=== PATIENT | male | born 1950 | race Caucasian/White ===

== ENCOUNTER 2021-02-25 18:37 | Observation (INO) | payer MEDICARE, SELFPAY ==
[2021-02-25] VITALS (9 sets, daily range): BP systolic 116–160; BP diastolic 67–86; PULSE 78–107; RESP 16–30; TEMP 37–38.7; O2SAT 88–97; BMI 25.7
--- NOTE | 2021-02-25 19:30 | EKG12_ITS ---
Test Reason : SOB Blood Pressure : / mmHG Vent. Rate : 098 BPM Atrial Rate : 098 BPM P-R Int : 154 ms QRS Dur : 094 ms QT Int : 376 ms P-R-T Axes : 022 029 039 degrees QTc Int : 480 ms Normal sinus rhythm Prolonged QT Abnormal ECG Confirmed by MICHAELA BOO, GERONIMO ([id number]), story editor CARMELO FOREMAN ([id number]) on 03/01/2021 9:12:40 AM Referred By: Confirmed By:GERONIMO JENNINGS MD
--- NOTE | 2021-02-25 19:37 | ED.RN ---
NO OLD EKGS IN MUSE
[2021-02-25 20:01] LABS: Absolute Lymphocyte Count 0.46 X10^3/uL (0.83-4.51); Absolute Neutrophil Count 6.7 X10^3/uL (2.0-7.7); Basophil# 0.02 X10^3/uL; Basophil% 0.3 % (0-1); Eosinophil# 0.01 X10^3/uL; Eosinophils% 0.1 % (0-5); Hematocrit 37.5 % (40-54); Hemoglobin 12.4 g/dL (13.0-16.5); Lymphocyte # 0.46 X10^3/ul (0.83-4.51); Mean Corp Hgb Conc 33.1 g/dL (32-36); Mean Corpuscular Hgb 30.2 pg (27.0-32.0); Mean Corpuscular Volume 91.5 fL (80-94); Mean Platelet Vol. 9.5 fl (6.2-12.0); Monocyte# 0.41 X10^3/uL; Monocyte% 5.4 % (0-10); NRBC Flagged by Analyzer 0 % (0-5); Neutrophil # 6.68 X10^3/uL (2.7-7.7); Neutrophil % 87.7 % (47-70); POSITIVE DIFFERENTIAL YES; Platelet Count 142 K/mm3 (150-450); RBC Distribution Width CV 13.2 % (11.6-14.6); RBC Distribution Width SD 43.9 fl (35.1-43.9); White Blood Count 7.6 K/mm3 (4.4-11.0)
--- NOTE | 2021-02-25 20:10 | RAD_ITS ---
HISTORY: SOB EXAMINATION/TECHNIQUE: XR Chest 1 View: Portable AP upright chest x-ray COMPARISON: None FINDINGS: LINES/DEVICES: None. LUNGS: No consolidation, edema or effusion. No pneumothorax. MEDIASTINUM AND CARDIOVASCULAR STRUCTURES: Cardiac silhouette not enlarged. Central airways and mediastinal contour are unremarkable. BONES AND SOFT TISSUES: No acute bony abnormalities. RAD/Chest 1 View (Portable) IMPRESSION: No radiographic evidence of acute cardiopulmonary disease. at 2102 Reported and signed by: Navdeep Tejeda MD Electronically Signed: Navdeep Tejeda MD at 21:01 EDT Tel , Service support ,
[2021-02-25 20:11] LABS: Differential Indicated SCAN CRITERIA MET
--- NOTE | 2021-02-25 20:19 | ED.VIS.DYS ---
HPI History of Present Illness Chief Complaint: Shortness of Breath Informant: patient Narrative Narrative: 70-year-old male presents the emergency room for the evaluation of dyspnea. He tells me that over the past couple days he has felt short of breath. His family states he seemed more short of breath today. He denies any cough. He notes rhinorrhea but states he always has that. He notes fever of 103 at home. He does note myalgias and sweats. No headache sore throat or diarrhea. No nausea or vomiting. [facility] Medical History Diverticulitis High cholesterol Home Medications baclofen 10 mg PO TID 02/25/21 [History Last Taken Unknown] etodolac 400 mg PO DAILY 02/25/21 [History Last Taken Unknown] mesalamine [Pentasa] 500 mg PO DAILY 02/25/21 [History Last Taken Unknown] rosuvastatin 20 mg PO DAILY 02/25/21 [History Last Taken Unknown] Allergy/AdvReac Type Severity Reaction Status Date / Time ibuprofen AdvReac Upset Verified 02/25/21 18:39 Stomach Social History (Updated 02/25/21 @ 20:[address] Keyon Osborne DO) Smoking Status: Former smoker substance use type: does not use ROS ROS ED Constitutional Constitutional ED: Reports chills, fever(s) and sweats; Denies weight loss Eyes Eyes: Denies change in vision or diplopia ENT ENT ED: Reports rhinorrhea; Denies ear pain or sore throat Cardiovascular Cardiovascular: Denies chest pain, orthopnea, palpitations or racing heartbeat Respiratory/Chest Respiratory/Chest: Reports dyspnea and dyspnea on exertion; Denies cough or orthopnea Gastrointestinal Gastrointestinal: Denies abdominal pain, diarrhea, nausea or vomiting Genitourinary Genitourinary ED: Denies dysuria, hematuria or urinary frequency Musculoskeletal Musculoskeletal: Reports myalgias; Denies arthralgias Integumentary Denies abscess or rash Neurologic Neurologic: Denies headache(s) or weakness Psychiatric Psychiatric: Denies anxiety, depression, suicidal ideation or suicidal thoughts Endocrine Endocrinology: Denies polydipsia, polyphagia or polyuria Allergic/Immunologic Allergic/Immunologic ED: Denies mouth swelling, tongue swelling or urticaria EXAM Physical Exam Const Vital Signs: 02/25/21 18:37 02/25/21 18:39 02/25/21 18:52 Temperature 98.6 F 98.6 F Temperature Source Temporal Temporal Pulse Rate 105 H 107 H 107 H Respiratory Rate 22 H 28 H 28 H Respiratory Effort Short of Breath Labored Accessory Muscle Use Respiratory Pattern Blood Pressure 143/74 H 160/86 H 160/86 H Blood Pressure Mean 97 110 110 Pulse Ox 97 94 94 Oxygen Delivery Method Room Air Room Air Room Air Oxygen Flow Rate (L/min) 02/25/21 19:48 02/25/21 20:34 02/25/21 20:47 Temperature 101.7 F H Temperature Source Oral Pulse Rate 97 80 99 Respiratory Rate 30 H 18 30 H Respiratory Effort Respiratory Pattern Normal Blood Pressure 151/74 H 154/72 H Blood Pressure Mean 99 99 Pulse Ox 94 93 88 Oxygen Delivery Method Room Air Room Air Room Air Oxygen Flow Rate (L/min) 02/25/21 22:00 Temperature Temperature Source Pulse Rate 80 Respiratory Rate 16 Respiratory Effort Respiratory Pattern Blood Pressure 126/72 H Blood Pressure Mean 90 Pulse Ox 95 Oxygen Delivery Method Nasal Cannula Oxygen Flow Rate (L/min) 2 Positive well nourished and well developed General Appearance ED: well developed HEENT Reports normocephalic, head/scalp atraumatic and moist mucous membranes HEENT Narrative: Clear rhinorrhea Eyes PERRL and EOMs intact bilaterally Neck no lymphadenopathy, supple and no JVD Resp Resp Narrative: Patient is tachypneic with expiratory wheezes Auscultation: wheezes Cardio regular rate, regular rhythm and no murmurs GI normal to inspection, nondistended, normoactive bowel sounds and non-tender Palpation: soft Back/Spine no CVA tenderness and normal ROM Extremity normal to inspection General Extremety ED: Negative for edema General Extremity: Negative for edema Neuro oriented x3 and CN's II-XII intact bilaterally Sensorium / Orientation: alert Motor Exam: strength 5/5 throughout Psych mental status grossly normal Mood & Affect: Negative for depressed or tearful Skin no rashes or lesions noted and no wounds MDM MDM MDM Narrative Medical decision making narrative: My interpretation of the chest x-ray is no acute process. White count 7.6 with neutrophil percentage at 87.7. Rapid Covid negative. Covid PCR negative. Troponin 22.6. Just sitting the patient onto the side of the bed to ambulate him he drops to 88% and is breathing close to 40 times a minute. He received 4 puffs of albuterol initially followed by some aerosols once the Covid was negative. He was taken to CTA of the chest which was negative for infiltrate and embolism. Noted hilar adenopathy. Because of the hypoxemia is fever and dyspnea plan will be admission. I did send off a respiratory panel. He has no known diagnosis of COPD. Lab Data Attestation: I reviewed the patient's lab results. Labs: Laboratory Results - last 24 hr 02/25/21 02/25/21 02/25/21 19:50 19:50 21:23 WBC 7.6 RBC 4.10 L Hgb 12.4 L Hct 37.5 L MCV 91.5 MCH 30.2 MCHC 33.1 RDW Std Deviation 43.9 RDW Coeff of Janice 13.2 Plt Count 142 L MPV 9.5 Immature Gran % (Auto) 0.500 Neut % (Auto) 87.7 H Lymph % (Auto) 6.0 L [place] % (Auto) 5.4 Eos % (Auto) 0.1 Baso % (Auto) 0.3 Absolute Neuts (auto) 6.7 Absolute Lymphs (auto) 0.46 L Nucleated RBC % 0 Differential Comment Platelet Estimate ADEQUATE RBC Morphology NORM C+C Sodium 130 L Potassium 3.9 Chloride 100 Carbon Dioxide 24.0 Anion Gap 6 BUN 14 Creatinine 1.00 Estim Creat Clear Calc 74.25 Est GFR (MDRD) Af Amer 95 Est GFR (MDRD) Non-Af 79 BUN/Creatinine Ratio 14.0 Glucose 122 H Calcium 8.8 Total Bilirubin 0.90 AST 28 ALT 28 Alkaline Phosphatase 98 Troponin I High Sens 22.6 Total Protein 7.7 Albumin 3.3 Globulin 4.4 H Albumin/Globulin Ratio 0.8 L COVID-19 (LIONEL) Negative Radiography Diagnostic Testing: Radiology Impression Chest X-Ray 02/25/21 20:10 IMPRESSION: No radiographic evidence of acute cardiopulmonary disease. at 2102 Reported and signed by: Navdeep Tejeda MD Electronically Signed: Navdeep Tejeda MD at 21:01 EDT Tel , Service support , Chest CTA 02/25/21 20:48 IMPRESSION: Negative CTA Chest. No acute pulmonary findings. Mediastinal and bilateral hilar adenopathy. Recommend short-term follow-up for stability or resolution. Individualized dose optimization techniques were used for this CT. at 2159 Reported and signed by: Navdeep Tejeda MD Electronically Signed: Navdeep Tejeda MD at 21:57 EDT Tel , Service support , EKG Initial EKG: Attestation: I personally reviewed and interpreted this EKG as follows: Comments: EKG is sinus rhythm at a rate of 98 bpm. No concerning features of ACS or ectopy noted. Discharge Plan Dx/Rx/DC Orders Clinical Impression: Acute febrile illness, Acute bronchospasm, Hypoxemia Disposition Disposition: Acute Care Hospital [facility]
[2021-02-25 20:24] LABS: ALB/GLOB Ratio 0.8 RATIO (0.9-2.4); AST(SGOT) 28 U/L (15-37); Alanine Aminotransfer ALT/SGPT 28 U/L (16-61); Albumin, Serum 3.3 g/dL (3.2-5.0); Alkaline Phosphatase 98 U/L (45-117); Anion Gap 6 (5-15); BUN 14 mg/dL (7-18); Calcium,Total 8.8 mg/dL (8.5-10.1); Chloride 100 mmol/L (98-107); EST Glomerular Filtration Rate 79 mL/min (>60); Est Glom Filt Rate - Afr Amer 95 mL/min (>60); Estimated Creatinine Clearance 74.25 ml/min; Globulin 4.4 g/dL (2.2-4.2); Glucose 122 mg/dL (74-106); Potassium 3.9 mmol/L (3.5-5.1); Protein, Total 7.7 g/dL (6.4-8.2); Sodium Level 130 mmol/L (136-145); Troponin-I HS 22.6 pg/mL (3.0-78.5)
[2021-02-25] MEDS: Acetaminophen 500 MG Tablet 1000 MG PO (20:31)
[2021-02-25] MEDS: INHALER, ASSIST DEVICES 1 EACH SPACER INHALATION (20:33)
--- NOTE | 2021-02-25 20:48 | CT_ITS ---
HISTORY: Shortness of breath EXAMINATION: CTA Chest WO/W Contrast Injection TECHNIQUE: Helically acquired images were obtained of the chest following IV contrast as per pulmonary angiogram protocol with 3D reconstructions. A radiation dose optimization technique was used for this scan. IV Contrast dosage and agent: 100mL Isovue-300 COMPARISON: None FINDINGS: LUNGS, PLEURA AND LARGE AIRWAYS: No masses, consolidation, or edema. No pleural effusion. No pneumothorax. THYROID: No thyroid lesions. PULMONARY ARTERIES: Normal in caliber. No pulmonary embolism. AORTA AND GREAT VESSELS: No aneurysm or dissection. HEART AND PERICARDIUM: Heart size is normal. No pericardial effusion. No signs of right heart strain. MEDIASTINUM AND HELEN: Mediastinal and bilateral hilar adenopathy. Esophagus is unremarkable. No hiatal hernia. UPPER ABDOMEN: No acute pathology. Nodular thickening of the bilateral adrenals BONES: No acute or aggressive abnormality. CT/CTA Chest W/WO Contrast IMPRESSION: Negative CTA Chest. No acute pulmonary findings. Mediastinal and bilateral hilar adenopathy. Recommend short-term follow-up for stability or resolution. Individualized dose optimization techniques were used for this CT. at 2159 Reported and signed by: Navdeep Tejeda MD Electronically Signed: Navdeep Tejeda MD at 21:57 EDT Tel , Service support ,
[2021-02-25 20:59] LABS: Platelet Estimate ADEQUATE (ADEQ)
[2021-02-25 21:00] LABS: Red Cell Morphology NORM C+C NORMAL (NORM C&C)
[2021-02-25 22:31] LABS: Probe Check PASS; Specimen Processing Control PASS
[2021-02-25 23:19] LABS: Bacteria 0 SEEN /hpf (None Seen); Mucous, Urine 0 SEEN /hpf (<or=2+); Red Blood Cells-Urine 0 SEEN /hpf (0-5); Squamous Epithelial Cells - UA 0 SEEN /hpf (0-5); White Blood Cells 0 SEEN /hpf (0-5)
[2021-02-25 23:22] LABS: Color, Urine Yellow (Yellow); Glucose, Dipstick Normal (Normal); Ketone-Dipstick Negative (Negative); Leukocyte Esterase-Dipstick Negative /ul (Negative); Nitrite-Dipstick Negative (Negative); Occult Blood-Urine Negative /ul (Negative); Protein-Dipstick Negative (Negative); Specific Gravity, Urine 1.005 (1.002-1.030); Urine Bilirubin Dipstick Negative (Negative); Urine Clarity Clear (Clear); Urine Urobilinogen Normal (Normal)
[2021-02-25] MEDS: Ipratropium/Albuterol Sulfate 3 ML AMPUL.NEB INHALATION (23:41)
--- NOTE | 2021-02-25 23:46 | HP.PCM_ITS ---
Documented by User: TIFFANIE Sauceda 02/26/21 00:19 HPI - General General Date of Admission: 02/25/21 Date of Service: 02/25/21 Chief Complaint: Shortness of breath HPI Narrative NISHA MARTINS, is a 70 M who presents with complaints of shortness of breath, fever, myalgias that have been increasingly worse over the past 3 days. Patient states that his fever was as high as 103 at home. Patient denies sore throat, cough, nausea, vomiting, diarrhea, constipation. [facility] Medical History Alcohol abuse Arthritis Diverticulitis Former smoker High cholesterol Home Medications baclofen 10 mg PO TID 02/25/21 [History Last Taken 02/25/21 07:00] etodolac 400 mg PO BID 02/25/21 [History Last Taken 02/25/21 07:00] mesalamine [Pentasa] 500 mg PO BID 02/25/21 [History Last Taken 02/25/21 07:00] rosuvastatin 20 mg PO QHS 02/25/21 [History Last Taken 02/24/21 22:00] Allergy/AdvReac Type Severity Reaction Status Date / Time ibuprofen AdvReac Upset Verified 02/25/21 18:39 Stomach Family History Mother COPD (chronic obstructive pulmonary disease) Father Myocardial infarction no surgical history Social History Smoking Status: Former smoker alcohol intake: current alcohol intake frequency: 3 or more drinks per day Alcohol type: beer details: Patient states that he drinks a 12 pack/day of 12 ounce beers substance use type: does not use ROS Constitutional Constitutional: Reports chills, fever(s) and malaise; Denies anorexia, fatigue or weakness Cardiovascular Cardiovascular: Denies chest pain, edema or palpitations Respiratory/Chest Respiratory/Chest: Reports shortness of breath at rest, shortness of breath with exertion and wheezing; Denies cough Gastrointestinal Gastrointestinal: Denies abdominal pain, constipation, diarrhea, nausea or vomiting Genitourinary Genitourinary: Denies dysuria Musculoskeletal Musculoskeletal: Denies back pain, extremity pain, joint pain or joint stiffness Integumentary Integumentary: Denies dry skin Neurologic Neurologic: Denies abnormal gait, abnormal speech, confusion or dizziness Psychiatric Psychiatric: Denies anxiety or depression Endocrine Endocrinology: Denies change in body appearance Hematologic/Lymphatic Hematologic/Lymphatic: Denies easy bleeding or easy bruising Vital Signs Vital Signs Vital Signs: 02/25/21 18:37 02/25/21 18:39 02/25/21 18:52 Temperature 98.6 F 98.6 F Temperature Source Temporal Temporal Pulse Rate 105 H 107 H 107 H Respiratory Rate 22 H 28 H 28 H Respiratory Effort Short of Breath Labored Accessory Muscle Use Respiratory Pattern Blood Pressure 143/74 H 160/86 H 160/86 H Blood Pressure Mean 97 110 110 Pulse Ox 97 94 94 Oxygen Delivery Method Room Air Room Air Room Air Oxygen Flow Rate (L/min) 02/25/21 19:48 02/25/21 20:34 02/25/21 20:47 Temperature 101.7 F H Temperature Source Oral Pulse Rate 97 80 99 Respiratory Rate 30 H 18 30 H Respiratory Effort Respiratory Pattern Normal Blood Pressure 151/74 H 154/72 H Blood Pressure Mean 99 99 Pulse Ox 94 93 88 Oxygen Delivery Method Room Air Room Air Room Air Oxygen Flow Rate (L/min) 02/25/21 22:00 02/25/21 23:42 Temperature Temperature Source Pulse Rate 80 82 Respiratory Rate 16 18 Respiratory Effort Respiratory Pattern Normal Blood Pressure 126/72 H Blood Pressure Mean 90 Pulse Ox 95 97 Oxygen Delivery Method Nasal Cannula Nasal Cannula Oxygen Flow Rate (L/min) 2 2 Weight Weight: 185 lb Body Mass Index (BMI) 25.7 Physical Exam Const alert, oriented x3 and no apparent distress General Appearance: cooperative HEENT normocephalic and head/scalp atraumatic Eyes conjunctivae normal and no scleral icterus Neck supple and no JVD General: trachea midline Resp normal respiratory effort Auscultation: wheezes expiratory wheezes, anterior, posterior and throughout Cardio regular rate, regular rhythm, S1 normal heart sound, S2 normal heart sound and peripheral pulses 2+ throughout GI normal to inspection, nondistended, normoactive bowel sounds, soft to palpation and non-tender Extremity normal capillary refill and no clubbing, cyanosis or edema General Extremity: no tenderness to palpation of joints or extremities Skin General Skin Exam: no breakdown and turgor normal Lesions: no lesions Rashes: no rashes Neuro no focal motor deficits and no sensory deficits noted Speech: speech normal Motor Exam: Negative for general weakness Psych thought process normal, cooperative and affect normal Appearance: appropriate Results Lab / Micro Data Result Diagrams: 02/25/21 19:50 02/25/21 19:50 Labs: Laboratory Results - last 24 hr 02/25/21 19:50: WBC 7.6, RBC 4.10 L, Hgb 12.4 L, Hct 37.5 L, MCV 91.5, MCH 30.2, MCHC 33.1, RDW Std Deviation 43.9, RDW Coeff of Janice 13.2, Plt Count 142 L, MPV 9.5, Immature Gran % (Auto) 0.500, Neut % (Auto) 87.7 H, Lymph % (Auto) 6.0 L, [place] % (Auto) 5.4, Eos % (Auto) 0.1, Baso % (Auto) 0.3, Absolute Neuts (auto) 6.7, Absolute Lymphs (auto) 0.46 L, Nucleated RBC % 0, Differential Comment , Platelet Estimate ADEQUATE, RBC Morphology NORM C+C 02/25/21 19:50: Sodium 130 L, Potassium 3.9, Chloride 100, Carbon Dioxide 24.0, Anion Gap 6, BUN 14, Creatinine 1.00, Estim Creat Clear Calc 74.25, Est GFR (MDRD) Af Amer 95, Est GFR (MDRD) Non-Af 79, BUN/Creatinine Ratio 14.0, Glucose 122 H, Calcium 8.8, Total Bilirubin 0.90, AST 28, ALT 28, Alkaline Phosphatase 98, Troponin I High Sens 22.6, Total Protein 7.7, Albumin 3.3, Globulin 4.4 H, Albumin/Globulin Ratio 0.8 L 02/25/21 21:23: COVID-19 ([facility]ION[facility]) Negative 02/25/21 22:00: Urine Color Yellow, Urine Clarity Clear, Urine pH 6.0, Ur Specific [place] 1.005, Urine Protein Negative, Urine Glucose (UA) Normal, Urine Ketones Negative, Urine Occult Blood Negative, Urine Nitrite Negative, Urine Bilirubin Negative, Urine Urobilinogen Normal, Ur Leukocyte Esterase Negative, Urine RBC 0 SEEN, Urine WBC 0 SEEN, Ur Squamous Epith Cells 0 SEEN, Urine Bacteria 0 SEEN, Urine Mucus 0 SEEN Micro: Microbiology 02/25/21 19:00 Mucosa - Nose SARS-CoV-2 Antigen (Rapid) - Final Radiology Impression Chest X-Ray 02/25/21 20:10 IMPRESSION: No radiographic evidence of acute cardiopulmonary disease. at 2102 Reported and signed by: Navdeep Tejeda MD Electronically Signed: Navdeep Tejeda MD at 21:01 EDT Tel , Service support , Chest CTA 02/25/21 20:48 IMPRESSION: Negative CTA Chest. No acute pulmonary findings. Mediastinal and bilateral hilar adenopathy. Recommend short-term follow-up for stability or resolution. Individualized dose optimization techniques were used for this CT. at 2159 Reported and signed by: Navdeep Tejeda MD Electronically Signed: Navdeep Tejeda MD at 21:57 EDT Tel , Service support , Assessment & Plan Assessment/Plan (1) Acute bronchitis with bronchospasm: PLAN: 1. Acute bronchitis with bronchospasm -Admit to MedSurg -Scheduled duonebs with as needed albuterol nebulizer treatments ordered -Encourage incentive spirometry -IV Solu-Medrol ordered -Oxygen per protocol -Covid antigen and PCR negative -Respiratory panel pending. -Chest x-ray and chest CT negative for acute pulmonary findings 2. Acute febrile illness -As needed Tylenol ordered -Patient reports temperature as high as 103 at home, 101.7 in ER 3.Diverticulosis -Continue mesalamine 4. Hyperlipidemia -Continue rosuvastatin DVT prophylaxis-subcu Lovenox This patient was seen by Cristy Daly, ABEL-C under the supervision of Dr. Hall. Documented by User: Dr. Lb Hall MD 02/26/21 02:07 HPI - General General Date of Admission: 02/25/21 Date of Service: 02/25/21 Chief Complaint: Fever 103 Fahrenheit and shortness of breath HPI Narrative This 70-year-old question intermittent came to ER for fever and shortness of breath. His temperature was 103 Fahrenheit at home. Patient denies chronic lung disease and is a former smoker. Denies history of chronic heart disease. No chest pain. Patient has chronic alcohol use disorder and drinks 12 bottles of 12 ounce beer every day. Denies any alcohol withdrawal. Abnormal remarkable labs were platelet count 142,000, sodium 130. CTA chest was negative with no acute pulmonary finding. Mediastinal bilateral hilar adenopathy. The patient had bronchodilator, Solu-Medrol and was further admitted. T-max noted in ER 101.7 Fahrenheit. [facility] Medical History Alcohol abuse Arthritis Diverticulitis Former smoker High cholesterol Home Medications baclofen 10 mg PO TID 02/25/21 [History Last Taken 02/25/21 07:00] etodolac 400 mg PO BID 02/25/21 [History Last Taken 02/25/21 07:00] mesalamine [Pentasa] 500 mg PO BID 02/25/21 [History Last Taken 02/25/21 07:00] rosuvastatin 20 mg PO QHS 02/25/21 [History Last Taken 02/24/21 22:00] Allergy/AdvReac Type Severity Reaction Status Date / Time ibuprofen AdvReac Upset Verified 02/25/21 18:39 Stomach Family History Mother COPD (chronic obstructive pulmonary disease) Father Myocardial infarction Social History Smoking Status: Former smoker alcohol intake: current alcohol intake frequency: 3 or more drinks per day Alcohol type: beer details: Patient states that he drinks a 12 pack/day of 12 ounce beers substance use type: does not use Physical Exam Narrative General: Alert, Oriented x3, Cooperative HEENT: Atraumatic, PERRLA, EOMI, Normocephalic Oral: Dry oral mucosa. No Gingival or Mucosal Lesions/ Ulcerations Neck: Supple, No JVD, Negative Carotid Bruits Lungs: Air entry equal in bilateral lung bases. No crepitation/rhonchi Cardiovascular: Regular rate, Regular Rhythm, Normal S1, Normal S2, No murmurs Abdomen: Bowel Sounds Present, Soft, Non Tender, Non-Distended : No renal angle tenderness. No suprapubic tenderness. Extremities: No edema, Capillary Refill Less than 3 Seconds Skin: No rashes, No breakdown Musculoskeletal: No Tenderness to Palpation of Joints or Extremities Neurological: Cranial nerves II-XII grossly intact, DTR 2+/4 and Symmetrical, Neuro grossly intact Psych/Mental Status: Frigid, restless Results Lab / Micro Data Result Diagrams: 02/25/21 19:50 02/25/21 19:50 Assessment & Plan Assessment/Plan (1) Acute bronchitis with bronchospasm: PLAN: This patient was seen in conjunction with ABEL Muniz. I have independently interviewed and examined the patient and reviewed pertinent history, examination findings, laboratory and plan of management. I have reviewed the note and agree with the documented findings with the few additional points. In brief, patient is 70-year-old gentleman is being admitted for acute febrile illness, probably acute bronchitis with bronchospasm and mild hypoxia. Extensive work-up including CTA chest was negative except bilateral hilar adenopathy and mediastinal adenopathy which will need further prospective follow-up as outpatient. Rapid COVID-19 antigen and PCR negative. Respiratory panel ordered. Blood culture x2 ordered. If patient further spikes temperature will need antibiotic but will hold for now. DuoNeb as needed for bronchospasm/shortness of breath or wheezing. 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 Patient also complained of muscle spasm. Serum magnesium and phosphorus level are normal. Monitor labs tomorrow a.m. IV fluid LR for dehydration. Other comorbidities as mentioned above. I have discussed my assessment with ABEL Muniz and orders have been reviewed. Living will/advanced directive/end of life care: Patient does not have living will or advanced directive. After discussion of benefits/risks procedures involved with full code, DNR CC arrest and DNR CC, the patient opted for full code. Patient does want artificial life support including intubation, tube feed, ventilator and/chest compression, central venous catheter, vasopressor and DC sh ock if needed Total time spent in [id number] encounter in discussion of advanced directive 16 minutes. Clinical Impression(s) from Imaging Studies Chest X-Ray 02/25/21 20:10 IMPRESSION: No radiographic evidence of acute cardiopulmonary disease. Chest CTA 02/25/21 20:48 IMPRESSION: Negative CTA Chest. No acute pulmonary findings. Mediastinal and bilateral hilar adenopathy. Recommend short-term follow-up for stability or resolution. Charges/Coding Visit Charges Inpatient E&M: 83507 Init Hosp L3 Procedures Hospitalists Procedures: 45178 Advncd Care Plan 30 Min
[2021-02-26] VITALS (8 sets, daily range): BP systolic 113–131; BP diastolic 62–74; PULSE 72–88; RESP 16–21; TEMP 36.5–37.1; O2SAT 94–99; BMI 26.6
[2021-02-26 00:45] LABS: Magnesium 2.1 mg/dL (1.6-2.6); Phosphorus 2.9 mg/dL (2.5-4.9)
[2021-02-26] MEDS: Lactated Ringers 1,000 ML 150 ML IV (01:48)
[2021-02-26] MEDS: 0.9% Saline Lock 10 ML Syringe IV (01:50)
[2021-02-26 02:31] LABS: Amphetamine Urine VISTA NEGATIVE (<1000 ng/mL); Barbiturate Urine VISTA NEGATIVE (< 200 ng/mL); Benzodiazepine Urine VISTA NEGATIVE (< 200 ng/mL); Cocaine Urine VISTA NEGATIVE (< 300 ng/mL); Ecstacy Urine VISTA NEGATIVE (< 500 ng/mL); Methadone Urine VISTA NEGATIVE (< 300 ng/mL); PCP Urine VISTA NEGATIVE (< 25 ng/mL); THC Urine VISTA NEGATIVE (< 50 ng/mL); Vista UDS pH Range 5
[2021-02-26] MEDS: Baclofen 10 MG Tablet PO (05:38)
[2021-02-26 07:21] LABS: Absolute Lymphocyte Count 0.86 X10^3/uL (0.83-4.51); Absolute Neutrophil Count 5.3 X10^3/uL (2.0-7.7); Basophil# 0.01 X10^3/uL; Basophil% 0.1 % (0-1); Eosinophil# 0.06 X10^3/uL; Eosinophils% 0.9 % (0-5); Hematocrit 38.5 % (40-54); Hemoglobin 12.4 g/dL (13.0-16.5); Lymphocyte # 0.86 X10^3/ul (0.83-4.51); Lymphocyte % 12.6 % (19-41); Mean Corp Hgb Conc 32.2 g/dL (32-36); Mean Corpuscular Hgb 30.4 pg (27.0-32.0); Mean Corpuscular Volume 94.4 fL (80-94); Mean Platelet Vol. 9.6 fl (6.2-12.0); Monocyte# 0.63 X10^3/uL; Monocyte% 9.2 % (0-10); NRBC Flagged by Analyzer 0 % (0-5); Neutrophil # 5.26 X10^3/uL (2.7-7.7); Neutrophil % 76.8 % (47-70); Platelet Count 139 K/mm3 (150-450); RBC Distribution Width CV 13.3 % (11.6-14.6); RBC Distribution Width SD 45.9 fl (35.1-43.9); Red Blood Count 4.08 M/mm3 (4.6-6.2); White Blood Count 6.9 K/mm3 (4.4-11.0)
[2021-02-26 07:36] LABS: Anion Gap 7 (5-15); BUN 12 mg/dL (7-18); BUN/Creat Ratio 13.9 RATIO (10-20); Calcium,Total 8.4 mg/dL (8.5-10.1); Chloride 104 mmol/L (98-107); Creatinine, Serum 0.86 mg/dL (0.70-1.30); EST Glomerular Filtration Rate 93 mL/min (>60); Est Glom Filt Rate - Afr Amer 113 mL/min (>60); Estimated Creatinine Clearance 86.34 ml/min; Glucose 104 mg/dL (74-106); Potassium 3.7 mmol/L (3.5-5.1); Sodium Level 137 mmol/L (136-145)
[2021-02-26] MEDS: Ipratropium/Albuterol Sulfate 3 ML AMPUL.NEB INHALATION ×2 (07:42→10:28)
[2021-02-26] MEDS: Etodolac 200 MG Capsule 400 MG PO (10:45)
[2021-02-26] MEDS: Enoxaparin 40 MG/0.4 ML Syringe SC (10:45)
--- NOTE | 2021-02-26 10:48 | DS.PCM_ITS ---
Providers Date of Admission: 02/26/21 Primary Care Physician: Dorcas Villanueva Reason For Visit: ACUTE BRONCHITIS WITH BRONCHOSPASM Diagnosis Discharge Diagnosis (1) Acute bronchitis with bronchospasm: Status: Acute Code(s): J20.9 - Acute bronchitis, unspecified Medications at Discharge Home Medications Pentasa 500 mg PO BID 02/25/21 baclofen 10 mg PO TID 02/25/21 etodolac 400 mg PO BID 02/25/21 rosuvastatin 20 mg PO QHS 02/25/21 albuterol sulfate 1 inh INHALATION Q6H PRN #8.5 g 02/26/21 levofloxacin 750 mg PO DAILY #7 tab 02/26/21 prednisone 10 mg PO DAILY #30 tab 02/26/21 Hospital Course Operations None Procedures None Summary of Care Provided Minutes Spent on Discharge: 38 Hospital Course: Mr. Hunter is a 70-year-old white male who presented to the emergency department [facility] on 02/25/2021 with a chief complaint of shortness of breath and fever. He states he had a subjective fever of 103 at home and in the emergency department had a T-max of 101.7. He has known COPD but had quit smoking in the last year. He denies any chest pain and had no other significant complaints on admission. He did admit to chronic alcohol use and reported that he drinks 12 bottles of 12 ounce beer a day. He was admitted to the medical floor and treated with nebulizers. His fevers resolved and he was able to be on room air with oxygen saturation during ambulation of 94%. The patient stated he felt 100% better and was anxious to go home. Given the fact that he had no further fevers and was on room air I agreed to discharge him. We sent him home with Levaquin for 7 days, short course of prednisone taper, and albuterol HFA. He is never had pulmonary function studies but given his extensive history of smoking I recommend he have PFTs when he has recovered from his current issues. Blood cultures were obtained on admission and we will follow these I told him we would call if he needed to represent to the hospital for any reason with regards to his blood cultures. He had a negative COVID-19 rapid test and his viral respiratory PCR was negative as well. He is to follow-up with his PCP in 1 week and was given a referral to follow-up with pulmonary as an outpatient. Discharge diagnoses: Acute febrile illness-etiology unknown Acute exacerbation of COPD Mild chronic anemia Chronic thrombocytopenia Hyperlipidemia Diverticulitis History of alcohol abuse OA History of tobacco abuse Physical Exam Narrative Patient states he is 100% better than when he came in yesterday. He feels like he is back to baseline and would really like to go home. Const alert, oriented x3 and no apparent distress Constitutional Narrative: Older white male sitting up in bed appears comfortable currently on room air, appears nontoxic, watching television General Appearance: cooperative, comfortable, well developed and disheveled Orientation / Consciousness: awake HEENT normocephalic, head/scalp atraumatic, hearing grossly normal bilaterally and moist oral mucous membranes HEENT Narrative: Poor dentition Eyes PERRL, EOMs intact bilaterally and conjunctivae normal Neck no lymphadenopathy, supple and no JVD Neck Narrative: Trachea midline Resp normal respiratory effort, no retractions and no use of accessory muscles Resp Narrative: Diffusely diminished-marked but no wheeze Auscultation: Negative for crackles, rales, rhonchi or wheezes Cardio regular rate, regular rhythm, S1 normal heart sound, S2 normal heart sound, no murmurs, no rub, no gallops, no clicks and no JVD GI normal to inspection, nondistended, normoactive bowel sounds, soft to palpation, non-tender and non-distended; Negative for hepatosplenomegaly Extremity normal to inspection, full ROM and no clubbing, cyanosis or edema General Extremity: Negative for edema Skin no rashes or lesions noted, no wounds, skin turgor normal and no jaundice Neuro oriented x3, CN's II-XII intact bilaterally, moves all extremities and no focal motor deficits Sensorium / Orientation: awake, alert, oriented to person, oriented to place and oriented to time Speech: speech normal Motor Exam: strength 5/5 throughout Psych affect normal Psych Narrative: Very pleasant Weight / BMI Weight Weight: 86.5 kg Body Mass Index (BMI) 26.6 ABG / Lab / Microbiology Data Result Diagrams: 02/26/21 06:40 02/26/21 06:40 Laboratory: Laboratory Results - last 24 hr 02/25/21 19:50: WBC 7.6, RBC 4.10 L, Hgb 12.4 L, Hct 37.5 L, MCV 91.5, MCH 30.2, MCHC 33.1, RDW Std Deviation 43.9, RDW Coeff of Janice 13.2, Plt Count 142 L, MPV 9.5, Immature Gran % (Auto) 0.500, Neut % (Auto) 87.7 H, Lymph % (Auto) 6.0 L, [place] % (Auto) 5.4, Eos % (Auto) 0.1, Baso % (Auto) 0.3, Absolute Neuts (auto) 6.7, Absolute Lymphs (auto) 0.46 L, Nucleated RBC % 0, Differential Comment , Platelet Estimate ADEQUATE, RBC Morphology NORM C+C 02/25/21 19:50: Sodium 130 L, Potassium 3.9, Chloride 100, Carbon Dioxide 24.0, Anion Gap 6, BUN 14, Creatinine 1.00, Estim Creat Clear Calc 74.25, Est GFR (MDRD) Af Amer 95, Est GFR (MDRD) Non-Af 79, BUN/Creatinine Ratio 14.0, Glucose 122 H, Calcium 8.8, Total Bilirubin 0.90, AST 28, ALT 28, Alkaline Phosphatase 98, Troponin I High Sens 22.6, Total Protein 7.7, Albumin 3.3, Globulin 4.4 H, Albumin/Globulin Ratio 0.8 L 02/25/21 19:50: Phosphorus 2.9, Magnesium 2.1 02/25/21 21:23: COVID-19 (LIONEL) Negative 02/25/21 22:00: Urine Color Yellow, Urine Clarity Clear, Urine pH 6.0, Ur Specific [place] 1.005, Urine Protein Negative, Urine Glucose (UA) Normal, Urine Ketones Negative, Urine Occult Blood Negative, Urine Nitrite Negative, Urine Bilirubin Negative, Urine Urobilinogen Normal, Ur Leukocyte Esterase Negative, Urine RBC 0 SEEN, Urine WBC 0 SEEN, Ur Squamous Epith Cells 0 SEEN, Urine Bacteria 0 SEEN, Urine Mucus 0 SEEN 02/25/21 23:30: Lactic Acid 1.0 02/26/21 02:00: Urine Opiates Screen NEGATIVE, Urine Methadone Screen NEGATIVE, Ur Barbiturates Screen NEGATIVE, Ur Phencyclidine Scrn NEGATIVE, Ur Amphetamines Screen NEGATIVE, U Methamphetamin-MDMA NEGATIVE, U Benzodiazepines Scrn NEGATIVE, Urine Cocaine Screen NEGATIVE, U Cannabinoids Screen NEGATIVE, Ur Drug Screen Comment 02/26/21 06:40: WBC 6.9, RBC 4.08 L, Hgb 12.4 L, Hct 38.5 L, MCV 94.4 H, MCH 30.4, MCHC 32.2, RDW Std Deviation 45.9 H, RDW Coeff of Janice 13.3, Plt Count 139 L, MPV 9.6, Immature Gran % (Auto) 0.400, Neut % (Auto) 76.8 H, Lymph % (Auto) 12.6 L, [place] % (Auto) 9.2, Eos % (Auto) 0.9, Baso % (Auto) 0.1, Absolute Neuts (auto) 5.3, Absolute Lymphs (auto) 0.86, Nucleated RBC % 0 02/26/21 06:40: Sodium 137, Potassium 3.7, Chloride 104, Carbon Dioxide 26.0, Anion Gap 7, BUN 12, Creatinine 0.86, Estim Creat Clear Calc 86.34, Est GFR (MDRD) Af Amer 113, Est GFR (MDRD) Non-Af 93, BUN/Creatinine Ratio 13.9, Glucose 104, Calcium 8.4 L Microbiology: Microbiology 02/25/21 21:23 Mucosa - Nose Respiratory Panel (PCR) - Final 02/25/21 19:00 Mucosa - Nose SARS-CoV-2 Antigen (Rapid) - Final Radiography Diagnostic Testing: Radiology Impression Chest X-Ray 02/25/21 20:10 IMPRESSION: No radiographic evidence of acute cardiopulmonary disease. at 2102 Reported and signed by: Navdeep Tejeda MD Electronically Signed: Navdeep Tejeda MD at 21:01 EDT Tel , Service support , Chest CTA 02/25/21 20:48 IMPRESSION: Negative CTA Chest. No acute pulmonary findings. Mediastinal and bilateral hilar adenopathy. Recommend short-term follow-up for stability or resolution. Individualized dose optimization techniques were used for this CT. at 2155 Reported and signed by: Navdeep Tejeda MD Electronically Signed: Navdeep Tejeda MD at 21:57 EDT Tel , Service support , D/C Instructions Discharge Diet: Low fat / Low cholesterol Meaningful Use Info Meaningful Use Diagnoses (Choose all that apply): None applicable Discharge Plan Admission Admit Date/Time: 02/26/21 00:16 Primary Reason for Your Visit: SOB Attending Provider: Tiffany Becker Primary Care Provider: Dorcas Villanueva Discharge Orders/Prescriptions Prescriptions: New prednisone 10 mg tablet 10 mg PO DAILY Qty: 30 RF: 0 levofloxacin 750 mg tablet 750 mg PO DAILY Qty: 7 RF: 0 albuterol sulfate 90 mcg/actuation HFA aerosol inhaler 1 inh inhalation Q6H PRN (Reason: shortness of breath or wheezing) Qty: 8.5 RF: 1 Continued baclofen 10 mg tablet 10 mg PO TID RF: 0 etodolac 400 mg tablet 400 mg PO BID RF: 0 rosuvastatin 20 mg tablet 20 mg PO QHS RF: 0 Pentasa 500 mg capsule, extended release 500 mg PO BID RF: 0 Referrals / Follow Up: Delvis Parker MD [STAFF PHYSICIAN] - Within 1 Month (for COPD) Dorcas Villanueva [Primary Care Provider] - In 1 Week Disposition Disposition (needs filled in before D/C Order can be placed): Home, Self Care Charges/Coding Visit Charges Inpatient E&M: 66696 Disch Hosp
--- NOTE | 2021-02-26 11:05 | CASEMGMT ---
Addendum entered by JoséL uis Cho 02/26/21 18:29: Amb pulse ox completed--94% RA. Pt does not qualify for Home O2. Original Note: SYDNI PRESTON NOTE: Pt being discharged. SYDNI PRESTON to room. Pt states he has no concerns w/going home @ d/c. He states, I'm ready. He lives w/his and her son lives w/them. He is independent and uses no DME. 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 He denies home-going needs/questions. Flaquita LYNN RN CM
--- NOTE | 2021-02-26 11:17 | PCM.DC ---
Discharge Instructions Diet Discharge Diet: Low fat / Low cholesterol Follow Up Care Test Results: Test results from this visit will be discussed in further detail at your follow-up appointment, if applicable. Discharge Plan Admission Admit Date/Time: 02/26/21 00:16 Primary Reason for Your Visit: SOB Attending Provider: Tiffany Becker Primary Care Provider: Dorcas Villanueva Discharge Orders/Prescriptions Prescriptions: New prednisone 10 mg tablet 10 mg PO DAILY Qty: 30 RF: 0 levofloxacin 750 mg tablet 750 mg PO DAILY Qty: 7 RF: 0 albuterol sulfate 90 mcg/actuation HFA aerosol inhaler 1 inh inhalation Q6H PRN (Reason: shortness of breath or wheezing) Qty: 8.5 RF: 1 Continued baclofen 10 mg tablet 10 mg PO TID RF: 0 etodolac 400 mg tablet 400 mg PO BID RF: 0 rosuvastatin 20 mg tablet 20 mg PO QHS RF: 0 Pentasa 500 mg capsule, extended release 500 mg PO BID RF: 0 Referrals / Follow Up: Delvis Parker MD [STAFF PHYSICIAN] - Within 1 Month (for COPD) Dorcas Villanueva [Primary Care Provider] - In 1 Week Disposition Disposition (needs filled in before D/C Order can be placed): Home, Self Care
== END 2021-02-26 13:16 | disposition home or self-care (01) ==
LOC: ED 22:59 → MS3 02-26 00:33
PROVIDERS: Nurse Practitioner Family; Admitting Provider Internal Medicine; Emergency Provider Emergency Medicine; PCP Family Medicine; Visit Provider Internal Medicine
DX: J44.0 Chronic obstructive pulmonary disease with (acute) lower respiratory infection (principal); J20.9 Acute bronchitis, unspecified; E78.00 Pure hypercholesterolemia, unspecified; Z87.891 Personal history of nicotine dependence; Z79.899 Other long term (current) drug therapy; F10.10 Alcohol abuse, uncomplicated; M19.90 Unspecified osteoarthritis, unspecified site; E78.5 Hyperlipidemia, unspecified; K57.90 Diverticulosis of intestine, part unspecified, without perforation or abscess without bleeding
CPT/HCPCS: 36415; 71045; 71275; 80048; 80053; 80307; 81001; 83605; 83735; 84100; 84484; 85025; 87040; 87426; 87633; 87635; 93005; 94640; 94760; 96360; 96361; 96372; 99218; 99251; 99284; 99406; J7120; Q9967; U0005; A4216; G0378; G0463; U0003

== ENCOUNTER 2024-06-19 09:01 | Inpatient (IN) | payer MEDICARE, SELFPAY ==
[2024-06-19] VITALS (12 sets, daily range): BP systolic 75–124; BP diastolic 62–80; PULSE 68–99; RESP 15–18; TEMP 36.3–36.6; O2SAT 94–100; BMI 22.4; BMI 22.9
--- NOTE | 2024-06-19 09:34 | EX.ED.DYSGE1 ---
HPI History of Present Illness Chief Complaint: GI Bleed Detail of Chief Complaint: Shitting blood for the past couple of weeks Informant: patient Onset/Context/Timing Onset: Weeks Context: Sudden Onset Timing: Intermittent Quality: Blood mixed with diarrhea Location: GI Current Severity: Moderate Maximum Severity: Moderate Worsened by: Patient with history of UC presently on no treatment Relieved by: Nothing Associated Symptoms Associated Symptoms: None Narrative Narrative: Patient is a 74-year-old male. He has history of diverticulosis and diverticulitis as well as ulcerative colitis. Initially he told me that he has history of diverticulosis. After performing anoscopy asked if he has a history of inflammatory bowel disorder and he looked at me puzzled. As if there is a history of Crohn's. He denied history of Crohn's. When asked if he has a history of ulcerative colitis he acknowledged he does. He is placed on no meds. He has not seen his GI specialist for some time. He is a smoker. He denies weight gain or weight loss. He denies orthostatic symptoms. He does endorse thirst. He is a smoker. Patient denies fever, chills night sweats. Patient denies headache, visual, ocular auditory symptoms. Patient denies cardiac respiratory symptoms. Patient denies abdominal pain. He denies nausea or vomiting. Prior similar symptoms: Yes Recent Illness/Hospitalization: No PFSH [facility] Medical History (Updated 06/19/24 @ 13:[address] Abran Ochoa MD) Ulcerative colitis Alcohol abuse Arthritis Former smoker High cholesterol Diverticulitis Home Medications ?Medication ?Instructions ?Recorded ?Last Taken ?Type baclofen 10 mg tablet 10 mg PO TID pain 02/25/21 02/25/21 07:00 History etodolac 400 mg tablet 400 mg PO BID inflammation 02/25/21 02/25/21 07:00 History mesalamine 500 mg capsule,extended 500 mg PO BID pain/inflammation 02/25/21 02/25/21 07:00 History release (Pentasa) rosuvastatin 20 mg tablet 20 mg PO QHS cholesterol 02/25/21 02/24/21 22:00 History albuterol sulfate 90 mcg/actuation 1 inh inhalation Q6H PRN shortness 02/26/21 Unknown Rx aerosol inhaler of breath or wheezing #8.5 grams levofloxacin 750 mg tablet 750 mg PO DAILY #7 tabs 02/26/21 Unknown Rx prednisone 10 mg tablet 10 mg PO DAILY #30 tabs 02/26/21 Unknown Rx ciprofloxacin HCl 500 mg tablet 500 mg PO BID #14 TABLETS 06/19/24 Unknown Rx diphenoxylate-atropine 2.5 1 tab PO 4X/DAY 06/19/24 Unknown History mg-0.025 mg tablet metronidazole 500 mg tablet 500 mg PO Q8H #21 tabs 06/19/24 Unknown Rx prednisone 10 mg tablet 10 mg PO DAILY #48 TABLETS 06/19/24 Unknown Rx pregabalin 150 mg capsule 150 mg PO BID 06/19/24 Unknown History simvastatin 20 mg tablet 20 mg PO QHS 06/19/24 Unknown History triamcinolone acetonide 0.5 % applic topical BID 06/19/24 Unknown History topical cream Allergy/AdvReac Type Severity Reaction Status Date / Time ibuprofen AdvReac Upset Verified 06/19/24 09:02 Stomach Family History Mother COPD (chronic obstructive pulmonary disease) Father Myocardial infarction Social History Smoking Status: Former smoker alcohol intake: current alcohol intake frequency: 3 or more drinks per day Alcohol type: beer details: Patient states that he drinks a 12 pack/day of 12 ounce beers substance use type: does not use ROS ROS ED Constitutional Constitutional ED: Denies chills, fever(s) or subjective Eyes Eyes: Denies blurry vision or change in vision ENT ENT ED: Denies rhinorrhea or sore throat Cardiovascular Cardiovascular: Denies chest pain or palpitations Respiratory/Chest Respiratory/Chest: Denies cough, dyspnea or dyspnea on exertion Gastrointestinal Gastrointestinal: Reports diarrhea and other Details: Hematochezia ; Denies abdominal pain, constipation, melena, nausea or vomiting Genitourinary Genitourinary ED: Denies dysuria, hematuria or urinary frequency Musculoskeletal Musculoskeletal: Denies arthralgias, back pain or myalgias Neurologic Neurologic: Denies headache(s) or paresthesias Endocrine Endocrinology: Denies cold intolerance or heat intolerance Hematologic/Lymphatic Hematologic/Lymphatic: Reports systems reviewed and no addt'l complaints, except as documented EXAM Physical Exam Const Vital Signs: 06/19/24 09:02 06/19/24 10:20 06/19/24 11:02 Temperature 97.8 F Temperature Source Oral Pulse Rate 99 72 Pulse Rate [Lying] 83 Pulse Rate [Sitting (for 1 minute prior to obtaining)] 87 Pulse Rate [Standing (for 1 minute prior to obtaining)] 92 Respiratory Rate 16 18 Blood Pressure 124/80 H 101/65 Blood Pressure [Lying] 91/68 Blood Pressure [Sitting (for 1 minute prior to obtaining)] 83/69 L Blood Pressure [Standing (for 1 minute prior to obtaining)] 75/62 L Blood Pressure Mean 94 77 Blood Pressure Mean [Lying] 75 Blood Pressure Mean [Sitting (for 1 minute prior to obtaining)] 73 Blood Pressure Mean [Standing (for 1 minute prior to obtaining)] 66 Pulse Ox 100 94 Oxygen Delivery Method Room Air 06/19/24 13:00 06/19/24 13:44 Temperature Temperature Source Pulse Rate 75 Pulse Rate [Lying] 75 Pulse Rate [Sitting (for 1 minute prior to obtaining)] 80 Pulse Rate [Standing (for 1 minute prior to obtaining)] Respiratory Rate 15 Blood Pressure 102/64 Blood Pressure [Lying] 97/72 Blood Pressure [Sitting (for 1 minute prior to obtaining)] 110/66 Blood Pressure [Standing (for 1 minute prior to obtaining)] Blood Pressure Mean 76 Blood Pressure Mean [Lying] 80 Blood Pressure Mean [Sitting (for 1 minute prior to obtaining)] 80 Blood Pressure Mean [Standing (for 1 minute prior to obtaining)] Pulse Ox 98 Oxygen Delivery Method Positive well nourished, well developed and unkempt General Appearance ED: unkempt, well developed and NAD; Negative for cyanotic, diaphoretic or pallor HEENT Reports moist mucous membranes HEENT Narrative: Head is atraumatic normocephalic. Ears normal. Nares patent. Posterior pharynx normal. Tobacco odor to his breath. Eyes PERRL and EOMs intact bilaterally General Eye ED: Negative for pale conjunctiva or scleral icterus Neck no lymphadenopathy, supple and no JVD Chest Wall inspection of chest normal and palpation of chest normal Resp normal respiratory effort and clear to auscultation bilaterally GI normal to inspection, nondistended, normoactive bowel sounds, non-tender, non-distended and no masses; Negative for hepatosplenomegaly GI Narrative: Patient has blood noted on his buttocks. There is no fissures, fistulas or hemorrhoids noted. Anoscopy was performed. Back/Spine no CVA tenderness Extremity normal to inspection General Extremety ED: Negative for edema or tenderness General Extremity: Negative for edema Neuro oriented x3 and CN's II-XII intact bilaterally Psych Appearance: unkempt Skin no rashes or lesions noted and No skin turgor normal General Skin Exam: Negative for jaundice or pallor MDM MDM MDM Narrative Medical decision making narrative: Lower GI bleed with bright red blood differential would include hemorrhoids, diverticulosis, exacerbation of ulcerative colitis especially since patient is noncompliant. Patient did not informed that he had ulcerative colitis. This was made apparent to me after anoscopy and anoscopic results. Anoscopy patient tolerated procedure. There is external hemorrhoids noted. There is no active bleeding. Patient has bloody mucoid diarrhea noted above the scope. There is some inflammation of the rectal/anal mucosa. This would be suggestive that patient has exacerbation of ulcer colitis. Since patient has no abdominal findings imaging was not ordered initially. Will obtain blood work. If patient has significant white count we will reexamine and consider advanced imaging. History & Record Review Additional record(s) reviewed:: Prior ED visit and Prior labs Lab Data Attestation: I reviewed the patient's lab results. Lab results narrative: CBC is remarkable for mild anemia with normal indices. There is no shift on the differential. Electrolyte panel reveals mild hyponatremia and hypokalemia. BUN to creatinine ratio is normal. Liver enzymes are normal. Labs: Laboratory Results - last 24 hr 06/19/24 09:35 WBC 7.3 RBC 4.46 L Hgb 12.4 L Hct 37.9 L MCV 85.0 MCH 27.8 MCHC 32.7 RDW Std Deviation 39.9 RDW Coeff of Janice 12.8 Plt Count 292 MPV 8.4 Immature Gran % (Auto) 1.400 H Neut % (Auto) 68.3 Lymph % (Auto) 18.9 L [place] % (Auto) 7.0 Eos % (Auto) 4.0 Baso % (Auto) 0.4 Absolute Neuts (auto) 5.0 Absolute Lymphs (auto) 1.37 Nucleated RBC % 0 Differential Comment Sodium 133 L Potassium 3.3 L Chloride 95 L Carbon Dioxide 28.0 Anion Gap 10 BUN 12 Creatinine 1.08 Estim Creat Clear Calc 62.92 Est GFR (MDRD) Af Amer 86 Est GFR (MDRD) Non-Af 71 BUN/Creatinine Ratio 11.1 Glucose 122 H Lactic Acid 1.9 Calcium 8.6 Total Bilirubin 0.50 AST 16 ALT 14 L Alkaline Phosphatase 74 Total Protein 6.8 Albumin 1.9 L Globulin 4.9 H Albumin/Globulin Ratio 0.4 L Treatment and Re-Evaluation :: Orthostatic vital signs were markedly abnormal. 1 L of normal saline was ordered. He also was ordered Solu-Medrol, ciprofloxacin and metronidazole IV push and IV piggyback respectively. Comments:: Nurse was unable to complete orders because patient is shooting his pain. Will contact Dr. Penny's office for emergent follow-up. Will place patient on ciprofloxacin, metronidazole and steroids. She Discharge Plan Triage Chief Complaint: GI Bleed ED Provider: Abran Ochoa Dx/Rx/DC Orders Clinical Impression: Exacerbation of ulcerative colitis with rectal bleeding, Orthostatic hypotension, Acute dehydration, Hyperglycemia Instructions: ED Ulcerative Colitis Prescriptions: New prednisone 10 mg tablet 10 mg PO DAILY Qty: 48 0RF Rx Instructions: 6 po qd x 3 days, 4 po qd x 3 days, 2 po qd x 3 days, 1 po qd x 3 days metronidazole 500 mg tablet 500 mg PO Q8H Qty: 21 0RF ciprofloxacin HCl 500 mg tablet 500 mg PO BID Qty: 14 0RF No Action baclofen 10 mg tablet 10 mg PO TID Patient Comments: take 1 tablet by mouth three times a day etodolac 400 mg tablet 400 mg PO BID Patient Comments: take 1 tablet by mouth twice a day rosuvastatin 20 mg tablet 20 mg PO QHS Patient Comments: take 1 tablet by mouth nightly Pentasa 500 mg capsule, extended release 500 mg PO BID Patient Comments: take 1 capsule by mouth twice a day prednisone 10 mg tablet 10 mg PO DAILY Qty: 30 0RF Rx Instructions: Take 4 tablets x 3 days, 3 tablets x 3 days, 2 tablets x 3 days, 1 tablet x 3 days levofloxacin 750 mg tablet 750 mg PO DAILY Qty: 7 0RF albuterol sulfate 90 mcg/actuation HFA aerosol inhaler 1 inh inhalation Q6H PRN (Reason: shortness of breath or wheezing) Qty: 8.5 1RF triamcinolone acetonide 0.5 % cream TOPICAL BID diphenoxylate-atropine 2.5-0.025 mg tablet 1 tab PO 4X/DAY simvastatin 20 mg tablet 20 mg PO QHS pregabalin 150 mg capsule 150 mg PO BID Primary Care Provider: Reji Levin Referrals: Reji Levin MD [Primary Care Provider] - Friend,DO Guicho [Med Staff - Active Staff] - As soon as possible Print Language: Austrian Disposition Disposition: Home, Self Care
[2024-06-19 09:45] LABS: Absolute Lymphocyte Count 1.37 X10^3/uL (0.83-4.51); Basophil# 0.03 X10^3/uL; Basophil% 0.4 % (0-1); Eosinophil# 0.29 X10^3/uL; Hematocrit 37.9 % (40-54); Hemoglobin 12.4 g/dL (13.0-16.5); Lymphocyte # 1.37 X10^3/ul (0.83-4.51); Lymphocyte % 18.9 % (19-41); Mean Corp Hgb Conc 32.7 g/dL (32-36); Mean Corpuscular Hgb 27.8 pg (27.0-32.0); Mean Platelet Vol. 8.4 fl (6.2-12.0); Monocyte# 0.51 X10^3/uL; NRBC Flagged by Analyzer 0 % (0-5); Neutrophil # 4.96 X10^3/uL (2.7-7.7); Neutrophil % 68.3 % (47-70); POSITIVE MORPHOLOGY YES; Platelet Count 292 K/mm3 (150-450); RBC Distribution Width CV 12.8 % (11.6-14.6); RBC Distribution Width SD 39.9 fl (35.1-43.9); Red Blood Count 4.46 M/mm3 (4.6-6.2); White Blood Count 7.3 K/mm3 (4.4-11.0)
[2024-06-19 09:47] LABS: Differential Indicated SCAN CRITERIA MET
[2024-06-19 10:00] LABS: ALB/GLOB Ratio 0.4 RATIO (0.9-2.4); AST(SGOT) 16 U/L (15-37); Alanine Aminotransfer ALT/SGPT 14 U/L (16-61); Albumin, Serum 1.9 g/dL (3.2-5.0); Alkaline Phosphatase 74 U/L (45-117); Anion Gap 10 (5-15); BUN 12 mg/dL (7-18); BUN/Creat Ratio 11.1 RATIO (10-20); Calcium,Total 8.6 mg/dL (8.5-10.1); Chloride 95 mmol/L (98-107); Creatinine, Serum 1.08 mg/dL (0.70-1.30); EST Glomerular Filtration Rate 71 mL/min (>60); Est Glom Filt Rate - Afr Amer 86 mL/min (>60); Estimated Creatinine Clearance 62.92 ml/min; Globulin 4.9 g/dL (2.2-4.2); Glucose 122 mg/dL (74-106); Potassium 3.3 mmol/L (3.5-5.1); Protein, Total 6.8 g/dL (6.4-8.2); Sodium Level 133 mmol/L (136-145)
[2024-06-19 10:20] LABS: Lactic Acid 1.9 mmol/L (0.4-1.9)
[2024-06-19] MEDS: 0.9% Normal Saline (1000mL) 1,000 ML 1000 ML IV (10:30)
[2024-06-19] MEDS: Ciprofloxacin 400 MG/200 ML BAG 200 MG IV ×2 (10:57→21:12)
[2024-06-19] MEDS: MethylPREDNISolone 125 MG/2 ML Vial IV (13:42)
--- NOTE | 2024-06-19 14:16 | ED.RN ---
this rn goes in to attempt to discharge patient. pt tells this rn that he feels too weak and does not believe he can go home. Dr. Ochoa notified
--- NOTE | 2024-06-19 15:19 | PCM.HP.STD ---
HPI - General General Date of Admission: 06/19/24 Date of Service: 06/19/24 Chief Complaint: Blood per rectum HPI Narrative NISHA MARTINS, is a 74 M with possible colitis history who presented to [facility] ED 06/19/2024 due to 2 to 3 weeks of rectal bleeding. He reportedly was having multiple episodes a day of bloody stool and given its lack of improvement he presented to the ED. In the ED he had multiple episodes of bloody stool and the hemoglobin was 12.4, similar to previous, given his continued bloody stools as well and also was orthostatic positive and was dizzy on standing he was advised patient be admitted for further workup and management which she was agreeable. Patient evaluated at bedside and reports for the past several weeks he has had 8-10 episodes a day of moderately bloody bowel movements, he is a poor historian and did endorse a history of ulcerative colitis to the ED physician but told me he was unsure but had been on prednisone and medications for colitis but said he was not actively taking these at this time. He is unsure if he is ever seen a GI doctor before. Patient does report he has been having very poor p.o. intake due to having bowel movements after he eats. Gets a little bit of abdominal cramping before he has a bowel movement but no significant abdominal pain and it goes away after that. Only other complaint is that he has a rash on his shins which has been present for a year. He does not have any measured fevers at home. Denies recent alcohol, tobacco, or drug use. [facility] Medical History (Updated 06/19/24 @ 15:[address] Angelia Pollock MD) Alcohol abuse Arthritis Diverticulitis Former smoker High cholesterol Ulcerative colitis Home Medications ?Medication ?Instructions ?Recorded ?Last Taken ?Type baclofen 10 mg tablet 10 mg PO TID pain 02/25/21 02/25/21 07:00 History etodolac 400 mg tablet 400 mg PO BID inflammation 02/25/21 06/18/24 History mesalamine 500 mg capsule,extended 500 mg PO BID pain/inflammation 02/25/21 06/18/24 History release (Pentasa) albuterol sulfate 90 mcg/actuation 1 inh inhalation Q6H PRN shortness 02/26/21 Unknown Rx aerosol inhaler of breath or wheezing #8.5 grams ciprofloxacin HCl 500 mg tablet 500 mg PO BID #14 TABLETS 06/19/24 Unknown Rx diphenoxylate-atropine 2.5 1 tab PO 4X/DAY 06/19/24 06/19/24 History mg-0.025 mg tablet metronidazole 500 mg tablet 500 mg PO Q8H #21 tabs 06/19/24 Unknown Rx prednisone 10 mg tablet 10 mg PO DAILY #48 TABLETS 06/19/24 Unknown Rx pregabalin 150 mg capsule 150 mg PO BID 06/19/24 06/18/24 History simvastatin 20 mg tablet 20 mg PO QHS 06/19/24 06/18/24 History triamcinolone acetonide 0.5 % 1 applic topical BID 06/19/24 Unknown History topical cream Allergy/AdvReac Type Severity Reaction Status Date / Time ibuprofen AdvReac Upset Verified 06/19/24 09:02 Stomach Family History Mother COPD (chronic obstructive pulmonary disease) Father Myocardial infarction Social History Smoking Status: Former smoker alcohol intake: current alcohol intake frequency: 3 or more drinks per day Alcohol type: beer details: Patient states that he drinks a 12 pack/day of 12 ounce beers substance use type: does not use ROS ROS Narrative General: Denies fever/chills HENT: Denies headache, denies stuffy nose, denies sore throat EYES: Denies changes in vision Resp: Denies cough, denies shortness of breath Cardiac: Denies chest pain GI: Gets a little abdominal cramping before episodes of bowel movements but otherwise no abdominal pain, multiple episodes of bloody bowel movements a day which she feels are a moderate amount of blood : Denies changes in urination Extremity: Denies swelling MSK: Some generalized weakness and lightheaded upon standing Neuro: Denies any numbness/tingling Heme: Denies any other bleeding or bruising Skin: Does have some rashes on shins Psychiatric: No complaints voiced Vital Signs Vital Signs Vital Signs: 06/19/24 09:02 06/19/24 10:20 06/19/24 11:02 Temperature 97.8 F Temperature Source Oral Pulse Rate 99 72 Pulse Rate [Lying] 83 Pulse Rate [Sitting (for 1 minute prior to obtaining)] 87 Pulse Rate [Standing (for 1 minute prior to obtaining)] 92 Respiratory Rate 16 18 Blood Pressure 124/80 H 101/65 Blood Pressure [Lying] 91/68 Blood Pressure [Sitting (for 1 minute prior to obtaining)] 83/69 L Blood Pressure [Standing (for 1 minute prior to obtaining)] 75/62 L Blood Pressure Mean 94 77 Blood Pressure Mean [Lying] 75 Blood Pressure Mean [Sitting (for 1 minute prior to obtaining)] 73 Blood Pressure Mean [Standing (for 1 minute prior to obtaining)] 66 Pulse Ox 100 94 Oxygen Delivery Method Room Air 06/19/24 13:00 06/19/24 13:44 06/19/24 14:28 Temperature 98 F Temperature Source Pulse Rate 75 75 Pulse Rate [Lying] 75 Pulse Rate [Sitting (for 1 minute prior to obtaining)] 80 Pulse Rate [Standing (for 1 minute prior to obtaining)] Respiratory Rate 15 15 Blood Pressure 102/64 102/64 Blood Pressure [Lying] 97/72 Blood Pressure [Sitting (for 1 minute prior to obtaining)] 110/66 Blood Pressure [Standing (for 1 minute prior to obtaining)] Blood Pressure Mean 76 76 Blood Pressure Mean [Lying] 80 Blood Pressure Mean [Sitting (for 1 minute prior to obtaining)] 80 Blood Pressure Mean [Standing (for 1 minute prior to obtaining)] Pulse Ox 98 98 Oxygen Delivery Method Weight Weight: 73.028 kg Body Mass Index (BMI) 22.4 Physical Exam Narrative General: Alert, oriented, no apparent distress HEENT: Atraumatic, normocephalic, poor dentition Eyes: Anicteric, normal conjunctiva, extraocular movements grossly intact Neck: Supple Respiratory: Clear to auscultation bilaterally, normal respiratory effort Cardiovascular: Regular rate and rhythm GI: Soft, nontender, nondistended, no rebound, guarding, rigidity Extremities: No edema Musculoskeletal: Moving all extremities Neuro: No overt focal neurological deficits Skin: Has some various lesions in various stages of healing on bilateral lower extremities right greater than left, nothing that appears overtly infected Psych: Cooperative Results Lab / Micro Data 06/19/24 09:35 12 09:35 Labs: Laboratory Results - last 24 hr 06/19/24 09:35: WBC 7.3, RBC 4.46 L, Hgb 12.4 L, Hct 37.9 L, MCV 85.0, MCH 27.8, MCHC 32.7, RDW Std Deviation 39.9, RDW Coeff of Janice 12.8, Plt Count 292, MPV 8.4, Immature Gran % (Auto) 1.400 H, Neut % (Auto) 68.3, Lymph % (Auto) 18.9 L, [place] % (Auto) 7.0, Eos % (Auto) 4.0, Baso % (Auto) 0.4, Absolute Neuts (auto) 5.0, Absolute Lymphs (auto) 1.37, Nucleated RBC % 0, Differential Comment , Sodium 133 L, Potassium 3.3 L, Chloride 95 L, Carbon Dioxide 28.0, Anion Gap 10, BUN 12, Creatinine 1.08, Estim Creat Clear Calc 62.92, Est GFR (MDRD) Af Amer 86, Est GFR (MDRD) Non-Af 71, BUN/Creatinine Ratio 11.1, Glucose 122 H, Lactic Acid 1.9, Calcium 8.6, Total Bilirubin 0.50, AST 16, ALT 14 L, Alkaline Phosphatase 74, Total Protein 6.8, Albumin 1.9 L, Globulin 4.9 H, Albumin/Globulin Ratio 0.4 L Assessment & Plan Assessment/Plan (1) Blood in stool: PLAN: Plan #Blood in stool, ?UC flare -Patient ultimately endorsed a history of ulcerative colitis to ED physician but seems to have poor health literacy and was then saying he was unsure if that is the type of colitis he had before however on his medication list there is mesalamine and prednisone suspect that there is an underlying IBD component -Abdomen benign, do not think he needs CT imaging but will obtain plain film to assess for any significant colonic dilation -Will obtain ESR and CRP -Also obtain stool studies -Fecal occult not obtained given patient's obvious and jarrell blood -GI consult -Will start light diet and advance as tolerated -IV fluids as patient appears dehydrated and has frequent diarrhea with poor p.o. intake -Given his multiple bloody bowel movements and drops in blood pressure while standing which were symptomatic will trend H&H and type and screen -At time of exam patient normotensive and not having any lightheadedness or other similar symptoms so do not think he needs urgently transfused -Patient given a dose of IV steroids in the ED, will continue Methylpred IV -Will continue patient's mesalamine -Given pts overall unclear diagnosis (UC vs Crohn's vs ??) and abx started in ED will continue at this time, can deescalate if/when appropriate #Rash on shins -Continue topical steroid #Hypokalemia -Replace -Repeat in the AM #DVT ppx: SCDs Angelia Pollock MD Time spent in the patient's overall evaluation, decision-making process, review of diagnostic data, adjustment of management, discussion with other providers, nursing and ancillary staff involved in patient's care documentation, 58 Minutes Charges/Coding Visit Charges Inpatient E&M: 79037 Init Hosp L2
--- NOTE | 2024-06-19 16:35 | RAD_ITS ---
STUDY: X-RAY - ABDOMEN/PELVIS REASON FOR EXAM: Male, 74 years old. assess for colonic dilation TECHNIQUE: Frontal views COMPARISON: None. FINDINGS: Slightly distended small bowel loops may be related to an ileus. There is no demonstrated free abdominal air. The visualized liver, spleen and kidneys are grossly normal in size and morphology. Normal soft tissue structures. Degenerative vertebral changes. RAD/Abdomen Single View (Portable) IMPRESSION: Slightly distended small bowel loops may be related to an ileus. Electronically Signed: Wilson Herrera DO at 17:41 EST ,
[2024-06-19 16:41] LABS: Erythrocyte Sedimentation Rate 57 mm/hr (0-20)
[2024-06-19 16:45] LABS: Magnesium 1.8 mg/dL (1.6-2.6)
--- NOTE | 2024-06-19 18:31 | EX.PCM.CON.G ---
HPI Consult Data Date of Consult: 06/20/24 HPI Narrative Reason for Consultation: Lower GI bleed HPI Narrative: NISHA MARTINS, is a 74 M with possible colitis history who presented to [facility] ED 06/19/2024 due to 2 to 3 weeks of rectal bleeding. He reportedly was having multiple episodes a day of bloody stool and given its lack of improvement he presented to the ED. In the ED he had multiple episodes of bloody stool and the hemoglobin was 12.4, similar to previous, given his continued bloody stools as well and also was orthostatic positive and was dizzy on standing he was advised patient be admitted for further workup and management which she was agreeable. Patient evaluated at bedside and reports for the past several weeks he has had 8-10 episodes a day of moderately bloody bowel movements, he is a poor historian and did endorse a history of ulcerative colitis to the ED physician but told me he was unsure but had been on prednisone and medications for colitis but said he was not actively taking these at this time. He is unsure if he is ever seen a GI doctor before. Patient does report he has been having very poor p.o. intake due to having bowel movements after he eats. Gets a little bit of abdominal cramping before he has a bowel movement but no significant abdominal pain and it goes away after that. Only other complaint is that he has a rash on his shins which has been present for a year. He does not have any measured fevers at home. Denies recent alcohol, tobacco, or drug use. [facility] Medical History Irritable bowel Restless legs Diabetes GERD (gastroesophageal reflux disease) GI bleed Ulcerative colitis Alcohol abuse Arthritis Former smoker High cholesterol Diverticulitis Home Medications ?Medication ?Instructions ?Recorded ?Last Taken ?Type baclofen 10 mg tablet 10 mg PO TID pain 02/25/21 02/25/21 07:00 History etodolac 400 mg tablet 400 mg PO BID inflammation 02/25/21 06/18/24 History mesalamine 500 mg capsule,extended 500 mg PO BID pain/inflammation 02/25/21 06/18/24 History release (Pentasa) albuterol sulfate 90 mcg/actuation 1 inh inhalation Q6H PRN shortness 02/26/21 Unknown Rx aerosol inhaler of breath or wheezing #8.5 grams ciprofloxacin HCl 500 mg tablet 500 mg PO BID #14 TABLETS 06/19/24 Unknown Rx diphenoxylate-atropine 2.5 1 tab PO 4X/DAY 06/19/24 06/19/24 History mg-0.025 mg tablet metronidazole 500 mg tablet 500 mg PO Q8H #21 tabs 06/19/24 Unknown Rx prednisone 10 mg tablet 10 mg PO DAILY #48 TABLETS 06/19/24 Unknown Rx pregabalin 150 mg capsule 150 mg PO BID 06/19/24 06/18/24 History simvastatin 20 mg tablet 20 mg PO QHS 06/19/24 06/18/24 History triamcinolone acetonide 0.5 % 1 applic topical BID 06/19/24 Unknown History topical cream Allergy/AdvReac Type Severity Reaction Status Date / Time ibuprofen AdvReac Upset Verified 06/19/24 09:02 Stomach Family History Mother COPD (chronic obstructive pulmonary disease) Father Myocardial infarction Social History Smoking Status: Former smoker alcohol intake: current alcohol intake frequency: 3 or more drinks per day Alcohol type: beer details: Patient states that he drinks a 12 pack/day of 12 ounce beers substance use type: does not use ROS ROS Narrative General: Denies fever/chills HENT: Denies headache, denies stuffy nose, denies sore throat EYES: Denies changes in vision Resp: Denies cough, denies shortness of breath Cardiac: Denies chest pain GI: Gets a little abdominal cramping before episodes of bowel movements but otherwise no abdominal pain, multiple episodes of bloody bowel movements a day which she feels are a moderate amount of blood : Denies changes in urination Extremity: Denies swelling MSK: Some generalized weakness and lightheaded upon standing Neuro: Denies any numbness/tingling Heme: Denies any other bleeding or bruising Skin: Does have some rashes on shins Psychiatric: No complaints voiced Physical Exam Narrative Seen and examined. Patient states he is having bloody diarrhea for about 1 month. He states large-volume blood mixed loose bowel movement, 8-10 episodes per day. Denies abdominal pain. Denies rectal pain or tenesmus. In patient's room, bedpan had greenish loose stool. Patient has diagnosis of ulcerative colitis and diverticulitis in the past Physical exam General: Alert, Oriented x3, Cooperative. BMI 23.0 kg/m? HEENT: Atraumatic, PERRLA, EOMI, Normocephalic Oral: Oral mucosa dry. No Gingival or Mucosal Lesions/ Ulcerations Neck: Supple, No JVD, Negative Carotid Bruits Chest wall/Lungs: Air entry diminished in bilateral lung bases. No crepitation/rhonchi Cardiovascular: Sinus rhythm, Normal S1, Normal S2, No M/G/R Abdomen: Bowel Sounds Present, Soft, Non Tender, Non-Distended. No palpable mass scaphoid abdomen : No dysuria. No renal angle tenderness. No suprapubic tenderness. Extremities: No edema, Capillary Refill Less than 3 Seconds Skin: No rashes, No breakdown Musculoskeletal: No Tenderness to Palpation of Joints or Extremities. Moderate decreased bulk of muscle loss subcutaneous fat. Neurological: Cranial nerves II-XII grossly intact, DTR 2+/4. No acute focal neurological deficit. Psych/Mental Status: Flat affect. Medical Records Data Medical Nutrition Assessment Dietitian: Malnutrition Criteria Met Start: 06/20/24 12:57 Freq: Status: Active Protocol: Document 06/20/24 12:57 SLA (Rec: 06/20/24 12:57 SLA [id number]) Nutrition Malnutrition Evidence of Malnutrition Exists Yes Malnutrition (severe): Acute Illness/Injury Evidenced By Suboptimal Energy Intake ( Severe),Weight Loss (Severe) Clinical Problem Acute Disease or Injury Related Malnutrition Etiology related to issues w/ bloody diarrhea and suboptimal energy intake Signs/Symptoms as evidenced by pt w/ po intake meeting < 50% of est nutritional needs and 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 Status Active Problem Recommendation Dietitian Recommendations/Changes As medically able, rec SAVAGE to Transitional w/ goal of Cardiac (CHO controlled if gluc remains elevated) Will monitor for changes in pt nutritional status and make additional rec as indicated Lab / Micro Data 06/20/24 09:42 06/20/24 05:46 Labs: Laboratory Results - last 24 hr 06/19/24 19:15: WBC 5.1, RBC 3.90 L, Hgb 11.3 L, Hct 33.4 L, MCV 85.6, MCH 29.0, MCHC 33.8, RDW Std Deviation 39.6, RDW Coeff of Janice 12.8, Plt Count 237, MPV 8.5 06/19/24 22:45: WBC 5.5, RBC 3.60 L, Hgb 10.4 L, Hct 30.8 L, MCV 85.6, MCH 28.9, MCHC 33.8, RDW Std Deviation 39.8, RDW Coeff of Janice 12.8, Plt Count 249, MPV 8.8 06/20/24 02:50: WBC 4.7, RBC 3.47 L, Hgb 10.0 L, Hct 29.3 L, MCV 84.4, MCH 28.8, MCHC 34.1, RDW Std Deviation 38.1, RDW Coeff of Janice 12.6, Plt Count 214, MPV 8.7 06/20/24 05:46: WBC 4.4, RBC 3.32 L, Hgb 9.6 L, Hct 28.2 L, MCV 84.9, MCH 28.9, MCHC 34.0, RDW Std Deviation 38.5, RDW Coeff of Janice 12.6, Plt Count 234, MPV 8.8, Immature Gran % (Auto) 0.900, Neut % (Auto) 76.5 H, Lymph % (Auto) 17.4 L, [place] % (Auto) 5.0, Eos % (Auto) 0.0, Baso % (Auto) 0.2, Absolute Neuts (auto) 3.3, Absolute Lymphs (auto) 0.76 L, Nucleated RBC % 0, Retic Count 1.70 H, Immature Retic Fraction 13.60, Retic Hgb Equivalent 29.4 L, PT 15.6 H, INR 1.2, Sodium 132 L, Potassium 3.8, Chloride 103, Carbon Dioxide 25.0, Anion Gap 5, BUN 12, Creatinine 0.80, Estim Creat Clear Calc 84.42, Est GFR (MDRD) Af Amer 121, Est GFR (MDRD) Non-Af 100, BUN/Creatinine Ratio 14.9, Glucose 207 H, Calcium 7.6 L, Iron 41 L, TIBC 135 L, Iron Saturation 30.4, Ferritin 263, Total Bilirubin 0.30, AST 29, ALT 23, Alkaline Phosphatase 73, Total Protein 5.6 L, Albumin 1.6 L, Globulin 4.0, Albumin/Globulin Ratio 0.4 L, Folate 10.90 06/20/24 09:42: WBC 4.7, RBC 3.29 L, Hgb 9.6 L, Hct 27.8 L, MCV 84.5, MCH 29.2, MCHC 34.5, RDW Std Deviation 38.4, RDW Coeff of Janice 12.5, Plt Count 245, MPV 8.6 06/20/24 15:39: Vitamin B12 1566 H Micro: Microbiology 06/19/24 20:30 Stool Stool Lactoferrin - Final 06/19/24 20:30 Stool Enteric Bacteriology - Final 06/19/24 20:30 Stool C. difficile GDH Antigen & Toxins - Final 06/19/24 20:30 Stool Clostridioides difficile (PCR) - Final Assessment & Plan Assessment/Plan (1) Blood in stool: PLAN: Plan 74-year-old gentleman with history of ulcerative colitis and diverticulitis and diverticulosis came to ED with chief complaint of bloody diarrhea for last couple weeks. Hematochezia possible ulcerative colitis flare/infectious or ischemic colitis possible C. difficile colitis. Agree with stool for C. difficile came positive for A/B antigen but toxin is negative, PCR positive possible colonization but infection cannot be ruled out especially in the background of ulcerative colitis. Agree with on oral vancomycin. Continue Flagyl and IV Solu-Medrol. Plan is for colonoscopy tomorrow. -KUB shows distended small bowel loops suggestive of ileus. -CRP and ESR elevated. continue patient's mesalamine
[2024-06-19] MEDS: 0.9% Normal Saline (1000mL) 1,000 ML 150 ML IV (19:05)
[2024-06-19] MEDS: Potassium Chloride Oral Tablet 20 MEQ 40 MEQ PO (19:06)
[2024-06-19 19:30] LABS: Hematocrit 33.4 % (40-54); Hemoglobin 11.3 g/dL (13.0-16.5); Mean Corp Hgb Conc 33.8 g/dL (32-36); Mean Corpuscular Volume 85.6 fL (80-94); Mean Platelet Vol. 8.5 fl (6.2-12.0); Platelet Count 237 K/mm3 (150-450); RBC Distribution Width CV 12.8 % (11.6-14.6); RBC Distribution Width SD 39.6 fl (35.1-43.9); White Blood Count 5.1 K/mm3 (4.4-11.0)
[2024-06-19] MEDS: Bisacodyl 5 MG Tablet 20 MG PO (19:58)
[2024-06-19] MEDS: Polyethylene Glycol 3350 BOWEL PREP PO (19:59)
[2024-06-19] MEDS: MESALAMINE 400 MG CAPSULE.DR PO (21:11)
[2024-06-19] MEDS: Atorvastatin Calcium 10 MG Tablet PO (21:11)
[2024-06-19] MEDS: Triamcinolone 0.5% Cream 1 APPLIC TOPICAL (21:17)
[2024-06-19] MEDS: metroNIDAZOLE 500 MG/100 ML BAG 100 MG IV (22:14)
[2024-06-20] VITALS (12 sets, daily range): BP systolic 100–108; BP diastolic 48–89; PULSE 63–72; RESP 16–18; TEMP 36.1–37.1; O2SAT 92–97; BMI 22.9
[2024-06-20 00:18] LABS: Hematocrit 30.8 % (40-54); Hemoglobin 10.4 g/dL (13.0-16.5); Mean Corp Hgb Conc 33.8 g/dL (32-36); Mean Corpuscular Hgb 28.9 pg (27.0-32.0); Mean Corpuscular Volume 85.6 fL (80-94); Mean Platelet Vol. 8.8 fl (6.2-12.0); Platelet Count 249 K/mm3 (150-450); RBC Distribution Width CV 12.8 % (11.6-14.6); RBC Distribution Width SD 39.8 fl (35.1-43.9); White Blood Count 5.5 K/mm3 (4.4-11.0)
[2024-06-20 03:02] LABS: Hematocrit 29.3 % (40-54); Mean Corp Hgb Conc 34.1 g/dL (32-36); Mean Corpuscular Hgb 28.8 pg (27.0-32.0); Mean Corpuscular Volume 84.4 fL (80-94); Mean Platelet Vol. 8.7 fl (6.2-12.0); Platelet Count 214 K/mm3 (150-450); RBC Distribution Width CV 12.6 % (11.6-14.6); RBC Distribution Width SD 38.1 fl (35.1-43.9); Red Blood Count 3.47 M/mm3 (4.6-6.2); White Blood Count 4.7 K/mm3 (4.4-11.0)
[2024-06-20] MEDS: 0.9% Normal Saline (1000mL) 1,000 ML 150 ML IV (04:02)
[2024-06-20] MEDS: metroNIDAZOLE 500 MG/100 ML BAG 100 MG IV ×3 (06:11→22:31)
[2024-06-20 06:32] LABS: Absolute Lymphocyte Count 0.76 X10^3/uL (0.83-4.51); Absolute Neutrophil Count 3.3 X10^3/uL (2.0-7.7); Basophil# 0.01 X10^3/uL; Basophil% 0.2 % (0-1); Hematocrit 28.2 % (40-54); Hemoglobin 9.6 g/dL (13.0-16.5); Lymphocyte # 0.76 X10^3/ul (0.83-4.51); Lymphocyte % 17.4 % (19-41); Mean Corpuscular Hgb 28.9 pg (27.0-32.0); Mean Corpuscular Volume 84.9 fL (80-94); Mean Platelet Vol. 8.8 fl (6.2-12.0); Monocyte# 0.22 X10^3/uL; NRBC Flagged by Analyzer 0 % (0-5); Neutrophil # 3.34 X10^3/uL (2.7-7.7); Neutrophil % 76.5 % (47-70); POSITIVE MORPHOLOGY YES; Platelet Count 234 K/mm3 (150-450); RBC Distribution Width CV 12.6 % (11.6-14.6); RBC Distribution Width SD 38.5 fl (35.1-43.9); Red Blood Count 3.32 M/mm3 (4.6-6.2); White Blood Count 4.4 K/mm3 (4.4-11.0)
[2024-06-20 06:39] LABS: International Normalized Ratio 1.2; Prothrombin Time (Protime)PT. 15.6 SECONDS (11.7-14.9)
[2024-06-20 06:53] LABS: ALB/GLOB Ratio 0.4 RATIO (0.9-2.4); AST(SGOT) 29 U/L (15-37); Alanine Aminotransfer ALT/SGPT 23 U/L (16-61); Albumin, Serum 1.6 g/dL (3.2-5.0); Alkaline Phosphatase 73 U/L (45-117); Anion Gap 5 (5-15); BUN 12 mg/dL (7-18); BUN/Creat Ratio 14.9 RATIO (10-20); Calcium,Total 7.6 mg/dL (8.5-10.1); Chloride 103 mmol/L (98-107); EST Glomerular Filtration Rate 100 mL/min (>60); Est Glom Filt Rate - Afr Amer 121 mL/min (>60); Estimated Creatinine Clearance 84.42 ml/min; Glucose 207 mg/dL (74-106); Potassium 3.8 mmol/L (3.5-5.1); Protein, Total 5.6 g/dL (6.4-8.2); Sodium Level 132 mmol/L (136-145)
[2024-06-20 07:21] LABS: Differential Indicated SCAN CRITERIA MET
[2024-06-20] MEDS: Triamcinolone 0.5% Cream 1 APPLIC TOPICAL ×2 (09:21→22:28)
--- NOTE | 2024-06-20 09:28 | PN.HOSP_ITS ---
Reason for Visit Reason for Visit: Diagnoses Melena (06/19/24) Objective Data Objective Data Vital Signs: Vital Signs Temp Pulse Resp BP Pulse Ox O2 Del Method 98.3 F 67 18 100/61 97 Room Air 06/20/24 09:10 06/20/24 09:10 06/20/24 09:10 06/20/24 09:10 06/20/24 09:10 06/20/24 09:10 Oxygen Delivery Method Room Air Weight: 160 lb Body Mass Index (BMI) 22.9 Intake & Output: Intake and Output for Last 24 Hours 06/18/24 06/19/24 06/20/24 23:59 23:59 23:59 Intake Total 1937.5 / 1937.5 812.5 / 812.5 Balance 1937.5 / 1937.5 812.5 / 812.5 Lab / Micro Data 06/20/24 09:42 06/20/24 05:46 Labs: Laboratory Results - last 24 hr 06/19/24 09:35: WBC 7.3, RBC 4.46 L, Hgb 12.4 L, Hct 37.9 L, MCV 85.0, MCH 27.8, MCHC 32.7, RDW Std Deviation 39.9, RDW Coeff of Janice 12.8, Plt Count 292, MPV 8.4, Immature Gran % (Auto) 1.400 H, Neut % (Auto) 68.3, Lymph % (Auto) 18.9 L, [place] % (Auto) 7.0, Eos % (Auto) 4.0, Baso % (Auto) 0.4, Absolute Neuts (auto) 5.0, Absolute Lymphs (auto) 1.37, Nucleated RBC % 0, Differential Comment , ESR 57 H, Sodium 133 L, Potassium 3.3 L, Chloride 95 L, Carbon Dioxide 28.0, Anion Gap 10, BUN 12, Creatinine 1.08, Estim Creat Clear Calc 62.92, Est GFR (MDRD) Af Amer 86, Est GFR (MDRD) Non-Af 71, BUN/Creatinine Ratio 11.1, Glucose 122 H, Lactic Acid 1.9, Calcium 8.6, Magnesium 1.8, Total Bilirubin 0.50, AST 16, ALT 14 L, Alkaline Phosphatase 74, C-React Prot Ext Range 115.00 H, Total Protein 6.8, Albumin 1.9 L, Globulin 4.9 H, Albumin/Globulin Ratio 0.4 L 06/19/24 16:12: Blood Type A POSITIVE, Antibody Screen NEGATIVE, Crossmatch See Detail 06/19/24 19:15: WBC 5.1, RBC 3.90 L, Hgb 11.3 L, Hct 33.4 L, MCV 85.6, MCH 29.0, MCHC 33.8, RDW Std Deviation 39.6, RDW Coeff of Janice 12.8, Plt Count 237, MPV 8.5 06/19/24 22:45: WBC 5.5, RBC 3.60 L, Hgb 10.4 L, Hct 30.8 L, MCV 85.6, MCH 28.9, MCHC 33.8, RDW Std Deviation 39.8, RDW Coeff of Janice 12.8, Plt Count 249, MPV 8.8 06/20/24 02:50: WBC 4.7, RBC 3.47 L, Hgb 10.0 L, Hct 29.3 L, MCV 84.4, MCH 28.8, MCHC 34.1, RDW Std Deviation 38.1, RDW Coeff of Janice 12.6, Plt Count 214, MPV 8.7 06/20/24 05:46: WBC 4.4, RBC 3.32 L, Hgb 9.6 L, Hct 28.2 L, MCV 84.9, MCH 28.9, MCHC 34.0, RDW Std Deviation 38.5, RDW Coeff of Janice 12.6, Plt Count 234, MPV 8.8, Immature Gran % (Auto) 0.900, Neut % (Auto) 76.5 H, Lymph % (Auto) 17.4 L, U[place]hur % (Auto) 5.0, Eos % (Auto) 0.0, Baso % (Auto) 0.2, Absolute Neuts (auto) 3.3, Absolute Lymphs (auto) 0.76 L, Nucleated RBC % 0, PT 15.6 H, INR 1.2, S odium 132 L, Potassium 3.8, Chloride 103, Carbon Dioxide 25.0, Anion Gap 5, BUN 12, Creatinine 0.80, Estim Creat Clear Calc 84.42, Est GFR (MDRD) Af Amer 121, Est GFR (MDRD) Non-Af 100, BUN/Creatinine Ratio 14.9, Glucose 207 H, Calcium 7.6 L, Total Bilirubin 0.30, AST 29, ALT 23, Alkaline Phosphatase 73, Total Protein 5.6 L, Albumin 1.6 L, Globulin 4.0, Albumin/Globulin Ratio 0.4 L Micro: Microbiology 06/19/24 20:30 Stool Stool Lactoferrin - Final 06/19/24 20:30 Stool Enteric Bacteriology - Final 06/19/24 20:30 Stool C. difficile GDH Antigen & Toxins - Final 06/19/24 20:30 Stool Clostridioides difficile (PCR) - Final Radiography Diagnostic Testing: Radiology Impression KUB X-Ray 06/19/24 16:35 IMPRESSION: Slightly distended small bowel loops may be related to an ileus. Electronically Signed: Wilson Herrera DO at 17:41 EST Reading Location ID and State: [address] [place] [address] Tel [phone], Service support , Physical Exam Narrative Seen and examined. Patient states he is having bloody diarrhea for about 1 month. He states large- volume blood mixed loose bowel movement, 8-10 episodes per day. Denies abdominal pain. Denies rectal pain or tenesmus. In patient's room, bedpan had greenish loose stool. Patient has diagnosis of ulcerative colitis and diverticulitis in the past Physical exam General: Alert, Oriented x3, Cooperative. BMI 23.0 kg/m? HEENT: Atraumatic, PERRLA, EOMI, Normocephalic Oral: Oral mucosa dry. No Gingival or Mucosal Lesions/ Ulcerations Neck: Supple, No JVD, Negative Carotid Bruits Chest wall/Lungs: Air entry diminished in bilateral lung bases. No crepitation/rhonchi Cardiovascular: Sinus rhythm, Normal S1, Normal S2, No M/G/R Abdomen: Bowel Sounds Present, Soft, Non Tender, Non-Distended. No palpable mass scaphoid abdomen : No dysuria. No renal angle tenderness. No suprapubic tenderness. Extremities: No edema, Capillary Refill Less than 3 Seconds Skin: No rashes, No breakdown Musculoskeletal: No Tenderness to Palpation of Joints or Extremities. Moderate decreased bulk of muscle loss subcutaneous fat. Neurological: Cranial nerves II-XII grossly intact, DTR 2+/4. No acute focal neurological deficit. Psych/Mental Status: Flat affect. Assessment & Plan Assessment/Plan (1) Blood in stool: PLAN: Plan 74-year-old gentleman with history of ulcerative colitis and diverticulitis and diverticulosis came to ED with chief complaint of bloody diarrhea for last couple weeks. 1. Hematochezia possible ulcerative colitis flare/infectious or ischemic colitis possible C. difficile colitis: Patient is being admitted on MedSurg floor. It is less likely to have diverticulitis without pain. Stool for C. difficile came positive for A/B antigen but toxin is negative, PCR positive possible colonization but infection cannot be ruled out especially in the background of ulcerative colitis. Therefore started on oral vancomycin. Continue Flagyl and IV Solu-Medrol. GI is consulted. No abdominal pain. Patient is going for EGD and colonoscopy. -KUB shows distended small bowel loops suggestive of ileus. -CRP and ESR elevated. continue patient's mesalamine 2. Acute blood loss anemia on chronic anemia: Patient baseline hemoglobin is 12.4. Might be hemoconcentrated but dropped to 9.6 today. Anemia workup ordered. 3. Rash on shins -Continue topical steroid 4. Hypokalemia -Replace to repeat potassium is 3.8. Magnesium 1.8. #DVT ppx: SCDs Microbiology Past 72 Hours 06/19/24 20:30 Stool Stool Lactoferrin - Final 06/19/24 20:30 Stool Enteric Bacteriology - Final 06/19/24 20:30 Stool C. difficile GDH Antigen & Toxins - Final 06/19/24 20:30 Stool Clostridioides difficile (PCR) - Final Laboratory Results 06/19/24 09:35: ESR 57 H, Magnesium 1.8, C-React Prot Ext Range 115.00 H 06/19/24 16:12: Blood Type A POSITIVE, Antibody Screen NEGATIVE, Crossmatch See Detail 06/19/24 19:15: WBC 5.1, RBC 3.90 L, Hgb 11.3 L, Hct 33.4 L, MCV 85.6, MCH 29.0, MCHC 33.8, RDW Std Deviation 39.6, RDW Coeff of Janice 12.8, Plt Count 237, MPV 8.5 06/19/24 22:45: WBC 5.5, RBC 3.60 L, Hgb 10.4 L, Hct 30.8 L, MCV 85.6, MCH 28.9, MCHC 33.8, RDW Std Deviation 39.8, RDW Coeff of Janice 12.8, Plt Count 249, MPV 8.8 06/20/24 02:50: WBC 4.7, RBC 3.47 L, Hgb 10.0 L, Hct 29.3 L, MCV 84.4, MCH 28.8, MCHC 34.1, RDW Std Deviation 38.1, RDW Coeff of Janice 12.6, Plt Count 214, MPV 8.7 06/20/24 05:46: WBC 4.4, RBC 3.32 L, Hgb 9.6 L, Hct 28.2 L, MCV 84.9, MCH 28.9, MCHC 34.0, RDW Std Deviation 38.5, RDW Coeff of Janice 12.6, Plt Count 234, MPV 8.8, Immature Gran % (Auto) 0.900, Neut % (Auto) 76.5 H, Lymph % (Auto) 17.4 L, Upshur % (Auto) 5.0, Eos % (Auto) 0.0, Baso % (Auto) 0.2, Absolute Neuts (auto) 3.3, Absolute Lymphs (auto) 0.76 L, Nucleated RBC % 0, PT 15.6 H, INR 1.2, Sodium 132 L, Potassium 3.8, Chloride 103, Carbon Dioxide 25.0, Anion Gap 5, BUN 12, Creatinine 0.80, Estim Creat Clear Calc 84.42, Est GFR (MDRD) Af Amer 121, Est GFR (MDRD) Non-Af 100, BUN/Creatinine Ratio 14.9, Glucose 207 H, C alcium 7.6 L, Total Bilirubin 0.30, AST 29, ALT 23, Alkaline Phosphatase 73, T otal Protein 5.6 L, Albumin 1.6 L, Globulin 4.0, Albumin/Globulin Ratio 0.4 L 06/20/24 09:42: WBC 4.7, RBC 3.29 L, Hgb 9.6 L, Hct 27.8 L, MCV 84.5, MCH 29.2, MCHC 34.5, RDW Std Deviation 38.4, RDW Coeff of Janice 12.5, Plt Count 245, MPV 8.6 Clinical Impression(s) from Imaging Studies KUB X-Ray 06/19/24 16:35 IMPRESSION: Slightly distended small bowel loops may be related to an ileus. Charges/Coding Visit Charges Inpatient E&M: 05593 Subs Hosp L2
[2024-06-20 09:52] LABS: Hematocrit 27.8 % (40-54); Hemoglobin 9.6 g/dL (13.0-16.5); Mean Corp Hgb Conc 34.5 g/dL (32-36); Mean Corpuscular Hgb 29.2 pg (27.0-32.0); Mean Corpuscular Volume 84.5 fL (80-94); Mean Platelet Vol. 8.6 fl (6.2-12.0); Platelet Count 245 K/mm3 (150-450); RBC Distribution Width CV 12.5 % (11.6-14.6); RBC Distribution Width SD 38.4 fl (35.1-43.9); Red Blood Count 3.29 M/mm3 (4.6-6.2); White Blood Count 4.7 K/mm3 (4.4-11.0)
--- NOTE | 2024-06-20 10:12 | CASEMGMT ---
SYDNI PRESTON Assessment: Face to Face with pt for initial transition planning/care coordination assessment. SYDNI PRESTON introduced self and role at [facility], pt voices understanding and consents to assessment. Pt is A&O x4 and answers all questions appropriately at this time. Pt lying in bed in no distress anxiously awaiting his procedure today. Care providers, pharmacy, and demographics verified/updated. Admitting Dx: bloody diarrhea Strata Score: 1 PCP:Poonam Specialists:Denies Preferred [facility]acy:[facility] Insurance: Brooke GALVIN Prescription Benefit: yes LNOK: Nunu Hunter, Living Arrangements: Pt lives with , 2 adult children and 1 great grandchild in a two story home with 2 steps to enter. Pt reports he is I in ADLs and denies concerns at home. Transportation: Pt drives self and denies concerns with transportation. DME:cane, walker that he occas uses HHC/SNF: Denies hx of Pt states no concerns with going home at time of dc. Pt denies smoking, states he drinks a 6 pack of alcohol on Sundays and denies any street or illegal drugs. Pt states no further concerns/needs. CM to follow. Advised pt to ask CM if any further question/concerns/needs arise, voices understanding. Pt Goal: Home Plan: Home Bonnie TROY CM
[2024-06-20] MEDS: Vancomycin 125 MG/5 ML Susp PO.SYRINGE PO ×2 (11:40→23:55)
[2024-06-20] MEDS: Sodium Ferric Gluconat/Sucrose 250 MG in 0.9% Normal Saline (250mL Bag) 250 ML 135 MG IV (15:11)
[2024-06-20 15:34] LABS: Platelet Count 236 K/mm3 (150-450); RET-HE 29.4 pg (30-35)
[2024-06-20 16:20] LABS: Ferritin 263 ng/mL (26-388); Iron 41 ug/dL (65-175); Iron Binding Capacity,Total 135 ug/dL (250-450); PERCENT IRON SATURATION 30.4 % (15.0-55.0)
[2024-06-20 16:27] LABS: Vitamin B12 1566 pg/mL (211-911)
--- NOTE | 2024-06-20 17:03 | CHAPLAIN ---
Type of Pastoral Visit _x__ Initial Visit ___ Follow-up Visit ___ On-call Visit ___ General Patient Visit ___ Spiritual Assessment ___ Family Conference ___ Bereavement ___ Rapid Response ___ Code Blue ___ Other (describe below) Pastoral Care Referral From _x__ Patient ___ Family ___ Nurse ___ Physician ___ Operations And Maintenance Technician ___ Christmas Tree Farm Worker ___ Other (describe below) Sacrament/Intervention _x__ Active listening ___ Anointing ___ Faith ___ Bereavement ___ Communion ___ Ely exploration ___ ___ Life review _x__ Prayer ___ Reconciliation ___ Sacrament of Sick _x__ Supportive presence ___ Wedding ___ Other (describe below) Pastoral Comments patient is welcoming and admits to being distressed at not being able to eat or drink until his procedure takes place; offer of support and listening ear; pt continues to explain his health situation but states that he has no other concerns or needs; pt states that he would like a prayer; pt is not a member of a ely community but says when I was younger I went to about all the denominations;
[2024-06-20] MEDS: Lactated Ringers 1,000 ML 150 ML IV ×2 (17:19→23:56)
--- NOTE | 2024-06-20 17:35 | COLBX_PTH ---
PATIENT: NISHA MARTINS LOC: MS3 U#:[id number] AGE/SX: 74/M [place] [facility] [place]: Dr. Karan Chen MD : 1950 BED: 1 DIS: 06/23/2024 SPEC #: [id number] RECD: 06/20/24 18:45 STATUS: KEN JENKINS #: [id number] IRA: 06/20/24 17:[address]: Guicho Penny DEPT: SURGICAL PATHOLOGY RECD BY: Kai Shearer ENTERED: 06/23/24 07:47 SP TYPE: COLON BX OTHR DR: MD Dr. Karan Cohen MD Dr. Prakash Chand, MD Dr. Paige Pierce, MD Tissues: A - COLON BIOPSY B - Transverse colon C - COLON BIOPSY Procedures: Surgery Specimen Level IV HEADER OPERATION: Colonoscopy PRE-OP DIAGNOSIS: Blood in stool TISSUE SUBMITTED: A- Right colon biopsy, B- Transverse colon biopsy, C- Left colon biopsy MICROSCOPIC DIAGNOSIS A. Right colon, biopsy: Chronic active colitis pattern of injury with minimal activity. See comment. B. Transverse colon, biopsy: Chronic active colitis pattern of injury with minimal activity. See comment. C. Left colon, biopsy: Chronic active colitis pattern of injury with minimal activity. See comment. 06/24/2024 COMMENT A,B,C. Sections show focal cryptitis and crypt abscesses. No significant glandular distortion is seen and no fissuring ulcers are noted. Transmural lymphoid aggregates are not identified. Clinical correlation is suggested. MICROSCOPIC DESCRIPTION Slides are reviewed. GROSS DESCRIPTION A. Received in fixative is one container labeled with the patient's name and designated Right side colon biopsy The specimen consists of multiple irregular fragments of light prieto soft tissue that in aggregate measure 1.0 x 0.5 x 0.1 cm. The specimen is totally submitted in one cassette. B. Received in fixative is one container labeled with the patient's name and designated Transverse colon biopsy. The specimen consists of multiple irregular fragments of light prieto soft tissue that in aggregate measure 1.0 x 0.6 x 0.1 cm. The specimen is totally submitted in one cassette. C. Received in fixative is one container labeled with the patient's name and designated Left colon biopsy. The specimen consists of multiple irregular fragments of light prieto soft tissue that in aggregate measure 1.5 x 0.3 x 0.1 cm. The specimen is totally submitted in one cassette. 06/23/2024 TC:2 CPT:76672k2
--- NOTE | 2024-06-20 17:56 | PRE.ANES_ITS ---
ASA Classification* ASA Classification ASA Classification: 3 Assessment & Plan Anesthesia* Anesthesia Assessment Anesthesia Assessment: Discussed sedation and/or anesthesia options, risks, benefits, and alternatives with patient/parents/legal guardian/POA. Questions invited. The patient/parents/legal guardian/POA seems to understand and agrees to proceed with anesthesia plan. Reviewed the physical assessment, medical history, allergy history and patient home medications list prior to surgery/procedure/anesthetic and documented any changes. Performed airway and anesthesia risk assessments. Anesthesia Type Anesthesia Type: MAC Anesthesia Focused Assessment* Temperature: 98.3 F Pulse Rate: 66 Blood Pressure: 105/62 Respiratory Rate: 18 Pulse Ox: 95 Airway Assessment Mouth opens: >3 cm Mallampati Score: II Focused Labs Anesthesia Preop lab: CBC WBC 4.7 K/mm3 (4.4-11.0) 06/20/24 09:42 RBC 3.29 M/mm3 (4.6-6.2) L 06/20/24 09:42 Hgb 9.6 g/dL (13.0-16.5) L 06/20/24 09:42 Hct 27.8 % (40-54) L 06/20/24 09:42 Plt Count 245 K/mm3 (150-450) 06/20/24 09:42 CHEMISTRY Potassium 3.8 mmol/L (3.5-5.1) 06/20/24 05:46 Sodium 132 mmol/L (136-145) L 06/20/24 05:46 Magnesium 1.8 mg/dL (1.6-2.6) 06/19/24 09:35 Phosphorus 2.9 mg/dL (2.5-4.9) 02/25/21 19:50 BUN 12 mg/dL (7-18) 06/20/24 05:46 Creatinine 0.80 mg/dL (0.70-1.30) 06/20/24 05:46 Glucose 207 mg/dL (74-106) H 06/20/24 05:46 COAG PT 15.6 SECONDS (11.7-14.9) H 06/20/24 05:46 Pre-Assessment Diagnosis/Proposed Procedure Planned Operative Procedure(s): Colonoscopy Anesthesia History Anesthesia History - emergency management specialist: Anesthesia History - emergency management specialist Hx Hospitalization Any Problems With Anesthesia No 06/20/24 04:37 Cholinesterase deficiency No 06/20/24 04:37 You/Your Family Experience No 06/20/24 04:37 fever (hyperthermia) with Relationship Recent Exposure to Contagious No 06/20/24 04:37 Disease Does patient have nerve No 06/20/24 04:37 stimulator Patient instructed to have No 06/20/24 04:37 device shut off --Does patient have Pacemaker No 06/20/24 04:38 or ICD? When Was Last Pacemaker Check QUESTION #4 FULL TEXT: You/Your Family Experience fever (hyperthermia) with Anesthesia Last Oral Intake Last Oral intake: Last Oral Intake NPO since 00:00 06/20/24 04:38 Meds taken in AM with sips of water? Meds patient instructed to take am of surgery PONV PONV - emergency management specialist: PONV - emergency management specialist Female HX of Motion Sickness HX of N/V After Surgery Non-Smoker Duration of Surgery greater than 60 minutes Number of Risk Factors PONV Score Height & Weight Height & Weight: Anesthesia: Height & Weight Height 5 ft 10 in 06/20/24 12:40 Weight: 72.575 kg 06/20/24 12:40 Body Mass Index (BMI) 22.9 06/20/24 04:38 Respiratory Assessment Respiratory Assessment - emergency management specialist: Respiratory Tract Infection Hx - emergency management specialist Hx Respiratory Tract Infection No 06/20/24 04:37 STOP Sleep Apnea STOP Sleep Apnea - emergency management specialist: STOP Sleep Apnea - emergency management specialist Hx Hypertension No 06/20/24 09:28 Hx Sleep Apnea No 06/19/24 18:47 CPAP BIPAP Do you snore loudly (louder No 06/19/24 18:47 than talking or can be heard Do you often feel tired/ No 06/19/24 18:47 fatigued/ sleepy during daytime? Has anyone observed you stop No 06/19/24 18:47 breathing during sleep? STOP Results Negative 06/19/24 18:47 QUESTION #5 FULL TEXT : Do you snore loudly (louder than talking or can be heard through closed doors)? 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 Specify any problems Hx of Preganancy in last 3 N/A 06/19/24 18:47 Months Nurse Filling Out Transfusion TWOLF 06/19/24 18:47 & Questions: Date: 06/19/24 06/19/24 18:47 Time: 18:48 06/19/24 18:47 Patient unable to answer at this time (ie. confused, unrespo /Reproduction History /Reproductive History - emergency management specialist: /Reproductive Hx- emergency management specialist Hx Now na 06/20/24 04:37 Gestational Age (in weeks): EDC: Hx Hx Para Hx Section SAB Active Medications Active Medications: Current Medications Generic Name Dose Route Start Last Admin Trade Name Freq PRN Reason Stop Dose Admin Acetaminophen 650 mg 06/19/24 18:40 Acetaminophen 325 Mg Tablet PO Q6H PRN PRN Pain 1-10 Or Fever >100.7 Albuterol Sulfate 2.5 mg 06/19/24 18:40 Albuterol 2.5 Mg/3 Ml Vial.Neb. INHALATION Q2H PRN PRN SOB &/OR WHEEZING Atorvastatin Calcium 10 mg 06/19/24 22:00 06/19/24 21:11 Atorvastatin Calcium 10 Mg Tablet PO 10 mg QHS KORINA Administration Metronidazole 500 mg in 100 mls @ 100 mls/hr 06/19/24 22:00 06/20/24 15:07 Flagyl IV Infused Q8 KORINA Infusion Sodium Chloride 500 mls @ 15 mls/hr 06/19/24 18:53 IV .[id number] PRN Saline Flush Sodium Chloride 500 mls @ 15 mls/hr 06/19/24 18:53 IV .[id number] PRN Additional IVPB Infusion Lactated Ringer's 1,000 mls @ 150 mls/hr 06/20/24 14:00 06/20/24 17:19 IV 06/21/24 03:19 150 mls/hr .[id number] [facility] Administration Protocol Melatonin 3 mg 06/19/24 18:40 Melatonin 3 Mg Tablet PO QHS PRN PRN INSOMNIA Mesalamine 400 mg 06/19/24 22:00 06/20/24 07:31 Mesalamine 400 Mg Capsule.Dr PO Not Given BID [facility] Methylprednisolone 20 mg 06/19/24 22:00 06/20/24 14:07 Methylprednisolone 40 Mg/Ml Vial IV 20 mg Q8 [facility] Administration Nutritional Formula (Lactose Free) 120 ml 06/19/24 19:30 06/20/24 15:27 Glucerna Shake 120 Ml Liquid PO Not Given TIDCM [facility] Ondansetron HCl 4 mg 06/19/24 18:40 Ondansetron 4 Mg/2 Ml Vial IV Q8H PRN PRN NAUSEA/VOMITING Oxycodone HCl 5 mg 06/19/24 18:40 Oxycodone 5 Mg Tablet PO Q4H PRN PRN Pain Score 4-10 Sodium Chloride 10 - 40 ml 06/19/24 18:53 0.9% Saline Lock 10 Ml Syringe IV UD PRN SALINE FLUSH Triamcinolone Acetonide 1 applic 06/19/24 22:00 06/20/24 09:21 Triamcinolone 0.5% Cream TOPICAL 1 applic BID [facility] Administration Protocol Vancomycin HCl 125 mg 06/20/24 12:00 06/20/24 17:30 Vancomycin 125 Mg/5 Ml Susp Po.Syringe PO Not Given Q6 KORINA PFSH Medical History Irritable bowel Restless legs Diabetes GERD (gastroesophageal reflux disease) GI bleed Ulcerative colitis Alcohol abuse Arthritis Former smoker High cholesterol Diverticulitis Home Medications ?Medication ?Instructions ?Recorded ?Last Taken ?Type baclofen 10 mg tablet 10 mg PO TID pain 02/25/21 02/25/21 07:00 History etodolac 400 mg tablet 400 mg PO BID inflammation 02/25/21 06/18/24 History mesalamine 500 mg capsule,extended 500 mg PO BID pain/inflammation 02/25/21 06/18/24 History release (Pentasa) albuterol sulfate 90 mcg/actuation 1 inh inhalation Q6H PRN shortness 02/26/21 Unknown Rx aerosol inhaler of breath or wheezing #8.5 grams ciprofloxacin HCl 500 mg tablet 500 mg PO BID #14 TABLETS 06/19/24 Unknown Rx diphenoxylate-atropine 2.5 1 tab PO 4X/DAY 06/19/24 06/19/24 History mg-0.025 mg tablet metronidazole 500 mg tablet 500 mg PO Q8H #21 tabs 06/19/24 Unknown Rx prednisone 10 mg tablet 10 mg PO DAILY #48 TABLETS 06/19/24 Unknown Rx pregabalin 150 mg capsule 150 mg PO BID 06/19/24 06/18/24 History simvastatin 20 mg tablet 20 mg PO QHS 06/19/24 06/18/24 History triamcinolone acetonide 0.5 % 1 applic topical BID 06/19/24 Unknown History topical cream Allergy/AdvReac Type Severity Reaction Status Date / Time ibuprofen AdvReac Upset Verified 06/19/24 09:02 Stomach Family History Mother COPD (chronic obstructive pulmonary disease) Father Myocardial infarction Social History Smoking Status: Former smoker alcohol intake: current alcohol intake frequency: 3 or more drinks per day Alcohol type: beer details: Patient states that he drinks a 12 pack/day of 12 ounce beers substance use type: does not use Review of Systems (Anesthesia) ROS Narrative System reviewed and no additional complaints, except as documented.
--- NOTE | 2024-06-20 18:36 | PCM.POST.ANE ---
Anesthesia: Postop Eval I Current Vital Signs Temperature: 98.7 F Pulse Rate: 70 Blood Pressure: 108/89 Respiratory Rate: 18 Pulse Ox: 96 Assessment Airway patent: Yes Spontaneous unlabored respirations: Yes nausea: No Vomiting: No Anesthesia Complication: No Fluid Hydration Crystalloid volume administer (ml): 200 Total IV fluid infused: 200 Progress Note Anesthesia document: Postop Eval 1 completed: Yes
--- NOTE | 2024-06-20 18:37 | PCM.POSTANE2 ---
Anesthesia Postop Eval I Sum Postop Eval Completion status Anesthesia document: Postop Eval 1 completed: Yes Anesthesia Postop Eval I Summary Anesthesia Postop Eval I Summary: Anesthesia Postop Eval I: Assessment Summary Airway patent Yes 06/20/24 18:36 [email or web address] Spontaneous unlabored Yes 06/20/24 18:36 [email or web address] respirations Mental status nausea No 06/20/24 18:36 [email or web address] Vomiting No 06/20/24 18:36 [email or web address] Anesthesia Postop Eval I: Fluid Summary Crystalloid volume administer 200 06/20/24 18:36 [email or web address] (ml) Colloids volume administered ( ml) Blood Product volume administered (ml) Total IV fluid infused 200 06/20/24 18:36 [email or web address] Anesthesia Postop Eval I: Summary Notes Anesthesia Complication No 06/20/24 18:36 [email or web address] Anesthesia Complication Comment: Post-operative progress note Anesthesia: Postop Eval II Evaluation Mental status: Awake Pain Level: 0 nausea: No Vomiting: No
--- NOTE | 2024-06-20 19:02 | OP.CCLET_ITS ---
06/20/2024 Reji Levin Re : Colonoscopy procedure for Vidal Hunter Dear Poonam This procedure was performed on Thursday, June 20, 2024. My impressions and recommendations are as follows: Impressions : - Severe (Hernandez Score 3) pancolitis ulcerative colitis, worsened since the last examination. Biopsied. Recommendations : - Return patient to hospital [facility] for ongoing care. - Advance diet as tolerated. - Continue present medications. - Await pathology results. - Repeat colonoscopy in 6 months to assess disease activity. My findings are described in the full procedure note, which is enclosed. If I can be of further assistance, please feel free to contact me at . Sincerely, Guicho Penny, 06/20/2024 7:00:43 PM This report has been signed electronically.
--- NOTE | 2024-06-20 19:02 | OP.COLON_ITS ---
Patient Name: Vidal Hunter Procedure Date: 06/20/2024 5:59 PM Date of : 1950 Age: 74 Procedure: Colonoscopy Indications: Hematochezia Providers: Guicho Penny DO Medicines: Monitored Anesthesia Care Patient Profile: This is a 74 year old male. Refer to note in patient chart for documentation of history and physical. Last Colonoscopy: within the past 3 years. Complications: No immediate complications. Procedure: Pre-Anesthesia Assessment: - Prior to the procedure, a History and Physical was performed, and patient medications and allergies were reviewed. The patient is competent. The risks and benefits of the procedure and the sedation options and risks were discussed with the patient. All questions were answered and informed consent was obtained. Patient identification and proposed procedure were verified by the physician in the pre-procedure area. Mental Status Examination: alert and oriented. Airway Examination: normal oropharyngeal airway and neck mobility. Respiratory Examination: clear to auscultation. CV Examination: normal. Prophylactic Antibiotics: The patient does not require prophylactic antibiotics. Prior Anticoagulants: The patient has taken no anticoagulant or antiplatelet agents except for NSAID medication. ASA Grade Assessment: II - A patient with mild systemic disease. After reviewing the risks and benefits, the patient was deemed in satisfactory condition to undergo the procedure. The anesthesia plan was to use monitored anesthesia care (MAC). Immediately prior to administration of medications, the patient was re-assessed for adequacy to receive sedatives. The heart rate, respiratory rate, oxygen saturations, blood pressure, adequacy of pulmonary ventilation, and response to care were monitored throughout the procedure. The physical status of the patient was re-assessed after the procedure. After I obtained informed consent, the scope was passed under direct vision. Throughout the procedure, the patient's blood pressure, pulse, and oxygen saturations were monitored continuously. The colonoscope was introduced through the anus and advanced to the cecum, identified by appendiceal orifice and ileocecal valve. The colonoscopy was performed without difficulty. The patient tolerated the procedure well. The ileocecal valve, appendiceal orifice, and rectum were photographed. Scope In: 6:12:15 PM Scope Withdrawal Time 0 hours 7 minutes 54 seconds Scope Out: 6:23:47 PM Total Procedure Duration Time 0 hours 11 minutes 32 seconds Findings: The perianal and digital rectal examinations were normal. Inflammation was found in a continuous and circumferential pattern from the anus to the cecum. This was graded as Hernandez Score 3 (severe, with spontaneous bleeding, ulcerations), and when compared to the previous examination, the findings are worsened. Biopsies were taken with a cold forceps for histology. Verification of patient identification for the specimen was done. Estimated blood loss was minimal. Impression: - Severe (Hernandez Score 3) pancolitis ulcerative colitis, worsened since the last examination. Biopsied. Recommendation: - Return patient to hospital [facility] for ongoing care. - Advance diet as tolerated. - Continue present medications. - Await pathology results. - Repeat colonoscopy in 6 months to assess disease activity. Procedure Code(s): --- Professional --- 82366, Colonoscopy, flexible; with biopsy, single or multiple CPT copyright 2021 [employer]. All rights reserved. The codes documented in this report are preliminary and upon athletic shoe designer review may be revised to meet current compliance requirements. Guicho Penny DO 06/20/2024 7:00:43 PM This report has been signed electronically. Number of Addenda: 0 Note Initiated On: 06/20/2024 5:59 PM
[2024-06-20] MEDS: Atorvastatin Calcium 10 MG Tablet PO (22:27)
[2024-06-20] MEDS: MESALAMINE 400 MG CAPSULE.DR PO (22:27)
[2024-06-20] MEDS: 0.9% Saline Lock 10 ML Syringe IV (22:38)
[2024-06-21 03:30] VITALS: BP 126/86; PULSE 76; RESP 16; TEMP 36.8; O2SAT 96
[2024-06-21] MEDS: Vancomycin 125 MG/5 ML Susp PO.SYRINGE PO ×3 (05:59→18:58)
[2024-06-21] MEDS: metroNIDAZOLE 500 MG/100 ML BAG 100 MG IV ×3 (06:00→22:21)
[2024-06-21 08:21] VITALS: BP 111/66; PULSE 59; RESP 16; TEMP 36.3; O2SAT 96
[2024-06-21] MEDS: MESALAMINE 400 MG CAPSULE.DR PO ×2 (08:51→22:21)
[2024-06-21] MEDS: Triamcinolone 0.5% Cream 1 APPLIC TOPICAL ×2 (08:51→22:20)
--- NOTE | 2024-06-21 13:03 | PCM.PN.HOSP ---
Reason for Visit Reason for Visit: Diagnoses Melena (06/19/24) Objective Data Objective Data Vital Signs: Vital Signs Temp Pulse Resp BP Pulse Ox O2 Del Method 97.3 F L 59 L 16 111/66 96 Room Air 06/21/24 08:21 06/21/24 08:21 06/21/24 08:21 06/21/24 08:21 06/21/24 08:21 06/21/24 08:23 Oxygen Delivery Method Room Air Weight: 160 lb Body Mass Index (BMI) 22.9 Intake & Output: Intake and Output for Last 24 Hours 06/19/24 06/20/24 06/21/24 23:59 23:59 23:59 Intake Total 1937.5 / 1937.5 3725.0 / 3725.0 1400 / 1400 Balance 1937.5 / 1937.5 3725.0 / 3725.0 1400 / 1400 Medical Nutrition Assessment Dietitian: Malnutrition Criteria Met Start: 06/20/24 12:57 Freq: Status: Active Protocol: Document 06/20/24 12:57 SLA (Rec: 06/20/24 12:57 SLA [email or web address]) Nutrition Malnutrition Evidence of Malnutrition Exists Yes Malnutrition (severe): Acute Illness/Injury Evidenced By Suboptimal Energy Intake ( Severe),Weight Loss (Severe) Clinical Problem Acute Disease or Injury Related Malnutrition Etiology related to issues w/ bloody diarrhea and suboptimal energy intake Signs/Symptoms as evidenced by pt w/ po intake meeting < 50% of est nutritional needs and 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 Problem Recommendation Dietitian Recommendations/Changes As medically able, rec SAVAGE to Transitional w/ goal of Cardiac (CHO controlled if gluc remains elevated) Will monitor for changes in pt nutritional status and make additional rec as indicated Lab / Micro Data 06/20/24 09:42 06/20/24 05:46 Labs: Laboratory Results - last 24 hr 06/20/24 05:46: Retic Count 1.70 H, Immature Retic Fraction 13.60, Retic Hgb Equivalent 29.4 L, Iron 41 L, TIBC 135 L, Iron Saturation 30.4, Ferritin 263, Folate 10.90 06/20/24 15:39: Vitamin B12 1566 H Micro: Microbiology 06/20/24 18:00 Stool Stool Lactoferrin - Final 06/19/24 20:30 Stool Stool Lactoferrin - Final 06/19/24 20:30 Stool Enteric Bacteriology - Final 06/19/24 20:30 Stool C. difficile GDH Antigen & Toxins - Final 06/19/24 20:30 Stool Clostridioides difficile (PCR) - Final Physical Exam Narrative Seen and examined. Patient stated he had 2 bloody bowel movements yesterday and 2 today. Frequency of diarrhea seems better. Patient states he is having bloody diarrhea for about 1 month. He states large-volume blood mixed loose bowel movement, 8-10 episodes per day. Denies abdominal pain. Denies rectal pain or tenesmus. Physical exam General: Alert, Oriented x3, Cooperative. BMI 23.0 kg/m? HEENT: Conjunctiva pale atraumatic, PERRLA, EOMI, Normocephalic Oral: Oral mucosa dry. No Gingival or Mucosal Lesions/ Ulcerations Neck: Supple, No JVD, Negative Carotid Bruits Chest wall/Lungs: Air entry diminished in bilateral lung bases. No crepitation/rhonchi Cardiovascular: Sinus rhythm, Normal S1, Normal S2, No M/G/R Abdomen: Bowel Sounds Present, Soft, Non Tender, Non-Distended. No palpable mass scaphoid abdomen : No dysuria. No renal angle tenderness. No suprapubic tenderness. Extremities: No edema, Capillary Refill Less than 3 Seconds Skin: No rashes, No breakdown Musculoskeletal: No Tenderness to Palpation of Joints or Extremities. Moderate decreased bulk of muscle loss subcutaneous fat. Neurological: Cranial nerves II-XII grossly intact, DTR 2+/4. No acute focal neurological deficit. Psych/Mental Status: Flat affect. Assessment & Plan Assessment/Plan (1) Blood in stool: PLAN: Plan 74-year-old gentleman with history of ulcerative colitis and diverticulitis and diverticulosis came to ED with chief complaint of bloody diarrhea for last couple weeks. 1. Hematochezia possible ulcerative colitis flare/infectious or ischemic colitis possible C. difficile colitis: Patient is being admitted on MedSurg floor. It is less likely to have diverticulitis without pain. Stool for C. difficile came positive for A/B antigen but toxin is negative, PCR positive possible colonization but infection cannot be ruled out especially in the background of ulcerative colitis. Therefore started on oral vancomycin. Continue Flagyl and IV Solu-Medrol. GI is consulted. No abdominal pain. Patient is going for EGD and colonoscopy. -KUB shows distended small bowel loops suggestive of ileus. -CRP and ESR elevated. continue patient's mesalamine 06/21: H&H 9.6/27%. Monitor CBC. Iron profile shows ferritin is normal and suggestive of anemia of chronic disease/inflammatory anemia. Colonoscopy 06/20/2024 Impressions : - Severe (Hernandez Score 3) pancolitis ulcerative colitis, worsened since the last examination. Biopsied. Recommendations : - Repeat colonoscopy in 6 months to assess disease activity. 2. Acute blood loss anemia on chronic anemia: Patient baseline hemoglobin is 12.4. Might be hemoconcentrated but dropped to 9.6 today. Anemia workup ordered. 06/21: As mentioned above. 3. Rash on shins -Continue topical steroid 4. Hypokalemia -Replace to repeat potassium is 3.8. Magnesium 1.8. #DVT ppx: SCDs Microbiology Past 72 Hours 06/19/24 20:30 Stool Stool Lactoferrin - Final 06/19/24 20:30 Stool Enteric Bacteriology - Final 06/19/24 20:30 Stool C. difficile GDH Antigen & Toxins - Final 06/19/24 20:30 Stool Clostridioides difficile (PCR) - Final Laboratory Results 06/19/24 09:35: ESR 57 H, Magnesium 1.8, C-React Prot Ext Range 115.00 H 06/19/24 16:12: Blood Type A POSITIVE, Antibody Screen NEGATIVE, Crossmatch See Detail 06/19/24 19:15: WBC 5.1, RBC 3.90 L, Hgb 11.3 L, Hct 33.4 L, MCV 85.6, MCH 29.0, MCHC 33.8, RDW Std Deviation 39.6, RDW Coeff of Janice 12.8, Plt Count 237, MPV 8.5 06/19/24 22:45: WBC 5.5, RBC 3.60 L, Hgb 10.4 L, Hct 30.8 L, MCV 85.6, MCH 28.9, MCHC 33.8, RDW Std Deviation 39.8, RDW Coeff of Janice 12.8, Plt Count 249, MPV 8.8 06/20/24 02:50: WBC 4.7, RBC 3.47 L, Hgb 10.0 L, Hct 29.3 L, MCV 84.4, MCH 28.8, MCHC 34.1, RDW Std Deviation 38.1, RDW Coeff of Janice 12.6, Plt Count 214, MPV 8.7 06/20/24 05:46: WBC 4.4, RBC 3.32 L, Hgb 9.6 L, Hct 28.2 L, MCV 84.9, MCH 28.9, MCHC 34.0, RDW Std Deviation 38.5, RDW Coeff of Janice 12.6, Plt Count 234, MPV 8.8, Immature Gran % (Auto) 0.900, Neut % (Auto) 76.5 H, Lymph % (Auto) 17.4 L, [place] % (Auto) 5.0, Eos % (Auto) 0.0, Baso % (Auto) 0.2, Absolute Neuts (auto) 3.3, Absolute Lymphs (auto) 0.76 L, Nucleated RBC % 0, PT 15.6 H, INR 1.2, Sodium 132 L, Potassium 3.8, Chloride 103, Carbon Dioxide 25.0, Anion Gap 5, BUN 12, Creatinine 0.80, Estim Creat Clear Calc 84.42, Est GFR (MDRD) Af Amer 121, Est GFR (MDRD) Non-Af 100, BUN/Creatinine Ratio 14.9, Glucose 207 H, Calcium 7.6 L, Total Bilirubin 0.30, AST 29, ALT 23, Alkaline Phosphatase 73, Total Protein 5.6 L, Albumin 1.6 L, Globulin 4.0, Albumin/Globulin Ratio 0.4 L 06/20/24 09:42: WBC 4.7, RBC 3.29 L, Hgb 9.6 L, Hct 27.8 L, MCV 84.5, MCH 29.2, MCHC 34.5, RDW Std Deviation 38.4, RDW Coeff of Janice 12.5, Plt Count 245, MPV 8.6 Clinical Impression(s) from Imaging Studies KUB X-Ray 06/19/24 16:35 IMPRESSION: Slightly distended small bowel loops may be related to an ileus. Charges/Coding Visit Charges Inpatient E&M: 85442 Subs Hosp L2
[2024-06-21] MEDS: Glucerna Shake 120 ML LIQUID PO ×2 (13:08→18:58)
[2024-06-21 13:38] LABS: Erythrocyte Sedimentation Rate 18 mm/hr (0-20)
[2024-06-21 13:57] LABS: Absolute Lymphocyte Count 0.71 X10^3/uL (0.83-4.51); Absolute Neutrophil Count 6.4 X10^3/uL (2.0-7.7); Basophil# 0.03 X10^3/uL; Basophil% 0.4 % (0-1); Hematocrit 30.2 % (40-54); Hemoglobin 9.8 g/dL (13.0-16.5); Lymphocyte # 0.71 X10^3/ul (0.83-4.51); Lymphocyte % 9.4 % (19-41); Mean Corp Hgb Conc 32.5 g/dL (32-36); Mean Corpuscular Hgb 28.4 pg (27.0-32.0); Mean Corpuscular Volume 87.5 fL (80-94); Mean Platelet Vol. 8.7 fl (6.2-12.0); Monocyte# 0.31 X10^3/uL; Monocyte% 4.1 % (0-10); NRBC Flagged by Analyzer 0 % (0-5); Neutrophil # 6.44 X10^3/uL (2.7-7.7); Neutrophil % 85.2 % (47-70); POSITIVE MORPHOLOGY YES; Platelet Count 245 K/mm3 (150-450); RBC Distribution Width CV 12.9 % (11.6-14.6); Red Blood Count 3.45 M/mm3 (4.6-6.2); White Blood Count 7.6 K/mm3 (4.4-11.0)
[2024-06-21 14:00] LABS: Differential Indicated SCAN CRITERIA MET
[2024-06-21 14:23] VITALS: BP 101/62; PULSE 68; RESP 16; TEMP 36.7; O2SAT 94
[2024-06-21 14:24] LABS: Anion Gap 6 (5-15); BUN 12 mg/dL (7-18); BUN/Creat Ratio 12.1 RATIO (10-20); Calcium,Total 7.9 mg/dL (8.5-10.1); Chloride 108 mmol/L (98-107); Creatinine, Serum 0.99 mg/dL (0.70-1.30); EST Glomerular Filtration Rate 79 mL/min (>60); Est Glom Filt Rate - Afr Amer 96 mL/min (>60); Estimated Creatinine Clearance 68.22 ml/min; Glucose 247 mg/dL (74-106); Potassium 3.6 mmol/L (3.5-5.1); Sodium Level 138 mmol/L (136-145)
[2024-06-21 14:28] LABS: Dohle Bodies 1+; Platelet Estimate ADEQUATE (ADEQ); Toxic Granulation 1+; Vacuolated Cells RARE
[2024-06-21 14:29] LABS: Red Cell Morphology NORM C+C NORMAL (NORM C&C)
[2024-06-21] MEDS: 0.9% Saline Lock 10 ML Syringe IV ×2 (15:22→22:21)
[2024-06-21 22:07] VITALS: BP 113/66; PULSE 62; RESP 16; TEMP 36.9; O2SAT 98
[2024-06-21] MEDS: Atorvastatin Calcium 10 MG Tablet PO (22:21)
[2024-06-22] MEDS: Vancomycin 125 MG/5 ML Susp PO.SYRINGE PO ×4 (00:51→19:27)
[2024-06-22] MEDS: Acetaminophen 325 MG Tablet 650 MG PO ×3 (03:36→21:20)
[2024-06-22 03:38] VITALS: BP 120/75; PULSE 63; RESP 16; TEMP 36.7; O2SAT 94
[2024-06-22 05:35] LABS: Absolute Lymphocyte Count 0.76 X10^3/uL (0.83-4.51); Absolute Neutrophil Count 4.5 X10^3/uL (2.0-7.7); Basophil# 0.03 X10^3/uL; Basophil% 0.5 % (0-1); Eosinophil# 0.01 X10^3/uL; Eosinophils% 0.2 % (0-5); Hemoglobin 9.3 g/dL (13.0-16.5); Lymphocyte # 0.76 X10^3/ul (0.83-4.51); Lymphocyte % 12.9 % (19-41); Mean Corp Hgb Conc 33.2 g/dL (32-36); Mean Corpuscular Volume 87.2 fL (80-94); Mean Platelet Vol. 8.5 fl (6.2-12.0); Monocyte# 0.31 X10^3/uL; Monocyte% 5.3 % (0-10); NRBC Flagged by Analyzer 0.3 % (0-5); Neutrophil # 4.52 X10^3/uL (2.7-7.7); Neutrophil % 76.7 % (47-70); POSITIVE MORPHOLOGY YES; Platelet Count 242 K/mm3 (150-450); RBC Distribution Width CV 12.7 % (11.6-14.6); RBC Distribution Width SD 40.6 fl (35.1-43.9); Red Blood Count 3.21 M/mm3 (4.6-6.2); White Blood Count 5.9 K/mm3 (4.4-11.0)
[2024-06-22 05:47] LABS: Differential Indicated SCAN CRITERIA MET
[2024-06-22 05:59] LABS: Anion Gap 3 (5-15); BUN 13 mg/dL (7-18); Calcium,Total 7.8 mg/dL (8.5-10.1); Chloride 110 mmol/L (98-107); Creatinine, Serum 0.76 mg/dL (0.70-1.30); EST Glomerular Filtration Rate 106 mL/min (>60); Est Glom Filt Rate - Afr Amer 129 mL/min (>60); Estimated Creatinine Clearance 84.42 ml/min; Glucose 164 mg/dL (74-106); Potassium 3.9 mmol/L (3.5-5.1); Sodium Level 138 mmol/L (136-145)
[2024-06-22] MEDS: metroNIDAZOLE 500 MG/100 ML BAG 100 MG IV (06:28)
[2024-06-22 06:50] LABS: Differential Comment SCANNED
[2024-06-22 09:01] VITALS: BP 103/64; PULSE 60; RESP 14; TEMP 36.8; O2SAT 97
[2024-06-22] MEDS: MESALAMINE 400 MG CAPSULE.DR PO ×2 (10:33→21:21)
[2024-06-22] MEDS: Glucerna Shake 120 ML LIQUID PO ×3 (10:33→16:45)
[2024-06-22] MEDS: Triamcinolone 0.5% Cream 1 APPLIC TOPICAL ×2 (10:34→21:21)
--- NOTE | 2024-06-22 11:52 | PN.HOSP_ITS ---
Reason for Visit Reason for Visit: Diagnoses Melena (06/19/24) Objective Data Objective Data Vital Signs: Vital Signs Temp Pulse Resp BP Pulse Ox O2 Del Method 98.3 F 60 14 103/64 97 Room Air 06/22/24 09:01 06/22/24 09:01 06/22/24 09:01 06/22/24 09:01 06/22/24 09:01 06/22/24 10:00 Oxygen Delivery Method Room Air Weight: 160 lb Body Mass Index (BMI) 22.9 Intake & Output: Intake and Output for Last 24 Hours 06/20/24 06/21/24 06/22/24 23:59 23:59 23:59 Intake Total 3725.0 / 3725.0 2694 / 2694 200 / 200 Balance 3725.0 / 3725.0 2694 / 2694 200 / 200 Medical Nutrition Assessment Dietitian: Malnutrition Criteria Met Start: 06/20/24 12:57 Freq: Status: Active Protocol: Document 06/20/24 12:57 SLA (Rec: 06/20/24 12:57 SLA [email or web address]) Nutrition Malnutrition Evidence of Malnutrition Exists Yes Malnutrition (severe): Acute Illness/Injury Evidenced By Suboptimal Energy Intake ( Severe),Weight Loss (Severe) Clinical Problem Acute Disease or Injury Related Malnutrition Etiology related to issues w/ bloody diarrhea and suboptimal energy intake Signs/Symptoms as evidenced by pt w/ po intake meeting < 50% of est nutritional needs and 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 Problem Recommendation Dietitian Recommendations/Changes As medically able, rec SAVAGE to Transitional w/ goal of Cardiac (CHO controlled if gluc remains elevated) Will monitor for changes in pt nutritional status and make additional rec as indicated Lab / Micro Data 06/22/24 04:42 06/22/24 04:42 Labs: Laboratory Results - last 24 hr 06/21/24 13:00: WBC 7.6, RBC 3.45 L, Hgb 9.8 L, Hct 30.2 L, MCV 87.5, MCH 28.4, MCHC 32.5 D, RDW Std Deviation 41.0, RDW Coeff of Janice 12.9, Plt Count 245, MPV 8.7, Immature Gran % (Auto) 0.900, Neut % (Auto) 85.2 H, Lymph % (Auto) 9.4 L, [place] % (Auto) 4.1, Eos % (Auto) 0.0, Baso % (Auto) 0.4, Absolute Neuts (auto) 6.4, Absolute Lymphs (auto) 0.71 L, Nucleated RBC % 0, Toxic Granulation 1+, Toxic Vacuolation RARE, Dohle Bodies 1+, Platelet Estimate ADEQUATE, RBC Morphology NORM C+C, ESR 18, Sodium 138, Potassium 3.6, Chloride 108 H, Carbon Dioxide 25.0, Anion Gap 6, BUN 12, Creatinine 0.99, Estim Creat Clear Calc 68.22, Est GFR (MDRD) Af Amer 96, Est GFR (MDRD) Non-Af 79, BUN/Creatinine Ratio 12.1, Glucose 247 H, Calcium 7.9 L, C-React Prot Ext Range 19.70 H 06/22/24 04:42: WBC 5.9, RBC 3.21 L, Hgb 9.3 L, Hct 28.0 L, MCV 87.2, MCH 29.0, MCHC 33.2, RDW Std Deviation 40.6, RDW Coeff of Janice 12.7, Plt Count 242, MPV 8.5, Immature Gran % (Auto) 4.400 H, Neut % (Auto) 76.7 H, Lymph % (Auto) 12.9 L , [place] % (Auto) 5.3, Eos % (Auto) 0.2, Baso % (Auto) 0.5, Absolute Neuts (auto) 4.5, Absolute Lymphs (auto) 0.76 L, Nucleated RBC % 0.3, Differential Comment SCANNED, Sodium 138, Potassium 3.9, Chloride 110 H, Carbon Dioxide 25.0, Anion Gap 3 L, BUN 13, Creatinine 0.76, Estim Creat Clear Calc 84.42, Est GFR (MDRD) Af Amer 129, Est GFR (MDRD) Non-Af 106, BUN/Creatinine Ratio 17.0, Glucose 164 H , Calcium 7.8 L Micro: Microbiology 06/20/24 18:00 Stool Stool Lactoferrin - Final 06/19/24 20:30 Stool Stool Lactoferrin - Final 06/19/24 20:30 Stool Enteric Bacteriology - Final 06/19/24 20:30 Stool C. difficile GDH Antigen & Toxins - Final 06/19/24 20:30 Stool Clostridioides difficile (PCR) - Final Physical Exam Narrative Seen and examined. Patient stated he had 2-3 bloody bowel movements in last 2 days. Still blood in the stool. Frequency of diarrhea seems better. Patient states he is having bloody diarrhea for about 1 month. He had large- volume blood mixed loose bowel movement, 8-10 episodes per day. Denies abdominal pain. Denies rectal pain or tenesmus. Physical exam General: Alert, Oriented x3, Cooperative. BMI 23.0 kg/m? HEENT: Conjunctiva pale atraumatic, PERRLA, EOMI, Normocephalic Oral: Oral mucosa dry. No Gingival or Mucosal Lesions/ Ulcerations Neck: Supple, No JVD, Negative Carotid Bruits Chest wall/Lungs: Air entry diminished in bilateral lung bases. No crepitation/rhonchi Cardiovascular: Sinus rhythm, Normal S1, Normal S2, No M/G/R Abdomen: Bowel Sounds Present, Soft, Non Tender, Non-Distended. No palpable mass scaphoid abdomen : No dysuria. No renal angle tenderness. No suprapubic tenderness. Extremities: No edema, Capillary Refill Less than 3 Seconds Skin: No rashes, No breakdown Musculoskeletal: No Tenderness to Palpation of Joints or Extremities. Moderate decreased bulk of muscle loss subcutaneous fat. Neurological: Cranial nerves II-XII grossly intact, DTR 2+/4. No acute focal neurological deficit. Psych/Mental Status: Flat affect. Assessment & Plan Assessment/Plan (1) Blood in stool: PLAN: Plan 74-year-old gentleman with history of ulcerative colitis and diverticulitis and diverticulosis came to ED with chief complaint of bloody diarrhea for last couple weeks. 1. Hematochezia possible ulcerative colitis flare/infectious or ischemic colitis possible C. difficile colitis: Patient is being admitted on MedSurg floor. It is less likely to have diverticulitis without pain. Stool for C. difficile came positive for A/B antigen but toxin is negative, PCR positive possible colonization but infection cannot be ruled out especially in the background of ulcerative colitis. Therefore started on oral vancomycin. Continue Flagyl and IV Solu-Medrol. GI is consulted. No abdominal pain. Patient is going for EGD and colonoscopy. -KUB shows distended small bowel loops suggestive of ileus. -CRP and ESR elevated. continue patient's mesalamine 06/21: H&H 9.6/27%. Monitor CBC. Iron profile shows ferritin is normal and suggestive of anemia of chronic disease/inflammatory anemia. Colonoscopy 06/20/2024 Impressions : - Severe (Hernandez Score 3) pancolitis ulcerative colitis, worsened since the last examination. Biopsied. Recommendations : - Repeat colonoscopy in 6 months to assess disease activity. 06/22: Patient quit his smoking cigarettes about 1 year ago but he chews tobacco. Advised cessation of nicotine and all form fror healing of pancolitis from IBD. Discussed with Dr. Penny. Patient wants to go home tomorrow a.m. about 10 AM. Might discharge on 10 days course of p.o. Vanco. Flagyl discontinued. Continue Solu-Medrol. Will need to follow in GI clinic with Dr. Penny for prior authorization of TNF inhibitor. CRP and ESR elevated. Regular diet 2. Acute blood loss anemia on chronic anemia: Patient baseline hemoglobin is 12.4. Might be hemoconcentrated but dropped to 9.6 today. Anemia workup ordered. 06/21: As mentioned above. 3. Rash on shins -Continue topical steroid 4. Hypokalemia -Replace to repeat potassium is 3.8. Magnesium 1.8. #DVT ppx: SCDs Microbiology Past 72 Hours 06/20/24 18:00 Stool Stool Lactoferrin - Final 06/19/24 20:30 Stool Stool Lactoferrin - Final 06/19/24 20:30 Stool Enteric Bacteriology - Final 06/19/24 20:30 Stool C. difficile GDH Antigen & Toxins - Final 06/19/24 20:30 Stool Clostridioides difficile (PCR) - Final Laboratory Results 06/21/24 13:00: WBC 7.6, RBC 3.45 L, Hgb 9.8 L, Hct 30.2 L, MCV 87.5, MCH 28.4, MCHC 32.5 D, RDW Std Deviation 41.0, RDW Coeff of Janice 12.9, Plt Count 245, MPV 8.7, Immature Gran % (Auto) 0.900, Neut % (Auto) 85.2 H, Lymph % (Auto) 9.4 L, [place] % (Auto) 4.1, Eos % (Auto) 0.0, Baso % (Auto) 0.4, Absolute Neuts (auto) 6.4, Absolute Lymphs (auto) 0.71 L, Nucleated RBC % 0, Toxic Granulation 1+, Toxic Vacuolation RARE, Dohle Bodies 1+, Platelet Estimate ADEQUATE, RBC Morphology NORM C+C, ESR 18, Sodium 138, Potassium 3.6, Chloride 108 H, Carbon Dioxide 25.0, Anion Gap 6, BUN 12, Creatinine 0.99, Estim Creat Clear Calc 68.22, Est GFR (MDRD) Af Amer 96, Est GFR (MDRD) Non-Af 79, BUN/Creatinine Ratio 12.1, Glucose 247 H, Calcium 7.9 L, C-React Prot Ext Range 19.70 H, 06/22/24 04:42: WBC 5.9, RBC 3.21 L, Hgb 9.3 L, Hct 28.0 L, MCV 87.2, MCH 29.0, MCHC 33.2, RDW Std Deviation 40.6, RDW Coeff of Janice 12.7, Plt Count 242, MPV 8.5, Immature Gran % (Auto) 4.400 H, Neut % (Auto) 76.7 H, Lymph % (Auto) 12.9 L , [place] % (Auto) 5.3, Eos % (Auto) 0.2, Baso % (Auto) 0.5, Absolute Neuts (auto) 4.5, Absolute Lymphs (auto) 0.76 L, Nucleated RBC % 0.3, Differential Comment SCANNED, Sodium 138, Potassium 3.9, Chloride 110 H, Carbon Dioxide 25.0, Anion Gap 3 L, BUN 13, Creatinine 0.76, Estim Creat Clear Calc 84.42, Est GFR (MDRD) Af Amer 129, Est GFR (MDRD) Non-Af 106, BUN/Creatinine Ratio 17.0, Glucose 164 H , Calcium 7.8 L Clinical Impression(s) from Imaging Studies KUB X-Ray 06/19/24 16:35 IMPRESSION: Slightly distended small bowel loops may be related to an ileus. Charges/Coding Visit Charges Inpatient E&M: 24026 Subs Hosp L2
[2024-06-22 14:16] VITALS: BP 106/63; PULSE 69; RESP 14; TEMP 36.7; O2SAT 97
[2024-06-22 21:13] VITALS: BP 128/76; PULSE 63; RESP 16; TEMP 36.8; O2SAT 96
[2024-06-22] MEDS: Atorvastatin Calcium 10 MG Tablet PO (21:21)
[2024-06-22] MEDS: 0.9% Saline Lock 10 ML Syringe IV (21:25)
[2024-06-23] MEDS: Vancomycin 125 MG/5 ML Susp PO.SYRINGE PO ×3 (00:45→15:25)
[2024-06-23 03:30] VITALS: BP 118/76; PULSE 68; RESP 16; TEMP 37.2; O2SAT 96
[2024-06-23 06:08] LABS: Hematocrit 31.9 % (40-54); Hemoglobin 10.1 g/dL (13.0-16.5); Mean Corp Hgb Conc 31.7 g/dL (32-36); Mean Corpuscular Hgb 27.7 pg (27.0-32.0); Mean Corpuscular Volume 87.4 fL (80-94); POSITIVE COUNT YES; POSITIVE MORPHOLOGY YES; Platelet Count 240 K/mm3 (150-450); RBC Distribution Width CV 12.8 % (11.6-14.6); RBC Distribution Width SD 40.7 fl (35.1-43.9); Red Blood Count 3.65 M/mm3 (4.6-6.2); White Blood Count 8.2 K/mm3 (4.4-11.0)
[2024-06-23 06:15] LABS: Differential Indicated MANUAL DIFF
[2024-06-23 06:46] LABS: Anion Gap 4 (5-15); BUN 13 mg/dL (7-18); BUN/Creat Ratio 15.7 RATIO (10-20); Calcium,Total 8.1 mg/dL (8.5-10.1); Chloride 111 mmol/L (98-107); Creatinine, Serum 0.83 mg/dL (0.70-1.30); EST Glomerular Filtration Rate 97 mL/min (>60); Est Glom Filt Rate - Afr Amer 117 mL/min (>60); Estimated Creatinine Clearance 81.37 ml/min; Glucose 164 mg/dL (74-106); Potassium 3.8 mmol/L (3.5-5.1); Sodium Level 140 mmol/L (136-145)
[2024-06-23 06:52] LABS: Lymphocyte 16 % (19-41); Monocyte 5 % (0-10); Neutrophil-Band 21 % (0-5); Neutrophil-Segmented 58 % (47-70); Total Cells Counted 100 (MANUAL DIFF)
[2024-06-23 06:53] LABS: Absolute Neutrophil Count 6.5 X10^3/uL (2.0-7.7)
[2024-06-23 08:40] VITALS: BP 119/72; PULSE 66; RESP 18; TEMP 37.3; O2SAT 95
[2024-06-23] MEDS: MESALAMINE 400 MG CAPSULE.DR PO (08:44)
[2024-06-23] MEDS: Glucerna Shake 120 ML LIQUID PO (08:44)
[2024-06-23] MEDS: Triamcinolone 0.5% Cream 1 APPLIC TOPICAL (08:47)
--- NOTE | 2024-06-23 10:56 | PCM.DC ---
Discharge Instructions Diet Discharge Diet: No restrictions DC O2, CPAP, BIPAP needs Additional Home O2 Discharge instructions: No Dressing / Incision Discharge Activity: Return to Normal Activity Dressing / Incision Call your doctor if you observe: Fever of 101 or Higher, Shortness of breath, Dizziness, Fainting spells, Swelling in the ankles, Chest pain and Increased palpitations (irregular heartbeat) Follow Up Care Test Results: Test results from this visit will be discussed in further detail at your follow-up appointment, if applicable. Discharge Plan Admission Admit Date/Time: 06/19/24 15:18 Attending Provider: Karan Chen Primary Care Provider: Reji Levin Consulting Providers: Lb Hall; Angelia Pollock Instructions Patient Instructions: ED Ulcerative Colitis Discharge Orders/Prescriptions Prescriptions: New prednisone 10 mg tablet 10 mg PO DAILY Qty: 48 0RF Rx Instructions: 6 po qd x 3 days, 4 po qd x 3 days, 2 po qd x 3 days, 1 po qd x 3 days vancomycin 125 mg capsule 125 mg PO Q6H 10 Days Qty: 40 0RF Continued baclofen 10 mg tablet 10 mg PO TID Patient Comments: take 1 tablet by mouth three times a day etodolac 400 mg tablet 400 mg PO BID Patient Comments: take 1 tablet by mouth twice a day mesalamine [Pentasa] 500 mg capsule, extended release 500 mg PO BID Patient Comments: take 1 capsule by mouth twice a day albuterol sulfate 90 mcg/actuation HFA aerosol inhaler 1 inh inhalation Q6H PRN (Reason: shortness of breath or wheezing) Qty: 8.5 1RF triamcinolone acetonide 0.5 % cream 1 applic TOPICAL BID Patient Comments: RASH ON LEG diphenoxylate-atropine 2.5-0.025 mg tablet 1 tab PO 4X/DAY simvastatin 20 mg tablet 20 mg PO QHS pregabalin 150 mg capsule 150 mg PO BID Referrals / Follow Up: Reji Levin MD [Primary Care Provider] - Within 1 Week Guicho Penny DO [Med Staff - Active Staff] - As soon as possible Disposition Disposition (needs filled in before D/C Order can be placed): Home, Self Care
--- NOTE | 2024-06-23 11:43 | PHA.DC_ITS ---
Pharmacy [facility] has performed discharge medication reconciliation and counseling for this patient. 1. PREDNISONE 60MG PO DAILY X 3 DAYS, 40MG X 3 DAYS, 20MG X 3 DAYS, 10MG X 3 DAYS 2. VANCOMYCIN 125MG PO Q6 X 10 DAYS The patient's discharge medication list was reviewed for discrepancies and discrepancies were resolved. The patient was counseled on the following discharge medications and changes in medications for homegoing were reviewed. The Reason for Use, instructions for use, and potential side effects were reviewed for all new medications. The patient's questions regarding all of their medications were answered. The patient was able to verbally demonstrate an understanding of their discharge medications. Medications at Discharge Home Medications baclofen 10 mg tablet 10 mg PO TID pain 02/25/21 etodolac 400 mg tablet 400 mg PO BID inflammation 02/25/21 mesalamine 500 mg capsule,extended release (Pentasa) 500 mg PO BID pain/inflammation 02/25/21 albuterol sulfate 90 mcg/actuation aerosol inhaler 1 inh inhalation Q6H PRN shortness of breath or wheezing #8.5 grams 02/26/21 diphenoxylate-atropine 2.5 mg-0.025 mg tablet 1 tab PO 4X/DAY 06/19/24 prednisone 10 mg tablet 10 mg PO DAILY #48 TABLETS 06/19/24 pregabalin 150 mg capsule 150 mg PO BID 06/19/24 simvastatin 20 mg tablet 20 mg PO QHS 06/19/24 triamcinolone acetonide 0.5 % topical cream 1 applic topical BID 06/19/24 vancomycin 125 mg capsule 125 mg PO Q6H 10 days #40 caps 06/23/24
--- NOTE | 2024-06-23 11:48 | CASEMGMT ---
Addendum entered by José Luis Cho 06/23/24 14:11: Call placed to [facility], made aware PA obtained for the vanco. She re-ran it, it went through insurance, and cost is now $4.50. Pt made aware. He states he can afford this amt and voices appreciation. Addendum entered by José Luis Cho 06/23/24 13:49: PA obtained for vancomycin. Call placed to [facility]. They are closed for lunch and will return @ 2 PM. Addendum entered by Rita Momin 06/23/24 13:14: TC to [facility] pharmacy, pt cost oop for med is $928. TC to [facility], cost is $87.82 with a senior discount. SYDNI PRESTON into pt room, pt states that he does not have any funds. Explored options such as borrowing from a family member, friend, community member and pt states he has no ability to do so. SYDNI PRESTON updated hospitalist, requested rx assist. Will discuss with director for decision for approval for this, left vm. Addendum entered by Rita Momin 06/23/24 12:31: Received tc back from [facility], vancomycin does need a prior authorization. TC to [facility], prior authorization initiated with having 72 hours for a decision. Case # is [id number]. Fax number for clinicals is . Sent clinical information at this time via fax with case number referenced. Updated hospitalist on situation. Original Note: TC to [facility] pharmacy, had to leave a message with request for returned call for cost of medication as well if a prior auth is needed. Will await call back.
[2024-06-23 11:49] LABS: Bedside Glucose 141 mg/dL (74-106)
--- NOTE | 2024-06-23 15:00 | PCM.DC.SUM ---
Providers Date of Admission: 06/19/24 Primary Care Physician: Dr. Reji Levin MD Consultations 06/19/24 18:40 Consult: Gastroenterology Routine Consulting Provider: [facility] Reason for Consult: ??UC flare?? EMERGENT Consult: No MD Notified: Yes Date Notified: 06/19/24 Time Notified: 18:46 Method of Notification: Text Reason For Visit: BLOODY DIARRHEA Diagnosis Discharge Diagnosis (1) Blood in stool: Status: Acute Code(s): K92.1 - Melena Medications at Discharge Home Medications baclofen 10 mg tablet 10 mg PO TID pain 02/25/21 etodolac 400 mg tablet 400 mg PO BID inflammation 02/25/21 mesalamine 500 mg capsule,extended release (Pentasa) 500 mg PO BID pain/inflammation 02/25/21 albuterol sulfate 90 mcg/actuation aerosol inhaler 1 inh inhalation Q6H PRN shortness of breath or wheezing #8.5 grams 02/26/21 diphenoxylate-atropine 2.5 mg-0.025 mg tablet 1 tab PO 4X/DAY 06/19/24 prednisone 10 mg tablet 10 mg PO DAILY #48 TABLETS 06/19/24 pregabalin 150 mg capsule 150 mg PO BID 06/19/24 simvastatin 20 mg tablet 20 mg PO QHS 06/19/24 triamcinolone acetonide 0.5 % topical cream 1 applic topical BID 06/19/24 vancomycin 125 mg capsule 125 mg PO Q6H 10 days #40 caps 06/23/24 Hospital Course Operations None Procedures Colonoscopy Summary of Care Provided Minutes Spent on Discharge: 36 Hospital Course: Per HPI: NISHA MARTINS, is a 74 M with possible colitis history who presented to [facility] ED 06/19/2024 due to 2 to 3 weeks of rectal bleeding. He reportedly was having multiple episodes a day of bloody stool and given its lack of improvement he presented to the ED. In the ED he had multiple episodes of bloody stool and the hemoglobin was 12.4, similar to previous, given his continued bloody stools as well and also was orthostatic positive and was dizzy on standing he was advised patient be admitted for further workup and management which she was agreeable. Patient evaluated at bedside and reports for the past several weeks he has had 8-10 episodes a day of moderately bloody bowel movements, he is a poor historian and did endorse a history of ulcerative colitis to the ED physician but told me he was unsure but had been on prednisone and medications for colitis but said he was not actively taking these at this time. He is unsure if he is ever seen a GI doctor before. Patient does report he has been having very poor p.o. intake due to having bowel movements after he eats. Gets a little bit of abdominal cramping before he has a bowel movement but no significant abdominal pain and it goes away after that. Only other complaint is that he has a rash on his shins which has been present for a year. He does not have any measured fevers at home. Denies recent alcohol, tobacco, or drug use. Hospital course: 1. Hematochezia possible ulcerative colitis flare/infectious or ischemic colitis possible C. difficile colitis: Patient is being admitted on MedSur floor. It is less likely to have diverticulitis without pain. Stool for C. difficile came positive for A/B antigen but toxin is negative, PCR positive possible colonization but infection cannot be ruled out especially in the background of ulcerative colitis. Therefore started on oral vancomycin. Continue Flagyl and IV Solu-Medrol. GI is consulted. No abdominal pain. Patient is going for EGD and colonoscopy. -KUB shows distended small bowel loops suggestive of ileus. -CRP and ESR elevated. continue patient's mesalamine 06/21: H&H 9.6/27%. Monitor CBC. Iron profile shows ferritin is normal and suggestive of anemia of chronic disease/inflammatory anemia. Colonoscopy 06/20/2024 Impressions : - Severe (Hernandez Score 3) pancolitis ulcerative colitis, worsened since the last examination. Biopsied. Recommendations : - Repeat colonoscopy in 6 months to assess disease activity. 06/22: Patient quit his smoking cigarettes about 1 year ago but he chews tobacco. Advised cessation of nicotine and all form fror healing of pancolitis from IBD. Discussed with Dr. Penny. Patient wants to go home tomorrow a.m. about 10 AM. Might discharge on 10 days course of p.o. Vanco. Flagyl discontinued. Continue Solu-Medrol. Will need to follow in GI clinic with Dr. Penny for prior authorization of TNF inhibitor. CRP and ESR elevated. Regular diet 06/23/2024: Doing much better today, he does have pancolitis on his colonoscopy and he is on mesalamine as an outpatient. Will continue with the prednisone taper that he was given in the ER on discharge and have him follow-up with gastroenterology in the office. Will also place him on 10 days of p.o. vancomycin 125 mg 4 times daily as he is positive for C. difficile. This course can be extended in the GI office within the next week or 2 if indicated. I discussed with him the plan for discharge today he expressed understanding of the risk benefits of going home and he would like to go home today. He will need to follow-up with GI this week and his primary care doctor in the next 3 to 5 days. As for his anemia, he states that he has had improvement in his abdominal discomfort and hematochezia to the point where he is only having brown bowel movements now. 2. Acute blood loss anemia on chronic anemia: Patient baseline hemoglobin is 12.4. Might be hemoconcentrated but dropped to 9.6 today. Anemia workup ordered. 06/21: As mentioned above. 06/23/2024: Hemoglobin of 10.1 today Physical Exam Narrative General: Alert, Oriented x3, Cooperative, No apparent distress HEENT: Atraumatic, PERRLA, EOMI, Normocephalic Oral: Moist Mucosa Neck: Supple, No JVD Lungs: Diminished, Normal air movement, No rhonchi, No wheeze, No rales Cardiovascular: Regular rate, Regular Rhythm, Normal S1, Normal S2, No murmurs Abdomen: Soft, Non Tender, Non-Distended, No Hepato-splenomegaly Extremities: No edema, Capillary Refill Less than 3 Seconds Skin: No rashes, No breakdown Musculoskeletal: No Tenderness to Palpation of Joints or Extremities Neurological: No focal neurological deficits, Motor Exam 5/5 strength throughout, Sensory exam intact to light touch and pain Psych/Mental Status: Normal Affect, Appropriate Medical Records Data Medical Nutrition Assessment Dietitian: Malnutrition Criteria Met Start: 06/20/24 12:57 Freq: Status: Active Protocol: Document 06/20/24 12:57 WILD (Rec: 06/20/24 12:57 WILD [id number]) Nutrition Malnutrition Evidence of Malnutrition Exists Yes Malnutrition (severe): Acute Illness/Injury Evidenced By Suboptimal Energy Intake ( Severe),Weight Loss (Severe) Clinical Problem Acute Disease or Injury Related Malnutrition Etiology related to issues w/ bloody diarrhea and suboptimal energy intake Signs/Symptoms as evidenced by pt w/ po intake meeting < 50% of est nutritional needs and 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 Status Active Problem Recommendation Dietitian Recommendations/Changes As medically able, rec SAVAGE to Transitional w/ goal of Cardiac (CHO controlled if gluc remains elevated) Will monitor for changes in pt nutritional status and make additional rec as indicated Weight / BMI Weight Weight: 160 lb Body Mass Index (BMI) 22.9 ABG / Lab / Microbiology Data 06/23/24 06:07 06/23/24 06:07 Laboratory: Laboratory Results - last 24 hr 06/19/24 16:12: Crossmatch See Detail 06/23/24 06:07: WBC 8.2, RBC 3.65 L, Hgb 10.1 L, Hct 31.9 L, MCV 87.4, MCH 27.7, MCHC 31.7 L, RDW Std Deviation 40.7, RDW Coeff of Janice 12.8, Plt Count 240, MPV 8.0, Neut % (Auto) Not Reportable, Absolute Neuts (auto) 6.5, Absolute Lymphs (auto) 1.30, Total Counted 100, Neutrophils % (Manual) 58, Band Neutrophils % 21 H, Lymphocytes % (Manual) 16 L, Monocytes % (Manual) 5, Sodium 140, Potassium 3.8, Chloride 111 H, Carbon Dioxide 25.0, Anion Gap 4 L, BUN 13, Creatinine 0.83, Estim Creat Clear Calc 81.37, Est GFR (MDRD) Af Amer 117, Est GFR (MDRD) Non-Af 97, BUN/Creatinine Ratio 15.7, Glucose 164 H, Calcium 8.1 L 06/23/24 11:32: POC Glucose 141 H Microbiology: Microbiology 06/20/24 18:00 Stool Stool Lactoferrin - Final 06/19/24 20:30 Stool Stool Lactoferrin - Final 06/19/24 20:30 Stool Enteric Bacteriology - Final 06/19/24 20:30 Stool C. difficile GDH Antigen & Toxins - Final 06/19/24 20:30 Stool Clostridioides difficile (PCR) - Final D/C Instructions Discharge Diet: No restrictions Call your doctor if you observe: Fever of 101 or Higher, Shortness of breath, Dizziness, Fainting spells, Swelling in the ankles, Chest pain and Increased palpitations (irregular heartbeat) DC O2, CPAP, BIPAP Needs Additional Home O2 Discharge instructions: No DC home with Oxygen: No Meaningful Use Info Meaningful Use Meaningful Use Diagnoses (Choose all that apply): None applicable Ischemic Stroke Statin Dosing Therapy Reference: STATIN DOSE THERAPY REFERENCE: * Patients > 75 years receive moderate or high dose statin therapy. * Patients 75 years or YOUNGER should receive HIGH intensity statin dose unless contraindicated. You will be required to document reason for non-treatment if statin daily dose does not meet guidelines. HIGH DOSE STATIN THERAPY DAILY Atorvastatin > than or = to 40 mg Rosuvastatin > than or = to 20 mg Amlodipine + Atorvastatin > than or = to 2.5/40 mg Ezetimibe + Simvastatin 10/80 mg Simvastatin 80mg Discharge Plan Admission Admit Date/Time: 06/19/24 15:18 Attending Provider: Karan Chen Primary Care Provider: Reji Levin Consulting Providers: Lb Hall; Angelia Pollock Instructions Patient Instructions: ED Ulcerative Colitis Discharge Orders/Prescriptions Prescriptions: New prednisone 10 mg tablet 10 mg PO DAILY Qty: 48 0RF Rx Instructions: 6 po qd x 3 days, 4 po qd x 3 days, 2 po qd x 3 days, 1 po qd x 3 days vancomycin 125 mg capsule 125 mg PO Q6H 10 Days Qty: 40 0RF Continued baclofen 10 mg tablet 10 mg PO TID Patient Comments: take 1 tablet by mouth three times a day etodolac 400 mg tablet 400 mg PO BID Patient Comments: take 1 tablet by mouth twice a day mesalamine [Pentasa] 500 mg capsule, extended release 500 mg PO BID Patient Comments: take 1 capsule by mouth twice a day albuterol sulfate 90 mcg/actuation HFA aerosol inhaler 1 inh inhalation Q6H PRN (Reason: shortness of breath or wheezing) Qty: 8.5 1RF triamcinolone acetonide 0.5 % cream 1 applic TOPICAL BID Patient Comments: RASH ON LEG diphenoxylate-atropine 2.5-0.025 mg tablet 1 tab PO 4X/DAY simvastatin 20 mg tablet 20 mg PO QHS pregabalin 150 mg capsule 150 mg PO BID Referrals / Follow Up: Reji Levin MD [Primary Care Provider] - Within 1 Week Friend,Guicho, DO [Med Staff - Active Staff] - As soon as possible Disposition Disposition (needs filled in before D/C Order can be placed): Home, Self Care Charges/Coding Visit Charges Inpatient E&M: 89787 Disch Hosp >30min
[2024-06-23 15:21] VITALS: BP 122/73; PULSE 76; RESP 18; TEMP 37.2; O2SAT 97
--- NOTE | 2024-06-23 19:26 | EX.PCM.PN.GI ---
Subjective Subjective Patient's diarrhea is greatly improved. He has no longer had any signs of lower GI bleeding. He is tolerating antibiotics and steroid therapy. Objective Data Objective Data Vital Signs: Vital Signs Temp Pulse Resp BP Pulse Ox O2 Del Method 99.0 F 76 18 122/73 H 97 Room Air 06/23/24 15:21 06/23/24 15:21 06/23/24 15:21 06/23/24 15:21 06/23/24 15:21 06/23/24 15:21 Oxygen Delivery Method Room Air Weight: 160 lb Body Mass Index (BMI) 22.9 Intake & Output: Intake and Output for Last 24 Hours 06/21/24 06/22/24 06/23/24 23:59 23:59 23:59 Intake Total 2694 / 2694 200 / 200 Balance 2694 / 2694 200 / 200 Lab / Micro Data 06/23/24 06:07 06/23/24 06:07 Labs: Laboratory Results - last 24 hr 06/19/24 16:12: Crossmatch See Detail 06/23/24 06:07: WBC 8.2, RBC 3.65 L, Hgb 10.1 L, Hct 31.9 L, MCV 87.4, MCH 27.7, MCHC 31.7 L, RDW Std Deviation 40.7, RDW Coeff of Janice 12.8, Plt Count 240, MPV 8.0, Neut % (Auto) Not Reportable, Absolute Neuts (auto) 6.5, Absolute Lymphs (auto) 1.30, Total Counted 100, Neutrophils % (Manual) 58, Band Neutrophils % 21 H, Lymphocytes % (Manual) 16 L, Monocytes % (Manual) 5, Sodium 140, Potassium 3.8, Chloride 111 H, Carbon Dioxide 25.0, Anion Gap 4 L, BUN 13, Creatinine 0.83, Estim Creat Clear Calc 81.37, Est GFR (MDRD) Af Amer 117, Est GFR (MDRD) Non-Af 97, BUN/Creatinine Ratio 15.7, Glucose 164 H, Calcium 8.1 L 06/23/24 11:32: POC Glucose 141 H Micro: Microbiology 06/20/24 18:00 Stool Stool Lactoferrin - Final 06/19/24 20:30 Stool Stool Lactoferrin - Final 06/19/24 20:30 Stool Enteric Bacteriology - Final 06/19/24 20:30 Stool C. difficile GDH Antigen & Toxins - Final 06/19/24 20:30 Stool Clostridioides difficile (PCR) - Final Physical Exam Narrative General: Alert, Oriented x3, Cooperative, No apparent distress HEENT: Atraumatic, PERRLA, EOMI, Normocephalic Oral: Moist Mucosa Neck: Supple, No JVD Lungs: Diminished, Normal air movement, No rhonchi, No wheeze, No rales Cardiovascular: Regular rate, Regular Rhythm, Normal S1, Normal S2, No murmurs Abdomen: Soft, Non Tender, Non-Distended, No Hepato-splenomegaly Extremities: No edema, Capillary Refill Less than 3 Seconds Skin: No rashes, No breakdown Musculoskeletal: No Tenderness to Palpation of Joints or Extremities Neurological: No focal neurological deficits, Motor Exam 5/5 strength throughout, Sensory exam intact to light touch and pain Psych/Mental Status: Normal Affect, Appropriate Assessment & Plan Assessment/Plan (1) Blood in stool: PLAN: Plan 74-year-old gentleman with history of ulcerative colitis and diverticulitis and diverticulosis came to ED with chief complaint of bloody diarrhea for last couple weeks. Hematochezia possible ulcerative colitis flare/infectious or ischemic colitis possible C. difficile colitis: Patient is being admitted on MedSurg floor. It is less likely to have diverticulitis without pain. Stool for C. difficile came positive for A/B antigen but toxin is negative, PCR positive possible colonization but infection cannot be ruled out especially in the background of ulcerative colitis. Therefore started on oral vancomycin. Continue Flagyl and IV Solu-Medrol. No abdominal pain. Patient is going for EGD and colonoscopy. -KUB shows distended small bowel loops suggestive of ileus. -CRP and ESR elevated. continue patient's mesalamine 06/21: H&H 9.6/27%. Monitor CBC. Iron profile shows ferritin is normal and suggestive of anemia of chronic disease/inflammatory anemia. Colonoscopy 06/20/2024 Impressions : - Severe (Hernandez Score 3) pancolitis ulcerative colitis, worsened since the last examination. Biopsied. Recommendations : - Repeat colonoscopy in 6 months to assess disease activity. 06/23: Patient quit his smoking cigarettes about 1 year ago but he chews tobacco. Advised cessation of nicotine and all form fror healing of pancolitis from IBD. Patient wants to go home tomorrow a.m. about 10 AM. Might discharge on 10 days course of p.o. Vanco. Flagyl discontinued. Continue Solu-Medrol. Will need to follow in GI clinic for prior authorization of TNF inhibitor. CRP and ESR elevated. Regular diet Charges/Coding Visit Charges Inpatient E&M: 96954 Subs Hosp L3
[2024-06-24 11:09] LABS: Anti-Centromere B Ab <0.2 AI (0.0-0.9); Anti-Chromatin 0.2 AI (0.0-0.9); Anti-Jo <0.2 AI (0.0-0.9); Anti-Scleroderma-70 AB <0.2 AI (0.0-0.9); Anti-dsDNA Ab <1 IU/mL (0-9); RNP Ab <0.2 AI (0.0-0.9); SJOGREN'S Anti-SS-A test < 0.2 AI (0.0-0.9); SJOGREN'S Anti-SS-B test < 0.2 AI (0.0-0.9); Smith Ab <0.2 AI (0.0-0.9)
[2024-06-25 16:06] LABS: ACCA 213 units (0-90); ALCA 33 units (0-60); AMCA 33 units (0-100); Cytoplasmic Ab (C-ANCA) <1:20 titer (Neg:<1:20); HEPATITIS B SURFACE AG Negative (Negative); Hep C Antibodies Non Reactive (Non Reactive); Hepatitis A IgM Antibody Negative (Negative); Hepatitis B Core AB IgM Negative (Negative); IgG, Quant 1225 mg/dL (603-1613); Immunoglobulin A 490 mg/dL (61-437); Immunoglobulin E 1951 IU/mL (6-495); Immunoglobulin G, Subclass 1 627 mg/dL (248-810); Immunoglobulin G, Subclass 2 329 mg/dL (130-555); Immunoglobulin G, Subclass 3 73 mg/dL (15-102); Immunoglobulin G, Subclass 4 129 mg/dL (2-96); Immunoglobulin M 45 mg/dL (15-143); Perinuclear Ab (P-ANCA) <1:20 titer (Neg:<1:20); QNTFERON TB Mitogen Value 2.99 IU/mL (.); QNTFERON TB Nil Value 0.02 IU/mL (.); QNTFERON TB1+ Ag Value 0.05 IU/mL (.); QNTFERON TB2+ Ag Value 0.04 IU/mL (.); QNTIFERON TB Positive Criteria Negative (Negative); gASCA 6 units (0-50)
== END 2024-06-23 15:33 | disposition home or self-care (01) | DRG 385 ==
LOC: ED 14:29 → MS3 18:38
PROVIDERS: Internal Medicine; Internal Medicine Gastroenterology; Admitting Provider Internal Medicine; Emergency Provider Emergency Medicine; PCP Family Medicine; Visit Provider Family Medicine
PROC: 0DJD8ZZ Inspection of Lower Intestinal Tract, Via Natural or Artificial Opening Endoscopic (ICD-10-PCS; CPT 45378; principal; 2024-06-20 17:30)
DX: K51.011 Ulcerative (chronic) pancolitis with rectal bleeding (principal); E43 Unspecified severe protein-calorie malnutrition; D62 Acute posthemorrhagic anemia; K56.7 Ileus, unspecified; K92.1 Melena; A04.72 Enterocolitis due to Clostridium difficile, not specified as recurrent; D63.8 Anemia in other chronic diseases classified elsewhere; E86.0 Dehydration; E11.65 Type 2 diabetes mellitus with hyperglycemia; E78.00 Pure hypercholesterolemia, unspecified; I95.1 Orthostatic hypotension; K64.4 Residual hemorrhoidal skin tags; E87.6 Hypokalemia; F17.220 Nicotine dependence, chewing tobacco, uncomplicated; K58.0 Irritable bowel syndrome with diarrhea; Z79.52 Long term (current) use of systemic steroids; Z79.2 Long term (current) use of antibiotics; Z79.899 Other long term (current) drug therapy; Z68.22 Body mass index [BMI] 22.0-22.9, adult; Z79.51 Long term (current) use of inhaled steroids; Z79.02 Long term (current) use of antithrombotics/antiplatelets; R21 Rash and other nonspecific skin eruption
CPT/HCPCS: 36415; 74018; 80048; 80053; 80074; 82607; 82728; 82746; 82784; 82785; 82787; 82962; 83516; 83540; 83550; 83605; 83630; 83735; 85025; 85027; 85045; 85610; 85652; 86036; 86037; 86140; 86225; 86235; 86480; 86671; 86850; 86900; 86901; 86920; 86922; 87177; 87209; 87493; 87506; 88305; 97802; 99285; J7030; J7040; J7050; J7120; A4216; J0744; J2405; J2916

== ENCOUNTER → 2024-06-25 | Outpatient (CLI) | payer MEDICARE, SELFPAY ==
[2024-06-25 09:57] LABS: Absolute Neutrophil Count 7.3 X10^3/uL (2.0-7.7); Basophil# 0.02 X10^3/uL; Basophil% 0.2 % (0-1); Eosinophil# 0.06 X10^3/uL; Eosinophils% 0.7 % (0-5); Hematocrit 32.5 % (40-54); Hemoglobin 10.6 g/dL (13.0-16.5); Lymphocyte % 10.3 % (19-41); Mean Corp Hgb Conc 32.6 g/dL (32-36); Mean Corpuscular Hgb 28.4 pg (27.0-32.0); Mean Corpuscular Volume 87.1 fL (80-94); Mean Platelet Vol. 8.2 fl (6.2-12.0); Monocyte% 3.4 % (0-10); NRBC Flagged by Analyzer 0 % (0-5); Neutrophil # 7.33 X10^3/uL (2.7-7.7); Neutrophil % 83.9 % (47-70); Platelet Count 217 K/mm3 (150-450); RBC Distribution Width CV 13.4 % (11.6-14.6); RBC Distribution Width SD 41.3 fl (35.1-43.9); Red Blood Count 3.73 M/mm3 (4.6-6.2); White Blood Count 8.7 K/mm3 (4.4-11.0)
== END | disposition home or self-care (01) ==
LOC: LAB 09:45
PROVIDERS: PCP Family Medicine; Referring Provider Student in an Organized Health Care Education/Training Program; Visit Provider Student in an Organized Health Care Education/Training Program
DX: D64.9 Anemia, unspecified (principal)
CPT/HCPCS: 36415; 85025

== ENCOUNTER 2024-07-11 10:44 | Inpatient (IN) | payer MEDICARE, SELFPAY ==
[2024-07-11] VITALS (11 sets, daily range): BP systolic 82–136; BP diastolic 56–79; PULSE 81–107; RESP 16–20; TEMP 34.1–36.7; O2SAT 94–100; BMI 21.6; BMI 22.6
--- NOTE | 2024-07-11 11:16 | EKG12_ITS ---
Test Reason : SOB/GI BLEED Blood Pressure : */* mmHG Vent. Rate : 95 BPM Atrial Rate : 95 BPM P-R Int : 150 ms QRS Dur : 82 ms QT Int : 380 ms P-R-T Axes : 35 51 57 degrees QTcB Int : 477 ms Normal sinus rhythm Normal ECG Confirmed by MICHAELA BOO, GERONIMO ([id number]), school photograph editor JENNIFER LOPEZ ([id number]) on 07/14/2024 6:41:39 AM Referred By: Confirmed By: GERONIMO JENNINGS MD
--- NOTE | 2024-07-11 11:19 | EX.ED.DYSGE1 ---
HPI History of Present Illness Chief Complaint: GI Bleed Informant: patient Narrative Narrative: 74-year-old male presenting to the emergency room with weakness diarrhea blood in stool and dyspnea. Patient states for the past couple days he has had a cough and some shortness of breath. He feels globally weak and states that he had a colonoscopy at the beginning of the month and has been having black tarry stools since. Review of the chart shows that he has been diagnosed with severe ulcerative colitis and also recently diagnosed with C. difficile colitis. He took his last dose of oral vancomycin this morning. He states he also finished a recent course of prednisone. He was coming to the hospital today for an infusion and noted that he had to stop several times walking from his vehicle into the hospital. He was noted to be hypotensive for triage. He feels shaky and cold. He denies any abdominal pain. [facility] Medical History Irritable bowel Restless legs Diabetes GERD (gastroesophageal reflux disease) GI bleed Ulcerative colitis Alcohol abuse Arthritis Former smoker High cholesterol Diverticulitis Home Medications ?Medication ?Instructions ?Recorded ?Last Taken ?Type baclofen 10 mg tablet 10 mg PO TID pain 02/25/21 02/25/21 07:00 History etodolac 400 mg tablet 400 mg PO BID inflammation 02/25/21 06/18/24 History mesalamine 500 mg capsule,extended 500 mg PO BID pain/inflammation 02/25/21 06/18/24 History release (Pentasa) albuterol sulfate 90 mcg/actuation 1 inh inhalation Q6H PRN shortness 02/26/21 Unknown Rx aerosol inhaler of breath or wheezing #8.5 grams diphenoxylate-atropine 2.5 1 tab PO 4X/DAY 06/19/24 06/19/24 History mg-0.025 mg tablet pregabalin 150 mg capsule 150 mg PO BID 06/19/24 06/18/24 History simvastatin 20 mg tablet 20 mg PO QHS 06/19/24 06/18/24 History triamcinolone acetonide 0.5 % 1 applic topical BID 06/19/24 Unknown History topical cream Allergy/AdvReac Type Severity Reaction Status Date / Time ibuprofen AdvReac Upset Verified 07/11/24 11:14 Stomach Family History Mother COPD (chronic obstructive pulmonary disease) Father Myocardial infarction Social History Smoking Status: Former smoker alcohol intake: current alcohol intake frequency: 3 or more drinks per day Alcohol type: beer details: Patient states that he drinks a 12 pack/day of 12 ounce beers substance use type: does not use ROS ROS ED ROS Narrative Generalized weakness Constitutional Constitutional ED: Reports chills; Denies fever(s) or weight loss Eyes Eyes: Denies change in vision or diplopia ENT ENT ED: Denies ear pain, rhinorrhea or sore throat Cardiovascular Cardiovascular: Denies chest pain, orthopnea, palpitations or racing heartbeat Respiratory/Chest Respiratory/Chest: Reports cough, dyspnea and dyspnea on exertion; Denies orthopnea Gastrointestinal Gastrointestinal: Reports diarrhea and other Details: Patient notes diarrhea about every hour and describes it as black ; Denies abdominal pain, nausea or vomiting Genitourinary Genitourinary ED: Reports other Details: Decreased urination ; Denies dysuria, hematuria or urinary frequency Musculoskeletal Musculoskeletal: Denies arthralgias or myalgias Integumentary Denies abscess or rash Neurologic Neurologic: Denies headache(s) or weakness Psychiatric Psychiatric: Denies anxiety, depression, suicidal ideation or suicidal thoughts Endocrine Endocrinology: Denies polydipsia, polyphagia or polyuria Allergic/Immunologic Allergic/Immunologic ED: Denies mouth swelling, tongue swelling or urticaria EXAM Physical Exam Const Vital Signs: 07/11/24 10:45 07/11/24 11:04 07/11/24 11:12 Temperature 98.1 F 98.1 F Temperature Source Oral Oral Pulse Rate 107 H 96 Respiratory Rate 20 H 18 Respiratory Effort Normal Non-Labored Respiratory Depth Normal Respiratory Pattern Tachypnea Blood Pressure 82/62 L 96/71 Blood Pressure Mean 68 79 Pulse Ox 94 100 Oxygen Delivery Method Room Air Room Air Room Air 07/11/24 11:45 Temperature Temperature Source Pulse Rate 89 Respiratory Rate 18 Respiratory Effort Respiratory Depth Respiratory Pattern Blood Pressure 109/79 Blood Pressure Mean 89 Pulse Ox 99 Oxygen Delivery Method Room Air Positive well nourished, well developed and unkempt General Appearance ED: unkempt, well developed and NAD HEENT Reports normocephalic, head/scalp atraumatic and moist mucous membranes Eyes PERRL and EOMs intact bilaterally General Eye ED: Yes pale conjunctiva Neck no lymphadenopathy, supple and no JVD Resp normal respiratory effort and clear to auscultation bilaterally Cardio regular rate, regular rhythm and no murmurs Rate: tachycardic GI normal to inspection, nondistended, normoactive bowel sounds and non-tender Palpation: soft Back/Spine no CVA tenderness and normal ROM Extremity normal to inspection General Extremety ED: Negative for edema General Extremity: Negative for edema Neuro oriented x3 and CN's II-XII intact bilaterally Sensorium / Orientation: alert Motor Exam: strength 5/5 throughout Psych mental status grossly normal Appearance: unkempt Mood & Affect: Negative for depressed or tearful Skin no rashes or lesions noted and no wounds MDM MDM MDM Narrative Medical decision making narrative: Differential diagnosis includes anemia anemia requiring transfusion dehydration acute kidney injury lecture light abnormalities colitis dehydration Patient's EKG is sinus at a rate of 95. His hypotension was responsive to IV fluids. Noted hemoglobin 13.2 white count 10.5 platelet count of 398. Lactic acid is significantly elevated at 5.5. This is most likely hypovolemic in nature and not septic based on his history and examination. Creatinine is significantly elevated today 1.53 CO2 20 sodium 129 glucose 215. Lipase of 24. His troponin is 11. My independent interpretation of the chest x-ray is no acute process. Given the ROLO the elevated lactic acid is hypotension I feel the patient would be best served being admitted to the hospital. I will contact the hospitalist. History & Record Review Discussion w/independent historian: Patient Additional record(s) reviewed:: Prior ED visit and Prior labs Lab Data Attestation: I reviewed the patient's lab results. Labs: Laboratory Results - last 24 hr 07/11/24 07/11/24 11:01 11:20 WBC 10.5 RBC 4.82 Hgb 13.2 Hct 42.3 MCV 87.8 MCH 27.4 MCHC 31.2 L RDW Std Deviation 43.9 RDW Coeff of Janice 13.8 Plt Count 398 MPV 8.4 Immature Gran % (Auto) 1.000 H Neut % (Auto) 71.7 H Lymph % (Auto) 22.4 [place]aus % (Auto) 2.9 Eos % (Auto) 1.4 Baso % (Auto) 0.6 Absolute Neuts (auto) 7.5 Absolute Lymphs (auto) 2.36 Nucleated RBC % 0 PT 14.3 INR 1.1 APTT 28.5 Sodium 129 L Potassium 4.5 Chloride 96 L Carbon Dioxide 20.0 L Anion Gap 14 BUN 13 Creatinine 1.53 H Estim Creat Clear Calc 41.72 Est GFR (MDRD) Af Amer 58 L Est GFR (MDRD) Non-Af 48 L BUN/Creatinine Ratio 8.5 L Glucose 215 H Lactic Acid 5.5 H* Calcium 9.2 Total Bilirubin 0.60 Direct Bilirubin 0.19 AST 14 L ALT 24 Alkaline Phosphatase 116 Troponin I High Sens 11 Total Protein 8.6 H Albumin 2.0 L Globulin 6.6 H Lipase 24 Radiography Diagnostic Testing: Clinical Impression(s) from Imaging Studies Chest X-Ray 07/11/24 11:26 IMPRESSION: Degenerative changes, as described above. No demonstrated acute cardiopulmonary process. Electronically Signed: Mehul Villanueva MD at 11:46 EST Reading Location ID and State: [id number] [place] [address] , Service support , EKG Initial EKG: Attestation: I personally reviewed and interpreted this EKG as follows: Comments: Normal sinus rhythm ventricular rate of 95 bpm Management Discussion w/another healthcare provider: Hospitalist (Dr Hall) Discharge Plan Dx/Rx/DC Orders Clinical Impression: Ulcerative colitis, Orthostatic hypotension, Acute dehydration, Acute kidney injury, Elevated lactic acid level Disposition Disposition: [facility]
--- NOTE | 2024-07-11 11:26 | RAD_ITS ---
STUDY: X-RAY CHEST REASON FOR EXAM: Male, 74 years old. Cough TECHNIQUE: Single AP portable view of the chest. COMPARISON: February 25, 2021 FINDINGS: There is no focal infiltrate. There is stable small, 0.5 cm, nodular density in the left lower lung. There is no demonstrated pleural abnormality. Normal size heart. Normal mediastinum and drew. Normal visualized pulmonary arteries. There is atherosclerotic calcification of the aortic arch. There are diffuse degenerative changes of the visualized thoracic spine. There is degenerative osteoarthritis of the bilateral shoulders. There is no demonstrated abnormality of the visualized soft tissue structures of the upper abdomen. RAD/Chest 1 View (Portable) IMPRESSION: Degenerative changes, as described above. No demonstrated acute cardiopulmonary process. Electronically Signed: Mehul Villanueva MD at 11:46 EST ,
[2024-07-11 11:28] LABS: Absolute Lymphocyte Count 2.36 X10^3/uL (0.83-4.51); Absolute Neutrophil Count 7.5 X10^3/uL (2.0-7.7); Basophil# 0.06 X10^3/uL; Basophil% 0.6 % (0-1); Eosinophil# 0.15 X10^3/uL; Eosinophils% 1.4 % (0-5); Hematocrit 42.3 % (40-54); Hemoglobin 13.2 g/dL (13.0-16.5); Lymphocyte # 2.36 X10^3/ul (0.83-4.51); Lymphocyte % 22.4 % (19-41); Mean Corp Hgb Conc 31.2 g/dL (32-36); Mean Corpuscular Hgb 27.4 pg (27.0-32.0); Mean Corpuscular Volume 87.8 fL (80-94); Mean Platelet Vol. 8.4 fl (6.2-12.0); Monocyte# 0.31 X10^3/uL; Monocyte% 2.9 % (0-10); NRBC Flagged by Analyzer 0 % (0-5); Neutrophil # 7.54 X10^3/uL (2.7-7.7); Neutrophil % 71.7 % (47-70); POSITIVE MORPHOLOGY YES; Platelet Count 398 K/mm3 (150-450); RBC Distribution Width CV 13.8 % (11.6-14.6); RBC Distribution Width SD 43.9 fl (35.1-43.9); Red Blood Count 4.82 M/mm3 (4.6-6.2); White Blood Count 10.5 K/mm3 (4.4-11.0)
[2024-07-11 11:37] LABS: International Normalized Ratio 1.1; Prothrombin Time (Protime)PT. 14.3 SECONDS (11.7-14.9)
[2024-07-11 11:38] LABS: Partial Thromboplast Time 28.5 Seconds (24.1-36.2)
[2024-07-11] MEDS: 0.9% Normal Saline (1000mL) 1,000 ML 1000 ML IV (11:40)
[2024-07-11 11:49] LABS: AST(SGOT) 14 U/L (15-37); Alanine Aminotransfer ALT/SGPT 24 U/L (16-61); Alkaline Phosphatase 116 U/L (45-117); Anion Gap 14 (5-15); BUN 13 mg/dL (7-18); BUN/Creat Ratio 8.5 RATIO (10-20); Bilirubin, Direct 0.19 mg/dL (0.00-0.30); Calcium,Total 9.2 mg/dL (8.5-10.1); Chloride 96 mmol/L (98-107); Creatinine, Serum 1.53 mg/dL (0.70-1.30); EST Glomerular Filtration Rate 48 mL/min (>60); Est Glom Filt Rate - Afr Amer 58 mL/min (>60); Estimated Creatinine Clearance 41.72 ml/min; Globulin 6.6 g/dL (2.2-4.2); Glucose 215 mg/dL (74-106); Lipase 24 U/L (13-75); Potassium 4.5 mmol/L (3.5-5.1); Protein, Total 8.6 g/dL (6.4-8.2); Sodium Level 129 mmol/L (136-145); Troponin-I HS 11 pg/mL (3.0-78.0)
[2024-07-11 12:02] LABS: Lactic Acid 5.5 mmol/L (0.4-1.9)
[2024-07-11 12:03] LABS: Differential Indicated SCAN CRITERIA MET
[2024-07-11] MEDS: 0.9% Normal Saline (1000mL) 1,000 ML 999 ML IV (12:24)
--- NOTE | 2024-07-11 13:16 | ED.RN ---
per dr estrada, pt is not considered to be septic shock- hypovolemic. no need for sepsis fluid resuscitation
[2024-07-11 13:24] LABS: Magnesium 2.4 mg/dL (1.6-2.6); Phosphorus 5.7 mg/dL (2.5-4.9)
--- NOTE | 2024-07-11 13:33 | HP.PCM.HOS_ITS ---
HPI - General General Date of Admission: 07/11/24 Date of Service: 07/11/24 Chief Complaint: Diarrhea, generalized weakness, hypovolemia for last couple days. HPI Narrative NISHA MARTINS, is a 74 M was discharged on 06/23/2024 after treatment for similar problem due to ulcerative colitis exacerbation and C. difficile came back with diarrhea 6-7 times, liquid large amount, some stool mixed with blood for last couple days. Patient feels very weak and states he was short of breath and walking today while coming to ED. He felt little warm for last couple days but denies any shivering chills and did not measure temperature. He completed a large dose of oral vancomycin in the morning and recent course of prednisone. Rest is described in assessment and plan. In ED he was found hypotensive, BP 82/62, heart rate 107, tachypneic 20/min but not hypoxic. Lactic acidosis 5.5. Patient was rested with IV fluid bolus. BP is improving. Patient is being admitted for further management [facility] Medical History Irritable bowel Restless legs Diabetes GERD (gastroesophageal reflux disease) GI bleed Ulcerative colitis Alcohol abuse Arthritis Former smoker High cholesterol Diverticulitis Home Medications ?Medication ?Instructions ?Recorded ?Last Taken ?Type baclofen 10 mg tablet 10 mg PO TID pain 02/25/21 02/25/21 07:00 History etodolac 400 mg tablet 400 mg PO BID inflammation 02/25/21 06/18/24 History mesalamine 500 mg capsule,extended 500 mg PO BID pain/inflammation 02/25/21 06/18/24 History release (Pentasa) albuterol sulfate 90 mcg/actuation 1 inh inhalation Q6H PRN shortness 02/26/21 Unknown Rx aerosol inhaler of breath or wheezing #8.5 grams diphenoxylate-atropine 2.5 1 tab PO 4X/DAY 06/19/24 06/19/24 History mg-0.025 mg tablet pregabalin 150 mg capsule 150 mg PO BID 06/19/24 06/18/24 History simvastatin 20 mg tablet 20 mg PO QHS 06/19/24 06/18/24 History triamcinolone acetonide 0.5 % 1 applic topical BID 06/19/24 Unknown History topical cream Allergy/AdvReac Type Severity Reaction Status Date / Time ibuprofen AdvReac Upset Verified 07/11/24 11:14 Stomach Family History Mother COPD (chronic obstructive pulmonary disease) Father Myocardial infarction Social History Smoking Status: Former smoker alcohol intake: current alcohol intake frequency: 3 or more drinks per day Alcohol type: beer details: Patient states that he drinks a 12 pack/day of 12 ounce beers substance use type: does not use ROS ROS Narrative Constitutional: Reports fatigue and weakness. No fever. HEENT: Reports systems reviewed and no addt'l complaints, except as documented Respiratory/Chest: Mild nonspecific chronic cough. Acute shortness of breath due to hypovolemia/hypotension. CVS: No chest pain pressure tightness. Gastrointestinal: Denies abdominal pain. Denies coffee ground emesis, hematemesis or vomiting. Genitourinary: Dark-colored urine. Denies burning urination or new urinary tract symptoms Musculoskeletal: Denies acute joint pain or limited range of motion. No acute injury Neurologic: Denies seizure-like symptoms. skin: No ulcer. No rash Endocrinology: Reports systems reviewed and no addt'l complaints, except as documented Hematologic/Lymphatic: Reports systems reviewed and no addt'l complaints, except as documented Rest 14 ROS are negative except as mentioned in HPI Vital Signs Vital Signs Vital Signs: 07/11/24 10:45 07/11/24 11:04 07/11/24 11:12 Temperature 98.1 F 98.1 F Temperature Source Oral Oral Pulse Rate 107 H 96 Respiratory Rate 20 H 18 Respiratory Effort Normal Non-Labored Respiratory Depth Normal Respiratory Pattern Tachypnea Blood Pressure 82/62 L 96/71 Blood Pressure Mean 68 79 Pulse Ox 94 100 Oxygen Delivery Method Room Air Room Air Room Air 07/11/24 11:45 07/11/24 13:00 07/11/24 13:17 Temperature 97.5 F L Temperature Source Pulse Rate 89 91 91 Respiratory Rate 18 18 18 Respiratory Effort Respiratory Depth Respiratory Pattern Blood Pressure 109/79 96/65 96/65 Blood Pressure Mean 89 75 75 Pulse Ox 99 97 97 Oxygen Delivery Method Room Air Weight Weight: 151 lb 3.794 oz Body Mass Index (BMI) 21.6 Results Lab / Micro Data 07/11/24 11:01 07/11/24 11:01 Labs: Laboratory Results - last 24 hr 07/11/24 11:01: WBC 10.5, RBC 4.82, Hgb 13.2, Hct 42.3, MCV 87.8, MCH 27.4, MCHC 31.2 L, RDW Std Deviation 43.9, RDW Coeff of Janice 13.8, Plt Count 398, MPV 8.4, I mmature Gran % (Auto) 1.000 H, Neut % (Auto) 71.7 H, Lymph % (Auto) 22.4, Wood % (Auto) 2.9, Eos % (Auto) 1.4, Baso % (Auto) 0.6, Absolute Neuts (auto) 7.5, Absolute Lymphs (auto) 2.36, Nucleated RBC % 0, PT 14.3, INR 1.1, APTT 28.5, S odium 129 L, Potassium 4.5, Chloride 96 L, Carbon Dioxide 20.0 L, Anion Gap 14, BUN 13, Creatinine 1.53 H, Estim Creat Clear Calc 41.72, Est GFR (MDRD) Af Amer 58 L, Est GFR (MDRD) Non-Af 48 L, BUN/Creatinine Ratio 8.5 L, Glucose 215 H, Calcium 9.2, Phosphorus 5.7 H, Magnesium 2.4, Total Bilirubin 0.60, Direct Bilirubin 0.19, AST 14 L, ALT 24, Alkaline Phosphatase 116, Troponin I High Sens 11, Total Protein 8.6 H, Albumin 2.0 L, Globulin 6.6 H, Lipase 24 07/11/24 11:20: Lactic Acid 5.5 H* Micro: Microbiology 07/11/24 11:23 Mucosa - Nose SARS-CoV-2, Influenza & RSV (PCR) - Final Imaging Radiology Impression Chest X-Ray 07/11/24 11:26 IMPRESSION: Degenerative changes, as described above. No demonstrated acute cardiopulmonary process. Electronically Signed: Mehul Villanueva MD at 11:46 EST , Assessment & Plan Assessment/Plan (1) Orthostatic hypotension: (2) Acute kidney injury: (3) Ulcerative colitis: PLAN: Plan This is 74-year-old gentleman is being admitted for hypotension due to hypovolemia from diarrhea. 1. Hypotension from hypovolemia with lactic acidosis: Patient is being admitted in PCU. Was given 1 L bolus in ED and 1 L Ringer lactate bolus ordered and then NS +20 mEq of KCl 150 mL/h. BP is improving, last 109/79. Heart rate 89/min. Repeat lactic acid. 2. Ulcerative colitis exacerbation with persistent diarrhea with mild upon decreasing: Stool for C. difficile and enteric pathogen panel ordered. No leukocytosis. IV Solu-Medrol ordered. Patient was seen in GI clinic on 06/25/2024 and was prescribed Remicade infusion. Discussed with the GI office and insurance has not approved or has date of appointment for infusion. Will try to get infusion after discharge. 3. ROLO due to hypovolemia, prerenal etiology and mild hyponatremia: BUNs/creatinine 13/1.53, BUN/creatinine 8.5 but patient has low BUN due to low muscle mass. IV fluid normal saline. Monitor kidney function. Sodium is 129. Chloride 96, bicarb 20, anion gap 14. 4. Anemia of chronic disease from ulcerative colitis: H&H 13.2/42.3%. During previous admission, his hemoglobin was around 9.6/27%. Monitor CBC. 5. DVT prophylaxis: High risk due to ulcerative colitis. Heparin 5000 units subcutaneous Q12 hourly as patient high risk of bleeding from ulcerative colitis. Microbiology Past 72 Hours 07/11/24 11:23 Mucosa - Nose SARS-CoV-2, Influenza & RSV (PCR) - Final Laboratory Results 07/11/24 11:01: WBC 10.5, RBC 4.82, Hgb 13.2, Hct 42.3, MCV 87.8, MCH 27.4, MCHC 31.2 L, RDW Std Deviation 43.9, RDW Coeff of Janice 13.8, Plt Count 398, MPV 8.4, I mmature Gran % (Auto) 1.000 H, Neut % (Auto) 71.7 H, Lymph % (Auto) 22.4, Wood % (Auto) 2.9, Eos % (Auto) 1.4, Baso % (Auto) 0.6, Absolute Neuts (auto) 7.5, Absolute Lymphs (auto) 2.36, Nucleated RBC % 0, PT 14.3, INR 1.1, APTT 28.5, S odium 129 L, Potassium 4.5, Chloride 96 L, Carbon Dioxide 20.0 L, Anion Gap 14, BUN 13, Creatinine 1.53 H, Estim Creat Clear Calc 41.72, Est GFR (MDRD) Af Amer 58 L, Est GFR (MDRD) Non-Af 48 L, BUN/Creatinine Ratio 8.5 L, Glucose 215 H, Calcium 9.2, Phosphorus 5.7 H, Magnesium 2.4, Total Bilirubin 0.60, Direct Bilirubin 0.19, AST 14 L, ALT 24, Alkaline Phosphatase 116, Troponin I High Sens 11, Total Protein 8.6 H, Albumin 2.0 L, Globulin 6.6 H, Lipase 24 07/11/24 11:20: Lactic Acid 5.5 H* Living will/advanced directive/end of life care: Patient does not have living will or advanced directive. He does not have daycare power of erisa attorney for health but his is next of kin. After discussion of benefits/risks procedures involved with full code, DNR CC arrest and DNR CC, the patient opted for DNR CC arrest with no intubation Patient doesn't want artificial life support including intubation, tube feed, ventilator and/chest compression, central venous catheter, vasopressor and DC shock if needed Total time spent in [id number] encounter in discussion of advanced directive 17 minutes. Charges/Coding Visit Charges Inpatient E&M: 16733 Subs Hosp L3 Procedures Hospitalists Procedures: 17276 Advncd Care Plan 30 Min
[2024-07-11 15:04] LABS: Color, Urine Yellow (Yellow); Glucose, Dipstick 50 mg/dl (Normal); Ketone-Dipstick Negative (Negative); Leukocyte Esterase-Dipstick 25 /ul (Negative); Nitrite-Dipstick Negative (Negative); Occult Blood-Urine 10 /ul (Negative); Protein-Dipstick 30 mg/dl (Negative); Urine Bilirubin Dipstick Negative (Negative); Urine Clarity Sl. Cloudy (Clear); Urine Urobilinogen Normal (Normal)
[2024-07-11 15:17] LABS: Hyaline Cast 0-5 SEEN /lpf (0-5); Mucous, Urine 2+ /hpf (<or=2+)
[2024-07-11 15:18] LABS: Red Blood Cells-Urine 0-5 SEEN /hpf (0-5); Squamous Epithelial Cells - UA 0-5 SEEN /hpf (0-5)
[2024-07-11 15:19] LABS: Bacteria 1+ /hpf (None Seen); White Blood Cells 5-10 SEEN /hpf (0-5)
[2024-07-11 15:24] LABS: Reflex Lactate? Y
[2024-07-11] MEDS: Lactated Ringers 1,000 ML 1000 ML IV (16:05)
--- NOTE | 2024-07-11 16:27 | CASEMGMT ---
CM assessment: SW verified that all information given on 06/20/24 assessment is still accurate. Patient did state that he has given up smoking and chewing due to his recent medical concerns. Patients goal is to return home. Disposition plan: CM to follow for any discharge planning needs that may arise. Yesenia Layne, CORPORATE SECURITY MANAGER, WATCHMAKING TEACHER
[2024-07-11] MEDS: MethylPREDNISolone 125 MG/2 ML Vial 60 MG IV ×2 (16:28→22:47)
[2024-07-11] MEDS: Baclofen 10 MG Tablet 5 MG PO ×2 (16:29→22:48)
[2024-07-11] MEDS: 0.9 % NaCl (Sterile) Posiflush 10 mL IV (16:29)
[2024-07-11 16:38] LABS: Lactic Acid 2.2 mmol/L (0.4-1.9)
[2024-07-11] MEDS: KCL 20MEQ in 0.9% NS 20 MEQ/1,000 ML IV.SOLN. 150 MEQ IV (17:24)
--- NOTE | 2024-07-11 17:28 | CASEMGMT ---
Addendum entered by José Luis Cho 07/12/24 10:26: Per Dr Hall, he is not sure what infusion pt was coming in to get @ [facility] yesterday, as he (Dr Hall) was informed insurance has not approved this yet and Dr Hall also states he was not on the schedule @ OP infusion. Dr Hall states he anticipates pt will be medically ready to discharge on Sunday. He also states, if insurance approval would be received for the Remicade, and if OP infusion would be able to schedule him on Sunday for this, then he would discharge pt Sunday with the plan to go straight over the the infusion center after discharge for the infusion. Message left for SYDNI PRESTON to f/u on this on Sunday. Addendum entered by José Luis Cho 07/11/24 17:52: Pt also + C-Diff during prior admission. Original Note: RN KARY readmission note: Index admission: Admit 06/19 w/bloody diarrhea. Hx Ulcerative colitis. Pt had colonoscopy during index admission, showing severe ulcerative pancolitis. Discharged home on 06/23 w/Rx for prednisone and vanco. Current admission: Admit 07/11 w/hypovolemia and ROLO. Since prior admission, pt saw CAT SCAN TECH, Brigitte, for Dr Penny 06/25, prescribed IV Remicade and to continue w/prednisone. Per H/P, pt was on his way in to [facility] to get an infusion as an OP but was so weak he had to stop several times while walking from his vehicle, so went to ER instead. Dr Dr Hall H/P, insurance has not approved or has date of appt for infusion and will try to get infusion after discharge. SYDNI PRESTON to room to discuss readmission and for discharge planning. Pt states he did take prednisone and vanco as prescribed @ discharge last admission and has completed them. He did go to GI appt, as stated above, but states did not schedule an appt w/PCP, Dr Reji Levin, stating, he wasn't aware he was supposed to. SYDNI PRESTON made him aware to f/u with PCP after discharge from the hospital this admission. He voices understanding. Pt states he really prefers to discharge home from the hospital. Aware PT/OT will work w/him while he is in the hospital and make recommendations. PT/OT evals pending. SYDNI PRESTON to follow. Plan: TBD by course of treatment and progress w/therapy. Pt prefers to discharge home when medically ready. Flaquita STEPHENSN RN CM
[2024-07-11] MEDS: Glucerna Shake 120 ML LIQUID PO ×2 (18:39→22:48)
[2024-07-11] MEDS: Heparin Injection (Vial) 5,000 UNIT/ML VIAL 5000 UNIT SC (22:47)
[2024-07-11] MEDS: MESALAMINE 400 MG CAPSULE.DR PO (22:47)
[2024-07-11] MEDS: Atorvastatin Calcium 10 MG Tablet PO (22:48)
[2024-07-12 04:58] VITALS: BP 92/65; PULSE 62; RESP 16; TEMP 36.4; O2SAT 98
[2024-07-12 07:07] LABS: Absolute Lymphocyte Count 0.62 X10^3/uL (0.83-4.51); Absolute Neutrophil Count 2.5 X10^3/uL (2.0-7.7); Hematocrit 25.6 % (40-54); Hemoglobin 8.2 g/dL (13.0-16.5); Lymphocyte # 0.62 X10^3/ul (0.83-4.51); Lymphocyte % 19.5 % (19-41); Mean Corpuscular Hgb 27.5 pg (27.0-32.0); Mean Corpuscular Volume 85.9 fL (80-94); Mean Platelet Vol. 8.5 fl (6.2-12.0); Monocyte# 0.08 X10^3/uL; Monocyte% 2.5 % (0-10); NRBC Flagged by Analyzer 0 % (0-5); Neutrophil # 2.45 X10^3/uL (2.7-7.7); Neutrophil % 77.1 % (47-70); POSITIVE MORPHOLOGY YES; Platelet Count 198 K/mm3 (150-450); RBC Distribution Width CV 13.6 % (11.6-14.6); RBC Distribution Width SD 42.4 fl (35.1-43.9); Red Blood Count 2.98 M/mm3 (4.6-6.2); White Blood Count 3.2 K/mm3 (4.4-11.0)
[2024-07-12 07:18] LABS: Differential Indicated SCAN CRITERIA MET
[2024-07-12 07:58] LABS: Anion Gap 6 (5-15); BUN 7 mg/dL (7-18); BUN/Creat Ratio 11.3 RATIO (10-20); Calcium,Total 7.7 mg/dL (8.5-10.1); Chloride 107 mmol/L (98-107); Creatinine, Serum 0.62 mg/dL (0.70-1.30); EST Glomerular Filtration Rate 136 mL/min (>60); Est Glom Filt Rate - Afr Amer 164 mL/min (>60); Estimated Creatinine Clearance 83.05 ml/min; Glucose 182 mg/dL (74-106); Potassium 4.2 mmol/L (3.5-5.1); Sodium Level 136 mmol/L (136-145)
[2024-07-12 08:17] LABS: Differential Comment SCANNED; Platelet Estimate ADEQUATE (ADEQ); Red Cell Morphology NORM C+C NORMAL (NORM C&C)
[2024-07-12 08:36] VITALS: BP 98/68; PULSE 69; RESP 20; TEMP 36.4; O2SAT 98
[2024-07-12 08:40] VITALS: O2SAT 98
[2024-07-12] MEDS: Heparin Injection (Vial) 5,000 UNIT/ML VIAL 5000 UNIT SC (08:53)
[2024-07-12] MEDS: Glucerna Shake 120 ML LIQUID PO ×4 (08:53→22:43)
[2024-07-12] MEDS: MESALAMINE 400 MG CAPSULE.DR PO ×2 (08:53→22:36)
--- NOTE | 2024-07-12 09:29 | PCM.PN.HOSP ---
Reason for Visit Reason for Visit: Diagnoses Orthostatic hypotension (07/11/24) Ulcerative colitis, unspecified, without complications (07/11/24) Acute kidney failure, unspecified (07/11/24) Objective Data Objective Data Vital Signs: Vital Signs Temp Pulse Resp BP Pulse Ox O2 Del Method 97.6 F L 69 20 H 98/68 98 Room Air 07/12/24 08:36 07/12/24 08:36 07/12/24 08:36 07/12/24 08:36 07/12/24 08:40 07/12/24 08:40 Oxygen Delivery Method Room Air Weight: 157 lb 6.561 oz Body Mass Index (BMI) 22.6 Intake & Output: Intake and Output for Last 24 Hours 07/10/24 07/11/24 07/12/24 23:59 23:59 23:59 Intake Total 3000 / 3000 1000 / 1000 Balance 3000 / 3000 1000 / 1000 Medical Nutrition Assessment Dietitian: Malnutrition Criteria Met Start: 07/11/24 16:03 Freq: Status: Active Protocol: Document 07/11/24 16:03 RMA (Rec: 07/11/24 16:03 RMA [id number]) Nutrition Malnutrition Evidence of Malnutrition Exists Yes Malnutrition (severe): Acute Illness/Injury Evidenced By Suboptimal Energy Intake ( Severe),Weight Loss (Severe) Clinical Problem Acute Disease or Injury Related Malnutrition Etiology Severe protein-calorie malnutrition in the context of acute illness related to altered GI function and inadequate oral intake Signs/Symptoms as evidenced by 5% unintentional weight loss in less than 1 month and PO meeting less than 50% estimated nutrition needs x 2 weeks Status Active Problem Recommendation Dietitian Recommendations/Changes Recommend advance diet as tolerated to Transitional with goal of Carbohydrate- Controlled Diet as able. Will add 240mL ensure clear w/ breakfast and dinner trays. D/C ensure clear as diet advanced to solid food. Lab / Micro Data 07/12/24 06:32 07/12/24 06:32 Labs: Laboratory Results - last 24 hr 07/11/24 11:01: WBC 10.5, RBC 4.82, Hgb 13.2, Hct 42.3, MCV 87.8, MCH 27.4, MCHC 31.2 L, RDW Std Deviation 43.9, RDW Coeff of Janice 13.8, Plt Count 398, MPV 8.4, Immature Gran % (Auto) 1.000 H, Neut % (Auto) 71.7 H, Lymph % (Auto) 22.4, [place] % (Auto) 2.9, Eos % (Auto) 1.4, Baso % (Auto) 0.6, Absolute Neuts (auto) 7.5, Absolute Lymphs (auto) 2.36, Nucleated RBC % 0, PT 14.3, INR 1.1, APTT 28.5, Sodium 129 L, Potassium 4.5, Chloride 96 L, Carbon Dioxide 20.0 L, Anion Gap 14, BUN 13, Creatinine 1.53 H, Estim Creat Clear Calc 41.72, Est GFR (MDRD) Af Amer 58 L, Est GFR (MDRD) Non-Af 48 L, BUN/Creatinine Ratio 8.5 L, Glucose 215 H, Calcium 9.2, Phosphorus 5.7 H, Magnesium 2.4, Total Bilirubin 0.60, Direct Bilirubin 0.19, AST 14 L, ALT 24, Alkaline Phosphatase 116, Troponin I High Sens 11, Total Protein 8.6 H, Albumin 2.0 L, Globulin 6.6 H, Lipase 24 07/11/24 11:20: Lactic Acid 5.5 H* 07/11/24 14:20: Urine Color Yellow, Urine Clarity Sl. Cloudy, Urine pH 6.0, Ur Specific [place] 1.020, Urine Protein 30 H, Urine Glucose (UA) 50 H, Urine Ketones Negative, Urine Occult Blood 10 H, Urine Nitrite Negative, Urine Bilirubin Negative, Urine Urobilinogen Normal, Ur Leukocyte Esterase 25 H, Urine RBC 0-5 SEEN, Urine WBC 5-10 SEEN, Ur Squamous Epith Cells 0-5 SEEN, Urine Bacteria 1+, Hyaline Casts 0-5 SEEN, Urine Mucus 2+ 07/11/24 15:45: Lactic Acid 2.2 H* 07/12/24 06:32: WBC 3.2 L, RBC 2.98 L, Hgb 8.2 L, Hct 25.6 L, MCV 85.9, MCH 27.5, MCHC 32.0, RDW Std Deviation 42.4, RDW Coeff of Janice 13.6, Plt Count 198, MPV 8.5, Immature Gran % (Auto) 0.900, Neut % (Auto) 77.1 H, Lymph % (Auto) 19.5, [place] % (Auto) 2.5, Eos % (Auto) 0.0, Baso % (Auto) 0.0, Absolute Neuts (auto) 2.5, Absolute Lymphs (auto) 0.62 L, Nucleated RBC % 0, Differential Comment SCANNED, Platelet Estimate ADEQUATE, RBC Morphology NORM C+C, Sodium 136, Potassium 4.2, Chloride 107, Carbon Dioxide 22.0, Anion Gap 6, BUN 7, Creatinine 0.62 L, Estim Creat Clear Calc 83.05, Est GFR (MDRD) Af Amer 164, Est GFR (MDRD) Non-Af 136, BUN/Creatinine Ratio 11.3, Glucose 182 H, Calcium 7.7 L Micro: Microbiology 07/11/24 14:20 Stool Stool Lactoferrin - Final 07/11/24 14:20 Stool Enteric Bacteriology - Final 07/11/24 14:20 Stool Clostridioides difficile (PCR) - Final 07/11/24 14:20 Stool Stool Occult Blood (ARNALDO) - Final Occult Blood Positive 07/11/24 11:23 Mucosa - Nose SARS-CoV-2, Influenza & RSV (PCR) - Final Radiography Diagnostic Testing: Radiology Impression Chest X-Ray 07/11/24 11:26 IMPRESSION: Degenerative changes, as described above. No demonstrated acute cardiopulmonary process. Electronically Signed: Mehul Villanueva MD at 11:46 EST , Physical Exam Narrative Seen and examined. Overall patient is feeling better. Diarrhea, getting better, consistency of the BM getting more semisolid and frequency less. No abdominal pain. Physical exam General: Alert, Oriented x3, Cooperative. BMI 22.6 kg/m? HEENT: Atraumatic, PERRLA, EOMI, Normocephalic Oral: Oral mucosa is dry. No Gingival or Mucosal Lesions/ Ulcerations Neck: Supple, No JVD, Negative Carotid Bruits Chest wall/Lungs: Air entry diminished in bilateral lung bases. No crepitation/rhonchi Cardiovascular: Regular rate, Regular Rhythm, Normal S1, Normal S2, No M/G/R Abdomen: Bowel Sounds Present, Soft, Non Tender, Non-Distended : No dysuria. No renal angle tenderness. No suprapubic tenderness. Extremities: No edema, Capillary Refill Less than 3 Seconds Skin: No rashes, No breakdown Musculoskeletal: No Tenderness to Palpation of Joints or Extremities, loss of subcutaneous fat and decreased muscle bulk. Neurological: Cranial nerves II-XII grossly intact, DTR 2+/4. No acute focal neurological deficit. Psych/Mental Status: Flat affect Assessment & Plan Assessment/Plan (1) Orthostatic hypotension: (2) Acute kidney injury: (3) Ulcerative colitis: PLAN: Plan This is 74-year-old gentleman is being admitted for hypotension due to hypovolemia from diarrhea. 1. Hypotension from hypovolemia with lactic acidosis: Patient is being admitted in PCU. Was given 1 L bolus in ED and 1 L Ringer lactate bolus ordered and then NS +20 mEq of KCl 150 mL/h. BP is improving, last 109/79. Heart rate 89/min. Repeat lactic acid. 07/12: Patient did not have focus of infection and has known history of ulcerative colitis causing diarrhea, hypotension and hypoperfusion leading to lactic acidosis. Sepsis was ruled out yesterday therefore was admitted in PCU. Hold for SBP less than 130 mmHg resolved but BP still low 93/63. Continue IV fluid NS +20 mEq KCl at 150 mL/h. Monitor BM 2. Ulcerative colitis exacerbation with persistent diarrhea with mild upon decreasing: Stool for C. difficile and enteric pathogen panel ordered. No leukocytosis. IV Solu-Medrol ordered. Patient was seen in GI clinic on 06/25/2024 and was prescribed Remicade infusion. Discussed with the GI office and insurance has not approved or has date of appointment for infusion. Will try to get infusion after discharge. 07/12: Enteric bacterial ID panel, C. difficile and lactoferrin negative. Stool for occult blood positive. Patient started on Flagyl for ulcerative colitis exacerbation. Solu-Medrol decreased to 20 mg IV every 8 hourly. Pantoprazole ordered as patient having stool for occult blood probably from ulcerative colitis but for GI prophylaxis from Solu-Medrol. 3. ROLO due to hypovolemia, prerenal etiology and mild hyponatremia: BUNs/creatinine 13/1.53, BUN/creatinine 8.5 but patient has low BUN due to low muscle mass. IV fluid normal saline. Monitor kidney function. Sodium is 129. Chloride 96, bicarb 20, anion gap 14. 07/12: BUNs/creatinine 7/0.62. ROLO resolved. 4. Anemia of chronic disease from ulcerative colitis: H&H 13.2/42.3%. During previous admission, his hemoglobin was around 9.6/27%. Monitor CBC. 07/12: H&H dropped to 8.2/25.6%. Yesterday H&H as mentioned above was his previous probably hemoconcentrated. 5. DVT prophylaxis: High risk due to ulcerative colitis. Heparin 5000 units subcutaneous Q12 hourly as patient high risk of bleeding from ulcerative colitis. 07/12: H&H dropped. Stool for occult blood positive. Discontinue heparin subcu. SCDs ordered. Microbiology Past 72 Hours 07/11/24 14:20 Stool Stool Lactoferrin - Final 07/11/24 14:20 Stool Enteric Bacteriology - Final 07/11/24 14:20 Stool Clostridioides difficile (PCR) - Final 07/11/24 14:20 Stool Stool Occult Blood (ARNALDO) - Final Occult Blood Positive 07/11/24 11:23 Mucosa - Nose SARS-CoV-2, Influenza & RSV (PCR) - Final Laboratory Results 07/11/24 14:20: Urine Color Yellow, Urine Clarity Sl. Cloudy, Urine pH 6.0, Ur Specific [place] 1.020, Urine Protein 30 H, Urine Glucose (UA) 50 H, Urine Ketones Negative, Urine Occult Blood 10 H, Urine Nitrite Negative, Urine Bilirubin Negative, Urine Urobilinogen Normal, Ur Leukocyte Esterase 25 H, Urine RBC 0-5 SEEN, Urine WBC 5-10 SEEN, Ur Squamous Epith Cells 0-5 SEEN, Urine Bacteria 1+, Hyaline Casts 0-5 SEEN, Urine Mucus 2+ 07/11/24 15:45: Lactic Acid 2.2 H* 07/12/24 06:32: WBC 3.2 L, RBC 2.98 L, Hgb 8.2 L, Hct 25.6 L, MCV 85.9, MCH 27.5, MCHC 32.0, RDW Std Deviation 42.4, RDW Coeff of Janice 13.6, Plt Count 198, MPV 8.5, Immature Gran % (Auto) 0.900, Neut % (Auto) 77.1 H, Lymph % (Auto) 19.5, [place] % (Auto) 2.5, Eos % (Auto) 0.0, Baso % (Auto) 0.0, Absolute Neuts (auto) 2.5, Absolute Lymphs (auto) 0.62 L, Nucleated RBC % 0, Differential Comment SCANNED, Platelet Estimate ADEQUATE, RBC Morphology NORM C+C, Sodium 136, Potassium 4.2, Chloride 107, Carbon Dioxide 22.0, Anion Gap 6, BUN 7, Creatinine 0.62 L, Estim Creat Clear Calc 83.05, Est GFR (MDRD) Af Amer 164, Est GFR (MDRD) Non-Af 136, BUN/Creatinine Ratio 11.3, Glucose 182 H, Calcium 7.7 L Living will/advanced directive/end of life care: Patient does not have living will or advanced directive. He does not have daycare power of commercial attorney for health but his is next of kin. After discussion of benefits/risks procedures involved with full code, DNR CC arrest and DNR CC, the patient opted for DNR CC arrest with no intubation Patient doesn't want artificial life support including intubation, tube feed, ventilator and/chest compression, central venous catheter, vasopressor and DC shock if needed Charges/Coding Visit Charges Inpatient E&M: 95349 Subs Hosp L2
[2024-07-12] MEDS: 0.9% Saline Lock 10 ML Syringe IV ×2 (10:07→15:12)
[2024-07-12] MEDS: KCL 20MEQ in 0.9% NS 20 MEQ/1,000 ML IV.SOLN. 150 MEQ IV ×2 (10:07→17:25)
[2024-07-12 12:06] VITALS: BP 93/63; PULSE 67; RESP 18; TEMP 36.4; O2SAT 96
[2024-07-12] MEDS: Baclofen 10 MG Tablet 5 MG PO ×2 (13:40→22:37)
[2024-07-12] MEDS: Pantoprazole Sodium 40 MG Tablet PO (15:11)
[2024-07-12] MEDS: metroNIDAZOLE 500 MG Tablet PO ×2 (15:11→17:34)
[2024-07-12 17:37] VITALS: BP 100/61; PULSE 71; RESP 18; TEMP 36.6; O2SAT 97
[2024-07-12] MEDS: proCHLORPERazine 10 MG/2 ML Vial 5 MG IV (22:26)
[2024-07-12] MEDS: 0.9 % NaCl (Sterile) Posiflush 10 mL IV ×2 (22:30→22:41)
[2024-07-12 22:34] VITALS: BP 115/65; PULSE 69; RESP 18; TEMP 36.4; O2SAT 96
[2024-07-12] MEDS: Menthol/Lanolin/Calamine/Znox 113 GM Tube 1 APPLIC TOPICAL (22:35)
[2024-07-12] MEDS: Atorvastatin Calcium 10 MG Tablet PO (22:38)
[2024-07-12] MEDS: Insulin Lispro 100 UNIT/ML INSULN.PEN SC (23:30)
[2024-07-12 23:37] LABS: Bedside Glucose 185 mg/dL (74-106)
[2024-07-13] VITALS (8 sets, daily range): BP systolic 97–104; BP diastolic 59–69; PULSE 65–76; RESP 15–18; TEMP 36.4–37.1; O2SAT 94–98
[2024-07-13] MEDS: Baclofen 10 MG Tablet 5 MG PO ×3 (05:41→21:30)
[2024-07-13] MEDS: 0.9% Saline Lock 10 ML Syringe IV ×3 (05:45→21:48)
[2024-07-13 06:35] LABS: Absolute Lymphocyte Count 0.65 X10^3/uL (0.83-4.51); Absolute Neutrophil Count 2.9 X10^3/uL (2.0-7.7); Hematocrit 24.7 % (40-54); Lymphocyte # 0.65 X10^3/ul (0.83-4.51); Lymphocyte % 17.4 % (19-41); Mean Corp Hgb Conc 32.4 g/dL (32-36); Mean Corpuscular Hgb 27.8 pg (27.0-32.0); Mean Corpuscular Volume 85.8 fL (80-94); Mean Platelet Vol. 8.5 fl (6.2-12.0); Monocyte# 0.09 X10^3/uL; Monocyte% 2.4 % (0-10); NRBC Flagged by Analyzer 0 % (0-5); Neutrophil # 2.94 X10^3/uL (2.7-7.7); Neutrophil % 78.9 % (47-70); POSITIVE MORPHOLOGY YES; Platelet Count 218 K/mm3 (150-450); RBC Distribution Width CV 13.3 % (11.6-14.6); RBC Distribution Width SD 41.3 fl (35.1-43.9); Red Blood Count 2.88 M/mm3 (4.6-6.2); White Blood Count 3.7 K/mm3 (4.4-11.0)
[2024-07-13 06:41] LABS: Differential Indicated SCAN CRITERIA MET
[2024-07-13 07:06] LABS: Anion Gap 4 (5-15); BUN 8 mg/dL (7-18); BUN/Creat Ratio 13.6 RATIO (10-20); Calcium,Total 8.2 mg/dL (8.5-10.1); Chloride 107 mmol/L (98-107); Creatinine, Serum 0.59 mg/dL (0.70-1.30); EST Glomerular Filtration Rate 143 mL/min (>60); Est Glom Filt Rate - Afr Amer 174 mL/min (>60); Estimated Creatinine Clearance 83.05 ml/min; Glucose 163 mg/dL (74-106); Potassium 4.2 mmol/L (3.5-5.1); Sodium Level 134 mmol/L (136-145)
[2024-07-13 07:11] LABS: Bedside Glucose 149 mg/dL (74-106)
[2024-07-13 08:15] LABS: Differential Comment SCANNED; Platelet Estimate ADEQUATE (ADEQ); Red Cell Morphology NORM C+C NORMAL (NORM C&C); Vacuolated Cells 1+
[2024-07-13] MEDS: Pantoprazole Sodium 40 MG Tablet PO (08:37)
[2024-07-13] MEDS: MESALAMINE 400 MG CAPSULE.DR PO ×2 (08:37→21:29)
[2024-07-13] MEDS: Glucerna Shake 120 ML LIQUID PO ×3 (08:37→21:37)
[2024-07-13] MEDS: metroNIDAZOLE 500 MG Tablet PO ×3 (08:37→16:20)
[2024-07-13] MEDS: Menthol/Lanolin/Calamine/Znox 113 GM Tube 1 APPLIC TOPICAL ×2 (08:41→21:31)
[2024-07-13 11:28] LABS: Bedside Glucose 259 mg/dL (74-106)
[2024-07-13] MEDS: Insulin Lispro 100 UNIT/ML INSULN.PEN SC ×3 (11:55→21:31)
--- NOTE | 2024-07-13 15:47 | PCM.PN.HOSP ---
Reason for Visit Reason for Visit: Diagnoses Orthostatic hypotension (07/11/24) Ulcerative colitis, unspecified, without complications (07/11/24) Acute kidney failure, unspecified (07/11/24) Objective Data Objective Data Vital Signs: Vital Signs Temp Pulse Resp BP Pulse Ox O2 Del Method 98.7 F 75 15 97/61 97 Room Air 07/13/24 10:41 07/13/24 10:41 07/13/24 10:41 07/13/24 10:41 07/13/24 10:41 07/13/24 10:41 Oxygen Delivery Method Room Air Weight: 157 lb 6.561 oz Body Mass Index (BMI) 22.6 Intake & Output: Intake and Output for Last 24 Hours 07/11/24 07/12/24 07/13/24 23:59 23:59 23:59 Intake Total 3000 / 3000 2920 / 2920 1000 / 1000 Output Total 552 / 552 700 / 700 Balance 3000 / 3000 2368 / 2368 300 / 300 Medical Nutrition Assessment Dietitian: Malnutrition Criteria Met Start: 07/11/24 16:03 Freq: Status: Active Protocol: Document 07/11/24 16:03 RMA (Rec: 07/11/24 16:03 RMA [id number]) Nutrition Malnutrition Evidence of Malnutrition Exists Yes Malnutrition (severe): Acute Illness/Injury Evidenced By Suboptimal Energy Intake ( Severe),Weight Loss (Severe) Clinical Problem Acute Disease or Injury Related Malnutrition Etiology Severe protein-calorie malnutrition in the context of acute illness related to altered GI function and inadequate oral intake Signs/Symptoms as evidenced by 5% unintentional weight loss in less than 1 month and PO meeting less than 50% estimated nutrition needs x 2 weeks Status Active Problem Recommendation Dietitian Recommendations/Changes Recommend advance diet as tolerated to Transitional with goal of Carbohydrate- Controlled Diet as able. Will add 240mL ensure clear w/ breakfast and dinner trays. D/C ensure clear as diet advanced to solid food. Lab / Micro Data 07/13/24 05:43 07/13/24 05:43 Labs: Laboratory Results - last 24 hr 07/12/24 22:24: POC Glucose 185 H 07/13/24 05:43: WBC 3.7 L, RBC 2.88 L, Hgb 8.0 L, Hct 24.7 L, MCV 85.8, MCH 27.8, MCHC 32.4, RDW Std Deviation 41.3, RDW Coeff of Janice 13.3, Plt Count 218, MPV 8.5, Immature Gran % (Auto) 1.300 H, Neut % (Auto) 78.9 H, Lymph % (Auto) 17.4 L, [place] % (Auto) 2.4, Eos % (Auto) 0.0, Baso % (Auto) 0.0, Absolute Neuts (auto) 2.9, Absolute Lymphs (auto) 0.65 L, Nucleated RBC % 0, Differential Comment SCANNED, Toxic Vacuolation 1+, Platelet Estimate ADEQUATE, RBC Morphology NORM C+C, Sodium 134 L, Potassium 4.2, Chloride 107, Carbon Dioxide 24.0, Anion Gap 4 L, BUN 8, Creatinine 0.59 L, Estim Creat Clear Calc 83.05, Est GFR (MDRD) Af Amer 174, Est GFR (MDRD) Non-Af 143, BUN/Creatinine Ratio 13.6, Glucose 163 H, Calcium 8.2 L 07/13/24 06:40: POC Glucose 149 H 07/13/24 11:07: POC Glucose 259 H Micro: Microbiology 07/11/24 14:20 Stool Stool Lactoferrin - Final 07/11/24 14:20 Stool Enteric Bacteriology - Final 07/11/24 14:20 Stool Clostridioides difficile (PCR) - Final 07/11/24 14:20 Stool Stool Occult Blood (ARNALDO) - Final Occult Blood Positive 07/11/24 11:23 Mucosa - Nose SARS-CoV-2, Influenza & RSV (PCR) - Final Physical Exam Narrative Seen and examined. Overall patient is feeling better. Diarrhea, getting better, consistency of the BM is still liquid but with fecal matter but frequency is less. Had 1 bowel movements this morning. No abdominal pain. Patient stated he had vomiting yesterday and 1 today. Physical exam General: Alert, Oriented x3, Cooperative. BMI 22.6 kg/m? HEENT: Atraumatic, PERRLA, EOMI, Normocephalic Oral: Oral mucosa is dry. No Gingival or Mucosal Lesions/ Ulcerations Neck: Supple, No JVD, Negative Carotid Bruits Chest wall/Lungs: Air entry diminished in bilateral lung bases. No crepitation/rhonchi Cardiovascular: Regular rate, Regular Rhythm, Normal S1, Normal S2, No M/G/R Abdomen: Bowel Sounds Present, Soft, Non Tender, Non-Distended : No dysuria. No renal angle tenderness. No suprapubic tenderness. Extremities: No edema, Capillary Refill Less than 3 Seconds Skin: No rashes, No breakdown Musculoskeletal: No Tenderness to Palpation of Joints or Extremities, loss of subcutaneous fat and decreased muscle bulk. Neurological: Cranial nerves II-XII grossly intact, DTR 2+/4. No acute focal neurological deficit. Psych/Mental Status: Flat affect Assessment & Plan Assessment/Plan (1) Orthostatic hypotension: (2) Acute kidney injury: (3) Ulcerative colitis: PLAN: Plan This is 74-year-old gentleman is being admitted for hypotension due to hypovolemia from diarrhea. 1. Hypotension from hypovolemia with lactic acidosis: Patient is being admitted in PCU. Was given 1 L bolus in ED and 1 L Ringer lactate bolus ordered and then NS +20 mEq of KCl 150 mL/h. BP is improving, last 109/79. Heart rate 89/min. Repeat lactic acid. 07/12: Patient did not have focus of infection and has known history of ulcerative colitis causing diarrhea, hypotension and hypoperfusion leading to lactic acidosis. Sepsis was ruled out yesterday therefore was admitted in PCU. Hold for SBP less than 130 mmHg resolved but BP still low 93/63. Continue IV fluid NS +20 mEq KCl at 150 mL/h. Monitor BM 2. Ulcerative colitis exacerbation with persistent diarrhea with mild upon decreasing: Stool for C. difficile and enteric pathogen panel ordered. No leukocytosis. IV Solu-Medrol ordered. Patient was seen in GI clinic on 06/25/2024 and was prescribed Remicade infusion. Discussed with the GI office and insurance has not approved or has date of appointment for infusion. Will try to get infusion after discharge. 07/12: Enteric bacterial ID panel, C. difficile and lactoferrin negative. Stool for occult blood positive. Patient started on Flagyl for ulcerative colitis exacerbation. Solu-Medrol decreased to 20 mg IV every 8 hourly. Pantoprazole ordered as patient having stool for occult blood probably from ulcerative colitis but for GI prophylaxis from Solu-Medrol. 07/13: Patient is still having liquid bowel movement with some fecal matter. 3. ROLO due to hypovolemia, prerenal etiology and mild hyponatremia: BUNs/creatinine 13/1.53, BUN/creatinine 8.5 but patient has low BUN due to low muscle mass. IV fluid normal saline. Monitor kidney function. Sodium is 129. Chloride 96, bicarb 20, anion gap 14. 07/12: BUNs/creatinine 7/0.62. ROLO resolved. 4. Anemia of chronic disease from ulcerative colitis: H&H 13.2/42.3%. During previous admission, his hemoglobin was around 9.6/27%. Monitor CBC. 07/12: H&H dropped to 8.2/25.6%. Yesterday H&H as mentioned above was his previous probably hemoconcentrated. 07/13: H&H is still normal 8.0/25%. Mild leukopenia. 5. DVT prophylaxis: High risk due to ulcerative colitis. Heparin 5000 units subcutaneous Q12 hourly as patient high risk of bleeding from ulcerative colitis. 07/12: H&H dropped. Stool for occult blood positive. Discontinue heparin subcu. SCDs ordered. Living will/advanced directive/end of life care: Patient does not have living will or advanced directive. He does not have daycare power of deputy attorney general for health but his is next of kin. After discussion of benefits/risks procedures involved with full code, DNR CC arrest and DNR CC, the patient opted for DNR CC arrest with no intubation Patient doesn't want artificial life support including intubation, tube feed, ventilator and/chest compression, central venous catheter, vasopressor and DC shock if needed Microbiology Past 72 Hours 07/11/24 14:20 Stool Stool Lactoferrin - Final 07/11/24 14:20 Stool Enteric Bacteriology - Final 07/11/24 14:20 Stool Clostridioides difficile (PCR) - Final 07/11/24 14:20 Stool Stool Occult Blood (ARNALDO) - Final Occult Blood Positive 07/11/24 11:23 Mucosa - Nose SARS-CoV-2, Influenza & RSV (PCR) - Final Laboratory Results 07/12/24 22:24: POC Glucose 185 H 07/13/24 05:43: WBC 3.7 L, RBC 2.88 L, Hgb 8.0 L, Hct 24.7 L, MCV 85.8, MCH 27.8, MCHC 32.4, RDW Std Deviation 41.3, RDW Coeff of Janice 13.3, Plt Count 218, MPV 8.5, Immature Gran % (Auto) 1.300 H, Neut % (Auto) 78.9 H, Lymph % (Auto) 17.4 L, [place] % (Auto) 2.4, Eos % (Auto) 0.0, Baso % (Auto) 0.0, Absolute Neuts (auto) 2.9, Absolute Lymphs (auto) 0.65 L, Nucleated RBC % 0, Differential Comment SCANNED, Toxic Vacuolation 1+, Platelet Estimate ADEQUATE, RBC Morphology NORM C+C, Sodium 134 L, Potassium 4.2, Chloride 107, Carbon Dioxide 24.0, Anion Gap 4 L, BUN 8, Creatinine 0.59 L, Estim Creat Clear Calc 83.05, Est GFR (MDRD) Af Amer 174, Est GFR (MDRD) Non-Af 143, BUN/Creatinine Ratio 13.6, Glucose 163 H, Calcium 8.2 L 07/13/24 06:40: POC Glucose 149 H 07/13/24 11:07: POC Glucose 259 H Charges/Coding Visit Charges Inpatient E&M: 34581 Subs Hosp L2
[2024-07-13 16:39] LABS: Bedside Glucose 179 mg/dL (74-106)
[2024-07-13] MEDS: Atorvastatin Calcium 10 MG Tablet PO (21:29)
[2024-07-13 22:17] LABS: Bedside Glucose 256 mg/dL (74-106)
[2024-07-14] VITALS (9 sets, daily range): BP systolic 100–121; BP diastolic 64–80; PULSE 58–85; RESP 14–18; TEMP 36.3–36.7; O2SAT 94–99
[2024-07-14] MEDS: Baclofen 10 MG Tablet 5 MG PO ×3 (05:14→21:38)
[2024-07-14] MEDS: 0.9% Saline Lock 10 ML Syringe IV (05:16)
[2024-07-14] MEDS: Insulin Lispro 100 UNIT/ML INSULN.PEN SC ×4 (06:29→21:37)
[2024-07-14 07:09] LABS: Bedside Glucose 169 mg/dL (74-106)
[2024-07-14] MEDS: metroNIDAZOLE 500 MG Tablet PO ×3 (08:07→17:57)
[2024-07-14] MEDS: Pantoprazole Sodium 40 MG Tablet PO (08:07)
[2024-07-14 08:08] LABS: Absolute Lymphocyte Count 0.65 X10^3/uL (0.83-4.51); Absolute Neutrophil Count 4.1 X10^3/uL (2.0-7.7); Basophil# 0.02 X10^3/uL; Basophil% 0.4 % (0-1); Hematocrit 25.6 % (40-54); Hemoglobin 8.4 g/dL (13.0-16.5); Lymphocyte # 0.65 X10^3/ul (0.83-4.51); Lymphocyte % 12.9 % (19-41); Mean Corp Hgb Conc 32.8 g/dL (32-36); Mean Corpuscular Volume 85.3 fL (80-94); Mean Platelet Vol. 8.4 fl (6.2-12.0); Monocyte# 0.16 X10^3/uL; Monocyte% 3.2 % (0-10); NRBC Flagged by Analyzer 0 % (0-5); Neutrophil # 4.13 X10^3/uL (2.7-7.7); Neutrophil % 81.9 % (47-70); POSITIVE MORPHOLOGY YES; Platelet Count 229 K/mm3 (150-450); RBC Distribution Width CV 13.4 % (11.6-14.6); RBC Distribution Width SD 41.6 fl (35.1-43.9)
[2024-07-14] MEDS: Menthol/Lanolin/Calamine/Znox 113 GM Tube 1 APPLIC TOPICAL ×2 (08:08→21:36)
[2024-07-14] MEDS: MESALAMINE 400 MG CAPSULE.DR PO ×3 (08:08→21:36)
[2024-07-14] MEDS: Glucerna Shake 120 ML LIQUID PO ×4 (08:08→21:40)
[2024-07-14 08:16] LABS: Differential Indicated SCAN CRITERIA MET
[2024-07-14 08:51] LABS: Anion Gap 5 (5-15); BUN 10 mg/dL (7-18); Calcium,Total 8.1 mg/dL (8.5-10.1); Chloride 106 mmol/L (98-107); Creatinine, Serum 0.72 mg/dL (0.70-1.30); EST Glomerular Filtration Rate 115 mL/min (>60); Est Glom Filt Rate - Afr Amer 139 mL/min (>60); Estimated Creatinine Clearance 83.05 ml/min; Glucose 162 mg/dL (74-106); Potassium 3.9 mmol/L (3.5-5.1); Sodium Level 136 mmol/L (136-145)
--- NOTE | 2024-07-14 11:10 | CASEMGMT ---
SYDNI PRESTON asked by hospitalist to inquire about outpatient Remicade infusion that was started by [facility]. SYDNI PRESTON called [facility] to inquire about Remicade outpatient infusion setup. Per Clarisa, [facility] was working on setup but she had not had time to call [facility]. SYDNI PRESTON called [facility] and they are still awaiting insurance approval for medication which Tangela Jansen in [facility] assists with getting insurance approval. SYDNI PRESTON called Tangela, no answer, CM will attempt again later. SYDNI PRESTON called [facility] called and updated. SYDNI PRESTON updated hospitalist. CM will continue to follow this patient and plan for a safe discharge.
[2024-07-14 11:32] LABS: Bedside Glucose 367 mg/dL (74-106)
[2024-07-14] MEDS: Insulin Glargine-YFGN 100 UNIT/ML Pen 15 UNIT SC (13:35)
--- NOTE | 2024-07-14 15:12 | PCM.PN.HOSP ---
Reason for Visit Reason for Visit: Diagnoses Orthostatic hypotension (07/11/24) Ulcerative colitis, unspecified, without complications (07/11/24) Acute kidney failure, unspecified (07/11/24) Objective Data Objective Data Vital Signs: Vital Signs Temp Pulse Resp BP Pulse Ox O2 Del Method 98.1 F 85 17 113/80 94 Room Air 07/14/24 08:42 07/14/24 08:42 07/14/24 08:42 07/14/24 08:42 07/14/24 08:42 07/14/24 08:42 Oxygen Delivery Method Room Air Weight: 157 lb 6.561 oz Body Mass Index (BMI) 22.6 Intake & Output: Intake and Output for Last 24 Hours 07/12/24 07/13/24 07/14/24 23:59 23:59 23:59 Intake Total 2920 / 2920 1960 / 1960 Output Total 552 / 552 1350 / 1350 400 / 400 Balance 2368 / 2368 610 / 610 -400 / -400 Medical Nutrition Assessment Dietitian: Malnutrition Criteria Met Start: 07/11/24 16:03 Freq: Status: Active Protocol: Document 07/11/24 16:03 RMA (Rec: 07/11/24 16:03 RMA [id number]) Nutrition Malnutrition Evidence of Malnutrition Exists Yes Malnutrition (severe): Acute Illness/Injury Evidenced By Suboptimal Energy Intake ( Severe),Weight Loss (Severe) Clinical Problem Acute Disease or Injury Related Malnutrition Etiology Severe protein-calorie malnutrition in the context of acute illness related to altered GI function and inadequate oral intake Signs/Symptoms as evidenced by 5% unintentional weight loss in less than 1 month and PO meeting less than 50% estimated nutrition needs x 2 weeks Status Active Problem Recommendation Dietitian Recommendations/Changes Recommend advance diet as tolerated to Transitional with goal of Carbohydrate- Controlled Diet as able. Will add 240mL ensure clear w/ breakfast and dinner trays. D/C ensure clear as diet advanced to solid food. Lab / Micro Data 07/14/24 07:50 07/14/24 07:50 Labs: Laboratory Results - last 24 hr 07/13/24 16:19: POC Glucose 179 H 07/13/24 21:20: POC Glucose 256 H 07/14/24 06:28: POC Glucose 169 H 07/14/24 07:50: WBC 5.0, RBC 3.00 L, Hgb 8.4 L, Hct 25.6 L, MCV 85.3, MCH 28.0, MCHC 32.8, RDW Std Deviation 41.6, RDW Coeff of Janice 13.4, Plt Count 229, MPV 8.4, Immature Gran % (Auto) 1.600 H, Neut % (Auto) 81.9 H, Lymph % (Auto) 12.9 L, [place] % (Auto) 3.2, Eos % (Auto) 0.0, Baso % (Auto) 0.4, Absolute Neuts (auto) 4.1, Absolute Lymphs (auto) 0.65 L, Nucleated RBC % 0, Differential Comment , Sodium 136, Potassium 3.9, Chloride 106, Carbon Dioxide 25.0, Anion Gap 5, BUN 10, Creatinine 0.72, Estim Creat Clear Calc 83.05, Est GFR (MDRD) Af Amer 139, Est GFR (MDRD) Non-Af 115, BUN/Creatinine Ratio 14.0, Glucose 162 H, Calcium 8.1 L 07/14/24 11:01: POC Glucose 367 H Micro: Microbiology 07/11/24 14:20 Stool Stool Lactoferrin - Final 07/11/24 14:20 Stool Enteric Bacteriology - Final 07/11/24 14:20 Stool Clostridioides difficile (PCR) - Final 07/11/24 14:20 Stool Stool Occult Blood (ARNALDO) - Final Occult Blood Positive 07/11/24 11:23 Mucosa - Nose SARS-CoV-2, Influenza & RSV (PCR) - Final Physical Exam Narrative Seen and examined. Patient is still having diarrhea about 4 to 6/day, liquid with some fecal matter and bloodstained. No fever. No abdominal pain. Physical exam General: Alert, Oriented x3, Cooperative. BMI 22.6 kg/m? HEENT: Atraumatic, PERRLA, EOMI, Normocephalic Oral: Oral mucosa is dry. No Gingival or Mucosal Lesions/ Ulcerations Neck: Supple, No JVD, Negative Carotid Bruits Chest wall/Lungs: Air entry diminished in bilateral lung bases. No crepitation/rhonchi Cardiovascular: Regular rate, Regular Rhythm, Normal S1, Normal S2, No M/G/R Abdomen: Bowel Sounds Present, Soft, Non Tender, Non-Distended. Liquid BM on the diaper. : No dysuria. No renal angle tenderness. No suprapubic tenderness. Extremities: No edema, Capillary Refill Less than 3 Seconds Skin: No rashes, No breakdown Musculoskeletal: No Tenderness to Palpation of Joints or Extremities, loss of subcutaneous fat and decreased muscle bulk. Neurological: Cranial nerves II-XII grossly intact, DTR 2+/4. No acute focal neurological deficit. Psych/Mental Status: Flat affect Assessment & Plan Assessment/Plan (1) Orthostatic hypotension: (2) Acute kidney injury: (3) Ulcerative colitis: PLAN: Plan This is 74-year-old gentleman is being admitted for hypotension due to hypovolemia from diarrhea. 1. Hypotension from hypovolemia with lactic acidosis: Patient is being admitted in PCU. Was given 1 L bolus in ED and 1 L Ringer lactate bolus ordered and then NS +20 mEq of KCl 150 mL/h. BP is improving, last 109/79. Heart rate 89/min. Repeat lactic acid. 07/12: Patient did not have focus of infection and has known history of ulcerative colitis causing diarrhea, hypotension and hypoperfusion leading to lactic acidosis. Sepsis was ruled out yesterday therefore was admitted in PCU. Hold for SBP less than 130 mmHg resolved but BP still low 93/63. Continue IV fluid NS +20 mEq KCl at 150 mL/h. Monitor BM 2. Ulcerative colitis exacerbation with persistent diarrhea with mild upon decreasing: Stool for C. difficile and enteric pathogen panel ordered. No leukocytosis. IV Solu-Medrol ordered. Patient was seen in GI clinic on 06/25/2024 and was prescribed Remicade infusion. Discussed with the GI office and insurance has not approved or has date of appointment for infusion. Will try to get infusion after discharge. 07/12: Enteric bacterial ID panel, C. difficile and lactoferrin negative. Stool for occult blood positive. Patient started on Flagyl for ulcerative colitis exacerbation. Solu-Medrol decreased to 20 mg IV every 8 hourly. Pantoprazole ordered as patient having stool for occult blood probably from ulcerative colitis but for GI prophylaxis from Solu-Medrol. 07/13: Patient is still having liquid bowel movement with some fecal matter. 07/14: Discussed with Dr. Penny for other options. Patient has pancolitis UC and will not get better without TNF inhibitor. Remicade prior authorization is still pending from his insurance, discussed with GI office and director of casework services. In meantime, IV Solu-Medrol increased 60 mg every 6 hourly and mesalamine 3 times daily. Continue Flagyl. 3. ROLO due to hypovolemia, prerenal etiology and mild hyponatremia: BUNs/creatinine 13/1.53, BUN/creatinine 8.5 but patient has low BUN due to low muscle mass. IV fluid normal saline. Monitor kidney function. Sodium is 129. Chloride 96, bicarb 20, anion gap 14. 07/12: BUNs/creatinine 7/0.62. ROLO resolved. 4. Anemia of chronic disease from ulcerative colitis: H&H 13.2/42.3%. During previous admission, his hemoglobin was around 9.6/27%. Monitor CBC. 07/12: H&H dropped to 8.2/25.6%. Yesterday H&H as mentioned above was his previous probably hemoconcentrated. 07/13: H&H is still normal 8.0/25%. Mild leukopenia. 07/14: Hemoglobin is 8.4 g. 5. DVT prophylaxis: High risk due to ulcerative colitis. Heparin 5000 units subcutaneous Q12 hourly as patient high risk of bleeding from ulcerative colitis. 07/12: H&H dropped. Stool for occult blood positive. Discontinue heparin subcu. SCDs ordered. Living will/advanced directive/end of life care: Patient does not have living will or advanced directive. He does not have daycare power of sports attorney for health but his is next of kin. After discussion of benefits/risks procedures involved with full code, DNR CC arrest and DNR CC, the patient opted for DNR CC arrest with no intubation Patient doesn't want artificial life support including intubation, tube feed, ventilator and/chest compression, central venous catheter, vasopressor and DC shock if needed Microbiology Past 72 Hours 07/11/24 14:20 Stool Stool Lactoferrin - Final 07/11/24 14:20 Stool Enteric Bacteriology - Final 07/11/24 14:20 Stool Clostridioides difficile (PCR) - Final 07/11/24 14:20 Stool Stool Occult Blood (ARNALDO) - Final Occult Blood Positive 07/11/24 11:23 Mucosa - Nose SARS-CoV-2, Influenza & RSV (PCR) - Final Laboratory Results 07/12/24 22:24: POC Glucose 185 H 07/13/24 05:43: WBC 3.7 L, RBC 2.88 L, Hgb 8.0 L, Hct 24.7 L, MCV 85.8, MCH 27.8, MCHC 32.4, RDW Std Deviation 41.3, RDW Coeff of Janice 13.3, Plt Count 218, MPV 8.5, Immature Gran % (Auto) 1.300 H, Neut % (Auto) 78.9 H, Lymph % (Auto) 17.4 L, [place] % (Auto) 2.4, Eos % (Auto) 0.0, Baso % (Auto) 0.0, Absolute Neuts (auto) 2.9, Absolute Lymphs (auto) 0.65 L, Nucleated RBC % 0, Differential Comment SCANNED, Toxic Vacuolation 1+, Platelet Estimate ADEQUATE, RBC Morphology NORM C+C, Sodium 134 L, Potassium 4.2, Chloride 107, Carbon Dioxide 24.0, Anion Gap 4 L, BUN 8, Creatinine 0.59 L, Estim Creat Clear Calc 83.05, Est GFR (MDRD) Af Amer 174, Est GFR (MDRD) Non-Af 143, BUN/Creatinine Ratio 13.6, Glucose 163 H, Calcium 8.2 L 07/13/24 06:40: POC Glucose 149 H 07/13/24 11:07: POC Glucose 259 H Charges/Coding Visit Charges Inpatient E&M: 44365 Subs Hosp L2
[2024-07-14] MEDS: Insulin Lispro 100 UNIT/ML INSULN.PEN 10 UNIT SC (17:55)
[2024-07-14 18:20] LABS: Bedside Glucose 156 mg/dL (74-106)
--- NOTE | 2024-07-14 20:28 | CON.PCM.GI_ITS ---
HPI Consult Data Date of Consult: 07/14/24 HPI Narrative Reason for Consultation: Ulcerative colitis HPI Narrative: NISHA MARTINS, is [id number] male presenting to the emergency room with weakness diarrhea blood in stool and dyspnea. Patient states for the past couple days he has had a cough and some shortness of breath. He feels globally weak and states that he had a colonoscopy at the beginning of the month and has been having black tarry stools since. He has been diagnosed with severe ulcerative colitis and also recently diagnosed with C. difficile colitis. He took his last dose of oral vancomycin this morning. He states he also finished a recent course of prednisone. He was coming to the hospital today for an infusion and noted that he had to stop several times walking from his vehicle into the hospital. He was noted to be hypotensive for triage. He feels shaky and cold. He denies any abdominal pain. His repeat stool studies did not show any signs of infection. I was asked to see him in consultation due to the fact that he is not getting any better as per the patient on high-dose steroids. He was supposed to be started on a biologic for his severe ulcerative colitis as an outpatient but it is waiting approval. [facility] Medical History Hypertension Irritable bowel Restless legs Diabetes GERD (gastroesophageal reflux disease) GI bleed Ulcerative colitis Alcohol abuse Arthritis Former smoker High cholesterol Diverticulitis Home Medications ?Medication ?Instructions ?Recorded ?Last Taken ?Type baclofen 10 mg tablet 10 mg PO TID pain 02/25/21 02/25/21 07:00 History etodolac 400 mg tablet 400 mg PO BID inflammation 02/25/21 06/18/24 History mesalamine 500 mg capsule,extended 500 mg PO BID pain/inflammation 02/25/21 06/18/24 History release ([place]) albuterol sulfate 90 mcg/actuation 1 inh inhalation Q6H PRN shortness 02/26/21 Unknown Rx aerosol inhaler of breath or wheezing #8.5 grams diphenoxylate-atropine 2.5 1 tab PO 4X/DAY 06/19/24 06/19/24 History mg-0.025 mg tablet pregabalin 150 mg capsule 150 mg PO BID 06/19/24 06/18/24 History simvastatin 20 mg tablet 20 mg PO QHS 06/19/24 06/18/24 History triamcinolone acetonide 0.5 % 1 applic topical BID 06/19/24 Unknown History topical cream metformin 1,000 mg tablet 1,000 mg PO BID diabetes 07/12/24 07/11/24 History Allergy/AdvReac Type Severity Reaction Status Date / Time ibuprofen AdvReac Upset Verified 07/11/24 11:14 Stomach Family History Mother COPD (chronic obstructive pulmonary disease) Father Myocardial infarction Social History Smoking Status: Former smoker alcohol intake: current alcohol intake frequency: 3 or more drinks per day Alcohol type: beer details: Patient states that he drinks a 12 pack/day of 12 ounce beers substance use type: does not use ROS ROS Narrative Constitutional: Reports fatigue and weakness. No fever. HEENT: Reports systems reviewed and no addt'l complaints, except as documented Respiratory/Chest: Mild nonspecific chronic cough. Acute shortness of breath due to hypovolemia/hypotension. CVS: No chest pain pressure tightness. Gastrointestinal: Denies abdominal pain. Denies coffee ground emesis, hematemesis or vomiting. Genitourinary: Dark-colored urine. Denies burning urination or new urinary tract symptoms Musculoskeletal: Denies acute joint pain or limited range of motion. No acute injury Neurologic: Denies seizure-like symptoms. skin: No ulcer. No rash Endocrinology: Reports systems reviewed and no addt'l complaints, except as documented Hematologic/Lymphatic: Reports systems reviewed and no addt'l complaints, except as documented Rest 14 ROS are negative except as mentioned in HPI Physical Exam Const alert, oriented x3, no apparent distress and healthy appearing General Appearance: cooperative GI normal to inspection, nondistended, normoactive bowel sounds, soft to palpation, non-tender and non-distended Percussion: normal to percussion Rectal Exam: deferred Medical Records Data Medical Nutrition Assessment Dietitian: Malnutrition Criteria Met Start: 07/11/24 16:03 Freq: Status: Active Protocol: Document 07/14/24 15:33 SB (Rec: 07/14/24 15:33 SB [id number]) Nutrition Malnutrition Evidence of Malnutrition Exists Yes Malnutrition (severe): Acute Illness/Injury Evidenced By Suboptimal Energy Intake ( Severe),Weight Loss (Severe) Clinical Problem Acute Disease or Injury Related Malnutrition Etiology Severe protein-calorie malnutrition in the context of acute illness related to altered GI function and inadequate oral intake Signs/Symptoms as evidenced by 5% unintentional weight loss in less than 1 month and PO meeting less than 50% estimated nutrition needs x 2 weeks Status Active Problem Recommendation Dietitian Recommendations/Changes Recommend advanced diet as tolerated to Carbohydrate- Controlled Diet. Will d/c 240mL ensure clear w/ breakfast and dinner trays. Continue 120ml glucerna shakes 4x daily with medpass. Will order vanilla fortified pudding with dinner. Will monitor weight trends. Reviewed and approved by Marita Wu RD, LD. Lab / Micro Data 07/14/24 07:50 07/14/24 07:50 Labs: Laboratory Results - last 24 hr 07/13/24 21:20: POC Glucose 256 H 07/14/24 06:28: POC Glucose 169 H 07/14/24 07:50: WBC 5.0, RBC 3.00 L, Hgb 8.4 L, Hct 25.6 L, MCV 85.3, MCH 28.0, MCHC 32.8, RDW Std Deviation 41.6, RDW Coeff of Janice 13.4, Plt Count 229, MPV 8.4, Immature Gran % (Auto) 1.600 H, Neut % (Auto) 81.9 H, Lymph % (Auto) 12.9 L , [place] % (Auto) 3.2, Eos % (Auto) 0.0, Baso % (Auto) 0.4, Absolute Neuts (auto) 4.1, Absolute Lymphs (auto) 0.65 L, Nucleated RBC % 0, Differential Comment , Sodium 136, Potassium 3.9, Chloride 106, Carbon Dioxide 25.0, Anion Gap 5, BUN 10, Creatinine 0.72, Estim Creat Clear Calc 83.05, Est GFR (MDRD) Af Amer 139, Est GFR (MDRD) Non-Af 115, BUN/Creatinine Ratio 14.0, Glucose 162 H, Calcium 8.1 L 07/14/24 11:01: POC Glucose 367 H 07/14/24 17:52: POC Glucose 156 H Assessment & Plan Assessment/Plan (1) Blood in stool: PLAN: Plan 74-year-old gentleman with history of ulcerative colitis and diverticulitis and diverticulosis came to ED last month with chief complaint of bloody diarrhea for last couple weeks. He was admitted and treated for acute exacerbation of ulcerative colitis and concurrent C. difficile colitis. Patient did well on IV steroids and oral vancomycin. Currently is back in the hospital on IV Solu- Medrol but the patient is still not feeling well. Patient says that he quit smoking cigarettes about a year ago but chews tobacco. He has not had any previous imaging or inflammatory markers since being admitted back in a hospital. His last colonoscopy showed severe pancolitis with a Hernandez score 3. Laboratory tests should include a complete blood count, liver function tests, and a complete metabolic profile, including albumin levels and inflammatory markers such as C-reactive protein and erythrocyte sedimentation rate, which should all be performed almost daily. Stool samples were examined to check for infections such as?Clostridium difficile, which was negative. A score for stool frequency and the presence of blood in stool should be kept. A computed tomography scan of the abdomen s should be ordered to look for signs of of peritonitis or toxic megacolon.? If the CRP level and stool frequency do not drop by the third to fifth day, the patient is probably not going to respond to medical therapy. At this point, surgery may have to be considered. When a patient?s CRP level and stool frequency decrease, rescue medications can be administered. The rescue medications most commonly used are infusions of infliximab and cyclosporine. When treating a patient, it is important to determine how well the patient may respond to rescue medications by testing for albumin levels in the case of infliximab and testing for renal function and cholesterol levels in the case of cyclosporine. Patients who have low albumin levels tend to require higher doses of infliximab.? It would have to be discussed with social work if he can get these medicines as an inpatient. There are several absolute indications for surgery. If a patient has toxic megacolon, medical therapy will not work, so the patient should go straight to surgery. With toxic megacolon, the patient has severe inflammation, fever, a well-dilated colon (>8 cm, usually involving the transverse colon), a distended abdomen, and persistent tachycardia. Another indication for surgery is the presence of a perforation. Finally, if a patient is losing so much blood that it cannot be replaced fast enough, then the patient must go to surgery. The decision for surgery should not be delayed under these circumstances. I would recommend staying away from using nonsteroidal anti-inflammatory medications in patients who have IBD, as these drugs tend to make the disease worse. Long-term use of narcotics should also be avoided in patients with IBD. Acetaminophen usually tends to be good at controlling pain; Tramadol and anxiolytics have been found to be very useful in UC patients admitted to the hospital. Charges/Coding Visit Charges Inpatient E&M: 95415 Init Hosp L3
--- NOTE | 2024-07-14 20:41 | CT_ITS ---
EXAM: CT ABDOMEN AND PELVIS WITH INTRAVENOUS CONTRAST CLINICAL INDICATION: severe ulcerative colitis TECHNIQUE: Helically acquired images were obtained of the abdomen and pelvis with intravenous contrast. This CT exam was performed using one or more of the following dose reduction techniques: automated exposure control, adjustment of the mA and/or kV according to patient size, and/or use of iterative reconstruction technique. CONTRAST: IV 100mL [id number] RADIATION DOSE: CTDIvol = 12.13 mGy, DLP = 710.43 mGy-cm COMPARISON: No relevant prior studies available. FINDINGS: LOWER THORAX: Unremarkable. Lung bases are clear. No cardiomegaly. No significant pericardial effusion. ABDOMEN: LIVER: Unremarkable. Homogeneous. No focal mass. GALLBLADDER AND BILE DUCTS: Markedly abnormal gallbladder which is very contracted with a thick wall and pericholecystic edema. No intra- or extrahepatic biliary ductal dilation. PANCREAS: Unremarkable. No focal cystic or solid mass. SPLEEN: Unremarkable. Normal size without focal cystic or solid mass. ADRENALS: Unremarkable. No nodules. KIDNEYS AND URETERS: Unremarkable. Normal renal size and position. No hydronephrosis. No stones. STOMACH AND BOWEL: Evaluation of the GI tract is limited by absence of oral contrast. This is an especially important in addition in patients with known GI conditions such as ulcerative colitis. Patient''s tenderness. Cannot exclude stomach wall thickening. No dilated loops of bowel or evidence for obstruction. Cannot exclude segmental thickening of the lopez of the small bowel. Prominent thickening of the wall of the transverse colon, and rectosigmoid consistent with a history of ulcerative colitis. Appendix within normal limits. PELVIS: APPENDIX: No evidence of acute appendicitis. BLADDER: Diffuse thickening of the bladder wall with trabeculations and posterior small diverticuli. Finding consistent with chronic bladder outlet obstruction. REPRODUCTIVE: Unremarkable as visualized. No mass. ABDOMEN and PELVIS: INTRAPERITONEAL SPACE: Unremarkable. No ascites or other fluid collection. No free air. BONES/JOINTS: Degenerative changes throughout the spine. No suspicious lytic or blastic abnormality. SOFT TISSUES: Unremarkable VASCULATURE: Tortuous aorta with aneurysm and asymmetric intraluminal thrombus. Greatest diameter of approximately 3.9 cm. LYMPH NODES: Unremarkable. No enlarged lymph nodes. CT/Abdomen/Pelvis W IV Cont ONLY IMPRESSION: 1. Evaluation of GI tract is limited without oral contrast, especially in patients with known GI condition such as ulcerative colitis. Even so, it appears clear that the patient has prominent large bowel abnormalities. The right colon, just proximal to the hepatic flexure, begins to show bowel wall thickening. Diffusely abnormal transverse colon, descending colon and rectosigmoid with diffuse bowel wall thickening and pericolonic vascular and lymphatic distention. 2. Findings consistent with chronic bladder outlet obstruction most likely from prostate enlargement. 3. Abnormal gallbladder consistent with chronic cholecystitis. Acute cholecystitis is not excluded. 4. Tortuous fusiform aortic aneurysm with greatest diameter of 3.9 cm. Electronically Signed: Kong Hicks MD at 22:40 EST ,
[2024-07-14] MEDS: Atorvastatin Calcium 10 MG Tablet PO (21:38)
[2024-07-14 21:43] LABS: Erythrocyte Sedimentation Rate 33 mm/hr (0-20)
[2024-07-14 22:03] LABS: Bedside Glucose 169 mg/dL (74-106)
[2024-07-14 22:51] LABS: LDH 111 U/L (87-241)
[2024-07-15] VITALS (10 sets, daily range): BP systolic 101–118; BP diastolic 61–75; PULSE 60–98; RESP 13–16; TEMP 36.2–36.6; O2SAT 96–97
[2024-07-15 02:27] LABS: Reflex Lactate? Y
[2024-07-15 03:48] LABS: Absolute Lymphocyte Count 0.75 X10^3/uL (0.83-4.51); Absolute Neutrophil Count 4.4 X10^3/uL (2.0-7.7); Basophil# 0.01 X10^3/uL; Basophil% 0.2 % (0-1); Hematocrit 27.8 % (40-54); Lymphocyte # 0.75 X10^3/ul (0.83-4.51); Lymphocyte % 13.4 % (19-41); Mean Corp Hgb Conc 32.4 g/dL (32-36); Mean Corpuscular Hgb 27.9 pg (27.0-32.0); Mean Corpuscular Volume 86.1 fL (80-94); Mean Platelet Vol. 8.2 fl (6.2-12.0); Monocyte# 0.15 X10^3/uL; Monocyte% 2.7 % (0-10); NRBC Flagged by Analyzer 0.4 % (0-5); Neutrophil # 4.43 X10^3/uL (2.7-7.7); Neutrophil % 79.1 % (47-70); POSITIVE MORPHOLOGY YES; Platelet Count 253 K/mm3 (150-450); RBC Distribution Width CV 13.5 % (11.6-14.6); RBC Distribution Width SD 41.7 fl (35.1-43.9); Red Blood Count 3.23 M/mm3 (4.6-6.2); White Blood Count 5.6 K/mm3 (4.4-11.0)
[2024-07-15 04:06] LABS: Anion Gap 3 (5-15); BUN 11 mg/dL (7-18); BUN/Creat Ratio 15.3 RATIO (10-20); Calcium,Total 8.1 mg/dL (8.5-10.1); Chloride 104 mmol/L (98-107); Creatinine, Serum 0.72 mg/dL (0.70-1.30); EST Glomerular Filtration Rate 114 mL/min (>60); Est Glom Filt Rate - Afr Amer 138 mL/min (>60); Estimated Creatinine Clearance 83.05 ml/min; Glucose 171 mg/dL (74-106); Potassium 4.1 mmol/L (3.5-5.1); Sodium Level 134 mmol/L (136-145)
[2024-07-15 04:08] LABS: Lactic Acid 1.8 mmol/L (0.4-1.9)
[2024-07-15 04:15] LABS: Differential Indicated SCAN CRITERIA MET
[2024-07-15 05:10] LABS: Differential Comment SCANNED
[2024-07-15] MEDS: Baclofen 10 MG Tablet 5 MG PO ×3 (05:55→21:28)
[2024-07-15] MEDS: MESALAMINE 400 MG CAPSULE.DR PO ×3 (05:56→21:27)
[2024-07-15] MEDS: Pantoprazole Sodium 40 MG Tablet PO (07:45)
[2024-07-15] MEDS: Insulin Glargine-YFGN 100 UNIT/ML Pen 15 UNIT SC (07:45)
[2024-07-15] MEDS: metroNIDAZOLE 500 MG Tablet PO ×3 (07:45→16:30)
[2024-07-15] MEDS: Insulin Lispro 100 UNIT/ML INSULN.PEN SC ×4 (07:46→21:28)
[2024-07-15] MEDS: Insulin Lispro 100 UNIT/ML INSULN.PEN 10 UNIT SC ×3 (07:47→16:32)
[2024-07-15] MEDS: Menthol/Lanolin/Calamine/Znox 113 GM Tube 1 APPLIC TOPICAL ×2 (07:48→21:27)
[2024-07-15 08:15] LABS: Bedside Glucose 164 mg/dL (74-106)
[2024-07-15] MEDS: 0.9 % NaCl (Sterile) Posiflush 10 mL IV ×2 (11:06→16:31)
[2024-07-15 11:34] LABS: Bedside Glucose 394 mg/dL (74-106)
[2024-07-15] MEDS: Glucerna Shake 120 ML LIQUID PO ×3 (13:17→21:27)
[2024-07-15 16:58] LABS: Bedside Glucose 198 mg/dL (74-106)
--- NOTE | 2024-07-15 17:55 | PN.HOSP_ITS ---
Reason for Visit Reason for Visit: Diagnoses Orthostatic hypotension (07/11/24) Ulcerative colitis, unspecified, without complications (07/11/24) Melena (07/11/24) Acute kidney failure, unspecified (07/11/24) Objective Data Objective Data Vital Signs: Vital Signs Temp Pulse Resp BP Pulse Ox O2 Del Method 97.5 F L 66 15 109/64 96 Room Air 07/15/24 16:37 07/15/24 17:00 07/15/24 16:37 07/15/24 16:37 07/15/24 16:37 07/15/24 16:37 Oxygen Delivery Method Room Air Weight: 157 lb 6.561 oz Body Mass Index (BMI) 22.6 Intake & Output: Intake and Output for Last 24 Hours 07/13/24 07/14/24 07/15/24 23:59 23:59 23:59 Intake Total 1960 / 1960 Output Total 1350 / 1350 400 / 700 700 / 700 Balance 610 / 610 -400 / -700 -700 / -700 Medical Nutrition Assessment Dietitian: Malnutrition Criteria Met Start: 07/11/24 16:03 Freq: Status: Active Protocol: Document 07/14/24 15:33 SB (Rec: 07/14/24 15:33 SB [id number]) Nutrition Malnutrition Evidence of Malnutrition Exists Yes Malnutrition (severe): Acute Illness/Injury Evidenced By Suboptimal Energy Intake ( Severe),Weight Loss (Severe) Clinical Problem Acute Disease or Injury Related Malnutrition Etiology Severe protein-calorie malnutrition in the context of acute illness related to altered GI function and inadequate oral intake Signs/Symptoms as evidenced by 5% unintentional weight loss in less than 1 month and PO meeting less than 50% estimated nutrition needs x 2 weeks Status Active Problem Recommendation Dietitian Recommendations/Changes Recommend advanced diet as tolerated to Carbohydrate- Controlled Diet. Will d/c 240mL ensure clear w/ breakfast and dinner trays. Continue 120ml glucerna shakes 4x daily with medpass. Will order vanilla fortified pudding with dinner. Will monitor weight trends. Reviewed and approved by Marita Wu RD, LD. Lab / Micro Data 07/15/24 03:32 07/15/24 03:32 Labs: Laboratory Results - last 24 hr 07/14/24 17:52: POC Glucose 156 H 07/14/24 20:41: ESR 33 H 07/14/24 21:33: POC Glucose 169 H 07/14/24 22:21: Lactic Acid 2.0, Lactate Dehydrogenase 111, C-React Prot Ext Range 13.70 H 07/15/24 03:32: WBC 5.6, RBC 3.23 L, Hgb 9.0 L, Hct 27.8 L, MCV 86.1, MCH 27.9, MCHC 32.4, RDW Std Deviation 41.7, RDW Coeff of Janice 13.5, Plt Count 253, MPV 8.2, Immature Gran % (Auto) 4.600 H, Neut % (Auto) 79.1 H, Lymph % (Auto) 13.4 L , [place] % (Auto) 2.7, Eos % (Auto) 0.0, Baso % (Auto) 0.2, Absolute Neuts (auto) 4.4, Absolute Lymphs (auto) 0.75 L, Nucleated RBC % 0.4, Differential Comment SCANNED, Sodium 134 L, Potassium 4.1, Chloride 104, Carbon Dioxide 28.0, Anion Gap 3 L, BUN 11, Creatinine 0.72, Estim Creat Clear Calc 83.05, Est GFR (MDRD) Af Amer 138, Est GFR (MDRD) Non-Af 114, BUN/Creatinine Ratio 15.3, Glucose 171 H , Lactic Acid 1.8, Calcium 8.1 L 07/15/24 07:45: POC Glucose 164 H 07/15/24 11:09: POC Glucose 394 H 07/15/24 16:29: POC Glucose 198 H Micro: Microbiology 07/11/24 14:20 Stool Stool Lactoferrin - Final 07/11/24 14:20 Stool Enteric Bacteriology - Final 07/11/24 14:20 Stool Clostridioides difficile (PCR) - Final 07/11/24 14:20 Stool Stool Occult Blood (ARNALDO) - Final Occult Blood Positive 07/11/24 11:23 Mucosa - Nose SARS-CoV-2, Influenza & RSV (PCR) - Final Radiography Diagnostic Testing: Radiology Impression Abdomen/Pelvis CT 07/14/24 20:41 IMPRESSION: 1. Evaluation of GI tract is limited without oral contrast, especially in patients with known GI condition such as ulcerative colitis. Even so, it appears clear that the patient has prominent large bowel abnormalities. The right colon, just proximal to the hepatic flexure, begins to show bowel wall thickening. Diffusely abnormal transverse colon, descending colon and rectosigmoid with diffuse bowel wall thickening and pericolonic vascular and lymphatic distention. 2. Findings consistent with chronic bladder outlet obstruction most likely from prostate enlargement. 3. Abnormal gallbladder consistent with chronic cholecystitis. Acute cholecystitis is not excluded. 4. Tortuous fusiform aortic aneurysm with greatest diameter of 3.9 cm. Electronically Signed: Kong Hicks MD at 22:40 EST , Physical Exam Narrative Seen and examined. Patient diarrhea slowed down to 3 to 4/day mixed with fecal matter and blood. Hemoglobin better 9.0/27.8%. No fever. No abdominal pain. Physical exam General: Alert, Oriented x3, Cooperative. BMI 22.6 kg/m? HEENT: Atraumatic, PERRLA, EOMI, Normocephalic Oral: Oral mucosa is dry. No Gingival or Mucosal Lesions/ Ulcerations Neck: Supple, No JVD, Negative Carotid Bruits Chest wall/Lungs: Air entry diminished in bilateral lung bases. No crepitation/rhonchi Cardiovascular: Regular rate, Regular Rhythm, Normal S1, Normal S2, No M/G/R Abdomen: Bowel Sounds Present, Soft, Non Tender, Non-Distended. Liquid BM on the diaper. : No dysuria. No renal angle tenderness. No suprapubic tenderness. Extremities: No edema, Capillary Refill Less than 3 Seconds Skin: No rashes, No breakdown Musculoskeletal: No Tenderness to Palpation of Joints or Extremities, loss of subcutaneous fat and decreased muscle bulk. Neurological: Cranial nerves II-XII grossly intact, DTR 2+/4. No acute focal neurological deficit. Psych/Mental Status: Flat affect Assessment & Plan Assessment/Plan (1) Orthostatic hypotension: (2) Acute kidney injury: (3) Ulcerative colitis: PLAN: Plan This is 74-year-old gentleman is being admitted for hypotension due to hypovolemia from diarrhea. 1. Hypotension from hypovolemia with lactic acidosis: Patient is being admitted in PCU. Was given 1 L bolus in ED and 1 L Ringer lactate bolus ordered and then NS +20 mEq of KCl 150 mL/h. BP is improving, last 109/79. Heart rate 89/min. Repeat lactic acid. 07/12: Patient did not have focus of infection and has known history of ulcerative colitis causing diarrhea, hypotension and hypoperfusion leading to lactic acidosis. Sepsis was ruled out yesterday therefore was admitted in PCU. Hold for SBP less than 130 mmHg resolved but BP still low 93/63. Continue IV fluid NS +20 mEq KCl at 150 mL/h. Monitor BM 07/15: Hypotension has resolved. 2. Ulcerative colitis exacerbation with persistent diarrhea with mild upon decreasing: Stool for C. difficile and enteric pathogen panel ordered. No leukocytosis. IV Solu-Medrol ordered. Patient was seen in GI clinic on 06/25/2024 and was prescribed Remicade infusion. Discussed with the GI office and insurance has not approved or has date of appointment for infusion. Will try to get infusion after discharge. 07/12: Enteric bacterial ID panel, C. difficile and lactoferrin negative. Stool for occult blood positive. Patient started on Flagyl for ulcerative colitis exacerbation. Solu-Medrol decreased to 20 mg IV every 8 hourly. Pantoprazole ordered as patient having stool for occult blood probably from ulcerative colitis but for GI prophylaxis from Solu-Medrol. 07/13: Patient is still having liquid bowel movement with some fecal matter. 07/14: Discussed with Dr. Penny for other options. Patient has pancolitis UC and will not get better without TNF inhibitor. Remicade prior authorization is still pending from his insurance, discussed with GI office and mattress spring encaser. In meantime, IV Solu-Medrol increased 60 mg every 6 hourly and mesalamine 3 times daily. Continue Flagyl. 07/15: Latest mattress spring encaser update on approval of Remicade that she spoke to patient's financial services and early stages of approval. If symptoms are controlled patient can be discharged next 1 to 2 days but preferably earliest to get Remicade at the infusion center. Follow-up in GI clinic. 3. ROLO due to hypovolemia, prerenal etiology and mild hyponatremia: BUNs/creatinine 13/1.53, BUN/creatinine 8.5 but patient has low BUN due to low muscle mass. IV fluid normal saline. Monitor kidney function. Sodium is 129. Chloride 96, bicarb 20, anion gap 14. 07/12: BUNs/creatinine 7/0.62. ROLO resolved. 4. Anemia of chronic disease from ulcerative colitis: H&H 13.2/42.3%. During previous admission, his hemoglobin was around 9.6/27%. Monitor CBC. 07/12: H&H dropped to 8.2/25.6%. Yesterday H&H as mentioned above was his previous probably hemoconcentrated. 07/13: H&H is still normal 8.0/25%. Mild leukopenia. 07/14: Hemoglobin is 8.4 g. 07/15 hemoglobin is 9 g%. 5. DVT prophylaxis: High risk due to ulcerative colitis. Heparin 5000 units subcutaneous Q12 hourly as patient high risk of bleeding from ulcerative colitis. 07/12: H&H dropped. Stool for occult blood positive. Discontinue heparin subcu. SCDs ordered. Living will/advanced directive/end of life care: Patient does not have living will or advanced directive. He does not have daycare power of compliance attorney for health but his is next of kin. After discussion of benefits/risks procedures involved with full code, DNR CC arrest and DNR CC, the patient opted for DNR CC arrest with no intubation Patient doesn't want artificial life support including intubation, tube feed, ventilator and/chest compression, central venous catheter, vasopressor and DC shock if needed Charges/Coding Visit Charges Inpatient E&M: 98239 Subs Hosp L2
[2024-07-15] MEDS: Atorvastatin Calcium 10 MG Tablet PO (21:29)
[2024-07-15 21:47] LABS: Bedside Glucose 249 mg/dL (74-106)
[2024-07-15] MEDS: 0.9% Saline Lock 10 ML Syringe IV (23:40)
[2024-07-16] VITALS (8 sets, daily range): BP systolic 101–115; BP diastolic 64–71; PULSE 60–74; RESP 16–18; TEMP 36.3–36.7; O2SAT 96–97
[2024-07-16 05:14] LABS: Absolute Lymphocyte Count 0.81 X10^3/uL (0.83-4.51); Absolute Neutrophil Count 5.4 X10^3/uL (2.0-7.7); Basophil# 0.02 X10^3/uL; Basophil% 0.3 % (0-1); Hematocrit 28.8 % (40-54); Hemoglobin 9.2 g/dL (13.0-16.5); Lymphocyte # 0.81 X10^3/ul (0.83-4.51); Mean Corp Hgb Conc 31.9 g/dL (32-36); Mean Corpuscular Hgb 27.7 pg (27.0-32.0); Mean Corpuscular Volume 86.7 fL (80-94); Mean Platelet Vol. 8.4 fl (6.2-12.0); NRBC Flagged by Analyzer 0.3 % (0-5); Neutrophil # 5.37 X10^3/uL (2.7-7.7); Neutrophil % 79.7 % (47-70); POSITIVE COUNT YES; POSITIVE MORPHOLOGY YES; Platelet Count 256 K/mm3 (150-450); RBC Distribution Width CV 13.8 % (11.6-14.6); RBC Distribution Width SD 42.6 fl (35.1-43.9); Red Blood Count 3.32 M/mm3 (4.6-6.2); White Blood Count 6.7 K/mm3 (4.4-11.0)
[2024-07-16 05:23] LABS: Differential Indicated SCAN CRITERIA MET
[2024-07-16] MEDS: MESALAMINE 400 MG CAPSULE.DR PO ×3 (05:25→21:24)
[2024-07-16] MEDS: Baclofen 10 MG Tablet 5 MG PO ×3 (05:25→21:24)
[2024-07-16 05:43] LABS: Anion Gap 4 (5-15); BUN 16 mg/dL (7-18); BUN/Creat Ratio 20.9 RATIO (10-20); Calcium,Total 7.9 mg/dL (8.5-10.1); Chloride 105 mmol/L (98-107); Creatinine, Serum 0.76 mg/dL (0.70-1.30); EST Glomerular Filtration Rate 106 mL/min (>60); Est Glom Filt Rate - Afr Amer 128 mL/min (>60); Estimated Creatinine Clearance 83.05 ml/min; Glucose 190 mg/dL (74-106); Potassium 3.9 mmol/L (3.5-5.1); Sodium Level 136 mmol/L (136-145)
[2024-07-16 06:22] LABS: Differential Comment SCANNED
[2024-07-16] MEDS: Insulin Lispro 100 UNIT/ML INSULN.PEN 10 UNIT SC ×3 (06:35→15:48)
[2024-07-16] MEDS: Insulin Lispro 100 UNIT/ML INSULN.PEN SC ×4 (06:35→21:24)
[2024-07-16 06:56] LABS: Bedside Glucose 160 mg/dL (74-106)
[2024-07-16] MEDS: metroNIDAZOLE 500 MG Tablet PO ×3 (07:55→16:25)
[2024-07-16] MEDS: Menthol/Lanolin/Calamine/Znox 113 GM Tube 1 APPLIC TOPICAL ×2 (09:19→21:23)
[2024-07-16] MEDS: Pantoprazole Sodium 40 MG Tablet PO (09:20)
[2024-07-16] MEDS: Insulin Glargine-YFGN 100 UNIT/ML Pen 15 UNIT SC (09:23)
[2024-07-16] MEDS: Glucerna Shake 120 ML LIQUID PO ×4 (09:23→21:24)
[2024-07-16 10:57] LABS: Bedside Glucose 319 mg/dL (74-106)
[2024-07-16] MEDS: 0.9% Saline Lock 10 ML Syringe IV ×2 (11:37→17:27)
--- NOTE | 2024-07-16 15:25 | PN.HOSP_ITS ---
Reason for Visit Reason for Visit: Diagnoses Orthostatic hypotension (07/11/24) Ulcerative colitis, unspecified, without complications (07/11/24) Melena (07/11/24) Acute kidney failure, unspecified (07/11/24) Subjective Subjective Patient is a 74-year-old gentleman with pancolitis ulcerative colitis presented to the emergency department with hematochezia. Patient was also found to be hypotensive on admission admitted to monitored bed for subsequent management Objective Data Objective Data Vital Signs: Vital Signs Temp Pulse Resp BP Pulse Ox O2 Del Method 97.6 F L 70 18 101/64 97 Room Air 07/16/24 14:08 07/16/24 14:09 07/16/24 14:08 07/16/24 14:07/16/24 14:08 07/16/24 14:08 Oxygen Delivery Method Room Air Weight: 71.4 kg Body Mass Index (BMI) 22.6 Intake & Output: Intake and Output for Last 24 Hours 07/14/24 07/15/24 07/16/24 23:59 23:59 23:59 Output Total 400 / 700 700 / 700 Balance -400 / -700 -700 / -700 Medical Nutrition Assessment Dietitian: Malnutrition Criteria Met Start: 07/11/24 16:03 Freq: Status: Active Protocol: Document 07/14/24 15:33 SB (Rec: 07/14/24 15:33 SB [id number]) Nutrition Malnutrition Evidence of Malnutrition Exists Yes Malnutrition (severe): Acute Illness/Injury Evidenced By Suboptimal Energy Intake ( Severe),Weight Loss (Severe) Clinical Problem Acute Disease or Injury Related Malnutrition Etiology Severe protein-calorie malnutrition in the context of acute illness related to altered GI function and inadequate oral intake Signs/Symptoms as evidenced by 5% unintentional weight loss in less than 1 month and PO meeting less than 50% estimated nutrition needs x 2 weeks Status Active Problem Recommendation Dietitian Recommendations/Changes Recommend advanced diet as tolerated to Carbohydrate- Controlled Diet. Will d/c 240mL ensure clear w/ breakfast and dinner trays. Continue 120ml glucerna shakes 4x daily with medpass. Will order vanilla fortified pudding with dinner. Will monitor weight trends. Reviewed and approved by Marita Wu RD, LD. Lab / Micro Data 07/16/24 04:53 07/16/24 04:53 Labs: Laboratory Results - last 24 hr 12/31/24 16:29: POC Glucose 198 H 07/15/24 21:26: POC Glucose 249 H 07/16/24 04:53: WBC 6.7, RBC 3.32 L, Hgb 9.2 L, Hct 28.8 L, MCV 86.7, MCH 27.7, MCHC 31.9 L, RDW Std Deviation 42.6, RDW Coeff of Janice 13.8, Plt Count 256, MPV 8.4, Immature Gran % (Auto) 5.000 H, Neut % (Auto) 79.7 H, Lymph % (Auto) 12.0 L , [place] % (Auto) 3.0, Eos % (Auto) 0.0, Baso % (Auto) 0.3, Absolute Neuts (auto) 5.4, Absolute Lymphs (auto) 0.81 L, Nucleated RBC % 0.3, Differential Comment SCANNED, Sodium 136, Potassium 3.9, Chloride 105, Carbon Dioxide 27.0, Anion Gap 4 L, BUN 16, Creatinine 0.76, Estim Creat Clear Calc 83.05, Est GFR (MDRD) Af Amer 128, Est GFR (MDRD) Non-Af 106, BUN/Creatinine Ratio 20.9 H, Glucose 190 H, Calcium 7.9 L 07/16/24 06:34: POC Glucose 160 H 07/16/24 10:35: POC Glucose 319 H Micro: Microbiology 07/11/24 14:20 Stool Stool Lactoferrin - Final 07/11/24 14:20 Stool Enteric Bacteriology - Final 07/11/24 14:20 Stool Clostridioides difficile (PCR) - Final 07/11/24 14:20 Stool Stool Occult Blood (ARNALDO) - Final Occult Blood Positive 07/11/24 11:23 Mucosa - Nose SARS-CoV-2, Influenza & RSV (PCR) - Final Physical Exam Narrative GENERAL: cooperative HEENT: Atraumatic; normocephalic EYES; Anicteric, Normal Conjunctiva NECK; supple, normal thyroid, RESPIRATORY: Diminished to auscultation CARDIOVASCULAR: Regular S1 S2, GI: soft, normoactive bowel sounds, : No Renal angle tenderness; EXTREMITIES: No edema, no clubbing, MUSCULOSKELETAL: no muscle wasting NEURO: Awake; no lateralizing signs. SKIN: No Rash PSYCH; Flat affect Assessment & Plan Assessment/Plan (1) Orthostatic hypotension: (2) Acute kidney injury: (3) Ulcerative colitis: PLAN: Plan Patient is a 74-year-old gentleman with pancolitis ulcerative colitis presented to the emergency department with bloody diarrhea. Patient was also found to be hypotensive on admission admitted to monitored bed for subsequent management 1. Acute hypotension hypotension ? Secondary to diarrhea from patient underlying colitis. Patient was also found to have lactic acidosis on admission admitted to a monitored bed resuscitated with IV fluid. 2. Acute exacerbation of ulcerative colitis ? Patient presented with hematochezia, diarrhea and hypotension. Patient was resuscitated with IV fluids as discussed above consultation was placed to GI patient seen by Dr. José who recommended initiation of Solu-Medrol as well as mesalamine in addition to Flagyl. Patient underwent subsequent evaluation with an enteric panel which was negative for infectious etiology. Plan is for patient to be discharged home once an approval for outpatient Remicade therapy is obtained. Case management subsequently consulted 3. Anemia ? Secondary to acute blood loss anemia from patient ulcerative colitis superimposed on chronic disorder monitoring H&H and transfuse if patient becomes symptomatic or hemoglobin falls below 7 4. Hyponatremia ? Secondary to hypovolemic hyponatremia resolved with IV fluid resuscitation subsequent monitoring with daily BMPs ordered 5. Acute kidney injury ? Secondary to volume loss from patient diarrhea creatinine on admission was 1.53 had improved to 0.76 as of 07/16/2024 6. Dyslipidemia ?Patient is on statin therapy, continued at home dose #7. Diabetes mellitus type 2 ? Patient is on metformin held given patient lactic acidosis placed on Accu- Cheks before meals and at bedtime with sliding scale coverage 8. DVT prophylaxis ? Subcu heparin Time spent in the patient's overall evaluation,decision-making process, review of diagnostic data, adjustment of management, discussion with other providers, nursing nursing and ancillary staff involved in patient's care documentation, 50 Minutes Charges/Coding Visit Charges Inpatient E&M: 22475 [facility] Hosp L3
[2024-07-16 16:10] LABS: Bedside Glucose 264 mg/dL (74-106)
[2024-07-16] MEDS: Atorvastatin Calcium 10 MG Tablet PO (21:25)
[2024-07-16 21:50] LABS: Bedside Glucose 195 mg/dL (74-106)
[2024-07-17] MEDS: 0.9% Saline Lock 10 ML Syringe IV (00:26)
[2024-07-17 03:00] VITALS: BP 106/65; PULSE 62; RESP 18; TEMP 36.6; O2SAT 97
[2024-07-17] MEDS: MESALAMINE 400 MG CAPSULE.DR PO ×3 (05:48→21:45)
[2024-07-17] MEDS: Baclofen 10 MG Tablet 5 MG PO ×3 (05:48→21:45)
[2024-07-17 06:01] LABS: Mean Corpuscular Hgb 27.2 pg (27.0-32.0); Mean Corpuscular Volume 87.6 fL (80-94); Mean Platelet Vol. 8.3 fl (6.2-12.0); POSITIVE COUNT YES; POSITIVE MORPHOLOGY YES; Platelet Count 265 K/mm3 (150-450); RBC Distribution Width CV 14.4 % (11.6-14.6); RBC Distribution Width SD 43.5 fl (35.1-43.9); Red Blood Count 3.31 M/mm3 (4.6-6.2); White Blood Count 6.4 K/mm3 (4.4-11.0)
[2024-07-17 06:03] LABS: Differential Indicated MANUAL DIFF
[2024-07-17 06:18] LABS: Anion Gap 4 (5-15); BUN 14 mg/dL (7-18); BUN/Creat Ratio 19.6 RATIO (10-20); Calcium,Total 8.1 mg/dL (8.5-10.1); Chloride 105 mmol/L (98-107); Creatinine, Serum 0.72 mg/dL (0.70-1.30); EST Glomerular Filtration Rate 114 mL/min (>60); Est Glom Filt Rate - Afr Amer 139 mL/min (>60); Estimated Creatinine Clearance 83.05 ml/min; Glucose 151 mg/dL (74-106); Magnesium 2.4 mg/dL (1.6-2.6); Phosphorus 2.5 mg/dL (2.5-4.9); Potassium 4.6 mmol/L (3.5-5.1); Sodium Level 137 mmol/L (136-145)
[2024-07-17 06:28] LABS: Absolute Neutrophil Count 5.2 X10^3/uL (2.0-7.7); Lymphocyte 12 % (19-41); Metamyelocyte 1 % (0-1); Monocyte 4 % (0-10); Neutrophil-Band 2 % (0-5); Neutrophil-Segmented 81 % (47-70); Total Cells Counted 100 (MANUAL DIFF)
[2024-07-17 06:29] LABS: Absolute Lymphocyte Count 0.77 X10^3/uL (0.83-4.51); Lymphocyte # 0.77 X10^3/ul (0.83-4.51); Platelet Estimate ADEQUATE (ADEQ); Polychromasia 1+; Red Cell Morphology NORM C+C NORMAL (NORM C&C)
[2024-07-17 08:00] LABS: Bedside Glucose 134 mg/dL (74-106)
--- NOTE | 2024-07-17 08:14 | PCM.PN.HOSP ---
Reason for Visit Reason for Visit: Diagnoses Orthostatic hypotension (07/11/24) Ulcerative colitis, unspecified, without complications (07/11/24) Melena (07/11/24) Acute kidney failure, unspecified (07/11/24) Subjective Subjective Patient seen continues to have loose bowel movement. Plan was to observe patient for 1-2 more days prior to making a decision regarding Objective Data Objective Data Vital Signs: Vital Signs Temp Pulse Resp BP Pulse Ox O2 Del Method 97.8 F 62 18 106/65 97 Room Air 07/17/24 03:00 07/17/24 03:00 07/17/24 03:00 07/17/24 03:00 07/17/24 03:00 07/17/24 03:00 Oxygen Delivery Method Room Air Weight: 71.4 kg Body Mass Index (BMI) 22.6 Intake & Output: Intake and Output for Last 24 Hours 07/15/24 07/16/24 07/17/24 23:59 23:59 23:59 Output Total 700 / 700 Balance -700 / -700 Medical Nutrition Assessment Dietitian: Malnutrition Criteria Met Start: 07/11/24 16:03 Freq: Status: Active Protocol: Document 07/14/24 15:33 SB (Rec: 07/14/24 15:33 SB [id number]) Nutrition Malnutrition Evidence of Malnutrition Exists Yes Malnutrition (severe): Acute Illness/Injury Evidenced By Suboptimal Energy Intake ( Severe),Weight Loss (Severe) Clinical Problem Acute Disease or Injury Related Malnutrition Etiology Severe protein-calorie malnutrition in the context of acute illness related to altered GI function and inadequate oral intake Signs/Symptoms as evidenced by 5% unintentional weight loss in less than 1 month and PO meeting less than 50% estimated nutrition needs x 2 weeks Status Active Problem Recommendation Dietitian Recommendations/Changes Recommend advanced diet as tolerated to Carbohydrate- Controlled Diet. Will d/c 240mL ensure clear w/ breakfast and dinner trays. Continue 120ml glucerna shakes 4x daily with medpass. Will order vanilla fortified pudding with dinner. Will monitor weight trends. Reviewed and approved by Marita Wu RD, LD. Lab / Micro Data 07/17/24 05:28 07/17/24 05:28 Labs: Laboratory Results - last 24 hr 07/16/24 10:35: POC Glucose 319 H 07/16/24 15:45: POC Glucose 264 H 07/16/24 21:22: POC Glucose 195 H 07/17/24 05:28: WBC 6.4, RBC 3.31 L, Hgb 9.0 L, Hct 29.0 L, MCV 87.6, MCH 27.2, MCHC 31.0 L, RDW Std Deviation 43.5, RDW Coeff of Janice 14.4, Plt Count 265, MPV 8.3, Neut % (Auto) Not Reportable, Absolute Neuts (auto) 5.2, Absolute Lymphs (auto) 0.77 L, Total Counted 100, Neutrophils % (Manual) 81 H, Band Neutrophils % 2, Lymphocytes % (Manual) 12 L, Monocytes % (Manual) 4, Metamyelocytes % 1, Diff Path Review November, Platelet Estimate ADEQUATE, RBC Morphology NORM C+C, Polychromasia 1+, Sodium 137, Potassium 4.6, Chloride 105, Carbon Dioxide 28.0, Anion Gap 4 L, BUN 14, Creatinine 0.72, Estim Creat Clear Calc 83.05, Est GFR (MDRD) Af Amer 139, Est GFR (MDRD) Non-Af 114, BUN/Creatinine Ratio 19.6, Glucose 151 H, Calcium 8.1 L, Phosphorus 2.5, Magnesium 2.4 07/17/24 07:42: POC Glucose 134 H Micro: Microbiology 07/11/24 14:20 Stool Stool Lactoferrin - Final 07/11/24 14:20 Stool Enteric Bacteriology - Final 07/11/24 14:20 Stool Clostridioides difficile (PCR) - Final 07/11/24 14:20 Stool Stool Occult Blood (ARNALDO) - Final Occult Blood Positive 07/11/24 11:23 Mucosa - Nose SARS-CoV-2, Influenza & RSV (PCR) - Final Physical Exam Narrative GENERAL: cooperative HEENT: Atraumatic; normocephalic EYES; Anicteric, Normal Conjunctiva NECK; supple, normal thyroid, RESPIRATORY: Diminished to auscultation CARDIOVASCULAR: Regular S1 S2, GI: soft, normoactive bowel sounds, : No Renal angle tenderness; EXTREMITIES: No edema, no clubbing, MUSCULOSKELETAL: no muscle wasting NEURO: Awake; no lateralizing signs. SKIN: No Rash PSYCH; Flat affect Assessment & Plan Assessment/Plan (1) Orthostatic hypotension: (2) Acute kidney injury: (3) Ulcerative colitis: PLAN: Plan Patient is a 74-year-old gentleman with pancolitis ulcerative colitis presented to the emergency department with bloody diarrhea. Patient was also found to be hypotensive on admission admitted to monitored bed for subsequent management 1. Acute hypotension hypotension ? Secondary to diarrhea from patient underlying colitis. Patient was also found to have lactic acidosis on admission admitted to a monitored bed resuscitated with IV fluid. ? 07/17/2024 hypotension since resolved 2. Acute exacerbation of ulcerative colitis ? Patient presented with hematochezia, diarrhea and hypotension. Patient was resuscitated with IV fluids as discussed above consultation was placed to GI patient seen by Dr. José who recommended initiation of Solu-Medrol as well as mesalamine in addition to Flagyl. Patient underwent subsequent evaluation with an enteric panel which was negative for infectious etiology. Plan is for patient to be discharged home once an approval for outpatient Remicade therapy is obtained. Case management subsequently consulted ? 07/17/2024; patient still remains symptomatic 3. Anemia ? Secondary to acute blood loss anemia from patient ulcerative colitis superimposed on chronic disorder monitoring H&H and transfuse if patient becomes symptomatic or hemoglobin falls below 7 4. Hyponatremia ? Secondary to hypovolemic hyponatremia resolved with IV fluid resuscitation subsequent monitoring with daily BMPs ordered 5. Acute kidney injury ? Secondary to volume loss from patient diarrhea creatinine on admission was 1.53 had improved to 0.76 as of 07/16/2024 6. Dyslipidemia ?Patient is on statin therapy, continued at home dose 7. Diabetes mellitus type 2 ? Patient is on metformin held given patient lactic acidosis placed on Accu-Cheks before meals and at bedtime with sliding scale coverage 8. DVT prophylaxis ? Subcu heparin 9. Severe malnutrition -Related to: acute illness related to altered GI function and inadequate oral intake As evidenced by: 5% unintentional weight loss in less than 1 month and PO meeting less than 50% estimated nutrition Time spent in the patient's overall evaluation,decision-making process, review of diagnostic data, adjustment of management, discussion with other providers, nursing nursing and ancillary staff involved in patient's care documentation, 38 Minutes Charges/Coding Visit Charges Inpatient E&M: 39820 Subs Hosp L2
[2024-07-17 09:00] VITALS: BP 157/85; PULSE 72; RESP 18; TEMP 36.7; O2SAT 98
[2024-07-17] MEDS: Pantoprazole Sodium 40 MG Tablet PO (09:12)
[2024-07-17] MEDS: Insulin Glargine-YFGN 100 UNIT/ML Pen 15 UNIT SC (09:12)
[2024-07-17] MEDS: Insulin Lispro 100 UNIT/ML INSULN.PEN 10 UNIT SC ×3 (09:12→17:35)
[2024-07-17] MEDS: Glucerna Shake 120 ML LIQUID PO ×4 (09:12→21:45)
[2024-07-17] MEDS: metroNIDAZOLE 500 MG Tablet PO ×3 (09:12→17:34)
[2024-07-17] MEDS: Menthol/Lanolin/Calamine/Znox 113 GM Tube 1 APPLIC TOPICAL ×2 (09:13→21:44)
[2024-07-17] MEDS: 0.9 % NaCl (Sterile) Posiflush 10 mL IV ×2 (11:44→17:34)
[2024-07-17] MEDS: Insulin Lispro 100 UNIT/ML INSULN.PEN SC ×3 (11:44→21:48)
[2024-07-17 12:16] LABS: Bedside Glucose 343 mg/dL (74-106)
[2024-07-17 13:14] LABS: Pathologist Review Reviewed
--- NOTE | 2024-07-17 13:30 | CASEMGMT ---
SYDNI PRESTON received notification from Clarisa at [facility] that precert was denied for outpatient [facility] infusion. [facility] to attempt peer to peer. Hospitalist updated.
[2024-07-17 15:00] VITALS: BP 105/66; PULSE 89; RESP 16; TEMP 36.8; O2SAT 98
[2024-07-17 16:59] LABS: Bedside Glucose 285 mg/dL (74-106)
[2024-07-17] MEDS: Atorvastatin Calcium 10 MG Tablet PO (21:45)
[2024-07-17 21:52] VITALS: BP 107/70; PULSE 74; RESP 16; TEMP 36.5; O2SAT 98
[2024-07-17 22:36] LABS: Bedside Glucose 298 mg/dL (74-106)
[2024-07-18] MEDS: 0.9% Saline Lock 10 ML Syringe IV (00:57)
[2024-07-18 03:41] VITALS: BP 103/67; PULSE 74; RESP 16; TEMP 36.5; O2SAT 97
[2024-07-18] MEDS: Baclofen 10 MG Tablet 5 MG PO ×3 (06:24→22:01)
[2024-07-18] MEDS: MESALAMINE 400 MG CAPSULE.DR PO ×3 (06:24→22:00)
[2024-07-18] MEDS: Insulin Lispro 100 UNIT/ML INSULN.PEN 10 UNIT SC ×3 (08:11→16:36)
[2024-07-18] MEDS: metroNIDAZOLE 500 MG Tablet PO ×3 (08:11→16:36)
[2024-07-18] MEDS: Pantoprazole Sodium 40 MG Tablet PO (08:11)
[2024-07-18] MEDS: Glucerna Shake 120 ML LIQUID PO ×3 (08:11→17:41)
[2024-07-18] MEDS: Insulin Lispro 100 UNIT/ML INSULN.PEN SC ×4 (08:13→22:00)
[2024-07-18] MEDS: Insulin Glargine-YFGN 100 UNIT/ML Pen 15 UNIT SC (08:14)
[2024-07-18] MEDS: Menthol/Lanolin/Calamine/Znox 113 GM Tube 1 APPLIC TOPICAL ×2 (08:16→22:00)
[2024-07-18 08:29] VITALS: BP 98/68; PULSE 59; RESP 15; TEMP 35.9; O2SAT 97
[2024-07-18 08:33] LABS: Absolute Lymphocyte Count 0.62 X10^3/uL (0.83-4.51); Absolute Neutrophil Count 4.6 X10^3/uL (2.0-7.7); Basophil# 0.01 X10^3/uL; Basophil% 0.2 % (0-1); Hematocrit 28.3 % (40-54); Lymphocyte # 0.62 X10^3/ul (0.83-4.51); Lymphocyte % 11.2 % (19-41); Mean Corp Hgb Conc 31.8 g/dL (32-36); Mean Corpuscular Hgb 27.7 pg (27.0-32.0); Mean Corpuscular Volume 87.1 fL (80-94); Mean Platelet Vol. 8.2 fl (6.2-12.0); Monocyte# 0.12 X10^3/uL; Monocyte% 2.2 % (0-10); NRBC Flagged by Analyzer 0 % (0-5); Neutrophil # 4.55 X10^3/uL (2.7-7.7); Neutrophil % 81.9 % (47-70); POSITIVE MORPHOLOGY YES; Platelet Count 228 K/mm3 (150-450); RBC Distribution Width CV 14.8 % (11.6-14.6); RBC Distribution Width SD 44.3 fl (35.1-43.9); Red Blood Count 3.25 M/mm3 (4.6-6.2); White Blood Count 5.6 K/mm3 (4.4-11.0)
--- NOTE | 2024-07-18 08:33 | PN.HOSP_ITS ---
Reason for Visit Reason for Visit: Diagnoses Orthostatic hypotension (07/11/24) Ulcerative colitis, unspecified, without complications (07/11/24) Melena (07/11/24) Acute kidney failure, unspecified (07/11/24) Subjective Subjective Patient seen still there is no been any significant improvement in his symptoms. He continues to experience loose bowel movement. Subsequently reconsulted GI Objective Data Objective Data Vital Signs: Vital Signs Temp Pulse Resp BP Pulse Ox O2 Del Method 96.7 F L 59 L 15 98/68 97 Room Air 07/18/24 08:29 07/18/24 08:29 07/18/24 08:29 07/18/24 08:29 07/18/24 08:29 07/18/24 08:29 Oxygen Delivery Method Room Air Weight: 71.4 kg Body Mass Index (BMI) 22.6 Intake & Output: Intake and Output for Last 24 Hours 07/16/24 07/17/24 07/18/24 23:59 23:59 23:59 Intake Total 840 / 840 Output Total 500 / 900 600 / 600 Balance 340 / -60 -600 / -600 Medical Nutrition Assessment Dietitian: Malnutrition Criteria Met Start: 07/11/24 16:03 Freq: Status: Active Protocol: Document 07/14/24 15:33 SB (Rec: 07/14/24 15:33 SB [id number]) Nutrition Malnutrition Evidence of Malnutrition Exists Yes Malnutrition (severe): Acute Illness/Injury Evidenced By Suboptimal Energy Intake ( Severe),Weight Loss (Severe) Clinical Problem Acute Disease or Injury Related Malnutrition Etiology Severe protein-calorie malnutrition in the context of acute illness related to altered GI function and inadequate oral intake Signs/Symptoms as evidenced by 5% unintentional weight loss in less than 1 month and PO meeting less than 50% estimated nutrition needs x 2 weeks Status Active Problem Recommendation Dietitian Recommendations/Changes Recommend advanced diet as tolerated to Carbohydrate- Controlled Diet. Will d/c 240mL ensure clear w/ breakfast and dinner trays. Continue 120ml glucerna shakes 4x daily with medpass. Will order vanilla fortified pudding with dinner. Will monitor weight trends. Reviewed and approved by Marita Wu RD, LD. Lab / Micro Data 07/18/24 08:10 07/18/24 08:10 Labs: Laboratory Results - last 24 hr 07/17/24 05:28: Diff Path Review Reviewed 07/17/24 11:43: POC Glucose 343 H 07/17/24 16:42: POC Glucose 285 H 07/17/24 21:48: POC Glucose 298 H Micro: Microbiology 07/11/24 14:20 Stool Stool Lactoferrin - Final 07/11/24 14:20 Stool Enteric Bacteriology - Final 07/11/24 14:20 Stool Clostridioides difficile (PCR) - Final 07/11/24 14:20 Stool Stool Occult Blood (ARNALDO) - Final Occult Blood Positive 07/11/24 11:23 Mucosa - Nose SARS-CoV-2, Influenza & RSV (PCR) - Final Physical Exam Narrative GENERAL: cooperative HEENT: Atraumatic; normocephalic EYES; Anicteric, Normal Conjunctiva NECK; supple, normal thyroid, RESPIRATORY: Diminished to auscultation CARDIOVASCULAR: Regular S1 S2, GI: soft, normoactive bowel sounds, : No Renal angle tenderness; EXTREMITIES: No edema, no clubbing, MUSCULOSKELETAL: no muscle wasting NEURO: Awake; no lateralizing signs. SKIN: No Rash PSYCH; Flat affect Assessment & Plan Assessment/Plan (1) Orthostatic hypotension: (2) Acute kidney injury: (3) Ulcerative colitis: PLAN: Plan Patient is a 74-year-old gentleman with pancolitis ulcerative colitis presented to the emergency department with bloody diarrhea. Patient was also found to be hypotensive on admission admitted to monitored bed for subsequent management 1. Acute hypotension hypotension ? Secondary to diarrhea from patient underlying colitis. Patient was also found to have lactic acidosis on admission admitted to a monitored bed resuscitated with IV fluid. ? 07/17/2024 hypotension since resolved 2. Acute exacerbation of ulcerative colitis ? Patient presented with hematochezia, diarrhea and hypotension. Patient was resuscitated with IV fluids as discussed above consultation was placed to GI patient seen by Dr. José who recommended initiation of Solu-Medrol as well as mesalamine in addition to Flagyl. Patient underwent subsequent evaluation with an enteric panel which was negative for infectious etiology. Plan is for patient to be discharged home once an approval for outpatient Remicade therapy is obtained. Case management subsequently consulted ? 07/17/2024; patient still remains symptomatic ? 07/18/2024; with patient symptoms recurrent, requested reconsultation with GI Dr. Friend notified 3. Anemia ? Secondary to acute blood loss anemia from patient ulcerative colitis superimposed on chronic disorder monitoring H&H and transfuse if patient becomes symptomatic or hemoglobin falls below 7 4. Hyponatremia ? Secondary to hypovolemic hyponatremia resolved with IV fluid resuscitation subsequent monitoring with daily BMPs ordered 5. Acute kidney injury ? Secondary to volume loss from patient diarrhea creatinine on admission was 1.53 had improved to 0.76 as of 07/16/2024 6. Dyslipidemia ?Patient is on statin therapy, continued at home dose 7. Diabetes mellitus type 2 ? Patient is on metformin held given patient lactic acidosis placed on Accu- Cheks before meals and at bedtime with sliding scale coverage 8. DVT prophylaxis ? Subcu heparin 9. Severe malnutrition -Related to: acute illness related to altered GI function and inadequate oral intake As evidenced by: 5% unintentional weight loss in less than 1 month and PO meeting less than 50% estimated nutrition Time spent in the patient's overall evaluation,decision-making process, review of diagnostic data, adjustment of management, discussion with other providers, nursing nursing and ancillary staff involved in patient's care documentation, 38 Minutes Charges/Coding Visit Charges Inpatient E&M: 22328 Subs Hosp L2
[2024-07-18 08:37] LABS: Differential Indicated SCAN CRITERIA MET
[2024-07-18 08:39] LABS: Bedside Glucose 181 mg/dL (74-106)
[2024-07-18 09:08] LABS: Anion Gap 5 (5-15); BUN 13 mg/dL (7-18); BUN/Creat Ratio 18.4 RATIO (10-20); Calcium,Total 7.8 mg/dL (8.5-10.1); Chloride 106 mmol/L (98-107); Creatinine, Serum 0.71 mg/dL (0.70-1.30); EST Glomerular Filtration Rate 116 mL/min (>60); Est Glom Filt Rate - Afr Amer 141 mL/min (>60); Estimated Creatinine Clearance 83.05 ml/min; Glucose 179 mg/dL (74-106); Potassium 4.1 mmol/L (3.5-5.1); Sodium Level 137 mmol/L (136-145)
[2024-07-18 09:13] LABS: Platelet Estimate ADEQUATE (ADEQ)
[2024-07-18 10:48] LABS: CRP 5.68 mg/L (0.0-3.0)
[2024-07-18 11:21] LABS: Erythrocyte Sedimentation Rate 28 mm/hr (0-20)
[2024-07-18] MEDS: 0.9 % NaCl (Sterile) Posiflush 10 mL IV ×2 (11:41→17:43)
[2024-07-18 14:03] VITALS: BP 117/67; PULSE 92; RESP 17; TEMP 36.2; O2SAT 100
--- NOTE | 2024-07-18 15:40 | CASEMGMT ---
SYDNI PRESTON NOTE: 6 CL: 24 today. SYDNI PRESTON to room. Pt resting in bed. He states he has been getting OOB ad daly in room and to the bathroom. Denies having any discharge/home-going needs. Denies need for HHC or OP therapy. Flaquita LYNN RN, CM
[2024-07-18 16:55] LABS: Bedside Glucose 352 mg/dL (74-106)
--- NOTE | 2024-07-18 19:21 | PN.GI_ITS ---
Subjective Subjective Patient is still having several bowel movements per day. He is very frustrated that he cannot get Remicade or Inflectra. Objective Data Objective Data Vital Signs: Vital Signs Temp Pulse Resp BP Pulse Ox O2 Del Method 97.1 F L 92 17 117/67 100 Room Air 07/18/24 14:03 07/18/24 14:03 07/18/24 14:03 07/18/24 14:03 07/18/24 14:03 07/18/24 14:03 Oxygen Delivery Method Room Air Weight: 157 lb 6.561 oz Body Mass Index (BMI) 22.6 Intake & Output: Intake and Output for Last 24 Hours 07/16/24 07/17/24 07/18/24 23:59 23:59 23:59 Intake Total 840 / 840 850 / 850 Output Total 500 / 900 1075 / 1075 Balance 340 / -60 -225 / -225 Medical Nutrition Assessment Dietitian: Malnutrition Criteria Met Start: 07/11/24 16:03 Freq: Status: Active Protocol: Document 07/14/24 15:33 SB (Rec: 07/14/24 15:33 SB [id number]) Nutrition Malnutrition Evidence of Malnutrition Exists Yes Malnutrition (severe): Acute Illness/Injury Evidenced By Suboptimal Energy Intake ( Severe),Weight Loss (Severe) Clinical Problem Acute Disease or Injury Related Malnutrition Etiology Severe protein-calorie malnutrition in the context of acute illness related to altered GI function and inadequate oral intake Signs/Symptoms as evidenced by 5% unintentional weight loss in less than 1 month and PO meeting less than 50% estimated nutrition needs x 2 weeks Status Active Problem Recommendation Dietitian Recommendations/Changes Recommend advanced diet as tolerated to Carbohydrate- Controlled Diet. Will d/c 240mL ensure clear w/ breakfast and dinner trays. Continue 120ml glucerna shakes 4x daily with medpass. Will order vanilla fortified pudding with dinner. Will monitor weight trends. Reviewed and approved by Marita Wu RD, LD. Lab / Micro Data 07/18/24 08:10 07/18/24 08:10 Labs: Laboratory Results - last 24 hr 07/17/24 21:48: POC Glucose 298 H 07/18/24 08:10: WBC 5.6, RBC 3.25 L, Hgb 9.0 L, Hct 28.3 L, MCV 87.1, MCH 27.7, MCHC 31.8 L, RDW Std Deviation 44.3 H, RDW Coeff of Janice 14.8 H, Plt Count 228, MPV 8.2, Immature Gran % (Auto) 4.500 H, Neut % (Auto) 81.9 H, Lymph % (Auto) 11.2 L, [place] % (Auto) 2.2, Eos % (Auto) 0.0, Baso % (Auto) 0.2, Absolute Neuts (auto) 4.6, Absolute Lymphs (auto) 0.62 L, Nucleated RBC % 0, Platelet Estimate ADEQUATE, ESR 28 H, Sodium 137, Potassium 4.1, Chloride 106, Carbon Dioxide 26.0, Anion Gap 5, BUN 13, Creatinine 0.71, Estim Creat Clear Calc 83.05, Est GFR (MDRD) Af Amer 141, Est GFR (MDRD) Non-Af 116, BUN/Creatinine Ratio 18.4, G lucose 179 H, Calcium 7.8 L, C-React Prot Ext Range 5.68 H, POC Glucose 181 H 07/18/24 16:34: POC Glucose 352 H Micro: Microbiology 07/11/24 14:20 Stool Stool Lactoferrin - Final 07/11/24 14:20 Stool Enteric Bacteriology - Final 07/11/24 14:20 Stool Clostridioides difficile (PCR) - Final 07/11/24 14:20 Stool Stool Occult Blood (ARNALDO) - Final Occult Blood Positive 07/11/24 11:23 Mucosa - Nose SARS-CoV-2, Influenza & RSV (PCR) - Final Physical Exam Narrative GENERAL: cooperative HEENT: Atraumatic; normocephalic EYES; Anicteric, Normal Conjunctiva NECK; supple, normal thyroid, RESPIRATORY: Diminished to auscultation CARDIOVASCULAR: Regular S1 S2, GI: soft, normoactive bowel sounds, : No Renal angle tenderness; EXTREMITIES: No edema, no clubbing, MUSCULOSKELETAL: no muscle wasting NEURO: Awake; no lateralizing signs. SKIN: No Rash PSYCH; Flat affect Assessment & Plan Assessment/Plan (1) Orthostatic hypotension: (2) Acute kidney injury: (3) Ulcerative colitis: PLAN: Plan This is 74-year-old gentleman is being admitted for hypotension due to hypovolemia from diarrhea. 1. Hypotension from hypovolemia with lactic acidosis: Patient is being admitted in PCU. Was given 1 L bolus in ED and 1 L Ringer lactate bolus ordered and then NS +20 mEq of KCl 150 mL/h. BP is improving, last 109/79. Heart rate 89/min. Repeat lactic acid. 07/12: Patient did not have focus of infection and has known history of ulcerative colitis causing diarrhea, hypotension and hypoperfusion leading to lactic acidosis. Sepsis was ruled out yesterday therefore was admitted in PCU. Hold for SBP less than 130 mmHg resolved but BP still low 93/63. Continue IV fluid NS +20 mEq KCl at 150 mL/h. Monitor BM 07/15: Hypotension has resolved. 2. Ulcerative colitis exacerbation with persistent diarrhea with mild upon decreasing: Stool for C. difficile and enteric pathogen panel ordered. No leukocytosis. IV Solu-Medrol ordered. Patient was seen in GI clinic on 06/25/2024 and was prescribed Remicade infusion. 07/12: Enteric bacterial ID panel, C. difficile and lactoferrin negative. Stool for occult blood positive. Patient started on Flagyl for ulcerative colitis exacerbation. Solu-Medrol decreased to 20 mg IV every 8 hourly. Pantoprazole ordered as patient having stool for occult blood probably from ulcerative colitis but for GI prophylaxis from Solu-Medrol. 07/13: Patient is still having liquid bowel movement with some fecal matter. 07/14: Patient has pancolitis UC and will not get better without TNF inhibitor. Remicade prior authorization is still pending from his insurance, In meantime, IV Solu-Medrol increased 60 mg every 6 hourly and mesalamine 3 times daily. Continue Flagyl. 07/15: Latest case preparer and liner update on approval of Remicade that she spoke to patient's financial services and early stages of approval. If symptoms are controlled patient can be discharged next 1 to 2 days but preferably earliest to get Remicade at the infusion center. 07/18/2024: I just had a long talk with ablation explaining that I have done for peer reviews to get his medication approved. His insurance will only pay for Remicade and we only have Inflectra here on formulary. Also Inflectra is not approved by his current insurance. I sent the referral over to [facility]. They said the earliest that he can get in infusion is next on 07/24/2024. I redrew his ESR and CRP and they are improving but his ESR is still elevated. I think he is having slow improvement and not showing any signs of megacolon at this time. I will give him oral pain medicine and see if it improves his symptoms along with antispasmodic in order to hopefully cut down on his urgency. He still has severe protein calorie malnutrition secondary to protein loss in his stool. Charges/Coding Visit Charges Inpatient E&M: 67466 Subs Hosp L3
[2024-07-18 20:18] VITALS: BP 108/66; PULSE 68; RESP 18; TEMP 36.7; O2SAT 99
[2024-07-18] MEDS: oxyCODONE 5 MG Tablet PO (22:00)
[2024-07-18] MEDS: Atorvastatin Calcium 10 MG Tablet PO (22:01)
[2024-07-18 22:23] LABS: Bedside Glucose 216 mg/dL (74-106)
[2024-07-19] MEDS: 0.9% Saline Lock 10 ML Syringe IV (01:03)
[2024-07-19 03:00] VITALS: BP 101/69; PULSE 66; RESP 14; TEMP 36.6; O2SAT 99
[2024-07-19] MEDS: MESALAMINE 400 MG CAPSULE.DR PO ×3 (05:57→22:59)
[2024-07-19] MEDS: Baclofen 10 MG Tablet 5 MG PO ×3 (05:57→22:59)
[2024-07-19] MEDS: Dicyclomine 10 MG Capsule PO ×3 (05:58→16:30)
[2024-07-19 07:03] LABS: Absolute Lymphocyte Count 0.69 X10^3/uL (0.83-4.51); Absolute Neutrophil Count 5.8 X10^3/uL (2.0-7.7); Basophil# 0.01 X10^3/uL; Basophil% 0.1 % (0-1); Hematocrit 27.9 % (40-54); Lymphocyte # 0.69 X10^3/ul (0.83-4.51); Lymphocyte % 10.1 % (19-41); Mean Corp Hgb Conc 32.3 g/dL (32-36); Mean Corpuscular Hgb 28.4 pg (27.0-32.0); Mean Platelet Vol. 8.6 fl (6.2-12.0); Monocyte# 0.15 X10^3/uL; Monocyte% 2.2 % (0-10); NRBC Flagged by Analyzer 0 % (0-5); Neutrophil # 5.84 X10^3/uL (2.7-7.7); Neutrophil % 85.3 % (47-70); Platelet Count 233 K/mm3 (150-450); RBC Distribution Width CV 14.8 % (11.6-14.6); RBC Distribution Width SD 46.5 fl (35.1-43.9); Red Blood Count 3.17 M/mm3 (4.6-6.2); White Blood Count 6.9 K/mm3 (4.4-11.0)
[2024-07-19 07:29] LABS: Anion Gap 6 (5-15); BUN 13 mg/dL (7-18); BUN/Creat Ratio 17.2 RATIO (10-20); Calcium,Total 7.7 mg/dL (8.5-10.1); Chloride 104 mmol/L (98-107); Creatinine, Serum 0.76 mg/dL (0.70-1.30); EST Glomerular Filtration Rate 108 mL/min (>60); Est Glom Filt Rate - Afr Amer 130 mL/min (>60); Estimated Creatinine Clearance 83.05 ml/min; Glucose 193 mg/dL (74-106); Potassium 4.3 mmol/L (3.5-5.1); Sodium Level 135 mmol/L (136-145)
[2024-07-19] MEDS: Insulin Lispro 100 UNIT/ML INSULN.PEN SC ×4 (08:29→23:00)
[2024-07-19] MEDS: Insulin Glargine-YFGN 100 UNIT/ML Pen 15 UNIT SC (08:30)
[2024-07-19] MEDS: metroNIDAZOLE 500 MG Tablet PO ×3 (08:31→16:30)
[2024-07-19] MEDS: Pantoprazole Sodium 40 MG Tablet PO (08:32)
[2024-07-19] MEDS: Insulin Lispro 100 UNIT/ML INSULN.PEN 10 UNIT SC ×3 (08:34→16:29)
[2024-07-19] MEDS: Glucerna Shake 120 ML LIQUID PO ×4 (08:35→23:03)
[2024-07-19] MEDS: oxyCODONE 5 MG Tablet PO ×2 (08:35→23:03)
--- NOTE | 2024-07-19 08:38 | PCM.PN.HOSP ---
Reason for Visit Reason for Visit: Diagnoses Orthostatic hypotension (07/11/24) Ulcerative colitis, unspecified, without complications (07/11/24) Melena (07/11/24) Acute kidney failure, unspecified (07/11/24) Subjective Subjective Patient seen finally admitted some improvement in his condition. Patient was seen and evaluated by Dr. Penny with GI plan is for patient to start Remicade as outpatient on , 07/24/2024. Objective Data Objective Data Vital Signs: Vital Signs Temp Pulse Resp BP Pulse Ox O2 Del Method 97.8 F 66 14 101/69 99 Room Air 07/19/24 03:00 07/19/24 03:00 07/19/24 03:00 07/19/24 03:00 07/19/24 03:00 07/19/24 03:00 Oxygen Delivery Method Room Air Weight: 71.4 kg Body Mass Index (BMI) 22.6 Intake & Output: Intake and Output for Last 24 Hours 07/17/24 07/18/24 07/19/24 23:59 23:59 23:59 Intake Total 840 / 840 850 / 850 Output Total 500 / 900 1075 / 1075 Balance 340 / -60 -225 / -225 Medical Nutrition Assessment Dietitian: Malnutrition Criteria Met Start: 07/11/24 16:03 Freq: Status: Active Protocol: Document 07/14/24 15:33 SB (Rec: 07/14/24 15:33 SB [id number]) Nutrition Malnutrition Evidence of Malnutrition Exists Yes Malnutrition (severe): Acute Illness/Injury Evidenced By Suboptimal Energy Intake ( Severe),Weight Loss (Severe) Clinical Problem Acute Disease or Injury Related Malnutrition Etiology Severe protein-calorie malnutrition in the context of acute illness related to altered GI function and inadequate oral intake Signs/Symptoms as evidenced by 5% unintentional weight loss in less than 1 month and PO meeting less than 50% estimated nutrition needs x 2 weeks Status Active Problem Recommendation Dietitian Recommendations/Changes Recommend advanced diet as tolerated to Carbohydrate- Controlled Diet. Will d/c 240mL ensure clear w/ breakfast and dinner trays. Continue 120ml glucerna shakes 4x daily with medpass. Will order vanilla fortified pudding with dinner. Will monitor weight trends. Reviewed and approved by Marita Wu RD, LD. Lab / Micro Data 07/19/24 06:29 07/19/24 06:29 Labs: Laboratory Results - last 24 hr 07/18/24 08:10: Platelet Estimate ADEQUATE, ESR 28 H, Sodium 137, Potassium 4.1, Chloride 106, Carbon Dioxide 26.0, Anion Gap 5, BUN 13, Creatinine 0.71, Estim Creat Clear Calc 83.05, Est GFR (MDRD) Af Amer 141, Est GFR (MDRD) Non-Af 116, BUN/Creatinine Ratio 18.4, Glucose 179 H, Calcium 7.8 L, C-React Prot Ext Range 5.68 H, POC Glucose 181 H 07/18/24 16:34: POC Glucose 352 H 07/18/24 21:55: POC Glucose 216 H 07/19/24 06:29: WBC 6.9, RBC 3.17 L, Hgb 9.0 L, Hct 27.9 L, MCV 88.0, MCH 28.4, MCHC 32.3, RDW Std Deviation 46.5 H, RDW Coeff of Janice 14.8 H, Plt Count 233, MPV 8.6, Immature Gran % (Auto) 2.300 H, Neut % (Auto) 85.3 H, Lymph % (Auto) 10.1 L, [place] % (Auto) 2.2, Eos % (Auto) 0.0, Baso % (Auto) 0.1, Absolute Neuts (auto) 5.8, Absolute Lymphs (auto) 0.69 L, Nucleated RBC % 0, Sodium 135 L, Potassium 4.3, Chloride 104, Carbon Dioxide 25.0, Anion Gap 6, BUN 13, Creatinine 0.76, Estim Creat Clear Calc 83.05, Est GFR (MDRD) Af Amer 130, Est GFR (MDRD) Non-Af 108, BUN/Creatinine Ratio 17.2, Glucose 193 H, Calcium 7.7 L Micro: Microbiology 07/11/24 14:20 Stool Stool Lactoferrin - Final 07/11/24 14:20 Stool Enteric Bacteriology - Final 07/11/24 14:20 Stool Clostridioides difficile (PCR) - Final 07/11/24 14:20 Stool Stool Occult Blood (ARNALDO) - Final Occult Blood Positive 07/11/24 11:23 Mucosa - Nose SARS-CoV-2, Influenza & RSV (PCR) - Final Physical Exam Narrative GENERAL: cooperative HEENT: Atraumatic; normocephalic EYES; Anicteric, Normal Conjunctiva NECK; supple, normal thyroid, RESPIRATORY: Diminished to auscultation CARDIOVASCULAR: Regular S1 S2, GI: soft, normoactive bowel sounds, : No Renal angle tenderness; EXTREMITIES: No edema, no clubbing, MUSCULOSKELETAL: no muscle wasting NEURO: Awake; no lateralizing signs. SKIN: No Rash PSYCH; Flat affect Assessment & Plan Assessment/Plan (1) Orthostatic hypotension: (2) Acute kidney injury: (3) Ulcerative colitis: PLAN: Plan Patient is a 74-year-old gentleman with pancolitis ulcerative colitis presented to the emergency department with bloody diarrhea. Patient was also found to be hypotensive on admission admitted to monitored bed for subsequent management 1. Acute hypotension hypotension ? Secondary to diarrhea from patient underlying colitis. Patient was also found to have lactic acidosis on admission admitted to a monitored bed resuscitated with IV fluid. ? 07/17/2024 hypotension since resolved 2. Acute exacerbation of ulcerative colitis ? Patient presented with hematochezia, diarrhea and hypotension. Patient was resuscitated with IV fluids as discussed above consultation was placed to GI patient seen by Dr. José who recommended initiation of Solu-Medrol as well as mesalamine in addition to Flagyl. Patient underwent subsequent evaluation with an enteric panel which was negative for infectious etiology. Plan is for patient to be discharged home once an approval for outpatient Remicade therapy is obtained. Case management subsequently consulted ? 07/17/2024; patient still remains symptomatic ? 07/18/2024; with patient symptoms recurrent, requested reconsultation with GI Dr. Penny notified ? 07/19/2024;Patient seen finally admitted some improvement in his condition. Patient was seen and evaluated by Dr. Penny with GI plan is for patient to start Remicade as outpatient on , 07/24/2024 3. Anemia ? Secondary to acute blood loss anemia from patient ulcerative colitis superimposed on chronic disorder monitoring H&H and transfuse if patient becomes symptomatic or hemoglobin falls below 7 4. Hyponatremia ? Secondary to hypovolemic hyponatremia resolved with IV fluid resuscitation subsequent monitoring with daily BMPs ordered 5. Acute kidney injury ? Secondary to volume loss from patient diarrhea creatinine on admission was 1.53 had improved to 0.76 as of 07/16/2024 6. Dyslipidemia ?Patient is on statin therapy, continued at home dose 7. Diabetes mellitus type 2 ? Patient is on metformin held given patient lactic acidosis placed on Accu-Cheks before meals and at bedtime with sliding scale coverage 8. DVT prophylaxis ? Subcu heparin 9. Severe malnutrition -Related to: acute illness related to altered GI function and inadequate oral intake As evidenced by: 5% unintentional weight loss in less than 1 month and PO meeting less than 50% estimated nutrition Time spent in the patient's overall evaluation,decision-making process, review of diagnostic data, adjustment of management, discussion with other providers, nursing nursing and ancillary staff involved in patient's care documentation, 38 Minutes Charges/Coding Visit Charges Inpatient E&M: 00280 Subs Hosp L2
[2024-07-19 09:00] VITALS: BP 135/57; PULSE 56; RESP 16; TEMP 36.4; O2SAT 100
[2024-07-19] MEDS: 0.9 % NaCl (Sterile) Posiflush 10 mL IV ×2 (11:42→23:04)
[2024-07-19] MEDS: Acetaminophen 325 MG Tablet 650 MG PO (11:44)
[2024-07-19 12:20] LABS: Bedside Glucose 464 mg/dL (74-106)
[2024-07-19 14:47] VITALS: BP 122/64; PULSE 61; RESP 16; TEMP 36.2; O2SAT 98
[2024-07-19 16:50] LABS: Bedside Glucose 308 mg/dL (74-106)
[2024-07-19 22:54] VITALS: BP 119/68; PULSE 70; RESP 18; TEMP 36.6; O2SAT 96
[2024-07-19] MEDS: Atorvastatin Calcium 10 MG Tablet PO (23:00)
[2024-07-19 23:40] LABS: Bedside Glucose 152 mg/dL (74-106)
[2024-07-20 06:32] VITALS: BP 113/78; PULSE 88; RESP 16; TEMP 36.4; O2SAT 100
[2024-07-20] MEDS: MESALAMINE 400 MG CAPSULE.DR PO ×3 (06:36→22:57)
[2024-07-20] MEDS: Baclofen 10 MG Tablet 5 MG PO ×3 (06:36→22:56)
[2024-07-20] MEDS: Dicyclomine 10 MG Capsule PO ×3 (06:37→16:17)
[2024-07-20] MEDS: 0.9 % NaCl (Sterile) Posiflush 10 mL IV ×3 (06:37→23:01)
[2024-07-20 06:44] LABS: Absolute Lymphocyte Count 0.85 X10^3/uL (0.83-4.51); Absolute Neutrophil Count 11.9 X10^3/uL (2.0-7.7); Basophil# 0.03 X10^3/uL; Basophil% 0.2 % (0-1); Hematocrit 35.4 % (40-54); Hemoglobin 11.1 g/dL (13.0-16.5); Lymphocyte # 0.85 X10^3/ul (0.83-4.51); Lymphocyte % 6.3 % (19-41); Mean Corp Hgb Conc 31.4 g/dL (32-36); Mean Corpuscular Hgb 27.7 pg (27.0-32.0); Mean Corpuscular Volume 88.3 fL (80-94); Mean Platelet Vol. 8.5 fl (6.2-12.0); Monocyte# 0.37 X10^3/uL; Monocyte% 2.7 % (0-10); NRBC Flagged by Analyzer 0.1 % (0-5); Neutrophil # 11.86 X10^3/uL (2.7-7.7); Neutrophil % 88.1 % (47-70); POSITIVE MORPHOLOGY YES; Platelet Count 321 K/mm3 (150-450); RBC Distribution Width CV 15.2 % (11.6-14.6); RBC Distribution Width SD 46.7 fl (35.1-43.9); Red Blood Count 4.01 M/mm3 (4.6-6.2); White Blood Count 13.5 K/mm3 (4.4-11.0)
[2024-07-20 07:07] LABS: Differential Indicated SCAN CRITERIA MET
[2024-07-20 07:29] LABS: Anion Gap 7 (5-15); BUN 18 mg/dL (7-18); BUN/Creat Ratio 21.2 RATIO (10-20); Chloride 105 mmol/L (98-107); Creatinine, Serum 0.85 mg/dL (0.70-1.30); EST Glomerular Filtration Rate 94 mL/min (>60); Est Glom Filt Rate - Afr Amer 114 mL/min (>60); Estimated Creatinine Clearance 78.17 ml/min; Glucose 203 mg/dL (74-106); Potassium 4.2 mmol/L (3.5-5.1); Sodium Level 135 mmol/L (136-145)
[2024-07-20 08:13] LABS: Bedside Glucose 174 mg/dL (74-106)
[2024-07-20 08:29] VITALS: BP 102/66; PULSE 60; RESP 16; TEMP 36.6; O2SAT 96
[2024-07-20] MEDS: metroNIDAZOLE 500 MG Tablet PO ×3 (09:25→16:17)
[2024-07-20] MEDS: Insulin Lispro 100 UNIT/ML INSULN.PEN SC ×4 (09:25→22:59)
[2024-07-20] MEDS: Insulin Lispro 100 UNIT/ML INSULN.PEN 10 UNIT SC ×3 (09:25→17:39)
[2024-07-20] MEDS: oxyCODONE 5 MG Tablet PO ×2 (10:16→23:01)
[2024-07-20] MEDS: Insulin Glargine-YFGN 100 UNIT/ML Pen 15 UNIT SC (10:17)
[2024-07-20] MEDS: Glucerna Shake 120 ML LIQUID PO ×4 (10:18→22:57)
[2024-07-20] MEDS: Pantoprazole Sodium 40 MG Tablet PO (10:18)
--- NOTE | 2024-07-20 11:10 | PCM.PN.HOSP ---
Reason for Visit Reason for Visit: Diagnoses Orthostatic hypotension (07/11/24) Ulcerative colitis, unspecified, without complications (07/11/24) Melena (07/11/24) Acute kidney failure, unspecified (07/11/24) Subjective Subjective Patient seen no change in clinical condition continues to experience loose bowel movement Objective Data Objective Data Vital Signs: Vital Signs Temp Pulse Resp BP Pulse Ox O2 Del Method 97.8 F 60 16 102/66 96 Room Air 07/20/24 08:29 07/20/24 08:29 07/20/24 08:29 07/20/24 08:29 07/20/24 08:29 07/20/24 08:29 Oxygen Delivery Method Room Air Weight: 71.4 kg Body Mass Index (BMI) 22.6 Intake & Output: Intake and Output for Last 24 Hours 07/18/24 07/19/24 07/20/24 23:59 23:59 23:59 Intake Total 850 / 850 360 / 360 Output Total 1075 / 1075 300 / 300 Balance -225 / -225 60 / 60 Medical Nutrition Assessment Dietitian: Malnutrition Criteria Met Start: 07/11/24 16:03 Freq: Status: Active Protocol: Document 07/14/24 15:33 SB (Rec: 07/14/24 15:33 SB [id number]) Nutrition Malnutrition Evidence of Malnutrition Exists Yes Malnutrition (severe): Acute Illness/Injury Evidenced By Suboptimal Energy Intake ( Severe),Weight Loss (Severe) Clinical Problem Acute Disease or Injury Related Malnutrition Etiology Severe protein-calorie malnutrition in the context of acute illness related to altered GI function and inadequate oral intake Signs/Symptoms as evidenced by 5% unintentional weight loss in less than 1 month and PO meeting less than 50% estimated nutrition needs x 2 weeks Status Active Problem Recommendation Dietitian Recommendations/Changes Recommend advanced diet as tolerated to Carbohydrate- Controlled Diet. Will d/c 240mL ensure clear w/ breakfast and dinner trays. Continue 120ml glucerna shakes 4x daily with medpass. Will order vanilla fortified pudding with dinner. Will monitor weight trends. Reviewed and approved by Marita Wu RD, LD. Lab / Micro Data 07/20/24 06:43 07/20/24 06:43 Labs: Laboratory Results - last 24 hr 07/19/24 11:36: POC Glucose 464 H* 07/19/24 16:28: POC Glucose 308 H 07/19/24 22:58: POC Glucose 152 H 07/20/24 06:43: WBC 13.5 H, RBC 4.01 L, Hgb 11.1 L, Hct 35.4 L, MCV 88.3, MCH 27.7, MCHC 31.4 L, RDW Std Deviation 46.7 H, RDW Coeff of Janice 15.2 H, Plt Count 321, MPV 8.5, Immature Gran % (Auto) 2.700 H, Neut % (Auto) 88.1 H, Lymph % (Auto) 6.3 L, [place] % (Auto) 2.7, Eos % (Auto) 0.0, Baso % (Auto) 0.2, Absolute Neuts (auto) 11.9 H, Absolute Lymphs (auto) 0.85, Nucleated RBC % 0.1, Sodium 135 L, Potassium 4.2, Chloride 105, Carbon Dioxide 23.0, Anion Gap 7, BUN 18, Creatinine 0.85, Estim Creat Clear Calc 78.17, Est GFR (MDRD) Af Amer 114, Est GFR (MDRD) Non-Af 94, BUN/Creatinine Ratio 21.2 H, Glucose 203 H, Calcium 8.0 L 07/20/24 07:55: POC Glucose 174 H Micro: Microbiology 07/11/24 14:20 Stool Stool Lactoferrin - Final 07/11/24 14:20 Stool Enteric Bacteriology - Final 07/11/24 14:20 Stool Clostridioides difficile (PCR) - Final 07/11/24 14:20 Stool Stool Occult Blood (ARNALDO) - Final Occult Blood Positive 07/11/24 11:23 Mucosa - Nose SARS-CoV-2, Influenza & RSV (PCR) - Final Physical Exam Narrative GENERAL: cooperative HEENT: Atraumatic; normocephalic EYES; Anicteric, Normal Conjunctiva NECK; supple, normal thyroid, RESPIRATORY: Diminished to auscultation CARDIOVASCULAR: Regular S1 S2, GI: soft, normoactive bowel sounds, : No Renal angle tenderness; EXTREMITIES: No edema, no clubbing, MUSCULOSKELETAL: no muscle wasting NEURO: Awake; no lateralizing signs. SKIN: No Rash PSYCH; Flat affect Assessment & Plan Assessment/Plan (1) Orthostatic hypotension: (2) Acute kidney injury: (3) Ulcerative colitis: PLAN: Plan Patient is a 74-year-old gentleman with pancolitis ulcerative colitis presented to the emergency department with bloody diarrhea. Patient was also found to be hypotensive on admission admitted to monitored bed for subsequent management 1. Acute hypotension hypotension ? Secondary to diarrhea from patient underlying colitis. Patient was also found to have lactic acidosis on admission admitted to a monitored bed resuscitated with IV fluid. ? 07/17/2024 hypotension since resolved 2. Acute exacerbation of ulcerative colitis ? Patient presented with hematochezia, diarrhea and hypotension. Patient was resuscitated with IV fluids as discussed above consultation was placed to GI patient seen by Dr. José who recommended initiation of Solu-Medrol as well as mesalamine in addition to Flagyl. Patient underwent subsequent evaluation with an enteric panel which was negative for infectious etiology. Plan is for patient to be discharged home once an approval for outpatient Remicade therapy is obtained. Case management subsequently consulted ? 07/17/2024; patient still remains symptomatic ? 07/18/2024; with patient symptoms recurrent, requested reconsultation with GI Dr. Penny notified ? 07/19/2024;Patient seen finally admitted some improvement in his condition. Patient was seen and evaluated by Dr. Penny with GI plan is for patient to start Remicade as outpatient on , 07/24/2024 ? 07/20/2024;Patient seen no change in clinical condition continues to experience loose bowel movement 3. Anemia ? Secondary to acute blood loss anemia from patient ulcerative colitis superimposed on chronic disorder monitoring H&H and transfuse if patient becomes symptomatic or hemoglobin falls below 7 4. Hyponatremia ? Secondary to hypovolemic hyponatremia resolved with IV fluid resuscitation subsequent monitoring with daily BMPs ordered 5. Acute kidney injury ? Secondary to volume loss from patient diarrhea creatinine on admission was 1.53 had improved to 0.76 as of 07/16/2024 6. Dyslipidemia ?Patient is on statin therapy, continued at home dose 7. Diabetes mellitus type 2 ? Patient is on metformin held given patient lactic acidosis placed on Accu-Cheks before meals and at bedtime with sliding scale coverage 8. DVT prophylaxis ? Subcu heparin 9. Severe malnutrition -Related to: acute illness related to altered GI function and inadequate oral intake As evidenced by: 5% unintentional weight loss in less than 1 month and PO meeting less than 50% estimated nutrition Time spent in the patient's overall evaluation,decision-making process, review of diagnostic data, adjustment of management, discussion with other providers, nursing nursing and ancillary staff involved in patient's care documentation, 38 Minutes Charges/Coding Visit Charges Inpatient E&M: 48413 Subs Hosp L2
[2024-07-20 12:05] LABS: Bedside Glucose 355 mg/dL (74-106)
[2024-07-20] MEDS: 0.9% Saline Lock 10 ML Syringe IV (13:16)
[2024-07-20 14:23] VITALS: BP 101/65; PULSE 86; RESP 16; TEMP 36.3; O2SAT 96
[2024-07-20 16:50] LABS: Bedside Glucose 337 mg/dL (74-106)
[2024-07-20 18:30] VITALS: BP 103/59; PULSE 73; RESP 18; TEMP 36.4; O2SAT 96
[2024-07-20] MEDS: Atorvastatin Calcium 10 MG Tablet PO (22:57)
[2024-07-20 23:08] VITALS: BP 104/73; PULSE 64; RESP 16; TEMP 36.4; O2SAT 99
[2024-07-20 23:33] LABS: Bedside Glucose 216 mg/dL (74-106)
[2024-07-21 05:59] LABS: Absolute Lymphocyte Count 0.48 X10^3/uL (0.83-4.51); Absolute Neutrophil Count 5.5 X10^3/uL (2.0-7.7); Hematocrit 28.9 % (40-54); Hemoglobin 8.9 g/dL (13.0-16.5); Lymphocyte # 0.48 X10^3/ul (0.83-4.51); Lymphocyte % 7.7 % (19-41); Mean Corp Hgb Conc 30.8 g/dL (32-36); Mean Corpuscular Hgb 27.4 pg (27.0-32.0); Mean Corpuscular Volume 88.9 fL (80-94); Mean Platelet Vol. 8.7 fl (6.2-12.0); Monocyte# 0.17 X10^3/uL; Monocyte% 2.7 % (0-10); NRBC Flagged by Analyzer 0 % (0-5); Neutrophil # 5.46 X10^3/uL (2.7-7.7); Neutrophil % 87.8 % (47-70); POSITIVE DIFFERENTIAL YES; POSITIVE MORPHOLOGY YES; Platelet Count 190 K/mm3 (150-450); RBC Distribution Width CV 15.5 % (11.6-14.6); Red Blood Count 3.25 M/mm3 (4.6-6.2); White Blood Count 6.2 K/mm3 (4.4-11.0)
[2024-07-21 06:07] LABS: Differential Indicated SCAN CRITERIA MET
[2024-07-21] MEDS: 0.9 % NaCl (Sterile) Posiflush 10 mL IV (06:18)
[2024-07-21] MEDS: Dicyclomine 10 MG Capsule PO ×3 (06:19→17:16)
[2024-07-21] MEDS: MESALAMINE 400 MG CAPSULE.DR PO ×3 (06:19→20:53)
[2024-07-21] MEDS: Baclofen 10 MG Tablet 5 MG PO ×3 (06:19→20:53)
[2024-07-21 06:21] VITALS: BP 102/63; PULSE 61; RESP 14; TEMP 36.3; O2SAT 97
[2024-07-21 06:28] LABS: Anion Gap 3 (5-15); BUN 16 mg/dL (7-18); BUN/Creat Ratio 23.2 RATIO (10-20); Chloride 103 mmol/L (98-107); Creatinine, Serum 0.69 mg/dL (0.70-1.30); EST Glomerular Filtration Rate 120 mL/min (>60); Est Glom Filt Rate - Afr Amer 145 mL/min (>60); Estimated Creatinine Clearance 83.05 ml/min; Glucose 216 mg/dL (74-106); Potassium 4.7 mmol/L (3.5-5.1); Sodium Level 134 mmol/L (136-145)
[2024-07-21 07:31] LABS: Ovalocyte 1+; Platelet Morphology 1
[2024-07-21 08:14] LABS: Bedside Glucose 447 mg/dL (74-106)
[2024-07-21 08:14] LABS: Bedside Glucose 426 mg/dL (74-106)
[2024-07-21] MEDS: Insulin Lispro 100 UNIT/ML INSULN.PEN 10 UNIT SC ×3 (08:22→17:16)
[2024-07-21] MEDS: metroNIDAZOLE 500 MG Tablet PO ×3 (08:23→17:16)
[2024-07-21] MEDS: Insulin Lispro 100 UNIT/ML INSULN.PEN SC ×4 (08:23→20:59)
[2024-07-21] MEDS: Insulin Glargine-YFGN 100 UNIT/ML Pen 15 UNIT SC (08:23)
--- NOTE | 2024-07-21 08:24 | PCM.PN.HOSP ---
Reason for Visit Reason for Visit: Diagnoses Orthostatic hypotension (07/11/24) Ulcerative colitis, unspecified, without complications (07/11/24) Melena (07/11/24) Acute kidney failure, unspecified (07/11/24) Subjective Subjective Patient seen finally admitted some improvement in his diarrhea with less frequent stools. Objective Data Objective Data Vital Signs: Vital Signs Temp Pulse Resp BP Pulse Ox O2 Del Method 97.4 F L 61 14 102/63 97 Room Air 07/21/24 06:21 07/21/24 06:21 07/21/24 06:21 07/21/24 06:21 07/21/24 06:21 07/21/24 06:21 Oxygen Delivery Method Room Air Weight: 71.4 kg Body Mass Index (BMI) 22.6 Intake & Output: Intake and Output for Last 24 Hours 07/19/24 07/20/24 07/21/24 23:59 23:59 23:59 Intake Total 360 / 360 1040 / 1040 220 / 220 Output Total 300 / 300 Balance 60 / 60 1040 / 1040 220 / 220 Medical Nutrition Assessment Dietitian: Malnutrition Criteria Met Start: 07/11/24 16:03 Freq: Status: Active Protocol: Document 07/14/24 15:33 SB (Rec: 07/14/24 15:33 SB [id number]) Nutrition Malnutrition Evidence of Malnutrition Exists Yes Malnutrition (severe): Acute Illness/Injury Evidenced By Suboptimal Energy Intake ( Severe),Weight Loss (Severe) Clinical Problem Acute Disease or Injury Related Malnutrition Etiology Severe protein-calorie malnutrition in the context of acute illness related to altered GI function and inadequate oral intake Signs/Symptoms as evidenced by 5% unintentional weight loss in less than 1 month and PO meeting less than 50% estimated nutrition needs x 2 weeks Status Active Problem Recommendation Dietitian Recommendations/Changes Recommend advanced diet as tolerated to Carbohydrate- Controlled Diet. Will d/c 240mL ensure clear w/ breakfast and dinner trays. Continue 120ml glucerna shakes 4x daily with medpass. Will order vanilla fortified pudding with dinner. Will monitor weight trends. Reviewed and approved by Marita Wu RD, LD. Lab / Micro Data 07/21/24 05:33 07/21/24 05:33 Labs: Laboratory Results - last 24 hr 07/18/24 11:30: POC Glucose 426 H 07/18/24 11:34: POC Glucose 447 H 07/20/24 11:45: POC Glucose 355 H 07/20/24 16:15: POC Glucose 337 H 07/20/24 22:58: POC Glucose 216 H 07/21/24 05:33: WBC 6.2, RBC 3.25 L, Hgb 8.9 L, Hct 28.9 L, MCV 88.9, MCH 27.4, MCHC 30.8 L, RDW Std Deviation 48.0 H, RDW Coeff of Janice 15.5 H, Plt Count 190, MPV 8.7, Immature Gran % (Auto) 1.800 H, Neut % (Auto) 87.8 H, Lymph % (Auto) 7.7 L, [place] % (Auto) 2.7, Eos % (Auto) 0.0, Baso % (Auto) 0.0, Absolute Neuts (auto) 5.5, Absolute Lymphs (auto) 0.48 L, Nucleated RBC % 0, Plt Morphology Comment 1, Ovalocytes 1+, Sodium 134 L, Potassium 4.7, Chloride 103, Carbon Dioxide 28.0, Anion Gap 3 L, BUN 16, Creatinine 0.69 L, Estim Creat Clear Calc 83.05, Est GFR (MDRD) Af Amer 145, Est GFR (MDRD) Non-Af 120, BUN/Creatinine Ratio 23.2 H, Glucose 216 H, Calcium 8.0 L Micro: Microbiology 07/11/24 14:20 Stool Stool Lactoferrin - Final 07/11/24 14:20 Stool Enteric Bacteriology - Final 07/11/24 14:20 Stool Clostridioides difficile (PCR) - Final 07/11/24 14:20 Stool Stool Occult Blood (ARNALDO) - Final Occult Blood Positive 07/11/24 11:23 Mucosa - Nose SARS-CoV-2, Influenza & RSV (PCR) - Final Physical Exam Narrative GENERAL: cooperative HEENT: Atraumatic; normocephalic EYES; Anicteric, Normal Conjunctiva NECK; supple, normal thyroid, RESPIRATORY: Diminished to auscultation CARDIOVASCULAR: Regular S1 S2, GI: soft, normoactive bowel sounds, : No Renal angle tenderness; EXTREMITIES: No edema, no clubbing, MUSCULOSKELETAL: no muscle wasting NEURO: Awake; no lateralizing signs. SKIN: No Rash PSYCH; Flat affect Assessment & Plan Assessment/Plan (1) Orthostatic hypotension: (2) Acute kidney injury: (3) Ulcerative colitis: PLAN: Plan Patient is a 74-year-old gentleman with pancolitis ulcerative colitis presented to the emergency department with bloody diarrhea. Patient was also found to be hypotensive on admission admitted to monitored bed for subsequent management 1. Acute hypotension hypotension ? Secondary to diarrhea from patient underlying colitis. Patient was also found to have lactic acidosis on admission admitted to a monitored bed resuscitated with IV fluid. ? 07/17/2024 hypotension since resolved 2. Acute exacerbation of ulcerative colitis ? Patient presented with hematochezia, diarrhea and hypotension. Patient was resuscitated with IV fluids as discussed above consultation was placed to GI patient seen by Dr. José who recommended initiation of Solu-Medrol as well as mesalamine in addition to Flagyl. Patient underwent subsequent evaluation with an enteric panel which was negative for infectious etiology. Plan is for patient to be discharged home once an approval for outpatient Remicade therapy is obtained. Case management subsequently consulted ? 07/17/2024; patient still remains symptomatic ? 07/18/2024; with patient symptoms recurrent, requested reconsultation with GI Dr. Penny notified ? 07/19/2024;Patient seen finally admitted some improvement in his condition. Patient was seen and evaluated by Dr. Penny with GI plan is for patient to start Remicade as outpatient on , 07/24/2024 ? 07/20/2024;Patient seen no change in clinical condition continues to experience loose bowel movement 07/21/2024;Patient seen finally admitted to some improvement in his diarrhea with less frequent stools. 3. Anemia ? Secondary to acute blood loss anemia from patient ulcerative colitis superimposed on chronic disorder monitoring H&H and transfuse if patient becomes symptomatic or hemoglobin falls below 7 4. Hyponatremia ? Secondary to hypovolemic hyponatremia resolved with IV fluid resuscitation subsequent monitoring with daily BMPs ordered 5. Acute kidney injury ? Secondary to volume loss from patient diarrhea creatinine on admission was 1.53 had improved to 0.76 as of 07/16/2024 6. Dyslipidemia ?Patient is on statin therapy, continued at home dose 7. Diabetes mellitus type 2 ? Patient is on metformin held given patient lactic acidosis placed on Accu-Cheks before meals and at bedtime with sliding scale coverage 8. DVT prophylaxis ? Subcu heparin 9. Severe malnutrition -Related to: acute illness related to altered GI function and inadequate oral intake As evidenced by: 5% unintentional weight loss in less than 1 month and PO meeting less than 50% estimated nutrition Time spent in the patient's overall evaluation,decision-making process, review of diagnostic data, adjustment of management, discussion with other providers, nursing nursing and ancillary staff involved in patient's care documentation, 35 Minutes Charges/Coding Visit Charges Inpatient E&M: 02781 Subs Hosp L2
[2024-07-21 08:46] LABS: Bedside Glucose 199 mg/dL (74-106)
[2024-07-21 09:58] VITALS: BP 104/59; PULSE 70; RESP 16; TEMP 36.8; O2SAT 97
[2024-07-21] MEDS: Pantoprazole Sodium 40 MG Tablet PO (10:02)
[2024-07-21] MEDS: oxyCODONE 5 MG Tablet PO ×2 (10:02→20:59)
[2024-07-21] MEDS: Glucerna Shake 120 ML LIQUID PO ×3 (10:04→20:58)
[2024-07-21 11:59] LABS: Bedside Glucose 388 mg/dL (74-106)
[2024-07-21 13:36] VITALS: BP 109/84; PULSE 89; RESP 16; TEMP 36.9; O2SAT 99
[2024-07-21 17:38] LABS: Bedside Glucose 243 mg/dL (74-106)
[2024-07-21 19:00] VITALS: PULSE 68
[2024-07-21 20:51] VITALS: BP 115/67; PULSE 64; RESP 20; TEMP 36.7; O2SAT 98
[2024-07-21] MEDS: Menthol/Lanolin/Calamine/Znox 113 GM Tube 1 APPLIC TOPICAL (20:52)
[2024-07-21] MEDS: Atorvastatin Calcium 10 MG Tablet PO (20:53)
[2024-07-21 21:35] LABS: Bedside Glucose 271 mg/dL (74-106)
[2024-07-21] MEDS: 0.9% Saline Lock 10 ML Syringe IV (23:09)
[2024-07-22 03:00] VITALS: PULSE 64
[2024-07-22 03:20] VITALS: BP 102/67; PULSE 60; RESP 20; TEMP 36.4; O2SAT 96
[2024-07-22] MEDS: 0.9% Saline Lock 10 ML Syringe IV (05:49)
[2024-07-22] MEDS: MESALAMINE 400 MG CAPSULE.DR PO ×3 (05:49→20:05)
[2024-07-22] MEDS: Dicyclomine 10 MG Capsule PO ×3 (05:49→16:36)
[2024-07-22] MEDS: Baclofen 10 MG Tablet 5 MG PO ×3 (05:49→20:05)
[2024-07-22] MEDS: 0.9 % NaCl (Sterile) Posiflush 10 mL IV (08:39)
[2024-07-22 09:05] VITALS: BP 95/60; PULSE 66; RESP 18; TEMP 36.4; O2SAT 98
[2024-07-22] MEDS: Insulin Glargine-YFGN 100 UNIT/ML Pen 15 UNIT SC (09:19)
[2024-07-22] MEDS: Insulin Lispro 100 UNIT/ML INSULN.PEN SC ×4 (09:19→20:05)
[2024-07-22] MEDS: Insulin Lispro 100 UNIT/ML INSULN.PEN 10 UNIT SC ×3 (09:22→16:56)
[2024-07-22] MEDS: metroNIDAZOLE 500 MG Tablet PO ×3 (09:23→16:37)
[2024-07-22] MEDS: Menthol/Lanolin/Calamine/Znox 113 GM Tube 1 APPLIC TOPICAL ×2 (09:23→20:04)
[2024-07-22] MEDS: Glucerna Shake 120 ML LIQUID PO ×4 (09:23→20:05)
[2024-07-22] MEDS: Pantoprazole Sodium 40 MG Tablet PO (09:24)
[2024-07-22] MEDS: oxyCODONE 5 MG Tablet PO ×2 (09:30→21:32)
[2024-07-22 09:42] LABS: Bedside Glucose 180 mg/dL (74-106)
--- NOTE | 2024-07-22 11:16 | CASEMGMT ---
SYDNI PRESTON called Clarisa at [facility]. Per Clarisa, she spoke with [facility] yesterday regarding Remicade infusion and they are awaiting insurance approval and anticipated hearing updated late yesterday afternoon or today regarding approval. Per Clarisa, [facility] does not have a confirmed appointment until they receive insurance approval. Clarisa states she will update this RN CM regarding confirmed setup for outpatient IV Remicade at [facility] when she gets updated from [facility]. SYDNI PRESTON updated hospitalist and patient.
--- NOTE | 2024-07-22 12:44 | PN.HOSP_ITS ---
Reason for Visit Reason for Visit: Diagnoses Orthostatic hypotension (07/11/24) Ulcerative colitis, unspecified, without complications (07/11/24) Melena (07/11/24) Acute kidney failure, unspecified (07/11/24) Subjective Subjective Patient seen reports no change in his clinical condition. Do anticipate discharge in a.m. with plans for patient to follow-up at his infusion center for initiation of his Remicade Objective Data Objective Data Vital Signs: Vital Signs Temp Pulse Resp BP Pulse Ox O2 Del Method 97.6 F L 66 18 95/60 98 Room Air 07/22/24 09:05 07/22/24 09:05 07/22/24 09:05 07/22/24 09:05 07/22/24 09:05 07/22/24 09:05 Oxygen Delivery Method Room Air Weight: 71.4 kg Body Mass Index (BMI) 22.6 Intake & Output: Intake and Output for Last 24 Hours 07/20/24 07/21/24 07/22/24 23:59 23:59 23:59 Intake Total 1040 / 1040 340 / 340 100 / 100 Output Total 150 / 150 Balance 1040 / 1040 190 / 190 100 / 100 Medical Nutrition Assessment Dietitian: Malnutrition Criteria Met Start: 07/11/24 16:03 Freq: Status: Active Protocol: Document 07/14/24 15:33 SB (Rec: 07/14/24 15:33 SB [id number]) Nutrition Malnutrition Evidence of Malnutrition Exists Yes Malnutrition (severe): Acute Illness/Injury Evidenced By Suboptimal Energy Intake ( Severe),Weight Loss (Severe) Clinical Problem Acute Disease or Injury Related Malnutrition Etiology Severe protein-calorie malnutrition in the context of acute illness related to altered GI function and inadequate oral intake Signs/Symptoms as evidenced by 5% unintentional weight loss in less than 1 month and PO meeting less than 50% estimated nutrition needs x 2 weeks Status Active Problem Recommendation Dietitian Recommendations/Changes Recommend advanced diet as tolerated to Carbohydrate- Controlled Diet. Will d/c 240mL ensure clear w/ breakfast and dinner trays. Continue 120ml glucerna shakes 4x daily with medpass. Will order vanilla fortified pudding with dinner. Will monitor weight trends. Reviewed and approved by Marita Wu RD, LD. Lab / Micro Data 07/21/24 05:33 07/21/24 05:33 Labs: Laboratory Results - last 24 hr 07/21/24 17:15: POC Glucose 243 H 07/21/24 20:58: POC Glucose 271 H 07/22/24 09:13: POC Glucose 180 H Micro: Microbiology 07/11/24 14:20 Stool Stool Lactoferrin - Final 07/11/24 14:20 Stool Enteric Bacteriology - Final 07/11/24 14:20 Stool Clostridioides difficile (PCR) - Final 07/11/24 14:20 Stool Stool Occult Blood (ARNALDO) - Final Occult Blood Positive 07/11/24 11:23 Mucosa - Nose SARS-CoV-2, Influenza & RSV (PCR) - Final Physical Exam Narrative GENERAL: cooperative HEENT: Atraumatic; normocephalic EYES; Anicteric, Normal Conjunctiva NECK; supple, normal thyroid, RESPIRATORY: Diminished to auscultation CARDIOVASCULAR: Regular S1 S2, GI: soft, normoactive bowel sounds, : No Renal angle tenderness; EXTREMITIES: No edema, no clubbing, MUSCULOSKELETAL: no muscle wasting NEURO: Awake; no lateralizing signs. SKIN: No Rash PSYCH; Flat affect Assessment & Plan Assessment/Plan (1) Orthostatic hypotension: (2) Acute kidney injury: (3) Ulcerative colitis: PLAN: Plan Patient is a 74-year-old gentleman with pancolitis ulcerative colitis presented to the emergency department with bloody diarrhea. Patient was also found to be hypotensive on admission admitted to monitored bed for subsequent management 1. Acute hypotension hypotension ? Secondary to diarrhea from patient underlying colitis. Patient was also found to have lactic acidosis on admission admitted to a monitored bed resuscitated with IV fluid. ? 07/17/2024 hypotension since resolved 2. Acute exacerbation of ulcerative colitis ? Patient presented with hematochezia, diarrhea and hypotension. Patient was resuscitated with IV fluids as discussed above consultation was placed to GI patient seen by Dr. José who recommended initiation of Solu-Medrol as well as mesalamine in addition to Flagyl. Patient underwent subsequent evaluation with an enteric panel which was negative for infectious etiology. Plan is for patient to be discharged home once an approval for outpatient Remicade therapy is obtained. Case management subsequently consulted ? 07/17/2024; patient still remains symptomatic ? 07/18/2024; with patient symptoms recurrent, requested reconsultation with GI Dr. Friend notified ? 07/19/2024;Patient seen finally admitted some improvement in his condition. Patient was seen and evaluated by Dr. Penny with GI plan is for patient to start Remicade as outpatient on , 07/24/2024 ? 07/20/2024;Patient seen no change in clinical condition continues to experience loose bowel movement 07/21/2024;Patient seen finally admitted to some improvement in his diarrhea with less frequent stools. ? 07/22/2024; reports no change in his clinical condition do anticipate discharge in a.m. for initiation of his Remicade at his infusion center 3. Anemia ? Secondary to acute blood loss anemia from patient ulcerative colitis superimposed on chronic disorder monitoring H&H and transfuse if patient becomes symptomatic or hemoglobin falls below 7 4. Hyponatremia ? Secondary to hypovolemic hyponatremia resolved with IV fluid resuscitation subsequent monitoring with daily BMPs ordered 5. Acute kidney injury ? Secondary to volume loss from patient diarrhea creatinine on admission was 1.53 had improved to 0.76 as of 07/16/2024 6. Dyslipidemia ?Patient is on statin therapy, continued at home dose 7. Diabetes mellitus type 2 ? Patient is on metformin held given patient lactic acidosis placed on Accu- Cheks before meals and at bedtime with sliding scale coverage 8. DVT prophylaxis ? Subcu heparin 9. Severe malnutrition -Related to: acute illness related to altered GI function and inadequate oral intake As evidenced by: 5% unintentional weight loss in less than 1 month and PO meeting less than 50% estimated nutrition Time spent in the patient's overall evaluation,decision-making process, review of diagnostic data, adjustment of management, discussion with other providers, nursing nursing and ancillary staff involved in patient's care documentation, 35 Minutes Charges/Coding Visit Charges Inpatient E&M: 74485 Subs Hosp L2
[2024-07-22 13:14] LABS: Bedside Glucose 348 mg/dL (74-106)
[2024-07-22 14:20] VITALS: BP 111/67; PULSE 73; RESP 16; TEMP 36.5; O2SAT 96
[2024-07-22 17:16] LABS: Bedside Glucose 328 mg/dL (74-106)
[2024-07-22 20:03] VITALS: BP 106/58; PULSE 76; RESP 16; TEMP 36.6; O2SAT 98
[2024-07-22] MEDS: Atorvastatin Calcium 10 MG Tablet PO (20:06)
[2024-07-22 22:12] LABS: Bedside Glucose 287 mg/dL (74-106)
[2024-07-23 01:06] VITALS: BP 114/66; PULSE 76; RESP 16; TEMP 36.6; O2SAT 96
[2024-07-23 06:30] VITALS: BP 99/60; PULSE 72; RESP 16; TEMP 36.3; O2SAT 99
[2024-07-23] MEDS: Dicyclomine 10 MG Capsule PO ×2 (06:51→12:03)
[2024-07-23] MEDS: Baclofen 10 MG Tablet 5 MG PO ×2 (06:51→12:59)
[2024-07-23] MEDS: MESALAMINE 400 MG CAPSULE.DR PO ×2 (06:51→12:59)
[2024-07-23 07:58] LABS: Absolute Lymphocyte Count 0.41 X10^3/uL (0.83-4.51); Absolute Neutrophil Count 4.9 X10^3/uL (2.0-7.7); Basophil# 0.01 X10^3/uL; Basophil% 0.2 % (0-1); Hematocrit 27.9 % (40-54); Hemoglobin 8.7 g/dL (13.0-16.5); Lymphocyte # 0.41 X10^3/ul (0.83-4.51); Lymphocyte % 7.5 % (19-41); Mean Corp Hgb Conc 31.2 g/dL (32-36); Mean Corpuscular Hgb 27.4 pg (27.0-32.0); Mean Corpuscular Volume 87.7 fL (80-94); Mean Platelet Vol. 8.9 fl (6.2-12.0); Monocyte# 0.12 X10^3/uL; Monocyte% 2.2 % (0-10); NRBC Flagged by Analyzer 0 % (0-5); Neutrophil % 89.4 % (47-70); POSITIVE DIFFERENTIAL YES; POSITIVE MORPHOLOGY YES; Platelet Count 198 K/mm3 (150-450); RBC Distribution Width CV 15.9 % (11.6-14.6); RBC Distribution Width SD 49.1 fl (35.1-43.9); Red Blood Count 3.18 M/mm3 (4.6-6.2); White Blood Count 5.5 K/mm3 (4.4-11.0)
--- NOTE | 2024-07-23 08:02 | PCM.PN.HOSP ---
Reason for Visit Reason for Visit: Diagnoses Orthostatic hypotension (07/11/24) Ulcerative colitis, unspecified, without complications (07/11/24) Melena (07/11/24) Acute kidney failure, unspecified (07/11/24) Subjective Subjective Patient seen still has loose bowel movement however appears to have stabilized to discussed with patient about discharge with plans for patient to follow-up with Dr. Penny as outpatient for initiation of his Remicade. Objective Data Objective Data Vital Signs: Vital Signs Temp Pulse Resp BP Pulse Ox O2 Del Method 97.4 F L 72 16 99/60 99 Room Air 07/23/24 06:30 07/23/24 06:30 07/23/24 06:30 07/23/24 06:30 07/23/24 06:30 07/23/24 06:30 Oxygen Delivery Method Room Air Weight: 71.4 kg Body Mass Index (BMI) 22.6 Intake & Output: Intake and Output for Last 24 Hours 07/21/24 07/22/24 07/23/24 23:59 23:59 23:59 Intake Total 340 / 340 1120 / 1120 Output Total 150 / 150 125 / 325 200 / 200 Balance 190 / 190 995 / 795 -200 / -200 Medical Nutrition Assessment Dietitian: Malnutrition Criteria Met Start: 07/11/24 16:03 Freq: Status: Active Protocol: Document 07/14/24 15:33 SB (Rec: 07/14/24 15:33 SB [id number]) Nutrition Malnutrition Evidence of Malnutrition Exists Yes Malnutrition (severe): Acute Illness/Injury Evidenced By Suboptimal Energy Intake ( Severe),Weight Loss (Severe) Clinical Problem Acute Disease or Injury Related Malnutrition Etiology Severe protein-calorie malnutrition in the context of acute illness related to altered GI function and inadequate oral intake Signs/Symptoms as evidenced by 5% unintentional weight loss in less than 1 month and PO meeting less than 50% estimated nutrition needs x 2 weeks Status Active Problem Recommendation Dietitian Recommendations/Changes Recommend advanced diet as tolerated to Carbohydrate- Controlled Diet. Will d/c 240mL ensure clear w/ breakfast and dinner trays. Continue 120ml glucerna shakes 4x daily with medpass. Will order vanilla fortified pudding with dinner. Will monitor weight trends. Reviewed and approved by Marita Wu RD, LD. Lab / Micro Data 07/23/24 07:15 07/23/24 07:15 Labs: Laboratory Results - last 24 hr 07/22/24 09:13: POC Glucose 180 H 07/22/24 12:49: POC Glucose 348 H 07/22/24 16:54: POC Glucose 328 H 07/22/24 20:02: POC Glucose 287 H Micro: Microbiology 07/11/24 14:20 Stool Stool Lactoferrin - Final 07/11/24 14:20 Stool Enteric Bacteriology - Final 07/11/24 14:20 Stool Clostridioides difficile (PCR) - Final 07/11/24 14:20 Stool Stool Occult Blood (ARNALDO) - Final Occult Blood Positive 07/11/24 11:23 Mucosa - Nose SARS-CoV-2, Influenza & RSV (PCR) - Final Physical Exam Narrative GENERAL: cooperative HEENT: Atraumatic; normocephalic EYES; Anicteric, Normal Conjunctiva NECK; supple, normal thyroid, RESPIRATORY: Diminished to auscultation CARDIOVASCULAR: Regular S1 S2, GI: soft, normoactive bowel sounds, : No Renal angle tenderness; EXTREMITIES: No edema, no clubbing, MUSCULOSKELETAL: no muscle wasting NEURO: Awake; no lateralizing signs. SKIN: No Rash PSYCH; Flat affect Assessment & Plan Assessment/Plan (1) Orthostatic hypotension: (2) Acute kidney injury: (3) Ulcerative colitis: PLAN: Plan Patient is a 74-year-old gentleman with pancolitis ulcerative colitis presented to the emergency department with bloody diarrhea. Patient was also found to be hypotensive on admission admitted to monitored bed for subsequent management 1. Acute hypotension hypotension ? Secondary to diarrhea from patient underlying colitis. Patient was also found to have lactic acidosis on admission admitted to a monitored bed resuscitated with IV fluid. ? 07/17/2024 hypotension since resolved 2. Acute exacerbation of ulcerative colitis ? Patient presented with hematochezia, diarrhea and hypotension. Patient was resuscitated with IV fluids as discussed above consultation was placed to GI patient seen by Dr. José who recommended initiation of Solu-Medrol as well as mesalamine in addition to Flagyl. Patient underwent subsequent evaluation with an enteric panel which was negative for infectious etiology. Plan is for patient to be discharged home once an approval for outpatient Remicade therapy is obtained. Case management subsequently consulted ? 07/17/2024; patient still remains symptomatic ? 07/18/2024; with patient symptoms recurrent, requested reconsultation with GI Dr. Penny notified ? 07/19/2024;Patient seen finally admitted some improvement in his condition. Patient was seen and evaluated by Dr. Penny with GI plan is for patient to start Remicade as outpatient on , 07/24/2024 ? 07/20/2024;Patient seen no change in clinical condition continues to experience loose bowel movement 07/21/2024;Patient seen finally admitted to some improvement in his diarrhea with less frequent stools. ? 07/22/2024; reports no change in his clinical condition do anticipate discharge in a.m. for initiation of his Remicade at his infusion center ? 07/23/2024;Patient seen still has loose bowel movement however appears to have stabilized to discussed with patient about discharge with plans for patient to follow-up with Dr. Penny as outpatient for initiation of his Remicade 3. Anemia ? Secondary to acute blood loss anemia from patient ulcerative colitis superimposed on chronic disorder monitoring H&H and transfuse if patient becomes symptomatic or hemoglobin falls below 7 4. Hyponatremia ? Secondary to hypovolemic hyponatremia resolved with IV fluid resuscitation subsequent monitoring with daily BMPs ordered 5. Acute kidney injury ? Secondary to volume loss from patient diarrhea creatinine on admission was 1.53 had improved to 0.76 as of 07/16/2024 6. Dyslipidemia ?Patient is on statin therapy, continued at home dose 7. Diabetes mellitus type 2 ? Patient is on metformin held given patient lactic acidosis placed on Accu-Cheks before meals and at bedtime with sliding scale coverage 8. DVT prophylaxis ? Subcu heparin 9. Severe malnutrition -Related to: acute illness related to altered GI function and inadequate oral intake As evidenced by: 5% unintentional weight loss in less than 1 month and PO meeting less than 50% estimated nutrition Time spent in the patient's overall evaluation,decision-making process, review of diagnostic data, adjustment of management, discussion with other providers, nursing nursing and ancillary staff involved in patient's care documentation, 35 Minutes
[2024-07-23 08:08] LABS: Differential Indicated SCAN CRITERIA MET
[2024-07-23 08:23] LABS: Bedside Glucose 214 mg/dL (74-106)
[2024-07-23 08:27] LABS: Anion Gap 7 (5-15); BUN 17 mg/dL (7-18); BUN/Creat Ratio 25.3 RATIO (10-20); Calcium,Total 7.6 mg/dL (8.5-10.1); Chloride 100 mmol/L (98-107); Creatinine, Serum 0.67 mg/dL (0.70-1.30); EST Glomerular Filtration Rate 123 mL/min (>60); Est Glom Filt Rate - Afr Amer 149 mL/min (>60); Estimated Creatinine Clearance 83.05 ml/min; Glucose 243 mg/dL (74-106); Magnesium 2.3 mg/dL (1.6-2.6); Phosphorus 2.7 mg/dL (2.5-4.9); Potassium 4.5 mmol/L (3.5-5.1); Sodium Level 132 mmol/L (136-145)
[2024-07-23 09:30] VITALS: BP 92/55; PULSE 65; RESP 18; TEMP 36.6; O2SAT 94
[2024-07-23] MEDS: Insulin Lispro 100 UNIT/ML INSULN.PEN SC ×2 (09:31→12:02)
[2024-07-23] MEDS: Glucerna Shake 120 ML LIQUID PO ×2 (09:31→12:59)
[2024-07-23] MEDS: oxyCODONE 5 MG Tablet PO (09:31)
[2024-07-23] MEDS: Insulin Glargine-YFGN 100 UNIT/ML Pen 15 UNIT SC (09:32)
[2024-07-23] MEDS: metroNIDAZOLE 500 MG Tablet PO ×2 (09:32→12:59)
[2024-07-23] MEDS: Pantoprazole Sodium 40 MG Tablet PO (09:32)
[2024-07-23] MEDS: Insulin Lispro 100 UNIT/ML INSULN.PEN 10 UNIT SC ×2 (09:32→12:02)
[2024-07-23] MEDS: Menthol/Lanolin/Calamine/Znox 113 GM Tube 1 APPLIC TOPICAL (09:33)
[2024-07-23 10:21] LABS: Platelet Estimate ADEQUATE (ADEQ)
[2024-07-23] MEDS: 0.9 % NaCl (Sterile) Posiflush 10 mL IV (12:03)
--- NOTE | 2024-07-23 12:12 | PCM.DC.SUM ---
Providers Date of Admission: 07/11/24 Date of Discharge: 07/23/24 Primary Care Physician: Dr. Reji Levin MD Consultations 07/14/24 12:44 Consult: Gastroenterology Routine Consulting Provider: [facility] Reason for Consult: UC colitis, not improving EMERGENT Consult: No Notified: Yes Date Notified: 07/14/24 Time Notified: 12:44 Method of Notification: Verbal Reason For Visit: HYPOVOLEMIC, ROLO Diagnosis Discharge Diagnosis (1) Orthostatic hypotension: Status: Acute Code(s): I95.1 - Orthostatic hypotension (2) Acute kidney injury: Status: Acute Code(s): N17.9 - Acute kidney failure, unspecified (3) Ulcerative colitis: Status: Acute Code(s): K51.90 - Ulcerative colitis, unspecified, without complications Plan Patient is a 74-year-old gentleman with pancolitis ulcerative colitis presented to the emergency department with bloody diarrhea. Patient was also found to be hypotensive on admission admitted to monitored bed for subsequent management 1. Acute hypotension hypotension ? Secondary to diarrhea from patient underlying colitis. Patient was also found to have lactic acidosis on admission admitted to a monitored bed resuscitated with IV fluid. ? 07/17/2024 hypotension since resolved 2. Acute exacerbation of ulcerative colitis ? Patient presented with hematochezia, diarrhea and hypotension. Patient was resuscitated with IV fluids as discussed above consultation was placed to GI patient seen by Dr. José who recommended initiation of Solu-Medrol as well as mesalamine in addition to Flagyl. Patient underwent subsequent evaluation with an enteric panel which was negative for infectious etiology. Plan is for patient to be discharged home once an approval for outpatient Remicade therapy is obtained. Case management subsequently consulted ? 07/17/2024; patient still remains symptomatic ? 07/18/2024; with patient symptoms recurrent, requested reconsultation with GI Dr. Penny notified ? 07/19/2024;Patient seen finally admitted some improvement in his condition. Patient was seen and evaluated by Dr. Penny with GI plan is for patient to start Remicade as outpatient on , 07/24/2024 ? 07/20/2024;Patient seen no change in clinical condition continues to experience loose bowel movement 07/21/2024;Patient seen finally admitted to some improvement in his diarrhea with less frequent stools. ? 07/22/2024; reports no change in his clinical condition do anticipate discharge in a.m. for initiation of his Remicade at his infusion center ? 07/23/2024;Patient seen still has loose bowel movement however appears to have stabilized to discussed with patient about discharge with plans for patient to follow-up with Dr. Penny as outpatient for initiation of his Remicade 3. Anemia ? Secondary to acute blood loss anemia from patient ulcerative colitis superimposed on chronic disorder monitoring H&H and transfuse if patient becomes symptomatic or hemoglobin falls below 7 4. Hyponatremia ? Secondary to hypovolemic hyponatremia resolved with IV fluid resuscitation subsequent monitoring with daily BMPs ordered 5. Acute kidney injury ? Secondary to volume loss from patient diarrhea creatinine on admission was 1.53 had improved to 0.76 as of 07/16/2024 6. Dyslipidemia ?Patient is on statin therapy, continued at home dose 7. Diabetes mellitus type 2 ? Patient is on metformin held given patient lactic acidosis placed on Accu-Cheks before meals and at bedtime with sliding scale coverage 8. DVT prophylaxis ? Subcu heparin 9. Severe malnutrition -Related to: acute illness related to altered GI function and inadequate oral intake As evidenced by: 5% unintentional weight loss in less than 1 month and PO meeting less than 50% estimated nutrition Time spent in the patient's overall evaluation,decision-making process, review of diagnostic data, adjustment of management, discussion with other providers, nursing nursing and ancillary staff involved in patient's care documentation, 35 Minutes Medications at Discharge Home Medications baclofen 10 mg tablet 10 mg PO TID pain 02/25/21 albuterol sulfate 90 mcg/actuation aerosol inhaler 1 inh inhalation Q6H PRN shortness of breath or wheezing #8.5 grams 02/26/21 pregabalin 150 mg capsule 150 mg PO BID 06/19/24 simvastatin 20 mg tablet 20 mg PO QHS 06/19/24 triamcinolone acetonide 0.5 % topical cream 1 applic topical BID 06/19/24 metformin 1,000 mg tablet 1,000 mg PO BID diabetes 07/12/24 dicyclomine 10 mg capsule 10 mg PO TIDAC #60 caps 07/23/24 mesalamine 500 mg capsule,extended release (Pentasa) 500 mg PO BID pain/inflammation 30 days #60 caps 07/23/24 pantoprazole 40 mg tablet,delayed release 40 mg PO DAILY #30 tabs 01/08/25 prednisone 20 mg tablet 40 mg (2 x 20 mg) PO DAILY 2 weeks #28 tabs 07/23/24 Physical Exam Narrative GENERAL: cooperative HEENT: Atraumatic; normocephalic EYES; Anicteric, Normal Conjunctiva NECK; supple, normal thyroid, RESPIRATORY: Diminished to auscultation CARDIOVASCULAR: Regular S1 S2, GI: soft, normoactive bowel sounds, : No Renal angle tenderness; EXTREMITIES: No edema, no clubbing, MUSCULOSKELETAL: no muscle wasting NEURO: Awake; no lateralizing signs. SKIN: No Rash PSYCH; Flat affect Medical Records Data Medical Nutrition Assessment Dietitian: Malnutrition Criteria Met Start: 07/11/24 16:03 Freq: Status: Active Protocol: Document 07/14/24 15:33 SB (Rec: 07/14/24 15:33 SB [id number]) Nutrition Malnutrition Evidence of Malnutrition Exists Yes Malnutrition (severe): Acute Illness/Injury Evidenced By Suboptimal Energy Intake ( Severe),Weight Loss (Severe) Clinical Problem Acute Disease or Injury Related Malnutrition Etiology Severe protein-calorie malnutrition in the context of acute illness related to altered GI function and inadequate oral intake Signs/Symptoms as evidenced by 5% unintentional weight loss in less than 1 month and PO meeting less than 50% estimated nutrition needs x 2 weeks Status Active Problem Recommendation Dietitian Recommendations/Changes Recommend advanced diet as tolerated to Carbohydrate- Controlled Diet. Will d/c 240mL ensure clear w/ breakfast and dinner trays. Continue 120ml glucerna shakes 4x daily with medpass. Will order vanilla fortified pudding with dinner. Will monitor weight trends. Reviewed and approved by Marita Wu RD, LD. Weight / BMI Weight Weight: 71.4 kg Body Mass Index (BMI) 22.6 ABG / Lab / Microbiology Data 07/23/24 07:15 07/23/24 07:15 Laboratory: Laboratory Results - last 24 hr 07/22/24 12:49: POC Glucose 348 H 07/22/24 16:54: POC Glucose 328 H 07/22/24 20:02: POC Glucose 287 H 07/23/24 07:15: WBC 5.5, RBC 3.18 L, Hgb 8.7 L, Hct 27.9 L, MCV 87.7, MCH 27.4, MCHC 31.2 L, RDW Std Deviation 49.1 H, RDW Coeff of Janice 15.9 H, Plt Count 198, MPV 8.9, Immature Gran % (Auto) 0.700, Neut % (Auto) 89.4 H, Lymph % (Auto) 7.5 L, [place] % (Auto) 2.2, Eos % (Auto) 0.0, Baso % (Auto) 0.2, Absolute Neuts (auto) 4.9, Absolute Lymphs (auto) 0.41 L, Nucleated RBC % 0, Platelet Estimate ADEQUATE, Sodium 132 L, Potassium 4.5, Chloride 100, Carbon Dioxide 25.0, Anion Gap 7, BUN 17, Creatinine 0.67 L, Estim Creat Clear Calc 83.05, Est GFR (MDRD) Af Amer 149, Est GFR (MDRD) Non-Af 123, BUN/Creatinine Ratio 25.3 H, Glucose 243 H, Calcium 7.6 L, Phosphorus 2.7, Magnesium 2.3 07/23/24 08:05: POC Glucose 214 H Microbiology: Microbiology 07/11/24 14:20 Stool Stool Lactoferrin - Final 07/11/24 14:20 Stool Enteric Bacteriology - Final 07/11/24 14:20 Stool Clostridioides difficile (PCR) - Final 07/11/24 14:20 Stool Stool Occult Blood (ARNALDO) - Final Occult Blood Positive 07/11/24 11:23 Mucosa - Nose SARS-CoV-2, Influenza & RSV (PCR) - Final D/C Instructions Discharge Diet: No restrictions Discharge Activity: Return to Normal Activity Call your doctor if you observe: Fever of 101 or Higher, Shortness of breath, Fainting spells and Chest pain DC O2, CPAP, BIPAP Needs Home O2 Discharge instructions: No Meaningful Use Info Meaningful Use Meaningful Use Diagnoses (Choose all that apply): None applicable Ischemic Stroke Statin Dosing Therapy Reference: STATIN DOSE THERAPY REFERENCE: * Patients > 75 years receive moderate or high dose statin therapy. * Patients 75 years or YOUNGER should receive HIGH intensity statin dose unless contraindicated. You will be required to document reason for non-treatment if statin daily dose does not meet guidelines. HIGH DOSE STATIN THERAPY DAILY Atorvastatin > than or = to 40 mg Rosuvastatin > than or = to 20 mg Amlodipine + Atorvastatin > than or = to 2.5/40 mg Ezetimibe + Simvastatin 10/80 mg Simvastatin 80mg Discharge Plan Admission Admit Date/Time: 07/11/24 12:42 Attending Provider: Khris Rodriguez Primary Care Provider: Reji Levin Consulting Providers: Lb Hall Discharge Orders/Prescriptions Prescriptions: New prednisone 20 mg tablet 40 mg PO DAILY 14 Days Qty: 28 0RF pantoprazole 40 mg Tablet,Delayed Release (Dr/Ec) 40 mg PO DAILY Qty: 30 0RF dicyclomine 10 mg Capsule 10 mg PO TIDAC Qty: 60 0RF Continued baclofen 10 mg tablet 10 mg PO TID Patient Comments: take 1 tablet by mouth three times a day albuterol sulfate 90 mcg/actuation HFA aerosol inhaler 1 inh inhalation Q6H PRN (Reason: shortness of breath or wheezing) Qty: 8.5 1RF triamcinolone acetonide 0.5 % cream 1 applic TOPICAL BID Patient Comments: RASH ON LEG simvastatin 20 mg tablet 20 mg PO QHS pregabalin 150 mg capsule 150 mg PO BID metformin 1,000 mg tablet 1,000 mg PO BID mesalamine [Pentasa] 500 mg capsule, extended release 500 mg PO BID 30 Days Qty: 60 0RF Discontinued etodolac 400 mg tablet 400 mg PO BID Patient Comments: take 1 tablet by mouth twice a day diphenoxylate-atropine 2.5-0.025 mg tablet 1 tab PO 4X/DAY Referrals / Follow Up: Reji Levin MD [Primary Care Provider] - Within 1 Week Guicho Penny DO [Med Staff - Active Staff] - Within 1 Week Disposition Disposition (needs filled in before D/C Order can be placed): Home, Self Care Charges/Coding Visit Charges Inpatient E&M: 27020 Disch Hosp >30min
--- NOTE | 2024-07-23 12:31 | CASEMGMT ---
SYDNI PRESTON called [facility] to inquire about Remicade approval with insurance. Per Robbie, authorization just came through at [id number]. SYDNI PRESTON asked to schedule soonest appt for patient. Appt scheduled for patient at [facility] for Remicade infusion tomorrow 07/24/24 1200. SYDNI PRESTON updated hospitalist, patient to discharge home today. SYDNI PRESTON in to update patient. Patient voiced appreciation. Patient denied further needs or concerns at discharge. Patient had no further questions. SYDNI PRESTON updated discharge paperwork to include appt.
[2024-07-23 12:36] LABS: Bedside Glucose 330 mg/dL (74-106)
--- NOTE | 2024-07-23 13:58 | PHA.DC_ITS ---
Pharmacy [facility] has performed discharge medication reconciliation and counseling for this patient. 1. DICYCLOMINE 10MG PO TIDAC 2. PANTOPRAZOLE 40MG PO DAILY 3. PREDNISONE 40MG PO DAILY The patient's discharge medication list was reviewed for discrepancies and discrepancies were resolved. The patient was counseled on the following discharge medications and changes in medications for homegoing were reviewed. The Reason for Use, instructions for use, and potential side effects were reviewed for all new medications. The patient's questions regarding all of their medications were answered. The patient was able to verbally demonstrate an understanding of their discharge medications. Medications at Discharge Home Medications baclofen 10 mg tablet 10 mg PO TID pain 02/25/21 albuterol sulfate 90 mcg/actuation aerosol inhaler 1 inh inhalation Q6H PRN shor tness of breath or wheezing #8.5 grams 02/26/21 pregabalin 150 mg capsule 150 mg PO BID 06/19/24 simvastatin 20 mg tablet 20 mg PO QHS 06/19/24 triamcinolone acetonide 0.5 % topical cream 1 applic topical BID 06/19/24 metformin 1,000 mg tablet 1,000 mg PO BID diabetes 07/12/24 dicyclomine 10 mg capsule 10 mg PO TIDAC #60 caps 07/23/24 mesalamine 500 mg capsule,extended release (Pentasa) 500 mg PO BID pain/inflammation 30 days #60 caps 07/23/24 pantoprazole 40 mg tablet,delayed release 40 mg PO DAILY #30 tabs 07/23/24 prednisone 20 mg tablet 40 mg (2 x 20 mg) PO DAILY 2 weeks #28 tabs 07/23/24
[2024-07-23 14:08] VITALS: BP 103/58; PULSE 71; RESP 18; TEMP 36.4; O2SAT 97
== END 2024-07-23 15:15 | disposition home or self-care (01) | DRG 385 ==
LOC: ED 12:35 → PCU 13:00
PROVIDERS: Internal Medicine Gastroenterology; Admitting Provider Internal Medicine; Emergency Provider Emergency Medicine; PCP Family Medicine; Visit Provider Internal Medicine
DX: K51.018 Ulcerative (chronic) pancolitis with other complication (principal); E43 Unspecified severe protein-calorie malnutrition; E87.20 Acidosis, unspecified; E87.1 Hypo-osmolality and hyponatremia; D62 Acute posthemorrhagic anemia; N17.9 Acute kidney failure, unspecified; D63.8 Anemia in other chronic diseases classified elsewhere; Z66 Do not resuscitate; E86.0 Dehydration; E11.9 Type 2 diabetes mellitus without complications; I95.1 Orthostatic hypotension; E78.00 Pure hypercholesterolemia, unspecified; E86.1 Hypovolemia; F17.220 Nicotine dependence, chewing tobacco, uncomplicated; R19.5 Other fecal abnormalities; Z68.22 Body mass index [BMI] 22.0-22.9, adult; Z79.1 Long term (current) use of non-steroidal anti-inflammatories (NSAID); Z79.84 Long term (current) use of oral hypoglycemic drugs; Z79.899 Other long term (current) drug therapy; Z86.16 Personal history of COVID-19
CPT/HCPCS: 36415; 71045; 74177; 80048; 80076; 81001; 82274; 82962; 83605; 83615; 83630; 83690; 83735; 84100; 84484; 85025; 85610; 85652; 85730; 86140; 87493; 87506; 87631; 93005; 94668; 97802; 97803; 99285; Q9967; A4216

== ENCOUNTER 2024-07-27 13:47 | Inpatient (IN) | payer OTHER, SELFPAY ==
[2024-07-27] VITALS (7 sets, daily range): BP systolic 92–108; BP diastolic 50–63; PULSE 79–94; RESP 16–18; TEMP 36.2–37; O2SAT 97–100; BMI 24.3; BMI 21.5
--- NOTE | 2024-07-27 14:14 | ED.VIS.GI ---
HPI HPI - GI History of Present Illness Chief Complaint: GI Bleed Detail of Chief Complaint: Rectal bleeding Informant: patient Narrative Narrative: Patient presents to the emergency department with complaint of rectal bleeding that started 2 months ago. Patient was just discharged from our hospital due to orthostatic hypotension yesterday. Patient states that he had rectal bleeding every morning while admitted. Patient states that he had a colonoscopy in June with Dr. Penny but is not sure what it showed. He denies any abdominal pain. He complains of feeling lightheaded and dizzy at times. He has had 3-4 bloody stools today. Patient denies anticoagulation. [facility] Medical History Hypertension Irritable bowel Restless legs Diabetes GERD (gastroesophageal reflux disease) GI bleed Ulcerative colitis Alcohol abuse Arthritis Former smoker High cholesterol Diverticulitis Home Medications ?Medication ?Instructions ?Recorded ?Last Taken ?Type baclofen 10 mg tablet 10 mg PO TID pain 02/25/21 02/25/21 07:00 History albuterol sulfate 90 mcg/actuation 1 inh inhalation Q6H PRN shortness 02/26/21 Unknown Rx aerosol inhaler of breath or wheezing #8.5 grams pregabalin 150 mg capsule 150 mg PO BID 06/19/24 06/18/24 History simvastatin 20 mg tablet 20 mg PO QHS 06/19/24 06/18/24 History triamcinolone acetonide 0.5 % 1 applic topical BID 06/19/24 Unknown History topical cream metformin 1,000 mg tablet 1,000 mg PO BID diabetes 07/12/24 07/11/24 History dicyclomine 10 mg capsule 10 mg PO TIDAC #60 caps 07/23/24 Unknown Rx mesalamine 500 mg capsule,extended 500 mg PO BID pain/inflammation 30 07/23/24 Unknown Rx release (Pentasa) days #60 caps pantoprazole 40 mg tablet,delayed 40 mg PO DAILY #30 tabs 07/23/24 Unknown Rx release prednisone 20 mg tablet 40 mg (2 x 20 mg) PO DAILY 2 weeks 07/23/24 Unknown Rx #28 tabs Allergy/AdvReac Type Severity Reaction Status Date / Time ibuprofen AdvReac Upset Verified 07/27/24 13:48 Stomach Family History Mother COPD (chronic obstructive pulmonary disease) Father Myocardial infarction Social History Smoking Status: Former smoker alcohol intake: current alcohol intake frequency: 3 or more drinks per day Alcohol type: beer details: Patient states that he drinks a 12 pack/day of 12 ounce beers substance use type: does not use ROS ROS ED Review of Systems ROS Unobtainable: other Constitutional Constitutional ED: Reports lethargy; Denies chills, fever(s), sweats or weight loss Eyes Eyes: Denies blurry vision, change in vision or diplopia ENT ENT ED: Denies rhinorrhea or sore throat Cardiovascular Cardiovascular: Denies chest pain, orthopnea or racing heartbeat Respiratory/Chest Respiratory/Chest: Denies cough, dyspnea, dyspnea on exertion, orthopnea or sputum Gastrointestinal Gastrointestinal: Reports other Details: Rectal bleeding ; Denies abdominal pain, diarrhea, nausea or vomiting Genitourinary Genitourinary ED: Denies dysuria, hematuria or urinary frequency Musculoskeletal Musculoskeletal: Denies arthralgias, back pain, myalgias or neck pain Integumentary Denies abscess, Abrasions or rash Neurologic Neurologic: Denies headache(s) or weakness Psychiatric Psychiatric: Denies anxiety, depression or suicidal thoughts Endocrine Endocrinology: Denies polydipsia, polyphagia or polyuria Hematologic/Lymphatic Hematologic/Lymphatic: Denies easy bleeding, easy bruising or lymphadenopathy Allergic/Immunologic Allergic/Immunologic ED: Denies mouth swelling, tongue swelling or urticaria EXAM Physical Exam Const Vital Signs: 07/27/24 13:48 07/27/24 15:47 07/27/24 16:24 Temperature 97.2 F L Temperature Source Temporal Pulse Rate 92 82 Pulse Rate [Lying] 83 Pulse Rate [Sitting (for 1 minute prior to obtaining)] 94 Respiratory Rate 18 16 Blood Pressure 97/63 99/59 L Blood Pressure [Lying] 106/53 L Blood Pressure [Sitting (for 1 minute prior to obtaining)] 93/63 Blood Pressure Mean 74 72 Blood Pressure Mean [Lying] 70 Blood Pressure Mean [Sitting (for 1 minute prior to obtaining)] 73 Pulse Ox 97 100 Oxygen Delivery Method Room Air Room Air Positive well nourished and well developed General Appearance ED: well developed and NAD HEENT Reports TM's clear and moist mucous membranes normocephalic and atraumatic; Negative for trauma or tenderness Tympanic Membrane ED: Yes TM's clear Eyes PERRL and EOMs intact bilaterally General Eye ED: Negative for pale conjunctiva or scleral icterus Neck no lymphadenopathy, supple and no JVD General: Negative for tenderness Chest Wall inspection of chest normal and palpation of chest normal Chest: Negative for tenderness Resp normal respiratory effort and clear to auscultation bilaterally Effort and Inspection: Negative for respiratory distress or pain with movement Auscultation: Negative for rhonchi, wheezes or diminished lung sounds Cardio regular rate, regular rhythm, S1 normal heart sound, S2 normal heart sound and no murmurs Peripheral Pulses: pulses 2+ throughout GI normal to inspection, nondistended, normoactive bowel sounds, soft to palpation, non-tender, non-distended and no masses Back/Spine no CVA tenderness and no thoracic nor lumbar tenderness Extremity normal to inspection General Extremety ED: Negative for edema General Extremity: Negative for edema Neuro oriented x3, CN's II-XII intact bilaterally, no sensory deficits noted and gait normal Sensorium / Orientation: awake, alert, oriented to person, oriented to place and oriented to time Motor Exam: strength 5/5 throughout and strength abnormal Psych mental status grossly normal Skin no rashes or lesions noted and no wounds MDM MDM MDM Narrative Medical decision making narrative: Patient presents to the emergency department with rectal bleeding and generalized weakness with recent admission to the hospital for orthostatic hypotension due to colitis and chronic diarrhea. IV line established. I did do a rectal exam that showed brown stool that did come back Hemoccult positive. He was ordered a liter saline fluid bolus. Patient had orthostatic vital signs and unable to stand due to generalized weakness and dizziness. I discussed case with Dr. Penny who is the steak sauce maker of record that that his colonoscopy. Apparently patient recently started receiving Remicade. Dr. Penny asked that we increase patient's prednisone to 60 mg daily from 40 mg daily. At this point given patient's ongoing weakness and difficulty standing and walking will admit for hydration and further management. Lab Data Attestation: I reviewed the patient's lab results. Labs: Laboratory Results - last 24 hr 07/27/24 15:13 WBC 3.8 L RBC 3.76 L Hgb 10.6 L Hct 34.4 L MCV 91.5 MCH 28.2 MCHC 30.8 L RDW Std Deviation 57.1 H RDW Coeff of Janice 17.2 H Plt Count 192 MPV 9.2 Immature Gran % (Auto) 4.800 H Neut % (Auto) 74.4 H Lymph % (Auto) 16.[address] [place] % (Auto) 2.4 Eos % (Auto) 0.8 Baso % (Auto) 0.8 Absolute Neuts (auto) 2.8 Absolute Lymphs (auto) 0.63 L Nucleated RBC % 1.6 PT 13.3 INR 1.0 Sodium 135 L Potassium 4.2 Chloride 105 Carbon Dioxide 27.0 Anion Gap 3 L BUN 8 Creatinine 0.64 L Estim Creat Clear Calc 87.59 Est GFR (MDRD) Af Amer 158 Est GFR (MDRD) Non-Af 131 BUN/Creatinine Ratio 12.5 Glucose 160 H Calcium 8.0 L Blood Type A POSITIVE Antibody Screen NEGATIVE Discharge Plan Triage Chief Complaint: GI Bleed ED Provider: Dale Gooden Dx/Rx/DC Orders Clinical Impression: Rectal bleed, Colitis, Hypotension, Weakness Prescriptions: No Action baclofen 10 mg tablet 10 mg PO TID Patient Comments: take 1 tablet by mouth three times a day albuterol sulfate 90 mcg/actuation HFA aerosol inhaler 1 inh inhalation Q6H PRN (Reason: shortness of breath or wheezing) Qty: 8.5 1RF triamcinolone acetonide 0.5 % cream 1 applic TOPICAL BID Patient Comments: RASH ON LEG simvastatin 20 mg tablet 20 mg PO QHS pregabalin 150 mg capsule 150 mg PO BID metformin 1,000 mg tablet 1,000 mg PO BID prednisone 20 mg tablet 40 mg PO DAILY 14 Days Qty: 28 0RF pantoprazole 40 mg Tablet,Delayed Release (Dr/Ec) 40 mg PO DAILY Qty: 30 0RF dicyclomine 10 mg Capsule 10 mg PO TIDAC Qty: 60 0RF mesalamine [Pentasa] 500 mg capsule, extended release 500 mg PO BID 30 Days Qty: 60 0RF Primary Care Provider: Reji Levin Referrals: Reji Levin MD [Primary Care Provider] - Print Language: Yoruba Disposition Disposition: Acute Care [facility]
[2024-07-27] MEDS: 0.9% Normal Saline (1000mL) 1,000 ML 999 ML IV (14:32)
[2024-07-27 15:42] LABS: Anion Gap 3 (5-15); BUN 8 mg/dL (7-18); BUN/Creat Ratio 12.5 RATIO (10-20); Chloride 105 mmol/L (98-107); Creatinine, Serum 0.64 mg/dL (0.70-1.30); EST Glomerular Filtration Rate 131 mL/min (>60); Est Glom Filt Rate - Afr Amer 158 mL/min (>60); Estimated Creatinine Clearance 87.59 ml/min; Glucose 160 mg/dL (74-106); Potassium 4.2 mmol/L (3.5-5.1); Sodium Level 135 mmol/L (136-145)
[2024-07-27 15:55] LABS: Absolute Lymphocyte Count 0.63 X10^3/uL (0.83-4.51); Absolute Neutrophil Count 2.8 X10^3/uL (2.0-7.7); Basophil# 0.03 X10^3/uL; Basophil% 0.8 % (0-1); Eosinophil# 0.03 X10^3/uL; Eosinophils% 0.8 % (0-5); Hematocrit 34.4 % (40-54); Hemoglobin 10.6 g/dL (13.0-16.5); Lymphocyte # 0.63 X10^3/ul (0.83-4.51); Lymphocyte % 16.8 % (19-41); Mean Corp Hgb Conc 30.8 g/dL (32-36); Mean Corpuscular Hgb 28.2 pg (27.0-32.0); Mean Corpuscular Volume 91.5 fL (80-94); Mean Platelet Vol. 9.2 fl (6.2-12.0); Monocyte# 0.09 X10^3/uL; Monocyte% 2.4 % (0-10); NRBC Flagged by Analyzer 1.6 % (0-5); Neutrophil # 2.79 X10^3/uL (2.7-7.7); Neutrophil % 74.4 % (47-70); POSITIVE MORPHOLOGY YES; Platelet Count 192 K/mm3 (150-450); RBC Distribution Width CV 17.2 % (11.6-14.6); RBC Distribution Width SD 57.1 fl (35.1-43.9); Red Blood Count 3.76 M/mm3 (4.6-6.2); White Blood Count 3.8 K/mm3 (4.4-11.0)
[2024-07-27 15:59] LABS: Prothrombin Time (Protime)PT. 13.3 SECONDS (11.7-14.9)
[2024-07-27 16:07] LABS: Differential Indicated SCAN CRITERIA MET
--- NOTE | 2024-07-27 16:50 | HP.PCM.HOS_ITS ---
HPI - General General Date of Admission: 07/27/24 Date of Service: 07/27/24 Chief Complaint: LH/Dizziness, ongoing bloody stools. HPI Narrative The patient is a 74 y/o M w/ PMHx: HTN, HLD, Former tobacco use, GERD w/ Hx GI bleed, EtOH abuse history, RLS, Ulcerative colitis, Diabetes mellitus type II w/ recent discharge 07/23/2024 following evaluation and treatment of acute on chronic anemia secondary to acute blood loss, hyponatremia related to hypovolemia, acute kidney injury also related to GI losses with hypotension associated with severe diarrhea secondary to underlying colitis with ulcerative colitis exacerbation with hematochezia and diarrhea with as noted low blood pressures evaluated by gastroenterology with initiation of IV Solu-Medrol as well as mesalamine in addition to Flagyl with enteric pathogen negative discharged home following approval for outpatient Remicade therapy now representing to the [facility] ED on 07/27/24 secondary to persistent lightheadedness and dizziness intermittently with ongoing 3-4 bloody stools per day prompting ED return. Workup in the ED included T97.2, heart 92, BP 97/63, respiratory rate 18, 97% room air with similar BPs on 07/23/2024 of note and orthostatics not severe appearing in the ED, CBC with WBC 3.8, human 10.6, platelet 192 with increased immature granulocytes and lymphopenia, unremarkable coags, BMP with sodium 135, BUN/creatinine 8/0.64, GFR 131, glucose 160, lactic acid pending, stool guaiac specimen positive however it was noted to be brown in the ED upon ED physician evaluation. Patient noted he has already started remicade outpatient. ED discussed case with Dr. Penny who noted expected continued rectal bleeding that would take time to alleviate once remicade effective and recommended discharge to home with increase of prednisone to 60 mg daily. Staff did attempt to get patient up to ambulate to get patient back to home however he was extremely debilitated and could not even ambulate felt significantly unsafe for home. Patient is amenable to skilled placement if necessary. [facility] Medical History Hypertension Irritable bowel Restless legs Diabetes GERD (gastroesophageal reflux disease) GI bleed Ulcerative colitis Alcohol abuse Arthritis Former smoker High cholesterol Diverticulitis Home Medications ?Medication ?Instructions ?Recorded ?Last Taken ?Type baclofen 10 mg tablet 10 mg PO TID pain 02/25/21 07/27/24 History albuterol sulfate 90 mcg/actuation 1 inh inhalation Q6H PRN shortness 02/26/21 Unknown Rx aerosol inhaler of breath or wheezing #8.5 grams pregabalin 150 mg capsule 150 mg PO BID . 06/19/24 07/27/24 History simvastatin 20 mg tablet 20 mg PO QHS . 06/19/24 07/26/24 History triamcinolone acetonide 0.5 % 1 applic topical BID RASH 06/19/24 Unknown History topical cream metformin 1,000 mg tablet 1,000 mg PO BID diabetes 07/12/24 07/27/24 History dicyclomine 10 mg capsule 10 mg PO TIDAC . #60 caps 07/23/24 07/27/24 Rx mesalamine 500 mg capsule,extended 500 mg PO BID pain/inflammation 30 07/23/24 07/27/24 Rx release (Pentasa) days #60 caps pantoprazole 40 mg tablet,delayed 40 mg PO DAILY GERD #30 tabs 07/23/24 07/27/24 Rx release prednisone 20 mg tablet 40 mg (2 x 20 mg) PO DAILY . 2 07/23/24 07/27/24 Rx weeks #28 tabs Allergy/AdvReac Type Severity Reaction Status Date / Time ibuprofen AdvReac Upset Verified 07/27/24 17:03 Stomach Family History Mother COPD (chronic obstructive pulmonary disease) Father Myocardial infarction Surgical History S/P colonoscopy S/P endoscopy Social History (Updated 07/27/24 @ 19:[address] Ronel Lang MD) household members: spouse Smoking Status: Former smoker alcohol intake: current alcohol intake frequency: 3 or more drinks per day Alcohol type: beer details: Patient states that he drinks a 12 pack/day of 12 ounce beers substance use type: does not use ROS ROS Narrative Admission Review of Systems: CONSTITUTIONAL: No weight loss, fever, chills, + weakness or fatigue. HEENT: + Lightheadedness, dizziness especially with exertion at times. Eyes: No visual loss, blurred vision, double vision or yellow sclerae. Ears, Nose, Throat: No hearing loss, sneezing, congestion, runny nose or sore throat. SKIN: No rash or itching, lesions, wounds. CARDIOVASCULAR: + Lightheadedness, dizziness with exertion at times. No chest pain, chest pressure or chest discomfort, palpitations, edema, orthopnea, syncopal events. RESPIRATORY: No shortness of breath, cough or sputum, wheezing, hemoptysis. GASTROINTESTINAL: + Still mildly decreased appetite, ongoing bloody bowel movements/hematochezia, occasional loose stools. No nausea, vomiting, abdominal pain, melena. GENITOURINARY: No dysuria, frequency, urgency or retention. NEUROLOGICAL: + Persistent lightheadedness/dizziness worse with exertion. No headache, syncope, paralysis, ataxia, numbness or tingling in the extremities, focal weakness, change in bowel or bladder control, seizure. MUSCULOSKELETAL: + muscle, back pain, joint pain or stiffness. HEMATOLOGIC: + Chronic anemia, easy bleeding/bruising LYMPHATICS: No enlarged nodes. No history of splenectomy. PSYCHIATRIC: No history of depression or anxiety. ENDOCRINOLOGIC: No reports of sweating, cold or heat intolerance. No polyuria or polydipsia. ALLERGIES: No history of asthma, hives, eczema or rhinitis. Vital Signs Vital Signs Vital Signs: 07/27/24 13:48 07/27/24 15:47 07/27/24 16:24 Temperature 97.2 F L Temperature Source Temporal Pulse Rate 92 82 Pulse Rate [Lying] 83 Pulse Rate [Sitting (for 1 minute prior to obtaining)] 94 Respiratory Rate 18 16 Blood Pressure 97/63 99/59 L Blood Pressure [Lying] 106/53 L Blood Pressure [Sitting (for 1 minute prior to obtaining)] 93/63 Blood Pressure Mean 74 72 Blood Pressure Mean [Lying] 70 Blood Pressure Mean [Sitting (for 1 minute prior to obtaining)] 73 Pulse Ox 97 100 Oxygen Delivery Method Room Air Room Air Weight Weight: 173 lb 15.115 oz Body Mass Index (BMI) 24.3 Physical Exam Narrative Physical Examination: General: Awake, alert, oriented x 3 and cooperative, seated upright in ED bed, fatigued, notes just feeling weak, discussed plan of care and patient is amenable to coming in for potential skilled facility placement and understands that unfortunately he will still have some bleeding until Remicade becomes effective, also discussed plan to increase prednisone to 60 mg per GI recommendation. Skin: Normal color, normal turgor, no icterus, no cyanosis except very staged ecchymoses, abrasions HEENT: AT/NC, EOMI, PERRLA, mildly dry MM, no carotid bruits or JVD noted. Lungs: Diminished, greater bases, poor effort, no rales, ronchi or wheezing. Heart: Regular rate and rhythm; no gallop, rub audible. Abdomen: Soft, NTTP, ND, mildly hyperactive BS, no markedly appreciated HSM. Extremities: No cyanosis, clubbing, or edema, evidence of muscle/fat loss. Neurological: Patient awake, alert, oriented as noted, cognitive function intact; pupils equally reactive to light and accommodation, cranial nerves grossly normal, moving all 4 extremities, no focal deficits, strength severely globally decreased. Psychiatric: Affect appears flat, fatigued, no acute evidence of depressive or anxiety feelings. Results Lab / Micro Data 07/27/24 15:13 07/27/24 15:13 Labs: Laboratory Results - last 24 hr 07/27/24 15:13: WBC 3.8 L, RBC 3.76 L, Hgb 10.6 L, Hct 34.4 L, MCV 91.5, MCH 28.2, MCHC 30.8 L, RDW Std Deviation 57.1 H, RDW Coeff of Janice 17.2 H, Plt Count 192, MPV 9.2, Immature Gran % (Auto) 4.800 H, Neut % (Auto) 74.4 H, Lymph % (Auto) 16.8 L, Richardson % (Auto) 2.4, Eos % (Auto) 0.8, Baso % (Auto) 0.8, Absolute Neuts (auto) 2.8, Absolute Lymphs (auto) 0.63 L, Nucleated RBC % 1.6, PT 13.3, INR 1.0, Sodium 135 L, Potassium 4.2, Chloride 105, Carbon Dioxide 27.0, Anion Gap 3 L, BUN 8, Creatinine 0.64 L, Estim Creat Clear Calc 87.59, Est GFR (MDRD) Af Amer 158, Est GFR (MDRD) Non-Af 131, BUN/Creatinine Ratio 12.5, Glucose 160 H , Calcium 8.0 L, Blood Type A POSITIVE, Antibody Screen NEGATIVE Micro: Microbiology 07/27/24 15:15 Stool Stool Occult Blood (ARNALDO) - Final Occult Blood Positive Assessment & Plan Assessment/Plan (1) Weakness: PLAN: Plan The patient is a 74 y/o M w/ PMHx: HTN, HLD, Former tobacco use, GERD w/ Hx GI bleed, EtOH abuse history, RLS, Ulcerative colitis, Diabetes mellitus type II w/ recent discharge 07/23/2024 following evaluation and treatment of acute on chronic anemia secondary to acute blood loss, hyponatremia related to hypovolemia, acute kidney injury also related to GI losses with hypotension associated with severe diarrhea secondary to underlying colitis with ulcerative colitis exacerbation with hematochezia and diarrhea with as noted low blood pressures evaluated by gastroenterology with initiation of IV Solu-Medrol as well as mesalamine in addition to Flagyl with enteric pathogen negative discharged home following approval for outpatient Remicade therapy now representing to the [facility] ED on 07/27/24 secondary to persistent lightheadedness and dizziness intermittently with ongoing 3-4 bloody stools per day prompting ED return. #1. Significant debility, weakness, adult failure to thrive complicated by recent acute ulcerative colitis flare with associated GI bleeding, acute blood loss anemia during previous presentation as a result: Current presentation with hemoglobin 10.6, MCV 91.5, stable from recent discharge, given patient inability to safely return to home, inability to being ambulate safely in ED with high fall risk will admit to medical surgical floor, maintain on fall precautions, will increase steroid regimen to 60 mg prednisone daily per GI recommendation, continue mesalamine, will continue GI consultation, continue to monitor I's and O's with understanding that likely patient will continue to have some rectal/GI bleeding/hematochezia, we will continue to just hydration, PT/OT/case management consulted with likely need for transitional care versus skilled placement. Patient will need to continue Remicade as this will be the most helpful in alleviating his current symptoms. #2. Hyponatremia, appears chronic but suspect associated hypovolemic component in addition: Admission CMP with sodium 135, chloride 105, will judiciously hydrate and repeat CMP in AM. #3. Normocytic anemia, recent acute blood loss anemia on chronic normocytic anemia secondary to ulcerative colitis flare: Current presentation with hemoglobin 10.6, previous 07/23/2024 hemoglobin 8.7, has vacillated, MCV 91.5, will continue to trend CBC. #4. Severe protein calorie malnutrition: Evidenced by reduced BMI, obvious muscle and fat loss, GI losses, nutrition consulted for recommendations, mag and Phos levels requested. #5. Alcohol abuse history: Patient previously with a 12 pack of beer daily, no intake since recent admission and discharge, mag and Phos levels requested, encourage continued sobriety, case management consulted and following. Maintain on folic acid and vitamin B12 supplementation. #6. Diabetes mellitus type II: Hold oral home regimen, continue ADA diet, accu checks w/ ISS. #7. Hypertension: Noted history, BP low, per current list does not appear to be on any regimen, will continue to monitor. #8. Hyperlipidemia: We will continue patient on statin therapy. #9. Former tobacco usage: Encourage continued tobacco cessation. #10. Restless leg syndrome: Does not appear to be on any regimen, verifying baclofen usage is status remote, may add Requip or similar regimen if necessary. #11. DVT prophylaxis: SCDs. #12. CODE status: Patient notes his [place] would be his medical decision- maker if necessary. Discussed CODE status at length including difference between FULL code, DNR-CCA and DNR-CC status. Following discussions about the differences in these status, requested DNR-CCA, no intubation. Advanced Care Planning Face to Face Time: 16 minutes. Charges/Coding Visit Charges Inpatient E&M: 58095 Init Hosp L2 Procedures Hospitalists Procedures: 13590 Advncd Care Plan 30 Min
[2024-07-27 16:55] LABS: Differential Comment SCANNED
[2024-07-27 17:02] LABS: Lactic Acid 2.5 mmol/L (0.4-1.9)
[2024-07-27 17:28] LABS: Phosphorus 2.8 mg/dL (2.5-4.9)
[2024-07-27] MEDS: Glucerna Shake 120 ML LIQUID PO (18:18)
[2024-07-27] MEDS: 0.9% Normal Saline (1000mL) 1,000 ML 100 ML IV (18:18)
[2024-07-27] MEDS: predniSONE 20 MG Tablet PO (19:00)
[2024-07-27 20:19] LABS: Reflex Lactate? Y
[2024-07-27] MEDS: Pregabalin 75 MG Capsule 150 MG PO (21:23)
[2024-07-27] MEDS: Baclofen 10 MG Tablet PO (21:23)
[2024-07-27] MEDS: Atorvastatin Calcium 10 MG Tablet PO (21:23)
[2024-07-27 21:35] LABS: Bedside Glucose 159 mg/dL (74-106)
[2024-07-27 22:12] LABS: Lactic Acid 2.4 mmol/L (0.4-1.9)
[2024-07-27] MEDS: 0.9% Normal Saline (1000mL) 1,000 ML 500 ML IV (23:12)
[2024-07-28] VITALS (7 sets, daily range): BP systolic 94–124; BP diastolic 52–84; PULSE 72–82; RESP 16–18; TEMP 36.3–36.9; O2SAT 95–98; BMI 21.5
[2024-07-28 03:04] LABS: Lactic Acid 1.4 mmol/L (0.4-1.9)
[2024-07-28] MEDS: Acetaminophen 325 MG Tablet 650 MG PO (03:39)
[2024-07-28] MEDS: Baclofen 10 MG Tablet PO ×2 (05:34→14:54)
[2024-07-28] MEDS: Dicyclomine 10 MG Capsule PO ×3 (05:34→16:53)
[2024-07-28] MEDS: Insulin Lispro 100 UNIT/ML INSULN.PEN SC ×2 (06:07→16:53)
[2024-07-28 06:21] LABS: Absolute Lymphocyte Count 0.67 X10^3/uL (0.83-4.51); Absolute Neutrophil Count 2.2 X10^3/uL (2.0-7.7); Eosinophil# 0.02 X10^3/uL; Eosinophils% 0.7 % (0-5); Hematocrit 25.9 % (40-54); Lymphocyte # 0.67 X10^3/ul (0.83-4.51); Lymphocyte % 22.5 % (19-41); Mean Corp Hgb Conc 30.9 g/dL (32-36); Mean Corpuscular Hgb 27.7 pg (27.0-32.0); Mean Corpuscular Volume 89.6 fL (80-94); Mean Platelet Vol. 8.6 fl (6.2-12.0); Monocyte# 0.13 X10^3/uL; Monocyte% 4.4 % (0-10); NRBC Flagged by Analyzer 0 % (0-5); Neutrophil # 2.15 X10^3/uL (2.7-7.7); Neutrophil % 72.1 % (47-70); Platelet Count 157 K/mm3 (150-450); RBC Distribution Width SD 55.1 fl (35.1-43.9); Red Blood Count 2.89 M/mm3 (4.6-6.2)
[2024-07-28 06:23] LABS: Bedside Glucose 153 mg/dL (74-106)
[2024-07-28 06:57] LABS: ALB/GLOB Ratio 0.4 RATIO (0.9-2.4); AST(SGOT) 12 U/L (15-37); Alanine Aminotransfer ALT/SGPT 21 U/L (16-61); Albumin, Serum 1.3 g/dL (3.2-5.0); Alkaline Phosphatase 59 U/L (45-117); Anion Gap 3 (5-15); BUN 6 mg/dL (7-18); Calcium,Total 7.5 mg/dL (8.5-10.1); Chloride 106 mmol/L (98-107); Creatinine, Serum 0.43 mg/dL (0.70-1.30); EST Glomerular Filtration Rate 206 mL/min (>60); Est Glom Filt Rate - Afr Amer 249 mL/min (>60); Estimated Creatinine Clearance 81.42 ml/min; Globulin 3.2 g/dL (2.2-4.2); Glucose 168 mg/dL (74-106); Potassium 3.9 mmol/L (3.5-5.1); Protein, Total 4.5 g/dL (6.4-8.2); Sodium Level 135 mmol/L (136-145)
[2024-07-28] MEDS: Pantoprazole Sodium 40 MG Tablet PO (09:38)
[2024-07-28] MEDS: predniSONE 20 MG Tablet 60 MG PO (09:38)
[2024-07-28] MEDS: Menthol/Lanolin/Calamine/Znox 113 GM Tube 1 APPLIC TOPICAL ×4 (09:39→21:36)
[2024-07-28] MEDS: Folic Acid 1 MG Tablet PO (09:39)
[2024-07-28] MEDS: Thiamine Hydrochloride 100 MG Tablet PO (09:39)
[2024-07-28] MEDS: Pregabalin 75 MG Capsule 150 MG PO ×2 (09:42→21:42)
[2024-07-28 12:16] LABS: Bedside Glucose 130 mg/dL (74-106)
--- NOTE | 2024-07-28 12:19 | CASEMGMT ---
Discharge Planning A list of?SNF providers including quality and resource use data and consistent with the patient's preferred geographic region, medical needs, and insurance network was created in [facility] Guide.? This list was provided to the RN KARY. Kaity Ramirez, Discharge Planning Asst.
--- NOTE | 2024-07-28 12:30 | CASEMGMT ---
SYDNI PRESTON chart review: Patient was admitted 07/11/24-07/23/24 for hypovolemia, ROLO, ulcerative colitis. See SYDNI PRESTON assessment from 06/20/24 and readmission note from 07/11/24. Patient was discharged to home with appointment for Outpatient IV Remicade on 07/24/23 and family support. Patient returned to [facility] ED on 07/27/24 for lightheadedness/dizziness and continued bloody stools. ED contacted Dr. Penny who suggested to increase prednisone to 60mg daily and send patient home. Patient felt weak and had difficulty ambulating and was admitted for GI bleed and adult FTT. SYDNI PRESTON in to discuss readmission and discharge planning. Patient states he attended his Outpatient infusion on 07/24/24. Patient states he was taking medications as prescribed. Patient returned prior to follow-up appts. SYDNI PRESTON reviewed progress with therapy, min assist x1 for 20feet with recommendation for SNF at discharge. SYDNI PRESTON discussed HHC vs SNF with patient, patient unsure of what he want to do at discharge. Patient called on speaker phone. RN CM updated regarding progress with therapy and recommendation. RN CM reviewed therapy with HHC vs SNF. After discussions, patient and agreeable to SNF at discharge. SYDNI PRESTON provided SNF list to patient. Patient prefers [facility]. SYDNI PRESTON asked patient to review list for addition recommendation but would start with [facility]. Patient and had no further questions or concerns. SYDNI PRESTON updated SW and discharge logistics and planning manager. CM will continue to follow this patient and plan for a safe discharge.
--- NOTE | 2024-07-28 12:46 | CASEMGMT ---
Addendum entered by Kaity Ramirez 07/28/24 16:21: [facility] only has 1 male bed and they are entertaining another referral. They are unable to give answer on this referral until they have rec'd additional information on the other. SW update. Kaity Ramirez DC Planning Asst. Original Note: Discharge Planning Referral sent to [facility]. Kaity Ramirez DC Planning Asst.
--- NOTE | 2024-07-28 15:06 | CHAPLAIN ---
Type of Pastoral Visit _x__ Initial Visit ___ Follow-up Visit ___ On-call Visit ___ General Patient Visit ___ Spiritual Assessment ___ Family Conference ___ Bereavement ___ Rapid Response ___ Code Blue ___ Other (describe below) Pastoral Care Referral From _x__ Patient ___ Family ___ Nurse ___ Physician ___ Assessment Coordinator ___ Woodworking Machine Feeder ___ Other (describe below) Sacrament/Intervention _x__ Active listening ___ Anointing ___ Gnosticism ___ Bereavement ___ Communion ___ [place] exploration ___ _x__ Life review _x__ Prayer ___ Reconciliation ___ Sacrament of Sick _x__ Supportive presence ___ Wedding ___ Other (describe below) Pastoral Comments patient has been seen recently in a prior admission; pt speaks about his return and hopes to stay home; 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
--- NOTE | 2024-07-28 16:20 | PN.HOSP_ITS ---
Reason for Visit Reason for Visit: Diagnoses Weakness (07/27/24) Objective Data Objective Data Vital Signs: Vital Signs Temp Pulse Resp BP Pulse Ox O2 Del Method 97.4 F L 80 18 94/52 L 97 Room Air 07/28/24 15:00 07/28/24 15:00 07/28/24 15:00 07/28/24 15:00 07/28/24 15:00 07/28/24 15:00 Oxygen Delivery Method Room Air Weight: 154 lb 5.177 oz Body Mass Index (BMI) 21.5 Intake & Output: Intake and Output for Last 24 Hours 07/26/24 07/27/24 07/28/24 23:59 23:59 23:59 Intake Total 1690 / 1840 1390 / 1390 Output Total 300 / 300 Balance 1690 / 1540 1090 / 1090 Medical Nutrition Assessment Dietitian: Malnutrition Criteria Met Start: 07/28/24 11:05 Freq: Status: Active Protocol: Document 07/28/24 15:20 SB (Rec: 07/28/24 15:20 SB [id number]) Nutrition Malnutrition Evidence of Malnutrition Exists Yes Evidenced By Suboptimal Energy Intake ( Severe),Weight Loss (Severe) Clinical Problem Acute Disease or Injury Related Malnutrition Etiology severe protein-calorie malnutrition in the context of acute illness related to altered GI function and inadequate oral intake Signs/Symptoms as evidenced by 2% unintentional weight loss x 1 week and PO meeting <75% of estimated nutrition needs x 2- 3 weeks. Status Active Problem Recommendation Dietitian Recommendations/Changes Continue 1800 calorie controlled/consistent carbohydrate diet. Continue 120ml glucerna shake 4x daily with medpass. Will order vanilla fortified pudding with dinner tray. Will monitor weight trends. Reviewed and approved by Marita Wu, LILO,LD. Lab / Micro Data 07/28/24 06:00 07/28/24 06:00 Labs: Laboratory Results - last 24 hr 07/27/24 15:13: Differential Comment SCANNED, Phosphorus 2.8, Magnesium 2.0, Blood Type A POSITIVE, Antibody Screen NEGATIVE 07/27/24 16:12: Lactic Acid 2.5 H* 07/27/24 21:06: Lactic Acid 2.4 H* 07/27/24 21:14: POC Glucose 159 H 07/28/24 02:18: Lactic Acid 1.4 07/28/24 06:00: WBC 3.0 L, RBC 2.89 L, Hgb 8.0 L, Hct 25.9 L, MCV 89.6, MCH 27.7, MCHC 30.9 L, RDW Std Deviation 55.1 H, RDW Coeff of Janice 17.0 H, Plt Count 157, MPV 8.6, Immature Gran % (Auto) 0.300, Neut % (Auto) 72.1 H, Lymph % (Auto) 22.5, [place] % (Auto) 4.4, Eos % (Auto) 0.7, Baso % (Auto) 0.0, Absolute Neuts (auto) 2.2, Absolute Lymphs (auto) 0.67 L, Nucleated RBC % 0, Sodium 135 L, Potassium 3.9, Chloride 106, Carbon Dioxide 26.0, Anion Gap 3 L, BUN 6 L, C reatinine 0.43 L, Estim Creat Clear Calc 81.42, Est GFR (MDRD) Af Amer 249, Est GFR (MDRD) Non-Af 206, BUN/Creatinine Ratio 14.0, Glucose 168 H, Calcium 7.5 L, Total Bilirubin 0.40, AST 12 L, ALT 21, Alkaline Phosphatase 59, Total Protein 4.5 L, Albumin 1.3 L, Globulin 3.2, Albumin/Globulin Ratio 0.4 L 07/28/24 06:01: POC Glucose 153 H 07/28/24 11:46: POC Glucose 130 H Micro: Microbiology 07/28/24 05:32 Stool Enteric Bacteriology - Final 07/28/24 05:32 Stool C. difficile GDH Antigen & Toxins - Final 07/28/24 05:32 Stool Clostridioides difficile (PCR) - Final 07/27/24 15:15 Stool Stool Occult Blood (ARNALDO) - Final Occult Blood Positive Physical Exam Narrative Seen and examined. Patient admitted with diarrhea and rectal bleeding that has been ongoing for 2 months. He was discharged on 07/23 and then admitted on 07/27. Physical exam General: Alert, Oriented x3, Cooperative. BMI 21.5 kg/m? HEENT: Atraumatic, PERRLA, EOMI, Normocephalic Oral: Oral mucosa is dry. No Gingival or Mucosal Lesions/ Ulcerations Neck: Supple, No JVD, Negative Carotid Bruits Chest wall/Lungs: Air entry diminished in bilateral lung bases. No crepitation/rhonchi Cardiovascular: Regular rate, Regular Rhythm, Normal S1, Normal S2, No M/G/R Abdomen: Bowel Sounds Present, Soft, Non Tender, Non-Distended. Liquid BM. : No dysuria. No renal angle tenderness. No suprapubic tenderness. Extremities: No edema, Capillary Refill Less than 3 Seconds Skin: No rashes, No breakdown Musculoskeletal: No Tenderness to Palpation of Joints or Extremities, loss of subcutaneous fat and decreased muscle bulk. Neurological: Cranial nerves II-XII grossly intact, DTR 2+/4. No acute focal neurological deficit. Psych/Mental Status: Flat affect Assessment & Plan Assessment/Plan (1) Weakness: PLAN: Plan Patient is a 74-year-old gentleman with pancolitis ulcerative colitis is a readmission after discharge for the same diagnosis of diarrhea with hematochezia. Patient was feeling dizzy and lightheaded. 1. Near syncope symptoms due to low blood pressure: Patient is being admitted in PCU. He has chronically low BP from diarrhea. Supine BP 97/63, 99/59, 106/53 and on sitting it was 93/63 and heart rate went up from 83 to 94/min. He does not meet criteria for hypotension with patient on IV fluid. 2. Chronic severe ulcerative colitis: Patient was discharged after almost 2 weeks of hospital stay. During that time patient was treated with IV Solu- Medrol and also Remicade was given after insurance approval. On high-dose prednisone. On mesalamine. Discussed with TNF inhibitor takes time about 6 weeks for action. 3. Chronic normocytic normochromic anemia from hematochezia: Hemoglobin is around 8 to 9 g back to baseline. 4. Hyponatremia from hypovolemia: Serum sodium 135. 5. Dyslipidemia ?Patient is on statin therapy, continued at home dose 6. Diabetes mellitus type 2: Metformin was held due to lactic acidosis. Accu- Chek before meals and at bedtime with Humalog sliding scale coverage and hypoglycemia protocol. 7. DVT prophylaxis Anticoagulation contraindicated at this time. 8. Severe malnutrition: Patient progressively decreasing body weight. Due to pancolitis, inadequate oral intake and malabsorption from ulcerative colitis. Severe malnutrition as evidenced by: 5% unintentional weight loss in less than 1 month and PO meeting less than 50% estimated nutrition Charges/Coding Visit Charges Inpatient E&M: 90378 Subs Hosp L2
[2024-07-28] MEDS: Lactated Ringers 1,000 ML 100 ML IV (16:53)
[2024-07-28 17:15] LABS: Bedside Glucose 357 mg/dL (74-106)
[2024-07-28] MEDS: Atorvastatin Calcium 10 MG Tablet PO (21:37)
[2024-07-28] MEDS: MESALAMINE 400 MG CAPSULE.DR PO (21:37)
[2024-07-28] MEDS: Baclofen 10 MG Tablet 5 MG PO (21:38)
[2024-07-28 21:57] LABS: Bedside Glucose 182 mg/dL (74-106)
[2024-07-29] MEDS: Lactated Ringers 1,000 ML 100 ML IV (01:54)
[2024-07-29 04:01] VITALS: BP 133/77; PULSE 99; RESP 18; TEMP 36.6; O2SAT 96
[2024-07-29 04:38] VITALS: BMI 21.8
[2024-07-29] MEDS: Dicyclomine 10 MG Capsule PO ×3 (05:44→16:10)
[2024-07-29] MEDS: Baclofen 10 MG Tablet 5 MG PO ×3 (05:45→22:26)
[2024-07-29 06:05] LABS: Bedside Glucose 123 mg/dL (74-106)
[2024-07-29 08:20] VITALS: O2SAT 97
--- NOTE | 2024-07-29 09:54 | CASEMGMT ---
[facility] ([facility]) does not have a bed for patient. SW met with patient. Introduced self and role at [facility]. SW let patient know that [facility] does not have availability so SW needs a second and third choice. Patient said he will review the list. SW let patient know SW will stop back by in a little bit. Rachel AMARAL
[2024-07-29 10:17] VITALS: BP 92/58; PULSE 94; RESP 16; TEMP 37.4; O2SAT 96
[2024-07-29] MEDS: MESALAMINE 400 MG CAPSULE.DR PO ×2 (10:24→22:27)
[2024-07-29] MEDS: Thiamine Hydrochloride 100 MG Tablet PO (10:25)
[2024-07-29] MEDS: Folic Acid 1 MG Tablet PO (10:25)
[2024-07-29] MEDS: predniSONE 20 MG Tablet 60 MG PO (10:25)
[2024-07-29] MEDS: Pantoprazole Sodium 40 MG Tablet PO (10:25)
[2024-07-29] MEDS: Menthol/Lanolin/Calamine/Znox 113 GM Tube 1 APPLIC TOPICAL ×4 (10:25→22:25)
[2024-07-29] MEDS: Insulin Lispro 100 UNIT/ML INSULN.PEN SC ×3 (12:05→22:30)
[2024-07-29 12:43] LABS: Bedside Glucose 158 mg/dL (74-106)
--- NOTE | 2024-07-29 12:46 | CASEMGMT ---
SW checked with patient and he has not looked at the SNF list. MAUREEN told patient SW will check back a little later today. Rachel Shultz MSW MUNIR
--- NOTE | 2024-07-29 15:13 | EX.PCM.CON.G ---
HPI Consult Data Date of Consult: 07/29/24 HPI Narrative Reason for Consultation: Ulcerative colitis HPI Narrative: NISHA MARTINS, is a 74 y/o M w/ Ulcerative colitis (on 5-ASA's until recently) , Diabetes mellitus type II w/ recent discharge 07/23/2024 following evaluation and treatment of acute on chronic anemia secondary to acute blood loss and severe ulcerative colitis flare. He was treated with a high-dose steroid therapy via IV and he was recently given it a loading dose of infliximab. He presented back to the [facility] ED on 07/27/24 secondary to persistent lightheadedness and dizziness intermittently with ongoing 3-4 bloody stools per day prompting ED return. Workup in the ED included T97.2, heart 92, BP 97/63, respiratory rate 18, 97% room air with similar BPs on 07/23/2024 of note and orthostatics not severe appearing in the ED, CBC with Laboratory analysis : WBC 3.8, human 10.6, platelet 192 with increased immature granulocytes and lymphopenia, unremarkable coags, BMP with sodium 135, BUN/creatinine 8/0.64, GFR 131, glucose 160, lactic acid pending, stool guaiac specimen positive however it was noted to be brown in the ED upon ED physician evaluation. He was deemed to be very weak and not safe to be discharged to home. Since being seen in the hospital he has been started on prednisone 60 mg p.o. I been asked to see him due to continuous lower GI bleeding. His hemoglobin is back down to 8 which previously was 9. His baseline runs between 10 and 11 over the last month. Before that it was ranging 13-14. [facility] Medical History Hypertension Irritable bowel Restless legs Diabetes GERD (gastroesophageal reflux disease) GI bleed Ulcerative colitis Alcohol abuse Arthritis Former smoker High cholesterol Diverticulitis Home Medications ?Medication ?Instructions ?Recorded ?Last Taken ?Type baclofen 10 mg tablet 10 mg PO TID pain 02/25/21 07/27/24 History albuterol sulfate 90 mcg/actuation 1 inh inhalation Q6H PRN shortness 02/26/21 Unknown Rx aerosol inhaler of breath or wheezing #8.5 grams pregabalin 150 mg capsule 150 mg PO BID . 06/19/24 07/27/24 History simvastatin 20 mg tablet 20 mg PO QHS . 06/19/24 07/26/24 History triamcinolone acetonide 0.5 % 1 applic topical BID RASH 06/19/24 Unknown History topical cream metformin 1,000 mg tablet 1,000 mg PO BID diabetes 07/12/24 07/27/24 History dicyclomine 10 mg capsule 10 mg PO TIDAC . #60 caps 07/23/24 07/27/24 Rx mesalamine 500 mg capsule,extended 500 mg PO BID pain/inflammation 30 07/23/24 07/27/24 Rx release (Pentasa) days #60 caps pantoprazole 40 mg tablet,delayed 40 mg PO DAILY GERD #30 tabs 07/23/24 07/27/24 Rx release prednisone 20 mg tablet 40 mg (2 x 20 mg) PO DAILY . 2 07/23/24 07/27/24 Rx weeks #28 tabs Allergy/AdvReac Type Severity Reaction Status Date / Time ibuprofen AdvReac Upset Verified 07/27/24 17:03 Stomach Family History Mother COPD (chronic obstructive pulmonary disease) Father Myocardial infarction Surgical History S/P colonoscopy S/P endoscopy Social History household members: spouse Smoking Status: Former smoker alcohol intake: current alcohol intake frequency: 3 or more drinks per day Alcohol type: beer details: Patient states that he drinks a 12 pack/day of 12 ounce beers substance use type: does not use ROS ROS Narrative Admission Review of Systems: CONSTITUTIONAL: No weight loss, fever, chills, + weakness or fatigue. HEENT: + Lightheadedness, dizziness especially with exertion at times. Eyes: No visual loss, blurred vision, double vision or yellow sclerae. Ears, Nose, Throat: No hearing loss, sneezing, congestion, runny nose or sore throat. SKIN: No rash or itching, lesions, wounds. CARDIOVASCULAR: + Lightheadedness, dizziness with exertion at times. No chest pain, chest pressure or chest discomfort, palpitations, edema, orthopnea, syncopal events. RESPIRATORY: No shortness of breath, cough or sputum, wheezing, hemoptysis. GASTROINTESTINAL: + Still mildly decreased appetite, ongoing bloody bowel movements/hematochezia, occasional loose stools. No nausea, vomiting, abdominal pain, melena. GENITOURINARY: No dysuria, frequency, urgency or retention. NEUROLOGICAL: + Persistent lightheadedness/dizziness worse with exertion. No headache, syncope, paralysis, ataxia, numbness or tingling in the extremities, focal weakness, change in bowel or bladder control, seizure. MUSCULOSKELETAL: + muscle, back pain, joint pain or stiffness. HEMATOLOGIC: + Chronic anemia, easy bleeding/bruising LYMPHATICS: No enlarged nodes. No history of splenectomy. PSYCHIATRIC: No history of depression or anxiety. ENDOCRINOLOGIC: No reports of sweating, cold or heat intolerance. No polyuria or polydipsia. ALLERGIES: No history of asthma, hives, eczema or rhinitis. Physical Exam Narrative Physical exam General: Alert, Oriented x3, Cooperative. BMI 21.5 kg/m? HEENT: Atraumatic, PERRLA, EOMI, Normocephalic Oral: Oral mucosa is dry. No Gingival or Mucosal Lesions/ Ulcerations Neck: Supple, No JVD, Negative Carotid Bruits Chest wall/Lungs: Air entry diminished in bilateral lung bases. No crepitation/rhonchi Cardiovascular: Regular rate, Regular Rhythm, Normal S1, Normal S2, No M/G/R Abdomen: Bowel Sounds Present, Soft, Non Tender, Non-Distended. Liquid BM. : No dysuria. No renal angle tenderness. No suprapubic tenderness. Extremities: No edema, Capillary Refill Less than 3 Seconds Skin: No rashes, No breakdown Musculoskeletal: No Tenderness to Palpation of Joints or Extremities, loss of subcutaneous fat and decreased muscle bulk. Neurological: Cranial nerves II-XII grossly intact, DTR 2+/4. No acute focal neurological deficit. Psych/Mental Status: Flat affect Medical Records Data Medical Nutrition Assessment Dietitian: Malnutrition Criteria Met Start: 07/28/24 11:05 Freq: Status: Active Protocol: Document 07/28/24 15:20 SB (Rec: 07/28/24 15:20 SB [id number]) Nutrition Malnutrition Evidence of Malnutrition Exists Yes Evidenced By Suboptimal Energy Intake ( Severe),Weight Loss (Severe) Clinical Problem Acute Disease or Injury Related Malnutrition Etiology severe protein-calorie malnutrition in the context of acute illness related to altered GI function and inadequate oral intake Signs/Symptoms as evidenced by 2% unintentional weight loss x 1 week and PO meeting <75% of estimated nutrition needs x 2- 3 weeks. Status Active Problem Recommendation Dietitian Recommendations/Changes Continue 1800 calorie controlled/consistent carbohydrate diet. Continue 120ml glucerna shake 4x daily with medpass. Will order vanilla fortified pudding with dinner tray. Will monitor weight trends. Reviewed and approved by Marita Wu RD,LD. Lab / Micro Data 07/28/24 06:00 07/28/24 06:00 Labs: Laboratory Results - last 24 hr 07/28/24 16:52: POC Glucose 357 H 07/28/24 21:33: POC Glucose 182 H 07/29/24 05:44: POC Glucose 123 H 07/29/24 12:04: POC Glucose 158 H Micro: Microbiology 07/28/24 05:32 Stool Enteric Bacteriology - Final 07/28/24 05:32 Stool C. difficile GDH Antigen & Toxins - Final 07/28/24 05:32 Stool Clostridioides difficile (PCR) - Final Assessment & Plan Assessment/Plan (1) Weakness: (2) Hypotension: (3) Colitis: (4) Rectal bleed: PLAN: Plan 74-year-old with severe reid ulcerative colitis complicated by C. 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 He is on steroid therapy. I will start vancomycin, IV Flagyl and colestipol. I will also check ESR, CRP, lactate. Steroids can be continued. If he tolerates these new oral medicines then I may start him on azathioprine. I will add Ensure protein +4 times a day. He will need TPN as he has severe hypoalbuminemia and start him IV albumin. In the context of severe ulcerative colitis, low albumin levels are considered a significant marker of disease severity and can indicate a poor prognosis, often requiring further medical intervention;?in such cases,?albumin may be administered intravenously to help raise serum albumin levels and potentially improve patient outcomes, although the primary focus should be on managing the underlying inflammation causing the low albumin levels.? Charges/Coding Visit Charges Inpatient E&M: 47696 Init Hosp L3
--- NOTE | 2024-07-29 15:59 | PN.HOSP_ITS ---
Reason for Visit Reason for Visit: Diagnoses Weakness (07/27/24) Objective Data Objective Data Vital Signs: Vital Signs Temp Pulse Resp BP Pulse Ox O2 Del Method 99.3 F H 94 16 92/58 L 96 Room Air 07/29/24 10:17 07/29/24 10:17 07/29/24 10:17 07/29/24 10:17 07/29/24 10:17 07/29/24 10:17 Oxygen Delivery Method Room Air Weight: 156 lb 8.451 oz Body Mass Index (BMI) 21.8 Intake & Output: Intake and Output for Last 24 Hours 07/27/24 07/28/24 07/29/24 23:59 23:59 23:59 Intake Total 1690 / 1840 1750 / 2110 2661.67 / 2661.67 Output Total 300 / 300 700 / 700 Balance 1690 / 1540 1450 / 1810 1961.67 / 1960.67 Medical Nutrition Assessment Dietitian: Malnutrition Criteria Met Start: 07/28/24 11:05 Freq: Status: Active Protocol: Document 07/28/24 15:20 SB (Rec: 07/28/24 15:20 SB [id number]) Nutrition Malnutrition Evidence of Malnutrition Exists Yes Evidenced By Suboptimal Energy Intake ( Severe),Weight Loss (Severe) Clinical Problem Acute Disease or Injury Related Malnutrition Etiology severe protein-calorie malnutrition in the context of acute illness related to altered GI function and inadequate oral intake Signs/Symptoms as evidenced by 2% unintentional weight loss x 1 week and PO meeting <75% of estimated nutrition needs x 2- 3 weeks. Status Active Problem Recommendation Dietitian Recommendations/Changes Continue 1800 calorie controlled/consistent carbohydrate diet. Continue 120ml glucerna shake 4x daily with medpass. Will order vanilla fortified pudding with dinner tray. Will monitor weight trends. Reviewed and approved by Marita Wu RD,LD. Lab / Micro Data 07/28/24 06:00 07/28/24 06:00 Labs: Laboratory Results - last 24 hr 07/28/24 16:52: POC Glucose 357 H 07/28/24 21:33: POC Glucose 182 H 07/29/24 05:44: POC Glucose 123 H 07/29/24 12:04: POC Glucose 158 H Micro: Microbiology 07/28/24 05:32 Stool Enteric Bacteriology - Final 07/28/24 05:32 Stool C. difficile GDH Antigen & Toxins - Final 07/28/24 05:32 Stool Clostridioides difficile (PCR) - Final 07/27/24 15:15 Stool Stool Occult Blood (ARNALDO) - Final Occult Blood Positive Physical Exam Narrative Seen and examined. Patient states no acute injury change with respect to diarrhea or rectal bleeding. Patient admitted with diarrhea and rectal bleeding that has been ongoing for 2 months. He was discharged on 07/23 and then admitted on 07/27. Physical exam General: Alert, Oriented x3, Cooperative. BMI 21.5 kg/m? HEENT: Atraumatic, PERRLA, EOMI, Normocephalic Oral: Oral mucosa is dry. No Gingival or Mucosal Lesions/ Ulcerations Neck: Supple, No JVD, Negative Carotid Bruits Chest wall/Lungs: Air entry diminished in bilateral lung bases. No crepitation/rhonchi Cardiovascular: Regular rate, Regular Rhythm, Normal S1, Normal S2, No M/G/R Abdomen: Bowel Sounds Present, Soft, Non Tender, Non-Distended. Liquid BM. : No dysuria. No renal angle tenderness. No suprapubic tenderness. Extremities: No edema, Capillary Refill Less than 3 Seconds Skin: No rashes, No breakdown Musculoskeletal: No Tenderness to Palpation of Joints or Extremities, loss of subcutaneous fat and decreased muscle bulk. Neurological: Cranial nerves II-XII grossly intact, DTR 2+/4. No acute focal neurological deficit. Psych/Mental Status: Flat affect Assessment & Plan Assessment/Plan (1) Weakness: PLAN: Plan Patient is a 74-year-old gentleman with pancolitis ulcerative colitis is a readmission after discharge for the same diagnosis of diarrhea with hematochezia. Patient was feeling dizzy and lightheaded. 1. Near syncope symptoms due to low blood pressure: Patient is being admitted in PCU. He has chronically low BP from diarrhea. Supine BP 97/63, 99/59, 106/53 and on sitting it was 93/63 and heart rate went up from 83 to 94/min. He does not meet criteria for hypotension with patient on IV fluid. 07/29: Blood pressure is still on lower side but denies any dizziness. 2. Chronic severe ulcerative colitis: Patient was discharged after almost 2 weeks of hospital stay. During that time patient was treated with IV Solu- Medrol and also Remicade was given after insurance approval. On high-dose prednisone. On mesalamine. Discussed with TNF inhibitor takes time about 6 weeks for action. 07/29: Seen by GI. 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 Continue oral vancomycin, IV Flagyl and colestipol. Based on the tolerance of new medication, recommended may consider azathioprine. 3. Chronic normocytic normochromic anemia from hematochezia: Hemoglobin is around 8 to 9 g back to baseline. 4. Hyponatremia from hypovolemia: Serum sodium 135. 5. Dyslipidemia ?Patient is on statin therapy, continued at home dose 6. Diabetes mellitus type 2: Metformin was held due to lactic acidosis. Accu- Chek before meals and at bedtime with Humalog sliding scale coverage and hypoglycemia protocol. 7. DVT prophylaxis Anticoagulation contraindicated at this time. 8. Severe malnutrition: Patient progressively decreasing body weight. Due to pancolitis, inadequate oral intake and malabsorption from ulcerative colitis. Ensure 4 times daily Severe malnutrition as evidenced by: 5% unintentional weight loss in less than 1 month and PO meeting less than 50% estimated nutrition Charges/Coding Visit Charges Inpatient E&M: 82978 Subs Hosp L2
--- NOTE | 2024-07-29 16:07 | CASEMGMT ---
MAUREEN spoke with patient and he asked SW to try [facility]. MAUREEN asked Kaity to please send a referral to [facility]. Rachel Shultz MSW MUNIR
[2024-07-29] MEDS: metroNIDAZOLE 500 MG/100 ML BAG 100 MG IV ×2 (16:09→22:12)
[2024-07-29 16:23] VITALS: BP 97/60; PULSE 77; RESP 18; TEMP 36.4; O2SAT 98
--- NOTE | 2024-07-29 16:28 | CASEMGMT ---
Discharge Planning Referral sent via [facility] to [facility]. Kaity Ramirez DC Planning Asst.
[2024-07-29 16:35] LABS: Erythrocyte Sedimentation Rate 25 mm/hr (0-20)
[2024-07-29 16:44] LABS: Lactic Acid 2.1 mmol/L (0.4-1.9)
[2024-07-29 17:18] LABS: CPK Total, Creatine Kinase 20 U/L (39-308); LDH 139 U/L (87-241)
[2024-07-29] MEDS: Lactated Ringers 1,000 ML 75 ML IV (17:34)
[2024-07-29] MEDS: Colestipol 1 GM TABLET PO (17:35)
[2024-07-29 18:00] LABS: Bedside Glucose 304 mg/dL (74-106)
[2024-07-29 20:06] LABS: Reflex Lactate? Y
[2024-07-29 21:18] LABS: Lactic Acid 4.2 mmol/L (0.4-1.9)
[2024-07-29 21:45] VITALS: BP 94/49; PULSE 77; RESP 18; TEMP 36.6; O2SAT 93
[2024-07-29] MEDS: 0.9% Saline Lock 10 ML Syringe IV (22:25)
[2024-07-29] MEDS: Glucerna Shake 120 ML LIQUID PO (22:26)
[2024-07-29] MEDS: Atorvastatin Calcium 10 MG Tablet PO (22:27)
[2024-07-29] MEDS: Ensure Plus High Protein 120 ML LIQUID PO (22:27)
[2024-07-29] MEDS: Pregabalin 75 MG Capsule 150 MG PO (22:35)
[2024-07-29] MEDS: Albumin Human 25% (50 mL) 12.5 GM/50 ML IV.SOLN IV (22:39)
[2024-07-29] MEDS: Vancomycin 125 MG/5 ML Susp PO.SYRINGE PO (23:53)
[2024-07-29 23:55] VITALS: BP 109/51; PULSE 85; RESP 16; TEMP 36.8; O2SAT 96
[2024-07-30 00:35] LABS: Bedside Glucose 202 mg/dL (74-106)
[2024-07-30 01:40] LABS: Lactic Acid 2.4 mmol/L (0.4-1.9)
[2024-07-30 03:26] VITALS: BMI 22.1
[2024-07-30 05:03] LABS: Reflex Lactate? Y
[2024-07-30 06:15] VITALS: BP 106/49; PULSE 76; RESP 18; TEMP 36.6; O2SAT 93
[2024-07-30] MEDS: 0.9% Saline Lock 10 ML Syringe IV ×4 (06:19→17:22)
[2024-07-30] MEDS: metroNIDAZOLE 500 MG/100 ML BAG 100 MG IV ×3 (06:19→21:35)
[2024-07-30] MEDS: Lactated Ringers 1,000 ML 75 ML IV ×2 (06:21→19:49)
[2024-07-30] MEDS: Baclofen 10 MG Tablet 5 MG PO ×3 (06:25→21:35)
[2024-07-30] MEDS: Dicyclomine 10 MG Capsule PO ×3 (06:25→16:42)
[2024-07-30] MEDS: Vancomycin 125 MG/5 ML Susp PO.SYRINGE PO ×3 (06:32→17:39)
[2024-07-30 07:10] LABS: Bedside Glucose 100 mg/dL (74-106)
[2024-07-30 07:41] VITALS: O2SAT 96
[2024-07-30 08:39] VITALS: BP 101/47; PULSE 77
[2024-07-30] MEDS: Albumin Human 25% (50 mL) 12.5 GM/50 ML IV.SOLN IV ×2 (08:59→22:55)
--- NOTE | 2024-07-30 09:00 | CASEMGMT ---
[facility] has accepted. [facility] has not been started. Kaity Ramirez DC Planning Asst.
[2024-07-30] MEDS: Glucerna Shake 120 ML LIQUID PO ×4 (09:07→21:39)
[2024-07-30] MEDS: Folic Acid 1 MG Tablet PO (09:09)
[2024-07-30] MEDS: predniSONE 20 MG Tablet 60 MG PO (09:10)
[2024-07-30] MEDS: azaTHIOprine 50 MG Tablet PO ×2 (09:10→18:25)
[2024-07-30] MEDS: Thiamine Hydrochloride 100 MG Tablet PO (09:11)
[2024-07-30] MEDS: Menthol/Lanolin/Calamine/Znox 113 GM Tube 1 APPLIC TOPICAL (09:12)
[2024-07-30] MEDS: Nystatin Powder 15gm Bottle 1 APPLIC TOPICAL ×2 (09:12→21:40)
[2024-07-30] MEDS: Pantoprazole Sodium 40 MG Tablet PO (09:14)
[2024-07-30] MEDS: Pregabalin 75 MG Capsule 150 MG PO ×2 (09:20→21:35)
[2024-07-30] MEDS: MESALAMINE 400 MG CAPSULE.DR PO ×2 (09:28→21:36)
[2024-07-30] MEDS: Colestipol 1 GM TABLET PO ×2 (09:28→21:35)
[2024-07-30] MEDS: Insulin Lispro 100 UNIT/ML INSULN.PEN SC ×3 (11:46→21:36)
--- NOTE | 2024-07-30 11:52 | CASEMGMT ---
Addendum entered by Kaity Ramirez 07/30/24 12:57: [facility] will not be able to accommodate TPN. Kaity Ramirez DC Planning Asst. Original Note: Note sent to [facility] to see if they can accommodate TPN. Awaiting response. Kaity Ramirez DC Planning Asst.
[2024-07-30 12:07] LABS: Bedside Glucose 191 mg/dL (74-106)
[2024-07-30 12:15] VITALS: BP 101/47; PULSE 89; RESP 18; TEMP 36.7; O2SAT 93
--- NOTE | 2024-07-30 15:43 | PN.HOSP_ITS ---
Reason for Visit Reason for Visit: Diagnoses Weakness (07/27/24) Objective Data Objective Data Vital Signs: Vital Signs Temp Pulse Resp BP Pulse Ox O2 Del Method 98.0 F 89 18 101/47 L 93 Room Air 07/30/24 12:15 07/30/24 12:15 07/30/24 12:15 07/30/24 12:15 07/30/24 12:15 07/30/24 12:15 Oxygen Delivery Method Room Air Weight: 159 lb 2.78 oz Body Mass Index (BMI) 22.1 Intake & Output: Intake and Output for Last 24 Hours 07/28/24 07/29/24 07/30/24 23:59 23:59 23:59 Intake Total 1750 / 2110 3591.67 / 3591.67 1687.5 / 1687.5 Output Total 300 / 300 1200 / 1200 500 / 500 Balance 1450 / 1810 2391.67 / 2391.67 1187.5 / 1187.5 Medical Nutrition Assessment Dietitian: Malnutrition Criteria Met Start: 07/28/24 11:05 Freq: Status: Active Protocol: Document 07/28/24 15:20 SB (Rec: 07/28/24 15:20 SB [id number]) Nutrition Malnutrition Evidence of Malnutrition Exists Yes Evidenced By Suboptimal Energy Intake ( Severe),Weight Loss (Severe) Clinical Problem Acute Disease or Injury Related Malnutrition Etiology severe protein-calorie malnutrition in the context of acute illness related to altered GI function and inadequate oral intake Signs/Symptoms as evidenced by 2% unintentional weight loss x 1 week and PO meeting <75% of estimated nutrition needs x 2- 3 weeks. Status Active Problem Recommendation Dietitian Recommendations/Changes Continue 1800 calorie controlled/consistent carbohydrate diet. Continue 120ml glucerna shake 4x daily with medpass. Will order vanilla fortified pudding with dinner tray. Will monitor weight trends. Reviewed and approved by Marita Wu RD,JULIET. Lab / Micro Data 07/28/24 06:00 07/28/24 06:00 Labs: Laboratory Results - last 24 hr 07/29/24 15:50: ESR 25 H, Lactic Acid 2.1 H*, Lactate Dehydrogenase 139, Total Creatine Kinase 20 L, C-React Prot Ext Range 78.60 H 07/29/24 17:37: POC Glucose 304 H 07/29/24 20:20: Lactic Acid 4.2 H* 07/29/24 22:29: POC Glucose 202 H 07/30/24 00:50: Lactic Acid 2.4 H* 07/30/24 05:35: Lactic Acid 2.0 07/30/24 06:24: POC Glucose 100 07/30/24 11:45: POC Glucose 191 H Micro: Microbiology 07/28/24 05:32 Stool Enteric Bacteriology - Final 07/28/24 05:32 Stool C. difficile GDH Antigen & Toxins - Final 07/28/24 05:32 Stool Clostridioides difficile (PCR) - Final 07/27/24 15:15 Stool Stool Occult Blood (ARNALDO) - Final Occult Blood Positive Physical Exam Narrative Seen and examined. Patient reported that he has improvement in diarrhea, bowel movement decreased to 2 today. Patient had PICC line in right arm for TPN. Patient admitted with diarrhea and rectal bleeding that has been ongoing for 2 months. He was discharged on 07/23 and then admitted on 07/27. Physical exam General: Alert, Oriented x3, Cooperative. BMI 21.5 kg/m?, severe malnutrition HEENT: Atraumatic, PERRLA, EOMI, Normocephalic Oral: Oral mucosa is dry. No Gingival or Mucosal Lesions/ Ulcerations Neck: Supple, No JVD, Negative Carotid Bruits Chest wall/Lungs: Air entry diminished in bilateral lung bases. No crepitation/rhonchi Cardiovascular: Regular rate, Regular Rhythm, Normal S1, Normal S2, No M/G/R Abdomen: Bowel Sounds Present, Soft, Non Tender, Non-Distended. Liquid BM. : No dysuria. No renal angle tenderness. No suprapubic tenderness. Extremities: No edema, Capillary Refill Less than 3 Seconds Skin: No rashes, No breakdown Musculoskeletal: No Tenderness to Palpation of Joints or Extremities, loss of subcutaneous fat and decreased muscle bulk. Neurological: Cranial nerves II-XII grossly intact, DTR 2+/4. No acute focal neurological deficit. Psych/Mental Status: Flat affect Assessment & Plan Assessment/Plan (1) Weakness: PLAN: Plan Patient is a 74-year-old gentleman with pancolitis ulcerative colitis is a readmission after discharge for the same diagnosis of diarrhea with hematochezia. Patient was feeling dizzy and lightheaded. 1. Near syncope symptoms due to low blood pressure: Patient is being admitted in PCU. He has chronically low BP from diarrhea. Supine BP 97/63, 99/59, 106/53 and on sitting it was 93/63 and heart rate went up from 83 to 94/min. He does not meet criteria for hypotension with patient on IV fluid. 07/29: Blood pressure is still on lower side but denies any dizziness. 07/30: Blood pressure on baseline. 2. Chronic severe ulcerative colitis: Patient was discharged after almost 2 weeks of hospital stay. During that time patient was treated with IV Solu- Medrol and also Remicade was given after insurance approval. On high-dose prednisone. On mesalamine. Discussed with TNF inhibitor takes time about 6 weeks for action. 07/29: Seen by GI. 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 Continue oral vancomycin, IV Flagyl and colestipol. Based on the tolerance of new medication, recommended may consider azathioprine. 07/30: Patient had right arm PICC line. School Business [employer] consult to calculate TPN calories and is started. Mild improvement in diarrhea. 3. Chronic normocytic normochromic anemia from hematochezia: Hemoglobin is around 8 to 9 g back to baseline. 4. Hyponatremia from hypovolemia: Serum sodium 135. 5. Dyslipidemia ?Patient is on statin therapy, continued at home dose 6. Diabetes mellitus type 2: Metformin was held due to lactic acidosis. Accu- Chek before meals and at bedtime with Humalog sliding scale coverage and hypoglycemia protocol. 7. DVT prophylaxis Anticoagulation contraindicated at this time. 8. Severe malnutrition: Patient progressively decreasing body weight. Due to pancolitis, inadequate oral intake and malabsorption from ulcerative colitis. Ensure 4 times daily Severe malnutrition as evidenced by: 5% unintentional weight loss in less than 1 month and PO meeting less than 50% estimated nutrition Charges/Coding Visit Charges Inpatient E&M: 57534 Subs Hosp L2
[2024-07-30 16:52] LABS: Bedside Glucose 275 mg/dL (74-106)
--- NOTE | 2024-07-30 17:00 | EX.PCM.PN.GI ---
Subjective Subjective Patient is feeling a little bit better today. It concerns me that his lactic acid continues to go up. He had 3 bowel movements today. There was a little bit of blood in nonformed stool. He has been afebrile. Objective Data Objective Data Vital Signs: Vital Signs Temp Pulse Resp BP Pulse Ox O2 Del Method 98.0 F 89 18 101/47 L 93 Room Air 07/30/24 12:15 07/30/24 12:15 07/30/24 12:15 07/30/24 12:15 07/30/24 12:15 07/30/24 12:15 Oxygen Delivery Method Room Air Weight: 159 lb 2.78 oz Body Mass Index (BMI) 22.1 Intake & Output: Intake and Output for Last 24 Hours 07/28/24 07/29/24 07/30/24 23:59 23:59 23:59 Intake Total 1750 / 2110 3591.67 / 3591.67 1787.5 / 1787.5 Output Total 300 / 300 1200 / 1200 500 / 500 Balance 1450 / 1810 2391.67 / 2391.67 1287.5 / 1287.5 Medical Nutrition Assessment Dietitian: Malnutrition Criteria Met Start: 07/28/24 11:05 Freq: Status: Active Protocol: Document 07/28/24 15:20 SB (Rec: 07/28/24 15:20 SB [id number]) Nutrition Malnutrition Evidence of Malnutrition Exists Yes Evidenced By Suboptimal Energy Intake ( Severe),Weight Loss (Severe) Clinical Problem Acute Disease or Injury Related Malnutrition Etiology severe protein-calorie malnutrition in the context of acute illness related to altered GI function and inadequate oral intake Signs/Symptoms as evidenced by 2% unintentional weight loss x 1 week and PO meeting <75% of estimated nutrition needs x 2- 3 weeks. Status Active Problem Recommendation Dietitian Recommendations/Changes Continue 1800 calorie controlled/consistent carbohydrate diet. Continue 120ml glucerna shake 4x daily with medpass. Will order vanilla fortified pudding with dinner tray. Will monitor weight trends. Reviewed and approved by Marita Wu RD,JULIET. Lab / Micro Data 07/28/24 06:00 07/28/24 06:00 Labs: Laboratory Results - last 24 hr 07/29/24 15:50: Lactate Dehydrogenase 139, Total Creatine Kinase 20 L 07/29/24 17:37: POC Glucose 304 H 07/29/24 20:20: Lactic Acid 4.2 H* 07/29/24 22:29: POC Glucose 202 H 07/30/24 00:50: Lactic Acid 2.4 H* 07/30/24 05:35: Lactic Acid 2.0 07/30/24 06:24: POC Glucose 100 07/30/24 11:45: POC Glucose 191 H 07/30/24 16:30: POC Glucose 275 H Micro: Microbiology 07/28/24 05:32 Stool Enteric Bacteriology - Final 07/28/24 05:32 Stool C. difficile GDH Antigen & Toxins - Final 07/28/24 05:32 Stool Clostridioides difficile (PCR) - Final 07/27/24 15:15 Stool Stool Occult Blood (ARNALDO) - Final Occult Blood Positive Physical Exam Narrative Physical exam General: Alert, Oriented x3, Cooperative. BMI 21.5 kg/m? HEENT: Atraumatic, PERRLA, EOMI, Normocephalic Oral: Oral mucosa is dry. No Gingival or Mucosal Lesions/ Ulcerations Neck: Supple, No JVD, Negative Carotid Bruits Chest wall/Lungs: Air entry diminished in bilateral lung bases. No crepitation/rhonchi Cardiovascular: Regular rate, Regular Rhythm, Normal S1, Normal S2, No M/G/R Abdomen: Bowel Sounds Present, Soft, Non Tender, Non-Distended. Liquid BM. : No dysuria. No renal angle tenderness. No suprapubic tenderness. Extremities: No edema, Capillary Refill Less than 3 Seconds Skin: No rashes, No breakdown Musculoskeletal: No Tenderness to Palpation of Joints or Extremities, loss of subcutaneous fat and decreased muscle bulk. Neurological: Cranial nerves II-XII grossly intact, DTR 2+/4. No acute focal neurological deficit. Psych/Mental Status: Flat affect Assessment & Plan Assessment/Plan (1) Weakness: (2) Hypotension: (3) Colitis: (4) Rectal bleed: PLAN: Plan 74-year-old with severe reid ulcerative colitis complicated by C. 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 He is on steroid therapy. I will start vancomycin, IV Flagyl and colestipol. I will also check ESR, CRP, lactate. Steroids can be continued. If he tolerates these new oral medicines then I may start him on azathioprine. I will add Ensure protein +4 times a day. He will need TPN as he has severe hypoalbuminemia and start him IV albumin. In the context of severe ulcerative colitis, low albumin levels are considered a significant marker of disease severity and can indicate a poor prognosis, often requiring further medical intervention;?in such cases,?albumin may be administered intravenously to help raise serum albumin levels and potentially improve patient outcomes, although the primary focus should be on managing the underlying inflammation causing the low albumin levels.? 07/30/2024-severe reid ulcerative colitis complicated by C. difficile colitis along with weight loss, protein calorie malnutrition, protein-losing enteropathy, hyperglobulinemia, bicytopenia. He also has a intermittent lactic acidosis likely secondary from increased inflammation in his colon. He has not suffered any side effects from the azathioprine and steroids at this time. I will titrate up his azathioprine. His goal would be between 1 mg a kilogram of body weight and 2.5 mg/kg body weight for his severe ulcerative colitis. Recommend stool for CMV. He will be getting TPN. I talk with his and gave her an update on how he is doing. Patient is still high risk for needing colectomy. Charges/Coding Visit Charges Inpatient E&M: 11037 Subs Hosp L3
[2024-07-30] MEDS: [UNRECOGNIZED DRUG - NUTRITION] 42 ML IV (17:21)
[2024-07-30] MEDS: Fat Emulsions 20% 250 ML IV (17:31)
[2024-07-30 18:15] VITALS: BP 105/45; PULSE 88; RESP 18; TEMP 36.8; O2SAT 98
[2024-07-30 19:50] VITALS: BP 103/40; PULSE 94; RESP 16; TEMP 37.2; O2SAT 95
[2024-07-30] MEDS: Atorvastatin Calcium 10 MG Tablet PO (21:36)
[2024-07-30 22:48] LABS: Bedside Glucose 311 mg/dL (74-106)
[2024-07-31] VITALS (9 sets, daily range): BP systolic 91–123; BP diastolic 40–61; PULSE 60–82; RESP 14–22; TEMP 35.9–37; O2SAT 93–99; BMI 22.6
[2024-07-31] MEDS: Vancomycin 125 MG/5 ML Susp PO.SYRINGE PO ×4 (00:06→18:27)
[2024-07-31] MEDS: Dicyclomine 10 MG Capsule PO ×3 (06:00→16:51)
[2024-07-31] MEDS: metroNIDAZOLE 500 MG/100 ML BAG 100 MG IV ×3 (06:01→22:04)
[2024-07-31] MEDS: Baclofen 10 MG Tablet 5 MG PO ×3 (06:01→22:25)
[2024-07-31] MEDS: Insulin Lispro 100 UNIT/ML INSULN.PEN SC ×4 (06:06→22:20)
[2024-07-31 06:13] LABS: Absolute Lymphocyte Count 0.39 X10^3/uL (0.83-4.51); Absolute Neutrophil Count 1.2 X10^3/uL (2.0-7.7); Basophil# 0.01 X10^3/uL; Basophil% 0.6 % (0-1); Hemoglobin 6.8 g/dL (13.0-16.5); Lymphocyte # 0.39 X10^3/ul (0.83-4.51); Lymphocyte % 23.4 % (19-41); Mean Corp Hgb Conc 30.9 g/dL (32-36); Mean Corpuscular Hgb 27.5 pg (27.0-32.0); Mean Corpuscular Volume 89.1 fL (80-94); Mean Platelet Vol. 8.6 fl (6.2-12.0); Monocyte# 0.07 X10^3/uL; Monocyte% 4.2 % (0-10); NRBC Flagged by Analyzer 0 % (0-5); Neutrophil # 1.19 X10^3/uL (2.7-7.7); Neutrophil % 71.2 % (47-70); POSITIVE DIFFERENTIAL YES; POSITIVE MORPHOLOGY YES; Platelet Count 116 K/mm3 (150-450); RBC Distribution Width CV 16.6 % (11.6-14.6); RBC Distribution Width SD 53.7 fl (35.1-43.9); Red Blood Count 2.47 M/mm3 (4.6-6.2); White Blood Count 1.7 K/mm3 (4.4-11.0)
[2024-07-31 06:24] LABS: Differential Indicated SCAN CRITERIA MET
[2024-07-31 06:34] LABS: Bedside Glucose 248 mg/dL (74-106)
[2024-07-31 06:48] LABS: Anion Gap 4 (5-15); BUN 8 mg/dL (7-18); BUN/Creat Ratio 14.4 RATIO (10-20); Calcium,Total 7.8 mg/dL (8.5-10.1); Chloride 107 mmol/L (98-107); Creatinine, Serum 0.56 mg/dL (0.70-1.30); EST Glomerular Filtration Rate 153 mL/min (>60); Est Glom Filt Rate - Afr Amer 185 mL/min (>60); Estimated Creatinine Clearance 85.38 ml/min; Glucose 266 mg/dL (74-106); Potassium 3.8 mmol/L (3.5-5.1); Sodium Level 138 mmol/L (136-145)
[2024-07-31 07:56] LABS: Platelet Estimate SLT DEC (ADEQ)
[2024-07-31] MEDS: Albumin Human 25% (50 mL) 12.5 GM/50 ML IV.SOLN IV ×2 (09:38→22:04)
[2024-07-31] MEDS: Thiamine Hydrochloride 100 MG Tablet PO (09:39)
[2024-07-31] MEDS: azaTHIOprine 50 MG Tablet 100 MG PO (09:39)
[2024-07-31] MEDS: predniSONE 20 MG Tablet 60 MG PO (09:39)
[2024-07-31] MEDS: Colestipol 1 GM TABLET PO ×2 (09:40→22:25)
[2024-07-31] MEDS: Pregabalin 75 MG Capsule 150 MG PO ×2 (09:40→22:05)
[2024-07-31] MEDS: Nystatin Powder 15gm Bottle 1 APPLIC TOPICAL ×2 (09:40→22:05)
[2024-07-31] MEDS: Pantoprazole Sodium 40 MG Tablet PO (09:40)
[2024-07-31] MEDS: MESALAMINE 400 MG CAPSULE.DR PO ×2 (09:40→22:25)
[2024-07-31] MEDS: Folic Acid 1 MG Tablet PO (09:40)
[2024-07-31 11:55] LABS: Bedside Glucose 202 mg/dL (74-106)
--- NOTE | 2024-07-31 12:20 | CASEMGMT ---
Addendum entered by Kaity Ramirez 07/31/24 15:56: All snfs declined d/t need for continuous TPN. Kaity Ramirez DC Planning Asst. Original Note: Pts updated on declining referral. She was agreeable to referrals being sent out to all snfs in network near [place]. Referrals sent to [facility], [facility], [facility], [facility], [facility], [facility], [facility], [facility], and [facility]. Kaity Ramirez DC Planning Asst.
[2024-07-31 12:57] LABS: ALB/GLOB Ratio 0.6 RATIO (0.9-2.4); AST(SGOT) 5 U/L (15-37); Alanine Aminotransfer ALT/SGPT 12 U/L (16-61); Albumin, Serum 1.9 g/dL (3.2-5.0); Alkaline Phosphatase 53 U/L (45-117); Anion Gap 7 (5-15); BUN 7 mg/dL (7-18); BUN/Creat Ratio 11.7 RATIO (10-20); Chloride 104 mmol/L (98-107); EST Glomerular Filtration Rate 141 mL/min (>60); Est Glom Filt Rate - Afr Amer 171 mL/min (>60); Estimated Creatinine Clearance 85.38 ml/min; Globulin 3.2 g/dL (2.2-4.2); Glucose 227 mg/dL (74-106); Magnesium 2.2 mg/dL (1.6-2.6); Phosphorus 2.2 mg/dL (2.5-4.9); Potassium 3.2 mmol/L (3.5-5.1); Protein, Total 5.1 g/dL (6.4-8.2); Sodium Level 137 mmol/L (136-145)
[2024-07-31 13:03] LABS: Lactic Acid 3.6 mmol/L (0.4-1.9)
[2024-07-31] MEDS: Glucerna Shake 120 ML LIQUID PO (13:39)
[2024-07-31 13:49] LABS: Pathologist Review Reviewed
--- NOTE | 2024-07-31 14:30 | CT_ITS ---
STUDY: CT ABDOMEN AND PELVIS WITH CONTRAST REASON FOR EXAM: Male, 74 years old. severe ulcerative colitis RADIATION DOSAGE (If Supplied By Facility): CTDIvol = ( 12.79 ) mGy, DLP = ( 874.54 ) mGycm TECHNIQUE: Transaxial images were obtained from the dome of the diaphragm to the symphysis pubis without oral contrast. IV 100mL Isovue-300 was administered. Sagittal and coronal images were reconstructed. Individualized dose optimization techniques were used for this CT. COMPARISON: None. FINDINGS: Minimal bilateral pleural effusions with bibasilar atelectasis more prominent on the right side. Pacemaker wires are seen. Coronary artery calcification. There is decreased attenuation of the liver consistent with steatosis. Tiny cyst in the right lobe of the liver. The gallbladder is contracted. There is evidence of gallbladder wall thickening. There are multiple benign calcified granulomata of the spleen. Normal pancreas. There is a small, circumscribed, smooth, low attenuation right adrenal mass, consistent with an adrenal adenoma. This measures 1.3 cm. Normal left adrenal gland. Normal right kidney. Normal left kidney. Small ureteroceles are seen in the distal portion of the ureters. Normal visualized stomach. Normal small intestine. Neural thickening and inflammatory changes seen in the rectosigmoid colon in keeping with colitis. The appendix is visualized and appears normal. There is scattered atherosclerotic calcification of the abdominal aorta and its major visceral branches. There is evidence of infrarenal abdominal aortic aneurysm with a transverse dimension of 4.7 cm. Mural thrombus is seen. Normal inferior vena cava. Normal retroperitoneum. Distended urinary bladder. Central prostatic calcification. Normal abdominal wall. There are diffuse degenerative changes of the visualized lumbar spine. CT/Abdomen/Pelvis W IV Cont ONLY IMPRESSION: Colitis involving the rectosigmoid colon. Infrarenal abdominal aortic aneurysm. Fatty infiltration of the liver. Subcentimeters cyst in the left lobe of the liver. Small right adrenal adenoma. Electronically Signed: Will Sanchez MD at 15:42 EST ,
--- NOTE | 2024-07-31 14:33 | CON.PCM.SX_ITS ---
Assessment & Plan Assessment/Plan (1) Rectal bleed: (2) Colitis: PLAN: The patient is a 74-year-old male with a history of ulcerative colitis and has recurrent C. difficile colitis who continues to pass liquid and bloody stools. Hemodynamically he has been stable however his lactate seems to be persistently elevated. Surgical consult was obtained to evaluate for possible surgical intervention. At this point, he seems clinically stable and does not require urgent or emergent surgical intervention, however I did discuss the possibility that if he worsens clinically or fails to improve, then surgical intervention may be warranted. Patient has certainly not an ideal surgical candidate for many reasons. If total abdominal colectomy is warranted, I did discuss the possibility that he may benefit from transfer to a tertiary center/colorectal surgery. We did discuss that surgery would most certainly require placement of an ostomy. At the present moment, I would recommend continued current medical management which seems quite comprehensive. Given the fact that it has been about [address] last [address] scan, I do feel that repeating a CT scan of the abdomen pelvis might be helpful. We will continue to follow along and advise accordingly. HPI Consult Data Date of Consult: 07/31/24 HPI Narrative HPI Narrative: NISHA MARTINS, is a 74 M who has multiple medical problems including hypertension, Hyperlipidemia tobacco use, GERD, GI bleed, history of alcohol abuse, ulcerative colitis, diabetes. Patient was just recently discharged about a week ago following a hospitalization for anemia. Anemia was apparently related to GI blood loss secondary to severe diarrhea due to C. difficile as well as underlying ulcerative colitis. Patient was discharged to home on July 23 and presented back to the emergency room with lightheadedness and dizziness. He was also having multiple bloody stools. When he was seen in the emergency room he underwent a workup. He was subsidy admitted and treated medically. He was found to have recurrent C. difficile. He was on Remicade for his C. difficile as well as some steroids. He continues to pass about a half dozen bloody bowel movements consisting of mostly water daily. His lactate seems to be increasing and so a surgical consult was obtained. Last CT scan showed findings of colitis however last CT scan was on July 14. Patient seems to be hemodynamically stable. He denies any worsening of his symptoms. [facility] Medical History Hypertension Irritable bowel Restless legs Diabetes GERD (gastroesophageal reflux disease) GI bleed Ulcerative colitis Alcohol abuse Arthritis Former smoker High cholesterol Diverticulitis Home Medications ?Medication ?Instructions ?Recorded ?Last Taken ?Type baclofen 10 mg tablet 10 mg PO TID pain 02/25/21 07/27/24 History albuterol sulfate 90 mcg/actuation 1 inh inhalation Q6H PRN shortness 02/26/21 Unknown Rx aerosol inhaler of breath or wheezing #8.5 grams pregabalin 150 mg capsule 150 mg PO BID . 06/19/24 07/27/24 History simvastatin 20 mg tablet 20 mg PO QHS . 06/19/24 07/26/24 History triamcinolone acetonide 0.5 % 1 applic topical BID RASH 06/19/24 Unknown History topical cream metformin 1,000 mg tablet 1,000 mg PO BID diabetes 07/12/24 07/27/24 History dicyclomine 10 mg capsule 10 mg PO TIDAC . #60 caps 07/23/24 07/27/24 Rx mesalamine 500 mg capsule,extended 500 mg PO BID pain/inflammation 30 07/23/24 07/27/24 Rx release (Pentasa) days #60 caps pantoprazole 40 mg tablet,delayed 40 mg PO DAILY GERD #30 tabs 07/23/24 07/27/24 Rx release prednisone 20 mg tablet 40 mg (2 x 20 mg) PO DAILY . 2 07/23/24 07/27/24 Rx weeks #28 tabs Allergy/AdvReac Type Severity Reaction Status Date / Time ibuprofen AdvReac Upset Verified 07/27/24 17:03 Stomach Family History Mother COPD (chronic obstructive pulmonary disease) Father Myocardial infarction Surgical History S/P colonoscopy S/P endoscopy Social History household members: spouse Smoking Status: Former smoker alcohol intake: current alcohol intake frequency: 3 or more drinks per day Alcohol type: beer details: Patient states that he drinks a 12 pack/day of 12 ounce beers substance use type: does not use Physical Exam Narrative Patient is awake and alert. He is in no acute distress. Head is normocephalic and atraumatic. Abdomen is soft and slightly distended. Minimal diffuse tenderness to palpation. No rebound or guarding or other peritoneal signs Medical Records Data Medical Nutrition Assessment Dietitian: Malnutrition Criteria Met Start: 07/28/24 11:05 Freq: Status: Active Protocol: Document 07/28/24 15:20 SB (Rec: 07/28/24 15:20 SB [id number]) Nutrition Malnutrition Evidence of Malnutrition Exists Yes Evidenced By Suboptimal Energy Intake ( Severe),Weight Loss (Severe) Clinical Problem Acute Disease or Injury Related Malnutrition Etiology severe protein-calorie malnutrition in the context of acute illness related to altered GI function and inadequate oral intake Signs/Symptoms as evidenced by 2% unintentional weight loss x 1 week and PO meeting <75% of estimated nutrition needs x 2- 3 weeks. Status Active Problem Recommendation Dietitian Recommendations/Changes Continue 1800 calorie controlled/consistent carbohydrate diet. Continue 120ml glucerna shake 4x daily with medpass. Will order vanilla fortified pudding with dinner tray. Will monitor weight trends. Reviewed and approved by Marita Wu, LILO,LD. Lab / Micro Data 07/31/24 06:00 07/31/24 12:10 Labs: Laboratory Results - last 24 hr 07/30/24 16:30: POC Glucose 275 H 07/30/24 21:34: POC Glucose 311 H 07/31/24 06:00: WBC 1.7 L, RBC 2.47 L, Hgb 6.8 L, Hct 22.0 L, MCV 89.1, MCH 27.5, MCHC 30.9 L, RDW Std Deviation 53.7 H, RDW Coeff of Janice 16.6 H, Plt Count 116 L, MPV 8.6, Immature Gran % (Auto) 0.600, Neut % (Auto) 71.2 H, Lymph % (Auto) 23.4, [place] % (Auto) 4.2, Eos % (Auto) 0.0, Baso % (Auto) 0.6, Absolute Neuts (auto) 1.2 L, Absolute Lymphs (auto) 0.39 L, Nucleated RBC % 0, Diff Path Review Reviewed, Platelet Estimate SLT DEC, Sodium 138, Potassium 3.8, Chloride 107, Carbon Dioxide 27.0, Anion Gap 4 L, BUN 8, Creatinine 0.56 L, Estim Creat Clear Calc 85.38, Est GFR (MDRD) Af Amer 185, Est GFR (MDRD) Non-Af 153, BUN/Creatinine Ratio 14.4, Glucose 266 H, Calcium 7.8 L 07/31/24 06:05: POC Glucose 248 H 07/31/24 10:43: Blood Type A POSITIVE, Antibody Screen NEGATIVE, Crossmatch See Detail 07/31/24 11:32: POC Glucose 202 H 07/31/24 12:10: Sodium 137, Potassium 3.2 L, Chloride 104, Carbon Dioxide 26.0, Anion Gap 7, BUN 7, Creatinine 0.60 L, Estim Creat Clear Calc 85.38, Est GFR (MDRD) Af Amer 171, Est GFR (MDRD) Non-Af 141, BUN/Creatinine Ratio 11.7, G lucose 227 H, Lactic Acid 3.6 H*, Calcium 8.0 L, Phosphorus 2.2 L, Magnesium 2.2, Total Bilirubin 0.40, AST 5 L, ALT 12 L, Alkaline Phosphatase 53, C-React Prot Ext Range 76.50 H, Total Protein 5.1 L, Albumin 1.9 L, Globulin 3.2, A lbumin/Globulin Ratio 0.6 L Charges/Coding Visit Charges Inpatient E&M: 98848 Init Hosp L3
[2024-07-31 15:07] LABS: Erythrocyte Sedimentation Rate 20 mm/hr (0-20)
[2024-07-31 15:09] LABS: Absolute Lymphocyte Count 0.53 X10^3/uL (0.83-4.51); Basophil# 0.01 X10^3/uL; Basophil% 0.6 % (0-1); Eosinophil# 0.02 X10^3/uL; Eosinophils% 1.2 % (0-5); Hematocrit 23.3 % (40-54); Hemoglobin 7.2 g/dL (13.0-16.5); Lymphocyte # 0.53 X10^3/ul (0.83-4.51); Lymphocyte % 32.5 % (19-41); Mean Corp Hgb Conc 30.9 g/dL (32-36); Mean Corpuscular Hgb 28.2 pg (27.0-32.0); Mean Corpuscular Volume 91.4 fL (80-94); Mean Platelet Vol. 9.2 fl (6.2-12.0); Monocyte# 0.11 X10^3/uL; Monocyte% 6.7 % (0-10); NRBC Flagged by Analyzer 0 % (0-5); Neutrophil # 0.96 X10^3/uL (2.7-7.7); POSITIVE DIFFERENTIAL YES; POSITIVE MORPHOLOGY YES; Platelet Count 109 K/mm3 (150-450); RBC Distribution Width CV 16.7 % (11.6-14.6); Red Blood Count 2.55 M/mm3 (4.6-6.2); White Blood Count 1.6 K/mm3 (4.4-11.0)
--- NOTE | 2024-07-31 15:10 | EX.PCM.PN.GI ---
Subjective Subjective Patient states that he still going to the bathroom multiple times a day. There is no blood in the stool that he can see. His current get the blood transfusion his hemoglobin dropped down to 6.8. She denies any tenesmus. His appetite is still poor. He has been maintained on TPN. Objective Data Objective Data Vital Signs: Vital Signs Temp Pulse Resp BP Pulse Ox O2 Del Method 97.9 F 60 18 97/49 L 99 Room Air 07/31/24 13:20 07/31/24 13:20 07/31/24 12:00 07/31/24 13:20 07/31/24 13:20 07/31/24 13:20 Oxygen Delivery Method Room Air Weight: 161 lb 13.109 oz Body Mass Index (BMI) 22.6 Intake & Output: Intake and Output for Last 24 Hours 07/29/24 07/30/24 07/31/24 23:59 23:59 23:59 Intake Total 3591.67 / 3591.67 3435.0 / 3435.0 1712.5 / 1712.5 Output Total 1200 / 1200 900 / 1800 1800 / 1800 Balance 2391.67 / 2391.67 2535.0 / 1635.0 -87.5 / -87.5 Medical Nutrition Assessment Dietitian: Malnutrition Criteria Met Start: 07/28/24 11:05 Freq: Status: Active Protocol: Document 07/28/24 15:20 SB (Rec: 07/28/24 15:20 SB [id number]) Nutrition Malnutrition Evidence of Malnutrition Exists Yes Evidenced By Suboptimal Energy Intake ( Severe),Weight Loss (Severe) Clinical Problem Acute Disease or Injury Related Malnutrition Etiology severe protein-calorie malnutrition in the context of acute illness related to altered GI function and inadequate oral intake Signs/Symptoms as evidenced by 2% unintentional weight loss x 1 week and PO meeting <75% of estimated nutrition needs x 2- 3 weeks. Status Active Problem Recommendation Dietitian Recommendations/Changes Continue 1800 calorie controlled/consistent carbohydrate diet. Continue 120ml glucerna shake 4x daily with medpass. Will order vanilla fortified pudding with dinner tray. Will monitor weight trends. Reviewed and approved by Marita Wu RD,LD. Lab / Micro Data 07/31/24 06:00 07/31/24 12:10 Labs: Laboratory Results - last 24 hr 07/30/24 16:30: POC Glucose 275 H 07/30/24 21:34: POC Glucose 311 H 07/31/24 06:00: WBC 1.7 L, RBC 2.47 L, Hgb 6.8 L, Hct 22.0 L, MCV 89.1, MCH 27.5, MCHC 30.9 L, RDW Std Deviation 53.7 H, RDW Coeff of Janice 16.6 H, Plt Count 116 L, MPV 8.6, Immature Gran % (Auto) 0.600, Neut % (Auto) 71.2 H, Lymph % (Auto) 23.4, [place] % (Auto) 4.2, Eos % (Auto) 0.0, Baso % (Auto) 0.6, Absolute Neuts (auto) 1.2 L, Absolute Lymphs (auto) 0.39 L, Nucleated RBC % 0, Diff Path Review Reviewed, Platelet Estimate SLT DEC, Sodium 138, Potassium 3.8, Chloride 107, Carbon Dioxide 27.0, Anion Gap 4 L, BUN 8, Creatinine 0.56 L, Estim Creat Clear Calc 85.38, Est GFR (MDRD) Af Amer 185, Est GFR (MDRD) Non-Af 153, BUN/Creatinine Ratio 14.4, Glucose 266 H, Calcium 7.8 L 07/31/24 06:05: POC Glucose 248 H 07/31/24 10:43: Blood Type A POSITIVE, Antibody Screen NEGATIVE, Crossmatch See Detail 07/31/24 11:32: POC Glucose 202 H 07/31/24 12:10: ESR 20, Sodium 137, Potassium 3.2 L, Chloride 104, Carbon Dioxide 26.0, Anion Gap 7, BUN 7, Creatinine 0.60 L, Estim Creat Clear Calc 85.38, Est GFR (MDRD) Af Amer 171, Est GFR (MDRD) Non-Af 141, BUN/Creatinine Ratio 11.7, Glucose 227 H, Lactic Acid 3.6 H*, Calcium 8.0 L, Phosphorus 2.2 L, Magnesium 2.2, Total Bilirubin 0.40, AST 5 L, ALT 12 L, Alkaline Phosphatase 53, C-React Prot Ext Range 76.50 H, Total Protein 5.1 L, Albumin 1.9 L, Globulin 3.2, Albumin/Globulin Ratio 0.6 L Micro: Microbiology 07/28/24 05:32 Stool Enteric Bacteriology - Final 07/28/24 05:32 Stool C. difficile GDH Antigen & Toxins - Final 07/28/24 05:32 Stool Clostridioides difficile (PCR) - Final 07/27/24 15:15 Stool Stool Occult Blood (ARNALDO) - Final Occult Blood Positive Physical Exam Narrative Patient is awake and alert. He is in no acute distress. Head is normocephalic and atraumatic. Abdomen is soft and slightly distended. Minimal diffuse tenderness to palpation. No rebound or guarding or other peritoneal signs Assessment & Plan Assessment/Plan (1) Weakness: (2) Hypotension: (3) Colitis: (4) Rectal bleed: PLAN: Plan 74-year-old with severe reid ulcerative colitis complicated by C. 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 He is on steroid therapy. I will start vancomycin, IV Flagyl and colestipol. I will also check ESR, CRP, lactate. Steroids can be continued. If he tolerates these new oral medicines then I may start him on azathioprine. I will add Ensure protein +4 times a day. He will need TPN as he has severe hypoalbuminemia and start him IV albumin. In the context of severe ulcerative colitis, low albumin levels are considered a significant marker of disease severity and can indicate a poor prognosis, often requiring further medical intervention;?in such cases,?albumin may be administered intravenously to help raise serum albumin levels and potentially improve patient outcomes, although the primary focus should be on managing the underlying inflammation causing the low albumin levels.? 07/30/2024-severe reid ulcerative colitis complicated by C. difficile colitis along with weight loss, protein calorie malnutrition, protein-losing enteropathy, hyperglobulinemia, bicytopenia. He also has a intermittent lactic acidosis likely secondary from increased inflammation in his colon. He has not suffered any side effects from the azathioprine and steroids at this time. I will titrate up his azathioprine. His goal would be between 1 mg a kilogram of body weight and 2.5 mg/kg body weight for his severe ulcerative colitis. Recommend stool for CMV. He will be getting TPN. I talk with his and gave her an update on how he is doing. Patient is still high risk for needing colectomy. 07/31/2024-his abdominal pain is definitely better. He still being maintained on TPN. We checked magnesium, phosphorus, CBC, CMP. Blood work is pending except for the CBC. He is showing signs of pancytopenia that is likely a side effect of his azathioprine. He was increased from 50 mg to 100 mg a day. We will DC the Imuran. This also can be a side effect of prednisone. I think we need to keep mild immunosuppression with prednisone. If it is counts continue to go down then he may need repeat blood transfusions and possibly Neupogen. We consulted general surgery. At this time he appears to be stable so he does not need surgical intervention. I appreciate the consultation. It was recommended to repeat his CT scan abdomen pelvis and we will order that now. It does concern me that his CRP is back up to 75 when it was down to 5. Guarded prognosis at this time.
[2024-07-31 15:30] LABS: Differential Indicated SCAN CRITERIA MET
[2024-07-31 15:33] LABS: Differential Comment SCANNED
[2024-07-31 15:48] LABS: Fibrinogen 432 mg/dl (203-444)
[2024-07-31 16:04] LABS: International Normalized Ratio 1.2; Prothrombin Time (Protime)PT. 15.7 SECONDS (11.7-14.9)
--- NOTE | 2024-07-31 16:09 | PCM.PN.HOSP ---
Reason for Visit Reason for Visit: Diagnoses Hypotension, unspecified (07/27/24) Noninfective gastroenteritis and colitis, unspecified (07/27/24) Hemorrhage of anus and rectum (07/27/24) Weakness (07/27/24) Objective Data Objective Data Vital Signs: Vital Signs Temp Pulse Resp BP Pulse Ox O2 Del Method 97.0 F L 82 18 103/40 L 93 Room Air 07/31/24 15:43 07/31/24 15:43 07/31/24 12:00 07/31/24 15:43 07/31/24 15:43 07/31/24 15:43 Oxygen Delivery Method Room Air Weight: 161 lb 13.109 oz Body Mass Index (BMI) 22.6 Intake & Output: Intake and Output for Last 24 Hours 07/29/24 07/30/24 07/31/24 23:59 23:59 23:59 Intake Total 3591.67 / 3591.67 3435.0 / 3435.0 2312.5 / 2312.5 Output Total 1200 / 1200 900 / 1800 1800 / 1800 Balance 2391.67 / 2391.67 2535.0 / 1635.0 512.5 / 512.5 Medical Nutrition Assessment Dietitian: Malnutrition Criteria Met Start: 07/28/24 11:05 Freq: Status: Active Protocol: Document 07/28/24 15:20 SB (Rec: 07/28/24 15:20 SB [id number]) Nutrition Malnutrition Evidence of Malnutrition Exists Yes Evidenced By Suboptimal Energy Intake ( Severe),Weight Loss (Severe) Clinical Problem Acute Disease or Injury Related Malnutrition Etiology severe protein-calorie malnutrition in the context of acute illness related to altered GI function and inadequate oral intake Signs/Symptoms as evidenced by 2% unintentional weight loss x 1 week and PO meeting <75% of estimated nutrition needs x 2- 3 weeks. Status Active Problem Recommendation Dietitian Recommendations/Changes Continue 1800 calorie controlled/consistent carbohydrate diet. Continue 120ml glucerna shake 4x daily with medpass. Will order vanilla fortified pudding with dinner tray. Will monitor weight trends. Reviewed and approved by Marita Wu RD,LD. Lab / Micro Data 07/31/24 10:43 07/31/24 12:10 Labs: Laboratory Results - last 24 hr 07/30/24 16:30: POC Glucose 275 H 07/30/24 21:34: POC Glucose 311 H 07/31/24 06:00: WBC 1.7 L, RBC 2.47 L, Hgb 6.8 L, Hct 22.0 L, MCV 89.1, MCH 27.5, MCHC 30.9 L, RDW Std Deviation 53.7 H, RDW Coeff of Janice 16.6 H, Plt Count 116 L, MPV 8.6, Immature Gran % (Auto) 0.600, Neut % (Auto) 71.2 H, Lymph % (Auto) 23.4, [place] % (Auto) 4.2, Eos % (Auto) 0.0, Baso % (Auto) 0.6, Absolute Neuts (auto) 1.2 L, Absolute Lymphs (auto) 0.39 L, Nucleated RBC % 0, Diff Path Review Reviewed, Platelet Estimate SLT DEC, Sodium 138, Potassium 3.8, Chloride 107, Carbon Dioxide 27.0, Anion Gap 4 L, BUN 8, Creatinine 0.56 L, Estim Creat Clear Calc 85.38, Est GFR (MDRD) Af Amer 185, Est GFR (MDRD) Non-Af 153, BUN/Creatinine Ratio 14.4, Glucose 266 H, Calcium 7.8 L 07/31/24 06:05: POC Glucose 248 H 07/31/24 10:43: WBC 1.6 L, RBC 2.55 L, Hgb 7.2 L, Hct 23.3 L, MCV 91.4, MCH 28.2, MCHC 30.9 L, RDW Std Deviation 56.0 H, RDW Coeff of Janice 16.7 H, Plt Count 109 L, MPV 9.2, Immature Gran % (Auto) 0.000, Neut % (Auto) 59.0, Lymph % (Auto) 32.5, [place] % (Auto) 6.7, Eos % (Auto) 1.2, Baso % (Auto) 0.6, Absolute Neuts (auto) 1.0 L, Absolute Lymphs (auto) 0.53 L, Nucleated RBC % 0, Differential Comment SCANNED, Diff Path Review November, ESR 20, Blood Type A POSITIVE, Antibody Screen NEGATIVE, Crossmatch See Detail 07/31/24 11:32: POC Glucose 202 H 07/31/24 12:10: Sodium 137, Potassium 3.2 L, Chloride 104, Carbon Dioxide 26.0, Anion Gap 7, BUN 7, Creatinine 0.60 L, Estim Creat Clear Calc 85.38, Est GFR (MDRD) Af Amer 171, Est GFR (MDRD) Non-Af 141, BUN/Creatinine Ratio 11.7, Glucose 227 H, Lactic Acid 3.6 H*, Calcium 8.0 L, Phosphorus 2.2 L, Magnesium 2.2, Total Bilirubin 0.40, AST 5 L, ALT 12 L, Alkaline Phosphatase 53, C-React Prot Ext Range 76.50 H, Total Protein 5.1 L, Albumin 1.9 L, Globulin 3.2, Albumin/Globulin Ratio 0.6 L 07/31/24 14:56: PT 15.7 H, INR 1.2, APTT 30.0, Fibrinogen 432 Micro: Microbiology 07/28/24 05:32 Stool Enteric Bacteriology - Final 07/28/24 05:32 Stool C. difficile GDH Antigen & Toxins - Final 07/28/24 05:32 Stool Clostridioides difficile (PCR) - Final 07/27/24 15:15 Stool Stool Occult Blood (ARNALDO) - Final Occult Blood Positive Radiography Diagnostic Testing: Radiology Impression Abdomen/Pelvis CT 07/31/24 14:30 IMPRESSION: Colitis involving the rectosigmoid colon. Infrarenal abdominal aortic aneurysm. Fatty infiltration of the liver. Subcentimeters cyst in the left lobe of the liver. Small right adrenal adenoma. Electronically Signed: Will Sanchez MD at 15:42 EST , Physical Exam Narrative Seen and examined. Diarrhea worsened today as the diaper was full of liquid fecal matter. Transiently showed improvement yesterday. TPN running. Patient admitted with diarrhea and rectal bleeding that has been ongoing for 2 months. He was discharged on 07/23 and then admitted on 07/27. Drop in hemoglobin. PRBC ordered Physical exam General: Alert, Oriented x3, Cooperative. BMI 21.5 kg/m?, severe malnutrition HEENT: Atraumatic, PERRLA, EOMI, Normocephalic Oral: Oral mucosa is dry. No Gingival or Mucosal Lesions/ Ulcerations Neck: Supple, No JVD, Negative Carotid Bruits Chest wall/Lungs: Air entry diminished in bilateral lung bases. No crepitation/rhonchi Cardiovascular: Regular rate, Regular Rhythm, Normal S1, Normal S2, No M/G/R Abdomen: Bowel Sounds Present, Soft, Non Tender, mild distention liquid BM. : No dysuria. No renal angle tenderness. No suprapubic tenderness. Extremities: No edema, Capillary Refill Less than 3 Seconds Skin: No rashes, No breakdown Musculoskeletal: No Tenderness to Palpation of Joints or Extremities, loss of subcutaneous fat and decreased muscle bulk. Neurological: Cranial nerves II-XII grossly intact, DTR 2+/4. No acute focal neurological deficit. Psych/Mental Status: Flat affect Assessment & Plan Assessment/Plan (1) Weakness: PLAN: Plan Patient is a 74-year-old gentleman with pancolitis ulcerative colitis is a readmission after discharge for the same diagnosis of diarrhea with hematochezia. Patient was feeling dizzy and lightheaded. 1. Near syncope symptoms due to low blood pressure: Patient is being admitted in PCU. He has chronically low BP from diarrhea. Supine BP 97/63, 99/59, 106/53 and on sitting it was 93/63 and heart rate went up from 83 to 94/min. He does not meet criteria for hypotension with patient on IV fluid. 07/29: Blood pressure is still on lower side but denies any dizziness. 07/30: Blood pressure on baseline. 07/31: BP on baseline. No fever. 2. Chronic severe ulcerative colitis: Patient was discharged after almost 2 weeks of hospital stay. During that time patient was treated with IV Solu-Medrol and also Remicade was given after insurance approval. On high-dose prednisone. On mesalamine. Discussed with TNF inhibitor takes time about 6 weeks for action. 07/29: Seen by GI. 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 Continue oral vancomycin, IV Flagyl and colestipol. Based on the tolerance of new medication, recommended may consider azathioprine. 07/30: Patient had right arm PICC line. [employer] consult to calculate TPN calories and is started. Mild improvement in diarrhea. 07/31: Patient has pancytopenia, WBC 1.6, H&H dropped 6.8/22% platelet count 100 9K. Patient was started on azathioprine yesterday and is discontinued. CT abdomen pelvis with contrast done. It shows thickening and inflammatory changes in the rectosigmoid colon consistent with colitis. Patient on IV Flagyl. P.o. vancomycin for C. difficile. General surgery was consulted. Inflammatory markers, CRP and ESR and lactate are elevated. Patient does not need urgent or emergent surgical intervention. Patient is not an ideal surgical candidate for multiple regions including malnutrition. If total colectomy is warranted patient will need transfer to tertiary care/colorectal surgery. 3. Chronic normocytic normochromic anemia from hematochezia: Hemoglobin is around 8 to 9 g back to baseline. 4. Hyponatremia from hypovolemia: Serum sodium 135. 5. Dyslipidemia ?Patient is on statin therapy, continued at home dose 6. Diabetes mellitus type 2: Metformin was held due to lactic acidosis. Accu-Chek before meals and at bedtime with Humalog sliding scale coverage and hypoglycemia protocol. 7. DVT prophylaxis Anticoagulation contraindicated at this time. 8. Severe malnutrition: Patient progressively decreasing body weight. Due to pancolitis, inadequate oral intake and malabsorption from ulcerative colitis. Ensure 4 times daily Severe malnutrition as evidenced by: 5% unintentional weight loss in less than 1 month and PO meeting less than 50% estimated nutrition Charges/Coding Addendum Addendum: Total time of the visit including total time spent in counseling or coordination of care, (more than 50% of the total time, spent in obtaining medical information from nurses and other ancillary care providers ,explaining to the patient about labs, imaging, diagnosis and management of active complex medical conditions), discussion with GI and surgery, review of labs and imaging is 40 minutes. Visit Charges Inpatient E&M: 30081 Subs Hosp L3
--- NOTE | 2024-07-31 16:25 | CASEMGMT ---
Referral sent via [facility] to [facility]. Kaity Ramirez DC Planning Asst.
[2024-07-31 16:27] LABS: Reflex Lactate? Y
[2024-07-31] MEDS: Potassium Chloride 40 MEQ in 0.9% Normal Saline (1000mL) 1,000 ML 150 MEQ IV (16:50)
[2024-07-31] MEDS: TPN - Clinimix E 4.25%-5% 2,000 ML with Multivitamins 10 ML, Trace Elements 1 ML, Folic... 42 ML IV (16:50)
[2024-07-31 17:07] LABS: Aldolase 1.6 U/L (3.3-10.3)
[2024-07-31 17:23] LABS: Lactic Acid 2.9 mmol/L (0.4-1.9)
[2024-07-31 17:27] LABS: Bedside Glucose 328 mg/dL (74-106)
[2024-07-31] MEDS: Atorvastatin Calcium 10 MG Tablet PO (22:25)
[2024-08-01] MEDS: Potassium Chloride 40 MEQ in 0.9% Normal Saline (1000mL) 1,000 ML 150 MEQ IV (01:49)
[2024-08-01] MEDS: Vancomycin 125 MG/5 ML Susp PO.SYRINGE PO ×5 (01:51→22:44)
[2024-08-01 03:12] VITALS: BP 110/50; PULSE 81; RESP 17; TEMP 36.8; O2SAT 92
[2024-08-01 04:07] LABS: Prealbumin 11 mg/dL (9-32)
[2024-08-01 05:29] LABS: Bedside Glucose 275 mg/dL (74-106)
[2024-08-01 06:00] VITALS: BMI 22.6
[2024-08-01] MEDS: metroNIDAZOLE 500 MG/100 ML BAG 100 MG IV ×3 (06:35→22:33)
[2024-08-01] MEDS: Dicyclomine 10 MG Capsule PO ×3 (06:35→16:45)
[2024-08-01] MEDS: Baclofen 10 MG Tablet 5 MG PO ×3 (06:35→22:42)
[2024-08-01] MEDS: Insulin Lispro 100 UNIT/ML INSULN.PEN SC ×4 (06:38→22:36)
[2024-08-01 07:01] LABS: Bedside Glucose 167 mg/dL (74-106)
--- NOTE | 2024-08-01 08:16 | CASEMGMT ---
Addendum entered by José Luis Cho 08/01/24 15:59: Call placed to [facility]. No answer. left for him informing him pt will not be transferring to [facility] now. Addendum entered by José Luis Cho 08/01/24 15:51: Dr Hall made aware of info received from business law instructor. He states he will reach out to Dr Penny to confirm. Per Dr Hall, via Backline, Dr Penny confirmed that TPN will be stopped today. Dr Hall also states PICC line will be removed before discharge and pt can dc to SNF. Rachel REDDY, aware. Addendum entered by [facility] Cho 08/01/24 14:48: Per garett Montiel, Dr Penny is planning to discontinue TPN after current bag that is hanging is empty. Rachel REDDY, made aware. Addendum entered by [facility] Cho 08/01/24 12:39: Dr Hall made aware pending acceptance @ [facility] and that pt will not be able to discharge over the weekend. Addendum entered by José Luis Cho 08/01/24 12:38: SYDNI PRESTON placed call to [facility] ([phone], ext: [phone]). Burton made aware Homero REDDY, states pt is not service connected and would not have transfer benefits from [facility] to [facility]. Per Burton, although pt is not service connected, they can provide transport to [facility] (if pt accepted), stating, Pt should be coded according to this hospital stay and states this would only be specific to this visit. Clinicals to be faxed to [facility] @ [phone]. He states, if pt is accepted, the earliest pt could transfer would be Sunday, but states it would most likely be Sunday. SYDNI PRESTON to room to update pt and . Pt called his from his cell phone and put her on speaker phone. SYDNI PRESTON updated that no local SNF's are able to accept him (pt was updated last PM). Pt and also made aware [facility] unable to accept him. Discussed [facility] @ [facility] and [facility] aware [facility]. Questions answered. They are both agreeable to him going there. They were made aware the [facility] also states [facility]. Kaity, discharge senior it assistant, to fax clinicals to [facility] today. [facility] made aware pt and are agreeable to him going there and that clinicals will be faxed today. He states will call this RN KARY back today if they get acceptance. Otherwise, he will update ARTHUR Turpin RN, CM, on Sunday. He was provided with phone #'s. Addendum entered by José Luis Cho 08/01/24 08:48: [facility] called this SYDNI PRESTON back and states they can take pt on TPN @ the [facility] @ [facility]. Message also received from Brennon @ [facility] via [facility] that pt does meet criteria for LTAC with the TPN and severe malnutition. He requested 3 Rev codes, Managed MCR plan info, and updated notes w/how long pt will IV treatment. Original Note: SYDNI PRESTON NOTE: Call received from [facility] for updated on pt. He was aware plan was for dc to a SNF. SYDNI PRESTON informed him no SNF's have been able to accept him and now LTAC referral has been made. Burton states he will look into seeing if the [place] SNF could accept pt w/continuous TPN. He will call this RN KARY back once he has this information. Flaquita LYNN RN, CM
[2024-08-01 08:39] LABS: Absolute Lymphocyte Count 0.65 X10^3/uL (0.83-4.51); Absolute Neutrophil Count 1.3 X10^3/uL (2.0-7.7); Basophil# 0.01 X10^3/uL; Basophil% 0.5 % (0-1); Eosinophil# 0.06 X10^3/uL; Eosinophils% 2.8 % (0-5); Lymphocyte # 0.65 X10^3/ul (0.83-4.51); Lymphocyte % 30.7 % (19-41); Mean Corpuscular Hgb 29.1 pg (27.0-32.0); Mean Corpuscular Volume 90.9 fL (80-94); Mean Platelet Vol. 9.3 fl (6.2-12.0); Monocyte% 4.7 % (0-10); NRBC Flagged by Analyzer 0 % (0-5); Neutrophil # 1.27 X10^3/uL (2.7-7.7); Neutrophil % 59.9 % (47-70); POSITIVE MORPHOLOGY YES; Platelet Count 104 K/mm3 (150-450); RBC Distribution Width CV 16.2 % (11.6-14.6); RBC Distribution Width SD 53.8 fl (35.1-43.9); Red Blood Count 2.75 M/mm3 (4.6-6.2); White Blood Count 2.1 K/mm3 (4.4-11.0)
[2024-08-01 08:54] LABS: Anion Gap 4 (5-15); BUN 8 mg/dL (7-18); BUN/Creat Ratio 15.4 RATIO (10-20); Calcium,Total 7.7 mg/dL (8.5-10.1); Chloride 108 mmol/L (98-107); Creatinine, Serum 0.52 mg/dL (0.70-1.30); EST Glomerular Filtration Rate 166 mL/min (>60); Est Glom Filt Rate - Afr Amer 201 mL/min (>60); Estimated Creatinine Clearance 85.49 ml/min; Glucose 162 mg/dL (74-106); Potassium 4.2 mmol/L (3.5-5.1); Sodium Level 137 mmol/L (136-145)
[2024-08-01 09:10] LABS: Differential Indicated SCAN CRITERIA MET
[2024-08-01 09:25] VITALS: BP 106/63; PULSE 89; RESP 14; TEMP 37.6; O2SAT 96
[2024-08-01] MEDS: predniSONE 20 MG Tablet 60 MG PO (09:27)
[2024-08-01] MEDS: Pantoprazole Sodium 40 MG Tablet PO (09:27)
[2024-08-01] MEDS: Colestipol 1 GM TABLET PO ×2 (09:27→22:42)
[2024-08-01] MEDS: Thiamine Hydrochloride 100 MG Tablet PO (09:27)
[2024-08-01] MEDS: Folic Acid 1 MG Tablet PO (09:27)
[2024-08-01] MEDS: MESALAMINE 400 MG CAPSULE.DR PO ×2 (09:28→22:42)
[2024-08-01] MEDS: Pregabalin 75 MG Capsule 150 MG PO ×2 (09:28→22:37)
[2024-08-01] MEDS: Albumin Human 25% (50 mL) 12.5 GM/50 ML IV.SOLN IV ×2 (09:28→22:24)
--- NOTE | 2024-08-01 10:31 | CASEMGMT ---
Addendum entered by Rachel Shultz 08/01/24 12:12: MAUREEN received a return call from Homero at the [place]. Patient is not service connected. Homero said in order to get [place] [facility] [place] would have to go through the transfer center. MAUREEN notified RN KARY. Rachel AMARAL Original Note: MAUREEN called [facility] MAUREEN Valentin and left her a voice mail requesting a return call from her regarding patient's service connection. Rachel AMARAL
[2024-08-01] MEDS: 0.9% Saline Lock 10 ML Syringe IV (11:31)
--- NOTE | 2024-08-01 13:31 | CASEMGMT ---
Clinicals faxed to [facility]; [facility]. Fax confirmation rec'd. Kaity Ramirez DC Planning Asst.
[2024-08-01] MEDS: Glucerna Shake 120 ML LIQUID PO ×3 (13:48→22:33)
[2024-08-01 14:14] LABS: Pathologist Review Reviewed
--- NOTE | 2024-08-01 14:20 | PN.HOSP_ITS ---
Reason for Visit Reason for Visit: Diagnoses Hypotension, unspecified (07/27/24) Noninfective gastroenteritis and colitis, unspecified (07/27/24) Hemorrhage of anus and rectum (07/27/24) Weakness (07/27/24) Objective Data Objective Data Vital Signs: Vital Signs Temp Pulse Resp BP Pulse Ox O2 Del Method 99.7 F H 89 14 106/63 96 Room Air 08/01/24 09:25 08/01/24 09:25 08/01/24 09:25 08/01/24 09:25 08/01/24 09:25 08/01/24 09:57 Oxygen Delivery Method Room Air Weight: 162 lb 0.636 oz Body Mass Index (BMI) 22.6 Intake & Output: Intake and Output for Last 24 Hours 07/30/24 07/31/24 08/01/24 23:59 23:59 23:59 Intake Total 3435.0 / 3435.0 4618.8 / 4618.8 1470 / 1470 Output Total 900 / 1800 3025 / 3025 550 / 550 Balance 2535.0 / 1635.0 1593.8 / 1593.8 920 / 920 Medical Nutrition Assessment Dietitian: Malnutrition Criteria Met Start: 07/28/24 11:05 Freq: Status: Active Protocol: Document 07/28/24 15:20 SB (Rec: 07/28/24 15:20 SB [id number]) Nutrition Malnutrition Evidence of Malnutrition Exists Yes Evidenced By Suboptimal Energy Intake ( Severe),Weight Loss (Severe) Clinical Problem Acute Disease or Injury Related Malnutrition Etiology severe protein-calorie malnutrition in the context of acute illness related to altered GI function and inadequate oral intake Signs/Symptoms as evidenced by 2% unintentional weight loss x 1 week and PO meeting <75% of estimated nutrition needs x 2- 3 weeks. Status Active Problem Recommendation Dietitian Recommendations/Changes Continue 1800 calorie controlled/consistent carbohydrate diet. Continue 120ml glucerna shake 4x daily with medpass. Will order vanilla fortified pudding with dinner tray. Will monitor weight trends. Reviewed and approved by Marita Wu RD,LD. Lab / Micro Data 08/01/24 07:49 08/01/24 07:49 Labs: Laboratory Results - last 24 hr 07/30/24 00:50: Aldolase 1.6 L 07/31/24 10:43: WBC 1.6 L, RBC 2.55 L, Hgb 7.2 L, Hct 23.3 L, MCV 91.4, MCH 28.2, MCHC 30.9 L, RDW Std Deviation 56.0 H, RDW Coeff of Janice 16.7 H, Plt Count 109 L, MPV 9.2, Immature Gran % (Auto) 0.000, Neut % (Auto) 59.0, Lymph % (Auto) 32.5, [place] % (Auto) 6.7, Eos % (Auto) 1.2, Baso % (Auto) 0.6, Absolute Neuts (auto) 1.0 L, Absolute Lymphs (auto) 0.53 L, Nucleated RBC % 0, Differential Comment SCANNED, Diff Path Review Reviewed, ESR 20, Crossmatch See Detail 07/31/24 12:10: Prealbumin 11 07/31/24 14:56: PT 15.7 H, INR 1.2, APTT 30.0, Fibrinogen 432 07/31/24 16:47: Lactic Acid 2.9 H* 07/31/24 16:52: POC Glucose 328 H 07/31/24 22:20: POC Glucose 275 H 08/01/24 06:38: POC Glucose 167 H 08/01/24 07:49: WBC 2.1 L, RBC 2.75 L, Hgb 8.0 L, Hct 25.0 L, MCV 90.9, MCH 29.1, MCHC 32.0, RDW Std Deviation 53.8 H, RDW Coeff of Janice 16.2 H, Plt Count 104 L, MPV 9.3, Immature Gran % (Auto) 1.400 H, Neut % (Auto) 59.9, Lymph % (Auto) 30.7, [place] % (Auto) 4.7, Eos % (Auto) 2.8, Baso % (Auto) 0.5, Absolute Neuts (auto) 1.3 L, Absolute Lymphs (auto) 0.65 L, Nucleated RBC % 0, Sodium 137, Potassium 4.2, Chloride 108 H, Carbon Dioxide 24.0, Anion Gap 4 L, BUN 8, C reatinine 0.52 L, Estim Creat Clear Calc 85.49, Est GFR (MDRD) Af Amer 201, Est GFR (MDRD) Non-Af 166, BUN/Creatinine Ratio 15.4, Glucose 162 H, Calcium 7.7 L, Magnesium 2.0 Micro: Microbiology 07/28/24 05:32 Stool Enteric Bacteriology - Final 07/28/24 05:32 Stool C. difficile GDH Antigen & Toxins - Final 07/28/24 05:32 Stool Clostridioides difficile (PCR) - Final 07/27/24 15:15 Stool Stool Occult Blood (ARNALDO) - Final Occult Blood Positive Radiography Diagnostic Testing: Radiology Impression Abdomen/Pelvis CT 07/31/24 14:30 IMPRESSION: Colitis involving the rectosigmoid colon. Infrarenal abdominal aortic aneurysm. Fatty infiltration of the liver. Subcentimeters cyst in the left lobe of the liver. Small right adrenal adenoma. Electronically Signed: Will Sanchez MD at 15:42 EST , Physical Exam Narrative Seen and examined. Patient had 2 times loose bowel movement yesterday and today. Hemoglobin increased to 8.0. No significant abdominal pain Patient admitted with diarrhea and rectal bleeding that has been ongoing for 2 months. He was discharged on 07/23 and then admitted on 07/27. Drop in hemoglobin. PRBC ordered Physical exam General: Alert, Oriented x3, Cooperative. BMI 21.5 kg/m?, severe malnutrition HEENT: Atraumatic, PERRLA, EOMI, Normocephalic Oral: Oral mucosa is dry. No Gingival or Mucosal Lesions/ Ulcerations Neck: Supple, No JVD, Negative Carotid Bruits Chest wall/Lungs: Air entry diminished in bilateral lung bases. No crepitation/rhonchi Cardiovascular: Regular rate, Regular Rhythm, Normal S1, Normal S2, No M/G/R Abdomen: Bowel Sounds Present, Soft, Non Tender, mild distention liquid BM. : No dysuria. No renal angle tenderness. No suprapubic tenderness. Extremities: No edema, Capillary Refill Less than 3 Seconds Skin: No rashes, No breakdown Musculoskeletal: No Tenderness to Palpation of Joints or Extremities, loss of subcutaneous fat and decreased muscle bulk. Neurological: Cranial nerves II-XII grossly intact, DTR 2+/4. No acute focal neurological deficit. Psych/Mental Status: Flat affect Assessment & Plan Assessment/Plan (1) Weakness: PLAN: Plan Patient is a 74-year-old gentleman with pancolitis ulcerative colitis is a readmission after discharge for the same diagnosis of diarrhea with hematochezia. Patient was feeling dizzy and lightheaded. 1. Near syncope symptoms due to low blood pressure: Patient is being admitted in PCU. He has chronically low BP from diarrhea. Supine BP 97/63, 99/59, 106/53 and on sitting it was 93/63 and heart rate went up from 83 to 94/min. He does not meet criteria for hypotension with patient on IV fluid. 07/29: Blood pressure is still on lower side but denies any dizziness. 07/30: Blood pressure on baseline. 07/31: BP on baseline. No fever. 08/01: Heart rate and blood pressure normal limit. No fever. 2. Chronic severe ulcerative colitis: Patient was discharged after almost 2 weeks of hospital stay. During that time patient was treated with IV Solu- Medrol and also Remicade was given after insurance approval. On high-dose prednisone. On mesalamine. Discussed with TNF inhibitor takes time about 6 weeks for action. 07/29: Seen by GI. 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 Continue oral vancomycin, IV Flagyl and colestipol. Based on the tolerance of new medication, recommended may consider azathioprine. 07/30: Patient had right arm PICC line. Foreclosure Home Inspector consult to calculate TPN calories and is started. Mild improvement in diarrhea. 07/31: Patient has pancytopenia, WBC 1.6, H&H dropped 6.8/22% platelet count 100 9K. Patient was started on azathioprine yesterday and is discontinued. CT abdomen pelvis with contrast done. It shows thickening and inflammatory changes in the rectosigmoid colon consistent with colitis. Patient on IV Flagyl. P.o. vancomycin for C. difficile. General surgery was consulted. Inflammatory markers, CRP and ESR and lactate are elevated. Patient does not need urgent or emergent surgical intervention. Patient is not an ideal surgical candidate for multiple regions including malnutrition. If total colectomy is warranted patient will need transfer to tertiary care/colorectal surgery. 08/01: Frequency of loose bowel movement is better today. 3. Chronic normocytic normochromic anemia from hematochezia: Hemoglobin is around 8 to 9 g back to baseline. 08/01: Hemoglobin is decreased to 6.8 yesterday and 1 unit of PRBC was ordered. Hemoglobin increased to 8 g%. # Pancytopenia WBC 2.1K, ANC 1.3K and platelet count 104 K 4. Hyponatremia from hypovolemia: Serum sodium 135. 08/01: Sodium is 137, potassium 4.2. 5. Dyslipidemia ?Patient is on statin therapy, continued at home dose 6. Diabetes mellitus type 2: Metformin was held due to lactic acidosis. Accu- Chek before meals and at bedtime with Humalog sliding scale coverage and hypoglycemia protocol. 7. DVT prophylaxis Anticoagulation contraindicated at this time. 8. Severe malnutrition: Patient progressively decreasing body weight. Due to pancolitis, inadequate oral intake and malabsorption from ulcerative colitis. Ensure 4 times daily Severe malnutrition as evidenced by: 5% unintentional weight loss in less than 1 month and PO meeting less than 50% estimated nutrition 08/01: During this hospital stay, patient had right arm PICC line and TPN was started. Charges/Coding Visit Charges Inpatient E&M: 73779 Subs Hosp L2
--- NOTE | 2024-08-01 14:33 | PN.SURG_ITS ---
Subjective Subjective CT yesterday showed thickening of the rectosigmoid region consistent with colitis. No evidence of perforation or abscess or megacolon. Today he states that his symptoms are about the same as previous days. He does not really endorse any improvement but does not feel that he is worsening. He actually denies any significant abdominal pain. He has had a couple bowel movements that were fairly liquid in consistency. Objective Data Objective Data Vital Signs: Vital Signs Temp Pulse Resp BP Pulse Ox O2 Del Method 99.7 F H 89 14 106/63 96 Room Air 08/01/24 09:25 08/01/24 09:25 08/01/24 09:25 08/01/24 09:25 08/01/24 09:25 08/01/24 09:57 Oxygen Delivery Method Room Air Weight: 162 lb 0.636 oz Body Mass Index (BMI) 22.6 Intake & Output: Intake and Output for Last 24 Hours 07/30/24 07/31/24 08/01/24 23:59 23:59 23:59 Intake Total 3435.0 / 3435.0 4618.8 / 4618.8 1470 / 1470 Output Total 900 / 1800 3025 / 3025 550 / 550 Balance 2535.0 / 1635.0 1593.8 / 1593.8 920 / 920 Medical Nutrition Assessment Dietitian: Malnutrition Criteria Met Start: 07/28/24 11:05 Freq: Status: Active Protocol: Document 07/28/24 15:20 SB (Rec: 07/28/24 15:20 SB [id number]) Nutrition Malnutrition Evidence of Malnutrition Exists Yes Evidenced By Suboptimal Energy Intake ( Severe),Weight Loss (Severe) Clinical Problem Acute Disease or Injury Related Malnutrition Etiology severe protein-calorie malnutrition in the context of acute illness related to altered GI function and inadequate oral intake Signs/Symptoms as evidenced by 2% unintentional weight loss x 1 week and PO meeting <75% of estimated nutrition needs x 2- 3 weeks. Status Active Problem Recommendation Dietitian Recommendations/Changes Continue 1800 calorie controlled/consistent carbohydrate diet. Continue 120ml glucerna shake 4x daily with medpass. Will order vanilla fortified pudding with dinner tray. Will monitor weight trends. Reviewed and approved by Marita Wu RD,LD. Lab / Micro Data 08/01/24 07:49 08/01/24 07:49 Labs: Laboratory Results - last 24 hr 07/30/24 00:50: Aldolase 1.6 L 07/31/24 10:43: WBC 1.6 L, RBC 2.55 L, Hgb 7.2 L, Hct 23.3 L, MCV 91.4, MCH 28.2, MCHC 30.9 L, RDW Std Deviation 56.0 H, RDW Coeff of Janice 16.7 H, Plt Count 109 L, MPV 9.2, Immature Gran % (Auto) 0.000, Neut % (Auto) 59.0, Lymph % (Auto) 32.5, [place] % (Auto) 6.7, Eos % (Auto) 1.2, Baso % (Auto) 0.6, Absolute Neuts (auto) 1.0 L, Absolute Lymphs (auto) 0.53 L, Nucleated RBC % 0, Differential Comment SCANNED, Diff Path Review Reviewed, ESR 20, Crossmatch See Detail 07/31/24 12:10: Prealbumin 11 07/31/24 14:56: PT 15.7 H, INR 1.2, APTT 30.0, Fibrinogen 432 07/31/24 16:47: Lactic Acid 2.9 H* 07/31/24 16:52: POC Glucose 328 H 07/31/24 22:20: POC Glucose 275 H 08/01/24 06:38: POC Glucose 167 H 08/01/24 07:49: WBC 2.1 L, RBC 2.75 L, Hgb 8.0 L, Hct 25.0 L, MCV 90.9, MCH 29.1, MCHC 32.0, RDW Std Deviation 53.8 H, RDW Coeff of Janice 16.2 H, Plt Count 104 L, MPV 9.3, Immature Gran % (Auto) 1.400 H, Neut % (Auto) 59.9, Lymph % (Auto) 30.7, [place] % (Auto) 4.7, Eos % (Auto) 2.8, Baso % (Auto) 0.5, Absolute Neuts (auto) 1.3 L, Absolute Lymphs (auto) 0.65 L, Nucleated RBC % 0, Sodium 137, Potassium 4.2, Chloride 108 H, Carbon Dioxide 24.0, Anion Gap 4 L, BUN 8, C reatinine 0.52 L, Estim Creat Clear Calc 85.49, Est GFR (MDRD) Af Amer 201, Est GFR (MDRD) Non-Af 166, BUN/Creatinine Ratio 15.4, Glucose 162 H, Calcium 7.7 L, Magnesium 2.0 Micro: Microbiology 07/28/24 05:32 Stool Enteric Bacteriology - Final 07/28/24 05:32 Stool C. difficile GDH Antigen & Toxins - Final 07/28/24 05:32 Stool Clostridioides difficile (PCR) - Final 07/27/24 15:15 Stool Stool Occult Blood (ARNALDO) - Final Occult Blood Positive Radiography Diagnostic Testing: Radiology Impression Abdomen/Pelvis CT 07/31/24 14:30 IMPRESSION: Colitis involving the rectosigmoid colon. Infrarenal abdominal aortic aneurysm. Fatty infiltration of the liver. Subcentimeters cyst in the left lobe of the liver. Small right adrenal adenoma. Electronically Signed: Will Sanchez MD at 15:42 EST , Physical Exam Narrative He is awake and alert. He is in no acute distress. Head is normocephalic and atraumatic. Pupils are equal round and reactive to light. Abdomen is soft and slightly distended. No significant tenderness to palpation. Certainly no rebound or guarding. Assessment & Plan Assessment/Plan (1) Exacerbation of ulcerative colitis with rectal bleeding: PLAN: Plan Patient is a 74-year-old male with history of ulcerative colitis. He was recently admitted and discharged from the hospital waiting to be readmitted less than a week later for recurrent C. difficile infection on top of his already active ulcerative colitis. He is currently being treated with steroid and Remicade. From medical standpoint he has been treated aggressively and appropriately but seems to be stable but not really making any significant improvement at this point. He has had some elevated lactate levels in the past few days. From a surgical standpoint, he is not really an ideal surgical candidate given his level of malnutrition and being on steroids/Remicade. At this point I would recommend continued medical management. He does not require any emergent surgery at this time as he remains clinically stable with only minimal symptoms. Will continue to follow and advise accordingly. Dr. Louie to cover weekend until 08/05/2024. I will return on the . Should his clinical condition worsen, he would most likely be requiring a total abdominal colectomy with ileostomy. We have talked about this ideally taking place at a tertiary center with colorectal surgery.
--- NOTE | 2024-08-01 15:46 | CASEMGMT ---
Referral sent to [facility]. Kaity Ramirez DC Planning Asst.
--- NOTE | 2024-08-01 15:54 | CASEMGMT ---
Patient will not be discharged on TPN now. Patient will be able to go to [facility] as long as they still have bed availability. SW notified patient and his Nunu. Plan: [facility] pending bed availability and insurance approval. Rachel AMARAL
[2024-08-01 16:48] VITALS: BP 110/60; PULSE 74; RESP 16; TEMP 36.1; O2SAT 95
[2024-08-01 17:09] LABS: Bedside Glucose 347 mg/dL (74-106)
--- NOTE | 2024-08-01 19:00 | PN.GI_ITS ---
Subjective Subjective Patient is doing a lot better today. His stools have slowed down. His azathioprine was stopped. He is eating all of his food. Objective Data Objective Data Vital Signs: Vital Signs Temp Pulse Resp BP Pulse Ox O2 Del Method 97.0 F L 74 16 110/60 95 Room Air 08/01/24 16:48 08/01/24 16:48 08/01/24 16:48 08/01/24 16:48 08/01/24 16:48 08/01/24 16:48 Oxygen Delivery Method Room Air Weight: 162 lb 0.636 oz Body Mass Index (BMI) 22.6 Intake & Output: Intake and Output for Last 24 Hours 07/30/24 07/31/24 08/01/24 23:59 23:59 23:59 Intake Total 3435.0 / 3435.0 4618.8 / 4618.8 1720 / 1720 Output Total 900 / 1800 3025 / 3025 1000 / 1000 Balance 2535.0 / 1635.0 1593.8 / 1593.8 720 / 720 Medical Nutrition Assessment Dietitian: Malnutrition Criteria Met Start: 07/28/24 11:05 Freq: Status: Active Protocol: Document 07/28/24 15:20 SB (Rec: 07/28/24 15:20 SB [id number]) Nutrition Malnutrition Evidence of Malnutrition Exists Yes Evidenced By Suboptimal Energy Intake ( Severe),Weight Loss (Severe) Clinical Problem Acute Disease or Injury Related Malnutrition Etiology severe protein-calorie malnutrition in the context of acute illness related to altered GI function and inadequate oral intake Signs/Symptoms as evidenced by 2% unintentional weight loss x 1 week and PO meeting <75% of estimated nutrition needs x 2- 3 weeks. Status Active Problem Recommendation Dietitian Recommendations/Changes Continue 1800 calorie controlled/consistent carbohydrate diet. Continue 120ml glucerna shake 4x daily with medpass. Will order vanilla fortified pudding with dinner tray. Will monitor weight trends. Reviewed and approved by Marita Wu RD,LD. Lab / Micro Data 08/01/24 07:49 08/01/24 07:49 Labs: Laboratory Results - last 24 hr 07/31/24 10:43: Diff Path Review Reviewed 07/31/24 12:10: Prealbumin 11 07/31/24 22:20: POC Glucose 275 H 08/01/24 06:38: POC Glucose 167 H 08/01/24 07:49: WBC 2.1 L, RBC 2.75 L, Hgb 8.0 L, Hct 25.0 L, MCV 90.9, MCH 29.1, MCHC 32.0, RDW Std Deviation 53.8 H, RDW Coeff of Janice 16.2 H, Plt Count 104 L, MPV 9.3, Immature Gran % (Auto) 1.400 H, Neut % (Auto) 59.9, Lymph % (Auto) 30.7, [place] % (Auto) 4.7, Eos % (Auto) 2.8, Baso % (Auto) 0.5, Absolute Neuts (auto) 1.3 L, Absolute Lymphs (auto) 0.65 L, Nucleated RBC % 0, Sodium 137, Potassium 4.2, Chloride 108 H, Carbon Dioxide 24.0, Anion Gap 4 L, BUN 8, C reatinine 0.52 L, Estim Creat Clear Calc 85.49, Est GFR (MDRD) Af Amer 201, Est GFR (MDRD) Non-Af 166, BUN/Creatinine Ratio 15.4, Glucose 162 H, Calcium 7.7 L, Magnesium 2.0 08/01/24 16:43: POC Glucose 347 H Micro: Microbiology 07/28/24 05:32 Stool Enteric Bacteriology - Final 07/28/24 05:32 Stool C. difficile GDH Antigen & Toxins - Final 07/28/24 05:32 Stool Clostridioides difficile (PCR) - Final 07/27/24 15:15 Stool Stool Occult Blood (ARNALDO) - Final Occult Blood Positive Physical Exam Narrative Seen and examined. d Physical exam General: Alert, Oriented x3, Cooperative. BMI 21.5 kg/m?, severe malnutrition HEENT: Atraumatic, PERRLA, EOMI, Normocephalic Oral: Oral mucosa is dry. No Gingival or Mucosal Lesions/ Ulcerations Neck: Supple, No JVD, Negative Carotid Bruits Chest wall/Lungs: Air entry diminished in bilateral lung bases. No crepitation/rhonchi Cardiovascular: Regular rate, Regular Rhythm, Normal S1, Normal S2, No M/G/R Abdomen: Bowel Sounds Present, Soft, Non Tender, mild distention liquid BM. : No dysuria. No renal angle tenderness. No suprapubic tenderness. Extremities: No edema, Capillary Refill Less than 3 Seconds Skin: No rashes, No breakdown Musculoskeletal: No Tenderness to Palpation of Joints or Extremities, loss of subcutaneous fat and decreased muscle bulk. Neurological: Cranial nerves II-XII grossly intact, DTR 2+/4. No acute focal neurological deficit. Psych/Mental Status: Flat affect Assessment & Plan Assessment/Plan (1) Weakness: (2) Hypotension: (3) Colitis: (4) Rectal bleed: PLAN: Plan 74-year-old with severe reid ulcerative colitis complicated by C. 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 He is on steroid therapy. I will start vancomycin, IV Flagyl and colestipol. I will also check ESR, CRP, lactate. Steroids can be continued. If he tolerates these new oral medicines then I may start him on azathioprine. I will add Ensure protein +4 times a day. He will need TPN as he has severe hypoalbuminemia and start him IV albumin. In the context of severe ulcerative colitis, low albumin levels are considered a significant marker of disease severity and can indicate a poor prognosis, often requiring further medical intervention;?in such cases,?albumin may be administered intravenously to help raise serum albumin levels and potentially improve patient outcomes, although the primary focus should be on managing the underlying inflammation causing the low albumin levels.? 07/30/2024-severe reid ulcerative colitis complicated by C. difficile colitis along with weight loss, protein calorie malnutrition, protein-losing enteropathy, hyperglobulinemia, bicytopenia. He also has a intermittent lactic acidosis likely secondary from increased inflammation in his colon. He has not suffered any side effects from the azathioprine and steroids at this time. I will titrate up his azathioprine. His goal would be between 1 mg a kilogram of body weight and 2.5 mg/kg body weight for his severe ulcerative colitis. Recommend stool for CMV. He will be getting TPN. I talk with his and gave her an update on how he is doing. Patient is still high risk for needing colectomy. 07/31/2024-his abdominal pain is definitely better. He still being maintained on TPN. We checked magnesium, phosphorus, CBC, CMP. Blood work is pending except for the CBC. He is showing signs of pancytopenia that is likely a side effect of his azathioprine. He was increased from 50 mg to 100 mg a day. We will DC the Imuran. This also can be a side effect of prednisone. I think we need to keep mild immunosuppression with prednisone. If it is counts continue to go down then he may need repeat blood transfusions and possibly Neupogen. We consulted general surgery. At this time he appears to be stable so he does not need surgical intervention. I appreciate the consultation. It was recommended to repeat his CT scan abdomen pelvis and we will order that now. It does concern me that his CRP is back up to 75 when it was down to 5. Guarded prognosis at this time. 08/01/2024-patient is eating all his food so we can DC TPN. His hemoglobin is back up to 8 after blood transfusion. I think it was mostly secondary to immunosuppression from azathioprine and prednisone combination. He will only be on prednisone at this time. Hopefully I will have his blood counts will improve with him still on prednisone. Otherwise this will have to be stopped. Guarded condition. Charges/Coding Visit Charges Inpatient E&M: 66563 Subs Hosp L3
[2024-08-01 20:14] VITALS: BP 154/83; PULSE 99; RESP 17; TEMP 36.5; O2SAT 94
[2024-08-01 20:16] VITALS: O2SAT 94
[2024-08-01 20:18] VITALS: BP 154/83; PULSE 99; RESP 17; TEMP 36.5; O2SAT 94
[2024-08-01] MEDS: Nystatin Powder 15gm Bottle 1 APPLIC TOPICAL (22:38)
[2024-08-01] MEDS: Atorvastatin Calcium 10 MG Tablet PO (22:42)
[2024-08-01 23:06] LABS: Bedside Glucose 328 mg/dL (74-106)
[2024-08-02] VITALS (7 sets, daily range): BP systolic 93–118; BP diastolic 55–60; PULSE 62–79; RESP 16–18; TEMP 36.6–37.9; O2SAT 92–96; BMI 21.9; BMI 22.0
[2024-08-02] MEDS: metroNIDAZOLE 500 MG/100 ML BAG 100 MG IV ×3 (05:36→21:27)
[2024-08-02] MEDS: Vancomycin 125 MG/5 ML Susp PO.SYRINGE PO ×4 (05:37→22:39)
[2024-08-02] MEDS: Dicyclomine 10 MG Capsule PO ×3 (05:37→17:48)
[2024-08-02] MEDS: Baclofen 10 MG Tablet 5 MG PO ×3 (05:37→21:33)
[2024-08-02] MEDS: Insulin Lispro 100 UNIT/ML INSULN.PEN SC ×4 (05:42→21:51)
[2024-08-02 06:33] LABS: Bedside Glucose 167 mg/dL (74-106)
[2024-08-02 06:33] LABS: Absolute Neutrophil Count 1.3 X10^3/uL (2.0-7.7); Basophil# 0.01 X10^3/uL; Basophil% 0.4 % (0-1); Eosinophil# 0.05 X10^3/uL; Eosinophils% 2.1 % (0-5); Hematocrit 26.4 % (40-54); Hemoglobin 8.5 g/dL (13.0-16.5); Lymphocyte % 34.2 % (19-41); Mean Corp Hgb Conc 32.2 g/dL (32-36); Mean Corpuscular Hgb 28.9 pg (27.0-32.0); Mean Corpuscular Volume 89.8 fL (80-94); Mean Platelet Vol. 9.2 fl (6.2-12.0); Monocyte# 0.11 X10^3/uL; Monocyte% 4.7 % (0-10); NRBC Flagged by Analyzer 0 % (0-5); Neutrophil # 1.34 X10^3/uL (2.7-7.7); Neutrophil % 57.3 % (47-70); POSITIVE MORPHOLOGY YES; Platelet Count 107 K/mm3 (150-450); RBC Distribution Width CV 16.6 % (11.6-14.6); RBC Distribution Width SD 54.6 fl (35.1-43.9); Red Blood Count 2.94 M/mm3 (4.6-6.2); White Blood Count 2.3 K/mm3 (4.4-11.0)
[2024-08-02 07:01] LABS: Differential Indicated SCAN CRITERIA MET
[2024-08-02 07:15] LABS: Anisocytosis 1+
[2024-08-02 07:30] LABS: Anion Gap 4 (5-15); BUN 10 mg/dL (7-18); BUN/Creat Ratio 19.2 RATIO (10-20); Calcium,Total 7.9 mg/dL (8.5-10.1); Chloride 106 mmol/L (98-107); Creatinine, Serum 0.52 mg/dL (0.70-1.30); EST Glomerular Filtration Rate 166 mL/min (>60); Est Glom Filt Rate - Afr Amer 200 mL/min (>60); Estimated Creatinine Clearance 83.05 ml/min; Glucose 155 mg/dL (74-106); Magnesium 2.1 mg/dL (1.6-2.6); Potassium 3.8 mmol/L (3.5-5.1); Sodium Level 135 mmol/L (136-145)
[2024-08-02] MEDS: Thiamine Hydrochloride 100 MG Tablet PO (09:05)
[2024-08-02] MEDS: MESALAMINE 400 MG CAPSULE.DR PO ×2 (09:05→21:33)
[2024-08-02] MEDS: Folic Acid 1 MG Tablet PO (09:05)
[2024-08-02] MEDS: Pantoprazole Sodium 40 MG Tablet PO (09:05)
[2024-08-02] MEDS: predniSONE 20 MG Tablet 60 MG PO (09:05)
[2024-08-02] MEDS: Colestipol 1 GM TABLET PO ×2 (09:05→21:33)
[2024-08-02] MEDS: Nystatin Powder 15gm Bottle 1 APPLIC TOPICAL ×2 (09:06→21:37)
[2024-08-02] MEDS: Pregabalin 75 MG Capsule 150 MG PO ×2 (09:14→21:33)
[2024-08-02] MEDS: Albumin Human 25% (50 mL) 12.5 GM/50 ML IV.SOLN IV ×2 (09:15→21:36)
[2024-08-02] MEDS: Glucerna Shake 120 ML LIQUID PO ×4 (09:23→21:34)
--- NOTE | 2024-08-02 10:02 | PN.SURG_ITS ---
Subjective Subjective Patient seen and examined during AM rounds. Is resting in bed and appears to have just finished breakfast. He states that he is still having frequent bloody bowel movements including 1 just an hour ago. He denies any abdominal pain. He indicates that he has been approached about discharge to rehab early next week. Objective Data Objective Data Vital Signs: Vital Signs Temp Pulse Resp BP Pulse Ox O2 Del Method 100.3 F H 79 18 117/60 92 Room Air 08/02/24 08:30 08/02/24 08:30 08/02/24 08:30 08/02/24 08:30 08/02/24 08:30 08/02/24 08:58 Oxygen Delivery Method Room Air Weight: 157 lb 6.561 oz Body Mass Index (BMI) 22.0 Intake & Output: Intake and Output for Last 24 Hours 07/31/24 08/01/24 08/02/24 23:59 23:59 23:59 Intake Total 4618.8 / 4618.8 1870 / 2170 400 / 400 Output Total 3025 / 3025 1475 / 1775 300 / 300 Balance 1593.8 / 1593.8 395 / 395 100 / 100 Medical Nutrition Assessment Dietitian: Malnutrition Criteria Met Start: 07/28/24 11:05 Freq: Status: Active Protocol: Document 07/28/24 15:20 SB (Rec: 07/28/24 15:20 SB [id number]) Nutrition Malnutrition Evidence of Malnutrition Exists Yes Evidenced By Suboptimal Energy Intake ( Severe),Weight Loss (Severe) Clinical Problem Acute Disease or Injury Related Malnutrition Etiology severe protein-calorie malnutrition in the context of acute illness related to altered GI function and inadequate oral intake Signs/Symptoms as evidenced by 2% unintentional weight loss x 1 week and PO meeting <75% of estimated nutrition needs x 2- 3 weeks. Status Active Problem Recommendation Dietitian Recommendations/Changes Continue 1800 calorie controlled/consistent carbohydrate diet. Continue 120ml glucerna shake 4x daily with medpass. Will order vanilla fortified pudding with dinner tray. Will monitor weight trends. Reviewed and approved by Marita Wu RD,LD. Lab / Micro Data 08/02/24 06:18 08/02/24 06:18 Labs: Laboratory Results - last 24 hr 07/31/24 10:43: Diff Path Review Reviewed 08/01/24 16:43: POC Glucose 347 H 08/01/24 22:36: POC Glucose 328 H 08/02/24 05:41: POC Glucose 167 H 08/02/24 06:18: WBC 2.3 L, RBC 2.94 L, Hgb 8.5 L, Hct 26.4 L, MCV 89.8, MCH 28.9, MCHC 32.2, RDW Std Deviation 54.6 H, RDW Coeff of Janice 16.6 H, Plt Count 107 L, MPV 9.2, Immature Gran % (Auto) 1.300 H, Neut % (Auto) 57.3, Lymph % (Auto) 34.2, [place] % (Auto) 4.7, Eos % (Auto) 2.1, Baso % (Auto) 0.4, Absolute Neuts (auto) 1.3 L, Absolute Lymphs (auto) 0.80 L, Nucleated RBC % 0, Anisocytosis 1+, Sodium 135 L, Potassium 3.8, Chloride 106, Carbon Dioxide 25.0, Anion Gap 4 L, BUN 10, Creatinine 0.52 L, Estim Creat Clear Calc 83.05, Est GFR (MDRD) Af Amer 200, Est GFR (MDRD) Non-Af 166, BUN/Creatinine Ratio 19.2, G lucose 155 H, Calcium 7.9 L, Magnesium 2.1 Micro: Microbiology 07/28/24 05:32 Stool Enteric Bacteriology - Final 07/28/24 05:32 Stool C. difficile GDH Antigen & Toxins - Final 07/28/24 05:32 Stool Clostridioides difficile (PCR) - Final 07/27/24 15:15 Stool Stool Occult Blood (ARNALDO) - Final Occult Blood Positive Physical Exam Const oriented x3 and no apparent distress Resp normal respiratory effort GI GI Narrative: Nondistended, soft, nontender to palpation x 4 quadrants Assessment & Plan Assessment/Plan (1) Exacerbation of ulcerative colitis with rectal bleeding: PLAN: Plan Patient is a 74-year-old male with history of ulcerative colitis currently in flare and was recently treated for C. difficile colitis. Patient describes ongoing bloody bowel movements, however, his hemoglobin appears further improved over yesterday. He has a benign abdomen on exam. In review of the record it looks as though TPN was supposed to stop yesterday but there appears to be an active order in TPN bag still hanging. If patient is felt to be consuming enough calories/protein calories by mouth would recommend discontinuation of TPN. Additionally, recommend considering restart of p.o. vancomycin versus transition to second line agent as a means of maximizing medical therapy and minimizing patient's need for surgery. Agree with Dr. Murillo's assessment that patient would require total abdominal colectomy with ileostomy if his condition deteriorated either on account of UC or C. difficile. Find no indication at present for emergent surgical intervention and even see some clinical improvements? Will continue to follow. Case discussed with primary hospitalist as well as gastroenterology, Dr. Lindo Friend. Edin Louie MD General Surgery Endocrine Surgery Pager: [facility] [address] [place] [address], [facility], [address] [place] [id number] Office: [phone] Charges/Coding Visit Charges Inpatient E&M: 04029 [facility] Hosp L2
--- NOTE | 2024-08-02 10:59 | EX.PCM.PN.GI ---
Subjective Subjective Patient denies any abdominal pain but is still having multiple episodes of lower GI bleeding. He was transfused 1 unit packed red blood cell yesterday. He states that he feels about the same. We stopped his TPN. Objective Data Objective Data Vital Signs: Vital Signs Temp Pulse Resp BP Pulse Ox O2 Del Method 100.3 F H 79 18 117/60 92 Room Air 08/02/24 08:30 08/02/24 08:30 08/02/24 08:30 08/02/24 08:30 08/02/24 08:30 08/02/24 08:58 Oxygen Delivery Method Room Air Weight: 157 lb 6.561 oz Body Mass Index (BMI) 22.0 Intake & Output: Intake and Output for Last 24 Hours 07/31/24 08/01/24 08/02/24 23:59 23:59 23:59 Intake Total 4618.8 / 4618.8 1870 / 2170 400 / 400 Output Total 3025 / 3025 1475 / 1775 300 / 300 Balance 1593.8 / 1593.8 395 / 395 100 / 100 Medical Nutrition Assessment Dietitian: Malnutrition Criteria Met Start: 07/28/24 11:05 Freq: Status: Active Protocol: Document 07/28/24 15:20 SB (Rec: 07/28/24 15:20 SB [id number]) Nutrition Malnutrition Evidence of Malnutrition Exists Yes Evidenced By Suboptimal Energy Intake ( Severe),Weight Loss (Severe) Clinical Problem Acute Disease or Injury Related Malnutrition Etiology severe protein-calorie malnutrition in the context of acute illness related to altered GI function and inadequate oral intake Signs/Symptoms as evidenced by 2% unintentional weight loss x 1 week and PO meeting <75% of estimated nutrition needs x 2- 3 weeks. Status Active Problem Recommendation Dietitian Recommendations/Changes Continue 1800 calorie controlled/consistent carbohydrate diet. Continue 120ml glucerna shake 4x daily with medpass. Will order vanilla fortified pudding with dinner tray. Will monitor weight trends. Reviewed and approved by Marita Wu RD,LD. Lab / Micro Data 08/02/24 06:18 08/02/24 06:18 Labs: Laboratory Results - last 24 hr 07/31/24 10:43: Diff Path Review Reviewed 08/01/24 16:43: POC Glucose 347 H 08/01/24 22:36: POC Glucose 328 H 08/02/24 05:41: POC Glucose 167 H 08/02/24 06:18: WBC 2.3 L, RBC 2.94 L, Hgb 8.5 L, Hct 26.4 L, MCV 89.8, MCH 28.9, MCHC 32.2, RDW Std Deviation 54.6 H, RDW Coeff of Janice 16.6 H, Plt Count 107 L, MPV 9.2, Immature Gran % (Auto) 1.300 H, Neut % (Auto) 57.3, Lymph % (Auto) 34.2, [place] % (Auto) 4.7, Eos % (Auto) 2.1, Baso % (Auto) 0.4, Absolute Neuts (auto) 1.3 L, Absolute Lymphs (auto) 0.80 L, Nucleated RBC % 0, Anisocytosis 1+, Sodium 135 L, Potassium 3.8, Chloride 106, Carbon Dioxide 25.0, Anion Gap 4 L, BUN 10, Creatinine 0.52 L, Estim Creat Clear Calc 83.05, Est GFR (MDRD) Af Amer 200, Est GFR (MDRD) Non-Af 166, BUN/Creatinine Ratio 19.2, Glucose 155 H, Calcium 7.9 L, Magnesium 2.1 Micro: Microbiology 07/28/24 05:32 Stool Enteric Bacteriology - Final 07/28/24 05:32 Stool C. difficile GDH Antigen & Toxins - Final 07/28/24 05:32 Stool Clostridioides difficile (PCR) - Final 07/27/24 15:15 Stool Stool Occult Blood (ARNALDO) - Final Occult Blood Positive Physical Exam Narrative Seen and examined. d Physical exam General: Alert, Oriented x3, Cooperative. BMI 21.5 kg/m?, severe malnutrition HEENT: Atraumatic, PERRLA, EOMI, Normocephalic Oral: Oral mucosa is dry. No Gingival or Mucosal Lesions/ Ulcerations Neck: Supple, No JVD, Negative Carotid Bruits Chest wall/Lungs: Air entry diminished in bilateral lung bases. No crepitation/rhonchi Cardiovascular: Regular rate, Regular Rhythm, Normal S1, Normal S2, No M/G/R Abdomen: Bowel Sounds Present, Soft, Non Tender, mild distention liquid BM. : No dysuria. No renal angle tenderness. No suprapubic tenderness. Extremities: No edema, Capillary Refill Less than 3 Seconds Skin: No rashes, No breakdown Musculoskeletal: No Tenderness to Palpation of Joints or Extremities, loss of subcutaneous fat and decreased muscle bulk. Neurological: Cranial nerves II-XII grossly intact, DTR 2+/4. No acute focal neurological deficit. Psych/Mental Status: Flat affect Assessment & Plan Assessment/Plan (1) Weakness: (2) Hypotension: (3) Colitis: (4) Rectal bleed: PLAN: Plan 74-year-old with severe reid ulcerative colitis complicated by C. 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 He is on steroid therapy. I will start vancomycin, IV Flagyl and colestipol. I will also check ESR, CRP, lactate. Steroids can be continued. If he tolerates these new oral medicines then I may start him on azathioprine. I will add Ensure protein +4 times a day. He will need TPN as he has severe hypoalbuminemia and start him IV albumin. In the context of severe ulcerative colitis, low albumin levels are considered a significant marker of disease severity and can indicate a poor prognosis, often requiring further medical intervention;?in such cases,?albumin may be administered intravenously to help raise serum albumin levels and potentially improve patient outcomes, although the primary focus should be on managing the underlying inflammation causing the low albumin levels.? 07/30/2024-severe reid ulcerative colitis complicated by C. difficile colitis along with weight loss, protein calorie malnutrition, protein-losing enteropathy, hyperglobulinemia, bicytopenia. He also has a intermittent lactic acidosis likely secondary from increased inflammation in his colon. He has not suffered any side effects from the azathioprine and steroids at this time. I will titrate up his azathioprine. His goal would be between 1 mg a kilogram of body weight and 2.5 mg/kg body weight for his severe ulcerative colitis. Recommend stool for CMV. He will be getting TPN. I talk with his and gave her an update on how he is doing. Patient is still high risk for needing colectomy. 07/31/2024-his abdominal pain is definitely better. He still being maintained on TPN. We checked magnesium, phosphorus, CBC, CMP. Blood work is pending except for the CBC. He is showing signs of pancytopenia that is likely a side effect of his azathioprine. He was increased from 50 mg to 100 mg a day. We will DC the Imuran. This also can be a side effect of prednisone. I think we need to keep mild immunosuppression with prednisone. If it is counts continue to go down then he may need repeat blood transfusions and possibly Neupogen. We consulted general surgery. At this time he appears to be stable so he does not need surgical intervention. I appreciate the consultation. It was recommended to repeat his CT scan abdomen pelvis and we will order that now. It does concern me that his CRP is back up to 75 when it was down to 5. Guarded prognosis at this time. 08/01/2024-patient is eating all his food so we can DC TPN. His hemoglobin is back up to 8 after blood transfusion. I think it was mostly secondary to immunosuppression from azathioprine and prednisone combination. He will only be on prednisone at this time. Hopefully I will have his blood counts will improve with him still on prednisone. Otherwise this will have to be stopped. Guarded condition. 08/02/2024-TPN was stopped. He ate his entire breakfast this morning. He is still persistently pancytopenic. But his white count is improving. His platelet count seems to be stable but low. He has not shown signs of DIC. Vancomycin was stopped by primary team. I think he should stay on oral Vanco due to the fact that he was on steroids and he received Remicade and azathioprine. Hopefully his hemoglobin will stabilize he will not need any more blood transfusions. Patient still is against her evaluation for colectomy. I will continue to follow. Charges/Coding Visit Charges Inpatient E&M: 11865 [facility] Hosp L3
[2024-08-02 13:15] LABS: Bedside Glucose 340 mg/dL (74-106)
[2024-08-02] MEDS: Acetaminophen 325 MG Tablet 650 MG PO (14:15)
[2024-08-02] MEDS: Lactobacillis Acidophilus 1 CAP PO ×2 (14:19→21:33)
--- NOTE | 2024-08-02 15:54 | PN.HOSP_ITS ---
Reason for Visit Reason for Visit: Diagnoses Hypotension, unspecified (07/27/24) Ulcerative colitis, unspecified with rectal bleeding (07/27/24) Noninfective gastroenteritis and colitis, unspecified (07/27/24) Hemorrhage of anus and rectum (07/27/24) Weakness (07/27/24) Objective Data Objective Data Vital Signs: Vital Signs Temp Pulse Resp BP Pulse Ox O2 Del Method 97.8 F 70 16 118/59 L 95 Room Air 08/02/24 14:38 08/02/24 14:38 08/02/24 14:38 08/02/24 14:38 08/02/24 14:38 08/02/24 14:38 Oxygen Delivery Method Room Air Weight: 157 lb 6.561 oz Body Mass Index (BMI) 22.0 Intake & Output: Intake and Output for Last 24 Hours 07/31/24 08/01/24 08/02/24 23:59 23:59 23:59 Intake Total 4618.8 / 4618.8 1870 / 2170 810 / 810 Output Total 3025 / 3025 1475 / 1775 300 / 300 Balance 1593.8 / 1593.8 395 / 395 510 / 510 Medical Nutrition Assessment Dietitian: Malnutrition Criteria Met Start: 07/28/24 11:05 Freq: Status: Active Protocol: Document 07/28/24 15:20 SB (Rec: 07/28/24 15:20 SB [id number]) Nutrition Malnutrition Evidence of Malnutrition Exists Yes Evidenced By Suboptimal Energy Intake ( Severe),Weight Loss (Severe) Clinical Problem Acute Disease or Injury Related Malnutrition Etiology severe protein-calorie malnutrition in the context of acute illness related to altered GI function and inadequate oral intake Signs/Symptoms as evidenced by 2% unintentional weight loss x 1 week and PO meeting <75% of estimated nutrition needs x 2- 3 weeks. Status Active Problem Recommendation Dietitian Recommendations/Changes Continue 1800 calorie controlled/consistent carbohydrate diet. Continue 120ml glucerna shake 4x daily with medpass. Will order vanilla fortified pudding with dinner tray. Will monitor weight trends. Reviewed and approved by Marita Wu RD,LD. Lab / Micro Data 08/02/24 06:18 08/02/24 06:18 Labs: Laboratory Results - last 24 hr 08/01/24 16:43: POC Glucose 347 H 08/01/24 22:36: POC Glucose 328 H 08/02/24 05:41: POC Glucose 167 H 08/02/24 06:18: WBC 2.3 L, RBC 2.94 L, Hgb 8.5 L, Hct 26.4 L, MCV 89.8, MCH 28.9, MCHC 32.2, RDW Std Deviation 54.6 H, RDW Coeff of Janice 16.6 H, Plt Count 107 L, MPV 9.2, Immature Gran % (Auto) 1.300 H, Neut % (Auto) 57.3, Lymph % (Auto) 34.2, [place] % (Auto) 4.7, Eos % (Auto) 2.1, Baso % (Auto) 0.4, Absolute Neuts (auto) 1.3 L, Absolute Lymphs (auto) 0.80 L, Nucleated RBC % 0, Anisocytosis 1+, Sodium 135 L, Potassium 3.8, Chloride 106, Carbon Dioxide 25.0, Anion Gap 4 L, BUN 10, Creatinine 0.52 L, Estim Creat Clear Calc 83.05, Est GFR (MDRD) Af Amer 200, Est GFR (MDRD) Non-Af 166, BUN/Creatinine Ratio 19.2, G lucose 155 H, Calcium 7.9 L, Magnesium 2.1 08/02/24 11:38: POC Glucose 340 H Micro: Microbiology 07/28/24 05:32 Stool Enteric Bacteriology - Final 07/28/24 05:32 Stool C. difficile GDH Antigen & Toxins - Final 07/28/24 05:32 Stool Clostridioides difficile (PCR) - Final 07/27/24 15:15 Stool Stool Occult Blood (ARNALDO) - Final Occult Blood Positive Physical Exam Narrative Seen and examined. Patient stated he had 2 bowel movement yesterday along with some blood. Denies abdominal pain or abdominal distention. Patient able to eat his whole breakfast. Patient admitted with diarrhea and rectal bleeding that has been ongoing for 2 months. He was discharged on 07/23 and then admitted on 07/27. Drop in hemoglobin. PRBC ordered Physical exam General: Alert, Oriented x3, Cooperative. BMI 21.5 kg/m?, severe malnutrition HEENT: Atraumatic, PERRLA, EOMI, Normocephalic Oral: Oral mucosa is dry. No Gingival or Mucosal Lesions/ Ulcerations Neck: Supple, No JVD, Negative Carotid Bruits Chest wall/Lungs: Air entry diminished in bilateral lung bases. No crepitation/rhonchi Cardiovascular: Regular rate, Regular Rhythm, Normal S1, Normal S2, No M/G/R Abdomen: Bowel Sounds Present, Soft, Non Tender, mild distention. : No dysuria. No renal angle tenderness. No suprapubic tenderness. Extremities: No edema, Capillary Refill Less than 3 Seconds Skin: No rashes, No breakdown Musculoskeletal: No Tenderness to Palpation of Joints or Extremities, loss of subcutaneous fat and decreased muscle bulk. Neurological: Cranial nerves II-XII grossly intact, DTR 2+/4. No acute focal neurological deficit. Psych/Mental Status: Flat affect Assessment & Plan Assessment/Plan (1) Weakness: PLAN: Plan Patient is a 74-year-old gentleman with pancolitis ulcerative colitis is a readmission after discharge for the same diagnosis of diarrhea with hematochezia. Patient was feeling dizzy and lightheaded. 1. Near syncope symptoms due to low blood pressure: Patient is being admitted in PCU. He has chronically low BP from diarrhea. Supine BP 97/63, 99/59, 106/53 and on sitting it was 93/63 and heart rate went up from 83 to 94/min. He does not meet criteria for hypotension with patient on IV fluid. 07/29: Blood pressure is still on lower side but denies any dizziness. 07/30: Blood pressure on baseline. 07/31: BP on baseline. No fever. 08/01: Heart rate and blood pressure normal limit. No fever. 2. Chronic severe ulcerative colitis: Patient was discharged after almost 2 weeks of hospital stay. During that time patient was treated with IV Solu- Medrol and also Remicade was given after insurance approval. On high-dose prednisone. On mesalamine. Discussed with TNF inhibitor takes time about 6 weeks for action. 07/29: Seen by GI. 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 Continue oral vancomycin, IV Flagyl and colestipol. Based on the tolerance of new medication, recommended may consider azathioprine. 07/30: Patient had right arm PICC line. Water Plant Maintenance Mechanic consult to calculate TPN calories and is started. Mild improvement in diarrhea. 07/31: Patient has pancytopenia, WBC 1.6, H&H dropped 6.8/22% platelet count 100 9K. Patient was started on azathioprine yesterday and is discontinued. CT abdomen pelvis with contrast done. It shows thickening and inflammatory changes in the rectosigmoid colon consistent with colitis. Patient on IV Flagyl. P.o. vancomycin for C. difficile. General surgery was consulted. Inflammatory markers, CRP and ESR and lactate are elevated. Patient does not need urgent or emergent surgical intervention. Patient is not an ideal surgical candidate for multiple regions including malnutrition. If total colectomy is warranted patient will need transfer to tertiary care/colorectal surgery. 08/01: Frequency of loose bowel movement is better today. 08/02: Stool for C. difficile was positive for PCR and A and B antigen but toxin negative. Discussed with the GI. Since patient was on azathioprine and Remicade and therefore immunocompromised status with pancolitis with unhealthy colonic mucosa, high risk for invasive C. difficile therefore decided to continue oral vancomycin for 1 more week. Patient had 10 days of oral vancomycin in June and 4 days since admission this time. Discussed with the artist and repertoire manager and surgeon. 3. Chronic normocytic normochromic anemia from hematochezia: Hemoglobin is around 8 to 9 g back to baseline. 08/01: Hemoglobin is decreased to 6.8 yesterday and 1 unit of PRBC was ordered. Hemoglobin increased to 8 g%. Pancytopenia WBC 2.1K, ANC 1.3K and platelet count 104 K 08/02: Hemoglobin improved to 8.5%. 4. Hyponatremia from hypovolemia: Serum sodium 135. 08/01: Sodium is 137, potassium 4.2. 5. Dyslipidemia ?Patient is on statin therapy, continued at home dose 6. Diabetes mellitus type 2: Metformin was held due to lactic acidosis. Accu- Chek before meals and at bedtime with Humalog sliding scale coverage and hypoglycemia protocol. 7. DVT prophylaxis Anticoagulation contraindicated at this time. 8. Severe malnutrition: Patient progressively decreasing body weight. Due to pancolitis, inadequate oral intake and malabsorption from ulcerative colitis. Ensure 4 times daily Severe malnutrition as evidenced by: 5% unintentional weight loss in less than 1 month and PO meeting less than 50% estimated nutrition 08/01: During this hospital stay, patient had right arm PICC line and TPN was started. 08/02: Patient will complete the bag of TPN today. Charges/Coding Visit Charges Inpatient E&M: 57455 [facility] Hosp L2
[2024-08-02 17:16] LABS: Bedside Glucose 262 mg/dL (74-106)
[2024-08-02] MEDS: Insulin Lispro 100 UNIT/ML INSULN.PEN 15 UNIT SC (17:49)
[2024-08-02 17:56] LABS: Bedside Glucose 451 mg/dL (74-106)
[2024-08-02] MEDS: Atorvastatin Calcium 10 MG Tablet PO (21:33)
[2024-08-02] MEDS: Insulin Glargine-YFGN 100 UNIT/ML Pen 15 UNIT SC (21:51)
[2024-08-02 22:24] LABS: Bedside Glucose 355 mg/dL (74-106)
[2024-08-02] MEDS: 0.9% Saline Lock 10 ML Syringe IV (22:39)
[2024-08-03 03:05] VITALS: BP 108/56; PULSE 70; RESP 16; TEMP 36.6; O2SAT 93
[2024-08-03] MEDS: Baclofen 10 MG Tablet 5 MG PO ×3 (05:20→20:59)
[2024-08-03] MEDS: metroNIDAZOLE 500 MG/100 ML BAG 100 MG IV ×3 (05:20→21:04)
[2024-08-03] MEDS: Vancomycin 125 MG/5 ML Susp PO.SYRINGE PO ×4 (05:20→23:11)
[2024-08-03] MEDS: Lactobacillis Acidophilus 1 CAP PO ×3 (05:20→20:58)
[2024-08-03] MEDS: Dicyclomine 10 MG Capsule PO ×3 (05:27→17:20)
[2024-08-03 05:39] LABS: Absolute Lymphocyte Count 0.88 X10^3/uL (0.83-4.51); Absolute Neutrophil Count 1.7 X10^3/uL (2.0-7.7); Basophil# 0.04 X10^3/uL; Basophil% 1.4 % (0-1); Eosinophil# 0.04 X10^3/uL; Eosinophils% 1.4 % (0-5); Hematocrit 30.6 % (40-54); Hemoglobin 9.6 g/dL (13.0-16.5); Lymphocyte # 0.88 X10^3/ul (0.83-4.51); Lymphocyte % 30.9 % (19-41); Mean Corp Hgb Conc 31.4 g/dL (32-36); Mean Corpuscular Hgb 29.3 pg (27.0-32.0); Mean Corpuscular Volume 93.3 fL (80-94); Monocyte# 0.13 X10^3/uL; Monocyte% 4.6 % (0-10); NRBC Flagged by Analyzer 0.7 % (0-5); Neutrophil # 1.72 X10^3/uL (2.7-7.7); Neutrophil % 60.3 % (47-70); POSITIVE MORPHOLOGY YES; Platelet Count 114 K/mm3 (150-450); RBC Distribution Width CV 16.8 % (11.6-14.6); RBC Distribution Width SD 56.6 fl (35.1-43.9); Red Blood Count 3.28 M/mm3 (4.6-6.2); White Blood Count 2.9 K/mm3 (4.4-11.0)
[2024-08-03 05:40] LABS: Differential Indicated SCAN CRITERIA MET
[2024-08-03 05:53] LABS: Magnesium 2.1 mg/dL (1.6-2.6)
[2024-08-03 06:18] LABS: Differential Comment SCANNED
[2024-08-03 07:21] VITALS: BP 108/56; PULSE 70; RESP 16; TEMP 36.6; O2SAT 93
[2024-08-03 07:41] LABS: Bedside Glucose 87 mg/dL (74-106)
[2024-08-03 09:00] VITALS: BP 105/59; PULSE 83; RESP 18; TEMP 37.3; O2SAT 93
[2024-08-03] MEDS: Glucerna Shake 120 ML LIQUID PO ×4 (09:02→20:58)
[2024-08-03] MEDS: Pregabalin 75 MG Capsule 150 MG PO ×2 (09:03→21:00)
[2024-08-03] MEDS: MESALAMINE 400 MG CAPSULE.DR PO ×2 (09:03→20:59)
[2024-08-03] MEDS: predniSONE 20 MG Tablet 40 MG PO (09:03)
[2024-08-03] MEDS: Thiamine Hydrochloride 100 MG Tablet PO (09:03)
[2024-08-03] MEDS: Folic Acid 1 MG Tablet PO (09:03)
[2024-08-03] MEDS: Colestipol 1 GM TABLET PO ×2 (09:03→20:59)
[2024-08-03] MEDS: Pantoprazole Sodium 40 MG Tablet PO (09:03)
[2024-08-03] MEDS: Nystatin Powder 15gm Bottle 1 APPLIC TOPICAL ×2 (09:04→21:02)
[2024-08-03] MEDS: Albumin Human 25% (50 mL) 12.5 GM/50 ML IV.SOLN IV (09:19)
--- NOTE | 2024-08-03 09:58 | PCM.PN.SRG ---
Subjective Subjective Patient seen and examined during AM rounds. He notes that he is about the same today. He confirms that he is still tolerating a diet without issue. He reports that he had about 4 bloody bowel movements over the last 24 hours. He denies any abdominal pain. Objective Data Objective Data Vital Signs: Vital Signs Temp Pulse Resp BP Pulse Ox O2 Del Method 99.2 F H 83 18 105/59 L 93 Room Air 08/03/24 09:00 08/03/24 09:00 08/03/24 09:00 08/03/24 09:00 08/03/24 09:00 08/03/24 09:00 Oxygen Delivery Method Room Air Weight: 157 lb 6.561 oz Body Mass Index (BMI) 22.0 Intake & Output: Intake and Output for Last 24 Hours 08/01/24 08/02/24 08/03/24 23:59 23:59 23:59 Intake Total 1870 / 2170 3671.2 / 3671.2 340 / 340 Output Total 1475 / 1775 800 / 800 250 / 250 Balance 395 / 395 2871.2 / 2871.2 90 / 90 Medical Nutrition Assessment Dietitian: Malnutrition Criteria Met Start: 07/28/24 11:05 Freq: Status: Active Protocol: Document 07/28/24 15:20 SB (Rec: 07/28/24 15:20 SB [id number]) Nutrition Malnutrition Evidence of Malnutrition Exists Yes Evidenced By Suboptimal Energy Intake ( Severe),Weight Loss (Severe) Clinical Problem Acute Disease or Injury Related Malnutrition Etiology severe protein-calorie malnutrition in the context of acute illness related to altered GI function and inadequate oral intake Signs/Symptoms as evidenced by 2% unintentional weight loss x 1 week and PO meeting <75% of estimated nutrition needs x 2- 3 weeks. Status Active Problem Recommendation Dietitian Recommendations/Changes Continue 1800 calorie controlled/consistent carbohydrate diet. Continue 120ml glucerna shake 4x daily with medpass. Will order vanilla fortified pudding with dinner tray. Will monitor weight trends. Reviewed and approved by Marita Wu RD,LD. Lab / Micro Data 08/03/24 05:34 08/02/24 06:18 Labs: Laboratory Results - last 24 hr 08/01/24 11:28: POC Glucose 262 H 08/02/24 11:38: POC Glucose 340 H 08/02/24 17:02: POC Glucose 451 H* 08/02/24 21:50: POC Glucose 355 H 08/03/24 05:34: WBC 2.9 L, RBC 3.28 L, Hgb 9.6 L, Hct 30.6 L, MCV 93.3, MCH 29.3, MCHC 31.4 L, RDW Std Deviation 56.6 H, RDW Coeff of Janice 16.8 H, Plt Count 114 L, MPV 9.0, Immature Gran % (Auto) 1.400 H, Neut % (Auto) 60.3, Lymph % (Auto) 30.9, [place] % (Auto) 4.6, Eos % (Auto) 1.4, Baso % (Auto) 1.4 H, Absolute Neuts (auto) 1.7 L, Absolute Lymphs (auto) 0.88, Nucleated RBC % 0.7, Differential Comment SCANNED, Magnesium 2.1 08/03/24 07:14: POC Glucose 87 Micro: Microbiology 07/28/24 05:32 Stool Enteric Bacteriology - Final 07/28/24 05:32 Stool C. difficile GDH Antigen & Toxins - Final 07/28/24 05:32 Stool Clostridioides difficile (PCR) - Final 07/27/24 15:15 Stool Stool Occult Blood (ARNALDO) - Final Occult Blood Positive Physical Exam Const oriented x3 and no apparent distress Resp normal respiratory effort GI GI Narrative: Nondistended, soft, nontender to palpation x 4 quadrants Assessment & Plan Assessment/Plan (1) Exacerbation of ulcerative colitis with rectal bleeding: PLAN: Plan Patient is a 74-year-old male with history of ulcerative colitis currently in flare and was recently treated for C. difficile colitis. Once again, patient describes ongoing bloody bowel movements, however, his hemoglobin appears further improved. His abdominal exam remains benign. Gastroenterology reinstated patient's p.o. vancomycin given history of recent C. difficile and having to use both Biologics and steroids for his ulcerative colitis flare. I discussed with patient what was involved with a total abdominal colectomy as he declared this has not been described previously. I shared that this would seem to be a very big recovery to undertake for an emergent operation but it could be considered on more of an elective basis if he was able to recoup after his present inpatient stay. I suggested there may be a role for obtaining an outpatient colorectal surgery consultation so he could better understand this option. When we discussed that this could potentially eliminate his experience of further admissions for colitis Mr. Drake expresses some interest. For now with patient's further clinical improvements find no cause for emergent surgical intervention and agree with efforts to try to get him to a rehab situation. Edin Louie MD General Surgery Endocrine Surgery Pager: [facility] [address] [place] [address], [address] [place] [id number] Office: [phone] Charges/Coding Visit Charges Inpatient E&M: 25763 Subs Hosp L2
[2024-08-03 12:08] LABS: Bedside Glucose 254 mg/dL (74-106)
--- NOTE | 2024-08-03 12:29 | PN.HOSP_ITS ---
Reason for Visit Reason for Visit: Diagnoses Hypotension, unspecified (07/27/24) Ulcerative colitis, unspecified with rectal bleeding (07/27/24) Noninfective gastroenteritis and colitis, unspecified (07/27/24) Hemorrhage of anus and rectum (07/27/24) Weakness (07/27/24) Objective Data Objective Data Vital Signs: Vital Signs Temp Pulse Resp BP Pulse Ox O2 Del Method 99.2 F H 83 18 105/59 L 93 Room Air 08/03/24 09:00 08/03/24 09:00 08/03/24 09:00 08/03/24 09:00 08/03/24 09:00 08/03/24 09:00 Oxygen Delivery Method Room Air Weight: 157 lb 6.561 oz Body Mass Index (BMI) 22.0 Intake & Output: Intake and Output for Last 24 Hours 08/01/24 08/02/24 08/03/24 23:59 23:59 23:59 Intake Total 1870 / 2170 3671.2 / 3671.2 630 / 630 Output Total 1475 / 1775 800 / 800 250 / 250 Balance 395 / 395 2871.2 / 2871.2 380 / 380 Medical Nutrition Assessment Dietitian: Malnutrition Criteria Met Start: 07/28/24 11:05 Freq: Status: Active Protocol: Document 07/28/24 15:20 SB (Rec: 07/28/24 15:20 SB [id number]) Nutrition Malnutrition Evidence of Malnutrition Exists Yes Evidenced By Suboptimal Energy Intake ( Severe),Weight Loss (Severe) Clinical Problem Acute Disease or Injury Related Malnutrition Etiology severe protein-calorie malnutrition in the context of acute illness related to altered GI function and inadequate oral intake Signs/Symptoms as evidenced by 2% unintentional weight loss x 1 week and PO meeting <75% of estimated nutrition needs x 2- 3 weeks. Status Active Problem Recommendation Dietitian Recommendations/Changes Continue 1800 calorie controlled/consistent carbohydrate diet. Continue 120ml glucerna shake 4x daily with medpass. Will order vanilla fortified pudding with dinner tray. Will monitor weight trends. Reviewed and approved by Marita Wu RD,LD. Lab / Micro Data 08/03/24 05:34 08/02/24 06:18 Labs: Laboratory Results - last 24 hr 08/01/24 11:28: POC Glucose 262 H 08/02/24 11:38: POC Glucose 340 H 08/02/24 17:02: POC Glucose 451 H* 08/02/24 21:50: POC Glucose 355 H 08/03/24 05:34: WBC 2.9 L, RBC 3.28 L, Hgb 9.6 L, Hct 30.6 L, MCV 93.3, MCH 29.3, MCHC 31.4 L, RDW Std Deviation 56.6 H, RDW Coeff of Janice 16.8 H, Plt Count 114 L, MPV 9.0, Immature Gran % (Auto) 1.400 H, Neut % (Auto) 60.3, Lymph % (Auto) 30.9, [place] % (Auto) 4.6, Eos % (Auto) 1.4, Baso % (Auto) 1.4 H, Absolute Neuts (auto) 1.7 L, Absolute Lymphs (auto) 0.88, Nucleated RBC % 0.7, Differential Comment SCANNED, Magnesium 2.1 08/03/24 07:14: POC Glucose 87 08/03/24 11:47: POC Glucose 254 H Micro: Microbiology 07/28/24 05:32 Stool Enteric Bacteriology - Final 07/28/24 05:32 Stool C. difficile GDH Antigen & Toxins - Final 07/28/24 05:32 Stool Clostridioides difficile (PCR) - Final 07/27/24 15:15 Stool Stool Occult Blood (ARNALDO) - Final Occult Blood Positive Physical Exam Narrative Seen and examined. He states he had 4 bloody bowel movement last 24 hours. It was bright red. No acute change. Hemoglobin 9.2. Denies abdominal pain or abdominal distention. Patient ate all his meals Patient admitted with diarrhea and rectal bleeding that has been ongoing for 2 months. He was discharged on 07/23 and then admitted on 07/27. Physical exam General: Alert, Oriented x3, Cooperative. BMI 21.5 kg/m?, severe malnutrition HEENT: Atraumatic, PERRLA, EOMI, Normocephalic Oral: Oral mucosa is dry. No Gingival or Mucosal Lesions/ Ulcerations Neck: Supple, No JVD, Negative Carotid Bruits Chest wall/Lungs: Air entry diminished in bilateral lung bases. No crepitation/rhonchi Cardiovascular: Regular rate, Regular Rhythm, Normal S1, Normal S2, No M/G/R Abdomen: Bowel Sounds Present, Soft, Non Tender, mild distention. : No dysuria. No renal angle tenderness. No suprapubic tenderness. Extremities: No edema, Capillary Refill Less than 3 Seconds Skin: No rashes, No breakdown Musculoskeletal: No Tenderness to Palpation of Joints or Extremities, loss of subcutaneous fat and decreased muscle bulk. Neurological: Cranial nerves II-XII grossly intact, DTR 2+/4. No acute focal neurological deficit. Psych/Mental Status: Flat affect Assessment & Plan Assessment/Plan (1) Weakness: PLAN: Plan Patient is a 74-year-old gentleman with pancolitis ulcerative colitis is a readmission after discharge for the same diagnosis of diarrhea with hematochezia. Patient was feeling dizzy and lightheaded. 1. Near syncope symptoms due to low blood pressure: Patient is being admitted in PCU. He has chronically low BP from diarrhea. Supine BP 97/63, 99/59, 106/53 and on sitting it was 93/63 and heart rate went up from 83 to 94/min. He does not meet criteria for hypotension with patient on IV fluid. 07/29: Blood pressure is still on lower side but denies any dizziness. 07/30: Blood pressure on baseline. 07/31: BP on baseline. No fever. 08/01: Heart rate and blood pressure normal limit. No fever. 2. Chronic severe ulcerative colitis: Patient was discharged after almost 2 weeks of hospital stay. During that time patient was treated with IV Solu- Medrol and also Remicade was given after insurance approval. On high-dose prednisone. On mesalamine. Discussed with TNF inhibitor takes time about 6 weeks for action. 07/29: Seen by GI. 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 Continue oral vancomycin, IV Flagyl and colestipol. Based on the tolerance of new medication, recommended may consider azathioprine. 07/30: Patient had right arm PICC line. Lab Pack Chemist consult to calculate TPN calories and is started. Mild improvement in diarrhea. 07/31: Patient has pancytopenia, WBC 1.6, H&H dropped 6.8/22% platelet count 100 9K. Patient was started on azathioprine yesterday and is discontinued. CT abdomen pelvis with contrast done. It shows thickening and inflammatory changes in the rectosigmoid colon consistent with colitis. Patient on IV Flagyl. P.o. vancomycin for C. difficile. General surgery was consulted. Inflammatory markers, CRP and ESR and lactate are elevated. Patient does not need urgent or emergent surgical intervention. Patient is not an ideal surgical candidate for multiple regions including malnutrition. If total colectomy is warranted patient will need transfer to tertiary care/colorectal surgery. 08/01: Frequency of loose bowel movement is better today. 08/02: Stool for C. difficile was positive for PCR and A and B antigen but toxin negative. Discussed with the GI. Since patient was on azathioprine and Remicade and therefore immunocompromised status with pancolitis with unhealthy colonic mucosa, high risk for invasive C. difficile therefore decided to continue oral vancomycin for 1 more week. Patient had 10 days of oral vancomycin in June and 4 days since admission this time. Discussed with the senior landscape architect and surgeon. 08/03: Patient is still having bloody bowel movement 4 times a day. Hemoglobin 9.2 after PRBC transfusion. Continue oral vancomycin. 3. Chronic normocytic normochromic anemia from hematochezia: Hemoglobin is around 8 to 9 g back to baseline. 08/01: Hemoglobin is decreased to 6.8 yesterday and 1 unit of PRBC was ordered. Hemoglobin increased to 8 g%. Pancytopenia WBC 2.1K, ANC 1.3K and platelet count 104 K 08/02: Hemoglobin improved to 8.5%. 4. Hyponatremia from hypovolemia: Serum sodium 135. 08/01: Sodium is 137, potassium 4.2. 5. Dyslipidemia ?Patient is on statin therapy, continued at home dose 6. Diabetes mellitus type 2: Metformin was held due to lactic acidosis. Accu- Chek before meals and at bedtime with Humalog sliding scale coverage and hypoglycemia protocol. 7. DVT prophylaxis Anticoagulation contraindicated at this time. 8. Severe malnutrition: Patient progressively decreasing body weight. Due to pancolitis, inadequate oral intake and malabsorption from ulcerative colitis. Ensure 4 times daily Severe malnutrition as evidenced by: 5% unintentional weight loss in less than 1 month and PO meeting less than 50% estimated nutrition 08/01: During this hospital stay, patient had right arm PICC line and TPN was started. 08/02: Patient will complete the bag of TPN today. 08/03: TPN was completed yesterday. Charges/Coding Visit Charges Inpatient E&M: 45519 Subs Hosp L2
[2024-08-03] MEDS: Insulin Lispro 100 UNIT/ML INSULN.PEN SC ×3 (13:28→21:01)
[2024-08-03] MEDS: Insulin Lispro 100 UNIT/ML INSULN.PEN 8 UNIT SC ×2 (13:28→17:21)
[2024-08-03 14:51] VITALS: BP 108/56; PULSE 70; RESP 16; TEMP 36.6; O2SAT 93
[2024-08-03 15:00] VITALS: BP 94/50; PULSE 80; RESP 18; TEMP 36.5; O2SAT 92
[2024-08-03] MEDS: Insulin Glargine-YFGN 100 UNIT/ML Pen 12 UNIT SC (17:23)
[2024-08-03 17:53] LABS: Bedside Glucose 265 mg/dL (74-106)
[2024-08-03 20:55] VITALS: BP 106/54; PULSE 83; RESP 18; TEMP 35.8; O2SAT 93
[2024-08-03] MEDS: Atorvastatin Calcium 10 MG Tablet PO (20:59)
[2024-08-04 01:21] LABS: Bedside Glucose 268 mg/dL (74-106)
[2024-08-04 02:55] VITALS: BP 104/57; PULSE 76; RESP 18; TEMP 36.3; O2SAT 93
[2024-08-04] MEDS: metroNIDAZOLE 500 MG/100 ML BAG 100 MG IV ×3 (06:09→21:34)
[2024-08-04] MEDS: Baclofen 10 MG Tablet 5 MG PO ×3 (06:13→21:52)
[2024-08-04] MEDS: Vancomycin 125 MG/5 ML Susp PO.SYRINGE PO ×4 (06:14→23:46)
[2024-08-04] MEDS: Lactobacillis Acidophilus 1 CAP PO ×3 (06:14→21:35)
[2024-08-04] MEDS: Dicyclomine 10 MG Capsule PO ×3 (06:14→16:04)
[2024-08-04 07:36] LABS: Absolute Lymphocyte Count 0.93 X10^3/uL (0.83-4.51); Absolute Neutrophil Count 1.8 X10^3/uL (2.0-7.7); Basophil# 0.02 X10^3/uL; Basophil% 0.7 % (0-1); Eosinophil# 0.07 X10^3/uL; Eosinophils% 2.3 % (0-5); Hematocrit 28.2 % (40-54); Hemoglobin 9.1 g/dL (13.0-16.5); Lymphocyte # 0.93 X10^3/ul (0.83-4.51); Lymphocyte % 31.1 % (19-41); Mean Corp Hgb Conc 32.3 g/dL (32-36); Mean Corpuscular Hgb 29.4 pg (27.0-32.0); Mean Platelet Vol. 9.6 fl (6.2-12.0); Monocyte# 0.12 X10^3/uL; NRBC Flagged by Analyzer 0.7 % (0-5); Neutrophil # 1.78 X10^3/uL (2.7-7.7); Neutrophil % 59.6 % (47-70); POSITIVE MORPHOLOGY YES; Platelet Count 119 K/mm3 (150-450); RBC Distribution Width CV 17.2 % (11.6-14.6); RBC Distribution Width SD 56.9 fl (35.1-43.9)
[2024-08-04 07:43] LABS: Differential Indicated SCAN CRITERIA MET
[2024-08-04 07:52] LABS: Anion Gap 5 (5-15); BUN 10 mg/dL (7-18); BUN/Creat Ratio 17.7 RATIO (10-20); Calcium,Total 8.2 mg/dL (8.5-10.1); Chloride 105 mmol/L (98-107); Creatinine, Serum 0.57 mg/dL (0.70-1.30); EST Glomerular Filtration Rate 150 mL/min (>60); Est Glom Filt Rate - Afr Amer 182 mL/min (>60); Estimated Creatinine Clearance 83.05 ml/min; Glucose 100 mg/dL (74-106); Sodium Level 136 mmol/L (136-145)
[2024-08-04 08:11] VITALS: BMI 21.3
[2024-08-04 08:12] VITALS: BP 123/76; PULSE 77; RESP 18; TEMP 36.3; O2SAT 92
[2024-08-04 08:15] LABS: Atypical Lymphocyte 1+ %; Differential Comment SCANNED; Polychromasia 1+
[2024-08-04] MEDS: Colestipol 1 GM TABLET PO ×2 (08:16→21:52)
[2024-08-04] MEDS: Glucerna Shake 120 ML LIQUID PO ×3 (08:16→16:58)
[2024-08-04] MEDS: MESALAMINE 400 MG CAPSULE.DR PO ×2 (08:16→21:52)
[2024-08-04] MEDS: Nystatin Powder 15gm Bottle 1 APPLIC TOPICAL ×2 (08:17→21:36)
--- NOTE | 2024-08-04 08:19 | PCM.PN.SRG ---
Subjective Subjective Patient seen and examined during AM rounds. Is found sitting upright in bed. He states that he is largely the same and claims around 5 bowel movements since yesterday that were bloody in character. He also confirms that he continues to tolerate a diet. He denies any abdominal pain. Objective Data Objective Data Vital Signs: Vital Signs Temp Pulse Resp BP Pulse Ox O2 Del Method 97.4 F L 77 18 123/76 H 92 Room Air 08/04/24 08:12 08/04/24 08:12 08/04/24 08:12 08/04/24 08:12 08/04/24 08:12 08/04/24 08:13 Oxygen Delivery Method Room Air Weight: 152 lb 9.6 oz Body Mass Index (BMI) 21.3 Intake & Output: Intake and Output for Last 24 Hours 08/02/24 08/03/24 08/04/24 23:59 23:59 23:59 Intake Total 3671.2 / 3671.2 1190 / 1190 100 / 100 Output Total 800 / 800 250 / 250 350 / 350 Balance 2871.2 / 2871.2 940 / 940 -250 / -250 Medical Nutrition Assessment Dietitian: Malnutrition Criteria Met Start: 07/28/24 11:05 Freq: Status: Active Protocol: Document 07/28/24 15:20 SB (Rec: 07/28/24 15:20 SB [id number]) Nutrition Malnutrition Evidence of Malnutrition Exists Yes Evidenced By Suboptimal Energy Intake ( Severe),Weight Loss (Severe) Clinical Problem Acute Disease or Injury Related Malnutrition Etiology severe protein-calorie malnutrition in the context of acute illness related to altered GI function and inadequate oral intake Signs/Symptoms as evidenced by 2% unintentional weight loss x 1 week and PO meeting <75% of estimated nutrition needs x 2- 3 weeks. Status Active Problem Recommendation Dietitian Recommendations/Changes Continue 1800 calorie controlled/consistent carbohydrate diet. Continue 120ml glucerna shake 4x daily with medpass. Will order vanilla fortified pudding with dinner tray. Will monitor weight trends. Reviewed and approved by Marita Wu RD,JULIET. Lab / Micro Data 08/04/24 07:13 08/04/24 07:13 Labs: Laboratory Results - last 24 hr 08/03/24 11:47: POC Glucose 254 H 08/03/24 17:18: POC Glucose 265 H 08/03/24 20:56: POC Glucose 268 H 08/04/24 07:13: WBC 3.0 L, RBC 3.10 L, Hgb 9.1 L, Hct 28.2 L, MCV 91.0, MCH 29.4, MCHC 32.3, RDW Std Deviation 56.9 H, RDW Coeff of Janice 17.2 H, Plt Count 119 L, MPV 9.6, Immature Gran % (Auto) 2.300 H, Neut % (Auto) 59.6, Lymph % (Auto) 31.1, [place] % (Auto) 4.0, Eos % (Auto) 2.3, Baso % (Auto) 0.7, Absolute Neuts (auto) 1.8 L, Absolute Lymphs (auto) 0.93, Nucleated RBC % 0.7, Differential Comment SCANNED, Atypical Lymphocytes 1+, Polychromasia 1+, Sodium 136, Potassium 4.0, Chloride 105, Carbon Dioxide 27.0, Anion Gap 5, BUN 10, Creatinine 0.57 L, Estim Creat Clear Calc 83.05, Est GFR (MDRD) Af Amer 182, Est GFR (MDRD) Non-Af 150, BUN/Creatinine Ratio 17.7, Glucose 100, Calcium 8.2 L Micro: Microbiology 07/28/24 05:32 Stool Enteric Bacteriology - Final 07/28/24 05:32 Stool C. difficile GDH Antigen & Toxins - Final 07/28/24 05:32 Stool Clostridioides difficile (PCR) - Final 07/27/24 15:15 Stool Stool Occult Blood (ARNALDO) - Final Occult Blood Positive Physical Exam Const oriented x3 and no apparent distress Resp normal respiratory effort GI GI Narrative: Soft and nondistended. Nontender to palpation x 4 quadrants Assessment & Plan Assessment/Plan (1) Exacerbation of ulcerative colitis with rectal bleeding: PLAN: Plan Patient is a 74-year-old male with history of ulcerative colitis currently in flare and was recently treated for C. difficile colitis. Continued hematochezia slight downtrend of hemoglobin. His abdominal exam remains benign. White blood cell count is slightly elevated with some changes in the differential as well. If patient's labs and clinical status remained stable through tomorrow I believe he could be considered as appropriate for transition to rehab/nursing facility as previously planned. Patient does state that he would be willing to meet with colorectal surgery on an outpatient basis of it could be arranged. I do see this as reasonable even if he is able to resolve his current issue conservatively as his ulcerative colitis remains a concern and gastroenterology believes him to be advanced in this disease process. Anticipate return of Dr. Murillo tomorrow. Edin Louie MD General Surgery Endocrine Surgery Pager: [facility] [address] [place] [address], [address] [place] [id number] Office: [phone] Charges/Coding Visit Charges Inpatient E&M: 29712 Subs Hosp L2
[2024-08-04] MEDS: Thiamine Hydrochloride 100 MG Tablet PO (08:20)
[2024-08-04] MEDS: Pregabalin 75 MG Capsule 150 MG PO ×2 (08:20→21:34)
[2024-08-04] MEDS: predniSONE 20 MG Tablet 40 MG PO (08:21)
[2024-08-04] MEDS: Pantoprazole Sodium 40 MG Tablet PO (08:21)
[2024-08-04] MEDS: Folic Acid 1 MG Tablet PO (08:21)
[2024-08-04 08:35] LABS: Bedside Glucose 92 mg/dL (74-106)
--- NOTE | 2024-08-04 10:25 | CASEMGMT ---
[facility] can accept pt without TPN. Updates sent and they will submit for precert today. Kaity Ramirez DC Planning Asst.
--- NOTE | 2024-08-04 11:02 | PN.HOSP_ITS ---
Reason for Visit Reason for Visit: Diagnoses Hypotension, unspecified (07/27/24) Ulcerative colitis, unspecified with rectal bleeding (07/27/24) Noninfective gastroenteritis and colitis, unspecified (07/27/24) Hemorrhage of anus and rectum (07/27/24) Weakness (07/27/24) Objective Data Objective Data Vital Signs: Vital Signs Temp Pulse Resp BP Pulse Ox O2 Del Method 97.4 F L 77 18 123/76 H 92 Room Air 08/04/24 08:12 08/04/24 08:12 08/04/24 08:12 08/04/24 08:12 08/04/24 08:12 08/04/24 08:13 Oxygen Delivery Method Room Air Weight: 152 lb 9.6 oz Body Mass Index (BMI) 21.3 Intake & Output: Intake and Output for Last 24 Hours 08/02/24 08/03/24 08/04/24 23:59 23:59 23:59 Intake Total 3671.2 / 3671.2 1190 / 1190 100 / 100 Output Total 800 / 800 250 / 250 350 / 350 Balance 2871.2 / 2871.2 940 / 940 -250 / -250 Medical Nutrition Assessment Dietitian: Malnutrition Criteria Met Start: 07/28/24 11:05 Freq: Status: Active Protocol: Document 07/28/24 15:20 SB (Rec: 07/28/24 15:20 SB [id number]) Nutrition Malnutrition Evidence of Malnutrition Exists Yes Evidenced By Suboptimal Energy Intake ( Severe),Weight Loss (Severe) Clinical Problem Acute Disease or Injury Related Malnutrition Etiology severe protein-calorie malnutrition in the context of acute illness related to altered GI function and inadequate oral intake Signs/Symptoms as evidenced by 2% unintentional weight loss x 1 week and PO meeting <75% of estimated nutrition needs x 2- 3 weeks. Status Active Problem Recommendation Dietitian Recommendations/Changes Continue 1800 calorie controlled/consistent carbohydrate diet. Continue 120ml glucerna shake 4x daily with medpass. Will order vanilla fortified pudding with dinner tray. Will monitor weight trends. Reviewed and approved by Marita Wu RD,LD. Lab / Micro Data 08/04/24 07:13 08/04/24 07:13 Labs: Laboratory Results - last 24 hr 08/03/24 11:47: POC Glucose 254 H 08/03/24 17:18: POC Glucose 265 H 08/03/24 20:56: POC Glucose 268 H 08/04/24 07:13: WBC 3.0 L, RBC 3.10 L, Hgb 9.1 L, Hct 28.2 L, MCV 91.0, MCH 29.4, MCHC 32.3, RDW Std Deviation 56.9 H, RDW Coeff of Janice 17.2 H, Plt Count 119 L, MPV 9.6, Immature Gran % (Auto) 2.300 H, Neut % (Auto) 59.6, Lymph % (Auto) 31.1, [place] % (Auto) 4.0, Eos % (Auto) 2.3, Baso % (Auto) 0.7, Absolute Neuts (auto) 1.8 L, Absolute Lymphs (auto) 0.93, Nucleated RBC % 0.7, Differential Comment SCANNED, Atypical Lymphocytes 1+, Polychromasia 1+, Sodium 136, Potassium 4.0, Chloride 105, Carbon Dioxide 27.0, Anion Gap 5, BUN 10, C reatinine 0.57 L, Estim Creat Clear Calc 83.05, Est GFR (MDRD) Af Amer 182, Est GFR (MDRD) Non-Af 150, BUN/Creatinine Ratio 17.7, Glucose 100, Calcium 8.2 L 08/04/24 08:01: POC Glucose 92 Micro: Microbiology 07/28/24 05:32 Stool Enteric Bacteriology - Final 07/28/24 05:32 Stool C. difficile GDH Antigen & Toxins - Final 07/28/24 05:32 Stool Clostridioides difficile (PCR) - Final 07/27/24 15:15 Stool Stool Occult Blood (ARNALDO) - Final Occult Blood Positive Physical Exam Narrative Seen and examined. No acute change. He he said he had 4-6 bowel movement in last 24 hours. Still bloody. Hemoglobin maintained 9.1 slight drop from 9.6. Denies abdominal pain or abdominal distention. Patient ate all his meals Patient admitted with diarrhea and rectal bleeding that has been ongoing for 2 months. He was discharged on 07/23 and then admitted on 07/27. Physical exam General: Alert, Oriented x3, Cooperative. BMI 21.5 kg/m?, severe malnutrition HEENT: Atraumatic, PERRLA, EOMI, Normocephalic Oral: Oral mucosa is dry. No Gingival or Mucosal Lesions/ Ulcerations Neck: Supple, No JVD, Negative Carotid Bruits Chest wall/Lungs: Air entry diminished in bilateral lung bases. No crepitation/rhonchi Cardiovascular: Regular rate, Regular Rhythm, Normal S1, Normal S2, No M/G/R Abdomen: Bowel Sounds Present, Soft, Non Tender, mild distention. : No dysuria. No renal angle tenderness. No suprapubic tenderness. Extremities: No edema, Capillary Refill Less than 3 Seconds Skin: No rashes, No breakdown Musculoskeletal: No Tenderness to Palpation of Joints or Extremities, loss of subcutaneous fat and decreased muscle bulk. Neurological: Cranial nerves II-XII grossly intact, DTR 2+/4. No acute focal neurological deficit. Psych/Mental Status: Flat affect Assessment & Plan Assessment/Plan (1) Weakness: PLAN: Plan Patient is a 74-year-old gentleman with pancolitis ulcerative colitis is a readmission after discharge for the same diagnosis of diarrhea with hematochezia. Patient was feeling dizzy and lightheaded. 1. Near syncope symptoms due to low blood pressure: Patient is being admitted in PCU. He has chronically low BP from diarrhea. Supine BP 97/63, 99/59, 106/53 and on sitting it was 93/63 and heart rate went up from 83 to 94/min. He does not meet criteria for hypotension with patient on IV fluid. 07/29: Blood pressure is still on lower side but denies any dizziness. 07/30: Blood pressure on baseline. 07/31: BP on baseline. No fever. 08/01: Heart rate and blood pressure normal limit. No fever. 2. Chronic severe ulcerative colitis: Patient was discharged after almost 2 weeks of hospital stay. During that time patient was treated with IV Solu- Medrol and also Remicade was given after insurance approval. On high-dose prednisone. On mesalamine. Discussed with TNF inhibitor takes time about 6 weeks for action. 07/29: Seen by GI. 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 Continue oral vancomycin, IV Flagyl and colestipol. Based on the tolerance of new medication, recommended may consider azathioprine. 07/30: Patient had right arm PICC line. Log Snaker consult to calculate TPN calories and is started. Mild improvement in diarrhea. 07/31: Patient has pancytopenia, WBC 1.6, H&H dropped 6.8/22% platelet count 100 9K. Patient was started on azathioprine yesterday and is discontinued. CT abdomen pelvis with contrast done. It shows thickening and inflammatory changes in the rectosigmoid colon consistent with colitis. Patient on IV Flagyl. P.o. vancomycin for C. difficile. General surgery was consulted. Inflammatory markers, CRP and ESR and lactate are elevated. Patient does not need urgent or emergent surgical intervention. Patient is not an ideal surgical candidate for multiple regions including malnutrition. If total colectomy is warranted patient will need transfer to tertiary care/colorectal surgery. 08/01: Frequency of loose bowel movement is better today. 08/02: Stool for C. difficile was positive for PCR and A and B antigen but toxin negative. Discussed with the GI. Since patient was on azathioprine and Remicade and therefore immunocompromised status with pancolitis with unhealthy colonic mucosa, high risk for invasive C. difficile therefore decided to continue oral vancomycin for 1 more week. Patient had 10 days of oral vancomycin in June and 4 days since admission this time. Discussed with the government property inspector and surgeon. 08/03: Patient is still having bloody bowel movement 4 times a day. Hemoglobin 9.2 after PRBC transfusion. Continue oral vancomycin. 08/04: Still having bloody bowel movements. Hemoglobin 9.1 no significant acute drop to require PRBC transfusion 3. Chronic normocytic normochromic anemia from hematochezia: Hemoglobin is around 8 to 9 g back to baseline. 08/01: Hemoglobin is decreased to 6.8 yesterday and 1 unit of PRBC was ordered. Hemoglobin increased to 8 g%. Pancytopenia WBC 2.1K, ANC 1.3K and platelet count 104 K 08/02: Hemoglobin improved to 8.5%. 4. Hyponatremia from hypovolemia: Serum sodium 135. 08/01: Sodium is 137, potassium 4.2. 5. Dyslipidemia ?Patient is on statin therapy, continued at home dose 6. Diabetes mellitus type 2: Metformin was held due to lactic acidosis. Accu- Chek before meals and at bedtime with Humalog sliding scale coverage and hypoglycemia protocol. 7. DVT prophylaxis Anticoagulation contraindicated at this time. 8. Severe malnutrition: Patient progressively decreasing body weight. Due to pancolitis, inadequate oral intake and malabsorption from ulcerative colitis. Ensure 4 times daily Severe malnutrition as evidenced by: 5% unintentional weight loss in less than 1 month and PO meeting less than 50% estimated nutrition 08/01: During this hospital stay, patient had right arm PICC line and TPN was started. 08/02: Patient will complete the bag of TPN today. 08/03: TPN was completed yesterday. Charges/Coding Visit Charges Inpatient E&M: 75012 Subs Hosp L2
[2024-08-04] MEDS: Insulin Lispro 100 UNIT/ML INSULN.PEN 8 UNIT SC ×2 (11:33→16:05)
[2024-08-04] MEDS: Insulin Lispro 100 UNIT/ML INSULN.PEN SC ×3 (11:34→21:40)
[2024-08-04 11:57] LABS: Bedside Glucose 251 mg/dL (74-106)
[2024-08-04 16:00] VITALS: BP 101/66; PULSE 77; RESP 18; TEMP 36.3; O2SAT 95
[2024-08-04] MEDS: Insulin Glargine-YFGN 100 UNIT/ML Pen 12 UNIT SC (16:05)
--- NOTE | 2024-08-04 16:06 | CASEMGMT ---
Amarilis has obtained auth to admit. SW updated. Kaity Ramirez DC Planning Asst.
[2024-08-04 16:25] LABS: Bedside Glucose 290 mg/dL (74-106)
--- NOTE | 2024-08-04 16:31 | PN.GI_ITS ---
Subjective Subjective Patient states that he feels about the same. He still having multiple episodes of rectal bleeding. He is afebrile. He does get cramping when he needs to have a bowel movement. He denies any chest pain or shortness of breath. Objective Data Objective Data Vital Signs: Vital Signs Temp Pulse Resp BP Pulse Ox O2 Del Method 97.4 F L 77 18 123/76 H 92 Room Air 08/04/24 08:12 08/04/24 08:12 08/04/24 08:12 08/04/24 08:12 08/04/24 08:12 08/04/24 13:43 Oxygen Delivery Method Room Air Weight: 152 lb 9.6 oz Body Mass Index (BMI) 21.3 Intake & Output: Intake and Output for Last 24 Hours 08/02/24 08/03/24 08/04/24 23:59 23:59 23:59 Intake Total 3671.2 / 3671.2 1190 / 1190 600 / 600 Output Total 800 / 800 250 / 250 750 / 750 Balance 2871.2 / 2871.2 940 / 940 -150 / -150 Medical Nutrition Assessment Dietitian: Malnutrition Criteria Met Start: 07/28/24 11:05 Freq: Status: Active Protocol: Document 07/28/24 15:20 SB (Rec: 07/28/24 15:20 SB [id number]) Nutrition Malnutrition Evidence of Malnutrition Exists Yes Evidenced By Suboptimal Energy Intake ( Severe),Weight Loss (Severe) Clinical Problem Acute Disease or Injury Related Malnutrition Etiology severe protein-calorie malnutrition in the context of acute illness related to altered GI function and inadequate oral intake Signs/Symptoms as evidenced by 2% unintentional weight loss x 1 week and PO meeting <75% of estimated nutrition needs x 2- 3 weeks. Status Active Problem Recommendation Dietitian Recommendations/Changes Continue 1800 calorie controlled/consistent carbohydrate diet. Continue 120ml glucerna shake 4x daily with medpass. Will order vanilla fortified pudding with dinner tray. Will monitor weight trends. Reviewed and approved by Marita Wu RD,LD. Lab / Micro Data 08/04/24 07:13 08/04/24 07:13 Labs: Laboratory Results - last 24 hr 08/03/24 17:18: POC Glucose 265 H 08/03/24 20:56: POC Glucose 268 H 08/04/24 07:13: WBC 3.0 L, RBC 3.10 L, Hgb 9.1 L, Hct 28.2 L, MCV 91.0, MCH 29.4, MCHC 32.3, RDW Std Deviation 56.9 H, RDW Coeff of Janice 17.2 H, Plt Count 119 L, MPV 9.6, Immature Gran % (Auto) 2.300 H, Neut % (Auto) 59.6, Lymph % (Auto) 31.1, [place] % (Auto) 4.0, Eos % (Auto) 2.3, Baso % (Auto) 0.7, Absolute Neuts (auto) 1.8 L, Absolute Lymphs (auto) 0.93, Nucleated RBC % 0.7, Differential Comment SCANNED, Atypical Lymphocytes 1+, Polychromasia 1+, Sodium 136, Potassium 4.0, Chloride 105, Carbon Dioxide 27.0, Anion Gap 5, BUN 10, C reatinine 0.57 L, Estim Creat Clear Calc 83.05, Est GFR (MDRD) Af Amer 182, Est GFR (MDRD) Non-Af 150, BUN/Creatinine Ratio 17.7, Glucose 100, Calcium 8.2 L 08/04/24 08:01: POC Glucose 92 08/04/24 11:33: POC Glucose 251 H 08/04/24 15:49: POC Glucose 290 H Micro: Microbiology 07/28/24 05:32 Stool Enteric Bacteriology - Final 07/28/24 05:32 Stool C. difficile GDH Antigen & Toxins - Final 07/28/24 05:32 Stool Clostridioides difficile (PCR) - Final 07/27/24 15:15 Stool Stool Occult Blood (ARNALDO) - Final Occult Blood Positive Physical Exam Narrative Seen and examined. Physical exam General: Alert, Oriented x3, Cooperative. BMI 21.5 kg/m?, severe malnutrition HEENT: Atraumatic, PERRLA, EOMI, Normocephalic Oral: Oral mucosa is dry. No Gingival or Mucosal Lesions/ Ulcerations Neck: Supple, No JVD, Negative Carotid Bruits Chest wall/Lungs: Air entry diminished in bilateral lung bases. No crepitation/rhonchi Cardiovascular: Regular rate, Regular Rhythm, Normal S1, Normal S2, No M/G/R Abdomen: Bowel Sounds Present, Soft, Non Tender, mild distention liquid BM. : No dysuria. No renal angle tenderness. No suprapubic tenderness. Extremities: No edema, Capillary Refill Less than 3 Seconds Skin: No rashes, No breakdown Musculoskeletal: No Tenderness to Palpation of Joints or Extremities, loss of subcutaneous fat and decreased muscle bulk. Neurological: Cranial nerves II-XII grossly intact, DTR 2+/4. No acute focal neurological deficit. Psych/Mental Status: Flat affect Assessment & Plan Assessment/Plan (1) Weakness: (2) Hypotension: (3) Colitis: (4) Rectal bleed: PLAN: Plan 74-year-old with severe reid ulcerative colitis complicated by C. 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 He is on steroid therapy. I will start vancomycin, IV Flagyl and colestipol. I will also check ESR, CRP, lactate. Steroids can be continued. If he tolerates these new oral medicines then I may start him on azathioprine. I will add Ensure protein +4 times a day. He will need TPN as he has severe hypoalbuminemia and start him IV albumin. In the context of severe ulcerative colitis, low albumin levels are considered a significant marker of disease severity and can indicate a poor prognosis, often requiring further medical intervention;?in such cases,?albumin may be administered intravenously to help raise serum albumin levels and potentially improve patient outcomes, although the primary focus should be on managing the underlying inflammation causing the low albumin levels.? 07/30/2024-severe reid ulcerative colitis complicated by C. difficile colitis along with weight loss, protein calorie malnutrition, protein-losing enteropathy, hyperglobulinemia, bicytopenia. He also has a intermittent lactic acidosis likely secondary from increased inflammation in his colon. He has not suffered any side effects from the azathioprine and steroids at this time. I will titrate up his azathioprine. His goal would be between 1 mg a kilogram of body weight and 2.5 mg/kg body weight for his severe ulcerative colitis. Recommend stool for CMV. He will be getting TPN. I talk with his and gave her an update on how he is doing. Patient is still high risk for needing colectomy. 07/31/2024-his abdominal pain is definitely better. He still being maintained on TPN. We checked magnesium, phosphorus, CBC, CMP. Blood work is pending except for the CBC. He is showing signs of pancytopenia that is likely a side effect of his azathioprine. He was increased from 50 mg to 100 mg a day. We will DC the Imuran. This also can be a side effect of prednisone. I think we need to keep mild immunosuppression with prednisone. If it is counts continue to go down then he may need repeat blood transfusions and possibly Neupogen. We consulted general surgery. At this time he appears to be stable so he does not need surgical intervention. I appreciate the consultation. It was recommended to repeat his CT scan abdomen pelvis and we will order that now. It does concern me that his CRP is back up to 75 when it was down to 5. Guarded prognosis at this time. 08/01/2024-patient is eating all his food so we can DC TPN. His hemoglobin is back up to 8 after blood transfusion. I think it was mostly secondary to immunosuppression from azathioprine and prednisone combination. He will only be on prednisone at this time. Hopefully I will have his blood counts will improve with him still on prednisone. Otherwise this will have to be stopped. Guarded condition. 08/02/2024-TPN was stopped. He ate his entire breakfast this morning. He is still persistently pancytopenic. But his white count is improving. His platelet count seems to be stable but low. He has not shown signs of DIC. Vancomycin was stopped by primary team. I think he should stay on oral Vanco due to the fact that he was on steroids and he received Remicade and azathioprine. Hopefully his hemoglobin will stabilize he will not need any more blood transfusions. Patient still is against her evaluation for colectomy. I will continue to follow. 08/04/2024-I stopped his IV albumin yesterday as he was receiving 25 mg a day of IV albumin to help with his severe protein calorie malnutrition and his protein- losing enteropathy secondary to severe ulcerative colitis. He is also off of TPN. He is down about 3 pounds today. He is off of the azathioprine as it was increased from 50 mg to 100 mg and I think he was having bone marrow suppression secondary to Imuran. His prednisone was decreased from 60 mg to 40 mg daily. Appreciate surgical consultation. Patient is less resistant to total colectomy at this time. His mj and Witts Severity Index for Ulcerative Colitis Which stratifies severity of ulcerative colitis gives him a score of moderate to severe colitis. This is in the setting of history of C. difficile colitis. The only thing we have not checked for is CMV colitis in his stool which we will order. Charges/Coding Visit Charges Inpatient E&M: 38248 Subs Hosp L3
[2024-08-04] MEDS: 0.9% Saline Lock 10 ML Syringe IV (21:34)
[2024-08-04] MEDS: Atorvastatin Calcium 10 MG Tablet PO (21:52)
[2024-08-04 22:00] VITALS: BP 122/38; PULSE 74; RESP 16; TEMP 36.3; O2SAT 95
[2024-08-05 00:10] LABS: Bedside Glucose 236 mg/dL (74-106)
[2024-08-05 03:17] VITALS: BMI 21.7
[2024-08-05 04:00] VITALS: BP 120/63; PULSE 87; RESP 16; TEMP 36.3; O2SAT 95
[2024-08-05] MEDS: Baclofen 10 MG Tablet 5 MG PO ×2 (06:31→14:37)
[2024-08-05] MEDS: Lactobacillis Acidophilus 1 CAP PO ×2 (06:31→14:37)
[2024-08-05] MEDS: Vancomycin 125 MG/5 ML Susp PO.SYRINGE PO ×3 (06:31→17:49)
[2024-08-05] MEDS: Dicyclomine 10 MG Capsule PO ×3 (06:31→16:21)
[2024-08-05] MEDS: metroNIDAZOLE 500 MG/100 ML BAG 100 MG IV ×2 (06:32→14:37)
[2024-08-05 06:39] LABS: Absolute Lymphocyte Count 1.16 X10^3/uL (0.83-4.51); Absolute Neutrophil Count 2.3 X10^3/uL (2.0-7.7); Basophil# 0.01 X10^3/uL; Basophil% 0.3 % (0-1); Eosinophil# 0.09 X10^3/uL; Eosinophils% 2.4 % (0-5); Hematocrit 29.8 % (40-54); Hemoglobin 9.4 g/dL (13.0-16.5); Lymphocyte # 1.16 X10^3/ul (0.83-4.51); Lymphocyte % 30.5 % (19-41); Mean Corp Hgb Conc 31.5 g/dL (32-36); Mean Corpuscular Hgb 28.6 pg (27.0-32.0); Mean Corpuscular Volume 90.6 fL (80-94); Mean Platelet Vol. 9.5 fl (6.2-12.0); Monocyte# 0.13 X10^3/uL; Monocyte% 3.4 % (0-10); NRBC Flagged by Analyzer 0 % (0-5); Neutrophil % 60.5 % (47-70); POSITIVE MORPHOLOGY YES; Platelet Count 138 K/mm3 (150-450); RBC Distribution Width CV 17.2 % (11.6-14.6); RBC Distribution Width SD 57.1 fl (35.1-43.9); Red Blood Count 3.29 M/mm3 (4.6-6.2); White Blood Count 3.8 K/mm3 (4.4-11.0)
[2024-08-05 06:50] LABS: Anion Gap 5 (5-15); BUN 10 mg/dL (7-18); BUN/Creat Ratio 17.5 RATIO (10-20); Calcium,Total 8.1 mg/dL (8.5-10.1); Chloride 103 mmol/L (98-107); Creatinine, Serum 0.57 mg/dL (0.70-1.30); EST Glomerular Filtration Rate 149 mL/min (>60); Est Glom Filt Rate - Afr Amer 180 mL/min (>60); Estimated Creatinine Clearance 82.24 ml/min; Glucose 88 mg/dL (74-106); Potassium 3.8 mmol/L (3.5-5.1); Sodium Level 133 mmol/L (136-145)
[2024-08-05 06:52] LABS: Albumin, Serum 2.1 g/dL (3.2-5.0)
[2024-08-05 06:53] LABS: Differential Indicated SCAN CRITERIA MET
--- NOTE | 2024-08-05 07:26 | PCM.PN.SRG ---
Subjective Subjective Patient evaluated resting comfortably in bed. He denies any abdominal pain/pressure/discomfort. He continues to have loose stools daily. He notes they are decreasing in quantity. He continues to note blood mixed with his stool. He notes the rectal bleeding has been ongoing for 2 months. Objective Data Objective Data Vital Signs: Vital Signs Temp Pulse Resp BP Pulse Ox O2 Del Method 97.4 F L 87 16 120/63 95 Room Air 08/05/24 04:00 08/05/24 04:00 08/05/24 04:00 08/05/24 04:00 08/05/24 04:00 08/05/24 04:00 Oxygen Delivery Method Room Air Weight: 155 lb 13.869 oz Body Mass Index (BMI) 21.7 Intake & Output: Intake and Output for Last 24 Hours 08/03/24 08/04/24 08/05/24 23:59 23:59 23:59 Intake Total 1190 / 1190 1100 / 1100 240 / 240 Output Total 250 / 250 750 / 1075 325 / 325 Balance 940 / 940 350 / 25 -85 / -85 Medical Nutrition Assessment Dietitian: Malnutrition Criteria Met Start: 07/28/24 11:05 Freq: Status: Active Protocol: Document 07/28/24 15:20 SB (Rec: 07/28/24 15:20 SB [id number]) Nutrition Malnutrition Evidence of Malnutrition Exists Yes Evidenced By Suboptimal Energy Intake ( Severe),Weight Loss (Severe) Clinical Problem Acute Disease or Injury Related Malnutrition Etiology severe protein-calorie malnutrition in the context of acute illness related to altered GI function and inadequate oral intake Signs/Symptoms as evidenced by 2% unintentional weight loss x 1 week and PO meeting <75% of estimated nutrition needs x 2- 3 weeks. Status Active Problem Recommendation Dietitian Recommendations/Changes Continue 1800 calorie controlled/consistent carbohydrate diet. Continue 120ml glucerna shake 4x daily with medpass. Will order vanilla fortified pudding with dinner tray. Will monitor weight trends. Reviewed and approved by Marita Wu RD,LD. Lab / Micro Data 08/05/24 05:20 08/05/24 05:20 Labs: Laboratory Results - last 24 hr 08/04/24 07:13: WBC 3.0 L, RBC 3.10 L, Hgb 9.1 L, Hct 28.2 L, MCV 91.0, MCH 29.4, MCHC 32.3, RDW Std Deviation 56.9 H, RDW Coeff of Janice 17.2 H, Plt Count 119 L, MPV 9.6, Immature Gran % (Auto) 2.300 H, Neut % (Auto) 59.6, Lymph % (Auto) 31.1, [place] % (Auto) 4.0, Eos % (Auto) 2.3, Baso % (Auto) 0.7, Absolute Neuts (auto) 1.8 L, Absolute Lymphs (auto) 0.93, Nucleated RBC % 0.7, Differential Comment SCANNED, Atypical Lymphocytes 1+, Polychromasia 1+, Sodium 136, Potassium 4.0, Chloride 105, Carbon Dioxide 27.0, Anion Gap 5, BUN 10, Creatinine 0.57 L, Estim Creat Clear Calc 83.05, Est GFR (MDRD) Af Amer 182, Est GFR (MDRD) Non-Af 150, BUN/Creatinine Ratio 17.7, Glucose 100, Calcium 8.2 L 08/04/24 08:01: POC Glucose 92 08/04/24 11:33: POC Glucose 251 H 08/04/24 15:49: POC Glucose 290 H 08/04/24 21:39: POC Glucose 236 H 08/05/24 05:20: WBC 3.8 L, RBC 3.29 L, Hgb 9.4 L, Hct 29.8 L, MCV 90.6, MCH 28.6, MCHC 31.5 L, RDW Std Deviation 57.1 H, RDW Coeff of Janice 17.2 H, Plt Count 138 L, MPV 9.5, Immature Gran % (Auto) 2.900 H, Neut % (Auto) 60.5, Lymph % (Auto) 30.5, [place] % (Auto) 3.4, Eos % (Auto) 2.4, Baso % (Auto) 0.3, Absolute Neuts (auto) 2.3, Absolute Lymphs (auto) 1.16, Nucleated RBC % 0, Sodium 133 L, Potassium 3.8, Chloride 103, Carbon Dioxide 25.0, Anion Gap 5, BUN 10, Creatinine 0.57 L, Estim Creat Clear Calc 82.24, Est GFR (MDRD) Af Amer 180, Est GFR (MDRD) Non-Af 149, BUN/Creatinine Ratio 17.5, Glucose 88, Calcium 8.1 L, Albumin 2.1 L Micro: Microbiology 08/04/24 22:15 Stool Stool Lactoferrin - Final 08/04/24 22:15 Stool Enteric Bacteriology - Final 08/04/24 22:15 Stool Clostridioides difficile (PCR) - Final 07/28/24 05:32 Stool Enteric Bacteriology - Final 07/28/24 05:32 Stool C. difficile GDH Antigen & Toxins - Final 07/28/24 05:32 Stool Clostridioides difficile (PCR) - Final 07/27/24 15:15 Stool Stool Occult Blood (ARNALDO) - Final Occult Blood Positive Physical Exam GI normal to inspection, nondistended, normoactive bowel sounds, soft to palpation and non-tender Auscultation: normoactive bowel sounds Palpation: Negative for tender Assessment & Plan Assessment/Plan (1) Colitis: PLAN: I am following this patient in conjunction with Dr. Murillo. He will independently evaluate this patient. Labs reviewed. Hgb remains stable. Tolerating regular diet without N/V No surgical intervention is being recommended Patient seems to be improving Patient may follow-up with Dr. Murillo as an outpatient to be referred to colorectal surgery for consideration of a total colectomy We will continue to follow with the patient during his hospitalization Charges/Coding Visit Charges Inpatient E&M: 88330 [facility] Hosp L1
[2024-08-05 08:07] LABS: Bedside Glucose 87 mg/dL (74-106)
[2024-08-05 08:43] LABS: Atypical Lymphocyte 1+ %
--- NOTE | 2024-08-05 08:44 | PN.GI_ITS ---
Subjective Subjective Patient stated that he feels the same. I told him that he would likely need a total colectomy with ileostomy and that I did not think he would be a candidate for J-pouch due to his age, severity of disease, poor nutrition and long history of smoking. Objective Data Objective Data Vital Signs: Vital Signs Temp Pulse Resp BP Pulse Ox O2 Del Method 99.3 F H 90 18 97/54 L 98 Room Air 08/05/24 15:30 08/05/24 15:30 08/05/24 15:30 08/05/24 15:30 08/05/24 15:30 08/05/24 15:30 Oxygen Delivery Method Room Air Weight: 155 lb 13.869 oz Body Mass Index (BMI) 21.7 Intake & Output: Intake and Output for Last 24 Hours 08/03/24 08/04/24 08/05/24 23:59 23:59 23:59 Intake Total 1190 / 1190 1100 / 1100 1280 / 1280 Output Total 250 / 250 750 / 1075 425 / 425 Balance 940 / 940 350 / 25 855 / 855 Medical Nutrition Assessment Dietitian: Malnutrition Criteria Met Start: 07/28/24 11:05 Freq: Status: Active Protocol: Document 07/28/24 15:20 SB (Rec: 07/28/24 15:20 SB [id number]) Nutrition Malnutrition Evidence of Malnutrition Exists Yes Evidenced By Suboptimal Energy Intake ( Severe),Weight Loss (Severe) Clinical Problem Acute Disease or Injury Related Malnutrition Etiology severe protein-calorie malnutrition in the context of acute illness related to altered GI function and inadequate oral intake Signs/Symptoms as evidenced by 2% unintentional weight loss x 1 week and PO meeting <75% of estimated nutrition needs x 2- 3 weeks. Status Active Problem Recommendation Dietitian Recommendations/Changes Continue 1800 calorie controlled/consistent carbohydrate diet. Continue 120ml glucerna shake 4x daily with medpass. Will order vanilla fortified pudding with dinner tray. Will monitor weight trends. Reviewed and approved by Marita Wu RD,LD. Lab / Micro Data 08/05/24 05:20 08/05/24 05:20 Labs: Laboratory Results - last 24 hr 08/04/24 21:39: POC Glucose 236 H 08/05/24 05:20: WBC 3.8 L, RBC 3.29 L, Hgb 9.4 L, Hct 29.8 L, MCV 90.6, MCH 28.6, MCHC 31.5 L, RDW Std Deviation 57.1 H, RDW Coeff of Janice 17.2 H, Plt Count 138 L, MPV 9.5, Immature Gran % (Auto) 2.900 H, Neut % (Auto) 60.5, Lymph % (Auto) 30.5, Lipscomb % (Auto) 3.4, Eos % (Auto) 2.4, Baso % (Auto) 0.3, Absolute Neuts (auto) 2.3, Absolute Lymphs (auto) 1.16, Nucleated RBC % 0, Atypical Lymphocytes 1+, Sodium 133 L, Potassium 3.8, Chloride 103, Carbon Dioxide 25.0, Anion Gap 5, BUN 10, Creatinine 0.57 L, Estim Creat Clear Calc 82.24, Est GFR (MDRD) Af Amer 180, Est GFR (MDRD) Non-Af 149, BUN/Creatinine Ratio 17.5, Glucose 88, Calcium 8.1 L, Albumin 2.1 L, Stl Giardia Antigen Cancelled 08/05/24 07:50: POC Glucose 87 08/05/24 11:37: POC Glucose 146 H 08/05/24 16:21: POC Glucose 338 H Micro: Microbiology 08/04/24 22:15 Stool Stool Lactoferrin - Final 08/04/24 22:15 Stool Enteric Bacteriology - Final 08/04/24 22:15 Stool Clostridioides difficile (PCR) - Final 07/28/24 05:32 Stool Enteric Bacteriology - Final 07/28/24 05:32 Stool C. difficile GDH Antigen & Toxins - Final 07/28/24 05:32 Stool Clostridioides difficile (PCR) - Final 07/27/24 15:15 Stool Stool Occult Blood (ARNALDO) - Final Occult Blood Positive Physical Exam Narrative Physical exam General: Alert, Oriented x3, Cooperative. BMI 21.5 kg/m?, severe malnutrition HEENT: Atraumatic, PERRLA, EOMI, Normocephalic Oral: Oral mucosa is dry. No Gingival or Mucosal Lesions/ Ulcerations Neck: Supple, No JVD, Negative Carotid Bruits Chest wall/Lungs: Air entry diminished in bilateral lung bases. No crepitation/rhonchi Cardiovascular: Regular rate, Regular Rhythm, Normal S1, Normal S2, No M/G/R Abdomen: Bowel Sounds Present, Soft, Non Tender, mild distention. : No dysuria. No renal angle tenderness. No suprapubic tenderness. Extremities: No edema, Capillary Refill Less than 3 Seconds Skin: No rashes, No breakdown Musculoskeletal: No Tenderness to Palpation of Joints or Extremities, loss of subcutaneous fat and decreased muscle bulk. Neurological: Cranial nerves II-XII grossly intact, DTR 2+/4. No acute focal neurological deficit. Psych/Mental Status: Flat affect Assessment & Plan Assessment/Plan (1) Weakness: (2) Hypotension: (3) Colitis: (4) Rectal bleed: PLAN: Plan 74-year-old with severe reid ulcerative colitis complicated by C. 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 He is on steroid therapy. I will start vancomycin, IV Flagyl and colestipol. I will also check ESR, CRP, lactate. Steroids can be continued. If he tolerates these new oral medicines then I may start him on azathioprine. I will add Ensure protein +4 times a day. He will need TPN as he has severe hypoalbuminemia and start him IV albumin. In the context of severe ulcerative colitis, low albumin levels are considered a significant marker of disease severity and can indicate a poor prognosis, often requiring further medical intervention;?in such cases,?albumin may be administered intravenously to help raise serum albumin levels and potentially improve patient outcomes, although the primary focus should be on managing the underlying inflammation causing the low albumin levels.? 07/30/2024-severe reid ulcerative colitis complicated by C. difficile colitis along with weight loss, protein calorie malnutrition, protein-losing enteropathy, hyperglobulinemia, bicytopenia. He also has a intermittent lactic acidosis likely secondary from increased inflammation in his colon. He has not suffered any side effects from the azathioprine and steroids at this time. I will titrate up his azathioprine. His goal would be between 1 mg a kilogram of body weight and 2.5 mg/kg body weight for his severe ulcerative colitis. Recommend stool for CMV. He will be getting TPN. I talk with his and gave her an update on how he is doing. Patient is still high risk for needing colectomy. 07/31/2024-his abdominal pain is definitely better. He still being maintained on TPN. We checked magnesium, phosphorus, CBC, CMP. Blood work is pending except for the CBC. He is showing signs of pancytopenia that is likely a side effect of his azathioprine. He was increased from 50 mg to 100 mg a day. We will DC the Imuran. This also can be a side effect of prednisone. I think we need to keep mild immunosuppression with prednisone. If it is counts continue to go down then he may need repeat blood transfusions and possibly Neupogen. We consulted general surgery. At this time he appears to be stable so he does not need surgical intervention. I appreciate the consultation. It was recommended to repeat his CT scan abdomen pelvis and we will order that now. It does concern me that his CRP is back up to 75 when it was down to 5. Guarded prognosis at this time. 08/01/2024-patient is eating all his food so we can DC TPN. His hemoglobin is back up to 8 after blood transfusion. I think it was mostly secondary to immunosuppression from azathioprine and prednisone combination. He will only be on prednisone at this time. Hopefully I will have his blood counts will improve with him still on prednisone. Otherwise this will have to be stopped. Guarded condition. 08/02/2024-TPN was stopped. He ate his entire breakfast this morning. He is still persistently pancytopenic. But his white count is improving. His platelet count seems to be stable but low. He has not shown signs of DIC. Vancomycin was stopped by primary team. I think he should stay on oral Vanco due to the fact that he was on steroids and he received Remicade and azathioprine. Hopefully his hemoglobin will stabilize he will not need any more blood transfusions. Patient still is against her evaluation for colectomy. I will continue to follow. 08/04/2024-I stopped his IV albumin yesterday as he was receiving 25 mg a day of IV albumin to help with his severe protein calorie malnutrition and his protein- losing enteropathy secondary to severe ulcerative colitis. He is also off of TPN. He is down about 3 pounds today. He is off of the azathioprine as it was increased from 50 mg to 100 mg and I think he was having bone marrow suppression secondary to Imuran. His prednisone was decreased from 60 mg to 40 mg daily. Appreciate surgical consultation. Patient is less resistant to total colectomy at this time. His mj and Witts Severity Index for Ulcerative Colitis Which stratifies severity of ulcerative colitis gives him a score of moderate to severe colitis. This is in the setting of history of C. difficile colitis. The only thing we have not checked for is CMV colitis in his stool which we will order. 08/05/2024-patient is okay to DC to skilled nursing with tapering dose of vancomycin and continued prednisone therapy. Follow-up in the clinic for further management of his ulcerative colitis. Charges/Coding Visit Charges Inpatient E&M: 09335 Subs Hosp L3
[2024-08-05 09:31] VITALS: BP 97/55; PULSE 67; RESP 18; TEMP 37.3; O2SAT 93
[2024-08-05] MEDS: Glucerna Shake 120 ML LIQUID PO ×3 (09:31→17:49)
[2024-08-05] MEDS: Colestipol 1 GM TABLET PO (09:32)
[2024-08-05] MEDS: Thiamine Hydrochloride 100 MG Tablet PO (09:32)
[2024-08-05] MEDS: Pantoprazole Sodium 40 MG Tablet PO (09:32)
[2024-08-05] MEDS: Folic Acid 1 MG Tablet PO (09:32)
[2024-08-05] MEDS: MESALAMINE 400 MG CAPSULE.DR PO (09:32)
[2024-08-05] MEDS: predniSONE 20 MG Tablet 40 MG PO (09:32)
[2024-08-05] MEDS: Pregabalin 75 MG Capsule 150 MG PO (09:32)
[2024-08-05] MEDS: Nystatin Powder 15gm Bottle 1 APPLIC TOPICAL (09:33)
--- NOTE | 2024-08-05 10:42 | CASEMGMT ---
Insurance review for hospitals In-network with [facility] insurance if transfer is recommended is as follows: [facility], [facility], [facility], [place], [facility], [place], [facility], [facility], [place], and . Kaity Ramirez, Discharge Planning Asst.
--- NOTE | 2024-08-05 11:25 | PCM.TXEXTCAR ---
Diet Diet Order/Speech Therapy: 07/27/24 17:47 Diet: Consistent Carb - Calorie Controlled Food consistency:: Regular Liquid Consistency:: Regular/Thin Type of Dietary Supplement:: Beneprotein Diet Comments: van fortified pudding w/ D, 1 scoop Benepro & 1 extra oz pro/meat tid How many daily calories?: 1800 calorie DC O2, CPAP, BIPAP needs Home O2 Discharge instructions: No Wound(s) Buttock: Wound Type: Incontinence Associated Dermatitis with small open areas Therapies Extremity Affected:: Bilateral Lower Physical Therapy: Eval and Treat Occupational Therapy: Eval and Treat Speech Therapy: Eval and Treat Problem/Diagnosis (1) Colitis: Status: Acute Code(s): K52.9 - Noninfective gastroenteritis and colitis, unspecified Plan Patient is a 74-year-old gentleman with pancolitis ulcerative colitis is a readmission after discharge for the same diagnosis of diarrhea with hematochezia. Patient was feeling dizzy and lightheaded. 1. Near syncope symptoms due to low blood pressure: Patient is being admitted in PCU. He has chronically low BP from diarrhea. Supine BP 97/63, 99/59, 106/53 and on sitting it was 93/63 and heart rate went up from 83 to 94/min. He does not meet criteria for hypotension with patient on IV fluid. 07/29: Blood pressure is still on lower side but denies any dizziness. 07/30: Blood pressure on baseline. 07/31: BP on baseline. No fever. 08/01: Heart rate and blood pressure normal limit. No fever. 2. Chronic severe ulcerative colitis: Patient was discharged after almost 2 weeks of hospital stay. During that time patient was treated with IV Solu-Medrol and also Remicade was given after insurance approval. On high-dose prednisone. On mesalamine. Discussed with TNF inhibitor takes time about 6 weeks for action. 07/29: Seen by GI. 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 Continue oral vancomycin, IV Flagyl and colestipol. Based on the tolerance of new medication, recommended may consider azathioprine. 07/30: Patient had right arm PICC line. Order Takers Supervisor consult to calculate TPN calories and is started. Mild improvement in diarrhea. 07/31: Patient has pancytopenia, WBC 1.6, H&H dropped 6.8/22% platelet count 100 9K. Patient was started on azathioprine yesterday and is discontinued. CT abdomen pelvis with contrast done. It shows thickening and inflammatory changes in the rectosigmoid colon consistent with colitis. Patient on IV Flagyl. P.o. vancomycin for C. difficile. General surgery was consulted. Inflammatory markers, CRP and ESR and lactate are elevated. Patient does not need urgent or emergent surgical intervention. Patient is not an ideal surgical candidate for multiple regions including malnutrition. If total colectomy is warranted patient will need transfer to tertiary care/colorectal surgery. 08/01: Frequency of loose bowel movement is better today. 08/02: Stool for C. difficile was positive for PCR and A and B antigen but toxin negative. Discussed with the GI. Since patient was on azathioprine and Remicade and therefore immunocompromised status with pancolitis with unhealthy colonic mucosa, high risk for invasive C. difficile therefore decided to continue oral vancomycin for 1 more week. Patient had 10 days of oral vancomycin in June and 4 days since admission this time. Discussed with the forms designer and surgeon. 08/03: Patient is still having bloody bowel movement 4 times a day. Hemoglobin 9.2 after PRBC transfusion. Continue oral vancomycin. 08/04: Still having bloody bowel movements. Hemoglobin 9.1 no significant acute drop to require PRBC transfusion 3. Chronic normocytic normochromic anemia from hematochezia: Hemoglobin is around 8 to 9 g back to baseline. 08/01: Hemoglobin is decreased to 6.8 yesterday and 1 unit of PRBC was ordered. Hemoglobin increased to 8 g%. Pancytopenia WBC 2.1K, ANC 1.3K and platelet count 104 K 08/02: Hemoglobin improved to 8.5%. 4. Hyponatremia from hypovolemia: Serum sodium 135. 08/01: Sodium is 137, potassium 4.2. 5. Dyslipidemia ?Patient is on statin therapy, continued at home dose 6. Diabetes mellitus type 2: Metformin was held due to lactic acidosis. Accu-Chek before meals and at bedtime with Humalog sliding scale coverage and hypoglycemia protocol. 7. DVT prophylaxis Anticoagulation contraindicated at this time. 8. Severe malnutrition: Patient progressively decreasing body weight. Due to pancolitis, inadequate oral intake and malabsorption from ulcerative colitis. Ensure 4 times daily Severe malnutrition as evidenced by: 5% unintentional weight loss in less than 1 month and PO meeting less than 50% estimated nutrition 08/01: During this hospital stay, patient had right arm PICC line and TPN was started. 08/02: Patient will complete the bag of TPN today. 08/03: TPN was completed yesterday. Allergies/Procedures Done in Hospital Allergies ibuprofen Adverse Reaction (Verified 07/27/24 17:03) Upset Stomach Type of Care/Length of Stay Estimated LOS: Convalescent Care Less Than 30 days Type of Care Needed: Skilled Rehab Potential: Fair Prognosis: Fair Additional Orders/Day of Discharge Day of Discharge: 08/05/24 Dietary and Speech Recommendations Dietitian Recommendations/Changes: Continue 1800 calorie controlled/consistent carbohydrate diet, 120ml glucerna shake 4x daily with medpass, vanilla fortified pudding with dinner tray. Continue 1 scoop of beneprotein TID and extra 1oz of protein/meat TID with meals. Will order albumin lab values for tomorrow. Will monitor weight trends, labs, and make adjust as needed. Reviewed and approved by Marita Wu RD, LD. Discharge Plan Admission Admit Date/Time: 07/27/24 17:03 Primary Reason for Your Visit: Ibarra ulcerative colitis. C. difficile colonization Attending Provider: Lb Hall Primary Care Provider: Reji Levin Consulting Providers: Ronel Lang; Jorge Murillo Discharge Orders/Prescriptions Prescriptions: New folic acid 1 mg Tablet 1 mg PO BREAKFAST Qty: 0 0RF colestipol 1 gram Tablet 1 g PO BID Qty: 0 0RF insulin lispro [Humalog KwikPen Insulin] 100 unit/mL Insulin Pen See Protocol subcut ACHS Qty: 0 0RF Protocol: 1. Sliding Scale Insulin Low Dosing Condition: 150-224 mg/dl = 1 unit Condition: 225-299 mg/dl = 2 units Condition: 300-374 mg/dl = 3 units Condition: 375-449 mg/dl = 4 units Condition: Greater than 449 call physician Protocol Text: Suggested for: - Patients on Total Daily Insulin Dose of 15-27 units - Thin, elderly, renal patients LOW DOSING ALGORITHM vancomycin [Firvanq] 25 mg/mL Recon Soln 125 mg PO Q6 7 Days Qty: 140 0RF prednisone 20 mg Tablet 40 mg PO DAILYCM 30 Days Qty: 0 0RF insulin lispro [Humalog KwikPen Insulin] 100 unit/mL Insulin Pen 10 unit subcut TIDAC Qty: 0 0RF Rx Instructions: Hold if glucose less than 130 mg/dl insulin glargine [Lantus U-100 Insulin] 100 unit/mL solution 8 unit subcut DAILY 30 Days Qty: 10 2RF Rx Instructions: Hold if glucose less than 130 mg/dl Continued albuterol sulfate 90 mcg/actuation HFA aerosol inhaler 1 inh inhalation Q6H PRN (Reason: shortness of breath or wheezing) Qty: 8.5 1RF triamcinolone acetonide 0.5 % cream 1 applic TOPICAL BID Patient Comments: RASH ON LEG simvastatin 20 mg tablet 20 mg PO QHS pregabalin 150 mg capsule 150 mg PO BID pantoprazole 40 mg Tablet,Delayed Release (Dr/Ec) 40 mg PO DAILY Qty: 30 0RF dicyclomine 10 mg Capsule 10 mg PO TIDAC Qty: 60 0RF mesalamine [Pentasa] 500 mg capsule, extended release 500 mg PO BID 30 Days Qty: 60 0RF Changed baclofen 10 mg tablet 5 mg PO TID 30 Days Qty: 0 0RF Patient Comments: take 1 tablet by mouth three times a day Rx Instructions: Hold for lethargy/sedation. Hold for SBP less than 100 mmHg Discontinued metformin 1,000 mg tablet 1,000 mg PO BID prednisone 20 mg tablet 40 mg PO DAILY 14 Days Qty: 28 0RF Referrals / Follow Up: Reji Levin MD [Primary Care Provider] - Guicho Penny DO [Med Staff - Active Staff] - Within 1 Month Jorge Murillo MD [Med Staff - Active Staff] - Within 1 Month (For pancolitis. Referral to tertiary care center for evaluation of total colectomy) Disposition Disposition (needs filled in before D/C Order can be placed): [facility] Facility
[2024-08-05] MEDS: Insulin Lispro 100 UNIT/ML INSULN.PEN 8 UNIT SC ×2 (11:38→16:23)
[2024-08-05 12:07] LABS: Bedside Glucose 146 mg/dL (74-106)
--- NOTE | 2024-08-05 14:55 | PCM.DC.SUM ---
Providers Date of Admission: 07/27/24 Date of Discharge: 08/05/24 Primary Care Physician: Dr. Reji Levin MD Consultations 07/27/24 17:46 Consult: Gastroenterology Routine Consulting Provider: [facility] Reason for Consult: recent UC flare, ongoing diarrhea/bleeding EMERGENT Consult: No Notified: Yes Date Notified: 07/27/24 Time Notified: 17:05 Method of Notification: ED Physician Initiated 07/30/24 01:42 Consult: Onc/Wound/molded parts inspector Routine Comment: Comments:: open area/ continued diarrhea with cdiff 07/31/24 13:37 Consult: General Surgery Routine Consulting Provider: Jorge Murillo Reason for Consult: Severe Ulcerative Colitis EMERGENT Consult: Yes MD Notified: Yes Date Notified: 07/31/24 Time Notified: 13:37 Method of Notification: Verbal Reason For Visit: ADULT FTT, RECENT ADMIT UC FLARE WITH GI BLEED Diagnosis Discharge Diagnosis (1) Colitis: Status: Acute Code(s): K52.9 - Noninfective gastroenteritis and colitis, unspecified Plan Patient is a 74-year-old gentleman with pancolitis ulcerative colitis is a readmission after discharge for the same diagnosis of diarrhea with hematochezia. Patient was feeling dizzy and lightheaded. 1. Near syncope symptoms due to low blood pressure: Patient is being admitted in PCU. He has chronically low BP from diarrhea. Supine BP 97/63, 99/59, 106/53 and on sitting it was 93/63 and heart rate went up from 83 to 94/min. He does not meet criteria for hypotension with patient on IV fluid. 07/29: Blood pressure is still on lower side but denies any dizziness. 07/30: Blood pressure on baseline. 07/31: BP on baseline. No fever. 08/01: Heart rate and blood pressure normal limit. No fever. 08/05: Heart rate and blood pressure on baseline. 2. Chronic severe ulcerative colitis: Patient was discharged after almost 2 weeks of hospital stay. During that time patient was treated with IV Solu-Medrol and also Remicade was given after insurance approval. On high-dose prednisone. On mesalamine. Discussed with TNF inhibitor takes time about 6 weeks for action. 07/29: Seen by GI. 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 Continue oral vancomycin, IV Flagyl and colestipol. Based on the tolerance of new medication, recommended may consider azathioprine. 07/30: Patient had right arm PICC line. Beam Dyer Recessed Vat consult to calculate TPN calories and is started. Mild improvement in diarrhea. 07/31: Patient has pancytopenia, WBC 1.6, H&H dropped 6.8/22% platelet count 100 9K. Patient was started on azathioprine yesterday and is discontinued. CT abdomen pelvis with contrast done. It shows thickening and inflammatory changes in the rectosigmoid colon consistent with colitis. Patient on IV Flagyl. P.o. vancomycin for C. difficile. General surgery was consulted. Inflammatory markers, CRP and ESR and lactate are elevated. Patient does not need urgent or emergent surgical intervention. Patient is not an ideal surgical candidate for multiple regions including malnutrition. If total colectomy is warranted patient will need transfer to tertiary care/colorectal surgery. 08/01: Frequency of loose bowel movement is better today. 08/02: Stool for C. difficile was positive for PCR and A and B antigen but toxin negative. Discussed with the GI. Since patient was on azathioprine and Remicade and therefore immunocompromised status with pancolitis with unhealthy colonic mucosa, high risk for invasive C. difficile therefore decided to continue oral vancomycin for 1 more week. Patient had 10 days of oral vancomycin in June and 4 days since admission this time. Discussed with the mobile application developer and surgeon. 08/03: Patient is still having bloody bowel movement 4 times a day. Hemoglobin 9.2 after PRBC transfusion. Continue oral vancomycin. 08/04: Still having bloody bowel movements. Hemoglobin 9.1 no significant acute drop to require PRBC transfusion 08/05: Patient is still having bloody bowel movements 2 to 4/min it is better than what he came with but it is not going to be totally resolved. Discussed in detail with mobile application developer that keeping here inpatient would not change his further hospital course or outcome. Patient is having full adequate diet. Surgeon does not recommend surgical treatment at this point of time or suboptimal surgical candidate from nutrition point of view. Therefore patient discharged to SNF for rehab with follow-up with GI and surgery clinic. Patient will need referral to colorectal surgeon in tertiary care. Patient is discharged on prednisone 40 mg daily, mesalamine, vancomycin and colestipol. Patient was also started on Remicade IV infusion as per GI recommendation 3. Chronic normocytic normochromic anemia from hematochezia: Hemoglobin is around 8 to 9 g back to baseline. 08/01: Hemoglobin is decreased to 6.8 yesterday and 1 unit of PRBC was ordered. Hemoglobin increased to 8 g%. Pancytopenia WBC 2.1K, ANC 1.3K and platelet count 104 K 08/02: Hemoglobin improved to 8.5%. 08/05: Hemoglobin is 9.4. 4. Hyponatremia from hypovolemia: Serum sodium 135. 08/01: Sodium is 137, potassium 4.2. 5. Dyslipidemia ?Patient is on statin therapy, continued at home dose 6. Diabetes mellitus type 2: Metformin was held due to lactic acidosis. Accu-Chek before meals and at bedtime with Humalog sliding scale coverage and hypoglycemia protocol. 7. DVT prophylaxis Anticoagulation contraindicated at this time. 8. Severe malnutrition: Patient progressively decreasing body weight. Due to pancolitis, inadequate oral intake and malabsorption from ulcerative colitis. Ensure 4 times daily Severe malnutrition as evidenced by: 5% unintentional weight loss in less than 1 month and PO meeting less than 50% estimated nutrition 08/01: During this hospital stay, patient had right arm PICC line and TPN was started. 08/02: Patient will complete the bag of TPN today. 08/03: TPN was completed yesterday. Discharge medication reconciliation done. Discharge follow-up instructions completed. Discharge process discussed with the patient and all questions were answered to patient's satisfaction. Follow with PCP in 1 to 2 weeks Total time spent, exact 35 minutes on discharge meds reconciliation, examination, coordination of care with nurses and ancillary staff, review of imaging and blood test and discussion with the patient on follow-up instructions. Medications at Discharge Home Medications albuterol sulfate 90 mcg/actuation aerosol inhaler 1 inh inhalation Q6H PRN shortness of breath or wheezing #8.5 grams 02/26/21 pregabalin 150 mg capsule 150 mg PO BID . 06/19/24 simvastatin 20 mg tablet 20 mg PO QHS . 06/19/24 triamcinolone acetonide 0.5 % topical cream 1 applic topical BID RASH 06/19/24 dicyclomine 10 mg capsule 10 mg PO TIDAC . #60 caps 07/23/24 mesalamine 500 mg capsule,extended release (Pentasa) 500 mg PO BID pain/inflammation 30 days #60 caps 07/23/24 pantoprazole 40 mg tablet,delayed release 40 mg PO DAILY GERD #30 tabs 07/23/24 baclofen 10 mg tablet 5 mg (1/2 x 10 mg) PO TID pain 30 days #0 tabs 08/05/24 colestipol 1 gram tablet 1 g PO BID #0 tabs 08/05/24 folic acid 1 mg tablet 1 mg PO BREAKFAST #0 tabs 08/05/24 insulin glargine 100 unit/mL subcutaneous solution (Lantus U-100 Insulin) 8 unit (0.08 mL) subcut DAILY 1 month #10 mL 08/05/24 insulin lispro 100 unit/mL subcutaneous pen (Humalog KwikPen (U-100) Insulin) 10 unit (0.1 mL) subcut TIDAC #0 mL 08/05/24 insulin lispro 100 unit/mL subcutaneous pen (Humalog KwikPen (U-100) Insulin) See Protocol subcut ACHS #0 mL 08/05/24 prednisone 20 mg tablet 40 mg (2 x 20 mg) PO DAILYCM 30 days #0 tabs 08/05/24 vancomycin 25 mg/mL oral solution (Firvanq) 125 mg (5 mL) PO Q6 7 days #140 mL 08/05/24 Physical Exam Narrative Seen and examined. Patient having usable 2-4 with blood in the stool. Hemoglobin maintained about 9.5 g%. Denies abdominal pain or abdominal distention. Patient ate all his meals Patient admitted with diarrhea and rectal bleeding that has been ongoing for 2 months. He was discharged on 07/23 and then admitted on 07/27. Physical exam General: Alert, Oriented x3, Cooperative. BMI 21.5 kg/m?, severe malnutrition HEENT: Atraumatic, PERRLA, EOMI, Normocephalic Oral: Oral mucosa is dry. No Gingival or Mucosal Lesions/ Ulcerations Neck: Supple, No JVD, Negative Carotid Bruits Chest wall/Lungs: Air entry diminished in bilateral lung bases. No crepitation/rhonchi Cardiovascular: Regular rate, Regular Rhythm, Normal S1, Normal S2, No M/G/R Abdomen: Bowel Sounds Present, Soft, Non Tender, mild distention. : No dysuria. No renal angle tenderness. No suprapubic tenderness. Extremities: No edema, Capillary Refill Less than 3 Seconds Skin: No rashes, No breakdown Musculoskeletal: No Tenderness to Palpation of Joints or Extremities, loss of subcutaneous fat and decreased muscle bulk. Neurological: Cranial nerves II-XII grossly intact, DTR 2+/4. No acute focal neurological deficit. Psych/Mental Status: Flat affect Medical Records Data Medical Nutrition Assessment Dietitian: Malnutrition Criteria Met Start: 07/28/24 11:05 Freq: Status: Active Protocol: Document 07/28/24 15:20 SB (Rec: 07/28/24 15:20 SB [id number]) Nutrition Malnutrition Evidence of Malnutrition Exists Yes Evidenced By Suboptimal Energy Intake ( Severe),Weight Loss (Severe) Clinical Problem Acute Disease or Injury Related Malnutrition Etiology severe protein-calorie malnutrition in the context of acute illness related to altered GI function and inadequate oral intake Signs/Symptoms as evidenced by 2% unintentional weight loss x 1 week and PO meeting <75% of estimated nutrition needs x 2- 3 weeks. Status Active Problem Recommendation Dietitian Recommendations/Changes Continue 1800 calorie controlled/consistent carbohydrate diet. Continue 120ml glucerna shake 4x daily with medpass. Will order vanilla fortified pudding with dinner tray. Will monitor weight trends. Reviewed and approved by Marita Wu, RD,LD. Weight / BMI Weight Weight: 155 lb 13.869 oz Body Mass Index (BMI) 21.7 ABG / Lab / Microbiology Data 08/05/24 05:20 08/05/24 05:20 Laboratory: Laboratory Results - last 24 hr 08/04/24 15:49: POC Glucose 290 H 08/04/24 21:39: POC Glucose 236 H 08/05/24 05:20: WBC 3.8 L, RBC 3.29 L, Hgb 9.4 L, Hct 29.8 L, MCV 90.6, MCH 28.6, MCHC 31.5 L, RDW Std Deviation 57.1 H, RDW Coeff of Janice 17.2 H, Plt Count 138 L, MPV 9.5, Immature Gran % (Auto) 2.900 H, Neut % (Auto) 60.5, Lymph % (Auto) 30.5, Catron % (Auto) 3.4, Eos % (Auto) 2.4, Baso % (Auto) 0.3, Absolute Neuts (auto) 2.3, Absolute Lymphs (auto) 1.16, Nucleated RBC % 0, Atypical Lymphocytes 1+, Sodium 133 L, Potassium 3.8, Chloride 103, Carbon Dioxide 25.0, Anion Gap 5, BUN 10, Creatinine 0.57 L, Estim Creat Clear Calc 82.24, Est GFR (MDRD) Af Amer 180, Est GFR (MDRD) Non-Af 149, BUN/Creatinine Ratio 17.5, Glucose 88, Calcium 8.1 L, Albumin 2.1 L, Stl Giardia Antigen Cancelled 08/05/24 07:50: POC Glucose 87 08/05/24 11:37: POC Glucose 146 H Microbiology: Microbiology 08/04/24 22:15 Stool Stool Lactoferrin - Final 08/04/24 22:15 Stool Enteric Bacteriology - Final 08/04/24 22:15 Stool Clostridioides difficile (PCR) - Final 07/28/24 05:32 Stool Enteric Bacteriology - Final 07/28/24 05:32 Stool C. difficile GDH Antigen & Toxins - Final 07/28/24 05:32 Stool Clostridioides difficile (PCR) - Final 07/27/24 15:15 Stool Stool Occult Blood (ARNALDO) - Final Occult Blood Positive D/C Instructions DC O2, CPAP, BIPAP Needs Home O2 Discharge instructions: No Meaningful Use Info Meaningful Use Meaningful Use Diagnoses (Choose all that apply): None applicable Ischemic Stroke Statin Dosing Therapy Reference: STATIN DOSE THERAPY REFERENCE: * Patients > 75 years receive moderate or high dose statin therapy. * Patients 75 years or YOUNGER should receive HIGH intensity statin dose unless contraindicated. You will be required to document reason for non-treatment if statin daily dose does not meet guidelines. HIGH DOSE STATIN THERAPY DAILY Atorvastatin > than or = to 40 mg Rosuvastatin > than or = to 20 mg Amlodipine + Atorvastatin > than or = to 2.5/40 mg Ezetimibe + Simvastatin 10/80 mg Simvastatin 80mg Discharge Plan Admission Admit Date/Time: 07/27/24 17:03 Primary Reason for Your Visit: Ibar[place] ulcerative colitis. C. difficile colonization Attending Provider: Lb Hall Primary Care Provider: Reji Levin Consulting Providers: Ronel Lang; Jorge Murillo Discharge Orders/Prescriptions Prescriptions: New folic acid 1 mg Tablet 1 mg PO BREAKFAST Qty: 0 0RF colestipol 1 gram Tablet 1 g PO BID Qty: 0 0RF insulin lispro [Humalog KwikPen Insulin] 100 unit/mL Insulin Pen See Protocol subcut ACHS Qty: 0 0RF Protocol: 1. Sliding Scale Insulin Low Dosing Condition: 150-224 mg/dl = 1 unit Condition: 225-299 mg/dl = 2 units Condition: 300-374 mg/dl = 3 units Condition: 375-449 mg/dl = 4 units Condition: Greater than 449 call physician Protocol Text: Suggested for: - Patients on Total Daily Insulin Dose of 15-27 units - Thin, elderly, renal patients LOW DOSING ALGORITHM vancomycin [Firvanq] 25 mg/mL Recon Soln 125 mg PO Q6 7 Days Qty: 140 0RF prednisone 20 mg Tablet 40 mg PO DAILYCM 30 Days Qty: 0 0RF insulin lispro [Humalog KwikPen Insulin] 100 unit/mL Insulin Pen 10 unit subcut TIDAC Qty: 0 0RF Rx Instructions: Hold if glucose less than 130 mg/dl insulin glargine [Lantus U-100 Insulin] 100 unit/mL solution 8 unit subcut DAILY 30 Days Qty: 10 2RF Rx Instructions: Hold if glucose less than 130 mg/dl Continued albuterol sulfate 90 mcg/actuation HFA aerosol inhaler 1 inh inhalation Q6H PRN (Reason: shortness of breath or wheezing) Qty: 8.5 1RF triamcinolone acetonide 0.5 % cream 1 applic TOPICAL BID Patient Comments: RASH ON LEG simvastatin 20 mg tablet 20 mg PO QHS pregabalin 150 mg capsule 150 mg PO BID pantoprazole 40 mg Tablet,Delayed Release (Dr/Ec) 40 mg PO DAILY Qty: 30 0RF dicyclomine 10 mg Capsule 10 mg PO TIDAC Qty: 60 0RF mesalamine [Pentasa] 500 mg capsule, extended release 500 mg PO BID 30 Days Qty: 60 0RF Changed baclofen 10 mg tablet 5 mg PO TID 30 Days Qty: 0 0RF Patient Comments: take 1 tablet by mouth three times a day Rx Instructions: Hold for lethargy/sedation. Hold for SBP less than 100 mmHg Discontinued metformin 1,000 mg tablet 1,000 mg PO BID prednisone 20 mg tablet 40 mg PO DAILY 14 Days Qty: 28 0RF Referrals / Follow Up: Reji Levin MD [Primary Care Provider] - Guicho Penny DO [Med Staff - Active Staff] - Within 1 Month Jorge Murillo MD [Med Staff - Active Staff] - Within 1 Month (For pancolitis. Referral to tertiary care center for evaluation of total colectomy) Disposition Disposition (needs filled in before D/C Order can be placed): Detention Facility Charges/Coding Visit Charges Inpatient E&M: 61360 Disch Hosp >30min
--- NOTE | 2024-08-05 15:08 | PHA.DC.MR.R ---
Pharmacy [place] Med Reconciliation Pharmacy Service has performed discharge medication reconciliation for this patient. The patient's discharge medication list was reviewed for discrepancies and discrepancies were resolved. Medications at Discharge Home Medications albuterol sulfate 90 mcg/actuation aerosol inhaler 1 inh inhalation Q6H PRN shortness of breath or wheezing #8.5 grams 02/26/21 pregabalin 150 mg capsule 150 mg PO BID . 06/19/24 simvastatin 20 mg tablet 20 mg PO QHS . 06/19/24 triamcinolone acetonide 0.5 % topical cream 1 applic topical BID RASH 06/19/24 dicyclomine 10 mg capsule 10 mg PO TIDAC . #60 caps 07/23/24 mesalamine 500 mg capsule,extended release (Pentasa) 500 mg PO BID pain/inflammation 30 days #60 caps 07/23/24 pantoprazole 40 mg tablet,delayed release 40 mg PO DAILY GERD #30 tabs 07/23/24 baclofen 10 mg tablet 5 mg (1/2 x 10 mg) PO TID pain 30 days #0 tabs 08/05/24 colestipol 1 gram tablet 1 g PO BID #0 tabs 08/05/24 folic acid 1 mg tablet 1 mg PO BREAKFAST #0 tabs 08/05/24 insulin glargine 100 unit/mL subcutaneous solution (Lantus U-100 Insulin) 8 unit (0.08 mL) subcut DAILY 1 month #10 mL 08/05/24 insulin lispro 100 unit/mL subcutaneous pen (Humalog KwikPen (U-100) Insulin) 10 unit (0.1 mL) subcut TIDAC #0 mL 08/05/24 insulin lispro 100 unit/mL subcutaneous pen (Humalog KwikPen (U-100) Insulin) See Protocol subcut ACHS #0 mL 08/05/24 prednisone 20 mg tablet 40 mg (2 x 20 mg) PO DAILYCM 30 days #0 tabs 08/05/24 vancomycin 25 mg/mL oral solution (Firvanq) 125 mg (5 mL) PO Q6 7 days #140 mL 08/05/24
--- NOTE | 2024-08-05 15:26 | CASEMGMT ---
Discharge orders, signed med list, and transport time sent to [facility]. Physicians will transport patient by wheelchair at 6p. Nursing, SW, pt, and his updated. Kaity Ramirez DC Planning Asst.
[2024-08-05 15:30] VITALS: BP 97/54; PULSE 90; RESP 18; TEMP 37.4; O2SAT 98
--- NOTE | 2024-08-05 16:03 | CASEMGMT ---
Patient is ready for discharge. SW completed a 7000 in [facility] system. Physicians will transport patient via wheelchair van. Rachel AMARAL
[2024-08-05] MEDS: Insulin Lispro 100 UNIT/ML INSULN.PEN SC (16:22)
[2024-08-05] MEDS: Insulin Glargine-YFGN 100 UNIT/ML Pen 12 UNIT SC (16:22)
[2024-08-05 16:55] LABS: Bedside Glucose 338 mg/dL (74-106)
--- NOTE | 2024-08-05 17:41 | NURSING ---
Gave report to Sara GREENWOOD at [facility]
[2024-08-07 08:09] LABS: Calprotectin, Stool 3160 ug/g (0-120)
[2024-08-08 10:08] LABS: CMV Acute Antibody IgM < 30.0 AU/mL (0.0-29.9); CMV Antibody IgG > 10.00 U/mL (0.00-0.59); CMV by PCR Positive (Negative)
== END 2024-08-05 20:00 | disposition skilled nursing facility (03) | DRG 385 ==
LOC: ED 17:04 → PCU 17:16
PROVIDERS: Hospitalist; Internal Medicine; Internal Medicine Gastroenterology; Physician Assistant; Admitting Provider Family Medicine; Emergency Provider Emergency Medicine; PCP Family Medicine; Visit Provider Internal Medicine
DX: K51.011 Ulcerative (chronic) pancolitis with rectal bleeding (principal); E43 Unspecified severe protein-calorie malnutrition; D61.818 Other pancytopenia; E87.20 Acidosis, unspecified; E87.1 Hypo-osmolality and hyponatremia; D84.9 Immunodeficiency, unspecified; A04.72 Enterocolitis due to Clostridium difficile, not specified as recurrent; E88.09 Other disorders of plasma-protein metabolism, not elsewhere classified; Z66 Do not resuscitate; E11.9 Type 2 diabetes mellitus without complications; G25.81 Restless legs syndrome; I10 Essential (primary) hypertension; D50.0 Iron deficiency anemia secondary to blood loss (chronic); E86.1 Hypovolemia; I95.1 Orthostatic hypotension; K21.9 Gastro-esophageal reflux disease without esophagitis; E78.5 Hyperlipidemia, unspecified; M19.90 Unspecified osteoarthritis, unspecified site; F10.90 Alcohol use, unspecified, uncomplicated; R62.7 Adult failure to thrive; Z79.52 Long term (current) use of systemic steroids; Z82.5 Family history of asthma and other chronic lower respiratory diseases; Z79.84 Long term (current) use of oral hypoglycemic drugs; Z87.891 Personal history of nicotine dependence; K51.918 Ulcerative colitis, unspecified with other complication; Z68.21 Body mass index [BMI] 21.0-21.9, adult
CPT/HCPCS: 36415; 74177; 80048; 80053; 82040; 82085; 82274; 82550; 82962; 83605; 83615; 83630; 83735; 83993; 84100; 84134; 85025; 85384; 85610; 85652; 85730; 86140; 86644; 86645; 86850; 86900; 86901; 87177; 87209; 87252; 87254; 87493; 87496; 87506; 94668; 97110; 97116; 97162; 97166; 97530; 97535; 97802; 97803; 99285; 99406; P9016; P9047; Q9967; A4216

== ENCOUNTER 2024-08-21 08:34 | Inpatient (IN) | payer OTHER, SELFPAY ==
[2024-08-21] VITALS (25 sets, daily range): BP systolic 84–105; BP diastolic 53–65; PULSE 74–100; RESP 20–36; TEMP 36.4–37; O2SAT 88–99; BMI 21.2; BMI 20.5
--- NOTE | 2024-08-21 08:52 | EKG12_ITS ---
Test Reason : Blood Pressure : */* mmHG Vent. Rate : 95 BPM Atrial Rate : 95 BPM P-R Int : 140 ms QRS Dur : 80 ms QT Int : 362 ms P-R-T Axes : 31 51 43 degrees QTcB Int : 454 ms Normal sinus rhythm Normal ECG Confirmed by MICHAELA BOO, GERONIMO ([id number]), material expeditor CARMELO FOREMAN ([id number]) on 08/23/2024 7:27:24 AM Referred By: AMANDA Confirmed By: GERONIMO JENNINGS MD
[2024-08-21] MEDS: 0.9% Normal Saline (1000mL) 1,000 ML 999 ML IV ×2 (09:05→13:57)
--- NOTE | 2024-08-21 09:07 | EDS_ITS ---
HPI History of Present Illness Chief Complaint: Hypotension Informant: patient and EMS Narrative Narrative: Patient is a 74-year-old male with history of ulcerative colitis, alcohol abuse, C. difficile and GI bleeding as well as arthritis (on chronic high-dose dominic roids) presenting from with nursing facility for hypotension. Patient reportedly had episode of hypotension last night and received a liter of fluid throughout the night. His blood pressure continues to be low. In addition he had a temperature of 100.7 reported. Patient tells me he does not know why he is here. He is coughing and states he is been coughing for weeks. He did not know he had a fever. He has no acute complaints at this time. Patient does have what appears to be a PICC line in his left arm and when asked what he received that he does not know that either. He does report that he continues to have frequent diarrhea. Chart review shows that patient was discharged on 08/05/2024 after a 9-day hospitalization for pancolitis ulcerative colitis with diarrhea with hemato chezia, symptomatic with dizziness lightheadedness. Was given IV Solu-Medrol and Remicade for severe ulcerative colitis and seen by GI as well as started on TPN. Baseline hemoglobin around 8-9. Did receive a blood transfusion on 08/01. [facility] Medical History Weakness Colitis Hypertension Irritable bowel Restless legs Diabetes GERD (gastroesophageal reflux disease) GI bleed Ulcerative colitis Alcohol abuse Arthritis Former smoker High cholesterol Diverticulitis Home Medications ?Medication ?Instructions ?Recorded ?Last Taken ?Type albuterol sulfate 90 mcg/actuation 1 inh inhalation Q6 H PRN shortness 02/26/21 Unknown Rx aerosol inhaler of breath or wheezing #8.5 g isis pregabalin 150 mg capsule 150 mg PO BID . 06/19/2407/09 History simvastatin 20 mg tablet 20 mg PO QHS . 06/19/2407/16 History triamcinolone acetonide 0.5 % 1 applic topical BID CLARITA H 06/19/24 Unknown History topical cream dicyclomine 10 mg capsule 10 mg PO TIDAC . #60 caps 07/27/24 Rx mesalamine 500 mg capsule,extended 500 mg PO BID pain/ inflammation 30 07/23/24 07/27/24 Rx release (Pentasa) days #60 caps pantoprazole 40 mg tablet,delayed 40 mg PO DAILY GERD #30 tabs 07/23/24 07/27/24 Rx release baclofen 10 mg tablet 5 mg (1/2 x 10 mg) PO TID pa in 30 08/05/24 07/27/24 Rx days #0 tabs colestipol 1 gram tablet 1 g PO BID #0 tabs 08/05/24 Unknown Rx folic acid 1 mg tablet 1 mg PO BREAKFAST #0 tabs Unknown Rx insulin glargine 100 unit/mL 8 unit (0.08 mL) subcut D AILY 1 08/05/24 Unknown Rx subcutaneous solution (Lantus month #10 mL U-100 Insulin) insulin lispro 100 unit/mL 10 unit (0.1 mL) subcut TID AC #0 mL 08/05/24 Unknown Rx subcutaneous pen (Humalog KwikPen (U-100) Insulin) insulin lispro 100 unit/mL See Protocol subcut ACHS #0 mL 08/05/24 Unknown Rx subcutaneous pen (Humalog KwikPen (U-100) Insulin) prednisone 20 mg tablet 40 mg (2 x 20 mg) PO DAILYCM 30 08/05/24 Unknown Rx days #0 tabs vancomycin 25 mg/mL oral solution 125 mg (5 mL) PO Q6 7 days #140 mL 08/05/24 Unknown Rx (Firvanq) Allergy/AdvReac Type Severity Reaction Status Date / Time ibuprofen AdvReac Upset Verified 08/21/24 08:35 Stomach Family History Mother COPD (chronic obstructive pulmonary disease) Father Myocardial infarction Surgical History S/P colonoscopy S/P endoscopy Social History household members: spouse Smoking Status: Former smoker alcohol intake: current alcohol intake frequency: 3 or more drinks per day Alcohol type: beer details: Patient states that he drinks a 12 pack/day of 12 ounce beers substance use type: does not use ROS ROS ED Constitutional Constitutional ED: Reports fever(s) Cardiovascular Cardiovascular: Denies chest pain Respiratory/Chest Respiratory/Chest: Reports cough; Denies dyspnea Gastrointestinal Gastrointestinal: Reports diarrhea; Denies abdominal pain or vomiting Genitourinary Genitourinary ED: Denies dysuria Musculoskeletal Musculoskeletal: Denies arthralgias Neurologic Neurologic: Reports weakness Hematologic/Lymphatic Hematologic/Lymphatic: Denies easy bleeding or easy bruising EXAM Physical Exam Const Vital Signs: 08/21/24 08:34 08/21/24 08:34 08/21/24 08:40 Temperature 97.9 F 97.9 F 97.9 F Temperature Source Oral Oral Oral Pulse Rate 100 97 98 Respiratory Rate 32 H 36 H 24 H Respiratory Effort Blood Pressure 87/59 L 84/58 L 91/62 Blood Pressure Mean 68 66 71 Pulse Ox 93 91 90 Oxygen Delivery Method Room Air Room Air Room Air Oxygen Flow Rate (L/min) 08/21/24 08:42 08/21/24 08:51 08/21/24 09:03 Temperature Temperature Source Pulse Rate Respiratory Rate Respiratory Effort Normal Non-Labored Blood Pressure Blood Pressure Mean Pulse Ox 93 92 Oxygen Delivery Method Nasal Cannula Nasal Cannula Oxygen Flow Rate (L/min) 2 08/21/24 09:56 08/21/24 09:56 08/21/24 10:00 Temperature 98 F 98 F Temperature Source Temporal Temporal Pulse Rate 85 85 Respiratory Rate 23 H 25 H Respiratory Effort Blood Pressure 94/65 102/56 L Blood Pressure Mean 74 71 Pulse Ox 88 92 98 Oxygen Delivery Method Nasal Cannula Nasal Cannula Nasal Cannula Oxygen Flow Rate (L/min) 2 4 4 08/21/24 11:00 08/21/24 12:00 08/21/24 12:08 Temperature 98 F Temperature Source Temporal Pulse Rate 88 86 86 Respiratory Rate 25 H 26 H 25 H Respiratory Effort Blood Pressure 89/57 L 96/57 L 96/57 L Blood Pressure Mean 67 70 70 Pulse Ox 99 97 94 Oxygen Delivery Method Nasal Cannula Nasal Cannula Room Air Oxygen Flow Rate (L/min) 4 4 08/21/24 13:00 08/21/24 14:00 08/21/24 15:13 Temperature Temperature Source Pulse Rate 91 95 95 Respiratory Rate 27 H 27 H 25 H Respiratory Effort Blood Pressure 87/54 L 95/58 L 101/57 L Blood Pressure Mean 65 70 71 Pulse Ox 90 95 97 Oxygen Delivery Method Nasal Cannula Nasal Cannula Oxygen Flow Rate (L/min) 4 08/21/24 15:16 Temperature 98.5 F Temperature Source Pulse Rate 95 Respiratory Rate 25 H Respiratory Effort Blood Pressure 101/57 L Blood Pressure Mean 71 Pulse Ox 97 Oxygen Delivery Method Oxygen Flow Rate (L/min) Positive cachectic General Appearance ED: cachectic and NAD Nutritional Appearance: cachectic HEENT Reports dry mucous membranes Mouth ED: Yes dry mucous membranes Mouth: dry mucous membranes Eyes PERRL Neck supple and no JVD Chest Wall inspection of chest normal and palpation of chest normal Resp Resp Narrative: Frequent cough on exam. Coarse breath sounds. No wheezing appreciated. Cardio regular rate and regular rhythm GI normal to inspection, nondistended, normoactive bowel sounds Palpation: soft; Negative for tender or guarding Extremity normal to inspection Neuro Sensorium / Orientation: alert Motor Exam: general weakness Psych mental status grossly normal Skin no rashes or lesions noted and no wounds MDM MDM MDM Narrative Medical decision making narrative: Patient is evaluated for low blood pressure at nurse facility. Patient himself has no complaints does not know why he is in the emergency room. He appears nontoxic but chronically ill-appearing. Blood pressures are soft but his maps remained above 65 in the emergency room. He is afebrile. Sepsis workup is initiated. He is not complain of any pain. Does have a cough. Differential includes sepsis, hypovolemia from persistent diarrhea, recurrent colitis, C. difficile, ROLO, pneumonia, COPD exacerbation Patient is initially given a liter of fluid in the emergency room with some improvement of his blood pressure. Workup shows mostly stable labs. CBC does show anemia but again this is stable. CMP does show new transaminitis which is mild with an AST of 83 and ALT of 130 however his bilirubin is normal. Lactate is elevated 3.0 but this does appear to have some chronic elevation. Question if there is an acute ischemic process going on with his liver versus medication toxicity. Case discussed with hospitalist and will obtain CT of the abdomen pelvis and add on chest to see if there is further cause of his symptoms/infection today as workup at this point is not consistent with an acute infectious etiology. Chest x-ray had not show any acute process on my review as well as with radiology. CT imaging shows chronic infrarenal abdominal aortic aneurysm, pancolitis and patchy infiltrates of the lungs. Patient started on Zosyn in the emergency room. Will be admitted to hospital service and case discussed with Dr. Pollock. Dr. Pollock spoke with GI who is concerned that patient has failed medical treatment this time and needs a referral for colorectal surgery as he might require total colectomy or possible cyclosporine therapy. Case discussed with [facility] Transfer line (there are no beds available at [facility] at this time) and he is up and on the wait list but excepted by Dr. Dyana Moreno, to the ICU. In the meantime patient will go to our ICU until transfer can be arranged. Lab Data Attestation: I reviewed the patient's lab results. Labs: Laboratory Results - last 24 hr 08/21/24 08/21/24 09:28 13:05 WBC 4.6 RBC 3.38 L Hgb 9.4 L Hct 30.1 L MCV 89.1 MCH 27.8 MCHC 31.2 L RDW Std Deviation 53.2 H RDW Coeff of Janice 16.1 H Plt Count 165 MPV 9.3 Immature Gran % (Auto) 0.900 Neut % (Auto) 81.3 H Lymph % (Auto) 15.9 L [place] % (Auto) 1.7 Eos % (Auto) 0.0 Baso % (Auto) 0.2 Absolute Neuts (auto) 3.7 Absolute Lymphs (auto) 0.73 L Nucleated RBC % 0 Differential Comment SCANNED PT 15.1 H INR 1.2 APTT 30.4 Sodium 137 Potassium 3.8 Chloride 108 H Carbon Dioxide 23.0 Anion Gap 6 BUN 11 Creatinine 0.47 L Estim Creat Clear Calc 80.14 Est GFR (MDRD) Af Amer 227 Est GFR (MDRD) Non-Af 188 BUN/Creatinine Ratio 23.6 H Glucose 70 L Lactic Acid 3.0 H* Calcium 7.6 L Total Bilirubin 0.50 AST 83 H ALT 130 H Alkaline Phosphatase 78 Total Protein 5.3 L Albumin 1.2 L Globulin 4.1 Albumin/Globulin Ratio 0.3 L Procalcitonin 0.55 H Urine Color Yellow Urine Clarity Clear Urine pH 6.0 Ur Specific [place] 1.020 Urine Protein 30 H Urine Glucose (UA) Normal Urine Ketones Negative Urine Occult Blood 25 H Urine Nitrite Negative Urine Bilirubin Negative Urine Urobilinogen Normal Ur Leukocyte Esterase 25 H Urine RBC 0 SEEN Urine WBC 0-5 SEEN Ur Squamous Epith Cells 0-5 SEEN Urine Bacteria 0 SEEN Urine Mucus 0 SEEN Radiography Diagnostic Testing: Clinical Impression(s) from Imaging Studies Chest X-Ray 08/21/24 09:35 IMPRESSION: No acute cardiopulmonary process. Reading Location: [facility] Chest/Abdomen/Pelvis CT 08/21/24 14:35 IMPRESSION: Ibarra colitis. Fusiform infrarenal abdominal aortic aneurysm. Mild pulmonary scarring with patchy infiltrates as described. One or more dose reduction techniques were used (e.g., Automated exposure control, adjustment of the mA and/or kV according to patient size, use of iterative reconstruction technique). Reading Location: [facility] Rhythm Strip Rhythm Strip: Sinus Rhythm Rate: 95 Ectopy: None EKG Initial EKG: Attestation: I personally reviewed and interpreted this EKG as follows: Interpretation: Sinus Rhythm Comments: Normal sinus rhythm rate of 95 beats per Normal axis Normal intervals Normal ST segments Management Discussion w/another healthcare provider: Hospitalist Discharge Plan Triage Chief Complaint: Hypotension ED Provider: Francie Luo Dx/Rx/DC Orders Clinical Impression: Ulcerative colitis, Hypotension, Elevated lactic acid level Primary Care Provider: Reji Levin Disposition Disposition: Acute Care [facility]
--- NOTE | 2024-08-21 09:35 | RAD_ITS ---
EXAM: XR Chest, 1 View CLINICAL INDICATION: TECHNIQUE: Frontal view of the chest. COMPARISON: No relevant prior studies available. FINDINGS: LUNGS AND PLEURAL SPACES: Unremarkable. No consolidation. No pneumothorax. HEART: Unremarkable. No cardiomegaly. MEDIASTINUM: Unremarkable. Normal mediastinal contour. BONES/JOINTS: Unremarkable. No acute fracture. RAD/Chest 1 View (Portable) IMPRESSION: No acute cardiopulmonary process. Reading [facility]
[2024-08-21 10:41] LABS: Absolute Lymphocyte Count 0.73 X10^3/uL (0.83-4.51); Absolute Neutrophil Count 3.7 X10^3/uL (2.0-7.7); Basophil# 0.01 X10^3/uL; Basophil% 0.2 % (0-1); Differential Indicated SCAN CRITERIA MET; Hematocrit 30.1 % (40-54); Hemoglobin 9.4 g/dL (13.0-16.5); Lymphocyte # 0.73 X10^3/ul (0.83-4.51); Lymphocyte % 15.9 % (19-41); Mean Corp Hgb Conc 31.2 g/dL (32-36); Mean Corpuscular Hgb 27.8 pg (27.0-32.0); Mean Corpuscular Volume 89.1 fL (80-94); Mean Platelet Vol. 9.3 fl (6.2-12.0); Monocyte# 0.08 X10^3/uL; Monocyte% 1.7 % (0-10); NRBC Flagged by Analyzer 0 % (0-5); Neutrophil # 3.72 X10^3/uL (2.7-7.7); Neutrophil % 81.3 % (47-70); POSITIVE MORPHOLOGY YES; Platelet Count 165 K/mm3 (150-450); RBC Distribution Width CV 16.1 % (11.6-14.6); RBC Distribution Width SD 53.2 fl (35.1-43.9); Red Blood Count 3.38 M/mm3 (4.6-6.2); White Blood Count 4.6 K/mm3 (4.4-11.0)
[2024-08-21 10:56] LABS: International Normalized Ratio 1.2; Prothrombin Time (Protime)PT. 15.1 SECONDS (11.7-14.9)
[2024-08-21 10:57] LABS: Partial Thromboplast Time 30.4 Seconds (24.1-36.2)
[2024-08-21 11:01] LABS: Differential Comment SCANNED
[2024-08-21 11:08] LABS: ALB/GLOB Ratio 0.3 RATIO (0.9-2.4); AST(SGOT) 83 U/L (15-37); Alanine Aminotransfer ALT/SGPT 130 U/L (16-61); Albumin, Serum 1.2 g/dL (3.2-5.0); Alkaline Phosphatase 78 U/L (45-117); Anion Gap 6 (5-15); BUN 11 mg/dL (7-18); BUN/Creat Ratio 23.6 RATIO (10-20); Calcium,Total 7.6 mg/dL (8.5-10.1); Chloride 108 mmol/L (98-107); Creatinine, Serum 0.47 mg/dL (0.70-1.30); EST Glomerular Filtration Rate 188 mL/min (>60); Est Glom Filt Rate - Afr Amer 227 mL/min (>60); Estimated Creatinine Clearance 80.14 ml/min; Globulin 4.1 g/dL (2.2-4.2); Glucose 70 mg/dL (74-106); Potassium 3.8 mmol/L (3.5-5.1); Protein, Total 5.3 g/dL (6.4-8.2); Sodium Level 137 mmol/L (136-145)
[2024-08-21 13:17] LABS: Bacteria 0 SEEN /hpf (None Seen); Mucous, Urine 0 SEEN /hpf (<or=2+); Red Blood Cells-Urine 0 SEEN /hpf (0-5)
[2024-08-21 13:22] LABS: Color, Urine Yellow (Yellow); Glucose, Dipstick Normal (Normal); Ketone-Dipstick Negative (Negative); Leukocyte Esterase-Dipstick 25 /ul (Negative); Nitrite-Dipstick Negative (Negative); Occult Blood-Urine 25 /ul (Negative); Protein-Dipstick 30 mg/dl (Negative); Urine Bilirubin Dipstick Negative (Negative); Urine Clarity Clear (Clear); Urine Urobilinogen Normal (Normal)
[2024-08-21 13:41] LABS: Squamous Epithelial Cells - UA 0-5 SEEN /hpf (0-5); White Blood Cells 0-5 SEEN /hpf (0-5)
[2024-08-21 14:33] LABS: Reflex Lactate? Y
--- NOTE | 2024-08-21 14:35 | CT_ITS ---
PROCEDURE: CT CHEST, ABD, PEL W/CONTRAST REASON FOR EXAM: Hypotension. Productive cough. Alcohol abuse. TECHNIQUE: Chest, abdomen and pelvis CT with intravenous contrast. CONTRAST: 100 cc of Isovue-300. COMPARISON: Comparison is made with prior study dated February 25, 2021. FINDINGS: CT CHEST: Hardware: None. Lymph nodes: No mediastinal hilar or axillary lymphadenopathy. Heart and Vasculature: Coronary artery calcification. Atherosclerotic calcifications of the thoracic aorta. Pulmonary arteries are unremarkable. Lungs and Airways: Emphysema this change with scarring. Focal area of ground- glass appearance most likely representing early infiltrate in the posterior segment of the left upper lobe as well as in the medial aspect of the right middle lobe and right lower lobe. Pleura: No pleural effusion. No pneumothorax. Bones: Degenerative changes of the thoracic spine. CT ABDOMEN/PELVIS: Liver: Unremarkable. Gallbladder: Unremarkable. Spleen: Unremarkable. Pancreas: Unremarkable. Adrenals: Left adrenal nodule consistent with an adenoma this measures 1 cm. Kidneys: Unremarkable. Bladder: Distended urinary bladder. Bowel: Findings suggestive of colitis involving the ascending colon and transverse colon. There is also evidence of inflammatory changes in the descending colon. Down to the rectum. This is suggestive of reid colitis. Appendix: The appendix is not identified. There is no inflammatory process identified in the right lower quadrant to suggest appendicitis. Lymph nodes: No suspicious lymph node enlargement. Vasculature: Fusiform infrarenal abdominal aortic aneurysm with a transverse dimension of 4.4 cm. Mural thrombus is seen. Peritoneum / Retroperitoneum: No ascites. No free air. Bones: Degenerative changes of the spine. CT/CT Chest, Abd, Pel w/Contrast IMPRESSION: Reid colitis. Fusiform infrarenal abdominal aortic aneurysm. Mild pulmonary scarring with patchy infiltrates as described. One or more dose reduction techniques were used (e.g., Automated exposure contr ol, adjustment of the mA and/or kV according to patient size, use of iterative reconstruction technique). Reading Location: [facility]
[2024-08-21 15:09] LABS: Procalcitonin 0.55 ng/mL (0.00-0.09)
[2024-08-21] MEDS: Piperacil/Tazobactam 3.375 GM in 0.9% Normal Saline (50mL MB+) 50 ML IV (15:50)
--- NOTE | 2024-08-21 15:56 | PCM.HP.STD ---
HPI - General General Date of Admission: 08/21/24 Date of Service: 08/21/24 Chief Complaint: Bloody diarrhea, hypotension HPI Narrative NISHA MARTINS, is a 74-year-old male history of ulcerative colitis, GERD, diabetes, C. difficile who presented [facility] ED 08/21/2024 from nursing facility for hypotension. Had an episode of hypotension last night and received a liter of IV fluid however blood pressure continues to be low. Additionally temperature of 100.7 reported from last night. Patient has been coughing and has been feeling weak for weeks. Patient had been discharged from our institution 08/09/2024 after a 9-day hospitalization for pancolitis/ulcerative colitis with diarrhea and hematochezia/symptomatic hypotension and was given IV Solu-Medrol and Remicade for severe ulcerative colitis, was also seen by GI and started on TPN. Required blood transfusion 08/01. In the ED patient with initial blood pressure of 87/59 with respiratory rate of 32 and pulse ox 93% on room air, O2 sat decreased to 88% requiring patient to be on 2 L of O2. BMP and CBC similar to previous. Patient bolused with IV fluids and CT chest, abdomen, pelvis obtained which showed pancolitis and mild pulmonary scarring with patchy infiltrates. Systolic pressures improved and in the 90s after fluid resuscitation. Hospitalist contacted for admission. Patient evaluated at bedside, reports he has been coughing for a couple of weeks but denies any shortness of breath, no abdominal pain but reports he still has 5 or 6 episodes of diarrhea daily with blood in his stool this has been overall unchanged but persistent. Other than feeling somewhat weak all over he denies any other focal complaints. Discussed patient with Dr. Penny given his continued pancolitis with multiple episodes of bloody diarrhea daily and hypotension/volume depletion that is at least in part due to that, patient has been admitted here multiple times for the same reason without any significant improvement and continues to clinically worsen overall, it was recommended the patient be transferred to facility where he could be evaluated for colectomy or at least diverting ileostomy or for alternative treatments that we would not be able to provide at our hospital at this time. Discussed with ED physician who initiated transfer. Due to no bed available in the near future patient will be admitted pending bed availability at outlying facility. [facility] Medical History Weakness Colitis Hypertension Irritable bowel Restless legs Diabetes GERD (gastroesophageal reflux disease) GI bleed Ulcerative colitis Alcohol abuse Arthritis Former smoker High cholesterol Diverticulitis Home Medications ?Medication ?Instructions ?Recorded ?Last Taken ?Type albuterol sulfate 90 mcg/actuation 1 inh inhalation Q6H PRN shortness 02/26/21 Unknown Rx aerosol inhaler of breath or wheezing #8.5 grams pregabalin 150 mg capsule 150 mg PO BID . 06/19/24 07/27/24 History simvastatin 20 mg tablet 20 mg PO QHS . 06/19/24 07/26/24 History triamcinolone acetonide 0.5 % 1 applic topical BID RASH 06/19/24 Unknown History topical cream dicyclomine 10 mg capsule 10 mg PO TIDAC . #60 caps 07/23/24 07/27/24 Rx mesalamine 500 mg capsule,extended 500 mg PO BID pain/inflammation 30 07/23/24 07/27/24 Rx release (Pentasa) days #60 caps pantoprazole 40 mg tablet,delayed 40 mg PO DAILY GERD #30 tabs 07/23/24 07/27/24 Rx release baclofen 10 mg tablet 5 mg (1/2 x 10 mg) PO TID pain 30 08/05/24 07/27/24 Rx days #0 tabs colestipol 1 gram tablet 1 g PO BID #0 tabs 08/05/24 Unknown Rx folic acid 1 mg tablet 1 mg PO BREAKFAST #0 tabs 08/05/24 Unknown Rx insulin glargine 100 unit/mL 8 unit (0.08 mL) subcut DAILY 1 08/05/24 Unknown Rx subcutaneous solution (Lantus month #10 mL U-100 Insulin) insulin lispro 100 unit/mL 10 unit (0.1 mL) subcut TIDAC #0 mL 08/05/24 Unknown Rx subcutaneous pen (Humalog KwikPen (U-100) Insulin) insulin lispro 100 unit/mL See Protocol subcut ACHS #0 mL 08/05/24 Unknown Rx subcutaneous pen (Humalog KwikPen (U-100) Insulin) prednisone 20 mg tablet 40 mg (2 x 20 mg) PO DAILYCM 30 08/05/24 Unknown Rx days #0 tabs vancomycin 25 mg/mL oral solution 125 mg (5 mL) PO Q6 7 days #140 mL 08/05/24 Unknown Rx (Firvanq) Allergy/AdvReac Type Severity Reaction Status Date / Time ibuprofen AdvReac Upset Verified 08/21/24 08:35 Stomach Family History Mother COPD (chronic obstructive pulmonary disease) Father Myocardial infarction Surgical History S/P colonoscopy S/P endoscopy Social History household members: spouse Smoking Status: Former smoker alcohol intake: current alcohol intake frequency: 3 or more drinks per day Alcohol type: beer details: Patient states that he drinks a 12 pack/day of 12 ounce beers substance use type: does not use ROS ROS Narrative General: Reportedly overnight had a fever HENT: Denies headache, denies stuffy nose, denies sore throat EYES: Denies changes in vision Resp: Slight cough over the past week or 2, denies shortness of breath Cardiac: Denies chest pain GI: Denies abdominal pain, persistent diarrhea 5-6 episodes a day with blood in stool : Denies changes in urination Extremity: Denies swelling MSK: Some generalized weakness Neuro: Denies any numbness/tingling Heme: Denies any bleeding or bruising Skin: Denies rashes Psychiatric: No complaints voiced Vital Signs Vital Signs Vital Signs: 08/21/24 08:34 08/21/24 08:34 08/21/24 08:40 Temperature 97.9 F 97.9 F 97.9 F Temperature Source Oral Oral Oral Pulse Rate 100 97 98 Respiratory Rate 32 H 36 H 24 H Respiratory Effort Blood Pressure 87/59 L 84/58 L 91/62 Blood Pressure Mean 68 66 71 Pulse Ox 93 91 90 Oxygen Delivery Method Room Air Room Air Room Air Oxygen Flow Rate (L/min) 08/21/24 08:42 08/21/24 08:51 08/21/24 09:03 Temperature Temperature Source Pulse Rate Respiratory Rate Respiratory Effort Normal Non-Labored Blood Pressure Blood Pressure Mean Pulse Ox 93 92 Oxygen Delivery Method Nasal Cannula Nasal Cannula Oxygen Flow Rate (L/min) 2 08/21/24 09:56 08/21/24 09:56 08/21/24 10:00 Temperature 98 F 98 F Temperature Source Temporal Temporal Pulse Rate 85 85 Respiratory Rate 23 H 25 H Respiratory Effort Blood Pressure 94/65 102/56 L Blood Pressure Mean 74 71 Pulse Ox 88 92 98 Oxygen Delivery Method Nasal Cannula Nasal Cannula Nasal Cannula Oxygen Flow Rate (L/min) 2 4 4 08/21/24 11:00 08/21/24 12:00 08/21/24 12:08 Temperature 98 F Temperature Source Temporal Pulse Rate 88 86 86 Respiratory Rate 25 H 26 H 25 H Respiratory Effort Blood Pressure 89/57 L 96/57 L 96/57 L Blood Pressure Mean 67 70 70 Pulse Ox 99 97 94 Oxygen Delivery Method Nasal Cannula Nasal Cannula Room Air Oxygen Flow Rate (L/min) 4 4 08/21/24 13:00 08/21/24 14:00 08/21/24 15:13 Temperature Temperature Source Pulse Rate 91 95 95 Respiratory Rate 27 H 27 H 25 H Respiratory Effort Blood Pressure 87/54 L 95/58 L 101/57 L Blood Pressure Mean 65 70 71 Pulse Ox 90 95 97 Oxygen Delivery Method Nasal Cannula Nasal Cannula Oxygen Flow Rate (L/min) 4 08/21/24 15:16 Temperature 98.5 F Temperature Source Pulse Rate 95 Respiratory Rate 25 H Respiratory Effort Blood Pressure 101/57 L Blood Pressure Mean 71 Pulse Ox 97 Oxygen Delivery Method Oxygen Flow Rate (L/min) Weight Weight: 68.9 kg Body Mass Index (BMI) 21.2 Physical Exam Narrative General: Alert, oriented, no apparent distress HEENT: Atraumatic, normocephalic Eyes: Anicteric, normal conjunctiva, extraocular movements grossly intact Neck: Supple Respiratory: No overt wheezes or rhonchi, is mildly tachypneic Cardiovascular: Regular rate and rhythm GI: Soft, nontender, nondistended Extremities: No edema Musculoskeletal: Moving all extremities Neuro: No overt focal neurological deficits Skin: No rashes appreciated Psych: Cooperative Results Lab / Micro Data 08/21/24 09:28 08/21/24 09:28 Labs: Laboratory Results - last 24 hr 08/21/24 09:28: WBC 4.6, RBC 3.38 L, Hgb 9.4 L, Hct 30.1 L, MCV 89.1, MCH 27.8, MCHC 31.2 L, RDW Std Deviation 53.2 H, RDW Coeff of Janice 16.1 H, Plt Count 165, MPV 9.3, Immature Gran % (Auto) 0.900, Neut % (Auto) 81.3 H, Lymph % (Auto) 15.9 L, [place] % (Auto) 1.7, Eos % (Auto) 0.0, Baso % (Auto) 0.2, Absolute Neuts (auto) 3.7, Absolute Lymphs (auto) 0.73 L, Nucleated RBC % 0, Differential Comment SCANNED, PT 15.1 H, INR 1.2, APTT 30.4, Sodium 137, Potassium 3.8, Chloride 108 H, Carbon Dioxide 23.0, Anion Gap 6, BUN 11, Creatinine 0.47 L, Estim Creat Clear Calc 80.14, Est GFR (MDRD) Af Amer 227, Est GFR (MDRD) Non-Af 188, BUN/Creatinine Ratio 23.6 H, Glucose 70 L, Lactic Acid 3.0 H*, Calcium 7.6 L, Total Bilirubin 0.50, AST 83 H, ALT 130 H, Alkaline Phosphatase 78, Total Protein 5.3 L, Albumin 1.2 L, Globulin 4.1, Albumin/Globulin Ratio 0.3 L, Procalcitonin 0.55 H 08/21/24 13:05: Urine Color Yellow, Urine Clarity Clear, Urine pH 6.0, Ur Specific [place] 1.020, Urine Protein 30 H, Urine Glucose (UA) Normal, Urine Ketones Negative, Urine Occult Blood 25 H, Urine Nitrite Negative, Urine Bilirubin Negative, Urine Urobilinogen Normal, Ur Leukocyte Esterase 25 H, Urine RBC 0 SEEN, Urine WBC 0-5 SEEN, Ur Squamous Epith Cells 0-5 SEEN, Urine Bacteria 0 SEEN, Urine Mucus 0 SEEN Micro: Microbiology 08/21/24 09:10 Mucosa - Nose SARS-CoV-2, Influenza & RSV (PCR) - Final Imaging Radiology Impression Chest X-Ray 08/21/24 09:35 IMPRESSION: No acute cardiopulmonary process. Reading Location: [facility] Chest/Abdomen/Pelvis CT 08/21/24 14:35 IMPRESSION: Ibarra colitis. Fusiform infrarenal abdominal aortic aneurysm. Mild pulmonary scarring with patchy infiltrates as described. One or more dose reduction techniques were used (e.g., Automated exposure control, adjustment of the mA and/or kV according to patient size, use of iterative reconstruction technique). Reading Location: [id number] Assessment & Plan Assessment/Plan (1) Hypotension: PLAN: Plan # Suspect sepsis -Patient tachypneic with respiratory rate in the 30s and hypotensive with blood pressure of 87/59 on presentation with O2 sat dropped to 88% necessitating O2 and had temperature overnight of 100.7, Pro-Sina some mildly elevated -Additionally patient found to have lactic acid of 3 -Patient bolused 30 cc/kg -Patient to be admitted to the ICU, bottom stainer consult -Chest x-ray no acute pulmonary process -UA not overtly infectious -CT chest/abdomen/pelvis with patchy infiltrates and pancolitis -Suspect GI or pulmonary source -Blood and urine culture sent -COVID/flu/RSV negative but will check respiratory viral panel, check sputum culture if able -Check urinary antigens -Will check stool studies -Discussed with GI regarding empiric antibiotics due to concern for infection but history of C. difficile and it was recommended to start empiric oral vancomycin when initiating IV antibiotics -Will cover patient broadly with Zosyn in addition to the oral vancomycin -Given patient's steroid use suspect that he is relatively adrenal insufficient, will start stress dose steroids # Continued bloody diarrhea in context of severe ulcerative colitis -Pancolitis redemonstrated on CT scan -Patient has received Remicade and high-dose steroids with continued colitis and symptoms -Discussed with GI and patient has been refractory to our management and is outside the scope of management at our hospital and is recommended to be transferred for further management whether that be medical, or surgical evaluation for colectomy or diverting ileostomy -Transfer initiated, patient accepted at [facility] But is awaiting bed and is expected to take greater than 6 hours so patient will be admitted while awaiting bed availability -IV fluids -Check stool studies -GI consult while awaiting transfer # Recent C. difficile infection -Patient had been discharged on vancomycin with completion date 08/12 -Repeating stool studies -Given patient is being started on antibiotics and with his history he was recommended to start oral vancomycin #Type 2 diabetes mellitus -Glucose checks and sliding scale insulin -Hold long-acting insulin given patient's glucose of 70 #GERD -Continue PPI #DVT ppx: JAZIELs Angelia Pollock MD Time spent in the patient's overall evaluation, decision-making process, review of diagnostic data, adjustment of management, discussion with other providers, nursing and ancillary staff involved in patient's care documentation, 80 Minutes Charges/Coding Visit Charges Inpatient E&M: 05392 Init Hosp L3
--- NOTE | 2024-08-21 16:01 | ED.RN ---
ACCEPTED AT [facility] TO THE ICU@1556 BUT IT HAS A WAIT LIST. WILL BE ADMITTED TO OUR ICU UNTIL BED IS AVAILABLE.
[2024-08-21] MEDS: Vancomycin 125 MG/5 ML Susp PO.SYRINGE PO ×2 (16:34→18:14)
[2024-08-21] MEDS: 0.9% Normal Saline (1000mL) 1,000 ML 75 ML IV (17:29)
[2024-08-21] MEDS: Hydrocortisone Sod Succinate 100 MG/2 ML Vial 50 MG IV (18:14)
[2024-08-21 18:50] LABS: Bedside Glucose 56 mg/dL (74-106)
[2024-08-21 18:50] LABS: Bedside Glucose 47 mg/dL (74-106)
[2024-08-21 19:28] LABS: Bedside Glucose 70 mg/dL (74-106)
[2024-08-21 20:09] LABS: Lactic Acid 5.9 mmol/L (0.4-1.9)
[2024-08-21] MEDS: Pregabalin 75 MG Capsule 150 MG PO (20:38)
[2024-08-21] MEDS: Atorvastatin Calcium 10 MG Tablet PO (20:38)
[2024-08-21] MEDS: Colestipol 1 GM TABLET PO (20:39)
[2024-08-21] MEDS: MESALAMINE 400 MG CAPSULE.DR PO (20:39)
[2024-08-21] MEDS: Vancomycin HCl 1,750 MG in 0.9% Normal Saline (500mL Bag) 500 ML 250 MG IV (20:50)
[2024-08-21 21:16] LABS: Bedside Glucose 173 mg/dL (74-106)
--- NOTE | 2024-08-21 21:45 | PCM.RX.CS ---
Consult Antibiotic Management Pharmacy has been consulted to manage selected antibiotic: Vancomycin Type of Intervention Type of Consult: New start Labs Labs: Sodium 137 mmol/L (136-145) 08/21/24 09:28 Potassium 3.8 mmol/L (3.5-5.1) 08/21/24 09:28 Chloride 108 mmol/L (98-107) H 08/21/24 09:28 Carbon Dioxide 23.0 mmol/L (21.0-32.0) 08/21/24 09:28 Anion Gap 6 (5-15) 08/21/24 09:28 BUN 11 mg/dL (7-18) 08/21/24 09:28 Creatinine 0.47 mg/dL (0.70-1.30) L 08/21/24 09:28 Est GFR (MDRD) Af Amer 227 mL/min (>60) 08/21/24 09:28 Est GFR (MDRD) Non-Af 188 mL/min (>60) 08/21/24 09:28 BUN/Creatinine Ratio 23.6 RATIO (10-20) H 08/21/24 09:28 Glucose 70 mg/dL (74-106) L 08/21/24 09:28 Microbiology Microbiology: Microbiology 08/21/24 17:25 Mucosa - Nose Respiratory Panel (PCR) - Final 08/21/24 09:10 Mucosa - Nose SARS-CoV-2, Influenza & RSV (PCR) - Final Dosing Weight Weight used for dosin.9 kg Estimated Creatinine Clearance Estimated Creatinine Clearance: 80.14 Goal Trough Goal Trough: 15-20 mcg/mL Pharmacy Plan for Drug Dosing Pharmacy Plan for Drug Dosing: Pharmacy Service will continue to monitor and adjust dosing as required. LOADING DOSE 17MG GIVEN @ 2049. START 1250MG Q12H AND DRAW TROUGH PRIOR TO 4TH DOSE Follow-Up Labs Follow-Up Labs: Trough: Vancomycin Date/Time Labs Ordered Labs to be done on [date and time ordered]: 08/23 @ 0830
[2024-08-22] VITALS (15 sets, daily range): BP systolic 78–108; BP diastolic 47–63; PULSE 63–78; RESP 15–27; TEMP 36.1–36.8; O2SAT 87–100; BMI 20.5
[2024-08-22] MEDS: Hydrocortisone Sod Succinate 100 MG/2 ML Vial 50 MG IV ×4 (00:06→17:00)
[2024-08-22] MEDS: Vancomycin 125 MG/5 ML Susp PO.SYRINGE PO ×4 (00:06→17:02)
[2024-08-22] MEDS: Piperacil/Tazobactam 3.375 GM in 0.9% Normal Saline (50mL MB+) 50 ML IV ×3 (00:07→15:20)
[2024-08-22 03:51] LABS: Absolute Lymphocyte Count 0.52 X10^3/uL (0.83-4.51); Absolute Neutrophil Count 2.6 X10^3/uL (2.0-7.7); Basophil# 0.01 X10^3/uL; Basophil% 0.3 % (0-1); Hematocrit 24.8 % (40-54); Hemoglobin 7.8 g/dL (13.0-16.5); Lymphocyte # 0.52 X10^3/ul (0.83-4.51); Lymphocyte % 15.9 % (19-41); Mean Corp Hgb Conc 31.5 g/dL (32-36); Mean Corpuscular Hgb 27.6 pg (27.0-32.0); Mean Corpuscular Volume 87.6 fL (80-94); Mean Platelet Vol. 9.1 fl (6.2-12.0); NRBC Flagged by Analyzer 0 % (0-5); Neutrophil # 2.61 X10^3/uL (2.7-7.7); Neutrophil % 79.6 % (47-70); POSITIVE DIFFERENTIAL YES; POSITIVE MORPHOLOGY YES; Platelet Count 134 K/mm3 (150-450); RBC Distribution Width CV 16.1 % (11.6-14.6); RBC Distribution Width SD 51.7 fl (35.1-43.9); Red Blood Count 2.83 M/mm3 (4.6-6.2); White Blood Count 3.3 K/mm3 (4.4-11.0)
[2024-08-22 03:59] LABS: Differential Indicated SCAN CRITERIA MET
[2024-08-22 04:11] LABS: ALB/GLOB Ratio 0.3 RATIO (0.9-2.4); AST(SGOT) 54 U/L (15-37); Alanine Aminotransfer ALT/SGPT 99 U/L (16-61); Albumin, Serum 1.1 g/dL (3.2-5.0); Alkaline Phosphatase 83 U/L (45-117); Anion Gap 4 (5-15); BUN 7 mg/dL (7-18); BUN/Creat Ratio 16.1 RATIO (10-20); Chloride 105 mmol/L (98-107); Creatinine, Serum 0.44 mg/dL (0.70-1.30); EST Glomerular Filtration Rate 203 mL/min (>60); Est Glom Filt Rate - Afr Amer 246 mL/min (>60); Estimated Creatinine Clearance 77.82 ml/min; Globulin 3.6 g/dL (2.2-4.2); Glucose 117 mg/dL (74-106); Lactic Acid 1.8 mmol/L (0.4-1.9); Potassium 3.7 mmol/L (3.5-5.1); Protein, Total 4.7 g/dL (6.4-8.2); Sodium Level 134 mmol/L (136-145)
--- NOTE | 2024-08-22 07:02 | CON.PCM.CC_ITS ---
Assessment & Plan Assessment/Plan (1) Ulcerative colitis: PLAN: Plan RECOMMENDATIONS: 1. Continue empiric antimicrobials. 2. Stress dose steroids as ordered. 3. Continue PPI therapy. 4. Continue scheduled midodrine. 5. Send type and screen. 6. Continue to monitor H&H and transfuse if hemoglobin drops below 7 g/dL. 7. Awaiting transfer to [facility], pending bed availability. IMPRESSIONS: 1. Sepsis The patient presented to the hospital with sepsis due to suspected pneumonia + C. difficile colitis with acute sepsis related organ dysfunction as evidenced by hypotension and lactic acidemia. The patient did receive IV fluid resuscitation, and at the present time, is hemodynamically stable on scheduled midodrine. Given his utilization of outpatient corticosteroids, the patient was started on stress dose steroids when admitted to the hospital. Plan to continue antimicrobials as ordered. 2. Ulcerative colitis flare with anemia CT imaging of the abdomen demonstrated evidence of pancolitis. The patient has received Remicade and high-dose steroids in the past with continued colitis and symptoms. Therefore, gastroenterology is currently recommending transfer to tertiary care facility for surgical evaluation for colectomy or diverting ileostomy. Although the patient has been accepted at [facility], we are still awaiting bed availability. Plan to send type and screen today. Continue to monitor H&H and transfuse if hemoglobin drops below 7 g/dL. 3. History of GERD/neuropathy/hyperlipidemia/diabetes mellitus Complicates care, management, recovery and prognosis. Continue sliding scale insulin coverage for now. This note was generated with [employer] dictation software. It may contain incorrect words, spelling, and punctuation that were not noted in checking the note before signing. HPI Consult Data Date of Consult: 08/22/24 HPI Narrative Reason for Consultation: Sepsis HPI Narrative: The patient is a 74-year-old male, with a history as outlined below, who presented to the emergency department on August 21 with hypotension and bloody diarrhea. The patient has a known history of ulcerative colitis, GERD and diabetes mellitus. The patient was recently admitted to the hospital July 27 through in the setting of ulcerative colitis with diarrhea and hematochezia. The patient was medically managed by gastroenterology and placed on TPN for nutritional support. On presentation to the emergency department, the patient was documented to be afebrile and had a presenting blood pressure of 91/62 mmHg. Laboratory evaluation was notable for a normal white blood cell count with a hemoglobin of 9.4 g/dL. Platelet count was normal at 165,000. Chemistry profile was unremarkable. Lactate was elevated at 3.0. Urine analysis was unremarkable. The patient did ultimately test positive for C. difficile colitis. Respiratory viral panel was negative. Blood and urine cultures were collected. CT chest/abdomen/pelvis demonstrated evidence of pancolitis with patchy infiltrates in the left upper and right lower lobe. The patient did receive supplemental IV fluid hydration and was initiated on antimicrobials. He was subsequently admitted to the medical intensive care unit for further management. Given the patient's chronic use of prednisone, the patient was started on stress dose steroids as well. The case was apparently discussed with gastroenterology, who ultimately recommended that the patient be transferred to a tertiary care facility given the refractory nature of the patient's ulcerative colitis. However, we are still awaiting bed availability. As of this morning, the patient's hemoglobin is dropped to 7.8 g/dL. Platelet count has dropped to 134,000. Lactic acidosis has resolved this morning. The patient has remained hemodynamically stable, without the need for vasopressor support. He does report ongoing bloody diarrhea. FORMERLY [facility], [facility] Medical History Weakness Colitis Hypertension Irritable bowel Restless legs Diabetes GERD (gastroesophageal reflux disease) GI bleed Ulcerative colitis Alcohol abuse Arthritis Former smoker High cholesterol Diverticulitis Home Medications ?Medication ?Instructions ?Recorded ?Last Taken ?Type albuterol sulfate 90 mcg/actuation 1 inh inhalation Q6 H PRN shortness 02/26/21 Unknown Rx aerosol inhaler of breath or wheezing #8.5 g isis pregabalin 150 mg capsule 150 mg PO BID . 06/19/2407/09 History simvastatin 20 mg tablet 20 mg PO QHS . 06/19/2407/16 History triamcinolone acetonide 0.5 % 1 applic topical BID CLARITA H 06/19/24 Unknown History topical cream dicyclomine 10 mg capsule 10 mg PO TIDAC . #60 caps 07/27/24 Rx mesalamine 500 mg capsule,extended 500 mg PO BID pain/ inflammation 30 07/23/24 07/27/24 Rx release (Pentasa) days #60 caps pantoprazole 40 mg tablet,delayed 40 mg PO DAILY GERD #30 tabs 07/23/24 07/27/24 Rx release baclofen 10 mg tablet 5 mg (1/2 x 10 mg) PO TID pa in 08/05/24 07/27/24 Rx days #0 tabs colestipol 1 gram tablet 1 g PO BID #0 tabs 08/05/24 Unknown Rx folic acid 1 mg tablet 1 mg PO BREAKFAST #0 tabs Unknown Rx insulin glargine 100 unit/mL 8 unit (0.08 mL) subcut D AILY 1 08/05/24 Unknown Rx subcutaneous solution (Lantus month #10 mL U-100 Insulin) insulin lispro 100 unit/mL 10 unit (0.1 mL) subcut TID AC #0 mL 08/05/24 Unknown Rx subcutaneous pen (Humalog KwikPen (U-100) Insulin) insulin lispro 100 unit/mL See Protocol subcut ACHS #0 mL 08/05/24 Unknown Rx subcutaneous pen (Humalog KwikPen (U-100) Insulin) prednisone 20 mg tablet 40 mg (2 x 20 mg) PO DAILYCM 30 08/05/24 Unknown Rx days #0 tabs vancomycin 25 mg/mL oral solution 125 mg (5 mL) PO Q6 7 days #140 mL 08/05/24 Unknown Rx (Firvanq) Allergy/AdvReac Type Severity Reaction Status Date / Time ibuprofen AdvReac Upset Verified 08/21/24 08:35 Stomach Family History Mother COPD (chronic obstructive pulmonary disease) Father Myocardial infarction Surgical History S/P colonoscopy S/P endoscopy Social History household members: spouse Smoking Status: Former smoker alcohol intake: current alcohol intake frequency: 3 or more drinks per day Alcohol type: beer details: Patient states that he drinks a 12 pack/day of 12 ounce beers substance use type: does not use ROS ROS Narrative 10 systems were reviewed with pertinent positives as noted in the HPI above. Physical Exam Const alert and no apparent distress Constitutional Narrative: Thin rather frail in appearance. General Appearance: cooperative HEENT normocephalic and head/scalp atraumatic Eyes PERRL, EOMs intact bilaterally and conjunctivae normal Neck supple General: trachea midline Chest inspection of chest normal Resp normal respiratory effort Auscultation: Negative for rales, rhonchi or wheezes Cardio regular rate and regular rhythm GI soft to palpation and non-tender Extremity no clubbing, cyanosis or edema Skin no rashes or lesions noted Neuro CN's II-XII intact bilaterally, moves all extremities and no focal motor deficits Psych cooperative and affect normal Lab / Micro Data 08/22/24 03:30 08/22/24 03:30 Labs: Laboratory Results - last 24 hr 08/21/24 09:28: WBC 4.6, RBC 3.38 L, Hgb 9.4 L, Hct 30.1 L, MCV 89.1, MCH 27.8, MCHC 31.2 L, RDW Std Deviation 53.2 H, RDW Coeff of Janice 16.1 H, Plt Count 165, MPV 9.3, Immature Gran % (Auto) 0.900, Neut % (Auto) 81.3 H, Lymph % (Auto) 15.9 L, [place] % (Auto) 1.7, Eos % (Auto) 0.0, Baso % (Auto) 0.2, Absolute Neuts (auto) 3.7, Absolute Lymphs (auto) 0.73 L, Nucleated RBC % 0, Differential Comment SCANNED, PT 15.1 H, INR 1.2, APTT 30.4, Sodium 137, Potassium 3.8, Chloride 108 H, Carbon Dioxide 23.0, Anion Gap 6, BUN 11, Creatinine 0.47 L, Estim Creat Clear Calc 80.14, Est GFR (MDRD) Af Amer 227, Est GFR (MDRD) Non-Af 188, B UN/Creatinine Ratio 23.6 H, Glucose 70 L, Lactic Acid 3.0 H*, Calcium 7.6 L, Total Bilirubin 0.50, AST 83 H, ALT 130 H, Alkaline Phosphatase 78, Total Protein 5.3 L, Albumin 1.2 L, Globulin 4.1, Albumin/Globulin Ratio 0.3 L, P rocalcitonin 0.55 H 08/21/24 13:05: Urine Color Yellow, Urine Clarity Clear, Urine pH 6.0, Ur Specific [place] 1.020, Urine Protein 30 H, Urine Glucose (UA) Normal, Urine Ketones Negative, Urine Occult Blood 25 H, Urine Nitrite Negative, Urine Bilirubin Negative, Urine Urobilinogen Normal, Ur Leukocyte Esterase 25 H, Urine RBC 0 SEEN, Urine WBC 0-5 SEEN, Ur Squamous Epith Cells 0-5 SEEN, Urine Bacteria 0 SEEN, Urine Mucus 0 SEEN 08/21/24 17:20: POC Glucose 47 L 08/21/24 18:13: POC Glucose 56 L 08/21/24 19:01: Lactic Acid 5.9 H* 08/21/24 19:06: POC Glucose 70 L 08/21/24 20:36: POC Glucose 173 H 08/22/24 03:30: WBC 3.3 L, RBC 2.83 L, Hgb 7.8 L, Hct 24.8 L, MCV 87.6, MCH 27.6, MCHC 31.5 L, RDW Std Deviation 51.7 H, RDW Coeff of Janice 16.1 H, Plt Count 134 L, MPV 9.1, Immature Gran % (Auto) 1.200 H, Neut % (Auto) 79.6 H, Lymph % (Auto) 15.9 L, [place] % (Auto) 3.0, Eos % (Auto) 0.0, Baso % (Auto) 0.3, Absolute Neuts (auto) 2.6, Absolute Lymphs (auto) 0.52 L, Nucleated RBC % 0, Sodium 134 L , Potassium 3.7, Chloride 105, Carbon Dioxide 25.0, Anion Gap 4 L, BUN 7, C reatinine 0.44 L, Estim Creat Clear Calc 77.82, Est GFR (MDRD) Af Amer 246, Est GFR (MDRD) Non-Af 203, BUN/Creatinine Ratio 16.1, Glucose 117 H, Lactic Acid 1.8, Calcium 7.0 L, Total Bilirubin 0.30, AST 54 H, ALT 99 H, Alkaline Phosphatase 83, Total Protein 4.7 L, Albumin 1.1 L, Globulin 3.6, A lbumin/Globulin Ratio 0.3 L Micro: Microbiology 08/22/24 04:10 Stool Clostridioides difficile (PCR) - Final 08/21/24 17:25 Mucosa - Nose Respiratory Panel (PCR) - Final 08/21/24 09:10 Mucosa - Nose SARS-CoV-2, Influenza & RSV (PCR) - Final Rhythm Strip Rhythm Strip: Sinus Rhythm Rate: 95 Ectopy: None Imaging Radiology Impression Chest X-Ray 08/21/24 09:35 IMPRESSION: No acute cardiopulmonary process. Reading [facility] Chest/Abdomen/Pelvis CT 08/21/24 14:35 IMPRESSION: Ibarra colitis. Fusiform infrarenal abdominal aortic aneurysm. Mild pulmonary scarring with patchy infiltrates as described. One or more dose reduction techniques were used (e.g., Automated exposure control, adjustment of the mA and/or kV according to patient size, use of iterative reconstruction technique). Reading Location: [facility] Charges/Coding Visit Charges Inpatient E&M: 22671 Init Hosp L3
--- NOTE | 2024-08-22 07:11 | PN.HOSP_ITS ---
Reason for Visit Reason for Visit: Diagnoses Hypotension, unspecified (08/21/24) Subjective Subjective Patient is a 74-year-old gentleman resident at an extended care facility who was brought to the emergency department with hypotension productive cough as well as diarrhea. Patient tested positive for C. difficile. An assessment of sepsis was made admitted to the intensive care unit for further management Objective Data Objective Data Vital Signs: Vital Signs Temp Pulse Resp BP Pulse Ox O2 Del Method O2 Flow Rate 97.6 F L 70 26 H 91/60 100 Nasal Cannula 4 08/22/24 04:00 08/22/24 06:00 08/22/24 06:00 08/22/24 06:00 08/22/24 06:00 08/22/24 06:00 08/22/24 06:00 Oxygen Flow Rate (L/min) 4 Oxygen Delivery Method Nasal Cannula Weight: 66.9 kg Body Mass Index (BMI) 20.5 Intake & Output: Intake and Output for Last 24 Hours 08/20/24 08/21/24 08/22/24 23:59 23:59 23:59 Intake Total 2049 985 / 985 Balance 2049 985 / 985 Lab / Micro Data 08/22/24 03:30 08/22/24 03:30 Labs: Laboratory Results - last 24 hr 08/21/24 09:28: WBC 4.6, RBC 3.38 L, Hgb 9.4 L, Hct 30.1 L, MCV 89.1, MCH 27.8, MCHC 31.2 L, RDW Std Deviation 53.2 H, RDW Coeff of Janice 16.1 H, Plt Count 165, MPV 9.3, Immature Gran % (Auto) 0.900, Neut % (Auto) 81.3 H, Lymph % (Auto) 15.9 L, [place] % (Auto) 1.7, Eos % (Auto) 0.0, Baso % (Auto) 0.2, Absolute Neuts (auto) 3.7, Absolute Lymphs (auto) 0.73 L, Nucleated RBC % 0, Differential Comment SCANNED, PT 15.1 H, INR 1.2, APTT 30.4, Sodium 137, Potassium 3.8, Chloride 108 H, Carbon Dioxide 23.0, Anion Gap 6, BUN 11, Creatinine 0.47 L, Estim Creat Clear Calc 80.14, Est GFR (MDRD) Af Amer 227, Est GFR (MDRD) Non-Af 188, B UN/Creatinine Ratio 23.6 H, Glucose 70 L, Lactic Acid 3.0 H*, Calcium 7.6 L, Total Bilirubin 0.50, AST 83 H, ALT 130 H, Alkaline Phosphatase 78, Total Protein 5.3 L, Albumin 1.2 L, Globulin 4.1, Albumin/Globulin Ratio 0.3 L, P rocalcitonin 0.55 H 08/21/24 13:05: Urine Color Yellow, Urine Clarity Clear, Urine pH 6.0, Ur Specific [place] 1.020, Urine Protein 30 H, Urine Glucose (UA) Normal, Urine Ketones Negative, Urine Occult Blood 25 H, Urine Nitrite Negative, Urine Bilirubin Negative, Urine Urobilinogen Normal, Ur Leukocyte Esterase 25 H, Urine RBC 0 SEEN, Urine WBC 0-5 SEEN, Ur Squamous Epith Cells 0-5 SEEN, Urine Bacteria 0 SEEN, Urine Mucus 0 SEEN 08/21/24 17:20: POC Glucose 47 L 08/21/24 18:13: POC Glucose 56 L 08/21/24 19:01: Lactic Acid 5.9 H* 08/21/24 19:06: POC Glucose 70 L 08/21/24 20:36: POC Glucose 173 H 08/22/24 03:30: WBC 3.3 L, RBC 2.83 L, Hgb 7.8 L, Hct 24.8 L, MCV 87.6, MCH 27.6, MCHC 31.5 L, RDW Std Deviation 51.7 H, RDW Coeff of Janice 16.1 H, Plt Count 134 L, MPV 9.1, Immature Gran % (Auto) 1.200 H, Neut % (Auto) 79.6 H, Lymph % (Auto) 15.9 L, [place] % (Auto) 3.0, Eos % (Auto) 0.0, Baso % (Auto) 0.3, Absolute Neuts (auto) 2.6, Absolute Lymphs (auto) 0.52 L, Nucleated RBC % 0, Sodium 134 L , Potassium 3.7, Chloride 105, Carbon Dioxide 25.0, Anion Gap 4 L, BUN 7, C reatinine 0.44 L, Estim Creat Clear Calc 77.82, Est GFR (MDRD) Af Amer 246, Est GFR (MDRD) Non-Af 203, BUN/Creatinine Ratio 16.1, Glucose 117 H, Lactic Acid 1.8, Calcium 7.0 L, Total Bilirubin 0.30, AST 54 H, ALT 99 H, Alkaline Phosphatase 83, Total Protein 4.7 L, Albumin 1.1 L, Globulin 3.6, A lbumin/Globulin Ratio 0.3 L Micro: Microbiology 08/22/24 04:10 Stool C. difficile GDH Antigen & Toxins - Final Toxigenic C. difficile 08/22/24 04:10 Stool Clostridioides difficile (PCR) - Final 08/21/24 17:25 Mucosa - Nose Respiratory Panel (PCR) - Final 08/21/24 09:10 Mucosa - Nose SARS-CoV-2, Influenza & RSV (PCR) - Final Radiography Diagnostic Testing: Radiology Impression Chest X-Ray 08/21/24 09:35 IMPRESSION: No acute cardiopulmonary process. Reading Location: [facility] Chest/Abdomen/Pelvis CT 08/21/24 14:35 IMPRESSION: Ibarra colitis. Fusiform infrarenal abdominal aortic aneurysm. Mild pulmonary scarring with patchy infiltrates as described. One or more dose reduction techniques were used (e.g., Automated exposure control, adjustment of the mA and/or kV according to patient size, use of iterative reconstruction technique). Reading Location: [facility] Rhythm Strip Rhythm Strip: Sinus Rhythm Rate: 95 Ectopy: None Physical Exam Narrative GENERAL: Frail looking HEENT: Atraumatic; normocephalic EYES; Anicteric, Normal Conjunctiva NECK; supple, normal thyroid, RESPIRATORY: Diminished to auscultation CARDIOVASCULAR: Regular S1 S2, GI: soft, normoactive bowel sounds, : No Renal angle tenderness; EXTREMITIES: No edema, no clubbing, MUSCULOSKELETAL: no muscle wasting NEURO: Awake; no lateralizing signs. SKIN: No Rash PSYCH; Flat affect Assessment & Plan Assessment/Plan (1) Hypotension: PLAN: Plan Patient is a 74-year-old gentleman resident at an extended care facility who was brought to the emergency department with hypotension productive cough as well as diarrhea. Patient tested positive for C. difficile. An assessment of sepsis was made admitted to the intensive care unit for further management 1. Sepsis secondary to healthcare acquired pneumonia as well as C. difficile colitis Patient admitted to the intensive care unit resuscitated with IV fluids per protocol as well as antibiotics and cultures obtained. Response to therapy monitored with serial lactic acid levels CT chest/abdomen/pelvis with patchy infiltrates and pancolitis 2. Recurrent C. difficile colitis ? Patient is on p.o. vancomycin 3. Acute exacerbation of ulcerative colitis . Patient has received Remicade and continues to experience symptoms. Case was discussed with GI and patient has been refractory to our management and is outside the scope of management at our hospital and is recommended to be transferred for further management whether that be medical, or surgical evaluation for colectomy or diverting ileostomy 4. Anemia ? Secondary to acute blood loss anemia from patient ulcerative colitis superimposed on chronic disorder monitoring H&H and transfuse if patient becomes symptomatic or hemoglobin falls below 7 5. Hyponatremia ? Secondary to hypovolemic hyponatremia resolved with IV fluid resuscitation subsequent monitoring with daily BMPs ordered 6. Dyslipidemia ?Patient is on statin therapy, continued at home dose 7. Diabetes mellitus type II - on long acting insulin, Accu-Cheks a.c. and at bedtime and covered with sliding scale insulin 8. GERD ? On PPI 9. Hypotension ? Patient has some chronicity to his hypotension do suspect adrenal insufficiency from prolonged illness ordered random cortisol level patient started on midodrine 10. Severe malnutrition -Related to: acute illness related to altered GI function and inadequate oral intake As evidenced by: 5% unintentional weight loss in less than 1 month and PO meeting less than 50% estimated nutrition 11. Hypocalcemia ? Secondary to hypoalbuminemia monitoring 12. DVT prophylaxis ? Subcu heparin Time spent in the patient's overall evaluation,decision-making process, review of diagnostic data, adjustment of management, discussion with other providers, nursing nursing and ancillary staff involved in patient's care documentation, 52 Minutes Charges/Coding Visit Charges Inpatient E&M: 15739 [facility] [[email or web address]] Hosp L3
[2024-08-22] MEDS: Pregabalin 75 MG Capsule 150 MG PO ×2 (09:03→21:58)
[2024-08-22] MEDS: Colestipol 1 GM TABLET PO ×2 (09:03→21:46)
[2024-08-22] MEDS: Pantoprazole Sodium 40 MG Tablet PO (09:03)
[2024-08-22] MEDS: MESALAMINE 400 MG CAPSULE.DR PO ×2 (09:04→21:46)
[2024-08-22 09:31] LABS: Differential Comment SCANNED; Platelet Estimate SLT DEC (ADEQ); Red Cell Morphology NORM C+C NORMAL (NORM C&C)
[2024-08-22] MEDS: Midodrine HCl 5 MG Tablet 10 MG PO ×3 (09:43→15:35)
[2024-08-22] MEDS: Dicyclomine 10 MG Capsule PO ×2 (09:43→15:21)
[2024-08-22 09:44] LABS: Bedside Glucose 102 mg/dL (74-106)
[2024-08-22] MEDS: Vancomycin HCl 1,250 MG in 0.9% Normal Saline (250mL Bag) 250 ML 167 MG IV ×2 (09:44→21:19)
--- NOTE | 2024-08-22 10:12 | CASEMGMT ---
Insurance review for hospitals In-network with [facility] insurance if transfer is recommended is as follows: [facility], [facility], [facility], [place], [facility], [place], [facility], [facility], [place], and . Kaity Ramirez, Discharge Planning Asst.
[2024-08-22] MEDS: 0.9% Saline Lock 10 ML Syringe IV ×2 (11:37→17:01)
--- NOTE | 2024-08-22 11:48 | NURSING ---
report called to ms3 Andie Cruz
[2024-08-22 12:24] LABS: Bedside Glucose 116 mg/dL (74-106)
--- NOTE | 2024-08-22 12:51 | CHAPLAIN ---
Type of Pastoral Visit _x__ Initial Visit ___ Follow-up Visit ___ On-call Visit ___ General Patient Visit ___ Spiritual Assessment ___ Family Conference ___ Bereavement ___ Rapid Response ___ Code Blue ___ Other (describe below) Pastoral Care Referral From _x__ Patient ___ Family ___ Nurse ___ Physician ___ Parliamentary Librarian ___ Data Collector ___ Other (describe below) Sacrament/Intervention _x__ Active listening ___ Anointing ___ Sikh ___ Bereavement ___ Communion ___ [place] exploration ___ ___ Life review _x__ Prayer ___ Reconciliation ___ Sacrament of Sick _x__ Supportive presence ___ Wedding ___ Other (describe below) Pastoral Comments patient is a repeat admission; pt is to be transferred out to another facility; pt admits that he is weary of being sick and in the hospital but states I'm taking it as it comes; pt welcomes presence and prayer for support
[2024-08-22] MEDS: Menthol/Lanolin/Calamine/Znox 113 GM Tube 1 APPLIC TOPICAL ×2 (15:21→21:22)
[2024-08-22] MEDS: Baclofen 10 MG Tablet 5 MG PO ×2 (15:21→21:22)
[2024-08-22 16:00] LABS: Bedside Glucose 139 mg/dL (74-106)
[2024-08-22] MEDS: Glucerna Shake 120 ML LIQUID PO (17:01)
[2024-08-22] MEDS: MELATONIN 3 MG TABLET PO (21:46)
[2024-08-22] MEDS: Atorvastatin Calcium 10 MG Tablet PO (21:46)
[2024-08-22] MEDS: guaiFENesin 10 ML UDC (200MG/10ML) PO (22:24)
[2024-08-22] MEDS: Insulin Lispro 100 UNIT/ML INSULN.PEN SC (22:24)
[2024-08-22 22:35] LABS: Bedside Glucose 214 mg/dL (74-106)
[2024-08-23] VITALS (13 sets, daily range): BP systolic 82–92; BP diastolic 45–58; PULSE 53–75; RESP 16–20; TEMP 36.6–37; O2SAT 92–96; BMI 20.6
[2024-08-23] MEDS: Hydrocortisone Sod Succinate 100 MG/2 ML Vial 50 MG IV ×4 (00:19→17:13)
[2024-08-23] MEDS: Piperacil/Tazobactam 3.375 GM in 0.9% Normal Saline (50mL MB+) 50 ML IV ×4 (00:22→22:43)
[2024-08-23] MEDS: 0.9% Saline Lock 10 ML Syringe IV ×3 (00:23→12:38)
[2024-08-23] MEDS: Vancomycin 125 MG/5 ML Susp PO.SYRINGE PO ×4 (00:24→17:12)
[2024-08-23] MEDS: Dicyclomine 10 MG Capsule PO ×3 (06:27→17:12)
[2024-08-23] MEDS: Menthol/Lanolin/Calamine/Znox 113 GM Tube 1 APPLIC TOPICAL ×3 (06:28→21:41)
[2024-08-23] MEDS: Glucerna Shake 120 ML LIQUID PO ×2 (06:34→12:38)
[2024-08-23] MEDS: Midodrine HCl 5 MG Tablet 10 MG PO ×3 (06:34→17:12)
[2024-08-23] MEDS: Folic Acid 1 MG Tablet PO (06:34)
[2024-08-23 07:00] LABS: Bedside Glucose 120 mg/dL (74-106)
--- NOTE | 2024-08-23 07:40 | PCM.PN.HOSP ---
Reason for Visit Reason for Visit: Diagnoses Hypotension, unspecified (08/21/24) Ulcerative colitis, unspecified, without complications (08/21/24) Subjective Subjective Patient was transferred from intensive care unit to the 2 [place] unit the day prior. Patient blood pressure still remains relatively low started on midodrine. Did order random cortisol level which came back not consistent with adrenal insufficiency. Patient still reports loose bowel movement Objective Data Objective Data Vital Signs: Vital Signs Temp Pulse Resp BP Pulse Ox O2 Del Method O2 Flow Rate 98 F 75 20 H 88/49 L 94 Nasal Cannula 4 08/23/24 07:39 08/23/24 07:39 08/23/24 07:39 08/23/24 07:39 08/23/24 07:39 08/23/24 07:39 08/23/24 07:39 Oxygen Flow Rate (L/min) 4 Oxygen Delivery Method Nasal Cannula Weight: 66.9 kg Body Mass Index (BMI) 20.6 Intake & Output: Intake and Output for Last 24 Hours 08/21/24 08/22/24 08/23/24 23:59 23:59 23:59 Intake Total 2049 2635 / 2635 50 / 50 Balance 2049 2635 / 2635 50 / 50 Lab / Micro Data 08/23/24 08:32 08/22/24 03:30 Labs: Laboratory Results - last 24 hr 08/22/24 03:30: Differential Comment SCANNED, Platelet Estimate SLT DEC, RBC Morphology NORM C+C 08/22/24 08:59: POC Glucose 102 08/22/24 10:25: Cortisol 73.90 H, Blood Type A POSITIVE, Antibody Screen NEGATIVE 08/22/24 11:33: POC Glucose 116 H 08/22/24 15:38: POC Glucose 139 H 08/22/24 22:03: POC Glucose 214 H 08/23/24 06:33: POC Glucose 120 H Micro: Microbiology 08/21/24 13:00 Urine, Random Legionella Antigen - Final 08/21/24 13:00 Urine, Random Streptococcus pneumoniae Antigen (M - Final 08/21/24 13:05 Urine, Random Urine Culture - Final Mixed Gram Pos & Gram Neg Org 08/22/24 04:10 Stool Enteric Bacteriology - Final 08/22/24 04:10 Stool C. difficile GDH Antigen & Toxins - Final Toxigenic C. difficile 08/22/24 04:10 Stool Clostridioides difficile (PCR) - Final 08/21/24 17:25 Mucosa - Nose Respiratory Panel (PCR) - Final 08/21/24 09:10 Mucosa - Nose SARS-CoV-2, Influenza & RSV (PCR) - Final Rhythm Strip Rhythm Strip: Sinus Rhythm Rate: 95 Ectopy: None Physical Exam Narrative GENERAL: Frail looking HEENT: Atraumatic; normocephalic EYES; Anicteric, Normal Conjunctiva NECK; supple, normal thyroid, RESPIRATORY: Diminished to auscultation CARDIOVASCULAR: Regular S1 S2, GI: soft, normoactive bowel sounds, : No Renal angle tenderness; EXTREMITIES: No edema, no clubbing, MUSCULOSKELETAL: no muscle wasting NEURO: Awake; no lateralizing signs. SKIN: No Rash PSYCH; Flat affect Assessment & Plan Assessment/Plan (1) Hypotension: PLAN: Plan Patient is a 74-year-old gentleman resident at an [facility] care facility who was brought to the emergency department with hypotension productive cough as well as diarrhea. Patient tested positive for C. difficile. An assessment of sepsis was made admitted to the intensive care unit for further management 1. Sepsis secondary to healthcare acquired pneumonia as well as C. difficile colitis Patient admitted to the intensive care unit resuscitated with IV fluids per protocol as well as antibiotics and cultures obtained. Response to therapy monitored with serial lactic acid levels CT chest/abdomen/pelvis with patchy infiltrates and pancolitis ?08/23/2024; patient was transferred to the MedSurg unit following stabilization of blood pressure and goal remains relatively on the low side 2. Recurrent C. difficile colitis ? Patient is on p.o. vancomycin 3. Acute exacerbation of ulcerative colitis . Patient has received Remicade and continues to experience symptoms. Case was discussed with GI and patient has been refractory to our management and is outside the scope of management at our hospital and is recommended to be transferred for further management whether that be medical, or surgical evaluation for colectomy or diverting ileostomy ? 08/23/2024; patient still awaiting transfer to [facility] Pending bed availability 4. Anemia ? Secondary to acute blood loss anemia from patient ulcerative colitis superimposed on chronic disorder monitoring H&H and transfuse if patient becomes symptomatic or hemoglobin falls below 7 ? 08/23/2024; hemoglobin down to 7.7 repeat H&H ordered for a.m. 5. Hyponatremia ? Secondary to hypovolemic hyponatremia resolved with IV fluid resuscitation subsequent monitoring with daily BMPs ordered 6. Dyslipidemia ?Patient is on statin therapy, continued at home dose 7. Diabetes mellitus type II - on long acting insulin, Accu-Cheks a.c. and at bedtime and covered with sliding scale insulin 8. GERD ? On PPI 9. Hypotension ? Patient has some chronicity to his hypotension do suspect adrenal insufficiency from prolonged illness ordered random cortisol level patient started on midodrine ? 08/23/2024; patient blood pressure still remains on the low side. Random cortisol came back markedly elevated appropriate response to his chronic medical conditions ruling out adrenal insufficiency 10. Severe malnutrition -Related to: acute illness related to altered GI function and inadequate oral intake As evidenced by: 5% unintentional weight loss in less than 1 month and PO meeting less than 50% estimated nutrition 11. Hypocalcemia ? Secondary to hypoalbuminemia monitoring 12. DVT prophylaxis ? Subcu heparin Time spent in the patient's overall evaluation,decision-making process, review of diagnostic data, adjustment of management, discussion with other providers, nursing nursing and ancillary staff involved in patient's care documentation, 50 Minutes Charges/Coding Visit Charges Inpatient E&M: 42349 Subs Hosp L3
[2024-08-23 09:19] LABS: Absolute Lymphocyte Count 0.67 X10^3/uL (0.83-4.51); Hematocrit 24.3 % (40-54); Hemoglobin 7.7 g/dL (13.0-16.5); Lymphocyte # 0.67 X10^3/ul (0.83-4.51); Lymphocyte % 11.4 % (19-41); Mean Corp Hgb Conc 31.7 g/dL (32-36); Mean Corpuscular Hgb 27.1 pg (27.0-32.0); Mean Corpuscular Volume 85.6 fL (80-94); Mean Platelet Vol. 9.6 fl (6.2-12.0); Monocyte# 0.12 X10^3/uL; NRBC Flagged by Analyzer 0 % (0-5); Neutrophil # 5.04 X10^3/uL (2.7-7.7); Neutrophil % 85.6 % (47-70); POSITIVE MORPHOLOGY YES; Platelet Count 162 K/mm3 (150-450); RBC Distribution Width CV 15.7 % (11.6-14.6); RBC Distribution Width SD 49.5 fl (35.1-43.9); Red Blood Count 2.84 M/mm3 (4.6-6.2); White Blood Count 5.9 K/mm3 (4.4-11.0)
[2024-08-23 09:20] LABS: Differential Indicated SCAN CRITERIA MET
[2024-08-23] MEDS: MESALAMINE 400 MG CAPSULE.DR PO ×2 (09:38→22:44)
[2024-08-23] MEDS: Colestipol 1 GM TABLET PO ×2 (09:38→22:44)
[2024-08-23] MEDS: Pantoprazole Sodium 40 MG Tablet PO (09:38)
[2024-08-23] MEDS: Pregabalin 75 MG Capsule 150 MG PO (09:38)
[2024-08-23 09:40] LABS: Vancomycin, Trough Level 22.8 ug/mL (5.0-15.0)
[2024-08-23 09:41] LABS: Anion Gap 5 (5-15); BUN 11 mg/dL (7-18); BUN/Creat Ratio 18.5 RATIO (10-20); Calcium,Total 7.6 mg/dL (8.5-10.1); Chloride 109 mmol/L (98-107); Creatinine, Serum 0.59 mg/dL (0.70-1.30); EST Glomerular Filtration Rate 142 mL/min (>60); Est Glom Filt Rate - Afr Amer 172 mL/min (>60); Estimated Creatinine Clearance 77.82 ml/min; Glucose 137 mg/dL (74-106); Magnesium 2.2 mg/dL (1.6-2.6); Phosphorus 3.3 mg/dL (2.5-4.9); Potassium 3.3 mmol/L (3.5-5.1); Sodium Level 136 mmol/L (136-145)
--- NOTE | 2024-08-23 10:04 | PCM.RX.CS ---
Consult Antibiotic Management Pharmacy has been consulted to manage selected antibiotic: Vancomycin Type of Intervention Type of Consult: Follow-up Labs Labs: Sodium 136 mmol/L (136-145) 08/23/24 08:32 Potassium 3.3 mmol/L (3.5-5.1) L 08/23/24 08:32 Chloride 109 mmol/L (98-107) H 08/23/24 08:32 Carbon Dioxide 23.0 mmol/L (21.0-32.0) 08/23/24 08:32 Anion Gap 5 (5-15) 08/23/24 08:32 BUN 11 mg/dL (7-18) 08/23/24 08:32 Creatinine 0.59 mg/dL (0.70-1.30) L 08/23/24 08:32 Est GFR (MDRD) Af Amer 172 mL/min (>60) 08/23/24 08:32 Est GFR (MDRD) Non-Af 142 mL/min (>60) 08/23/24 08:32 BUN/Creatinine Ratio 18.5 RATIO (10-20) 08/23/24 08:32 Glucose 137 mg/dL (74-106) H 08/23/24 08:32 Vancomycin Trough 22.8 ug/mL (5.0-15.0) H 08/23/24 08:32 Microbiology Microbiology: Microbiology 08/21/24 13:00 Urine, Random Legionella Antigen - Final 08/21/24 13:00 Urine, Random Streptococcus pneumoniae Antigen (M - Final 08/21/24 13:05 Urine, Random Urine Culture - Final Mixed Gram Pos & Gram Neg Org 08/22/24 04:10 Stool Enteric Bacteriology - Final 08/22/24 04:10 Stool C. difficile GDH Antigen & Toxins - Final Toxigenic C. difficile 08/22/24 04:10 Stool Clostridioides difficile (PCR) - Final 08/21/24 17:25 Mucosa - Nose Respiratory Panel (PCR) - Final 08/21/24 09:10 Mucosa - Nose SARS-CoV-2, Influenza & RSV (PCR) - Final Goal Trough Goal Trough: 15-20 mcg/mL Pharmacy Plan for Drug Dosing Pharmacy Plan for Drug Dosing: VANCOMYCIN LEVEL RECEIVED Current Vancomycin Dose: 1250mg q12h (09, 21) Number of Doses Received: x1 1750mg dose, x2 1250mg doses Vancomycin Level: 22.8 (drawn 08/23 at 0832) Hours Since Last Dose: 11 hours since last dose on 08/22 at 2119 Renal Function: SrCr 0.59 (0.8 adjusted for age) Renal Function Trend: SrCr stable Lab/Micro: Vancomycin Plan/Comments: resulted trough of 22.8 is above the ordered goal trough range of 15-20. recommend holding vancomycin for 24 hours to allow medication to clear. restart at a dose of 1000mg q12h and check a trough prior to the 4th dose Pending Level: 08/26/24 at 2030 Pharmacy Service will continue to monitor and adjust dosing as required. Follow-Up Labs Follow-Up Labs: Trough: Vancomycin (08/26/24 at 2030)
--- NOTE | 2024-08-23 10:07 | PCM.RX.CS ---
Consult Labs Labs: Sodium 136 mmol/L (136-145) 08/23/24 08:32 Potassium 3.3 mmol/L (3.5-5.1) L 08/23/24 08:32 Chloride 109 mmol/L (98-107) H 08/23/24 08:32 Carbon Dioxide 23.0 mmol/L (21.0-32.0) 08/23/24 08:32 Anion Gap 5 (5-15) 08/23/24 08:32 BUN 11 mg/dL (7-18) 08/23/24 08:32 Creatinine 0.59 mg/dL (0.70-1.30) L 08/23/24 08:32 Est GFR (MDRD) Af Amer 172 mL/min (>60) 08/23/24 08:32 Est GFR (MDRD) Non-Af 142 mL/min (>60) 08/23/24 08:32 BUN/Creatinine Ratio 18.5 RATIO (10-20) 08/23/24 08:32 Glucose 137 mg/dL (74-106) H 08/23/24 08:32 Vancomycin Trough 22.8 ug/mL (5.0-15.0) H 08/23/24 08:32 Microbiology Microbiology: Microbiology 08/21/24 13:00 Urine, Random Legionella Antigen - Final 08/21/24 13:00 Urine, Random Streptococcus pneumoniae Antigen (M - Final 08/21/24 13:05 Urine, Random Urine Culture - Final Mixed Gram Pos & Gram Neg Org 08/22/24 04:10 Stool Enteric Bacteriology - Final 08/22/24 04:10 Stool C. difficile GDH Antigen & Toxins - Final Toxigenic C. difficile 08/22/24 04:10 Stool Clostridioides difficile (PCR) - Final 08/21/24 17:25 Mucosa - Nose Respiratory Panel (PCR) - Final 08/21/24 09:10 Mucosa - Nose SARS-CoV-2, Influenza & RSV (PCR) - Final Pharmacy Plan for Drug Dosing Pharmacy Plan for Drug Dosing: Note: trough will be on 08/25/24 at 2030, not 08/26/24 at 2030 Pharmacy Service will continue to monitor and adjust dosing as required.
[2024-08-23 11:14] LABS: Differential Comment SCANNED; Platelet Estimate ADEQUATE (ADEQ); Red Cell Morphology NORM C+C NORMAL (NORM C&C)
[2024-08-23 11:42] LABS: Bedside Glucose 235 mg/dL (74-106)
[2024-08-23] MEDS: Insulin Lispro 100 UNIT/ML INSULN.PEN SC ×2 (12:39→17:12)
--- NOTE | 2024-08-23 13:23 | PCM.PN.TICU ---
Objective Data Objective Data Vital Signs: Vital Signs Last response Temperature 36.6 C 08/23/24 12:37 Temperature Source Oral 08/23/24 12:37 Pulse Rate 70 08/23/24 12:37 Respiratory Rate 18 08/23/24 12:37 Respiratory Effort Non-Labored 08/23/24 06:50 Respiratory Depth Normal 08/22/24 12:30 Respiratory Pattern Tachypnea 08/23/24 06:50 Blood Pressure 92/58 L 08/23/24 12:37 Blood Pressure Mean 69 08/23/24 12:37 Blood Pressure Source Monitor 08/23/24 12:37 Blood Pressure Position Semi-Fowlers 08/23/24 12:37 Blood Pressure Location Right Arm 08/23/24 12:37 Pulse Ox 94 08/23/24 12:37 Oxygen Delivery Method Nasal Cannula 08/23/24 12:37 Oxygen Flow Rate (L/min) 3 08/23/24 12:37 I&O: I&O Last 24 Hours 08/22/24 08/23/24 08/23/24 23:59 11:59 23:59 Intake Total 325 / 2635 400 / 400 Balance 325 / 2635 400 / 400 I&O: Total Stay 08/21/24 08:34 thru 08/23/24 11:37 Intake Total 5085 Balance 5085 Current Meds Ordered / Administered: Current meds ordered / Administered Generic Name Dose Route Start Last Admin Trade Name Freq PRN Reason Stop Dose Admin Acetaminophen 650 mg 08/21/24 16:45 Acetaminophen 325 Mg Tablet PO Q6H PRN PRN Pain 1-10 Or Fever >100.7 Albuterol Sulfate 2.5 mg 08/21/24 16:45 Albuterol 2.5 Mg/3 Ml Vial.Neb. INHALATION Q2H PRN PRN SOB &/OR WHEEZING Albuterol Sulfate 2.5 mg 08/22/24 09:00 Albuterol 2.5 Mg/3 Ml Vial.Neb. INHALATION Q6H PRN shortness of breath or wheezing Atorvastatin Calcium 10 mg 08/21/24 22:00 08/22/24 21:46 Atorvastatin Calcium 10 Mg Tablet PO 10 mg QHS KORINA Administration Baclofen 5 mg 08/22/24 14:00 08/23/24 06:27 Baclofen 10 Mg Tablet PO Not Given TID KORINA Calamine/Phenol 1 applic 08/22/24 14:00 08/23/24 06:28 Menthol/Lanolin/Calamine/Znox 113 Gm Tube TOPICAL 1 applic TID KORINA Administration Protocol Colestipol HCl 1 gm 08/21/24 22:00 08/23/24 09:38 Colestipol 1 Gm Tablet PO 1 gm BID KORINA Administration Dicyclomine HCl 10 mg 08/22/24 11:00 08/23/24 12:38 Dicyclomine 10 Mg Capsule PO 10 mg TIDAC KORINA Administration Folic Acid 1 mg 08/23/24 08:00 08/23/24 06:34 Folic Acid 1 Mg Tablet PO 1 mg BREAKFAST KORINA Administration Glucagon 1 mg 08/21/24 16:45 Glucagon 1 Mg/Ml Syringe IM X1 PRN HYPOGLYCEMIA Protocol Guaifenesin 10 ml 08/22/24 18:06 08/22/24 22:24 Guaifenesin 10 Ml Udc (200mg/10ml) PO 10 ml Q4H PRN PRN Administration COUGH Hydrocortisone Sodium Succinate 50 mg 08/21/24 16:45 08/23/24 12:39 Hydrocortisone Sod Succinate 100 Mg/2 Ml Vial IV 50 mg Q6 KORINA Administration Dextrose 250 mls @ 0 mls/hr 08/21/24 16:45 Dextrose 10%-Water IV .Q0M PRN HYPOGLYCEMIA Protocol As Directed Piperacillin Sod/Tazobactam 50 mls @ 12.5 mls/hr 08/21/24 22:00 08/23/24 10:26 Sod 3.375 gm/ Sodium Chloride IV Infused Q8 KORINA Infusion Sodium Chloride 100 mls @ 15 mls/hr 08/21/24 16:57 IV .Q6H40M PRN Saline Flush Sodium Chloride 100 mls @ 15 mls/hr 08/21/24 16:57 IV .Q6H40M PRN Additional IVPB Infusion Vancomycin IV-PHARMACY TO DOSE 500 mls @ 250 mls/hr 08/21/24 20:21 1 each/ Sodium Chloride IV X1 PRN Rx to Dose Protocol Vancomycin HCl 1,000 mg in 200 mls @ 200 mls/hr 08/24/24 09:00 Vancomycin IV Q12H KORINA Insulin Human Lispro 0 unit 08/21/24 16:45 08/23/24 12:39 Insulin Lispro 100 Unit/Ml Insuln.Pen SC 3 units ACHS KORINA Administration Protocol Melatonin 3 mg 08/21/24 16:45 08/22/24 21:46 Melatonin 3 Mg Tablet PO 3 mg QHS PRN PRN Administration INSOMNIA Mesalamine 400 mg 08/21/24 22:00 08/23/24 09:38 Mesalamine 400 Mg Capsule.Dr PO 400 mg BID KORINA Administration Midodrine 10 mg 08/22/24 12:00 08/23/24 12:38 Midodrine Hcl 5 Mg Tablet PO 10 mg TIDCM KORINA Administration Nutritional Formula (Lactose Free) 120 ml 08/22/24 17:00 08/23/24 12:38 Glucerna Shake 120 Ml Liquid PO 120 ml TIDCM KORINA Administration Ondansetron HCl 4 mg 08/21/24 16:45 Ondansetron 4 Mg/2 Ml Vial IV Q8H PRN PRN NAUSEA/VOMITING Pantoprazole Sodium 40 mg 08/22/24 10:00 08/23/24 09:38 Pantoprazole Sodium 40 Mg Tablet PO 40 mg DAILY KORINA Administration Pregabalin 150 mg 08/21/24 22:00 08/23/24 09:38 Pregabalin 75 Mg Capsule PO 150 mg BID KORINA Administration Sodium Chloride 10 - 40 ml 08/21/24 16:57 08/23/24 12:38 0.9% Saline Lock 10 Ml Syringe IV 10 ml UD PRN Administration Open End PICC Flush Sodium Chloride 10 - 40 ml 08/21/24 16:57 0.9 % Nacl (Sterile) Posiflush 10 Ml IV UD PRN Port access or dressing change Vancomycin HCl 125 mg 08/21/24 18:00 08/23/24 12:39 Vancomycin 125 Mg/5 Ml Susp Po.Syringe PO 125 mg Q6 KORINA Administration Vancomycin Protocol 1 lab 08/25/24 19:30 Vancomycin Trough/Random Due MC 08/25/24 21:30 DAILY [facility] Lab / Micro Data Attestation: I reviewed the patient's lab results. 08/23/24 08:32 08/23/24 08:32 Labs: Laboratory Results - last 24 hr 08/22/24 15:38: POC Glucose 139 H 08/22/24 22:03: POC Glucose 214 H 08/23/24 06:33: POC Glucose 120 H 08/23/24 08:32: WBC 5.9, RBC 2.84 L, Hgb 7.7 L, Hct 24.3 L, MCV 85.6, MCH 27.1, MCHC 31.7 L, RDW Std Deviation 49.5 H, RDW Coeff of Janice 15.7 H, Plt Count 162, MPV 9.6, Immature Gran % (Auto) 1.000 H, Neut % (Auto) 85.6 H, Lymph % (Auto) 11.4 L, [place] % (Auto) 2.0, Eos % (Auto) 0.0, Baso % (Auto) 0.0, Absolute Neuts (auto) 5.0, Absolute Lymphs (auto) 0.67 L, Nucleated RBC % 0, Differential Comment SCANNED, Platelet Estimate ADEQUATE, RBC Morphology NORM C+C, Sodium 136, Potassium 3.3 L, Chloride 109 H, Carbon Dioxide 23.0, Anion Gap 5, BUN 11, Creatinine 0.59 L, Estim Creat Clear Calc 77.82, Est GFR (MDRD) Af Amer 172, Est GFR (MDRD) Non-Af 142, BUN/Creatinine Ratio 18.5, Glucose 137 H, Calcium 7.6 L, Phosphorus 3.3, Magnesium 2.2, Vancomycin Trough 22.8 H 08/23/24 11:25: POC Glucose 235 H Micro: Microbiology 08/21/24 12:40 Blood Culture (Wb) - Anticubital Left Blood Culture - Preliminary No growth in 48 hours. 08/21/24 09:28 Blood Culture (Wb) - Anticubital Right Blood Culture - Preliminary No growth in 48 hours. 08/21/24 13:00 Urine, Random Legionella Antigen - Final 08/21/24 13:00 Urine, Random Streptococcus pneumoniae Antigen (M - Final 08/21/24 13:05 Urine, Random Urine Culture - Final Mixed Gram Pos & Gram Neg Org Rhythm Strip Rhythm Strip: Sinus Rhythm Rate: 95 Ectopy: None Assessment and Plan . Assessment and plan: IMPRESSIONS: 1. Sepsis The patient presented to the hospital with sepsis due to suspected pneumonia as well as + C. difficile colitis with acute sepsis related organ dysfunction as evidenced by hypotension and lactic acidemia. 2. Ulcerative colitis flare with anemia CT imaging of the abdomen demonstrated evidence of pancolitis. The patient has received Remicade and high-dose steroids in the past with continued colitis and symptoms. Therefore, gastroenterology is currently recommending transfer to tertiary care facility for surgical evaluation for colectomy or diverting ileostomy. Although the patient has been accepted at [facility], we are still awaiting bed availability. Plan to send type and screen today. Continue to monitor H&H and transfuse if hemoglobin drops below 7 g/dL. 3. History of GERD/neuropathy/hyperlipidemia/diabetes mellitus Complicates care, management, recovery and prognosis. Continue sliding scale insulin coverage for now. RECOMMENDATIONS: 1. Continue empiric antimicrobials. 2. Stress dose steroids as ordered. 3. Continue PPI therapy. 4. Continue scheduled midodrine. 5. Send type and screen. 6. Continue to monitor H&H and transfuse if hemoglobin drops below 7 g/dL. 7. Awaiting transfer to [facility], pending bed availability. Critical Care Time: 50 minutes The entirety of this encounter was done via Telemedicine Physical Exam Const no apparent distress General Appearance: disheveled, lethargic, ill appearing and appears older than stated age HEENT normocephalic and head/scalp atraumatic Eyes PERRL and EOMs intact bilaterally Neck full ROM Resp Auscultation: crackles Subjective Subjective Significant psychomotor retardation is noted but he responds appropriately when given enough time.
[2024-08-23 17:51] LABS: Bedside Glucose 177 mg/dL (74-106)
[2024-08-23] MEDS: 0.9% Normal Saline (250mL Bag) 250 ML 999 ML IV (20:32)
[2024-08-23 21:59] LABS: Bedside Glucose 108 mg/dL (74-106)
--- NOTE | 2024-08-23 22:10 | PCM.HOSP.N ---
Hospitalist Note BP ongoing near MAP 65, has been low consistently SBP in the 80s, administered 250 cc bolus as transiently did drop to 84/46, continue to closely monitor. No LH/Dizziness. Repeat BP following stable similar to prior. Still awaiting transfer tertiary facility bed.
[2024-08-23] MEDS: Atorvastatin Calcium 10 MG Tablet PO (22:44)
[2024-08-24] VITALS (11 sets, daily range): BP systolic 85–95; BP diastolic 49–58; PULSE 54–93; RESP 16–20; TEMP 36.5–37; O2SAT 85–96; BMI 20.6
[2024-08-24] MEDS: Hydrocortisone Sod Succinate 100 MG/2 ML Vial 50 MG IV ×3 (00:45→12:48)
[2024-08-24] MEDS: 0.9 % NaCl (Sterile) Posiflush 10 mL IV (00:46)
[2024-08-24] MEDS: Vancomycin 125 MG/5 ML Susp PO.SYRINGE PO ×3 (00:47→12:54)
[2024-08-24] MEDS: Piperacil/Tazobactam 3.375 GM in 0.9% Normal Saline (50mL MB+) 50 ML IV ×2 (06:14→13:04)
[2024-08-24] MEDS: Midodrine HCl 5 MG Tablet 10 MG PO ×2 (06:15→12:32)
[2024-08-24] MEDS: Dicyclomine 10 MG Capsule PO ×2 (06:16→12:47)
[2024-08-24] MEDS: 0.9% Saline Lock 10 ML Syringe IV (06:16)
[2024-08-24] MEDS: Menthol/Lanolin/Calamine/Znox 113 GM Tube 1 APPLIC TOPICAL ×2 (06:19→12:54)
[2024-08-24 07:10] LABS: Bedside Glucose 95 mg/dL (74-106)
--- NOTE | 2024-08-24 07:35 | PN.HOSP_ITS ---
Reason for Visit Reason for Visit: Diagnoses Hypotension, unspecified (08/21/24) Ulcerative colitis, unspecified, without complications (08/21/24) Subjective Subjective Patient seen continues to experience loose bowel movement. Patient frequency is decreasing. Diagnostic data reviewed single for potassium of 3.0, hemoglobin of 7.4. Did update [facility] Regarding patient condition Objective Data Objective Data Vital Signs: Vital Signs Temp Pulse Resp BP Pulse Ox O2 Del Method O2 Flow Rate 98 F 60 20 H 85/51 L 93 Nasal Cannula 4 08/24/24 06:50 08/24/24 06:50 08/24/24 06:50 08/24/24 06:50 08/24/24 06:50 08/24/24 06:50 08/24/24 06:50 Oxygen Flow Rate (L/min) 4 Oxygen Delivery Method Nasal Cannula Weight: 66.8 kg Body Mass Index (BMI) 20.6 Intake & Output: Intake and Output for Last 24 Hours 08/22/24 08/23/24 08/24/24 23:59 23:59 23:59 Intake Total 2635 / 2635 1300 / 1300 250 / 250 Balance 2635 / 2635 1300 / 1300 250 / 250 Lab / Micro Data 08/24/24 06:38 08/24/24 06:38 Labs: Laboratory Results - last 24 hr 08/23/24 08:32: WBC 5.9, RBC 2.84 L, Hgb 7.7 L, Hct 24.3 L, MCV 85.6, MCH 27.1, MCHC 31.7 L, RDW Std Deviation 49.5 H, RDW Coeff of Janice 15.7 H, Plt Count 162, MPV 9.6, Immature Gran % (Auto) 1.000 H, Neut % (Auto) 85.6 H, Lymph % (Auto) 11.4 L, [place] % (Auto) 2.0, Eos % (Auto) 0.0, Baso % (Auto) 0.0, Absolute Neuts (auto) 5.0, Absolute Lymphs (auto) 0.67 L, Nucleated RBC % 0, Differential Comment SCANNED, Platelet Estimate ADEQUATE, RBC Morphology NORM C+C, Sodium 136, Potassium 3.3 L, Chloride 109 H, Carbon Dioxide 23.0, Anion Gap 5, BUN 11, Creatinine 0.59 L, Estim Creat Clear Calc 77.82, Est GFR (MDRD) Af Amer 172, Est GFR (MDRD) Non-Af 142, BUN/Creatinine Ratio 18.5, Glucose 137 H, Calcium 7.6 L, Phosphorus 3.3, Magnesium 2.2, Vancomycin Trough 22.8 H 08/23/24 11:25: POC Glucose 235 H 08/23/24 17:11: POC Glucose 177 H 08/23/24 21:39: POC Glucose 108 H 08/24/24 06:49: POC Glucose 95 Micro: Microbiology 08/21/24 12:40 Blood Culture (Wb) - Anticubital Left Blood Culture - Preliminary No growth in 48 hours. 08/21/24 09:28 Blood Culture (Wb) - Anticubital Right Blood Culture - Preliminary No growth in 48 hours. 08/21/24 13:00 Urine, Random Legionella Antigen - Final 08/21/24 13:00 Urine, Random Streptococcus pneumoniae Antigen (M - Final 08/21/24 13:05 Urine, Random Urine Culture - Final Mixed Gram Pos & Gram Neg Org 08/22/24 04:10 Stool Enteric Bacteriology - Final 08/22/24 04:10 Stool C. difficile GDH Antigen & Toxins - Final Toxigenic C. difficile 08/22/24 04:10 Stool Clostridioides difficile (PCR) - Final 08/21/24 17:25 Mucosa - Nose Respiratory Panel (PCR) - Final 08/21/24 09:10 Mucosa - Nose SARS-CoV-2, Influenza & RSV (PCR) - Final Rhythm Strip Rhythm Strip: Sinus Rhythm Rate: 95 Ectopy: None Physical Exam Narrative GENERAL: Frail looking HEENT: Atraumatic; normocephalic EYES; Anicteric, Normal Conjunctiva NECK; supple, normal thyroid, RESPIRATORY: Diminished to auscultation CARDIOVASCULAR: Regular S1 S2, GI: soft, normoactive bowel sounds, : No Renal angle tenderness; EXTREMITIES: No edema, no clubbing, MUSCULOSKELETAL: no muscle wasting NEURO: Awake; no lateralizing signs. SKIN: No Rash PSYCH; Flat affect Assessment & Plan Assessment/Plan (1) Hypotension: PLAN: Plan Patient is a 74-year-old gentleman resident at an extended care facility who was brought to the emergency department with hypotension productive cough as well as diarrhea. Patient tested positive for C. difficile. An assessment of sepsis was made admitted to the intensive care unit for further management 1. Sepsis secondary to healthcare acquired pneumonia as well as C. difficile colitis Patient admitted to the intensive care unit resuscitated with IV fluids per protocol as well as antibiotics and cultures obtained. Response to therapy monitored with serial lactic acid levels CT chest/abdomen/pelvis with patchy infiltrates and pancolitis ?08/23/2024; patient was transferred to the MedSur unit following stabilization of blood pressure and goal remains relatively on the low side ? 08/24/2024; patient blood pressure still remains low 2. Recurrent C. difficile colitis ? Patient is on p.o. vancomycin 3. Acute exacerbation of ulcerative colitis . Patient has received Remicade and continues to experience symptoms. Case was discussed with GI and patient has been refractory to our management and is outside the scope of management at our hospital and is recommended to be transferred for further management whether that be medical, or surgical evaluation for colectomy or diverting ileostomy ? 08/23/2024; patient still awaiting transfer to [facility] Pending bed availability 4. Anemia ? Secondary to acute blood loss anemia from patient ulcerative colitis superimposed on chronic disorder monitoring H&H and transfuse if patient becomes symptomatic or hemoglobin falls below 7 ? 08/23/2024; hemoglobin down to 7.7 repeat H&H ordered for a.m. ? 08/24/2024; hemoglobin down to 7.4 5. Hyponatremia ? Secondary to hypovolemic hyponatremia resolved with IV fluid resuscitation subsequent monitoring with daily BMPs ordered 6. Dyslipidemia ?Patient is on statin therapy, continued at home dose 7. Diabetes mellitus type II - on long acting insulin, Accu-Cheks a.c. and at bedtime and covered with sliding scale insulin 8. GERD ? On PPI 9. Hypotension ? Patient has some chronicity to his hypotension do suspect adrenal insufficiency from prolonged illness ordered random cortisol level patient started on midodrine ? 08/23/2024; patient blood pressure still remains on the low side. Random cortisol came back markedly elevated appropriate response to his chronic medical conditions ruling out adrenal insufficiency 10. Severe malnutrition -Related to: acute illness related to altered GI function and inadequate oral intake As evidenced by: 5% unintentional weight loss in less than 1 month and PO meeting less than 50% estimated nutrition 11. Hypocalcemia ? Secondary to hypoalbuminemia monitoring 12. Hypokalemia -Corrected per protocol, repeat labs ordered for a.m. 13. DVT prophylaxis ? Subcu heparin Disposition; plan is for patient to be transferred to [facility] Pending bed availability Charges/Coding Visit Charges Inpatient E&M: 92999 Subs Hosp L3
[2024-08-24 07:42] LABS: Absolute Lymphocyte Count 0.71 X10^3/uL (0.83-4.51); Absolute Neutrophil Count 3.7 X10^3/uL (2.0-7.7); Hematocrit 23.7 % (40-54); Hemoglobin 7.4 g/dL (13.0-16.5); Lymphocyte # 0.71 X10^3/ul (0.83-4.51); Lymphocyte % 15.6 % (19-41); Mean Corp Hgb Conc 31.2 g/dL (32-36); Mean Corpuscular Hgb 27.2 pg (27.0-32.0); Mean Corpuscular Volume 87.1 fL (80-94); Monocyte# 0.11 X10^3/uL; Monocyte% 2.4 % (0-10); NRBC Flagged by Analyzer 0 % (0-5); Neutrophil # 3.71 X10^3/uL (2.7-7.7); Neutrophil % 81.3 % (47-70); POSITIVE MORPHOLOGY YES; Platelet Count 132 K/mm3 (150-450); RBC Distribution Width SD 50.7 fl (35.1-43.9); Red Blood Count 2.72 M/mm3 (4.6-6.2); White Blood Count 4.6 K/mm3 (4.4-11.0)
[2024-08-24 07:53] LABS: Differential Indicated SCAN CRITERIA MET
[2024-08-24] MEDS: Pantoprazole Sodium 40 MG Tablet PO (08:18)
[2024-08-24] MEDS: Colestipol 1 GM TABLET PO (08:18)
[2024-08-24] MEDS: MESALAMINE 400 MG CAPSULE.DR PO (08:19)
[2024-08-24] MEDS: Folic Acid 1 MG Tablet PO (08:23)
[2024-08-24 08:43] LABS: Anion Gap 6 (5-15); BUN 12 mg/dL (7-18); BUN/Creat Ratio 18.8 RATIO (10-20); Calcium,Total 7.5 mg/dL (8.5-10.1); Chloride 111 mmol/L (98-107); Creatinine, Serum 0.64 mg/dL (0.70-1.30); EST Glomerular Filtration Rate 131 mL/min (>60); Est Glom Filt Rate - Afr Amer 158 mL/min (>60); Glucose 98 mg/dL (74-106); Sodium Level 139 mmol/L (136-145)
--- NOTE | 2024-08-24 08:56 | NURSING ---
Ricki Chaves called, update given. Still no bed available for transfer. Requesting to speak to Dr. Jennifer BOO aware and updated transfer center on patient's status.
[2024-08-24 10:05] LABS: Differential Comment SCANNED
[2024-08-24 10:06] LABS: Platelet Estimate SLT DEC (ADEQ); Red Cell Morphology NORM C+C NORMAL (NORM C&C)
[2024-08-24] MEDS: Vancomycin IV 1,000 MG/200 ML BAG 200 MG IV (10:19)
[2024-08-24] MEDS: Insulin Lispro 100 UNIT/ML INSULN.PEN SC (12:47)
[2024-08-24 12:48] LABS: Bedside Glucose 195 mg/dL (74-106)
[2024-08-24] MEDS: Glucerna Shake 120 ML LIQUID PO (12:54)
--- NOTE | 2024-08-24 13:25 | PN.CC_ITS ---
Objective Data Objective Data Vital Signs: Vital Signs Last response 3 Temperature 36.7 C 08/24/24 10:13 Temperature Source Oral 08/24/24 10:13 Pulse Rate 71 08/24/24 10:13 Respiratory Rate 18 08/24/24 10:13 Respiratory Effort Normal, Non-Labored 08/24/24 07:56 Respiratory Depth Normal 08/24/24 07:56 Respiratory Pattern Normal 08/24/24 07:56 Blood Pressure 89/52 L 08/24/24 10:13 Blood Pressure Mean 64 08/24/24 10:13 Blood Pressure Source Monitor 08/24/24 10:13 Blood Pressure Position Semi-Fowlers 08/24/24 10:13 Blood Pressure Location Right Arm 08/24/24 10:13 Pulse Ox 96 08/24/24 10:13 Oxygen Delivery Method Nasal Cannula 08/24/24 10:13 Oxygen Flow Rate (L/min) 4 08/24/24 10:13 I&O: I&O Last 24 Hours 3 08/23/24 08/24/24 08/24/24 23:59 11:59 23:59 Intake Total 900 / 1300 500 / 1100 600 / 1100 Balance 900 / 1300 500 / 1100 600 / 1100 I&O: Total Stay 3 08/21/24 08:34 thru 08/24/24 12:00 Intake Total 7085 Balance 7085 Current Meds Ordered / Administered: Current meds ordered / Administered 3 Generic Name Dose Route Start Last Admin Trade Name Freq PRN Reason Stop Dose Admin Acetaminophen 650 mg 08/21/24 16:45 Acetaminophen 325 Mg Tablet PO Q6H PRN PRN Pain 1-10 Or Fever >100.7 Albuterol Sulfate 2.5 mg 08/21/24 16:45 Albuterol 2.5 Mg/3 Ml Vial.Neb. INHALATION Q2H PRN PRN SOB &/OR WHEEZING Albuterol Sulfate 2.5 mg 08/22/24 09:00 Albuterol 2.5 Mg/3 Ml Vial.Neb. INHALATION Q6H PRN shortness of breath or wheezing Atorvastatin Calcium 10 mg 08/21/24 22:00 08/23/24 22:44 Atorvastatin Calcium 10 Mg Tablet PO 10 mg QHS KORINA Administration Baclofen 5 mg 08/22/24 14:00 08/24/24 12:55 Baclofen 10 Mg Tablet PO Not Given TID KORINA Calamine/Phenol 1 applic 02/07/25 14:00 08/24/24 12:54 Menthol/Lanolin/Calamine/Znox 113 Gm Tube TOPICAL 1 applic TID KORINA Administration Protocol Colestipol HCl 1 gm 08/21/24 22:00 08/24/24 08:18 Colestipol 1 Gm Tablet PO 1 gm BID KORINA Administration Dicyclomine HCl 10 mg 08/22/24 11:00 08/24/24 12:47 Dicyclomine 10 Mg Capsule PO 10 mg TIDAC KORINA Administration Folic Acid 1 mg 08/23/24 08:00 08/24/24 08:23 Folic Acid 1 Mg Tablet PO 1 mg BREAKFAST KORINA Administration Glucagon 1 mg 08/21/24 16:45 Glucagon 1 Mg/Ml Syringe IM X1 PRN HYPOGLYCEMIA Protocol Guaifenesin 10 ml 08/22/24 18:06 08/22/24 22:24 Guaifenesin 10 Ml Udc (200mg/10ml) PO 10 ml Q4H PRN PRN Administration COUGH Hydrocortisone Sodium Succinate 50 mg 08/21/24 16:45 08/24/24 12:48 Hydrocortisone Sod Succinate 100 Mg/2 Ml Vial IV 50 mg Q6 KORINA Administration Dextrose 250 mls @ 0 mls/hr 08/21/24 16:45 Dextrose 10%-Water IV .Q0M PRN HYPOGLYCEMIA Protocol As Directed Piperacillin Sod/Tazobactam 50 mls @ 12.5 mls/hr 08/21/24 22:00 08/24/24 13:04 Sod 3.375 gm/ Sodium Chloride IV 12.5 mls/hr Q8 KORINA Administration Sodium Chloride 100 mls @ 15 mls/hr 08/21/24 16:57 IV .Q6H40M PRN Saline Flush Sodium Chloride 100 mls @ 15 mls/hr 08/21/24 16:57 IV .Q6H40M PRN Additional IVPB Infusion Vancomycin IV-PHARMACY TO DOSE 500 mls @ 250 mls/hr 08/21/24 20:21 1 each/ Sodium Chloride IV X1 PRN Rx to Dose Protocol Vancomycin HCl 1,000 mg in 200 mls @ 200 mls/hr 08/24/24 09:00 08/24/24 11:20 Vancomycin IV Infused Q12H KORINA Infusion Insulin Human Lispro 0 unit 08/21/24 16:45 08/24/24 12:47 Insulin Lispro 100 Unit/Ml Insuln.Pen SC 2 units ACHS KORINA Administration Protocol Melatonin 3 mg 08/21/24 16:45 08/22/24 21:46 Melatonin 3 Mg Tablet PO 3 mg QHS PRN PRN Administration INSOMNIA Mesalamine 400 mg 08/21/24 22:00 08/24/24 08:19 Mesalamine 400 Mg Capsule.Dr PO 400 mg BID KORINA Administration Midodrine 10 mg 08/22/24 12:00 08/24/24 12:32 Midodrine Hcl 5 Mg Tablet PO 10 mg TIDCM KORINA Administration Nutritional Formula (Lactose Free) 120 ml 08/22/24 17:00 08/24/24 12:54 Glucerna Shake 120 Ml Liquid PO 120 ml TIDCM KORINA Administration Ondansetron HCl 4 mg 08/21/24 16:45 Ondansetron 4 Mg/2 Ml Vial IV Q8H PRN PRN NAUSEA/VOMITING Pantoprazole Sodium 40 mg 08/22/24 10:00 08/24/24 08:18 Pantoprazole Sodium 40 Mg Tablet PO 40 mg DAILY KORINA Administration Pregabalin 150 mg 08/21/24 22:00 08/24/24 08:20 Pregabalin 75 Mg Capsule PO Not Given BID KORINA Sodium Chloride 10 - 40 ml 08/21/24 16:57 08/24/24 06:16 0.9% Saline Lock 10 Ml Syringe IV 10 ml UD PRN Administration Open End PICC Flush Sodium Chloride 10 - 40 ml 08/21/24 16:57 08/24/24 00:46 0.9 % Nacl (Sterile) Posiflush 10 Ml IV 10 ml UD PRN Administration Port access or dressing change Vancomycin HCl 125 mg 08/21/24 18:00 08/24/24 12:54 Vancomycin 125 Mg/5 Ml Susp Po.Syringe PO 125 mg Q6 KORINA Administration Vancomycin Protocol 1 lab 08/25/24 19:30 Vancomycin Trough/Random Due MC 08/25/24 21:30 DAILY KORINA Lab / Micro Data Attestation: I reviewed the patient's lab results. 08/24/24 06:38 08/24/24 06:38 Labs: Laboratory Results - last 24 hr 08/23/24 17:11: POC Glucose 177 H 08/23/24 21:39: POC Glucose 108 H 08/24/24 06:38: WBC 4.6, RBC 2.72 L, Hgb 7.4 L, Hct 23.7 L, MCV 87.1, MCH 27.2, MCHC 31.2 L, RDW Std Deviation 50.7 H, RDW Coeff of Janice 16.0 H, Plt Count 132 L, MPV 10.0, Immature Gran % (Auto) 0.700, Neut % (Auto) 81.3 H, Lymph % (Auto) 15.6 L, Elliott % (Auto) 2.4, Eos % (Auto) 0.0, Baso % (Auto) 0.0, Absolute Neuts (auto) 3.7, Absolute Lymphs (auto) 0.71 L, Nucleated RBC % 0, Differential Comment SCANNED, Platelet Estimate SLT DEC, RBC Morphology NORM C+C, Sodium 139, Potassium 3.0 L, Chloride 111 H, Carbon Dioxide 22.0, Anion Gap 6, BUN 12, C reatinine 0.64 L, Estim Creat Clear Calc 77.70, Est GFR (MDRD) Af Amer 158, Est GFR (MDRD) Non-Af 131, BUN/Creatinine Ratio 18.8, Glucose 98, Calcium 7.5 L 08/24/24 06:49: POC Glucose 95 08/24/24 12:18: POC Glucose 195 H Micro: Microbiology 08/21/24 12:40 Blood Culture (Wb) - Anticubital Left Blood Culture - Preliminary No growth in 48 hours. 08/21/24 09:28 Blood Culture (Wb) - Anticubital Right Blood Culture - Preliminary No growth in 48 hours. Rhythm Strip Rhythm Strip: Sinus Rhythm Rate: 95 Ectopy: None Assessment and Plan . Assessment and plan: 1. Sepsis The patient presented to the hospital with sepsis due to suspected pneumonia as well as + C. difficile colitis with acute sepsis related organ dysfunction as evidenced by hypotension and lactic acidemia. This problem is resolving. 2. Ulcerative colitis flare with anemia CT imaging of the abdomen demonstrated evidence of pancolitis. The patient has received Remicade and high-dose steroids in the past with continued colitis and symptoms. Therefore, gastroenterology is currently recommending transfer to tertiary care facility for surgical evaluation for colectomy or diverting ileostomy. Although the patient has been accepted at [facility], we are still awaiting bed availability. Plan to send type and screen today. Continue to monitor H&H and transfuse if hemoglobin drops below 7 g/dL. 3. History of GERD/neuropathy/hyperlipidemia/diabetes mellitus Complicates care, management, recovery and prognosis. Continue sliding scale insulin coverage for now. RECOMMENDATIONS: 1. Continue empiric antimicrobials. 2. Stress dose steroids as ordered. 3. Continue PPI therapy. 4. Continue scheduled midodrine. 5. Send type and screen. 6. Continue to monitor H&H and transfuse if hemoglobin drops below 7 g/dL. 7. Awaiting transfer to [facility], pending bed availability. Critical Care Time: 50 minutes The entirety of this encounter was done via Telemedicine Physical Exam Const alert and no apparent distress General Appearance: comfortable Chest inspection of chest normal Resp normal respiratory effort Subjective Subjective Incontinent earlier. States he slept OK, still with cough. Unable to get OOB, states his legs are too weak.
--- NOTE | 2024-08-24 16:09 | PCM.DC.SUM ---
Providers Date of Admission: 08/21/24 Date of Discharge: 08/24/24 Primary Care Physician: Dr. Reji Levin MD Consultations 08/21/24 16:45 Consult: Gastroenterology Routine Consulting Provider: Ra Hemalathahsaan Reason for Consult: ulcerative colitis- awaiting transfer bed at [facility] EMERGENT Consult: No Notified: Yes Date Notified: 08/21/24 Time Notified: 16:05 Method of Notification: Text Consult: Production Cell Leader / Pulmonary Medicine Routine Consulting Provider: Pulmonary Medicine holden [place] Reason for Consult: icu, suspect sepsis, hypotensive initially EMERGENT Consult: No Notified: Yes Date Notified: 08/21/24 Time Notified: 16:04 Method of Notification: Text Reason For Visit: HYPOTENSION Diagnosis Discharge Diagnosis (1) Hypotension: Status: Acute Code(s): I95.9 - Hypotension, unspecified Plan Patient is a 74-year-old gentleman resident at an [facility] care facility who was brought to the emergency department with hypotension productive cough as well as diarrhea. Patient tested positive for C. difficile. An assessment of sepsis was made admitted to the intensive care unit for further management 1. Sepsis secondary to healthcare acquired pneumonia as well as C. difficile colitis Patient admitted to the intensive care unit resuscitated with IV fluids per protocol as well as antibiotics and cultures obtained. Response to therapy monitored with serial lactic acid levels CT chest/abdomen/pelvis with patchy infiltrates and pancolitis ?08/23/2024; patient was transferred to the MedSurg unit following stabilization of blood pressure and goal remains relatively on the low side ? 08/24/2024; patient blood pressure still remains low 2. Recurrent C. difficile colitis ? Patient is on p.o. vancomycin 3. Acute exacerbation of ulcerative colitis . Patient has received Remicade and continues to experience symptoms. Case was discussed with GI and patient has been refractory to our management and is outside the scope of management at our hospital and is recommended to be transferred for further management whether that be medical, or surgical evaluation for colectomy or diverting ileostomy ? 08/23/2024; patient still awaiting transfer to [facility] Pending bed availability 4. Anemia ? Secondary to acute blood loss anemia from patient ulcerative colitis superimposed on chronic disorder monitoring H&H and transfuse if patient becomes symptomatic or hemoglobin falls below 7 ? 08/23/2024; hemoglobin down to 7.7 repeat H&H ordered for a.m. ? 08/24/2024; hemoglobin down to 7.4 5. Hyponatremia ? Secondary to hypovolemic hyponatremia resolved with IV fluid resuscitation subsequent monitoring with daily BMPs ordered 6. Dyslipidemia ?Patient is on statin therapy, continued at home dose 7. Diabetes mellitus type II - on long acting insulin, Accu-Cheks a.c. and at bedtime and covered with sliding scale insulin 8. GERD ? On PPI 9. Hypotension ? Patient has some chronicity to his hypotension do suspect adrenal insufficiency from prolonged illness ordered random cortisol level patient started on midodrine ? 08/23/2024; patient blood pressure still remains on the low side. Random cortisol came back markedly elevated appropriate response to his chronic medical conditions ruling out adrenal insufficiency 10. Severe malnutrition -Related to: acute illness related to altered GI function and inadequate oral intake As evidenced by: 5% unintentional weight loss in less than 1 month and PO meeting less than 50% estimated nutrition 11. Hypocalcemia ? Secondary to hypoalbuminemia monitoring 12. Hypokalemia -Corrected per protocol, repeat labs ordered for a.m. 13. DVT prophylaxis ? Subcu heparin Disposition; plan is for patient to be transferred to [facility] Pending bed availability Medications at Discharge Home Medications albuterol sulfate 90 mcg/actuation aerosol inhaler 1 inh inhalation Q6H PRN shortness of breath or wheezing #8.5 grams 02/26/21 pregabalin 150 mg capsule 150 mg PO BID . 06/19/24 simvastatin 20 mg tablet 20 mg PO QHS . 06/19/24 triamcinolone acetonide 0.5 % topical cream 1 applic topical BID RASH 06/19/24 dicyclomine 10 mg capsule 10 mg PO TIDAC . #60 caps 07/23/24 mesalamine 500 mg capsule,extended release (Pentasa) 500 mg PO BID pain/inflammation 30 days #60 caps 07/23/24 pantoprazole 40 mg tablet,delayed release 40 mg PO DAILY GERD #30 tabs 07/23/24 baclofen 10 mg tablet 5 mg (1/2 x 10 mg) PO TID pain 30 days #0 tabs 08/05/24 colestipol 1 gram tablet 1 g PO BID #0 tabs 08/05/24 folic acid 1 mg tablet 1 mg PO BREAKFAST #0 tabs 08/05/24 insulin glargine 100 unit/mL subcutaneous solution (Lantus U-100 Insulin) 8 unit (0.08 mL) subcut DAILY 1 month #10 mL 08/05/24 insulin lispro 100 unit/mL subcutaneous pen (Humalog KwikPen (U-100) Insulin) 10 unit (0.1 mL) subcut TIDAC #0 mL 08/05/24 insulin lispro 100 unit/mL subcutaneous pen (Humalog KwikPen (U-100) Insulin) See Protocol subcut ACHS #0 mL 08/05/24 prednisone 20 mg tablet 40 mg (2 x 20 mg) PO DAILYCM 30 days #0 tabs 08/05/24 vancomycin 25 mg/mL oral solution (Firvanq) 125 mg (5 mL) PO Q6 7 days #140 mL 08/05/24 Physical Exam Narrative GENERAL: Frail looking HEENT: Atraumatic; normocephalic EYES; Anicteric, Normal Conjunctiva NECK; supple, normal thyroid, RESPIRATORY: Diminished to auscultation CARDIOVASCULAR: Regular S1 S2, GI: soft, normoactive bowel sounds, : No Renal angle tenderness; EXTREMITIES: No edema, no clubbing, MUSCULOSKELETAL: no muscle wasting NEURO: Awake; no lateralizing signs. SKIN: No Rash PSYCH; Flat affect Weight / BMI Weight Weight: 66.8 kg Body Mass Index (BMI) 20.6 ABG / Lab / Microbiology Data 08/24/24 06:38 08/24/24 06:38 Laboratory: Laboratory Results - last 24 hr 08/23/24 17:11: POC Glucose 177 H 08/23/24 21:39: POC Glucose 108 H 08/24/24 06:38: WBC 4.6, RBC 2.72 L, Hgb 7.4 L, Hct 23.7 L, MCV 87.1, MCH 27.2, MCHC 31.2 L, RDW Std Deviation 50.7 H, RDW Coeff of Janice 16.0 H, Plt Count 132 L, MPV 10.0, Immature Gran % (Auto) 0.700, Neut % (Auto) 81.3 H, Lymph % (Auto) 15.6 L, [place] % (Auto) 2.4, Eos % (Auto) 0.0, Baso % (Auto) 0.0, Absolute Neuts (auto) 3.7, Absolute Lymphs (auto) 0.71 L, Nucleated RBC % 0, Differential Comment SCANNED, Platelet Estimate SLT DEC, RBC Morphology NORM C+C, Sodium 139, Potassium 3.0 L, Chloride 111 H, Carbon Dioxide 22.0, Anion Gap 6, BUN 12, Creatinine 0.64 L, Estim Creat Clear Calc 77.70, Est GFR (MDRD) Af Amer 158, Est GFR (MDRD) Non-Af 131, BUN/Creatinine Ratio 18.8, Glucose 98, Calcium 7.5 L 08/24/24 06:49: POC Glucose 95 08/24/24 12:18: POC Glucose 195 H Microbiology: Microbiology 08/21/24 12:40 Blood Culture (Wb) - Anticubital Left Blood Culture - Preliminary No growth in 48 hours. 08/21/24 09:28 Blood Culture (Wb) - Anticubital Right Blood Culture - Preliminary No growth in 48 hours. 08/21/24 13:00 Urine, Random Legionella Antigen - Final 08/21/24 13:00 Urine, Random Streptococcus pneumoniae Antigen (M - Final 08/21/24 13:05 Urine, Random Urine Culture - Final Mixed Gram Pos & Gram Neg Org 08/22/24 04:10 Stool Enteric Bacteriology - Final 08/22/24 04:10 Stool C. difficile GDH Antigen & Toxins - Final Toxigenic C. difficile 08/22/24 04:10 Stool Clostridioides difficile (PCR) - Final 08/21/24 17:25 Mucosa - Nose Respiratory Panel (PCR) - Final 08/21/24 09:10 Mucosa - Nose SARS-CoV-2, Influenza & RSV (PCR) - Final D/C Instructions Discharge Diet: No restrictions Discharge Activity: Return to Normal Activity Call your doctor if you observe: Fever of 101 or Higher, Shortness of breath, Fainting spells and Chest pain DC O2, CPAP, BIPAP Needs Home O2 Discharge instructions: No Meaningful Use Info Meaningful Use Meaningful Use Diagnoses (Choose all that apply): None applicable Ischemic Stroke Statin Dosing Therapy Reference: STATIN DOSE THERAPY REFERENCE: * Patients > 75 years receive moderate or high dose statin therapy. * Patients 75 years or YOUNGER should receive HIGH intensity statin dose unless contraindicated. You will be required to document reason for non-treatment if statin daily dose does not meet guidelines. HIGH DOSE STATIN THERAPY DAILY Atorvastatin > than or = to 40 mg Rosuvastatin > than or = to 20 mg Amlodipine + Atorvastatin > than or = to 2.5/40 mg Ezetimibe + Simvastatin 10/80 mg Simvastatin 80mg Discharge Plan Admission Admit Date/Time: 08/21/24 15:55 Attending Provider: Khris Rodriguez Primary Care Provider: Reji Levin Consulting Providers: Angelia Pollock; Dangelo Montgomery; Luc Yo; Delvis Parker; Ji Troncoso; Khris Dougherty; Javier Nava; Willie Ruiz; Mini Bridges; Ramy Sosa; Jose A Shaffer; Lloyd Burnett; Crystal Atwood; Henry Nair; Snow Keith; Adis Irwin; Juan Ramon Wylie; Bhaskar Louie; Jax Solo; Jimbo Campos; Michael Barraza; John Pena; Derek Coates; Shay Hernández; Celso Traylor; Dorcas Vizcarra NP; Ann-Marie Jewell; Guicho Penny Discharge Orders/Prescriptions Prescriptions: Continued albuterol sulfate 90 mcg/actuation HFA aerosol inhaler 1 inh inhalation Q6H PRN (Reason: shortness of breath or wheezing) Qty: 8.5 1RF folic acid 1 mg Tablet 1 mg PO BREAKFAST Qty: 0 0RF colestipol 1 gram Tablet 1 g PO BID Qty: 0 0RF insulin lispro [Humalog KwikPen Insulin] 100 unit/mL Insulin Pen See Protocol subcut ACHS Qty: 0 0RF Protocol: 1. Sliding Scale Insulin Low Dosing Condition: 150-224 mg/dl = 1 unit Condition: 225-299 mg/dl = 2 units Condition: 300-374 mg/dl = 3 units Condition: 375-449 mg/dl = 4 units Condition: Greater than 449 call physician Protocol Text: Suggested for: - Patients on Total Daily Insulin Dose of 15-27 units - Thin, elderly, renal patients LOW DOSING ALGORITHM vancomycin [Firvanq] 25 mg/mL Recon Soln 125 mg PO Q6 7 Days Qty: 140 0RF prednisone 20 mg Tablet 40 mg PO DAILYCM 30 Days Qty: 0 0RF insulin lispro [Humalog KwikPen Insulin] 100 unit/mL Insulin Pen 10 unit subcut TIDAC Qty: 0 0RF Rx Instructions: Hold if glucose less than 130 mg/dl insulin glargine [Lantus U-100 Insulin] 100 unit/mL solution 8 unit subcut DAILY 30 Days Qty: 10 2RF Rx Instructions: Hold if glucose less than 130 mg/dl baclofen 10 mg tablet 5 mg PO TID 30 Days Qty: 0 0RF Patient Comments: take 1 tablet by mouth three times a day Rx Instructions: Hold for lethargy/sedation. Hold for SBP less than 100 mmHg triamcinolone acetonide 0.5 % cream 1 applic TOPICAL BID Patient Comments: RASH ON LEG simvastatin 20 mg tablet 20 mg PO QHS pregabalin 150 mg capsule 150 mg PO BID pantoprazole 40 mg Tablet,Delayed Release (Dr/Ec) 40 mg PO DAILY Qty: 30 0RF dicyclomine 10 mg Capsule 10 mg PO TIDAC Qty: 60 0RF mesalamine [Pentasa] 500 mg capsule, extended release 500 mg PO BID 30 Days Qty: 60 0RF Referrals / Follow Up: Reji Levin MD [Primary Care Provider] - Within 2 Weeks Disposition Disposition (needs filled in before D/C Order can be placed): Acute Care Hospital Charges/Coding Visit Charges Inpatient E&M: 04321 Disch Hosp >30min
== END 2024-08-24 16:26 | disposition short-term general hospital (02) | DRG 871 ==
LOC: ED 15:01 → ICU 16:11 → MS3 08-22 12:07
PROVIDERS: Admitting Provider Internal Medicine; Emergency Provider Emergency Medicine; PCP Family Medicine; Visit Provider Internal Medicine
DX: A41.9 Sepsis, unspecified organism (principal); E43 Unspecified severe protein-calorie malnutrition; J18.9 Pneumonia, unspecified organism; E87.20 Acidosis, unspecified; A04.71 Enterocolitis due to Clostridium difficile, recurrent; D62 Acute posthemorrhagic anemia; K51.011 Ulcerative (chronic) pancolitis with rectal bleeding; E87.1 Hypo-osmolality and hyponatremia; E83.51 Hypocalcemia; E11.40 Type 2 diabetes mellitus with diabetic neuropathy, unspecified; I10 Essential (primary) hypertension; I71.43 Infrarenal abdominal aortic aneurysm, without rupture; G25.81 Restless legs syndrome; E88.09 Other disorders of plasma-protein metabolism, not elsewhere classified; E11.65 Type 2 diabetes mellitus with hyperglycemia; I95.9 Hypotension, unspecified; K21.9 Gastro-esophageal reflux disease without esophagitis; Z79.4 Long term (current) use of insulin; F10.90 Alcohol use, unspecified, uncomplicated; E78.5 Hyperlipidemia, unspecified; Z11.52 Encounter for screening for COVID-19; Z87.891 Personal history of nicotine dependence; Z79.51 Long term (current) use of inhaled steroids; Z79.899 Other long term (current) drug therapy; Z79.52 Long term (current) use of systemic steroids; Z79.02 Long term (current) use of antithrombotics/antiplatelets; Z75.1 Person awaiting admission to adequate facility elsewhere; Y95 Nosocomial condition; Z68.20 Body mass index [BMI] 20.0-20.9, adult
CPT/HCPCS: 36415; 71045; 71260; 74177; 80048; 80053; 80202; 81001; 82533; 82962; 83605; 83735; 84100; 84145; 85025; 85610; 85730; 86850; 86900; 86901; 87040; 87086; 87088; 87449; 87493; 87506; 87631; 87633; 93005; 97162; 97166; 97530; 97535; 97802; 99285; Q9967; A4216

== ENCOUNTER 2024-10-08 16:14 | Inpatient (IN) | payer OTHER, SELFPAY ==
[2024-10-08] VITALS (29 sets, daily range): BP systolic 93–118; BP diastolic 48–97; PULSE 93–103; RESP 14–35; TEMP 36.3–37; O2SAT 94–100; BMI 19.6
--- NOTE | 2024-10-08 16:48 | EX.ED.DYSGE1 ---
HPI History of Present Illness Chief Complaint: Alt LOC PFSH PFSH Medical History Weakness Colitis Hypertension Irritable bowel Restless legs Diabetes GERD (gastroesophageal reflux disease) GI bleed Ulcerative colitis Alcohol abuse Arthritis Former smoker High cholesterol Diverticulitis Home Medications ?Medication ?Instructions ?Recorded ?Last Taken ?Type albuterol sulfate 90 mcg/actuation 1 inh inhalation Q6H PRN shortness 02/26/21 Unknown Rx aerosol inhaler of breath or wheezing #8.5 grams pregabalin 150 mg capsule 150 mg PO BID PAIN 06/19/24 07/27/24 History simvastatin 20 mg tablet 20 mg PO QHS HYPERLIPIDEMIA 06/19/24 07/26/24 History dicyclomine 10 mg capsule 10 mg PO TIDAC COLITIS #60 caps 07/23/24 07/27/24 Rx mesalamine 500 mg capsule,extended 500 mg PO BID pain/inflammation 30 07/23/24 07/27/24 Rx release (Pentasa) days #60 caps pantoprazole 40 mg tablet,delayed 40 mg PO DAILY GERD #30 tabs 07/23/24 07/27/24 Rx release acetaminophen 325 mg tablet 650 mg PO Q6H PRN fever or pain 10/08/24 Unknown History (Aminofen) collagenase clostridium histo. 250 1 applic topical DAILY WOUND CARE 10/08/24 Unknown History unit/gram topical ointment (Santyl) dextromethorphan-guaifenesin 10 10 ml PO Q8H PRN cough 10/08/24 Unknown History mg-100 mg/5 mL oral syrup (Antitussive DM) hydrocortisone acetate 25 mg 25 mg WI Q12H MUCOUS MEMBRANE 10/08/24 Unknown History rectal suppository ipratropium 0.5 mg-albuterol 3 mg 3 ml inhalation Q8H PRN SOB 10/08/24 Unknown History (2.5 mg base)/3 mL nebulization soln multivitamin (Daily Multi-Vitamin 1 tab PO DAILY SUPPLEMENT 10/08/24 Unknown History tablet) Allergy/AdvReac Type Severity Reaction Status Date / Time ibuprofen AdvReac Upset Verified 10/08/24 16:25 Stomach Family History Mother COPD (chronic obstructive pulmonary disease) Father Myocardial infarction Surgical History History of bowel resection S/P colonoscopy S/P endoscopy Social History household members: spouse Smoking Status: Former smoker alcohol intake: current alcohol intake frequency: 3 or more drinks per day Alcohol type: beer details: Patient states that he drinks a 12 pack/day of 12 ounce beers substance use type: does not use EXAM Physical Exam Const Vital Signs: 10/08/24 16:17 10/08/24 16:24 10/08/24 16:29 Temperature 98.3 F 98.5 F Temperature Source Oral Oral Pulse Rate 103 H 103 H 102 H Respiratory Rate 25 H 25 H 34 H Blood Pressure 99/69 99/69 Blood Pressure Mean 79 79 Pulse Ox 98 97 97 Oxygen Delivery Method Nasal Cannula Nasal Cannula Oxygen Flow Rate (L/min) 2 2 Fraction of Inspired Oxygen (FIO2) 10/08/24 16:30 10/08/24 16:45 10/08/24 16:46 Temperature Temperature Source Pulse Rate 102 H 101 H 101 H Respiratory Rate 35 H 33 H 32 H Blood Pressure 101/72 102/70 Blood Pressure Mean 80 81 Pulse Ox 97 97 98 Oxygen Delivery Method Oxygen Flow Rate (L/min) Fraction of Inspired Oxygen (FIO2) 10/08/24 17:00 10/08/24 17:15 10/08/24 17:24 Temperature 98.6 F Temperature Source Oral Pulse Rate 102 H 103 H 99 Respiratory Rate 15 26 H 22 H Blood Pressure 99/70 109/71 112/97 H Blood Pressure Mean 80 83 102 Pulse Ox 97 97 98 Oxygen Delivery Method Nasal Cannula Oxygen Flow Rate (L/min) 2 Fraction of Inspired Oxygen (FIO2) 10/08/24 17:30 10/08/24 17:54 10/08/24 18:00 Temperature 97.5 F L Temperature Source Oral Pulse Rate 99 93 94 Respiratory Rate 26 H 24 H 22 H Blood Pressure 112/97 H 99/64 Blood Pressure Mean 104 75 Pulse Ox 98 96 99 Oxygen Delivery Method Nasal Cannula Oxygen Flow Rate (L/min) 2 Fraction of Inspired Oxygen (FIO2) 10/08/24 18:00 10/08/24 18:04 10/08/24 18:15 Temperature Temperature Source Pulse Rate 93 94 94 Respiratory Rate 25 H 18 32 H Blood Pressure 99/64 110/66 Blood Pressure Mean 75 80 Pulse Ox 98 99 98 Oxygen Delivery Method Oxygen Flow Rate (L/min) Fraction of Inspired Oxygen (FIO2) 10/08/24 18:30 10/08/24 18:31 10/08/24 18:45 Temperature Temperature Source Pulse Rate 95 95 95 Respiratory Rate 23 H 30 H 24 H Blood Pressure 96/62 107/81 H Blood Pressure Mean 74 91 Pulse Ox 99 99 98 Oxygen Delivery Method Oxygen Flow Rate (L/min) Fraction of Inspired Oxygen (FIO2) 10/08/24 19:00 10/08/24 19:00 10/08/24 19:15 Temperature 97.4 F L Temperature Source Temporal Pulse Rate 99 96 98 Respiratory Rate 25 H 24 H 21 H Blood Pressure 93/67 116/65 97/72 Blood Pressure Mean 75 82 81 Pulse Ox 100 98 Oxygen Delivery Method Nasal Cannula Oxygen Flow Rate (L/min) 2 Fraction of Inspired Oxygen (FIO2) 10/08/24 19:30 10/08/24 19:45 10/08/24 19:52 Temperature 97.4 F L Temperature Source Pulse Rate 99 99 99 Respiratory Rate 27 H 26 H 19 H Blood Pressure 104/74 93/67 93/67 Blood Pressure Mean 84 76 75 Pulse Ox 98 94 98 Oxygen Delivery Method Oxygen Flow Rate (L/min) Fraction of Inspired Oxygen (FIO2) 10/08/24 20:00 10/08/24 20:00 Temperature 97.8 F Temperature Source Oral Pulse Rate 98 Respiratory Rate 22 H Blood Pressure 101/67 105/74 Blood Pressure Mean 78 84 Pulse Ox 98 Oxygen Delivery Method Nasal Cannula Oxygen Flow Rate (L/min) Fraction of Inspired Oxygen (FIO2) 2 [facility] MDM Narrative Medical decision making narrative: HISTORY OF PRESENT ILLNESS: 74-year-old male presents with concern for change in mental status. Patient from skilled nursing. Per notes, the patient is usually alert and orient x 4. He is currently alert and orient x 3. Per patient has no complaints. Denies headaches, chest pain, abdominal pain, trouble urinating. REVIEW OF SYSTEMS: Pertinent positives: Change in mental status Pertinent negatives: Headache, chest pain, abdominal pain PHYSICAL EXAM: Nursing triage notes reviewed, Vital signs reviewed Constitutional: please see mdm HENT: MMM Eyes: Pupils equal round and reactive to light, Extraocular muscles intact Neck: No stridor, no JVD, full neck ROM Lungs: Clear to auscultation, No wheezing or rales. No increased work of breathing, no conversational dyspnea, no accessory muscle use, no nasal flaring. No respiratory distress noted Heart: Regular rate and rhythm, No murmurs, No rubs and No gallops, 2+ distal pulses (radial, femoral, posterior tibial) in all extremities Abdomen: Soft, there is no tenderness, rigidity, rebound or guarding, no obvious peritoneal signs, no palpable pulsatile abdominal masses, no auscultated abdominal bruit : No CVAT Extremities: No edema Neuro: No new focal neurological deficits, no lateralizing deficits, no obvious cranial nerve abnormalities, intact sensation and movement in all 4 extremities. Alert, oriented to person and place not exactly to time. NIH of 0. Skin: No rash or lesions noted MEDICAL DECISION MAKING: Chief Complaint: Altered mental status External records reviewed: Reviewed prior inpatient records Factors affecting care: GERD, diverticulitis, ulcerative colitis, alcohol abuse, hypertension, IBS Social determinants of health: lives at an extended care facility or skilled nursing History obtained from others: EMS Consults: none MDM Narrative: Patient was initially hemodynamically stable saturating 98% on 2 L nasal cannula (baseline). Patient blood pressure 9/60 was an improvement from recent studies from August and consistent with his baseline for the last 3 months. Initial exam without focal neurologic deficits. Patient was alert, oriented to person, place but thought it was August instead of September. He is essentially asymptomatic. I considered the following differential diagnosis: ICH, CVA, intra-abdominal pathology, electrolyte disturbance, anemia, arrhythmia, UTI I pursued an in-depth reasonable workup to try to elucidate the etiology of the patient's stated complaint. Include imaging of his abdomen given recent surgery to rule out any signs of intra-abdominal pathology that could be precipitating change in mental status ALL IMAGES (IF OBTAINED) HAVE BEEN PERSONALLY REVIEWED AND INTERPRETED BY MYSELF. EKG with sinus tachycardia rate of 101, normal axis, normal intervals, QTc 442, no STEMI Chest x-ray was read reviewed personally so showed evidence of a left upper lobe pneumonia CBC with no leukocytosis, no remarkable anemia, no thrombocytopenia BMP without evidence of significant electrolyte abnormalities, no anion gap, no acute kidney injury. Urinalysis shows no evidence of urinary inflammation suggestive of UTI CT scan head shows evidence of acute, subacute and chronic infarcts Awaiting CT scan abdomen pelvis Discussed with hospitalist Dr. Landrum who agreed admit the patient to PCU obvious long CT scan did not show anything acutely surgical. CT scan returned with no acute surgical pathology in the abdomen. Patient is appropriate for admission here at [facility]. The patient and/or family, caregivers express understanding. The patient and/or family, caregivers agrees with the plan. Shared decision making: I will have a discussion with the patient and or visitors regarding risk/benefits of further testing or admission. They will be made aware of of the risk/benefits inherent in this decision they will be given the opportunity to voice understanding. Total critical care time today provided was at least 0 minutes. This excludes separately billable procedures. Critical care time (if documented) is secondary to the patient having high probability of clinically significant/life threatening deterioration in the patient's condition which required my urgent intervention. Impression: 1. Altered mental status 2. Acute/subacute CVA 3. Left upper lobe pneumonia Dispo: Discharge home This note was generated with [employer] dictation software. It may contain incorrect words, spelling, and punctuation that were not noted in review of the chart prior to signing. Lab Data Labs: Laboratory Results - last 24 hr 10/08/24 10/08/24 17:15 17:27 WBC 8.7 RBC 3.88 L Hgb 11.4 L Hct 35.1 L MCV 90.5 MCH 29.4 MCHC 32.5 RDW Std Deviation 47.8 H RDW Coeff of Janice 14.5 Plt Count 188 MPV 9.5 Immature Gran % (Auto) 4.800 H Neut % (Auto) 70.0 Lymph % (Auto) 18.0 L [place] % (Auto) 5.7 Eos % (Auto) 1.0 Baso % (Auto) 0.5 Absolute Neuts (auto) 6.1 Absolute Lymphs (auto) 1.57 Nucleated RBC % 0 Sodium 134 Potassium 4.3 Chloride 99 Carbon Dioxide 25.8 Anion Gap 9 BUN 16 Creatinine 0.45 L Estim Creat Clear Calc 74.34 Est GFR (MDRD) Non-Af 111 BUN/Creatinine Ratio 34.9 H Glucose 155 H Hemoglobin A1c 6.1 Calcium 9.0 TSH 1.900 Urine Color Yellow Urine Clarity Clear Urine pH 5.0 Ur Specific [place] 1.020 Urine Protein 30 H Urine Glucose (UA) 1000 H Urine Ketones Negative Urine Occult Blood 10 H Urine Nitrite Negative Urine Bilirubin Negative Urine Urobilinogen Normal Ur Leukocyte Esterase Negative Urine RBC 0-5 SEEN Urine WBC 0-5 SEEN Ur Squamous Epith Cells 0-5 SEEN Calcium Oxalate Crystal 1+ Urine Bacteria 0 SEEN Urine Mucus 0 SEEN Ethyl Alcohol < 10.1 Radiography Diagnostic Testing: Clinical Impression(s) from Imaging Studies Abdomen/Pelvis CT 10/08/24 16:57 IMPRESSION: 1. Development of a right middle lobe cavitary lesion, which is indeterminate and may represent tuberculosis or other non tuberculosis mycobacterial infection, atypical infection due to aspiration pneumonia. Neoplasm such as pulmonary metastases or squamous cell carcinoma of the lung is felt less likely. 2. Increased ground-glass opacification and scattered pulmonary nodules, likely infectious/inflammatory in etiology such as pneumonitis/pneumonia. 3. Interval large bowel resection and anastomosis with fluid distention and mural thickening of the sigmoid colon and rectum distal to the anastomotic site. Findings are indeterminate and may represent postoperative change or recurrent colitis. Dr. Chavez discussed findings with Dr. Crandall at 9:30 pm on 10/08/24. 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 This would be in the anterior cerebral artery distribution and involve some polar and anteromedial frontal branches. This may alternately be due to old trauma with shearing injury. Concurrent acute and/or subacute ischemic change not excluded if felt clinically appropriate, an MRI of the brain with diffusion imaging could be performed for further evaluation. Reading Location: [facility] Chest X-Ray 10/08/24 17:50 IMPRESSION: 1. Findings compatible with lobar pneumonia. The known right middle lobe cavitary lesion is not well-visualized. 2. Cardiomegaly and pulmonary venous congestion. Reading Location: [facility] Discharge Plan Disposition Disposition: Acute Care Hospital [facility] Discharge Date/Time: 10/08/24 22:01
--- NOTE | 2024-10-08 16:57 | EKG12_ITS ---
Test Reason : Blood Pressure : */* mmHG Vent. Rate : 101 BPM Atrial Rate : 101 BPM P-R Int : 136 ms QRS Dur : 84 ms QT Int : 340 ms P-R-T Axes : 26 66 82 degrees QTcB Int : 440 ms Sinus tachycardia Otherwise normal ECG Confirmed by MICHAELA BOO, GERONIMO ([id number]), medical editor CARMELO FOREMAN ([id number]) on 10/09/2024 8:05:52 AM Referred By: Confirmed By: GERONIMO JENNINGS MD
--- NOTE | 2024-10-08 16:57 | CT_ITS ---
EXAM: CT head without contrast. CLINICAL HISTORY: History of hypertension, irritable bowel syndrome, colitis. No neurologic complaints specified. COMPARISON: None available. TECHNIQUE: Plain CT evaluation of the head is performed. FINDINGS: There is no evidence of cerebral hemorrhage or cerebral edema. No abnormal focal mass effect is seen in the brain. Mild global atrophy is noted. An area of hypodensity without mass effect that is geographic in nature is seen in the right inferior frontal lobe, involving the prefrontal area in the region of the orbital gyrus with sparing the more posteriorly located straight gyrus. This extends up to and may involve the genu of the corpus callosum. There is no evidence of subdural hematoma. Posterior fossa structures are unremarkable for age as visualized. Calvarium is unremarkable. Several small retention cysts are noted in the area of the roof of the left maxillary sinus but the sinuses are not fully covered on this exam. 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 This would be in the anterior cerebra l artery distribution and involve some polar and anteromedial frontal branches. This may alternately be due to old trauma with shearing injury. Concurrent acute and/or subacute ischemic change not excluded if felt clinically appropriate, an MRI of the brai n with diffusion imaging could be performed for further evaluation. [facility]
--- NOTE | 2024-10-08 16:57 | CT_ITS ---
PROCEDURE: ABDOMEN/PELVIS W IV CONT ONLY 10/08/2024 REASON FOR EXAM: 74-year-old male, recent bowel resection, altered mental status. Concern for intra-abdominal infection given recent surgery. TECHNIQUE: Abdomen and pelvis CT without and with intravenous contrast. Coronal and Sagittal reconstruction series were provided. PATIENT PREPARATION: Per protocol ORAL CONTRAST TYPE: None. CONTRAST: Isovue-300 VOLUME: 100mL One or more dose reduction techniques were used (e.g., Automated exposure control, adjustment of the mA and/or kV according to patient size, use of iterative reconstruction technique. RADIATION DOSE SUMMARY: CTDlvol: 27 mGy DLP: 627 mGycm COMPARISON: CT chest, abdomen and pelvis 08/21/2024. FINDINGS: Lung bases: Interval development of a cavitary lesion with mild, irregular wall thickening within the right middle lobe, previously visualized as a small area of ground-glass opacification. Increased ground-glass opacification and scattered pulmonary nodules throughout the bibasilar lungs. Stable moderate emphysema. No pleural effusion. Liver: The liver is normal in size with scattered hypodensities, likely cysts. The major portal veins are patent. No biliary ductal dilation. Gallbladder: No radiopaque stones within the gallbladder. Spleen: Unremarkable. Pancreas: Unremarkable. Adrenals: Stable bilateral adrenal nodules. Kidneys: Mild asymmetric right renal atrophy. Tiny nonobstructing right renal calculus. No hydronephrosis. Bladder: Punctate foci of gas within the nondependent urinary bladder, likely secondary to recent instrumentation. Diffuse circumferential bladder wall thickening. Reproductive Organs: Mildly enlarged prostate. Bowel: Interval large bowel resection and anastomosis within the right lower quadrant. There is fluid distention and mural thickening and enhancement of the bowel distal to the anastomotic site. Right upper abdominal colostomy in place. The bowel loops are normal in caliber. No ascites or free air. No inflammatory mass in the expected region of the appendix. Lymph nodes: No suspicious lymphadenopathy. Vasculature: IVC filter in place. Stable infrarenal abdominal aortic aneurysm measuring up to 4.4 cm in transverse diameter. 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 Bones/soft tissues: Mild body wall edema. AVN of the bilateral femoral heads. Thoracolumbar spondylosis. CT/Abdomen/Pelvis W IV Cont ONLY IMPRESSION: 1. Development of a right middle lobe cavitary lesion, which is indeterminate a nd may represent tuberculosis or other non tuberculosis mycobacterial infection, atypical infection due to aspiration pneu monia. Neoplasm such as pulmonary metastases or squamous cell carcinoma of the lung is felt less likely. 2. Increased ground-glass opacification and scattered pulmonary nodules, likely infectious/inflammatory in etiology such as pneumonitis/pneumonia. 3. Interval large bowel resection and anastomosis with fluid distention and mur al thickening of the sigmoid colon and rectum distal to the anastomotic site. Findings are indeterminate and may represent p ostoperative change or recurrent colitis. Dr. Chavez discussed findings with Dr. Crandall at 9:30 pm on 10/08/24. Reading Location: [id number]
[2024-10-08] MEDS: 0.9% Normal Saline (500mL Bag) 500 ML 1000 ML IV (17:14)
[2024-10-08 17:35] LABS: Bacteria 0 SEEN /hpf (None Seen); Mucous, Urine 0 SEEN /hpf (<or=2+)
[2024-10-08 17:36] LABS: Absolute Lymphocyte Count 1.57 X10^3/uL (0.83-4.51); Absolute Neutrophil Count 6.1 X10^3/uL (2.0-7.7); Basophil# 0.04 X10^3/uL; Basophil% 0.5 % (0-1); Eosinophil# 0.09 X10^3/uL; Hematocrit 35.1 % (40-54); Hemoglobin 11.4 g/dL (13.0-16.5); Lymphocyte # 1.57 X10^3/ul (0.83-4.51); Mean Corp Hgb Conc 32.5 g/dL (32-36); Mean Corpuscular Hgb 29.4 pg (27.0-32.0); Mean Corpuscular Volume 90.5 fL (80-94); Mean Platelet Vol. 9.5 fl (6.2-12.0); Monocyte% 5.7 % (0-10); NRBC Flagged by Analyzer 0 % (0-5); Neutrophil # 6.09 X10^3/uL (2.7-7.7); Platelet Count 188 K/mm3 (150-450); RBC Distribution Width CV 14.5 % (11.6-14.6); RBC Distribution Width SD 47.8 fl (35.1-43.9); Red Blood Count 3.88 M/mm3 (4.6-6.2); White Blood Count 8.7 K/mm3 (4.4-11.0)
[2024-10-08 17:43] LABS: Color, Urine Yellow (Yellow); Glucose, Dipstick 1000 mg/dl (Normal); Ketone-Dipstick Negative (Negative); Leukocyte Esterase-Dipstick Negative /ul (Negative); Nitrite-Dipstick Negative (Negative); Occult Blood-Urine 10 /ul (Negative); Protein-Dipstick 30 mg/dl (Negative); Urine Bilirubin Dipstick Negative (Negative); Urine Clarity Clear (Clear); Urine Urobilinogen Normal (Normal)
--- NOTE | 2024-10-08 17:50 | RAD_ITS ---
PROCEDURE: CHEST 1 VIEW (PORTABLE) 10/08/2024 REASON FOR EXAM: 74-year-old male, mental status change. TECHNIQUE: Frontal view of the chest. COMPARISON: Same day CT abdomen pelvis, CT chest 09/10/2024. FINDINGS: Hardware: None. Heart: Heart size is mildly enlarged with pulmonary vascular congestion. Lungs: Airspace opacification within the left upper and right mid lung zones. The known right middle lobe cavitary lesion is not well-visualized by radiographic imaging. No pleural effusion or pneumothorax. Bones: Degenerative changes are identified within the thoracic spine. RAD/Chest 1 View (Portable) IMPRESSION: 1. Findings compatible with lobar pneumonia. The known right middle lobe cavita ry lesion is not well-visualized. 2. Cardiomegaly and pulmonary venous congestion. Reading Location: [id number]
[2024-10-08 18:04] LABS: Calcium Oxalate Crystals Ur 1+ /hpf (<or=2+); Red Blood Cells-Urine 0-5 SEEN /hpf (0-5); Squamous Epithelial Cells - UA 0-5 SEEN /hpf (0-5); White Blood Cells 0-5 SEEN /hpf (0-5)
[2024-10-08 18:37] LABS: Anion Gap 9 (5-15); BUN 16 mg/dL (4-19); BUN/Creat Ratio 34.9 RATIO (10-20); Carbon Dioxide 25.8 mmol/L (21.0-32.0); Chloride 99 mmol/L (98-108); Creatinine, Serum 0.45 mg/dL (0.70-1.20); EST Glomerular Filtration Rate 111 (>60); Estimated Creatinine Clearance 74.34 ml/min (50-250); Glucose 155 mg/dL (70-99); Potassium 4.3 mmol/L (3.3-5.1); Sodium Level 134 mmol/L (133-145)
--- NOTE | 2024-10-08 19:27 | PCM.HP.STD ---
[facility] Date of Admission: 10/08/24 Date of Service: 10/08/24 Chief Complaint: Altered Mental Status. [facility] Narrative NISHA MARTINS, is a 74 M with a past medical history of hyperlipidemia; on atorvastatin and colestipol, DM-2; of unknown control on insulin glargine 8U daily plus insulin lispro SSI TID AC, diabetic neuropathy; on gabapentin, history of recurrent Clostridium difficile colitis; previously treated with oral vancomycin, history of ulcerative colitis; on mesalamine, prednisone and dicyclomine, history of diverticulitis, GERD; on pantoprazole, chronic anemia; with history of GI bleed, history of bowel resection, history of IBS, RLS, history of EtOH abuse; with patient previously drinking ~12 beers daily, former tobacco abuse, history of hypovolemic hyponatremia and recent admission here from August 21, 2024 to August 24, 2024 for Sepsis attributed to Pneumonia and AE of ulcerative colitis in the setting of a partially treated Clostridium difficile infection along with hyponatremia with patient ultimately transferred to [facility] who presents to [facility] ER complaining of altered mental status. Mr. Martins is not a fully-reliable historian at this time so information was gathered from chart, medical staff and computer. According to the records the staff at his [facility] noted patient was typically alert & oriented x 4 but today they noted a decrease to him only being alert & oriented x 3 so they had him sent in for further evaluation and treatment. The patient denies pain or significant complaints other than difficulty urinating and his initial evaluation in the ER revealed no acute neurologic deficits. 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 He was also noted to have laboratory evidence of Dehydration; with elevated BUN/creatinine ratio of 34.9 present on admission in addition to clinical evidence of Altered Mental Status and he was then admitted to the PCU under observation status for ongoing care for a stay that is expected to be less than 2 midnights. Update: Patient's CT was delayed in reading but when it resulted it revealed development of RML cavitary lesion which may represent tuberculosis or other mycobacterial infection or atypical infection due to aspiration with neoplasm such as pulmonary metastases or squamous cell carcinoma of the lung felt to be less likely in addition to increased ground-glass opacification and scattered pulmonary nodules, likely infectious/inflammatory in etiology such as pneumonitis or Pneumonia in addition to interval large bowel resection and anastomosis with fluid distention and mural thickening of the sigmoid colon and rectum distal to the anastomotic site, with findings indeterminate and may represent postoperative changes or recurrent colitis. He was then ordered to be on airborne precautions and was also started on empiric IV piperacillin-tazobactam plus probiotic with ID and pulmonology consults ordered fot the AM. [facility] Medical History Weakness Colitis Hypertension Irritable bowel Restless legs Diabetes GERD (gastroesophageal reflux disease) GI bleed Ulcerative colitis Alcohol abuse Arthritis Former smoker High cholesterol Diverticulitis Home Medications ?Medication ?Instructions ?Recorded ?Last Taken ?Type albuterol sulfate 90 mcg/actuation 1 inh inhalation Q6H PRN shortness 02/26/21 Unknown Rx aerosol inhaler of breath or wheezing #8.5 grams pregabalin 150 mg capsule 150 mg PO BID PAIN 06/19/24 07/27/24 History simvastatin 20 mg tablet 20 mg PO QHS HYPERLIPIDEMIA 06/19/24 07/26/24 History dicyclomine 10 mg capsule 10 mg PO TIDAC COLITIS #60 caps 07/23/24 07/27/24 Rx mesalamine 500 mg capsule,extended 500 mg PO BID pain/inflammation 30 07/23/24 07/27/24 Rx release (Pentasa) days #60 caps pantoprazole 40 mg tablet,delayed 40 mg PO DAILY GERD #30 tabs 07/23/24 07/27/24 Rx release acetaminophen 325 mg tablet 650 mg PO Q6H PRN fever or pain 10/08/24 Unknown History (Aminofen) collagenase clostridium histo. 250 1 applic topical DAILY WOUND CARE 10/08/24 Unknown History unit/gram topical ointment (Santyl) dextromethorphan-guaifenesin 10 10 ml PO Q8H PRN cough 10/08/24 Unknown History mg-100 mg/5 mL oral syrup (Antitussive DM) hydrocortisone acetate 25 mg 25 mg NH Q12H MUCOUS MEMBRANE 10/08/24 Unknown History rectal suppository ipratropium 0.5 mg-albuterol 3 mg 3 ml inhalation Q8H PRN SOB 10/08/24 Unknown History (2.5 mg base)/3 mL nebulization soln multivitamin (Daily Multi-Vitamin 1 tab PO DAILY SUPPLEMENT 10/08/24 Unknown History tablet) Allergy/AdvReac Type Severity Reaction Status Date / Time ibuprofen AdvReac Upset Verified 10/08/24 16:25 Stomach Family History Mother COPD (chronic obstructive pulmonary disease) Father Myocardial infarction Surgical History History of bowel resection S/P colonoscopy S/P endoscopy Social History household members: spouse Smoking Status: Former smoker alcohol intake: current alcohol intake frequency: 3 or more drinks per day Alcohol type: beer details: Patient states that he drinks a 12 pack/day of 12 ounce beers substance use type: does not use ROS ROS Narrative Review of Systems: Constitutional: Patient denies fever or chills. Eyes: Patient denies changes in vision or discharge from eyes. ENT: Patient denies runny nose, sore throat or ear pain. Resp: Patient denies SOB or cough. CV: Patient denies chest pain, palpitations, heart racing or LE edema. GI: Patient denies abdominal pain, nausea, vomiting or constipation. : Patient admits to mild difficulty with urination but he denies hematuria. MSK: Patient denies arthralgias or myalgias. Skin: Patient denies rash, wounds, abscess or jaundice. Psych: Patient admits to confusion but he denies symptoms of uncontrolled depression or anxiety. Neuro: Patient denies headache, paresthesias or focal motor neurologic deficits. Allergy: Patient denies lip swelling, tongue swelling or urticaria. Hematology: Patient denies easy bleeding or easy bruisability. Endocrinology: Patient denies polyuria, polydipsia, polyphagia or heat/cold intolerance. 14 point ROS otherwise negative except for positives noted above in HPI. Vital Signs Vital Signs Vital Signs: 10/08/24 16:17 10/08/24 16:24 10/08/24 16:29 Temperature 98.3 F 98.5 F Temperature Source Oral Oral Pulse Rate 103 H 103 H 102 H Respiratory Rate 25 H 25 H 34 H Blood Pressure 99/69 99/69 Blood Pressure Mean 79 79 Pulse Ox 98 97 97 Oxygen Delivery Method Nasal Cannula Nasal Cannula Oxygen Flow Rate (L/min) 2 2 10/08/24 16:30 10/08/24 16:45 10/08/24 16:46 Temperature Temperature Source Pulse Rate 102 H 101 H 101 H Respiratory Rate 35 H 33 H 32 H Blood Pressure 101/72 102/70 Blood Pressure Mean 80 81 Pulse Ox 97 97 98 Oxygen Delivery Method Oxygen Flow Rate (L/min) 10/08/24 17:00 10/08/24 17:15 10/08/24 17:24 Temperature 98.6 F Temperature Source Oral Pulse Rate 102 H 103 H 99 Respiratory Rate 15 26 H 22 H Blood Pressure 99/70 109/71 112/97 H Blood Pressure Mean 80 83 102 Pulse Ox 97 97 98 Oxygen Delivery Method Nasal Cannula Oxygen Flow Rate (L/min) 2 10/08/24 17:30 10/08/24 17:54 10/08/24 18:00 Temperature 97.5 F L Temperature Source Oral Pulse Rate 99 93 94 Respiratory Rate 26 H 24 H 22 H Blood Pressure 112/97 H 99/64 Blood Pressure Mean 104 75 Pulse Ox 98 96 99 Oxygen Delivery Method Nasal Cannula Oxygen Flow Rate (L/min) 2 10/08/24 18:00 10/08/24 18:04 Temperature Temperature Source Pulse Rate 93 94 Respiratory Rate 25 H 18 Blood Pressure 99/64 Blood Pressure Mean 75 Pulse Ox 98 99 Oxygen Delivery Method Oxygen Flow Rate (L/min) Weight Weight: 140 lb 14.4 oz Body Mass Index (BMI) 19.6 Physical Exam Const alert, oriented x3, no apparent distress and average body habitus General Appearance: cooperative HEENT normocephalic, head/scalp atraumatic, hearing grossly normal bilaterally and moist oral mucous membranes Eyes PERRL, EOMs intact bilaterally and conjunctivae normal Neck no lymphadenopathy, supple and no JVD Resp normal respiratory effort, no retractions, no use of accessory muscles and clear to auscultation bilaterally Cardio regular rate and regular rhythm GI normal to inspection, nondistended, normoactive bowel sounds, soft to palpation, non-tender and non-distended Extremity normal to inspection, full ROM and no clubbing, cyanosis or edema Skin Skin Narrative: Patient has no evidence of rash, abscess, wounds or jaundice. Neuro oriented x3, CN's II-XII intact bilaterally, moves all extremities and no focal motor deficits Sensorium / Orientation: awake, alert, oriented to person, oriented to place and oriented to time Speech: speech normal Motor Exam: strength 5/5 throughout Psych affect normal Results Medical Records Data Attestation: I reviewed the patient's medical records Lab / Micro Data Attestation: I reviewed the patient's lab results. 10/08/24 17:15 10/08/24 17:15 Labs: Laboratory Results - last 24 hr 10/08/24 17:15: WBC 8.7, RBC 3.88 L, Hgb 11.4 L, Hct 35.1 L, MCV 90.5, MCH 29.4, MCHC 32.5, RDW Std Deviation 47.8 H, RDW Coeff of Janice 14.5, Plt Count 188, MPV 9.5, Immature Gran % (Auto) 4.800 H, Neut % (Auto) 70.0, Lymph % (Auto) 18.0 L, [place] % (Auto) 5.7, Eos % (Auto) 1.0, Baso % (Auto) 0.5, Absolute Neuts (auto) 6.1, Absolute Lymphs (auto) 1.57, Nucleated RBC % 0, Sodium 134, Potassium 4.3, Chloride 99, Carbon Dioxide 25.8, Anion Gap 9, BUN 16, Creatinine 0.45 L, Estim Creat Clear Calc 74.34, Est GFR (MDRD) Non-Af 111, BUN/Creatinine Ratio 34.9 H, Glucose 155 H, Calcium 9.0 10/08/24 17:27: Urine Color Yellow, Urine Clarity Clear, Urine pH 5.0, Ur Specific [place] 1.020, Urine Protein 30 H, Urine Glucose (UA) 1000 H, Urine Ketones Negative, Urine Occult Blood 10 H, Urine Nitrite Negative, Urine Bilirubin Negative, Urine Urobilinogen Normal, Ur Leukocyte Esterase Negative, Urine RBC 0-5 SEEN, Urine WBC 0-5 SEEN, Ur Squamous Epith Cells 0-5 SEEN, Calcium Oxalate Crystal 1+, Urine Bacteria 0 SEEN, Urine Mucus 0 SEEN Imaging Radiology Impression Brain CT 10/08/24 16:57 IMPRESSION: Probable old right frontal lobe infarct. This would be in the anterior cerebral artery distribution and involve some polar and anteromedial frontal branches. This may alternately be due to old trauma with shearing injury. Concurrent acute and/or subacute ischemic change not excluded if felt clinically appropriate, an MRI of the brain with diffusion imaging could be performed for further evaluation. Reading Location: [facility] Imaging Services [address] [place] [address] [id number] Abdomen/Pelvis W IV Cont ONLY MR#: [id number] Acct: [id number] Name: NISHA MARTINS Rep #: [id number] : 1950 M 74 From: Hortencia Chavez MD PCP: Dr. Reji Levin MD Status: [facility] Study: Abdomen/Pelvis W IV Cont ONLY Date of Exam: 10/08/24 Exam# [id number] Ordering Dr: Neel Crandall DO PROCEDURE: ABDOMEN/PELVIS W IV CONT ONLY 10/08/2024 REASON FOR EXAM: 74-year-old male, recent bowel resection, altered mental status. Concern for intra-abdominal infection given recent surgery. TECHNIQUE: Abdomen and pelvis CT without and with intravenous contrast. Coronal and Sagittal reconstruction series were provided. PATIENT PREPARATION: Per protocol ORAL CONTRAST TYPE: None. CONTRAST: Isovue-300 VOLUME: 100mL One or more dose reduction techniques were used (e.g., Automated exposure control, adjustment of the mA and/or kV according to patient size, use of iterative reconstruction technique. RADIATION DOSE SUMMARY: CTDlvol: 27 mGy DLP: 627 mGycm COMPARISON: CT chest, abdomen and pelvis 08/21/2024. FINDINGS: Lung bases: Interval development of a cavitary lesion with mild, irregular wall thickening within the right middle lobe, previously visualized as a small area of ground-glass opacification. Increased ground-glass opacification and scattered pulmonary nodules throughout the bibasilar lungs. Stable moderate emphysema. No pleural effusion. Liver: The liver is normal in size with scattered hypodensities, likely cysts. The major portal veins are patent. No biliary ductal dilation. Gallbladder: No radiopaque stones within the gallbladder. Spleen: Unremarkable. Pancreas: Unremarkable. Adrenals: Stable bilateral adrenal nodules. Kidneys: Mild asymmetric right renal atrophy. Tiny nonobstructing right renal calculus. No hydronephrosis. Bladder: Punctate foci of gas within the nondependent urinary bladder, likely secondary to recent instrumentation. Diffuse circumferential bladder wall thickening. Reproductive Organs: Mildly enlarged prostate. Bowel: Interval large bowel resection and anastomosis within the right lower quadrant. There is fluid distention and mural thickening and enhancement of the bowel distal to the anastomotic site. Right upper abdominal colostomy in place. The bowel loops are normal in caliber. No ascites or free air. No inflammatory mass in the expected region of the appendix. Lymph nodes: No suspicious lymphadenopathy. Vasculature: IVC filter in place. Stable infrarenal abdominal aortic aneurysm measuring up to 4.4 cm in transverse diameter. 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 Bones/soft tissues: Mild body wall edema. AVN of the bilateral femoral heads. Thoracolumbar spondylosis. CT/Abdomen/Pelvis W IV Cont ONLY IMPRESSION: 1. Development of a right middle lobe cavitary lesion, which is indeterminate and may represent tuberculosis or other non tuberculosis mycobacterial infection, atypical infection due to aspiration pneumonia. Neoplasm such as pulmonary metastases or squamous cell carcinoma of the lung is felt less likely. 2. Increased ground-glass opacification and scattered pulmonary nodules, likely infectious/inflammatory in etiology such as pneumonitis/pneumonia. 3. Interval large bowel resection and anastomosis with fluid distention and mural thickening of the sigmoid colon and rectum distal to the anastomotic site. Findings are indeterminate and may represent postoperative change or recurrent colitis. Dr. Chavez discussed findings with Dr. Crandall at 9:30 pm on 10/08/24. Reading Location: [facility] CC: Dr. Reji Levin MD; Dr. Neel Crandall DO ~ [employer]ness Training Officer: Signed Assessment & Plan Assessment/Plan (1) Altered mental status: QUALIFIERS: Altered mental status type: disorientation Qualified Code(s): R41.0 - Disorientation, unspecified (2) Abnormal head CT: (3) Cavitary pneumonia: (4) Dehydration: (5) Ulcerative colitis: QUALIFIERS: Digestive disease complication type: without complication Ulcerative colitis location: unspecified ulcerative colitis location Qualified Code(s): K51.90 - Ulcerative colitis, unspecified, without complications (6) History of alcohol abuse: (7) History of tobacco abuse: PLAN: Plan 1. 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 Add BASA daily and continue statin. Check MRI of the brain. Check echocardiogram to evaluate LVEF. Check TSH, B12, Folate, HgbA1c, HILARIA and UDS to evaluate for potentially reversible causes of confusion. Finally, we will consult [facility] to see this patient on rounds for further recommendations with help appreciated in advance. 2. CT evidence of development of RML cavitary lesion which may represent tuberculosis or other mycobacterial infection or atypical infection due to aspiration with neoplasm such as pulmonary metastases or squamous cell carcinoma of the lung felt to be less likely in addition to increased ground-glass opacification and scattered pulmonary nodules, likely infectious/inflammatory in etiology such as pneumonitis or Pneumonia complicating #1 - Patient non-toxic in appearance with no active pulmonary complaints at this time - but he is chronically immune-suppressed with prednisone plus he was recently treated with Remicade for his recent ulcerative colitis flare so he will empirically be covered with IV piperacillin-tazobactam and we will await culture and sensitivity data. Check urinary antigens to Streptococcus pneumonia and Legionella. Finally, we will place on airborne isolation in addition to consulting both ID and pulmonology to see this patient on rounds in the AM for further recommendations with the help of both appreciated in advance. 3. Dehydration; with elevated BUN/creatinine ratio of 34.9 present on admission compounding #1 & #2 - Gently volume resuscitate and recheck renal indices in AM to follow trend of hopeful improvement. Hemoccult stools. 4. Recent admission here from August 21, 2024 to August 24, 2024 for Sepsis attributed to Pneumonia and AE of ulcerative colitis in the setting of a partially treated Clostridium difficile infection along with hyponatremia with patient ultimately transferred to [facility] adding to the medical complexity of #1 - #3 - Noted. 5. History of ulcerative colitis; on mesalamine, prednisone and dicyclomine with CT this admission revealing interval large bowel resection and anastomosis with fluid distention and mural thickening of the sigmoid colon and rectum distal to the anastomotic site, with findings indeterminate and may represent postoperative changes or recurrent colitis adding to the burden of disease outlined form #1 - #4 - Continue current regimen. Monitor for possible bleeding with BASA. Check stool studies if diarrhea develops. Patient started on empiric IV piperacillin-tazobactam for #2 which should cover this as well. We will also start probiotic to replace agnes to avoid flare of #6. 6. History of recurrent Clostridium difficile colitis; previously treated with oral vancomycin - Patient has apparently finished treatment. We will watch for any signs of diarrhea. Patient started on acidophilus probiotic to minimize risk of recurrent flare. 7. Hyperlipidemia; on atorvastatin and colestipol - Maintain current regimen and check Lipid Profile this admission. 8. DM-2; of unknown control on insulin glargine 8U daily plus insulin lispro SSI TID AC plus diabetic neuropathy; on gabapentin - ADA diet. FSBS q. AC/HS plus lowest intensity SSI. Check HgbA1c to objectively assess quality of diabetic control. 9. History of diverticulitis - Noted. 10. GERD; on pantoprazole - Resume PPI. 11. Chronic anemia; with history of GI bleed - Stable with hemoglobin of 11.4 g/dL and MCV of 90.5 fL this admission. 12. History of bowel resection - Noted. 13. History of IBS - Noted. 14. RLS - Stable. 15. History of EtOH abuse; with patient previously drinking ~12 beers daily - Check HILARIA, B12 and Folate. 16. Former tobacco abuse - Noted. 17. DVT prophylaxis - SCD's only with history of GI bleed and known chronic Clostridium difficile colitis plus ulcerative colitis constituting relative contraindication to chemoprophylaxis. Total time: Approximately (but not less than) 70 minutes. Charges/Coding Visit Charges OBSV E&M: 78748 Observ/hosp same date L2
--- NOTE | 2024-10-08 20:18 | ECHOD_ITS ---
Reason For Study Reason For Study: TIA/CVA, R/O TB Procedure This was a 2D Doppler, Color Flow transthoracic echocardiogram. The study was technically difficult. Exam performed portable in patient room. Left Ventricle Normal LV size. Left ventricular systolic function is normal. The left ventricular ejection fraction is 65 %. No regional wall motion abnormalities noted. Right Ventricle Normal RV size. Normal systolic function. Atria Normal left atrium. Normal right atrium. Mitral Valve Normal mitral valve. Tricuspid Valve Normal tricuspid valve. Aortic Valve Trisinus/trileaflet aortic valve. Great Vessels Normal aortic root. The pulmonary artery is normal size. Normal inferior vena cava. Pericardium/Pleural No pericardial effusion. MMode/2D Measurements & Calculations LVIDd: 3.0 cm IVSd: 1.2 cm Ao root diam: 3.7 cm LVIDs: 1.7 cm LVPWd: 1.1 cm FS: 42.9 % LA dimension(2D): 2.1 cm Doppler Measurements & Calculations MV E max migue: 42.4 cm/sec Lat Peak E' Migue: 7.7 cm/sec Med Peak E' Migue: 4.9 cm/sec MV A max migue: 63.7 cm/sec E/E' lat: 5.5 E/E' med: 8.6 MV E/A: 0.66 Ao V2 max: 106.8 cm/sec LV V1 max: 62.3 cm/sec Ao max P.6 mmHg LV V1 max P.6 mmHg ECHO/Echo Complete Interpretation Summary Normal LV size. Left ventricular systolic function is normal. The left ventricular ejection fraction is 65 %. Trisinus/trileaflet aortic valve. Ordering Physician: Khris Landrum Referring Physician: Giorgio Levin Performed By: Elena Johnson RDCS
--- NOTE | 2024-10-08 20:18 | CDU_ITS ---
Reason For Study Reason For Study: Carotid Stenosis Rt. Velocities/BP Lt. Velocities/BP Prox CCA 64.8/16.6 cm/sec. Prox CCA 86.4/17.1 cm/sec. Mid CCA 51.6/12.8 cm/sec. Mid CCA 73.2/17.1 cm/sec. Dist CCA 36.6/11.9 cm/sec. Dist CCA 47.9/10.6 cm/sec. Prox ICA 72.3/19.4 cm/sec. Prox ICA 94.1/28.1 cm/sec. Mid ICA 95.7/31.7 cm/sec. Mid ICA 80.2/20.4 cm/sec. Dist ICA 92.4/26.7 cm/sec. Dist ICA 84.2/16.0 cm/sec. Rt. ICA/CCA = 1.9. Lt. ICA/CCA = 1.3. Prox ECA 60.1/11.0 cm/sec. Prox ECA 67.6/9.1 cm/sec. Rt. Vert. 47.8/20.4 cm/sec. Lt. Vert. 16.0/7.7 cm/sec. Right Extracranial There is heterogeneous, irregular atherosclerotic plaque noted in the right common carotid artery. There is heterogeneous, irregular atherosclerotic plaque noted in the right internal carotid artery. There is heterogeneous, irregular atherosclerotic plaque noted in the right external carotid artery. Antegrade flow is noted in the right vertebral artery. Left Extracranial There is heterogeneous, irregular atherosclerotic plaque noted in the left common carotid artery. There is heterogeneous, irregular atherosclerotic plaque noted in the left internal carotid artery. There is heterogeneous, irregular atherosclerotic plaque noted in the left external carotid artery. Antegrade flow is noted in the left vertebral artery. Procedure Carotid Duplex [id number]. This is a Carotid Duplex examination using B-mode, color flow and specral Doppler. The exam was diagnostic. Exam performed portable in patient room. VL/Carotid Duplex Ultrasound Interpretation Summary Mild (<50%) stenosis right extracranial internal carotid. Mild (<50%) stenosis left extracranial internal carotid. Patent and antegrade vertebrals bilaterally. Ordering Physician: Khris Landrum Referring Physician: N/A Performed By: Baron Taylor RVT
[2024-10-08] MEDS: Piperacil/Tazobactam 3.375 GM in 0.9% Normal Saline (50mL MB+) 50 ML IV (23:03)
[2024-10-08] MEDS: 0.9% Normal Saline (1000mL) 1,000 ML 70 ML IV (23:03)
[2024-10-08 23:11] LABS: Alcohol, Blood (Medical)-Serum < 10.1 mg/dL (<=10.0)
[2024-10-08 23:12] LABS: Hemoglobin A1c 6.1 % (<=5.6)
[2024-10-09] VITALS (11 sets, daily range): BP systolic 93–100; BP diastolic 64–71; PULSE 95–109; RESP 16–24; TEMP 36.4–37.2; O2SAT 89–99
[2024-10-09 00:03] LABS: Vitamin B12 750 pg/mL (180-914)
[2024-10-09 00:23] LABS: Pro- Brain NATRIURETIC PEPTIDE 187 pg/mL (<=900)
[2024-10-09] MEDS: Piperacil/Tazobactam 3.375 GM in 0.9% Normal Saline (50mL MB+) 50 ML IV ×3 (05:10→21:20)
[2024-10-09 05:44] LABS: Amphetamine Urine NEGATIVE (<1000 ng/mL); Barbiturate Urine NEGATIVE (< 200 ng/mL); Benzodiazepine Urine NEGATIVE (< 200 ng/mL); Buprenorphine Urine NEGATIVE (< 200 ng/mL); Cocaine Urine NEGATIVE (< 300 ng/mL); Fentanyl, Urine NEGATIVE; Methadone Urine NEGATIVE (< 300 ng/mL); Opiates Urine NEGATIVE (< 300 ng/mL); Oxycodone, Urine NEGATIVE (< 100 ng/mL); PCP Urine NEGATIVE (< 25 ng/mL); THC Urine NEGATIVE (< 50 ng/mL)
[2024-10-09 06:18] LABS: Cholesterol 160 mg/dL (<=200); High Density Lipoprotein 41 mg/dL; Low Density Lipoprotein Calc. 93 mg/dL; Triglycerides 131 mg/dL; Very Low Density Lipoprotein 26 mg/dL (5-40); cholesterol:hdl ratio screen 3.87
--- NOTE | 2024-10-09 09:37 | CT_ITS ---
PROCEDURE: CHEST WITHOUT CONTRAST 10/09/2024 REASON FOR EXAM: RML CAVITARY LESION TECHNIQUE: Chest CT without contrast. Coronal and Sagittal reconstruction series were provided. One or more dose reduction techniques were used (e.g., Automated exposure control, adjustment of the mA and/or kV according to patient size, use of iterative reconstruction technique COMPARISON: 08/21/2024; 2024; 10/09/2024 FINDINGS: Lungs/Pleura:Significant interval progression of multifocal pulmonary opacities with features including consolidation, reticulation, airspace disease and cavitation, with a predilection for the upper lung zones. The largest area of cavitation is in the left upper lobe with thick lopez and internal debris measuring 5.1 x 4.7 cm. A 2nd area of cavitation in the right middle lobe, which was seen on the recent CT of the abdomen and pelvis has slightly increased in size measuring 3.6 x 2.7 cm. Other numerous areas of cavitation are small in size. There is a background of [id number] emphysematous disease. Fibrotic appearing areas of reticulation are greatest in the lung apices. No pleural effusion or pneumothorax. Cardiovascular:The heart is normal in size.Mild coronary artery calcifications are present.There are mild scattered atherosclerotic calcifications of the thoracic aorta. The pulmonary arteries are unremarkable. Pericardium:No effusion. Mediastinum:Unremarkable. Lymph nodes:No lymph node enlargement identified on this noncontrast CT. Bones:No acute osseous abnormality. Soft tissues:Unremarkable. Upper abdomen:Unremarkable. CT/Chest without Contrast IMPRESSION: 1. Constellation of findings including multifocal thick-walled cavitary lesions (some are large measuring up to 5.1 cm and some are microcavitations), multifocal ground-glass, reticular and airspace disease. All these findings have a predilection for the upper lung zones. Differential considerations include post-primary pulmonary t uberculosis as well as other bacterial or atypical cavitary pneumonias such as aspergillosis. Cavitary metastatic disease or sept ic emboli are also differential considerations, however, less likely based on the size and distribution. Acute and subacute di sease features are present. 2. Moderate emphysematous disease. Reading [facility]
--- NOTE | 2024-10-09 10:06 | CON.PCM.CC_ITS ---
Assessment & Plan Assessment/Plan (1) Abnormal abdominal CT scan: PLAN: Plan RECOMMENDATIONS: 1. Antimicrobials per ID recommendations. 2. Recommend noncontrasted chest CT for further characterization. 3. Sputum for AFB is pending. 4. Agree with speech therapy evaluation. IMPRESSIONS: 1. Abnormal CT scan of the abdomen Incidental note was made of a right middle lobe cavitary lesion on CT imaging of the abdomen and pelvis. It is difficult to ascertain the extent and characteristic of this lesion, given the fact that this was an abdominal scan. Accordingly, I would recommend that a dedicated chest CT be completed for further characterization. Ultimately, my suspicion for tuberculosis is very low. If infectious disease is in agreement, airborne precautions can be discontinued. I do suspect that subacute or chronic aspiration may be contributing to these findings. The patient has been initiated on antimicrobial therapy. Depending on the results of his CT scan, consideration can be given to bronchoscopy, if clinically indicated. 2. History of ulcerative colitis/GERD/neuropathy/hyperlipidemia/diabetes mellitus Complicates care, management, recovery and prognosis. Continue supportive measures as noted above. This note was generated with [employer] dictation software. It may contain incorrect words, spelling, and punctuation that were not noted in checking the note before signing. HPI Consult Data Date of Consult: 10/09/24 HPI Narrative Reason for Consultation: Right middle lobe cavitary lesion HPI Narrative: The patient is a 74-year-old male, with a history as outlined below, who presented to the emergency department on October 08 with altered mental status. The patient was last hospitalized in August 2024 with sepsis related to suspected pneumonia and C. difficile colitis, complicated by an ulcerative colitis flare with anemia. The patient currently denies any shortness of breath or cough. On presentation to the emergency department, the patient was documented to be afebrile and hemodynamically stable. Laboratory evaluation revealed a normal white blood cell count. Chemistry profile was unremarkable. TB QuantiFERON from June [address] abdomen/pelvis demonstrated a right middle lobe cavitary lesion, which appeared more like a focal area of scar tissue on my review. Scattered pulmonary nodules were also noted. 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 The patient was subsequently placed on antimicrobials and admitted to the hospital for further management, with MRI brain pending. [facility] Medical History Weakness Colitis Hypertension Irritable bowel Restless legs Diabetes GERD (gastroesophageal reflux disease) GI bleed Ulcerative colitis Alcohol abuse Arthritis Former smoker High cholesterol Diverticulitis Home Medications ?Medication ?Instructions ?Recorded ?Last Taken ?Type albuterol sulfate 90 mcg/actuation 1 inh inhalation Q6 H PRN shortness 02/26/21 Unknown Rx aerosol inhaler of breath or wheezing #8.5 g isis pregabalin 150 mg capsule 150 mg PO BID PAIN 06/19/24 07/27/24 History simvastatin 20 mg tablet 20 mg PO QHS HYPERLIPIDEMIA 06/19/24 07/26/24 History dicyclomine 10 mg capsule 10 mg PO TIDAC COLITIS #60 c aps 07/23/24 07/27/24 Rx mesalamine 500 mg capsule,extended 500 mg PO BID pain/ inflammation 30 07/23/24 07/27/24 Rx release (Pentasa) days #60 caps pantoprazole 40 mg tablet,delayed 40 mg PO DAILY GERD #30 tabs 07/23/24 07/27/24 Rx release acetaminophen 325 mg tablet 650 mg PO Q6H PRN fever or pain 10/08/24 Unknown History (Aminofen) collagenase clostridium histo. 250 1 applic topical [facility] 10/08/24 Unknown History unit/gram topical ointment (Santyl) dextromethorphan-guaifenesin 10 10 ml PO Q8H PRN cough 10/08/24 Unknown History mg-100 mg/5 mL oral syrup (Antitussive DM) hydrocortisone acetate 25 mg 25 mg [place] Q12H MUCOUS MEMB JOHNNY 10/08/24 Unknown History rectal suppository ipratropium 0.5 mg-albuterol 3 mg 3 ml inhalation Q8H PRN SOB 10/08/24 Unknown History (2.5 mg base)/3 mL nebulization soln multivitamin (Daily Multi-Vitamin 1 tab PO DAILY SUPPL EMENT 10/08/24 Unknown History tablet) Allergy/AdvReac Type Severity Reaction Status Date / Time ibuprofen AdvReac Upset Verified 10/08/24 16:25 Stomach Family History Mother COPD (chronic obstructive pulmonary disease) Father Myocardial infarction Surgical History History of bowel resection S/P colonoscopy S/P endoscopy Social History household members: spouse Smoking Status: Former smoker alcohol intake: current alcohol intake frequency: 3 or more drinks per day Alcohol type: beer details: Patient states that he drinks a 12 pack/day of 12 ounce beers substance use type: does not use ROS ROS Narrative 10 systems were reviewed with pertinent positives as noted in the HPI above. Physical Exam Const alert and no apparent distress General Appearance: cooperative HEENT normocephalic and head/scalp atraumatic Eyes EOMs intact bilaterally, conjunctivae normal and no scleral icterus Neck supple General: trachea midline Chest inspection of chest normal Resp normal respiratory effort Auscultation: diminished lung sounds Cardio regular rate and regular rhythm GI normal to inspection, nondistended, normoactive bowel sounds Extremity no clubbing, cyanosis or edema Skin no rashes or lesions noted Neuro CN's II-XII intact bilaterally, moves all extremities and no focal motor deficits Psych Mood & Affect: flat affect Lab / Micro Data 10/08/24 17:15 10/08/24 17:15 Labs: Laboratory Results - last 24 hr 10/08/24 17:15: WBC 8.7, RBC 3.88 L, Hgb 11.4 L, Hct 35.1 L, MCV 90.5, MCH 29.4, MCHC 32.5, RDW Std Deviation 47.8 H, RDW Coeff of Janice 14.5, Plt Count 188, MPV 9.5, Immature Gran % (Auto) 4.800 H, Neut % (Auto) 70.0, Lymph % (Auto) 18.0 L, [place] % (Auto) 5.7, Eos % (Auto) 1.0, Baso % (Auto) 0.5, Absolute Neuts (auto) 6.1, Absolute Lymphs (auto) 1.57, Nucleated RBC % 0, Sodium 134, Potassium 4.3, Chloride 99, Carbon Dioxide 25.8, Anion Gap 9, BUN 16, Creatinine 0.45 L, Estim Creat Clear Calc 74.34, Est GFR (MDRD) Non-Af 111, BUN/Creatinine Ratio 34.9 H, Glucose 155 H, Hemoglobin A1c 6.1, Calcium 9.0, NT pro BNP II 187, Vitamin B12 750, TSH 1.900, Ethyl Alcohol < 10.1 10/08/24 17:27: Urine Color Yellow, Urine Clarity Clear, Urine pH 5.0, Ur Specific [place] 1.020, Urine Protein 30 H, Urine Glucose (UA) 1000 H, Urine Ketones Negative, Urine Occult Blood 10 H, Urine Nitrite Negative, Urine Bilirubin Negative, Urine Urobilinogen Normal, Ur Leukocyte Esterase Negative, Urine RBC 0-5 SEEN, Urine WBC 0-5 SEEN, Ur Squamous Epith Cells 0-5 SEEN, Calcium Oxalate Crystal 1+, Urine Bacteria 0 SEEN, Urine Mucus 0 SEEN 10/09/24 05:17: Urine Opiates Screen NEGATIVE, U Buprenorphine Qual NEGATIVE, Ur Oxycodone Screen NEGATIVE, Urine Methadone Screen NEGATIVE, Urine Fentanyl Screen NEGATIVE, Ur Barbiturates Screen NEGATIVE, Ur Phencyclidine Scrn NEGATIVE, Ur Amphetamines Screen NEGATIVE, U Benzodiazepines Scrn NEGATIVE, Urine Cocaine Screen NEGATIVE, U Cannabinoids Screen NEGATIVE 10/09/24 05:41: Triglycerides 131, Cholesterol 160, LDL Cholesterol, Calc 93, VLDL Cholesterol 26, HDL Cholesterol 41, Cholesterol/HDL Ratio 3.87, Serum Folate 18.30 Micro: Microbiology 10/09/24 05:17 Urine, Clean Catch Legionella Antigen - Final 10/09/24 05:17 Urine, Clean Catch Streptococcus pneumoniae Antigen (M - Final 10/08/24 22:45 Stool Stool Occult Blood (ARNALDO) - Final Imaging Radiology Impression Abdomen/Pelvis CT 10/08/24 16:57 IMPRESSION: 1. Development of a right middle lobe cavitary lesion, which is indeterminate and may represent tuberculosis or other non tuberculosis mycobacterial infection, atypical infection due to aspiration pneumonia. Neoplasm such as pulmonary metastases or squamous cell carcinoma of the lung is felt less likely. 2. Increased ground-glass opacification and scattered pulmonary nodules, likely infectious/inflammatory in etiology such as pneumonitis/pneumonia. 3. Interval large bowel resection and anastomosis with fluid distention and mural thickening of the sigmoid colon and rectum distal to the anastomotic site. Findings are indeterminate and may represent postoperative change or recurrent colitis. Dr. Chavez discussed findings with Dr. Crandall at 9:30 pm on 10/08/24. 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 This would be in the anterior cerebral artery distribution and involve some polar and anteromedial frontal branches. This may alternately be due to old trauma with shearing injury. Concurrent acute and/or subacute ischemic change not excluded if felt clinically appropriate, an MRI of the brain with diffusion imaging could be performed for further evaluation. Reading Location: [facility] Chest X-Ray 10/08/24 17:50 IMPRESSION: 1. Findings compatible with lobar pneumonia. The known right middle lobe cavitary lesion is not well-visualized. 2. Cardiomegaly and pulmonary venous congestion. Reading Location: [id number] Charges/Coding Visit Charges Inpatient E&M: 02241 Init Hosp L3
--- NOTE | 2024-10-09 10:15 | PCM.CONS.GEN ---
Assessment & Plan Assessment/Plan (1) Cavitary pneumonia: PLAN: TB quantiferon neg 06/2024, so overall low suspicion for active TB. Reports some h/o aspiration. Recommend swallow eval. Will check covid, sputum cx, AFB sputum, and MRSA pcr. Cont zosyn. Pulm consulted. Will follow, thank you (2) Ulcerative colitis: QUALIFIERS: Ulcerative colitis location: unspecified ulcerative colitis location Digestive disease complication type: without complication Qualified Code(s): K51.90 - Ulcerative colitis, unspecified, without complications HPI Consult Data Date of Consult: 10/09/24 HPI Narrative Reason for Consultation: cavitary pneumonia HPI Narrative: NISHA MARTNIS, is a 74 M with ulcerative colitis on mesalamine, prednisone, and dicyclomine, DM neuropathy, etoh abuse, and cdiff. Presented 10/08 with acute onset confusion at [facility], c/o some dyspnea, not feeling well. No cough, no hemoptysis, no fever, no night sweats. No known TB contacts. CT showed new RML cavitary lesion, not seen 08/2024. Admitted on zosyn. Full ROS performed and neg except as noted above. [facility] Medical History Weakness Colitis Hypertension Irritable bowel Restless legs Diabetes GERD (gastroesophageal reflux disease) GI bleed Ulcerative colitis Alcohol abuse Arthritis Former smoker High cholesterol Diverticulitis Home Medications ?Medication ?Instructions ?Recorded ?Last Taken ?Type albuterol sulfate 90 mcg/actuation 1 inh inhalation Q6H PRN shortness 02/26/21 Unknown Rx aerosol inhaler of breath or wheezing #8.5 grams pregabalin 150 mg capsule 150 mg PO BID PAIN 06/19/24 07/27/24 History simvastatin 20 mg tablet 20 mg PO QHS HYPERLIPIDEMIA 06/19/24 07/26/24 History dicyclomine 10 mg capsule 10 mg PO TIDAC COLITIS #60 caps 07/23/24 07/27/24 Rx mesalamine 500 mg capsule,extended 500 mg PO BID pain/inflammation 30 07/23/24 07/27/24 Rx release (Pentasa) days #60 caps pantoprazole 40 mg tablet,delayed 40 mg PO DAILY GERD #30 tabs 07/23/24 07/27/24 Rx release acetaminophen 325 mg tablet 650 mg PO Q6H PRN fever or pain 10/08/24 Unknown History (Aminofen) collagenase clostridium histo. 250 1 applic topical DAILY WOUND CARE 10/08/24 Unknown History unit/gram topical ointment (Santyl) dextromethorphan-guaifenesin 10 10 ml PO Q8H PRN cough 10/08/24 Unknown History mg-100 mg/5 mL oral syrup (Antitussive DM) hydrocortisone acetate 25 mg 25 mg [place] Q12H MUCOUS MEMBRANE 10/08/24 Unknown History rectal suppository ipratropium 0.5 mg-albuterol 3 mg 3 ml inhalation Q8H PRN SOB 10/08/24 Unknown History (2.5 mg base)/3 mL nebulization soln multivitamin (Daily Multi-Vitamin 1 tab PO DAILY SUPPLEMENT 10/08/24 Unknown History tablet) Allergy/AdvReac Type Severity Reaction Status Date / Time ibuprofen AdvReac Upset Verified 10/08/24 16:25 Stomach Family History Mother COPD (chronic obstructive pulmonary disease) Father Myocardial infarction Surgical History History of bowel resection S/P colonoscopy S/P endoscopy Social History household members: spouse Smoking Status: Former smoker alcohol intake: current alcohol intake frequency: 3 or more drinks per day Alcohol type: beer details: Patient states that he drinks a 12 pack/day of 12 ounce beers substance use type: does not use Physical Exam Const alert and no apparent distress General Appearance: cooperative HEENT normocephalic and head/scalp atraumatic Eyes PERRL and EOMs intact bilaterally Neck supple and No nodes Resp normal air movement and clear to auscultation bilaterally Cardio regular rate and regular rhythm GI soft to palpation, non-tender and non-distended Extremity General Extremity: Negative for edema Skin no rashes or lesions noted Neuro CN's II-XII intact bilaterally Lab / Micro Data Attestation: I reviewed the patient's lab results. 10/08/24 17:15 10/08/24 17:15 Labs: Laboratory Results - last 24 hr 10/08/24 17:15: WBC 8.7, RBC 3.88 L, Hgb 11.4 L, Hct 35.1 L, MCV 90.5, MCH 29.4, MCHC 32.5, RDW Std Deviation 47.8 H, RDW Coeff of Janice 14.5, Plt Count 188, MPV 9.5, Immature Gran % (Auto) 4.800 H, Neut % (Auto) 70.0, Lymph % (Auto) 18.0 L, [place] % (Auto) 5.7, Eos % (Auto) 1.0, Baso % (Auto) 0.5, Absolute Neuts (auto) 6.1, Absolute Lymphs (auto) 1.57, Nucleated RBC % 0, Sodium 134, Potassium 4.3, Chloride 99, Carbon Dioxide 25.8, Anion Gap 9, BUN 16, Creatinine 0.45 L, Estim Creat Clear Calc 74.34, Est GFR (MDRD) Non-Af 111, BUN/Creatinine Ratio 34.9 H, Glucose 155 H, Hemoglobin A1c 6.1, Calcium 9.0, NT pro BNP II 187, Vitamin B12 750, TSH 1.900, Ethyl Alcohol < 10.1 10/08/24 17:27: Urine Color Yellow, Urine Clarity Clear, Urine pH 5.0, Ur Specific [place] 1.020, Urine Protein 30 H, Urine Glucose (UA) 1000 H, Urine Ketones Negative, Urine Occult Blood 10 H, Urine Nitrite Negative, Urine Bilirubin Negative, Urine Urobilinogen Normal, Ur Leukocyte Esterase Negative, Urine RBC 0-5 SEEN, Urine WBC 0-5 SEEN, Ur Squamous Epith Cells 0-5 SEEN, Calcium Oxalate Crystal 1+, Urine Bacteria 0 SEEN, Urine Mucus 0 SEEN 10/09/24 05:17: Urine Opiates Screen NEGATIVE, U Buprenorphine Qual NEGATIVE, Ur Oxycodone Screen NEGATIVE, Urine Methadone Screen NEGATIVE, Urine Fentanyl Screen NEGATIVE, Ur Barbiturates Screen NEGATIVE, Ur Phencyclidine Scrn NEGATIVE, Ur Amphetamines Screen NEGATIVE, U Benzodiazepines Scrn NEGATIVE, Urine Cocaine Screen NEGATIVE, U Cannabinoids Screen NEGATIVE 10/09/24 05:41: Triglycerides 131, Cholesterol 160, LDL Cholesterol, Calc 93, VLDL Cholesterol 26, HDL Cholesterol 41, Cholesterol/HDL Ratio 3.87, Serum Folate 18.30 Micro: Microbiology 10/09/24 05:17 Urine, Clean Catch Legionella Antigen - Final 10/09/24 05:17 Urine, Clean Catch Streptococcus pneumoniae Antigen (M - Final 10/08/24 22:45 Stool Stool Occult Blood (ARNALDO) - Final Imaging Radiology Impression Abdomen/Pelvis CT 10/08/24 16:57 IMPRESSION: 1. Development of a right middle lobe cavitary lesion, which is indeterminate and may represent tuberculosis or other non tuberculosis mycobacterial infection, atypical infection due to aspiration pneumonia. Neoplasm such as pulmonary metastases or squamous cell carcinoma of the lung is felt less likely. 2. Increased ground-glass opacification and scattered pulmonary nodules, likely infectious/inflammatory in etiology such as pneumonitis/pneumonia. 3. Interval large bowel resection and anastomosis with fluid distention and mural thickening of the sigmoid colon and rectum distal to the anastomotic site. Findings are indeterminate and may represent postoperative change or recurrent colitis. Dr. Chavez discussed findings with Dr. Crandall at 9:30 pm on 10/08/24. 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 This would be in the anterior cerebral artery distribution and involve some polar and anteromedial frontal branches. This may alternately be due to old trauma with shearing injury. Concurrent acute and/or subacute ischemic change not excluded if felt clinically appropriate, an MRI of the brain with diffusion imaging could be performed for further evaluation. Reading Location: [facility] Chest X-Ray 10/08/24 17:50 IMPRESSION: 1. Findings compatible with lobar pneumonia. The known right middle lobe cavitary lesion is not well-visualized. 2. Cardiomegaly and pulmonary venous congestion. Reading Location: [facility]
--- NOTE | 2024-10-09 12:07 | CON.PCM.NE_ITS ---
Assessment and Plan: Neuro Assessment/Plan 74 yo man with complicated GI history s/p multiple hospital admission over the past few months s/p colon resection, who is presenting with concern for confusion. Unsure of patients baseline, but he seems to be waxing and waning, and he was found to have Pneumonia. Presentation likely related to toxic metabolic encephalopathy and delirium in the setting of underlying infection and multiple recent hospitalization. 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 Also concern for nutritional deficiencies, and will obtain vitamin labs and start high dose Thiamine supplementation. Recs: [ ] Routine EEG [ ] Send vitamin B12, Thiamine and Folate levels [ ] After sending Thiamine lab, please start high dose Thiamine supplementation with 500 mg IV Thiamine TID x 5 days followed by 100 mg PO daily [ ] Ammonia, TSH [? ]Delirium precautions Treatment of underlying infection Will follow on EEG I personally attended this patient and spent a total time of 60 minutes evaluating this patient including clinical assessment, review of chart, medical history imaging, and determining appropriate treatment and workup. HPI Consult Data Date of Consult: 10/09/24 HPI Narrative HPI Narrative: Consult for encephalopathy 74 M with history of recurrent Clostridium difficile colitis; ulcerative colitis, diverticulitis, bowel resection, multiple hospitalizations over the past few months with stays at residential, malnutrition and severe debilitation, who is presenting to the hospital from facility with concern for confusion. Patient is a poor historian. Staff at facility noted patient was having some confusion. No clear details available, but mentions of him being AOx3 instead of AOx4? On exam today, he is alert, following commands, says he is at the hospital for because his is having? a baby. WBC 8.7 Na 134 Cr 0.45 CTH with remote R frontal stroke, but no acute findings. MRI brain with no acute findings, remote right frontal stroke seen on CTH CT chest with concern for cavitary pneumonia PHYSICAL EXAM: Exam performed with help of the nurse/LINNEA present with patient on Tele site NEURO: AAO to self, year and knows he is at the hospital. Says he is at the hospital because his is having a baby. Dysarthric but baseline with no teeth, follows commands, no aphasia EOMI, no gaze preference/nystagmus. Face symmetric, Intact facial sensation. Tongue midline. Sensation: intact to light touch all over Motor: UE anti gravity, LE able to move side ways, not anti gravity he has been debilitated and using a wheelchair. [facility] Medical History Weakness Colitis Hypertension Irritable bowel Restless legs Diabetes GERD (gastroesophageal reflux disease) GI bleed Ulcerative colitis Alcohol abuse Arthritis Former smoker High cholesterol Diverticulitis Home Medications ?Medication ?Instructions ?Recorded ?Last Taken ?Type albuterol sulfate 90 mcg/actuation 1 inh inhalation Q6 H PRN shortness 02/26/21 Unknown Rx aerosol inhaler of breath or wheezing #8.5 g isis pregabalin 150 mg capsule 150 mg PO BID PAIN 06/19/24 07/27/24 History simvastatin 20 mg tablet 20 mg PO QHS HYPERLIPIDEMIA 06/19/24 07/26/24 History dicyclomine 10 mg capsule 10 mg PO TIDAC COLITIS #60 c aps 07/23/24 07/27/24 Rx mesalamine 500 mg capsule,extended 500 mg PO BID pain/ inflammation 30 07/23/24 07/27/24 Rx release (Pentasa) days #60 caps pantoprazole 40 mg tablet,delayed 40 mg PO DAILY GERD #30 tabs 07/23/24 07/27/24 Rx release acetaminophen 325 mg tablet 650 mg PO Q6H PRN fever or pain 10/08/24 Unknown History (Aminofen) collagenase clostridium histo. 250 1 applic topical [facility] 10/08/24 Unknown History unit/gram topical ointment (Santyl) dextromethorphan-guaifenesin 10 10 ml PO Q8H PRN cough 10/08/24 Unknown History mg-100 mg/5 mL oral syrup (Antitussive DM) hydrocortisone acetate 25 mg 25 mg OK Q12H MUCOUS MEMB JOHNNY 10/08/24 Unknown History rectal suppository ipratropium 0.5 mg-albuterol 3 mg 3 ml inhalation Q8H PRN SOB 10/08/24 Unknown History (2.5 mg base)/3 mL nebulization soln multivitamin (Daily Multi-Vitamin 1 tab PO DAILY SUPPL EMENT 10/08/24 Unknown History tablet) Allergy/AdvReac Type Severity Reaction Status Date / Time ibuprofen AdvReac Upset Verified 10/08/24 16:25 Stomach Family History Mother COPD (chronic obstructive pulmonary disease) Father Myocardial infarction Surgical History History of bowel resection S/P colonoscopy S/P endoscopy Social History household members: spouse Smoking Status: Former smoker alcohol intake: current alcohol intake frequency: 3 or more drinks per day Alcohol type: beer details: Patient states that he drinks a 12 pack/day of 12 ounce beers substance use type: does not use Vital Signs Vital Signs Vital Signs: 10/08/24 16:17 10/08/24 16:24 10/08/24 16:29 Temperature 98.3 F 98.5 F Temperature Source Oral Oral Pulse Rate 103 H 103 H 102 H Respiratory Rate 25 H 25 H 34 H Respiratory Effort Respiratory Depth Respiratory Pattern Blood Pressure 99/69 99/69 Blood Pressure Mean 79 79 Blood Pressure Source Blood Pressure Position Blood Pressure Location Pulse Ox 98 97 97 Oxygen Delivery Method Nasal Cannula Nasal Cannula Oxygen Flow Rate (L/min) 2 2 Fraction of Inspired Oxygen (FIO2) 10/08/24 16:30 10/08/24 16:45 10/08/24 16:46 Temperature Temperature Source Pulse Rate 102 H 101 H 101 H Respiratory Rate 35 H 33 H 32 H Respiratory Effort Respiratory Depth Respiratory Pattern Blood Pressure 101/72 102/70 Blood Pressure Mean 80 81 Blood Pressure Source Blood Pressure Position Blood Pressure Location Pulse Ox 97 97 98 Oxygen Delivery Method Oxygen Flow Rate (L/min) Fraction of Inspired Oxygen (FIO2) 10/08/24 17:00 10/08/24 17:15 10/08/24 17:24 Temperature 98.6 F Temperature Source Oral Pulse Rate 102 H 103 H 99 Respiratory Rate 15 26 H 22 H Respiratory Effort Respiratory Depth Respiratory Pattern Blood Pressure 99/70 109/71 112/97 H Blood Pressure Mean 80 83 102 Blood Pressure Source Blood Pressure Position Blood Pressure Location Pulse Ox 97 97 98 Oxygen Delivery Method Nasal Cannula Oxygen Flow Rate (L/min) 2 Fraction of Inspired Oxygen (FIO2) 10/08/24 17:30 10/08/24 17:54 10/08/24 18:00 Temperature 97.5 F L Temperature Source Oral Pulse Rate 99 93 94 Respiratory Rate 26 H 24 H 22 H Respiratory Effort Respiratory Depth Respiratory Pattern Blood Pressure 112/97 H 99/64 Blood Pressure Mean 104 75 Blood Pressure Source Blood Pressure Position Blood Pressure Location Pulse Ox 98 96 99 Oxygen Delivery Method Nasal Cannula Oxygen Flow Rate (L/min) 2 Fraction of Inspired Oxygen (FIO2) 10/08/24 18:00 10/08/24 18:04 10/08/24 18:15 Temperature Temperature Source Pulse Rate 93 94 94 Respiratory Rate 25 H 18 32 H Respiratory Effort Respiratory Depth Respiratory Pattern Blood Pressure 99/64 110/66 Blood Pressure Mean 75 80 Blood Pressure Source Blood Pressure Position Blood Pressure Location Pulse Ox 98 99 98 Oxygen Delivery Method Oxygen Flow Rate (L/min) Fraction of Inspired Oxygen (FIO2) 10/08/24 18:30 10/08/24 18:31 10/08/24 18:45 Temperature Temperature Source Pulse Rate 95 95 95 Respiratory Rate 23 H 30 H 24 H Respiratory Effort Respiratory Depth Respiratory Pattern Blood Pressure 96/62 107/81 H Blood Pressure Mean 74 91 Blood Pressure Source Blood Pressure Position Blood Pressure Location Pulse Ox 99 99 98 Oxygen Delivery Method Oxygen Flow Rate (L/min) Fraction of Inspired Oxygen (FIO2) 10/08/24 19:00 10/08/24 19:00 10/08/24 19:15 Temperature 97.4 F L Temperature Source Temporal Pulse Rate 99 96 98 Respiratory Rate 25 H 24 H 21 H Respiratory Effort Respiratory Depth Respiratory Pattern Blood Pressure 93/67 116/65 97/72 Blood Pressure Mean 75 82 81 Blood Pressure Source Blood Pressure Position Blood Pressure Location Pulse Ox 100 98 Oxygen Delivery Method Nasal Cannula Oxygen Flow Rate (L/min) 2 Fraction of Inspired Oxygen (FIO2) 10/08/24 19:30 10/08/24 19:45 10/08/24 19:52 Temperature 97.4 F L Temperature Source Pulse Rate 99 99 99 Respiratory Rate 27 H 26 H 19 H Respiratory Effort Respiratory Depth Respiratory Pattern Blood Pressure 104/74 93/67 93/67 Blood Pressure Mean 84 76 75 Blood Pressure Source Blood Pressure Position Blood Pressure Location Pulse Ox 98 94 98 Oxygen Delivery Method Oxygen Flow Rate (L/min) Fraction of Inspired Oxygen (FIO2) 10/08/24 20:00 10/08/24 20:00 10/08/24 20:15 Temperature 97.8 F Temperature Source Oral Pulse Rate 98 99 Respiratory Rate 22 H 33 H Respiratory Effort Respiratory Depth Respiratory Pattern Blood Pressure 101/67 105/74 100/48 L Blood Pressure Mean 78 84 65 Blood Pressure Source Blood Pressure Position Blood Pressure Location Pulse Ox 98 Oxygen Delivery Method Nasal Cannula Oxygen Flow Rate (L/min) Fraction of Inspired Oxygen (FIO2) 2 10/08/24 20:30 10/08/24 20:45 10/08/24 21:02 Temperature Temperature Source Pulse Rate 97 98 98 Respiratory Rate 15 29 H 28 H Respiratory Effort Respiratory Depth Respiratory Pattern Blood Pressure 96/67 110/71 Blood Pressure Mean 78 84 Blood Pressure Source Blood Pressure Position Blood Pressure Location Pulse Ox Oxygen Delivery Method Oxygen Flow Rate (L/min) Fraction of Inspired Oxygen (FIO2) 10/08/24 22:15 10/08/24 22:30 10/08/24 23:44 Temperature 98.2 F Temperature Source Oral Pulse Rate 102 H Respiratory Rate 14 Respiratory Effort Non-Labored Respiratory Depth Respiratory Pattern Normal Blood Pressure 118/85 H Blood Pressure Mean 96 Blood Pressure Source Monitor Blood Pressure Position Semi-Fowlers Blood Pressure Location Left Arm Pulse Ox 94 94 Oxygen Delivery Method Nasal Cannula Nasal Cannula Oxygen Flow Rate (L/min) 2 2 Fraction of Inspired Oxygen (FIO2) 10/09/24 02:00 10/09/24 05:09 10/09/24 07:20 Temperature 98.2 F 98 F Temperature Source Oral Oral Pulse Rate 100 104 H Respiratory Rate 16 16 Respiratory Effort Respiratory Depth Respiratory Pattern Blood Pressure 100/69 93/69 Blood Pressure Mean 79 77 Blood Pressure Source Monitor Monitor Blood Pressure Position Semi-Fowlers Semi-Fowlers Blood Pressure Location Left Arm Left Arm Pulse Ox 99 99 95 Oxygen Delivery Method Nasal Cannula Nasal Cannula Nasal Cannula Oxygen Flow Rate (L/min) 2 2 2 Fraction of Inspired Oxygen (FIO2) 10/09/24 09:00 10/09/24 09:00 10/09/24 09:14 Temperature Temperature Source Pulse Rate Respiratory Rate Respiratory Effort Normal Non-Labored Respiratory Depth Normal Respiratory Pattern Normal Blood Pressure Blood Pressure Mean Blood Pressure Source Blood Pressure Position Blood Pressure Location Pulse Ox Oxygen Delivery Method Room Air Oxygen Flow Rate (L/min) 2 2 Fraction of Inspired Oxygen (FIO2) 10/09/24 09:58 Temperature 98.9 F Temperature Source Oral Pulse Rate 109 H Respiratory Rate 18 Respiratory Effort Respiratory Depth Respiratory Pattern Blood Pressure 97/70 Blood Pressure Mean 79 Blood Pressure Source Monitor Blood Pressure Position Semi-Fowlers Blood Pressure Location Right Arm Pulse Ox 94 Oxygen Delivery Method Room Air Oxygen Flow Rate (L/min) Fraction of Inspired Oxygen (FIO2) Weight Weight: 63.911 kg Body Mass Index (BMI) 19.6 EEG Results Procedure Details EEG Procedure Details: NISHA MARTINS is a 74 year old M with a past medical history of , who presents for evaluation of Electroencephalogram on DATE at TIME NIHSS NIHSS Nursing Documentation NIHSS Nursing Documentation: NIHSS: Ischemic Stroke/TIA Start: 10/08/24 22:15 Text: For PCU Patients: NIH and Neuro Check every 4 Status: Active hours, PRN and with change in RN caregiver. Freq: [id number] Protocol: Activity Type Activity Date Activity User E-sign Co-sign Detail Recorded Client Recorded Date Recorded By Document 10/09/24 09:00 [facility] [id number] 10/09/24 10:29 LR 10/09/24 09:00 NIH Stroke Scale [NIHSS] A score of 0 is normal or asymptomatic . Total possible score is 42. Inpatient: RN or Physician to activate a stroke alert for onset of new stroke symptoms or with NIHSS increase >/= 3 points. Following change in neurological status, NIHSS will be performed per physician order or more frequently PRN. -1a. Level of Consciousness Alert; keenly responsive -1b. LOC Questions Answers one question correctly. -1c. LOC Commands Performs both tasks correctly . -2. Best Gaze Normal -3. Visual No visual loss -4. Facial Palsy Normal symmetrical movements -5a. Left Arm No drift; arm holds 90 (or 45 ) degrees for full 10 seconds -5b. Right Arm No drift; arm holds 90 (or 45 ) degrees for full 10 seconds -6a. Left Leg No effort against gravity ; leg falls to bed immediately -6b. Right Leg No effort against gravity ; leg falls to bed immediately -7. Limb Ataxia Absent -8. Sensory Normal; no sensory loss -9. Best Language No aphasia; normal -10. Dysarthria Normal -11. Extinction and Inattention No abnormality -Total 7 Query Text:A score of 0 is normal or asymptomatic. Total possible score is 42 . ED: Notify Physician for NIHSS increase by > / = 3 points. Inpatient: RN or Physician to activate a stroke alert for NIHSS increase of > / = 3 points. Lab / Micro Data 10/08/24 17:15 10/08/24 17:15 Labs: Laboratory Results - last 24 hr 10/08/24 17:15: WBC 8.7, RBC 3.88 L, Hgb 11.4 L, Hct 35.1 L, MCV 90.5, MCH 29.4, MCHC 32.5, RDW Std Deviation 47.8 H, RDW Coeff of Janice 14.5, Plt Count 188, MPV 9.5, Immature Gran % (Auto) 4.800 H, Neut % (Auto) 70.0, Lymph % (Auto) 18.0 L, [place] % (Auto) 5.7, Eos % (Auto) 1.0, Baso % (Auto) 0.5, Absolute Neuts (auto) 6.1, Absolute Lymphs (auto) 1.57, Nucleated RBC % 0, Sodium 134, Potassium 4.3, Chloride 99, Carbon Dioxide 25.8, Anion Gap 9, BUN 16, Creatinine 0.45 L, Estim Creat Clear Calc 74.34, Est GFR (MDRD) Non-Af 111, BUN/Creatinine Ratio 34.9 H, Glucose 155 H, Hemoglobin A1c 6.1, Calcium 9.0, NT pro BNP II 187, Vitamin B12 750, TSH 1.900, Ethyl Alcohol < 10.1 10/08/24 17:27: Urine Color Yellow, Urine Clarity Clear, Urine pH 5.0, Ur Specific [place] 1.020, Urine Protein 30 H, Urine Glucose (UA) 1000 H, Urine Ketones Negative, Urine Occult Blood 10 H, Urine Nitrite Negative, Urine Bilirubin Negative, Urine Urobilinogen Normal, Ur Leukocyte Esterase Negative, Urine RBC 0-5 SEEN, Urine WBC 0-5 SEEN, Ur Squamous Epith Cells 0-5 SEEN, Calcium Oxalate Crystal 1+, Urine Bacteria 0 SEEN, Urine Mucus 0 SEEN 10/09/24 05:17: Urine Opiates Screen NEGATIVE, U Buprenorphine Qual NEGATIVE, Ur Oxycodone Screen NEGATIVE, Urine Methadone Screen NEGATIVE, Urine Fentanyl Screen NEGATIVE, Ur Barbiturates Screen NEGATIVE, Ur Phencyclidine Scrn NEGATIVE, Ur Amphetamines Screen NEGATIVE, U Benzodiazepines Scrn NEGATIVE, Urine Cocaine Screen NEGATIVE, U Cannabinoids Screen NEGATIVE 10/09/24 05:41: Triglycerides 131, Cholesterol 160, LDL Cholesterol, Calc 93, VLDL Cholesterol 26, HDL Cholesterol 41, Cholesterol/HDL Ratio 3.87, Serum Folate 18.30 Micro: Microbiology 10/09/24 05:17 Urine, Clean Catch Legionella Antigen - Final 10/09/24 05:17 Urine, Clean Catch Streptococcus pneumoniae Antigen (M - Final 10/08/24 22:45 Stool Stool Occult Blood (ARNALDO) - Final Imaging Radiology Impression Abdomen/Pelvis CT 10/08/24 16:57 IMPRESSION: 1. Development of a right middle lobe cavitary lesion, which is indeterminate and may represent tuberculosis or other non tuberculosis mycobacterial infection, atypical infection due to aspiration pneumonia. Neoplasm such as pulmonary metastases or squamous cell carcinoma of the lung is felt less likely. 2. Increased ground-glass opacification and scattered pulmonary nodules, likely infectious/inflammatory in etiology such as pneumonitis/pneumonia. 3. Interval large bowel resection and anastomosis with fluid distention and mural thickening of the sigmoid colon and rectum distal to the anastomotic site. Findings are indeterminate and may represent postoperative change or recurrent colitis. Dr. Chavez discussed findings with Dr. Crandall at 9:30 pm on 10/08/24. Reading Location: [facility] Brain CT 10/08/24 16:57 IMPRESSION: Probable old right frontal lobe infarct. This would be in the anterior cerebral artery distribution and involve some polar and anteromedial frontal branches. This may alternately be due to old trauma with shearing injury. Concurrent acute and/or subacute ischemic change not excluded if felt clinically appropriate, an MRI of the brain with diffusion imaging could be performed for further evaluation. Reading Location: [facility] Chest X-Ray 10/08/24 17:50 IMPRESSION: 1. Findings compatible with lobar pneumonia. The known right middle lobe cavitary lesion is not well-visualized. 2. Cardiomegaly and pulmonary venous congestion. Reading Location: [facility] Active Medications Active Medications Active Medications: Current Medications Generic Name Dose Route Start Last Admin Trade Name Freq PRN Reason Stop Dose Admin Acetaminophen 650 mg 10/08/24 22:30 Acetaminophen 325 Mg Tablet PO Q6H PRN fever or pain Albuterol Sulfate 2.5 mg 10/08/24 22:30 Albuterol 2.5 Mg/3 Ml Vial.Neb. INHALATION Q6H PRN shortness of breath or wheezing Albuterol/Ipratropium 3 ml 10/08/24 22:30 Ipratropium/Albuterol Sulfate 3 Ml Ampul.Neb INHALATION Q8H PRN SHORTNESS OF BREATH Atorvastatin Calcium 10 mg 10/08/24 22:30 10/08/24 23:05 Atorvastatin Calcium 10 Mg Tablet PO Not Given QHS [facility] Collagenase 1 applic 10/09/24 10:00 Collagenase 30gm Tube TOPICAL DAILY [facility] Protocol Dicyclomine HCl 10 mg 10/09/24 07:00 10/09/24 10:07 Dicyclomine 10 Mg Capsule PO Not Given TIDAC [facility] Guaifenesin 10 ml 10/08/24 22:30 Guaifenesin Dm 10 Ml Udc PO Q8H PRN cough Hydrocortisone Acetate 25 mg 10/08/24 22:30 10/09/24 10:07 Hydrocortisone 25 Mg Suppository RC Not Given Q12 [facility] Piperacillin Sod/Tazobactam 50 mls @ 12.5 mls/hr 10/08/24 22:00 10/09/24 10:08 Sod 3.375 gm/ Sodium Chloride IV Infused Q8 KORINA Infusion Sodium Chloride 1,000 mls @ 70 mls/hr 10/08/24 22:30 10/09/24 10:08 IV 10/09/24 12:47 0 mls/hr .[id number] [facility] Infusion Mesalamine 400 mg 10/09/24 22:00 Mesalamine 400 Mg Capsule.Dr PO BID [facility] Multivitamins 1 tablet 10/09/24 08:00 10/09/24 10:07 Multivitamins,Therapeutic Tablet [facility] Pantoprazole Sodium 40 mg 10/09/24 10:00 10/09/24 10:07 Pantoprazole Sodium 40 Mg Tablet PO Not Given DAILY [facility] Pregabalin 150 mg 10/09/24 22:30 Pregabalin 75 Mg Capsule PO BID [facility]
--- NOTE | 2024-10-09 12:38 | NURSING ---
Pt off unit for MRI
--- NOTE | 2024-10-09 12:56 | NURSING ---
Pt's friend Nima Becerril called in demanding information on pt... told him he was not listed to receive information. Very verbally aggressive and insistent that he receive updates saying he was included in [facility] paperwork for contacts. Said he was calling Nunu to have her call in to give permission. Nunu called in minutes later to instruct staff to NOT give any information to Nima regarding medical care.
[2024-10-09] MEDS: Dicyclomine 10 MG Capsule PO (13:39)
[2024-10-09] MEDS: Lactobacillis Acidophilus 1 CAP PO ×3 (13:39→21:22)
[2024-10-09] MEDS: Collagenase 30gm Tube 1 APPLIC TOPICAL (13:46)
--- NOTE | 2024-10-09 13:48 | WOUNDNOTE ---
wound photo: sacrum
--- NOTE | 2024-10-09 13:48 | WOUNDNOTE ---
wound photo: left lateral back
--- NOTE | 2024-10-09 14:10 | CASEMGMT ---
MAUREEN called patient's Nunu and confirmed the plan is for patient to return to [facility] at discharge. Nunu said she was told some floridalma named Herb keeps calling in and wanting information on patient. Nunu said she does not want this individual to get any information on patient. He is not family. MAUREEN assured Nunu he is not on the list so no hospital staff should give him information unless patient cleared up and said it was okay. Plan: d/c back to [facility] pending being medically ready. Checking with [facility] to see if he will need a new pre-cert. Rachel Shultz ICE CREAM DIPPER MUNIR
--- NOTE | 2024-10-09 14:36 | CASEMGMT ---
Discharge Planning Updates sent to [facility]. Asked if precert will be needed to return. Awaiting response. Kaity Ramirez DC Planning Asst.
[2024-10-09] MEDS: Sodium Chloride 3% 500 ML IV.SOLN. INHALATION ×2 (14:39→22:40)
--- NOTE | 2024-10-09 14:50 | CASEMGMT ---
Patient will need insurance authorization to return. Rachel Shultz EMISSIONS TESTING TECHNICIAN MUNIR
--- NOTE | 2024-10-09 16:00 | CASEMGMT ---
Spoke with patients to complete HALLMAN form. HALLMAN form explained to who voiced understanding. Original form placed in pt?s chart. Pts declined copy. Kaity Ramirez, Discharge Planning Asst
[2024-10-09 16:17] LABS: Bedside Glucose 155 mg/dL (74-106)
--- NOTE | 2024-10-09 16:40 | PN.HOSP_ITS ---
Subjective Subjective No issues overnight, resting comfortably on my exam. CT shows multiple cavitary lesions in both lungs and in the upper lobes. Objective Data Objective Data Vital Signs: Vital Signs Temp Pulse Resp BP Pulse Ox O2 Del Method O2 Flow Rate 98.5 F 109 H 16 93/64 94 Room Air 2 10/09/24 15:55 10/09/24 15:55 10/09/24 15:55 10/09/24 15:55 10/09/24 15:55 10/09/24 15:55 10/09/24 09:14 FiO2 2 10/08/24 20:00 Oxygen Flow Rate (L/min) 2 Oxygen Delivery Method Room Air Weight: 140 lb 14.394 oz Body Mass Index (BMI) 19.6 Intake & Output: Intake and Output for Last 24 Hours 10/08/24 10/09/24 10/10/24 03:59 03:59 03:59 Intake Total 550 / 550 825.83 / 825.83 Output Total 100 / 100 Balance 550 / 550 725.83 / 725.83 Lab / Micro Data 10/10/24 06:47 10/10/24 06:47 Labs: Laboratory Results - last 24 hr 10/08/24 17:15: WBC 8.7, RBC 3.88 L, Hgb 11.4 L, Hct 35.1 L, MCV 90.5, MCH 29.4, MCHC 32.5, RDW Std Deviation 47.8 H, RDW Coeff of Janice 14.5, Plt Count 188, MPV 9.5, Immature Gran % (Auto) 4.800 H, Neut % (Auto) 70.0, Lymph % (Auto) 18.0 L, [place] % (Auto) 5.7, Eos % (Auto) 1.0, Baso % (Auto) 0.5, Absolute Neuts (auto) 6.1, Absolute Lymphs (auto) 1.57, Nucleated RBC % 0, Sodium 134, Potassium 4.3, Chloride 99, Carbon Dioxide 25.8, Anion Gap 9, BUN 16, Creatinine 0.45 L, Estim Creat Clear Calc 74.34, Est GFR (MDRD) Non-Af 111, BUN/Creatinine Ratio 34.9 H, Glucose 155 H, Hemoglobin A1c 6.1, Calcium 9.0, NT pro BNP II 187, Vitamin B12 750, TSH 1.900, Ethyl Alcohol < 10.1 10/08/24 17:27: Urine Color Yellow, Urine Clarity Clear, Urine pH 5.0, Ur Specific [place] 1.020, Urine Protein 30 H, Urine Glucose (UA) 1000 H, Urine Ketones Negative, Urine Occult Blood 10 H, Urine Nitrite Negative, Urine Bilirubin Negative, Urine Urobilinogen Normal, Ur Leukocyte Esterase Negative, Urine RBC 0-5 SEEN, Urine WBC 0-5 SEEN, Ur Squamous Epith Cells 0-5 SEEN, Calcium Oxalate Crystal 1+, Urine Bacteria 0 SEEN, Urine Mucus 0 SEEN 10/09/24 05:17: Urine Opiates Screen NEGATIVE, U Buprenorphine Qual NEGATIVE, Ur Oxycodone Screen NEGATIVE, Urine Methadone Screen NEGATIVE, Urine Fentanyl Screen NEGATIVE, Ur Barbiturates Screen NEGATIVE, Ur Phencyclidine Scrn NEGATIVE, Ur Amphetamines Screen NEGATIVE, U Benzodiazepines Scrn NEGATIVE, Urine Cocaine Screen NEGATIVE, U Cannabinoids Screen NEGATIVE 10/09/24 05:41: Triglycerides 131, Cholesterol 160, LDL Cholesterol, Calc 93, VLDL Cholesterol 26, HDL Cholesterol 41, Cholesterol/HDL Ratio 3.87, Serum Folate 18.30 10/09/24 15:53: POC Glucose 155 H Micro: Microbiology 10/09/24 12:35 Nasal Secretion MRSA (PCR) - Final 10/09/24 12:35 Mucosa - Nose SARS-CoV-2, Influenza & RSV (PCR) - Final 10/09/24 05:17 Urine, Clean Catch Legionella Antigen - Final 10/09/24 05:17 Urine, Clean Catch Streptococcus pneumoniae Antigen (M - Final 10/08/24 22:45 Stool Stool Occult Blood (ARNALDO) - Final Radiography Diagnostic Testing: Radiology Impression Abdomen/Pelvis CT 10/08/24 16:57 IMPRESSION: 1. Development of a right middle lobe cavitary lesion, which is indeterminate and may represent tuberculosis or other non tuberculosis mycobacterial infection, atypical infection due to aspiration pneumonia. Neoplasm such as pulmonary metastases or squamous cell carcinoma of the lung is felt less likely. 2. Increased ground-glass opacification and scattered pulmonary nodules, likely infectious/inflammatory in etiology such as pneumonitis/pneumonia. 3. Interval large bowel resection and anastomosis with fluid distention and mural thickening of the sigmoid colon and rectum distal to the anastomotic site. Findings are indeterminate and may represent postoperative change or recurrent colitis. Dr. Chavez discussed findings with Dr. Crandall at 9:30 pm on 10/08/24. 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 This would be in the anterior cerebral artery distribution and involve some polar and anteromedial frontal branches. This may alternately be due to old trauma with shearing injury. Concurrent acute and/or subacute ischemic change not excluded if felt clinically appropriate, an MRI of the brain with diffusion imaging could be performed for further evaluation. Reading Location: [facility] Chest X-Ray 10/08/24 17:50 IMPRESSION: 1. Findings compatible with lobar pneumonia. The known right middle lobe cavitary lesion is not well-visualized. 2. Cardiomegaly and pulmonary venous congestion. Reading Location: [facility] Echocardiogram 10/08/24 20:18 Interpretation Summary Normal LV size. Left ventricular systolic function is normal. The left ventricular ejection fraction is 65 %. Trisinus/trileaflet aortic valve. Ordering Physician: Khris Landrum Referring Physician: Giorgio Levin Performed By: Elena Johnson RDCS Chest CT 10/09/24 09:37 IMPRESSION: 1. Constellation of findings including multifocal thick-walled cavitary lesions (some are large measuring up to 5.1 cm and some are microcavitations), multifocal ground-glass, reticular and airspace disease. All these findings have a predilection for the upper lung zones. Differential considerations include post-primary pulmonary tuberculosis as well as other bacterial or atypical cavitary pneumonias such as aspergillosis. Cavitary metastatic disease or septic emboli are also differential considerations, however, less likely based on the size and distribution. Acute and subacute disease features are present. 2. Moderate emphysematous disease. Reading Location: [facility] Brain MRI 10/09/24 20:18 IMPRESSION: 1. No evidence of acute ischemia. 2. Chronic area of encephalomalacia in the right frontal lobe. Reading Location: [facility] Physical Exam Narrative General: Alert, Cooperative, No apparent distress HEENT: Atraumatic, PERRLA, EOMI, Normocephalic Oral: Moist Mucosa Neck: Supple, No JVD Lungs: Diminished, Normal air movement, No rhonchi, No wheeze, No rales Cardiovascular: Regular rate, Regular Rhythm, Normal S1, Normal S2, No murmurs Abdomen: Soft, Non Tender, Non-Distended, No Hepato-splenomegaly Extremities: No edema, Capillary Refill Less than 3 Seconds Skin: No rashes, No breakdown Musculoskeletal: No Tenderness to Palpation of Joints or Extremities Neurological: No focal neurological deficits, moves all extremities Psych/Mental Status: Flat Assessment & Plan Assessment/Plan (1) Altered mental status: QUALIFIERS: Altered mental status type: disorientation Qualified Code(s): R41.0 - Disorientation, unspecified (2) Cavitary pneumonia: (3) History of alcohol abuse: (4) History of tobacco abuse: PLAN: Plan 1. Acute metabolic encephalopathy due to cavitary pneumonia ? Currently precautions for TB though this is unlikely as his TB Gold test in June was normal and he has not been any where where TB is endemic ? Appreciate pulmonology and ID's assistance, CT chest is pending ? Neurology was consulted for possible stroke MRI is negative for stroke ? Will follow-up with neurology's recommendations with labs and thiamine replacement ? In the meantime continue with airborne precautions and sputum samples to be able to definitively rule out TB ? Continue with broad-spectrum antibiotics 2. Ulcerative colitis status post colon resection/GERD ? He was transferred to [place] for colectomy and anastomosis ? Continue with Bentyl and mesalamine ? Continue PPI 3. Hyperlipidemia ? Stable ? Continue with statin DVT: SCDs Charges/Coding Visit Charges Inpatient E&M: 59946 Subs Hosp L2
--- NOTE | 2024-10-09 20:18 | MRI_ITS ---
PROCEDURE: BRAIN WITHOUT CONTRAST 10/09/2024 REASON FOR EXAM: ABNORMAL BRAIN CT SUSP FOR CVA. TECHNIQUE: Brain MRI without intravenous contrast. COMPARISON: 10/08/2024 FINDINGS: No evidence of acute ischemia or mass lesion. A small chronic area of encephalomalacia is present in the right frontal lobe. There are mild scattered foci of T2/FLAIR signal hyperintensity in the deep white matter, most likely due to mild chronic ischemic microvascular disease no intracranial hemorrhage. The ventricles and sulci are normal in appearance.No extra-axial collection or midline shift. The posterior fossa structures are within normal limits. The orbits are unremarkable. There are small suspected polyps in the left maxillary sinus. The calvarium and soft tissues are unremarkable. MRI/Brain without Contrast IMPRESSION: 1. No evidence of acute ischemia. 2. Chronic area of encephalomalacia in the right frontal lobe. Reading Location: [facility]
[2024-10-09] MEDS: MESALAMINE 400 MG CAPSULE.DR PO (21:22)
[2024-10-09] MEDS: Pregabalin 75 MG Capsule 150 MG PO (21:22)
[2024-10-09] MEDS: Atorvastatin Calcium 10 MG Tablet PO (21:23)
[2024-10-09] MEDS: Hydrocortisone 25 MG Suppository RC (21:23)
[2024-10-09 22:15] LABS: Bedside Glucose 109 mg/dL (74-106)
--- NOTE | 2024-10-09 22:35 | CPS ---
Pt was unable to expectorate sputum. He has a moist cough without sputum production.
[2024-10-10] VITALS (10 sets, daily range): BP systolic 95–102; BP diastolic 61–75; PULSE 91–108; RESP 15–22; TEMP 36.4–37.1; O2SAT 93–98; BMI 19.6
[2024-10-10] MEDS: Dicyclomine 10 MG Capsule PO ×3 (06:37→16:18)
[2024-10-10] MEDS: Piperacil/Tazobactam 3.375 GM in 0.9% Normal Saline (50mL MB+) 50 ML IV ×3 (06:38→22:27)
[2024-10-10] MEDS: Sodium Chloride 3% 500 ML IV.SOLN. INHALATION ×2 (07:03→17:24)
[2024-10-10 07:08] LABS: Bedside Glucose 74 mg/dL (74-106)
[2024-10-10 07:26] LABS: Absolute Lymphocyte Count 1.11 X10^3/uL (0.83-4.51); Absolute Neutrophil Count 4.6 X10^3/uL (2.0-7.7); Basophil# 0.07 X10^3/uL; Basophil% 1.1 % (0-1); Eosinophil# 0.11 X10^3/uL; Eosinophils% 1.7 % (0-5); Hematocrit 33.1 % (40-54); Hemoglobin 10.4 g/dL (13.0-16.5); Lymphocyte # 1.11 X10^3/ul (0.83-4.51); Mean Corp Hgb Conc 31.4 g/dL (32-36); Mean Corpuscular Hgb 28.8 pg (27.0-32.0); Mean Corpuscular Volume 91.7 fL (80-94); Mean Platelet Vol. 9.2 fl (6.2-12.0); Monocyte# 0.33 X10^3/uL; Monocyte% 5.1 % (0-10); NRBC Flagged by Analyzer 0 % (0-5); Neutrophil # 4.63 X10^3/uL (2.7-7.7); Platelet Count 160 K/mm3 (150-450); RBC Distribution Width CV 14.6 % (11.6-14.6); Red Blood Count 3.61 M/mm3 (4.6-6.2); White Blood Count 6.5 K/mm3 (4.4-11.0)
[2024-10-10 08:04] LABS: Anion Gap 9 (5-15); BUN 10 mg/dL (4-19); BUN/Creat Ratio 18.9 RATIO (10-20); Calcium,Total 8.4 mg/dL (7.6-11.0); Carbon Dioxide 22.4 mmol/L (21.0-32.0); Chloride 104 mmol/L (98-108); Creatinine, Serum 0.53 mg/dL (0.70-1.20); EST Glomerular Filtration Rate 106 (>60); Estimated Creatinine Clearance 74.34 ml/min (50-250); Glucose 83 mg/dL (70-99); Potassium 3.6 mmol/L (3.3-5.1); Sodium Level 135 mmol/L (133-145)
[2024-10-10] MEDS: Pantoprazole Sodium 40 MG Tablet PO (09:44)
[2024-10-10] MEDS: Multivitamins,Therapeutic Tablet 1 TABLET PO (09:44)
--- NOTE | 2024-10-10 09:47 | PCM.PN.HOSP ---
Subjective Subjective much the same as yesterday no new issues overnight Objective Data Objective Data Vital Signs: Vital Signs Temp Pulse Resp BP Pulse Ox O2 Del Method O2 Flow Rate 97.6 F L 102 H 15 96/67 96 Nasal Cannula 3 10/10/24 09:40 10/10/24 09:40 10/10/24 09:40 10/10/24 09:40 10/10/24 09:40 10/10/24 09:40 10/10/24 09:40 FiO2 2 10/08/24 20:00 Oxygen Flow Rate (L/min) 3 Oxygen Delivery Method Nasal Cannula Weight: 140 lb 14.394 oz Body Mass Index (BMI) 19.6 Intake & Output: Intake and Output for Last 24 Hours 10/09/24 10/10/24 10/11/24 03:59 03:59 03:59 Intake Total 550 / 550 1025.83 / 1025.83 Output Total 300 / 300 Balance 550 / 550 725.83 / 725.83 Lab / Micro Data 10/10/24 06:47 10/10/24 06:47 Labs: Laboratory Results - last 24 hr 10/09/24 15:53: POC Glucose 155 H 10/09/24 21:28: POC Glucose 109 H 10/10/24 06:34: POC Glucose 74 10/10/24 06:47: WBC 6.5, RBC 3.61 L, Hgb 10.4 L, Hct 33.1 L, MCV 91.7, MCH 28.8, MCHC 31.4 L, RDW Std Deviation 49.0 H, RDW Coeff of Janice 14.6, Plt Count 160, MPV 9.2, Immature Gran % (Auto) 4.100 H, Neut % (Auto) 71.0 H, Lymph % (Auto) 17.0 L, [place] % (Auto) 5.1, Eos % (Auto) 1.7, Baso % (Auto) 1.1 H, Absolute Neuts (auto) 4.6, Absolute Lymphs (auto) 1.11, Nucleated RBC % 0, Sodium 135, Potassium 3.6, Chloride 104, Carbon Dioxide 22.4, Anion Gap 9, BUN 10, Creatinine 0.53 L, Estim Creat Clear Calc 74.34, Est GFR (MDRD) Non-Af 106, BUN/Creatinine Ratio 18.9, Glucose 83, Calcium 8.4 Micro: Microbiology 10/09/24 12:35 Nasal Secretion MRSA (PCR) - Final 10/09/24 12:35 Mucosa - Nose SARS-CoV-2, Influenza & RSV (PCR) - Final 10/09/24 05:17 Urine, Clean Catch Legionella Antigen - Final 10/09/24 05:17 Urine, Clean Catch Streptococcus pneumoniae Antigen (M - Final 10/08/24 22:45 Stool Stool Occult Blood (ARNALDO) - Final Radiography Diagnostic Testing: Radiology Impression Carotid Duplex 10/08/24 20:18 Interpretation Summary Mild (<50%) stenosis right extracranial internal carotid. Mild (<50%) stenosis left extracranial internal carotid. Patent and antegrade vertebrals bilaterally. Ordering Physician: Khris Landrum Referring Physician: N/A Performed By: Baron Taylor RVT Echocardiogram 10/08/24 20:18 Interpretation Summary Normal LV size. Left ventricular systolic function is normal. The left ventricular ejection fraction is 65 %. Trisinus/trileaflet aortic valve. Ordering Physician: Khris Landrum Referring Physician: Giorgio Levin Performed By: Elena Johnson RDCS Chest CT 10/09/24 09:37 IMPRESSION: 1. Constellation of findings including multifocal thick-walled cavitary lesions (some are large measuring up to 5.1 cm and some are microcavitations), multifocal ground-glass, reticular and airspace disease. All these findings have a predilection for the upper lung zones. Differential considerations include post-primary pulmonary tuberculosis as well as other bacterial or atypical cavitary pneumonias such as aspergillosis. Cavitary metastatic disease or septic emboli are also differential considerations, however, less likely based on the size and distribution. Acute and subacute disease features are present. 2. Moderate emphysematous disease. Reading Location: [facility] Brain MRI 10/09/24 20:18 IMPRESSION: 1. No evidence of acute ischemia. 2. Chronic area of encephalomalacia in the right frontal lobe. Reading Location: [facility] Physical Exam Narrative General: Alert, oriented x 1, cooperative, No apparent distress HEENT: Atraumatic, PERRLA, EOMI, Normocephalic Oral: Moist Mucosa Neck: Supple, No JVD Lungs: Diminished, Normal air movement, No rhonchi, No wheeze, No rales Cardiovascular: Regular rate, Regular Rhythm, Normal S1, Normal S2, No murmurs Abdomen: Soft, Non Tender, Non-Distended, No Hepato-splenomegaly Extremities: No edema, Capillary Refill Less than 3 Seconds Skin: No rashes, No breakdown Musculoskeletal: No Tenderness to Palpation of Joints or Extremities Neurological: No focal neurological deficits, moves all extremities Psych/Mental Status: Flat Assessment & Plan Assessment/Plan (1) Altered mental status: QUALIFIERS: Altered mental status type: disorientation Qualified Code(s): R41.0 - Disorientation, unspecified (2) Cavitary pneumonia: (3) History of alcohol abuse: (4) History of tobacco abuse: PLAN: Plan 1. Acute metabolic encephalopathy due to cavitary pneumonia ? Currently precautions for TB though this is unlikely as his TB Gold test in June was normal and he has not been any where where TB is endemic ? Appreciate pulmonology and ID's assistance, CT chest demonstrates multiple areas of cavitary lesions in both lungs, Aspergillus antibodies are pending ? Neurology was consulted for possible stroke MRI is negative for stroke ? Will follow-up with neurology's recommendations with labs and thiamine replacement ? In the meantime continue with airborne precautions and sputum samples to be able to definitively rule out TB ? Continue with broad-spectrum antibiotics 2. Ulcerative colitis status post colon resection/GERD ? He was transferred to [place] for colectomy and anastomosis ? Continue with Bentyl and mesalamine ? Continue PPI 3. Hyperlipidemia ? Stable ? Continue with statin DVT: SCDs Charges/Coding Visit Charges Inpatient E&M: 00294 Subs Hosp L2
--- NOTE | 2024-10-10 09:54 | CASEMGMT ---
Patient is from a [facility] for skilled rehab. Patient is only alert and oriented times 1. SW did speak with patient's who expressed no concerns. Rachel AMARAL
[2024-10-10] MEDS: Lactobacillis Acidophilus 1 CAP PO ×4 (09:56→21:53)
[2024-10-10] MEDS: MESALAMINE 400 MG CAPSULE.DR PO ×2 (09:56→21:54)
[2024-10-10] MEDS: Pregabalin 75 MG Capsule 150 MG PO ×2 (09:57→21:54)
[2024-10-10] MEDS: Collagenase 30gm Tube 1 APPLIC TOPICAL (09:57)
--- NOTE | 2024-10-10 10:06 | PN.CC_ITS ---
Assessment & Plan Assessment/Plan (1) Abnormal abdominal CT scan: PLAN: Plan RECOMMENDATIONS: 1. Antimicrobials per ID recommendations. 2. Awaiting sputum for AFB, prior to consideration for bronchoscopy. 3. Maintain aspiration precautions with dietary advancement per speech therapy. 4. Will consider bronchoscopy once TB rule out complete. IMPRESSIONS: 1. Abnormal CT scan of the abdomen Incidental note was made of a right middle lobe cavitary lesion on CT imaging of the abdomen and pelvis. Subsequent dedicated chest CT revealed multiple cavitary lesions and ground glass opacities. Ultimately, my suspicion for tuberculosis is very low. I am more concerned with the findings noted on CT are likely the consequence of aspiration. However, the patient was placed in airborne precautions on admission with sputum for AFB pending. Once completed, consideration can be given for bronchoscopy, as early as Sunday. 2. History of ulcerative colitis/GERD/neuropathy/hyperlipidemia/diabetes mellitus Complicates care, management, recovery and prognosis. Continue supportive measures as noted above. This note was generated with [employer] dictation software. It may contain incorrect words, spelling, and punctuation that were not noted in checking the note before signing. Subjective Subjective The patient was seen and examined at the bedside this morning. Events from the last 24 hours have been reviewed. The patient is currently afebrile, hemodynamically stable and maintaining appropriate oxygen saturations on 2 L/min via nasal cannula. No overnight issues were identified. The patient is currently working with physical therapy. White blood cell count remains normal. Hemoglobin and platelet count are stable. Chemistry profile was unremarkable. Sputum for AFB are still pending. Objective Data Objective Data The patient's most recent lab work, culture data and imaging studies have all been personally reviewed. Vital Signs: Vital Signs Temp Pulse Resp BP Pulse Ox O2 Del Method O2 Flow Rate 97.6 F L 102 H 15 96/67 95 Nasal Cannula 2 10/10/24 09:40 10/10/24 09:40 10/10/24 09:40 10/10/24 09:40 10/10/24 09:40 10/10/24 09:40 10/10/24 09:40 FiO2 2 10/08/24 20:00 Oxygen Flow Rate (L/min) 2 Oxygen Delivery Method Nasal Cannula Weight: 140 lb 14.394 oz Body Mass Index (BMI) 19.6 Intake & Output: Intake and Output for Last 24 Hours 10/08/24 10/09/24 10/10/24 23:59 23:59 23:59 Intake Total 500 / 500 925.83 / 925.83 150 / 150 Output Total 100 / 100 200 / 200 Balance 500 / 500 825.83 / 825.83 -50 / -50 Lab / Micro Data Attestation: I reviewed the patient's lab results. 10/10/24 06:47 10/10/24 06:47 Labs: Laboratory Results - last 24 hr 10/09/24 15:53: POC Glucose 155 H 10/09/24 21:28: POC Glucose 109 H 10/10/24 06:34: POC Glucose 74 10/10/24 06:47: WBC 6.5, RBC 3.61 L, Hgb 10.4 L, Hct 33.1 L, MCV 91.7, MCH 28.8, MCHC 31.4 L, RDW Std Deviation 49.0 H, RDW Coeff of Janice 14.6, Plt Count 160, MPV 9.2, Immature Gran % (Auto) 4.100 H, Neut % (Auto) 71.0 H, Lymph % (Auto) 17.0 L , [place] % (Auto) 5.1, Eos % (Auto) 1.7, Baso % (Auto) 1.1 H, Absolute Neuts (auto) 4.6, Absolute Lymphs (auto) 1.11, Nucleated RBC % 0, Sodium 135, Potassium 3.6, Chloride 104, Carbon Dioxide 22.4, Anion Gap 9, BUN 10, C reatinine 0.53 L, Estim Creat Clear Calc 74.34, Est GFR (MDRD) Non-Af 106, BUN/Creatinine Ratio 18.9, Glucose 83, Calcium 8.4 Micro: Microbiology 10/09/24 12:35 Nasal Secretion MRSA (PCR) - Final 10/09/24 12:35 Mucosa - Nose SARS-CoV-2, Influenza & RSV (PCR) - Final 10/09/24 05:17 Urine, Clean Catch Legionella Antigen - Final 10/09/24 05:17 Urine, Clean Catch Streptococcus pneumoniae Antigen (M - Final 10/08/24 22:45 Stool Stool Occult Blood (ARNALDO) - Final Radiography Diagnostic Testing: Radiology Impression Carotid Duplex 10/08/24 20:18 Interpretation Summary Mild (<50%) stenosis right extracranial internal carotid. Mild (<50%) stenosis left extracranial internal carotid. Patent and antegrade vertebrals bilaterally. Ordering Physician: Khris Landrum Referring Physician: N/A Performed By: Baron Taylor T Echocardiogram 10/08/24 20:18 Interpretation Summary Normal LV size. Left ventricular systolic function is normal. The left ventricular ejection fraction is 65 %. Trisinus/trileaflet aortic valve. Ordering Physician: Khris Landrum Referring Physician: Giorgio Levin Performed By: Elena Johnson MARIAH Chest CT 10/09/24 09:37 IMPRESSION: 1. Constellation of findings including multifocal thick-walled cavitary lesions (some are large measuring up to 5.1 cm and some are microcavitations), multifocal ground-glass, reticular and airspace disease. All these findings have a predilection for the upper lung zones. Differential considerations include post-primary pulmonary tuberculosis as well as other bacterial or atypical cavitary pneumonias such as aspergillosis. Cavitary metastatic disease or septic emboli are also differential considerations, however, less likely based on the size and distribution. Acute and subacute disease features are present. 2. Moderate emphysematous disease. Reading Location: [facility] Brain MRI 10/09/24 20:18 IMPRESSION: 1. No evidence of acute ischemia. 2. Chronic area of encephalomalacia in the right frontal lobe. Reading Location: [facility] Physical Exam Const alert and no apparent distress General Appearance: cooperative HEENT normocephalic and head/scalp atraumatic Eyes EOMs intact bilaterally, conjunctivae normal and no scleral icterus Neck supple General: trachea midline Chest inspection of chest normal Resp normal respiratory effort Auscultation: diminished lung sounds Cardio regular rate and regular rhythm GI normal to inspection, nondistended, normoactive bowel sounds Extremity no clubbing, cyanosis or edema Skin no rashes or lesions noted Neuro CN's II-XII intact bilaterally, moves all extremities and no focal motor deficits Psych Mood & Affect: flat affect Charges/Coding Visit Charges Inpatient E&M: 98416 Subs Hosp L2
--- NOTE | 2024-10-10 10:29 | PN.ID_ITS ---
Physical Exam Narrative Feeling a little better. Some cough and dyspnea. No sputum. No fever. Const alert and no apparent distress General Appearance: cooperative Resp Auscultation: rhonchi Cardio regular rate and regular rhythm GI soft to palpation, non-tender and non-distended Skin no rashes or lesions noted ID ID: Route of nutrition/ use of supplements: [] Nutritional Intake: [] IV Site: [] Orantes Catheter: [] Assessment & Plan Assessment/Plan (1) Cavitary pneumonia: PLAN: TB quantiferon neg 06/2024, so overall low suspicion for active TB. Reports some h/o aspiration. Recommend swallow eval. Ordered covid, sputum cx, AFB sputum, and MRSA pcr. Cont zosyn. Pulm following. Will try for induced sputum AFB. Will follow, d/w Dr. Troncoso and Dr. Chen (2) Ulcerative colitis: QUALIFIERS: Ulcerative colitis location: unspecified ulcerative colitis location Digestive disease complication type: without complication Qualified Code(s): K51.90 - Ulcerative colitis, unspecified, without complicati ons
[2024-10-10 10:50] LABS: Ammonia 18.2 umol/L (16-60)
[2024-10-10 12:24] LABS: Bedside Glucose 116 mg/dL (74-106)
--- NOTE | 2024-10-10 14:13 | CPS ---
Called down to Micro and spoke with Aggie, patient coughed up a sample and a respiratory gram stain was received, but no acid fast was received. She will add this to the current sample for 1330.
[2024-10-10] MEDS: Thiamine Hydrochloride 500 MG in 0.9% Normal Saline (50mL Bag) 50 ML 200 MG IV ×2 (16:18→21:52)
[2024-10-10] MEDS: Enoxaparin 40 MG/0.4 ML Syringe SC (17:46)
[2024-10-10] MEDS: Ipratropium/Albuterol Sulfate 3 ML AMPUL.NEB INHALATION (19:37)
[2024-10-10] MEDS: Atorvastatin Calcium 10 MG Tablet PO (21:53)
[2024-10-10 23:52] LABS: Bedside Glucose 162 mg/dL (74-106)
[2024-10-11] VITALS (8 sets, daily range): BP systolic 85–110; BP diastolic 57–72; PULSE 90–117; RESP 16–20; TEMP 36.3–36.8; O2SAT 92–97; BMI 19.6
[2024-10-11] MEDS: Sodium Chloride 3% 500 ML IV.SOLN. INHALATION (01:25)
[2024-10-11] MEDS: Thiamine Hydrochloride 500 MG in 0.9% Normal Saline (50mL Bag) 50 ML 200 MG IV ×3 (05:27→23:01)
[2024-10-11] MEDS: Piperacil/Tazobactam 3.375 GM in 0.9% Normal Saline (50mL MB+) 50 ML IV ×3 (06:00→23:31)
[2024-10-11] MEDS: Dicyclomine 10 MG Capsule PO ×3 (06:09→18:26)
[2024-10-11 06:37] LABS: Absolute Lymphocyte Count 0.86 X10^3/uL (0.83-4.51); Absolute Neutrophil Count 3.2 X10^3/uL (2.0-7.7); Basophil# 0.01 X10^3/uL; Basophil% 0.2 % (0-1); Eosinophil# 0.07 X10^3/uL; Eosinophils% 1.5 % (0-5); Hematocrit 28.6 % (40-54); Lymphocyte # 0.86 X10^3/ul (0.83-4.51); Lymphocyte % 18.7 % (19-41); Mean Corp Hgb Conc 31.5 g/dL (32-36); Mean Corpuscular Hgb 29.1 pg (27.0-32.0); Mean Corpuscular Volume 92.6 fL (80-94); Mean Platelet Vol. 9.8 fl (6.2-12.0); Monocyte# 0.23 X10^3/uL; NRBC Flagged by Analyzer 0 % (0-5); Neutrophil # 3.24 X10^3/uL (2.7-7.7); Neutrophil % 70.7 % (47-70); Platelet Count 145 K/mm3 (150-450); RBC Distribution Width CV 14.7 % (11.6-14.6); RBC Distribution Width SD 49.7 fl (35.1-43.9); Red Blood Count 3.09 M/mm3 (4.6-6.2); White Blood Count 4.6 K/mm3 (4.4-11.0)
[2024-10-11 08:03] LABS: Anion Gap 9 (5-15); BUN 11 mg/dL (4-19); BUN/Creat Ratio 17.6 RATIO (10-20); Calcium,Total 8.2 mg/dL (7.6-11.0); Carbon Dioxide 22.5 mmol/L (21.0-32.0); Chloride 106 mmol/L (98-108); Creatinine, Serum 0.61 mg/dL (0.70-1.20); EST Glomerular Filtration Rate 102 (>60); Estimated Creatinine Clearance 74.34 ml/min (50-250); Glucose 109 mg/dL (70-99); Sodium Level 137 mmol/L (133-145)
--- NOTE | 2024-10-11 08:54 | PCM.PN.HOSP ---
Subjective Subjective No issues overnight remains hemodynamically stable. Waiting for induced sputum to evaluate for TB Objective Data Objective Data Vital Signs: Vital Signs Temp Pulse Resp BP Pulse Ox O2 Del Method O2 Flow Rate 97.3 F L 91 18 92/58 L 97 Room Air 3 10/11/24 03:10 10/11/24 03:10 10/11/24 03:10 10/11/24 03:10 10/11/24 03:10 10/11/24 03:10 10/10/24 22:00 FiO2 2 10/08/24 20:00 Oxygen Flow Rate (L/min) 3 Oxygen Delivery Method Room Air Weight: 140 lb 14.394 oz Body Mass Index (BMI) 19.6 Intake & Output: Intake and Output for Last 24 Hours 10/10/24 10/11/24 10/12/24 03:59 03:59 03:59 Intake Total 1025.83 / 1025.83 560 / 560 55 / 55 Output Total 300 / 300 250 / 250 200 / 200 Balance 725.83 / 725.83 310 / 310 -145 / -145 Lab / Micro Data 10/11/24 05:42 10/11/24 05:42 Labs: Laboratory Results - last 24 hr 10/10/24 09:55: Ammonia 18.2 10/10/24 12:01: POC Glucose 116 H 10/10/24 23:31: POC Glucose 162 H 10/11/24 05:42: WBC 4.6, RBC 3.09 L, Hgb 9.0 L, Hct 28.6 L, MCV 92.6, MCH 29.1, MCHC 31.5 L, RDW Std Deviation 49.7 H, RDW Coeff of Janice 14.7 H, Plt Count 145 L, MPV 9.8, Immature Gran % (Auto) 3.900 H, Neut % (Auto) 70.7 H, Lymph % (Auto) 18.7 L, [place] % (Auto) 5.0, Eos % (Auto) 1.5, Baso % (Auto) 0.2, Absolute Neuts (auto) 3.2, Absolute Lymphs (auto) 0.86, Nucleated RBC % 0, Sodium 137, Potassium 4.0, Chloride 106, Carbon Dioxide 22.5, Anion Gap 9, BUN 11, Creatinine 0.61 L, Estim Creat Clear Calc 74.34, Est GFR (MDRD) Non-Af 102, BUN/Creatinine Ratio 17.6, Glucose 109 H, Calcium 8.2 Micro: Microbiology 10/09/24 12:35 Nasal Secretion MRSA (PCR) - Final 10/09/24 12:35 Mucosa - Nose SARS-CoV-2, Influenza & RSV (PCR) - Final 10/09/24 05:17 Urine, Clean Catch Legionella Antigen - Final 10/09/24 05:17 Urine, Clean Catch Streptococcus pneumoniae Antigen (M - Final 10/08/24 22:45 Stool Stool Occult Blood (ARNALDO) - Final Physical Exam Narrative General: Alert, oriented x 2, cooperative, No apparent distress HEENT: Atraumatic, PERRLA, EOMI, Normocephalic Oral: Moist Mucosa Neck: Supple, No JVD Lungs: Diminished, Normal air movement, No rhonchi, No wheeze, No rales Cardiovascular: Regular rate, Regular Rhythm, Normal S1, Normal S2, No murmurs Abdomen: Soft, Non Tender, Non-Distended, No Hepato-splenomegaly Extremities: No edema, Capillary Refill Less than 3 Seconds Skin: No rashes, No breakdown Musculoskeletal: No Tenderness to Palpation of Joints or Extremities Neurological: No focal neurological deficits, moves all extremities Psych/Mental Status: Flat Assessment & Plan Assessment/Plan (1) Altered mental status: QUALIFIERS: Altered mental status type: disorientation Qualified Code(s): R41.0 - Disorientation, unspecified (2) Cavitary pneumonia: (3) History of alcohol abuse: (4) History of tobacco abuse: PLAN: Plan 1. Acute metabolic encephalopathy due to cavitary pneumonia ? Currently precautions for TB though this is unlikely as his TB Gold test in June was normal and he has not been any where where TB is endemic ? Appreciate pulmonology and ID's assistance, CT chest demonstrates multiple areas of cavitary lesions in both lungs, Aspergillus antibodies are pending ? Neurology was consulted for possible stroke MRI is negative for stroke, can obtain an EEG on Sunday once we can take him out of precautions ? Will follow-up with neurology's recommendations with labs and thiamine replacement ? In the meantime continue with airborne precautions and sputum samples to be able to definitively rule out TB ? Continue with broad-spectrum antibiotics 2. Ulcerative colitis status post colon resection/GERD ? He was transferred to [place] for colectomy and anastomosis ? Continue with Bentyl and mesalamine ? Continue PPI 3. Hyperlipidemia ? Stable ? Continue with statin DVT: Lovenox Charges/Coding Visit Charges Inpatient E&M: 08234 Subs Hosp L2
[2024-10-11] MEDS: Multivitamins,Therapeutic Tablet 1 TABLET PO (09:40)
[2024-10-11] MEDS: Lactobacillis Acidophilus 1 CAP PO ×3 (09:40→23:05)
[2024-10-11] MEDS: MESALAMINE 400 MG CAPSULE.DR PO ×2 (09:40→23:05)
[2024-10-11] MEDS: Pantoprazole Sodium 40 MG Tablet PO (09:40)
[2024-10-11] MEDS: Pregabalin 75 MG Capsule 150 MG PO ×2 (09:40→23:05)
[2024-10-11] MEDS: 0.9% Normal Saline (1000mL) 1,000 ML 100 ML IV ×2 (11:04→23:01)
[2024-10-11 12:58] LABS: Magnesium 1.8 mg/dL (1.5-2.2); Phosphorus 3.1 mg/dL (2.7-4.5)
[2024-10-11] MEDS: Collagenase 30gm Tube 1 APPLIC TOPICAL (13:04)
[2024-10-11] MEDS: Atorvastatin Calcium 10 MG Tablet PO (23:05)
[2024-10-11 23:52] LABS: Bedside Glucose 122 mg/dL (74-106)
[2024-10-12] MEDS: Thiamine Hydrochloride 500 MG in 0.9% Normal Saline (50mL Bag) 50 ML 200 MG IV ×3 (05:00→21:44)
[2024-10-12] MEDS: Piperacil/Tazobactam 3.375 GM in 0.9% Normal Saline (50mL MB+) 50 ML IV ×3 (05:41→21:56)
[2024-10-12] MEDS: Dicyclomine 10 MG Capsule PO ×3 (06:27→17:21)
[2024-10-12 07:17] LABS: Absolute Lymphocyte Count 1.12 X10^3/uL (0.83-4.51); Basophil# 0.02 X10^3/uL; Basophil% 0.4 % (0-1); Eosinophil# 0.05 X10^3/uL; Eosinophils% 1.1 % (0-5); Hematocrit 25.6 % (40-54); Hemoglobin 8.5 g/dL (13.0-16.5); Lymphocyte # 1.12 X10^3/ul (0.83-4.51); Lymphocyte % 24.6 % (19-41); Mean Corp Hgb Conc 33.2 g/dL (32-36); Mean Corpuscular Hgb 29.6 pg (27.0-32.0); Mean Corpuscular Volume 89.2 fL (80-94); Mean Platelet Vol. 10.6 fl (6.2-12.0); Monocyte# 0.24 X10^3/uL; Monocyte% 5.3 % (0-10); NRBC Flagged by Analyzer 0 % (0-5); Neutrophil # 3.01 X10^3/uL (2.7-7.7); POSITIVE COUNT YES; RBC Distribution Width CV 14.2 % (11.6-14.6); RBC Distribution Width SD 45.9 fl (35.1-43.9); Red Blood Count 2.87 M/mm3 (4.6-6.2); White Blood Count 4.6 K/mm3 (4.4-11.0)
[2024-10-12 07:45] VITALS: BP 98/76; PULSE 107; RESP 22; TEMP 36.6; O2SAT 90
[2024-10-12 08:00] LABS: Anion Gap 10 (5-15); BUN 10 mg/dL (4-19); BUN/Creat Ratio 21.2 RATIO (10-20); Calcium,Total 7.6 mg/dL (7.6-11.0); Carbon Dioxide 18.7 mmol/L (21.0-32.0); Chloride 107 mmol/L (98-108); Creatinine, Serum 0.49 mg/dL (0.70-1.20); EST Glomerular Filtration Rate 109 (>60); Estimated Creatinine Clearance 74.34 ml/min (50-250); Glucose 87 mg/dL (70-99); Potassium 3.4 mmol/L (3.3-5.1); Sodium Level 135 mmol/L (133-145)
[2024-10-12 09:05] LABS: Differential Indicated SCAN CRITERIA MET
[2024-10-12 09:06] LABS: Platelet Estimate SLT DEC (ADEQ)
[2024-10-12] MEDS: 0.9% Normal Saline (1000mL) 1,000 ML 100 ML IV ×2 (09:50→20:00)
[2024-10-12 10:35] LABS: Bedside Glucose 90 mg/dL (74-106)
[2024-10-12] MEDS: Lactobacillis Acidophilus 1 CAP PO ×3 (10:40→22:00)
[2024-10-12] MEDS: MESALAMINE 400 MG CAPSULE.DR PO ×2 (10:40→21:56)
[2024-10-12] MEDS: Pantoprazole Sodium 40 MG Tablet PO (10:40)
[2024-10-12] MEDS: Multivitamins,Therapeutic Tablet 1 TABLET PO (10:40)
[2024-10-12] MEDS: Pregabalin 75 MG Capsule 150 MG PO ×2 (10:43→21:55)
--- NOTE | 2024-10-12 10:48 | PCM.PN.HOSP ---
Subjective Subjective No issues overnight however this morning he did fall out of bed and hit his head. No loss of consciousness and no neurological changes Objective Data Objective Data Vital Signs: Vital Signs Temp Pulse Resp BP Pulse Ox O2 Del Method O2 Flow Rate 97.9 F 107 H 22 H 98/76 90 Nasal Cannula 3 10/12/24 07:45 10/12/24 07:45 10/12/24 07:45 10/12/24 07:45 10/12/24 07:45 10/12/24 10:00 10/12/24 10:00 FiO2 2 10/08/24 20:00 Oxygen Flow Rate (L/min) 3 Oxygen Delivery Method Nasal Cannula Weight: 140 lb 14.394 oz Body Mass Index (BMI) 19.6 Intake & Output: Intake and Output for Last 24 Hours 10/11/24 10/12/24 10/13/24 03:59 03:59 03:59 Intake Total 560 / 560 2435 / 2485 1155 / 1155 Output Total 250 / 250 1050 / 1050 Balance 310 / 310 1385 / 1435 1155 / 1155 Lab / Micro Data 10/12/24 05:05 10/12/24 05:05 Labs: Laboratory Results - last 24 hr 10/11/24 05:42: Phosphorus 3.1, Magnesium 1.8 10/11/24 23:19: POC Glucose 122 H 10/12/24 05:05: WBC 4.6, RBC 2.87 L, Hgb 8.5 L, Hct 25.6 L, MCV 89.2, MCH 29.6, MCHC 33.2 D, RDW Std Deviation 45.9 H, RDW Coeff of Janice 14.2, Plt Count , MPV 10.6, Immature Gran % (Auto) 2.600 H, Neut % (Auto) 66.0, Lymph % (Auto) 24.6, [place] % (Auto) 5.3, Eos % (Auto) 1.1, Baso % (Auto) 0.4, Absolute Neuts (auto) 3.0, Absolute Lymphs (auto) 1.12, Nucleated RBC % 0, Platelet Estimate SLT DEC, Sodium 135, Potassium 3.4, Chloride 107, Carbon Dioxide 18.7 L, Anion Gap 10, BUN 10, Creatinine 0.49 L, Estim Creat Clear Calc 74.34, Est GFR (MDRD) Non-Af 109, BUN/Creatinine Ratio 21.2 H, Glucose 87, Calcium 7.6 10/12/24 06:27: POC Glucose 90 Micro: Microbiology 10/10/24 13:30 Sputum, Expectorated/Coughed Gram Stain - Final 10/10/24 13:30 Sputum, Expectorated/Coughed Respiratory Culture - Preliminary Staphylococcus aureus 10/09/24 12:35 Nasal Secretion MRSA (PCR) - Final 10/09/24 12:35 Mucosa - Nose SARS-CoV-2, Influenza & RSV (PCR) - Final 10/09/24 05:17 Urine, Clean Catch Legionella Antigen - Final 10/09/24 05:17 Urine, Clean Catch Streptococcus pneumoniae Antigen (M - Final 10/08/24 22:45 Stool Stool Occult Blood (ARNALDO) - Final Physical Exam Narrative General: Alert, oriented x 2, cooperative, No apparent distress HEENT: Atraumatic, PERRLA, EOMI, Normocephalic, minor trauma to his right forehead after his fall Oral: Moist Mucosa Neck: Supple, No JVD Lungs: Diminished, Normal air movement, No rhonchi, No wheeze, No rales Cardiovascular: Regular rate, Regular Rhythm, Normal S1, Normal S2, No murmurs Abdomen: Soft, Non Tender, Non-Distended, No Hepato-splenomegaly Extremities: No edema, Capillary Refill Less than 3 Seconds Skin: No rashes, No breakdown Musculoskeletal: No Tenderness to Palpation of Joints or Extremities Neurological: No focal neurological deficits, moves all extremities Psych/Mental Status: Flat Assessment & Plan Assessment/Plan (1) Altered mental status: QUALIFIERS: Altered mental status type: disorientation Qualified Code(s): R41.0 - Disorientation, unspecified (2) Cavitary pneumonia: (3) History of alcohol abuse: (4) History of tobacco abuse: PLAN: Plan 1. Acute metabolic encephalopathy due to cavitary pneumonia ? Currently precautions for TB though this is unlikely as his TB Gold test in June was normal and he has not been any where where TB is endemic ? Appreciate pulmonology and ID's assistance, CT chest demonstrates multiple areas of cavitary lesions in both lungs, Aspergillus antibodies are pending ? Neurology was consulted for possible stroke MRI is negative for stroke, can obtain an EEG on Sunday once we can take him out of precautions ? Will follow-up with neurology's recommendations with labs and thiamine replacement ? In the meantime continue with airborne precautions and sputum samples to be able to definitively rule out TB ? Continue with broad-spectrum antibiotics ? Initial respiratory cultures are showing Staph aureus and the MRSA screen was negative. The sputum smear is negative and he can be removed from precautions 2. Ulcerative colitis status post colon resection/GERD ? He was transferred to [place] for colectomy and anastomosis ? Continue with Bentyl and mesalamine ? Continue PPI 3. Hyperlipidemia ? Stable ? Continue with statin DVT: Lovenox Charges/Coding Visit Charges Inpatient E&M: 29015 Subs Hosp L2
[2024-10-12 13:16] LABS: Bedside Glucose 108 mg/dL (74-106)
[2024-10-12 13:56] VITALS: BP 114/69; PULSE 90; RESP 22; TEMP 36.6; O2SAT 96
[2024-10-12 16:25] VITALS: BMI 19.6
[2024-10-12] MEDS: Collagenase 30gm Tube 1 APPLIC TOPICAL (17:21)
[2024-10-12 18:18] LABS: Bedside Glucose 102 mg/dL (74-106)
[2024-10-12 20:00] VITALS: O2SAT 92
[2024-10-12 20:17] VITALS: BP 136/72; PULSE 107; RESP 18; TEMP 37.2; O2SAT 96
[2024-10-12 20:55] VITALS: BMI 19.6
[2024-10-12] MEDS: Atorvastatin Calcium 10 MG Tablet PO (21:56)
[2024-10-12 22:15] LABS: Bedside Glucose 85 mg/dL (74-106)
[2024-10-12 23:11] VITALS: O2SAT 94
[2024-10-13] VITALS (29 sets, daily range): BP systolic 72–115; BP diastolic 45–77; PULSE 74–134; RESP 14–40; TEMP 36.1–39.3; O2SAT 76–100; BMI 19.7
--- NOTE | 2024-10-13 | FLU_PTH ---
PATIENT: NISHA MARTINS LOC: [facility] U#:[id number] AGE/SX: 74/M ROOM: [facility] RE10/09/[address]: Dr. Lb Hall MD : 1950 BED: 1 DIS: 10/17/2024 SPEC #: [id number] RECD: 10/13/24 13:37 STATUS: SOUT REQ #: [id number] IRA: 10/13/24 00:[address]: Lb Hall DEPT: CYTOLOGY RECD BY: Zeyad Ordonez ENTERED: 10/13/24 13:38 SP TYPE: Fluid OTHR DR: MD Dr. Dangelo Hargrove MD Dr. Adan Mora, MD Dr. Alicia Zha, MD Dr. Bruce Arthur, MD Danielle Becker, MD Dr. Derek Brown, DO Dr. David de Lorenzo, MD Dr. Reji Laureano Dr., MD Dr. Edward Matheis, MD Dr. Gautam Baskaran, MD Dr. Yordanos Habtegebriel, MD Dr. Hemant Dand, MD Jesse Mindel, MD Dr. Jose A Bustos Dr., MD Jaysingh Singh, MD Dr. Justin Wong, MD Dr. Kimber Foust, MD Dr. Lamia Aljundi, MD LEBRON PAIGE, MD Margaret Beigel, MD Dr. Marisa Magana, MD Dr. Maryam Mian, MD Nabil Khandker, MD Dr. Nicholas F Kotsonis, MD Dr. Pritam Ghosh, MD Dr. Pavan Irukulla, MD Dr. Robert Leininger, MD Dr. Saad Farooqi, MD Dr. Sukhdeep Dhesi, MD Dr. Michael Merritt Dr., MD Sarita Maturu, MD Dr. Timothy Fernstrom, DO Dr. Vikram Anand, MD Dr. William Haden, MD Tissues: A - Bronchus of right middle lobe Procedures: Special Stain Group II Surgery Specimen Level IV Cytospin Fluid HEADER OPERATION: Bronchoscopy with BAL PRE-OP DIAGNOSIS: Abnormal chest CT TISSUE SUBMITTED: A- Right middle lobe fluid for cytology DIAGNOSIS CYTOLOGY A. Right middle lobe fluid, BAL: * No malignant cells seen. * Acute inflammation. * AFB, GMS, and PC stains are negative for acid fast bacilli, fungal organisms, and pneumocystis organisms, respectively. COMMENT The slides were reviewed in intradepartmental consultation by Dr Evonne Giles ([facility]). CYTOLOGY STUDY Slides are reviewed. CYTOLOGY GROSS A. Received is 15 ml of thick cloudy fluid labeled with the patient's name and and designated per the requisition as Right middle lobe. Submitted for cytology preparation (cytospin x1, cell block x1). 10/13/2024 CPT: 27624 , 29341h5
[2024-10-13] MEDS: Thiamine Hydrochloride 500 MG in 0.9% Normal Saline (50mL Bag) 50 ML 200 MG IV ×3 (05:24→21:53)
[2024-10-13] MEDS: Dicyclomine 10 MG Capsule PO ×3 (05:49→16:33)
[2024-10-13] MEDS: Collagenase 30gm Tube 1 APPLIC TOPICAL (05:49)
[2024-10-13] MEDS: Piperacil/Tazobactam 3.375 GM in 0.9% Normal Saline (50mL MB+) 50 ML IV ×3 (05:49→21:54)
[2024-10-13 06:29] LABS: Absolute Lymphocyte Count 0.83 X10^3/uL (0.83-4.51); Absolute Neutrophil Count 2.7 X10^3/uL (2.0-7.7); Basophil# 0.02 X10^3/uL; Basophil% 0.5 % (0-1); Eosinophil# 0.07 X10^3/uL; Eosinophils% 1.8 % (0-5); Hematocrit 27.1 % (40-54); Hemoglobin 8.8 g/dL (13.0-16.5); Lymphocyte # 0.83 X10^3/ul (0.83-4.51); Lymphocyte % 21.2 % (19-41); Mean Corp Hgb Conc 32.5 g/dL (32-36); Mean Corpuscular Volume 89.4 fL (80-94); Monocyte# 0.22 X10^3/uL; Monocyte% 5.6 % (0-10); NRBC Flagged by Analyzer 0 % (0-5); Neutrophil # 2.69 X10^3/uL (2.7-7.7); Neutrophil % 68.6 % (47-70); POSITIVE MORPHOLOGY YES; Platelet Count 136 K/mm3 (150-450); RBC Distribution Width CV 14.1 % (11.6-14.6); RBC Distribution Width SD 45.6 fl (35.1-43.9); Red Blood Count 3.03 M/mm3 (4.6-6.2); White Blood Count 3.9 K/mm3 (4.4-11.0)
[2024-10-13] MEDS: 0.9% Normal Saline (1000mL) 1,000 ML 100 ML IV (06:38)
[2024-10-13 06:51] LABS: Bedside Glucose 92 mg/dL (74-106)
[2024-10-13 06:52] LABS: Anion Gap 11 (5-15); BUN 6 mg/dL (4-19); BUN/Creat Ratio 16.5 RATIO (10-20); Calcium,Total 7.8 mg/dL (7.6-11.0); Carbon Dioxide 17.2 mmol/L (21.0-32.0); Chloride 109 mmol/L (98-108); Creatinine, Serum 0.37 mg/dL (0.70-1.20); EST Glomerular Filtration Rate 118 (>60); Estimated Creatinine Clearance 74.34 ml/min (50-250); Glucose 89 mg/dL (70-99); Potassium 2.8 mmol/L (3.3-5.1); Sodium Level 137 mmol/L (133-145)
[2024-10-13 07:04] LABS: Differential Indicated SCAN CRITERIA MET
[2024-10-13 07:15] LABS: Bedside Glucose 88 mg/dL (74-106)
[2024-10-13 08:19] LABS: Atypical Lymphocyte 1+ %
--- NOTE | 2024-10-13 08:39 | PN.HOSP_ITS ---
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) Pneumonia, unspecified organism (10/09/24) Other disorders of lung (10/09/24) Ulcerative colitis, unspecified, without complications (10/09/24) Disorientation, unspecified (10/09/24) Altered mental status, unspecified (10/09/24) Abnormal findings on diagnostic imaging of skull and head, not elsewhere classified (10/09/24) Abnormal findings on diagnostic imaging of other abdominal regions, including retroperitoneum (10/09/24) Personal history of nicotine dependence (10/09/24) Objective Data Objective Data Vital Signs: Vital Signs Temp Pulse Resp BP Pulse Ox O2 Del Method O2 Flow Rate 97.6 F L 83 18 107/66 94 Nasal Cannula 4 10/13/24 08:27 10/13/24 08:27 10/13/24 08:27 10/13/24 08:27 10/13/24 08:27 10/13/24 08:27 10/13/24 08:27 FiO2 2 10/08/24 20:00 Oxygen Flow Rate (L/min) 4 Oxygen Delivery Method Nasal Cannula Weight: 140 lb 14.006 oz Body Mass Index (BMI) 19.7 Intake & Output: Intake and Output for Last 24 Hours 10/11/24 10/12/24 10/13/24 23:59 23:59 23:59 Intake Total 2485 / 2485 2815 / 2815 1105 / 1105 Output Total 1050 / 1050 700 / 700 Balance 1435 / 1435 2815 / 2415 405 / 405 Lab / Micro Data 10/13/24 06:12 10/13/24 06:12 Labs: Laboratory Results - last 24 hr 10/12/24 05:05: WBC 4.6, RBC 2.87 L, Hgb 8.5 L, Hct 25.6 L, MCV 89.2, MCH 29.6, MCHC 33.2 D, RDW Std Deviation 45.9 H, RDW Coeff of Janice 14.2, Plt Count , MPV 10.6, Immature Gran % (Auto) 2.600 H, Neut % (Auto) 66.0, Lymph % (Auto) 24.6, [place] % (Auto) 5.3, Eos % (Auto) 1.1, Baso % (Auto) 0.4, Absolute Neuts (auto) 3.0, Absolute Lymphs (auto) 1.12, Nucleated RBC % 0, Platelet Estimate SLT 10/12/24 06:27: POC Glucose 90 10/12/24 07:53: POC Glucose 88 10/12/24 12:56: POC Glucose 108 H 10/12/24 17:59: POC Glucose 102 10/12/24 21:43: POC Glucose 85 10/13/24 06:12: WBC 3.9 L, RBC 3.03 L, Hgb 8.8 L, Hct 27.1 L, MCV 89.4, MCH 29.0, MCHC 32.5, RDW Std Deviation 45.6 H, RDW Coeff of Janice 14.1, Plt Count 136 L, MPV 9.0, Immature Gran % (Auto) 2.300 H, Neut % (Auto) 68.6, Lymph % (Auto) 21.2, [place] % (Auto) 5.6, Eos % (Auto) 1.8, Baso % (Auto) 0.5, Absolute Neuts (auto) 2.7, Absolute Lymphs (auto) 0.83, Nucleated RBC % 0, Atypical Lymphocytes 1+, Sodium 137, Potassium 2.8 L, Chloride 109 H, Carbon Dioxide 17.2 L, Anion Gap 11, BUN 6, Creatinine 0.37 L, Estim Creat Clear Calc 74.34, Est GFR (MDRD) Non-Af 118, BUN/Creatinine Ratio 16.5, Glucose 89, Calcium 7.8 10/13/24 06:20: POC Glucose 92 Micro: Microbiology 10/10/24 13:30 Sputum, Expectorated/Coughed Acid Fast Bacilli Smear - Final 10/10/24 13:30 Sputum, Expectorated/Coughed Acid Fast Bacilli Culture - Preliminary 10/10/24 13:30 Sputum, Expectorated/Coughed Gram Stain - Final 10/10/24 13:30 Sputum, Expectorated/Coughed Respiratory Culture - Preliminary Staphylococcus aureus 10/09/24 12:35 Nasal Secretion MRSA (PCR) - Final 10/09/24 12:35 Mucosa - Nose SARS-CoV-2, Influenza & RSV (PCR) - Final 10/09/24 05:17 Urine, Clean Catch Legionella Antigen - Final 10/09/24 05:17 Urine, Clean Catch Streptococcus pneumoniae Antigen (M - Final 10/08/24 22:45 Stool Stool Occult Blood (ARNALDO) - Final Physical Exam Narrative Seen and examined Patient has history ulcerative colitis and he had colectomy and stoma on the right lower quadrant. No fever. Has cough predominantly dry. Physical exam General: Alert, Oriented x3, Cooperative. BMI 19.7 kg/m? HEENT: Atraumatic, PERRLA, EOMI, Normocephalic Oral: Oral mucosa dry. No Gingival or Mucosal Lesions/ Ulcerations Neck: Supple, No JVD, Negative Carotid Bruits Chest wall/Lungs: Right upper chest Mediport. Air entry diminished in bilateral lung bases. Bilateral expiratory wheezing Cardiovascular: Regular rate, Regular Rhythm, Normal S1, Normal S2, No M/G/R Abdomen: Liquid fecal matter on ileostomy bag bowel Sounds Present, Soft, Non Tender, Non-Distended : No dysuria. No renal angle tenderness. No suprapubic tenderness. Extremities: No edema, Capillary Refill Less than 3 Seconds Skin: No rashes, No breakdown Musculoskeletal: No Tenderness to Palpation of Joints or Extremities Neurological: Cranial nerves II-XII grossly intact, DTR 2+/4. No acute focal neurological deficit. Psych/Mental Status: Flat affect. Assessment & Plan Assessment/Plan (1) Altered mental status: QUALIFIERS: Altered mental status type: disorientation Qualified Code(s): R41.0 - Disorientation, unspecified (2) Cavitary pneumonia: (3) History of alcohol abuse: (4) History of tobacco abuse: PLAN: Plan 74-year-old gentleman was admitted with acute onset of confusion at [facility], shortness of breath/dyspnea and not feeling well. No hemoptysis fever night sweats. No direct contact with TB 1. Acute metabolic encephalopathy: ? Neurology was consulted for possible stroke MRI is negative for stroke, EEG ordered for today ? B12 thiamine folic acid and thiamine IV as recommended by neurologist. Treatment of possible underlying infection. ? In the meantime continue with airborne precautions and sputum samples to be able to definitively rule out TB ? Continue with broad-spectrum antibiotics currently on Unasyn ? Initial respiratory cultures are showing Staph aureus and the MRSA screen was negative. The sputum smear is negative and he can be removed from precautions 2. Multiple cavitary lesion: CT scan of the abdomen showed right middle lobe cavitary lesion, subsequent chest CT shows multiple cavitary lesions and groundglass opacities. Epidemiologically, TB seems unlikely as patient had QuantiFERON gold test in June was normal and he has not been any where where TB is endemic ? 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 Normal RV size and systolic function Sputum culture shows Staph aureus 2+. MSSA 3 ulcerative colitis status post colon resection/GERD ? He was transferred to [place] for colon resection. Documentary details of surgery unavailable ? Continue with Bentyl and mesalamine ? Continue PPI 4 4. Hyperlipidemia Continue with statin 5. Hypokalemia: Potassium replacement ordered DVT: Lovenox Charges/Coding Visit Charges Inpatient E&M: 66170 Subs Hosp L3
--- NOTE | 2024-10-13 08:50 | PN.CC_ITS ---
Assessment & Plan Assessment/Plan (1) Abnormal abdominal CT scan: PLAN: Plan RECOMMENDATIONS: 1. Antimicrobials per ID recommendations. 2. Proceed with bronchoscopy with BAL. 3. Continue scheduled bronchodilators. 4. Encourage incentive spirometer use and mobilize patient as tolerated. IMPRESSIONS: 1. Abnormal CT scan of the abdomen Incidental note was made of a right middle lobe cavitary lesion on CT imaging of the abdomen and pelvis. Subsequent dedicated chest CT revealed multiple cavitary lesions and ground glass opacities. Ultimately, my suspicion for tuberculosis is very low. I am more concerned with the findings noted on CT are likely the consequence of aspiration. The patient sarah clinically stable on antimicrobials. Will plan tentatively to proceed with bronchoscopy with BAL later this morning. 2. History of ulcerative colitis/GERD/neuropathy/hyperlipidemia/diabetes mellitus Complicates care, management, recovery and prognosis. Continue supportive measures as noted above. This note was generated with [employer] dictation software. It may contain incorrect words, spelling, and punctuation that were not noted in checking the note before signing. Subjective Subjective The patient was seen and examined at the bedside this morning. Events from the last 24 hours have been reviewed. The patient is currently afebrile, hemodynamically stable and maintaining appropriate oxygen saturations on 4 L/min via nasal cannula. The patient has no specific complaints this morning. He is in agreement to proceed with bronchoscopy with BAL this morning. The patient is no longer in airborne precautions. Objective Data Objective Data The patient's most recent lab work, culture data and imaging studies have all been personally reviewed. Preliminary sputum culture dated October 10 is demonstrating growth of Staphylococcus aureus. Vital Signs: Vital Signs Temp Pulse Resp BP Pulse Ox O2 Del Method O2 Flow Rate 97.6 F L 83 18 107/66 94 Nasal Cannula 4 10/13/24 08:27 10/13/24 08:27 10/13/24 08:27 10/13/24 08:27 10/13/24 08:27 10/13/24 08:27 10/13/24 08:27 FiO2 2 10/08/24 20:00 Oxygen Flow Rate (L/min) 4 Oxygen Delivery Method Nasal Cannula Weight: 140 lb 14.006 oz Body Mass Index (BMI) 19.7 Intake & Output: Intake and Output for Last 24 Hours 10/11/24 10/12/24 10/13/24 23:59 23:59 23:59 Intake Total 2485 / 2485 2815 / 2815 1105 / 1105 Output Total 1050 / 1050 700 / 700 Balance 1435 / 1435 2815 / 2415 405 / 405 Lab / Micro Data Attestation: I reviewed the patient's lab results. 10/13/24 06:12 10/13/24 06:12 Labs: Laboratory Results - last 24 hr 10/12/24 05:05: WBC 4.6, RBC 2.87 L, Hgb 8.5 L, Hct 25.6 L, MCV 89.2, MCH 29.6, MCHC 33.2 D, RDW Std Deviation 45.9 H, RDW Coeff of Janice 14.2, Plt Count , MPV 10.6, Immature Gran % (Auto) 2.600 H, Neut % (Auto) 66.0, Lymph % (Auto) 24.6, [place] % (Auto) 5.3, Eos % (Auto) 1.1, Baso % (Auto) 0.4, Absolute Neuts (auto) 3.0, Absolute Lymphs (auto) 1.12, Nucleated RBC % 0, Platelet Estimate SLT 10/12/24 06:27: POC Glucose 90 10/12/24 07:53: POC Glucose 88 10/12/24 12:56: POC Glucose 108 H 10/12/24 17:59: POC Glucose 102 10/12/24 21:43: POC Glucose 85 10/13/24 06:12: WBC 3.9 L, RBC 3.03 L, Hgb 8.8 L, Hct 27.1 L, MCV 89.4, MCH 29.0, MCHC 32.5, RDW Std Deviation 45.6 H, RDW Coeff of Janice 14.1, Plt Count 136 L, MPV 9.0, Immature Gran % (Auto) 2.300 H, Neut % (Auto) 68.6, Lymph % (Auto) 21.2, [place] % (Auto) 5.6, Eos % (Auto) 1.8, Baso % (Auto) 0.5, Absolute Neuts (auto) 2.7, Absolute Lymphs (auto) 0.83, Nucleated RBC % 0, Atypical Lymphocytes 1+, Sodium 137, Potassium 2.8 L, Chloride 109 H, Carbon Dioxide 17.2 L, Anion Gap 11, BUN 6, Creatinine 0.37 L, Estim Creat Clear Calc 74.34, Est GFR (MDRD) Non-Af 118, BUN/Creatinine Ratio 16.5, Glucose 89, Calcium 7.8 10/13/24 06:20: POC Glucose 92 Micro: Microbiology 10/10/24 13:30 Sputum, Expectorated/Coughed Acid Fast Bacilli Smear - Final 10/10/24 13:30 Sputum, Expectorated/Coughed Acid Fast Bacilli Culture - Preliminary 10/10/24 13:30 Sputum, Expectorated/Coughed Gram Stain - Final 10/10/24 13:30 Sputum, Expectorated/Coughed Respiratory Culture - Preliminary Staphylococcus aureus 10/09/24 12:35 Nasal Secretion MRSA (PCR) - Final 10/09/24 12:35 Mucosa - Nose SARS-CoV-2, Influenza & RSV (PCR) - Final 10/09/24 05:17 Urine, Clean Catch Legionella Antigen - Final 10/09/24 05:17 Urine, Clean Catch Streptococcus pneumoniae Antigen (M - Final 10/08/24 22:45 Stool Stool Occult Blood (ARNALDO) - Final Radiography Diagnostic Testing: Radiology Impression Carotid Duplex 10/08/24 20:18 Interpretation Summary Mild (<50%) stenosis right extracranial internal carotid. Mild (<50%) stenosis left extracranial internal carotid. Patent and antegrade vertebrals bilaterally. Ordering Physician: Khris Landrum Referring Physician: N/A Performed By: Baron Taylor RVT Echocardiogram 10/08/24 20:18 Interpretation Summary Normal LV size. Left ventricular systolic function is normal. The left ventricular ejection fraction is 65 %. Trisinus/trileaflet aortic valve. Ordering Physician: Khris Landrum Referring Physician: Giorgio Levin Performed By: Elena Johnson RDCS Chest CT 10/09/24 09:37 IMPRESSION: 1. Constellation of findings including multifocal thick-walled cavitary lesions (some are large measuring up to 5.1 cm and some are microcavitations), multifocal ground-glass, reticular and airspace disease. All these findings have a predilection for the upper lung zones. Differential considerations include post-primary pulmonary tuberculosis as well as other bacterial or atypical cavitary pneumonias such as aspergillosis. Cavitary metastatic disease or septic emboli are also differential considerations, however, less likely based on the size and distribution. Acute and subacute disease features are present. 2. Moderate emphysematous disease. Reading Location: [facility] Brain MRI 10/09/24 20:18 IMPRESSION: 1. No evidence of acute ischemia. 2. Chronic area of encephalomalacia in the right frontal lobe. Reading Location: [facility] Physical Exam Const alert and no apparent distress Constitutional Narrative: Sitting upright in bed. General Appearance: cooperative HEENT normocephalic and head/scalp atraumatic Eyes EOMs intact bilaterally, conjunctivae normal and no scleral icterus Neck supple General: trachea midline Chest inspection of chest normal Resp normal respiratory effort Auscultation: diminished lung sounds Cardio regular rate and regular rhythm GI normal to inspection, nondistended, normoactive bowel sounds Extremity no clubbing, cyanosis or edema Skin no rashes or lesions noted Neuro CN's II-XII intact bilaterally, moves all extremities and no focal motor deficits Psych Mood & Affect: flat affect Charges/Coding Visit Charges Inpatient E&M: 67077 Subs Hosp L2
--- NOTE | 2024-10-13 09:30 | CASEMGMT ---
MAUREEN sent updates to [facility] [employer] via [employer]. 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
[2024-10-13 09:56] LABS: Magnesium 1.6 mg/dL (1.5-2.2); Phosphorus 2.9 mg/dL (2.7-4.5)
[2024-10-13 10:00] LABS: Potassium 3.5 mmol/L (3.3-5.1)
--- NOTE | 2024-10-13 10:10 | PRE.ANES_ITS ---
ASA Classification* ASA Classification ASA Classification: 3 Assessment & Plan Anesthesia* Anesthesia Assessment Anesthesia Assessment: Discussed sedation and/or anesthesia options, risks, benefits, and alternatives with patient/parents/legal guardian/POA. Questions invited. The patient/parents/legal guardian/POA seems to understand and agrees to proceed with anesthesia plan. Reviewed the physical assessment, medical history, allergy history and patient home medications list prior to surgery/procedure/anesthetic and documented any changes. Performed airway and anesthesia risk assessments. Anesthesia Type Anesthesia Type: MAC Anesthesia Focused Assessment* Temperature: 97.6 F Pulse Rate: 83 Blood Pressure: 107/66 Respiratory Rate: 18 Pulse Ox: 94 Oxygen Flow Rate (L/min): 4 Fraction of Inspired Oxygen (FIO2): 2 Airway Assessment Mouth opens: >3 cm Mallampati Score: II Focused Labs Anesthesia Preop lab: CBC WBC 3.9 K/mm3 (4.4-11.0) L 10/13/24 06:12 10/13/24 RBC 3.03 M/mm3 (4.6-6.2) L 10/13/24 06:12 10/13/24 Hgb 8.8 g/dL (13.0-16.5) L 10/13/24 06:12 10/13/24 Hct 27.1 % (40-54) L 10/13/24 06:12 10/13/24 Plt Count 136 K/mm3 (150-450) L 10/13/24 06:12 10/13/24 CHEMISTRY Potassium 3.5 mmol/L (3.3-5.1) 10/13/24 09:44 10/13/24 Sodium 137 mmol/L (133-145) 10/13/24 06:12 10/13/24 Magnesium 1.6 mg/dL (1.5-2.2) 10/13/24 06:12 10/13/24 Phosphorus 2.9 mg/dL (2.7-4.5) 10/13/24 06:12 10/13/24 BUN 6 mg/dL (4-19) 10/13/24 06:12 10/13/24 Creatinine 0.37 mg/dL (0.70-1.20) L 10/13/24 06:12 Glucose 89 mg/dL (70-99) 10/13/24 06:12 10/13/24 POC Glucose 92 mg/dL (74-106) 10/13/24 06:20 10/13/24 TSH 1.900 uIU/mL (0.300-4.200) 10/08/24 17:15 09/14 01/07 COAG PT 15.1 SECONDS (11.7-14.9) H 08/21/24 09:28 01/07 Pre-Assessment Diagnosis/Proposed Procedure Planned Operative Procedure(s): Bronchoscopy Anesthesia History Anesthesia History - tariff supervisor: Anesthesia History - tariff supervisor Hx Hospitalization Any Problems With Anesthesia No 10/13/24 08:37 Cholinesterase deficiency No 10/13/24 08:37 You/Your Family Experience No 10/13/24 08:37 fever (hyperthermia) with Relationship Recent Exposure to Contagious No 10/13/24 08:37 Disease Does patient have nerve No 10/13/24 08:37 stimulator Patient instructed to have No 10/13/24 08:37 device shut off --Does patient have Pacemaker No 10/13/24 08:30 or ICD? When Was Last Pacemaker Check QUESTION #4 FULL TEXT: You/Your Family Experience fever (hyperthermia) with Anesthesia Last Oral Intake Last Oral intake: Last Oral Intake NPO since 00:00 10/13/24 08:30 Meds taken in AM with sips of No 10/13/24 08:30 water? Meds patient instructed to take am of surgery PONV PONV - tariff supervisor: PONV - tariff supervisor Female HX of Motion Sickness HX of N/V After Surgery Non-Smoker Duration of Surgery greater than 60 minutes Number of Risk Factors PONV Score Height & Weight Height & Weight: Anesthesia: Height & Weight Height 5 ft 10.87 in 10/13/24 09:45 Weight: 63.9 kg 10/13/24 09:45 Body Mass Index (BMI) 19.7 10/13/24 08:30 Respiratory Assessment Respiratory Assessment - tariff supervisor: Respiratory Tract Infection Hx - tariff supervisor Hx Respiratory Tract Infection Yes 10/13/24 08:37 STOP Sleep Apnea STOP Sleep Apnea - tariff supervisor: STOP Sleep Apnea - tariff supervisor Hx Hypertension No 10/13/24 08:30 Hx Sleep Apnea No 10/08/24 22:20 CPAP BIPAP Do you snore loudly (louder No 10/08/24 22:20 than talking or can be heard Do you often feel tired/ No 10/08/24 22:20 fatigued/ sleepy during daytime? Has anyone observed you stop No 10/08/24 22:20 breathing during sleep? STOP Results Negative 10/08/24 22:20 QUESTION #5 FULL TEXT : Do you snore loudly (louder than talking or can be heard through closed doors)? Tobacco Use History Tobacco Use History - tariff supervisor: Tobacco Use History - tariff supervisor Tobacco Use Smoking Status Unknown if ever smoked 10/13/24 08:30 Hx Tobacco Use Yes: chewing tobacco 10/08/24 22:20 Years Smoking Packs Smoked per Day Smoking Cessation Date was Yes - quit smoking within 15 10/08/24 22:20 within the last 15 years years Hx Smoking Cessation Date 06/10/20 10/08/24 22:20 Hx Smoking Cessation No 10/13/24 08:30 Counseling Hematologic Medial History Hematologic Hx - tariff supervisor: Hematologic Medical Hx - manager oncology Hx of Blood Transfusion No 10/08/24 22:20 Hx of Transfusion in last 3 No 10/08/24 22:20 Months Date of Last Transfusion (if within last 3 months) Ever experience any problems No 10/08/24 22:20 with transfusion(s)? Specify any problems Hx of Preganancy in last 3 N/A 10/08/24 22:20 Months Nurse Filling Out Transfusion [email or web address] 10/08/24 22:20 & Questions: Date: 10/08/24 10/08/24 22:20 Time: 23:23 10/08/24 22:20 Patient unable to answer at this time (ie. confused, unrespo /Reproduction History /Reproductive History - tariff supervisor: /Reproductive Hx- tariff supervisor Hx Now No 10/13/24 08:37 Gestational Age (in weeks): EDC: Hx Hx Para Hx Section SAB Active Medications Active Medications: Current Medications Generic Name Dose Route Start Last Admin Trade Name Freq PRN Reason Stop Dose Admin Acetaminophen 650 mg 10/08/24 22:30 Acetaminophen 325 Mg Tablet PO Q6H PRN fever or pain Acetylcysteine 800 mg 10/13/24 08:45 Acetylcysteine 800 Mg/4 Ml Vial.Neb. INHALATION Q6H.RT KORINA Albuterol/Ipratropium 3 ml 10/13/24 08:45 Ipratropium/Albuterol Sulfate 3 Ml Ampul.Neb INHALATION Q6HWA.RT [facility] Atorvastatin Calcium 10 mg 10/08/24 22:30 10/12/24 21:56 Atorvastatin Calcium 10 Mg Tablet PO 10 mg QHS KORINA Administration Collagenase 1 applic 10/09/24 10:00 10/13/24 05:49 Collagenase 30gm Tube TOPICAL 1 applic DAILY KORINA Administration Protocol Dicyclomine HCl 10 mg 10/09/24 07:00 10/13/24 05:49 Dicyclomine 10 Mg Capsule PO 10 mg TIDAC KORINA Administration Enoxaparin Sodium 40 mg 10/10/24 17:00 10/12/24 11:06 Enoxaparin 40 Mg/0.4 Ml Syringe SC Not Given DAILY [facility] Guaifenesin 1 tablet 10/13/24 10:00 Guaifenesin/D-Methorphan Tab.Sr.12h PO BID [facility] Hydrocortisone Acetate 25 mg 10/08/24 22:30 10/12/24 21:56 Hydrocortisone 25 Mg Suppository RC Not Given Q12 KORINA Piperacillin Sod/Tazobactam 50 mls @ 12.5 mls/hr 10/08/24 22:00 10/13/24 09:49 Sod 3.375 gm/ Sodium Chloride IV Infused Q8 KORINA Infusion Thiamine HCl 500 mg/ Sodium 55 mls @ 200 mls/hr 10/10/24 14:00 10/13/24 06:01 Chloride IV 10/18/24 14:17 Infused TID [facility] Infusion Potassium Chloride 10 meq in 100 mls @ 100 mls/hr 10/13/24 09:45 IV BOLUS 10/13/24 13:44 Q1H KORINA Mesalamine 400 mg 10/09/24 22:00 10/12/24 21:56 Mesalamine 400 Mg Capsule.Dr PO 400 mg BID KORINA Administration Multivitamins 1 tablet 10/09/24 08:00 10/12/24 10:40 Multivitamins,Therapeutic Tablet PO 1 tablet DAILYCM KORINA Administration Pantoprazole Sodium 40 mg 10/09/24 10:00 10/12/24 10:40 Pantoprazole Sodium 40 Mg Tablet PO 40 mg DAILY KORINA Administration Potassium Chloride 40 meq 10/13/24 09:00 Potassium Chloride Oral Tablet 20 Meq PO 10/13/24 15:01 Q3H KORINA Pregabalin 150 mg 10/09/24 22:30 10/12/24 21:55 Pregabalin 75 Mg Capsule PO 150 mg BID KORINA Administration Sodium Chloride 5 ml 10/09/24 14:15 10/11/24 01:25 Sodium Chloride 3% 500 Ml Iv.Soln. INHALATION 10/13/24 14:16 5 ml Q8H.RT KORINA Administration PFSH Medical History Weakness Colitis Hypertension Irritable bowel Restless legs Diabetes GERD (gastroesophageal reflux disease) GI bleed Ulcerative colitis Alcohol abuse Arthritis Former smoker High cholesterol Diverticulitis Home Medications ?Medication ?Instructions ?Recorded ?Last Taken ?Type albuterol sulfate 90 mcg/actuation 1 inh inhalation Q6 H PRN shortness 02/26/21 Unknown Rx aerosol inhaler of breath or wheezing #8.5 g isis pregabalin 150 mg capsule 150 mg PO BID PAIN 06/19/24 07/27/24 History simvastatin 20 mg tablet 20 mg PO QHS HYPERLIPIDEMIA 06/19/24 07/26/24 History dicyclomine 10 mg capsule 10 mg PO TIDAC COLITIS #60 c aps 07/23/24 07/27/24 Rx mesalamine 500 mg capsule,extended 500 mg PO BID pain/ inflammation 30 07/23/24 07/27/24 Rx release (Pentasa) days #60 caps pantoprazole 40 mg tablet,delayed 40 mg PO DAILY GERD #30 tabs 07/23/24 07/27/24 Rx release acetaminophen 325 mg tablet 650 mg PO Q6H PRN fever or pain 10/08/24 Unknown History (Aminofen) collagenase clostridium histo. 250 1 applic topical [facility] 10/08/24 Unknown History unit/gram topical ointment (Santyl) dextromethorphan-guaifenesin 10 10 ml PO Q8H PRN cough 10/08/24 Unknown History mg-100 mg/5 mL oral syrup (Antitussive DM) hydrocortisone acetate 25 mg 25 mg TX Q12H MUCOUS MEMB JOHNNY 10/08/24 Unknown History rectal suppository ipratropium 0.5 mg-albuterol 3 mg 3 ml inhalation Q8H PRN SOB 10/08/24 Unknown History (2.5 mg base)/3 mL nebulization soln multivitamin (Daily Multi-Vitamin 1 tab PO DAILY SUPPL EMENT 10/08/24 Unknown History tablet) Allergy/AdvReac Type Severity Reaction Status Date / Time ibuprofen AdvReac Upset Verified 10/08/24 16:25 Stomach Family History Mother COPD (chronic obstructive pulmonary disease) Father Myocardial infarction Surgical History History of bowel resection S/P colonoscopy S/P endoscopy Social History household members: spouse Smoking Status: Unknown if ever smoked alcohol intake: current alcohol intake frequency: 3 or more drinks per day Alcohol type: beer details: Patient states that he drinks a 12 pack/day of 12 ounce beers substance use type: does not use Review of Systems (Anesthesia) ROS Narrative System reviewed and no additional complaints, except as documented.
[2024-10-13] MEDS: Lidocaine Jelly 2% 20 ML Syringe (URO-JET) 1 APPLIC (11:00)
[2024-10-13] MEDS: Lidocaine 2% (5ml sdv) 5 ML VIAL.MPF (11:05)
--- NOTE | 2024-10-13 11:10 | OP.BRONCH_ITS ---
Patient Name: Vidal Hunter Procedure Date: 10/13/2024 10:39 AM Date of : 1950 Age: 74 Procedure: Bronchoscopy Indications: Abnormal CT scan of chest Providers: Ji Troncoso MD Medicines: See the Anesthesia note for documentation of the administered medications Complications: No immediate complications Procedure: Pre-Anesthesia Assessment: - A History and Physical has been performed. Patient meds and allergies have been reviewed. The risks and benefits of the procedure and the sedation options and risks were discussed with the patient. All questions were answered and informed consent was obtained. Patient identification and proposed procedure were verified prior to the procedure by the physician and the nurse in the procedure room. Mental Status Examination: alert and oriented. Airway Examination: normal oropharyngeal airway. Respiratory Examination: poor air movement. CV Examination: normal. ASA Grade Assessment: II - A patient with mild systemic disease. After reviewing the risks and benefits, the patient was deemed in satisfactory condition to undergo the procedure. The anesthesia plan was to use monitored anesthesia care (MAC). Immediately prior to administration of medications, the patient was re-assessed for adequacy to receive sedatives. The heart rate, respiratory rate, oxygen saturations, blood pressure, adequacy of pulmonary ventilation, and response to care were monitored throughout the procedure. The physical status of the patient was re-assessed after the procedure. After I obtained informed consent, the scope was passed under direct vision. Throughout the procedure, the patient's blood pressure, pulse, and oxygen saturations were monitored continuously. The bronchoscope was introduced through the mouth and advanced to the tracheobronchial tree. The procedure was accomplished without difficulty. The patient tolerated the procedure well. Findings: Bilateral Lung Abnormalities: Tenacious, thick secretions were found throughout the tracheobronchial tree. They were not obstructing the airway. The bronchoscope was advanced until wedged at the desired location for bronchoalveolar lavage. BAL was performed in the right middle lobe of the lung and sent for cell count, bacterial culture, viral smears & culture, and fungal & AFB analysis and cytology and bacterial, AFB and fungal analysis. 60 mL of fluid were instilled. 25 mL were returned. The return was mucopurulent. Impression: - Abnormal CT scan of chest - Tenacious, thick secretions were found throughout the tracheobronchial tree. - Bronchoalveolar lavage was performed. Recommendation: - Await BAL results. Procedure Code(s): --- Professional --- 79514, Bronchoscopy, rigid or flexible, including fluoroscopic guidance, when performed; with bronchial alveolar lavage Diagnosis Code(s): --- Professional --- R93.89, Abnormal findings on diagnostic imaging of other specified body structures R09.89, Other specified symptoms and signs involving the circulatory and respiratory systems CPT copyright 2021 [employer]. All rights reserved. The codes documented in this report are preliminary and upon orthopedic coder review may be revised to meet current compliance requirements. DO Ji Hardy MD 10/13/2024 11:10:11 AM This report has been signed electronically. Number of Addenda: 0 Note Initiated On: 10/13/2024 10:39 AM
--- NOTE | 2024-10-13 11:23 | PCM.POST.ANE ---
Anesthesia: Postop Eval I Current Vital Signs Temperature: 97 F Pulse Rate: 74 Blood Pressure: 85/55 (100 mcg phenylephrine given) Respiratory Rate: 14 Pulse Ox: 100 Oxygen Delivery Method: Simple Mask Assessment Airway patent: Yes Spontaneous unlabored respirations: Yes Mental status: Awake nausea: No Vomiting: No Anesthesia Complication: No Fluid Hydration Crystalloid volume administer (ml): 10 Total IV fluid infused: 10 Progress Note Anesthesia document: Postop Eval 1 completed: Yes
[2024-10-13 11:35] LABS: Cytology, Body Fluid / CSF SEE PATHOLOGY REPORT; Pathologist Comment/Body Fluid May follow
[2024-10-13] MEDS: Lactated Ringers 1,000 ML 999 ML IV (11:37)
--- NOTE | 2024-10-13 11:41 | SUR.PHASEI ---
patient ring back on ringer
--- NOTE | 2024-10-13 12:22 | POSTOPAN2_ITS ---
Anesthesia Postop Eval I Sum Postop Eval Completion status Anesthesia document: Postop Eval 1 completed: Yes Anesthesia Postop Eval I Summary Anesthesia Postop Eval I Summary: Anesthesia Postop Eval I: Assessment Summary Airway patent Yes 10/13/24 11:23 PASTE UP ARTIST.HBARR Spontaneous unlabored Yes 10/13/24 11:23 PASTE UP ARTIST.HBARR respirations Mental status Awake 10/13/24 11:23 PASTE UP ARTIST.HBARR nausea No 10/13/24 11:23 PASTE UP ARTIST.HBARR Vomiting No 10/13/24 11:23 PASTE UP ARTIST.HBARR Anesthesia Postop Eval I: Fluid Summary Crystalloid volume administer 10 10/13/24 11:23 PASTE UP ARTIST.HBARR (ml) Colloids volume administered ( ml) Blood Product volume administered (ml) Total IV fluid infused 10 10/13/24 11:23 PASTE UP ARTIST.HBARR Anesthesia Postop Eval I: Summary Notes Anesthesia Complication No 10/13/24 11:23 PASTE UP ARTIST.HBARR Anesthesia Complication Comment: Post-operative progress note Anesthesia: Postop Eval II Evaluation Mental status: Awake Pain Level: 0 nausea: No Vomiting: No
--- NOTE | 2024-10-13 12:22 | PCM.POSTANE2 ---
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 [employer].HBARR Spontaneous unlabored Yes 10/13/24 11:23 SALES REPRESENTATIVE [employer].HBARR respirations Mental status Awake 10/13/24 11:23 SALES REPRESENTATIVE [employer].HBARR nausea No 10/13/24 11:23 SALES REPRESENTATIVE [employer].HBARR Vomiting No 10/13/24 11:23 SALES REPRESENTATIVE [employer].HBARR Anesthesia Postop Eval I: Fluid Summary Crystalloid volume administer 10 10/13/24 11:23 SALES REPRESENTATIVE [employer].HBARR (ml) Colloids volume administered ( ml) Blood Product volume administered (ml) Total IV fluid infused 10 10/13/24 11:23 SALES REPRESENTATIVE [employer].HBARR Anesthesia Postop Eval I: Summary Notes Anesthesia Complication No 10/13/24 11:23 SALES REPRESENTATIVE [employer].HBARR Anesthesia Complication Comment: Post-operative progress note Anesthesia: Postop Eval II Evaluation Mental status: Awake Pain Level: 0 nausea: No Vomiting: No
[2024-10-13 12:54] LABS: Color/Body Fluid SLIGHTLY PINK; Source- Body Fluid BRONCHIAL LAVAGE
[2024-10-13 12:55] LABS: Appearance/Body Fluid TURBID
--- NOTE | 2024-10-13 13:32 | PCM.PN.ID ---
ID ID: Route of nutrition/ use of supplements: [] Nutritional Intake: [] IV Site: [] Orantes Catheter: [] Patient alert and responsive eating lunch. Underwent diagnostic bronchoscopy earlier today. Currently on 4 L nasal cannula. No fevers. Currently on Zosyn empirically. Microbiology data reviewed Alert responsive does not appear toxic. Mentation is poor lungs are coarse breath sounds heart exam S1-S2 abdomen soft nontender. Assessment & Plan Assessment/Plan (1) Cavitary pneumonia: PLAN: Chest film and CT scan of the chest reviewed, patient with chronic lung disease along with cavitary disease at this point be reasonable to continue empiric Zosyn and closely follow the bronchoscopy specimens, BAL.
[2024-10-13 13:42] LABS: Red Cell Count/Body Fluid 60 /mm3; White Blood Count/Body Fluid 3345 /mm3
[2024-10-13 14:02] LABS: Lymphocytes 3 %; Monocytes 6 %; Neutrophil (Segs) 91 %
[2024-10-13 14:03] LABS: Body Fluid QC Type(s) BF1Q
[2024-10-13] MEDS: guaiFENesin/D-Methorphan TAB.SR.12H 1 TABLET PO ×2 (14:25→21:56)
[2024-10-13] MEDS: Potassium Chloride Oral Tablet 20 MEQ 40 MEQ PO ×3 (14:25→16:34)
[2024-10-13] MEDS: Lactobacillis Acidophilus 1 CAP PO ×3 (14:26→21:56)
[2024-10-13] MEDS: Pregabalin 75 MG Capsule 150 MG PO ×2 (14:29→22:01)
[2024-10-13] MEDS: Multivitamins,Therapeutic Tablet 1 TABLET PO (14:30)
[2024-10-13] MEDS: Pantoprazole Sodium 40 MG Tablet PO (14:30)
[2024-10-13] MEDS: MESALAMINE 400 MG CAPSULE.DR PO ×2 (14:30→21:57)
[2024-10-13 17:01] LABS: Bedside Glucose 110 mg/dL (74-106)
[2024-10-13] MEDS: Acetaminophen 325 MG Tablet 650 MG PO (18:51)
[2024-10-13] MEDS: Acetylcysteine 800 MG/4 ML VIAL.NEB. INHALATION (20:43)
[2024-10-13] MEDS: Ipratropium/Albuterol Sulfate 3 ML AMPUL.NEB INHALATION (20:43)
[2024-10-13] MEDS: Atorvastatin Calcium 10 MG Tablet PO (21:57)
[2024-10-13] MEDS: 0.9% Normal Saline (1000mL) 1,000 ML 999 ML IV (22:40)
[2024-10-13 23:47] LABS: Lactic Acid 2.2 mmol/L (0.0-2.0)
[2024-10-13 23:50] LABS: Bedside Glucose 104 mg/dL (74-106)
[2024-10-14] VITALS (30 sets, daily range): BP systolic 87–126; BP diastolic 56–92; PULSE 93–124; RESP 18–42; TEMP 36.6–37.3; O2SAT 77–99; BMI 19.7
[2024-10-14 03:04] LABS: Reflex Lactate? Y
[2024-10-14] MEDS: Piperacil/Tazobactam 3.375 GM in 0.9% Normal Saline (50mL MB+) 50 ML IV ×3 (06:07→22:09)
[2024-10-14] MEDS: Thiamine Hydrochloride 500 MG in 0.9% Normal Saline (50mL Bag) 50 ML 200 MG IV ×3 (06:07→22:08)
[2024-10-14 06:49] LABS: Absolute Lymphocyte Count 1.28 X10^3/uL (0.83-4.51); Absolute Neutrophil Count 5.1 X10^3/uL (2.0-7.7); Basophil# 0.02 X10^3/uL; Basophil% 0.3 % (0-1); Eosinophil# 0.07 X10^3/uL; Hematocrit 31.7 % (40-54); Hemoglobin 10.1 g/dL (13.0-16.5); Lymphocyte # 1.28 X10^3/ul (0.83-4.51); Lymphocyte % 18.8 % (19-41); Mean Corp Hgb Conc 31.9 g/dL (32-36); Mean Corpuscular Hgb 28.7 pg (27.0-32.0); Mean Corpuscular Volume 90.1 fL (80-94); Mean Platelet Vol. 9.4 fl (6.2-12.0); Monocyte% 4.4 % (0-10); NRBC Flagged by Analyzer 0 % (0-5); Neutrophil # 5.07 X10^3/uL (2.7-7.7); Neutrophil % 74.3 % (47-70); POSITIVE COUNT YES; Platelet Count 167 K/mm3 (150-450); RBC Distribution Width CV 14.4 % (11.6-14.6); RBC Distribution Width SD 47.3 fl (35.1-43.9); Red Blood Count 3.52 M/mm3 (4.6-6.2); White Blood Count 6.8 K/mm3 (4.4-11.0)
[2024-10-14] MEDS: Ipratropium/Albuterol Sulfate 3 ML AMPUL.NEB INHALATION ×3 (07:05→23:38)
[2024-10-14] MEDS: Acetylcysteine 800 MG/4 ML VIAL.NEB. INHALATION ×2 (07:05→12:49)
[2024-10-14 07:11] LABS: Lactic Acid 2.1 mmol/L (0.0-2.0)
[2024-10-14 07:13] LABS: Anion Gap 10 (5-15); BUN 12 mg/dL (4-19); BUN/Creat Ratio 27.1 RATIO (10-20); Calcium,Total 8.4 mg/dL (7.6-11.0); Carbon Dioxide 19.9 mmol/L (21.0-32.0); Chloride 108 mmol/L (98-108); Creatinine, Serum 0.44 mg/dL (0.70-1.20); EST Glomerular Filtration Rate 112 (>60); Estimated Creatinine Clearance 74.33 ml/min (50-250); Glucose 73 mg/dL (70-99); Potassium 4.1 mmol/L (3.3-5.1); Sodium Level 138 mmol/L (133-145)
[2024-10-14 07:32] LABS: Differential Indicated SCAN CRITERIA MET
[2024-10-14 07:33] LABS: Differential Comment SCANNED; Platelet Estimate ADEQUATE (ADEQ); Polychromasia RARE
--- NOTE | 2024-10-14 07:35 | PN.HOSP_ITS ---
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) Pneumonia, unspecified organism (10/09/24) Other disorders of lung (10/09/24) Ulcerative colitis, unspecified, without complications (10/09/24) Disorientation, unspecified (10/09/24) Altered mental status, unspecified (10/09/24) Abnormal findings on diagnostic imaging of skull and head, not elsewhere classified (10/09/24) Abnormal findings on diagnostic imaging of other abdominal regions, including retroperitoneum (10/09/24) Personal history of nicotine dependence (10/09/24) Objective Data Objective Data Vital Signs: Vital Signs Temp Pulse Resp BP Pulse Ox O2 Del Method O2 Flow Rate 98.5 F 109 H 32 H 101/59 L 98 Bi-pap 30 10/14/24 06:00 10/14/24 07:35 10/14/24 07:35 10/14/24 06:00 10/14/24 07:35 10/14/24 06:00 10/14/24 06:00 FiO2 30 10/14/24 07:35 Oxygen Flow Rate (L/min) 30 Oxygen Delivery Method Bi-pap Weight: 140 lb 14.006 oz Body Mass Index (BMI) 19.7 Intake & Output: Intake and Output for Last 24 Hours 10/12/24 10/13/24 10/14/24 23:59 23:59 23:59 Intake Total 2815 / 2815 3948.33 / 3948.33 50 / 50 Output Total 1974 1050 / 1050 Balance 2815 / 2415 197333 / 1972.33 -1000 / -1000 Lab / Micro Data 10/14/24 06:25 10/14/24 06:25 Labs: Laboratory Results - last 24 hr 10/13/24 06:12: Atypical Lymphocytes 1+, Phosphorus 2.9, Magnesium 1.6 10/13/24 09:44: Potassium 3.5 10/13/24 16:38: POC Glucose 110 H 10/13/24 22:55: Lactic Acid 2.2 H* 10/13/24 23:27: POC Glucose 104 10/13/24 : Fluid Source BRONCHIAL LAVAGE, Fluid Color SLIGHTLY PINK, Fluid Appearance TURBID, Fluid WBC 3345, Fluid RBC 60, Fluid Tot Cell Count TNP, Fluid Neutrophils 91, Fluid Lymphocytes 3, Fluid Monocytes 6, Fl Pathologist Comment May follow, Fluid Comment 2 Not Reportable 10/14/24 06:25: WBC 6.8, RBC 3.52 L, Hgb 10.1 L, Hct 31.7 L, MCV 90.1, MCH 28.7, MCHC 31.9 L, RDW Std Deviation 47.3 H, RDW Coeff of Janice 14.4, Plt Count 167, MPV 9.4, Immature Gran % (Auto) 1.200 H, Neut % (Auto) 74.3 H, Lymph % (Auto) 18.8 L , Marshall % (Auto) 4.4, Eos % (Auto) 1.0, Baso % (Auto) 0.3, Absolute Neuts (auto) 5.1, Absolute Lymphs (auto) 1.28, Nucleated RBC % 0, Differential Comment SCANNED, Platelet Estimate ADEQUATE, Polychromasia RARE, Sodium 138, Potassium 4.1, Chloride 108, Carbon Dioxide 19.9 L, Anion Gap 10, BUN 12, Creatinine 0.44 L, Estim Creat Clear Calc 74.33, Est GFR (MDRD) Non-Af 112, BUN/Creatinine Ratio 27.1 H, Glucose 73, Calcium 8.4 10/14/24 06:37: Lactic Acid 2.1 H Micro: Microbiology 10/13/24 Unknown Bronchial Lavage - Right Middle Lobe Gram Stain - Final 10/10/24 13:30 Sputum, Expectorated/Coughed Gram Stain - Final 10/10/24 13:30 Sputum, Expectorated/Coughed Respiratory Culture - Final Staphylococcus aureus 10/10/24 13:30 Sputum, Expectorated/Coughed Acid Fast Bacilli Smear - Final 10/10/24 13:30 Sputum, Expectorated/Coughed Acid Fast Bacilli Culture - Preliminary 10/09/24 12:35 Nasal Secretion MRSA (PCR) - Final 10/09/24 12:35 Mucosa - Nose SARS-CoV-2, Influenza & RSV (PCR) - Final 10/09/24 05:17 Urine, Clean Catch Legionella Antigen - Final 10/09/24 05:17 Urine, Clean Catch Streptococcus pneumoniae Antigen (M - Final 10/08/24 22:45 Stool Stool Occult Blood (ARNALDO) - Final Physical Exam Narrative Seen and examined Last night patient was hypotensive and blood pressure systolic 80s. 1 L bolus was given. Blood pressure in the morning 101/59. Patient also short of breath with increased accessory muscle use therefore was put on BiPAP. Patient has history ulcerative colitis and he had colectomy and stoma on the right lower quadrant. No fever. Has cough predominantly dry. Physical exam General: Alert, Oriented x3, Cooperative. BMI 19.7 kg/m? HEENT: Atraumatic, PERRLA, EOMI, Normocephalic Oral: Oral mucosa dry. No Gingival or Mucosal Lesions/ Ulcerations Neck: Supple, No JVD, Negative Carotid Bruits Chest wall/Lungs: Right upper chest Mediport. Air entry diminished in bilateral lung bases. Bilateral expiratory wheezing Cardiovascular: Regular rate, Regular Rhythm, Normal S1, Normal S2, No M/G/R Abdomen: Liquid fecal matter about 250 mL on ileostomy bag bowel Sounds Present, Soft, Non Tender, Non-Distended : No dysuria. No renal angle tenderness. No suprapubic tenderness. Extremities: No edema, Capillary Refill Less than 3 Seconds Skin: No rashes, No breakdown Musculoskeletal: No Tenderness to Palpation of Joints or Extremities Neurological: Cranial nerves II-XII grossly intact, DTR 2+/4. No acute focal neurological deficit. Psych/Mental Status: Flat affect. Assessment & Plan Assessment/Plan (1) Altered mental status: QUALIFIERS: Altered mental status type: disorientation Qualified Code(s): R41.0 - Disorientation, unspecified (2) Cavitary pneumonia: (3) History of alcohol abuse: (4) History of tobacco abuse: PLAN: Plan 74-year-old gentleman was admitted with acute onset of confusion at [facility], shortness of breath/dyspnea and not feeling well. No hemoptysis fever night sweats. No direct contact with TB 1. Acute metabolic encephalopathy: ? Neurology was consulted for possible stroke MRI is negative for stroke, EEG ordered for today ? B12 thiamine folic acid and thiamine IV as recommended by neurologist. Treatment of possible underlying infection. ? In the meantime continue with airborne precautions and sputum samples to be able to definitively rule out TB ? Continue with broad-spectrum antibiotics currently on Unasyn ? Initial respiratory cultures are showing Staph aureus and the MRSA screen was negative. The sputum smear is negative and he can be removed from precautions 10/14: Metabolic encephalopathy resolved Hypotension with increased respiratory distress, acute hypoxic respiratory failure: Patient was hypotensive and required BiPAP on 10/13 night. Blood pressure has recovered I think it was mainly due to hypovolemia from increased ileostomy loss. IV fluid replacement ordered. Imodium ordered. 2. Multiple cavitary lesion: CT scan of the abdomen showed right middle lobe cavitary lesion, subsequent chest CT shows multiple cavitary lesions and groundglass opacities. Epidemiologically, TB seems unlikely as patient had QuantiFERON gold test in June was normal and he has not been any where where TB is endemic ? Rn New Graduate and ID were concerned Aspergillus antibodies are pending Echo October 09 shows EF 65%. Normal RV size and systolic function Sputum culture shows Staph aureus 2+. MSSA 10/14: Pulmonary consult reviewed. BAL cultures are pending. On empiric antibiotic. Patient has prolonged history of smoking therefore clinical suspicion of COPD. CT chest shows mild to moderate emphysematous disease. 3. Ulcerative colitis status post colon resection/GERD ? He was transferred to [place] for colon resection. Documentary details of surgery unavailable ? Continue with Bentyl and mesalamine ? Continue PPI 4 4. Hyperlipidemia Continue with statin 5. Hypokalemia: Potassium replacement ordered DVT: Lovenox Charges/Coding Visit Charges Inpatient E&M: 00770 Subs Hosp L2
--- NOTE | 2024-10-14 08:30 | RAD_ITS ---
EXAM: XR Chest, 1 View CLINICAL INDICATION: SOB, ON BIPAP TECHNIQUE: Frontal view of the chest. COMPARISON: XR Chest dated 10/08/2024 FINDINGS: LUNGS AND PLEURAL SPACES: Pulmonary congestion and edema. Pneumonia cannot be excluded. No pneumothorax. HEART: Unremarkable. No cardiomegaly. MEDIASTINUM: Unremarkable. Normal mediastinal contour. BONES/JOINTS: Unremarkable. No acute fracture. RAD/Chest 1 View (Portable) IMPRESSION: Pulmonary congestion and edema. Pneumonia cannot be excluded. Reading [facility]
[2024-10-14] MEDS: Pregabalin 75 MG Capsule 150 MG PO ×2 (08:35→22:10)
[2024-10-14] MEDS: Lactated Ringers 1,000 ML 500 ML IV (08:39)
[2024-10-14] MEDS: MESALAMINE 400 MG CAPSULE.DR PO ×2 (08:40→22:13)
[2024-10-14] MEDS: Pantoprazole Sodium 40 MG Tablet PO (08:40)
[2024-10-14] MEDS: Multivitamins,Therapeutic Tablet 1 TABLET PO (08:40)
[2024-10-14] MEDS: guaiFENesin/D-Methorphan TAB.SR.12H 1 TABLET PO ×2 (08:40→22:13)
[2024-10-14] MEDS: Dicyclomine 10 MG Capsule PO ×3 (08:40→17:51)
[2024-10-14] MEDS: Lactobacillis Acidophilus 1 CAP PO ×4 (08:40→22:12)
--- NOTE | 2024-10-14 10:06 | PCM.PN.INT ---
Assessment & Plan Assessment/Plan (1) Abnormal abdominal CT scan: PLAN: Plan RECOMMENDATIONS: 1. Wean supplemental oxygen to maintain saturations at or above 90%. 2. Antimicrobials per ID recommendations. 3. Continue scheduled bronchodilators. 4. Encourage incentive spirometer use and mobilize patient as tolerated. IMPRESSIONS: 1. Abnormal CT scan of the abdomen Incidental note was made of a right middle lobe cavitary lesion on CT imaging of the abdomen and pelvis. Subsequent dedicated chest CT revealed multiple cavitary lesions and ground glass opacities. Ultimately, my suspicion for tuberculosis is very low. I am more concerned with the findings noted on CT are likely the consequence of aspiration. The patient underwent successful bronchoscopy with BAL on October 13, with cultures pending. He will be continued on antimicrobial therapy, per the discretion of infectious diseases. 2. History of ulcerative colitis/GERD/neuropathy/hyperlipidemia/diabetes mellitus Complicates care, management, recovery and prognosis. Continue supportive measures as noted above. This note was generated with [employer] dictation software. It may contain incorrect words, spelling, and punctuation that were not noted in checking the note before signing. Subjective Subjective The patient was seen and examined at the bedside this morning. Events from the last 24 hours have been reviewed. The patient is currently afebrile, hemodynamically stable and maintaining appropriate oxygen saturations on 8 L/min via nasal cannula. The patient tolerated bronchoscopy with BAL yesterday. White blood cell count is normal. Objective Data Objective Data The patient's most recent lab work, culture data and imaging studies have all been personally reviewed. Preliminary sputum culture dated October 10 is demonstrating growth of Staphylococcus aureus. Vital Signs: Vital Signs Temp Pulse Resp BP Pulse Ox O2 Del Method O2 Flow Rate 97.8 F 109 H 31 H 92/64 94 High Flow 10 10/14/24 09:00 10/14/24 09:00 10/14/24 09:00 10/14/24 09:00 10/14/24 09:00 10/14/24 09:00 10/14/24 09:00 FiO2 30 10/14/24 07:35 Oxygen Flow Rate (L/min) 10 Oxygen Delivery Method High Flow Weight: 140 lb 14.006 oz Body Mass Index (BMI) 19.7 Intake & Output: Intake and Output for Last 24 Hours 10/12/24 10/13/24 10/14/24 23:59 23:59 23:59 Intake Total 281 / 2815 3948.33 / 3948.33 105 / 105 Output Total 1974 1750 / 1750 Balance 2815 / 2415 1972. / 33 -1645 / -1645 Lab / Micro Data Attestation: I reviewed the patient's lab results. 10/14/24 06:25 10/14/24 06:25 Labs: Laboratory Results - last 24 hr 10/13/24 16:38: POC Glucose 110 H 10/13/24 22:55: Lactic Acid 2.2 H* 10/13/24 23:27: POC Glucose 104 10/13/24 : Fluid Source BRONCHIAL LAVAGE, Fluid Color SLIGHTLY PINK, Fluid Appearance TURBID, Fluid WBC 3345, Fluid RBC 60, Fluid Tot Cell Count TNP, Fluid Neutrophils 91, Fluid Lymphocytes 3, Fluid Monocytes 6, Fl Pathologist Comment May follow, Fluid Comment 2 Not Reportable 10/14/24 06:25: WBC 6.8, RBC 3.52 L, Hgb 10.1 L, Hct 31.7 L, MCV 90.1, MCH 28.7, MCHC 31.9 L, RDW Std Deviation 47.3 H, RDW Coeff of Janice 14.4, Plt Count 167, MPV 9.4, Immature Gran % (Auto) 1.200 H, Neut % (Auto) 74.3 H, Lymph % (Auto) 18.8 L, [place] % (Auto) 4.4, Eos % (Auto) 1.0, Baso % (Auto) 0.3, Absolute Neuts (auto) 5.1, Absolute Lymphs (auto) 1.28, Nucleated RBC % 0, Differential Comment SCANNED, Platelet Estimate ADEQUATE, Polychromasia RARE, Sodium 138, Potassium 4.1, Chloride 108, Carbon Dioxide 19.9 L, Anion Gap 10, BUN 12, Creatinine 0.44 L, Estim Creat Clear Calc 74.33, Est GFR (MDRD) Non-Af 112, BUN/Creatinine Ratio 27.1 H, Glucose 73, Calcium 8.4 10/14/24 06:37: Lactic Acid 2.1 H Micro: Microbiology 10/13/24 Unknown Bronchial Lavage - Right Middle Lobe Gram Stain - Final 10/10/24 13:30 Sputum, Expectorated/Coughed Gram Stain - Final 10/10/24 13:30 Sputum, Expectorated/Coughed Respiratory Culture - Final Staphylococcus aureus 10/10/24 13:30 Sputum, Expectorated/Coughed Acid Fast Bacilli Smear - Final 10/10/24 13:30 Sputum, Expectorated/Coughed Acid Fast Bacilli Culture - Preliminary 10/09/24 12:35 Nasal Secretion MRSA (PCR) - Final 10/09/24 12:35 Mucosa - Nose SARS-CoV-2, Influenza & RSV (PCR) - Final 10/09/24 05:17 Urine, Clean Catch Legionella Antigen - Final 10/09/24 05:17 Urine, Clean Catch Streptococcus pneumoniae Antigen (M - Final 10/08/24 22:45 Stool Stool Occult Blood (ARNALDO) - Final Radiography Diagnostic Testing: Radiology Impression Chest X-Ray 10/14/24 08:30 IMPRESSION: Pulmonary congestion and edema. Pneumonia cannot be excluded. Reading Location: [facility] Physical Exam Const alert and no apparent distress General Appearance: cooperative HEENT normocephalic and head/scalp atraumatic Eyes EOMs intact bilaterally, conjunctivae normal and no scleral icterus Neck supple General: trachea midline Chest inspection of chest normal Resp normal respiratory effort Auscultation: rales and diminished lung sounds Cardio regular rate and regular rhythm GI normal to inspection, nondistended, normoactive bowel sounds Extremity no clubbing, cyanosis or edema Skin no rashes or lesions noted Neuro CN's II-XII intact bilaterally, moves all extremities and no focal motor deficits Psych Mood & Affect: flat affect Charges/Coding Visit Charges Inpatient E&M: 96695 Subs Hosp L2
[2024-10-14] MEDS: Enoxaparin 40 MG/0.4 ML Syringe SC (10:50)
[2024-10-14] MEDS: Hydrocortisone 25 MG Suppository RC ×2 (10:50→22:12)
[2024-10-14] MEDS: Collagenase 30gm Tube 1 APPLIC TOPICAL (10:51)
--- NOTE | 2024-10-14 13:51 | WOUNDNOTE ---
wound photo: sacrum
[2024-10-14] MEDS: Loperamide 2 MG Capsule PO ×2 (14:10→22:13)
[2024-10-14 16:09] LABS: Aspirgillus flavus Negative (Neg:<1:1); Aspirgillus fumigatus Negative (Neg:<1:1); Aspirgillus niger Negative (Neg:<1:1)
[2024-10-14 16:09] LABS: Vitamin B1, Thiamine 133.2 nmol/L (66.5-200.0)
[2024-10-14] MEDS: Atorvastatin Calcium 10 MG Tablet PO (22:13)
[2024-10-15] VITALS (15 sets, daily range): BP systolic 88–110; BP diastolic 55–80; PULSE 63–113; RESP 12–27; TEMP 36.5–36.6; O2SAT 90–100; BMI 19.7
[2024-10-15] MEDS: Loperamide 2 MG Capsule PO ×3 (06:13→20:26)
[2024-10-15] MEDS: Piperacil/Tazobactam 3.375 GM in 0.9% Normal Saline (50mL MB+) 50 ML IV (06:13)
[2024-10-15] MEDS: Thiamine Hydrochloride 500 MG in 0.9% Normal Saline (50mL Bag) 50 ML 200 MG IV ×3 (06:13→20:42)
[2024-10-15] MEDS: Dicyclomine 10 MG Capsule PO ×3 (06:13→17:51)
[2024-10-15] MEDS: Acetylcysteine 800 MG/4 ML VIAL.NEB. INHALATION ×2 (06:42→19:11)
[2024-10-15] MEDS: Ipratropium/Albuterol Sulfate 3 ML AMPUL.NEB INHALATION ×2 (06:42→19:11)
[2024-10-15 07:00] LABS: Absolute Lymphocyte Count 0.84 X10^3/uL (0.83-4.51); Absolute Neutrophil Count 3.3 X10^3/uL (2.0-7.7); Basophil# 0.02 X10^3/uL; Basophil% 0.4 % (0-1); Eosinophil# 0.05 X10^3/uL; Eosinophils% 1.1 % (0-5); Hematocrit 25.3 % (40-54); Hemoglobin 8.2 g/dL (13.0-16.5); Lymphocyte # 0.84 X10^3/ul (0.83-4.51); Lymphocyte % 18.9 % (19-41); Mean Corp Hgb Conc 32.4 g/dL (32-36); Mean Corpuscular Hgb 28.8 pg (27.0-32.0); Mean Corpuscular Volume 88.8 fL (80-94); Mean Platelet Vol. 9.4 fl (6.2-12.0); Monocyte# 0.18 X10^3/uL; NRBC Flagged by Analyzer 0 % (0-5); Neutrophil # 3.29 X10^3/uL (2.7-7.7); POSITIVE MORPHOLOGY YES; Platelet Count 157 K/mm3 (150-450); RBC Distribution Width CV 14.5 % (11.6-14.6); RBC Distribution Width SD 46.5 fl (35.1-43.9); Red Blood Count 2.85 M/mm3 (4.6-6.2); White Blood Count 4.5 K/mm3 (4.4-11.0)
[2024-10-15 07:27] LABS: Anion Gap 9 (5-15); BUN 8 mg/dL (4-19); BUN/Creat Ratio 19.1 RATIO (10-20); Carbon Dioxide 21.3 mmol/L (21.0-32.0); Chloride 106 mmol/L (98-108); Creatinine, Serum 0.41 mg/dL (0.70-1.20); EST Glomerular Filtration Rate 114 (>60); Estimated Creatinine Clearance 74.33 ml/min (50-250); Glucose 70 mg/dL (70-99); Sodium Level 136 mmol/L (133-145)
[2024-10-15 07:33] LABS: Differential Indicated SCAN CRITERIA MET
[2024-10-15 07:56] LABS: Pro- Brain NATRIURETIC PEPTIDE 638 pg/mL (<=900); Procalcitonin 0.27 ng/mL (<=0.10)
[2024-10-15 08:00] LABS: Bedside Glucose 58 mg/dL (74-106)
[2024-10-15 08:00] LABS: Bedside Glucose 86 mg/dL (74-106)
--- NOTE | 2024-10-15 08:01 | PCM.PN.HOSP ---
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) Pneumonia, unspecified organism (10/09/24) Other disorders of lung (10/09/24) Ulcerative colitis, unspecified, without complications (10/09/24) Disorientation, unspecified (10/09/24) Altered mental status, unspecified (10/09/24) Abnormal findings on diagnostic imaging of skull and head, not elsewhere classified (10/09/24) Abnormal findings on diagnostic imaging of other abdominal regions, including retroperitoneum (10/09/24) Personal history of nicotine dependence (10/09/24) Objective Data Objective Data Vital Signs: Vital Signs Temp Pulse Resp BP Pulse Ox O2 Del Method O2 Flow Rate 97.8 F 90 26 H 88/62 L 99 High Flow 8 10/15/24 07:48 10/15/24 07:48 10/15/24 07:48 10/15/24 07:48 10/15/24 07:48 10/15/24 06:44 10/15/24 06:44 FiO2 30 10/15/24 06:00 Oxygen Flow Rate (L/min) 8 Oxygen Delivery Method High Flow Weight: 140 lb 14.006 oz Body Mass Index (BMI) 19.7 Intake & Output: Intake and Output for Last 24 Hours 10/13/24 10/14/24 10/15/24 23:59 23:59 23:59 Intake Total 3948.33 / 3948.33 1500 / 1500 160 / 160 Output Total 1974 3200 / 3550 1100 / 1100 Balance 1972.33 / 1972.33 -1700 / -2050 -940 / -940 Lab / Micro Data 10/15/24 06:35 10/15/24 06:35 Labs: Laboratory Results - last 24 hr 10/10/24 05:41: Aspergillus flavus Ab Negative, Aspergill fumigatus Ab Negative, Aspergillus niger Ab Negative 10/10/24 09:55: Whole Bld Vitamin B1 133.2 10/13/24 : Fluid Source BRONCHIAL LAVAGE, Fluid Color SLIGHTLY PINK, Fluid Appearance TURBID, Fluid WBC 3345, Fluid RBC 60, Fluid Tot Cell Count TNP, Fluid Neutrophils 91, Fluid Lymphocytes 3, Fluid Monocytes 6, Fl Pathologist Comment May follow 10/15/24 06:33: POC Glucose 58 L 10/15/24 06:35: WBC 4.5, RBC 2.85 L, Hgb 8.2 L, Hct 25.3 L, MCV 88.8, MCH 28.8, MCHC 32.4, RDW Std Deviation 46.5 H, RDW Coeff of Janice 14.5, Plt Count 157, MPV 9.4, Immature Gran % (Auto) 1.600 H, Neut % (Auto) 74.0 H, Lymph % (Auto) 18.9 L, [place] % (Auto) 4.0, Eos % (Auto) 1.1, Baso % (Auto) 0.4, Absolute Neuts (auto) 3.3, Absolute Lymphs (auto) 0.84, Nucleated RBC % 0, Sodium 136, Potassium 3.0 L, Chloride 106, Carbon Dioxide 21.3, Anion Gap 9, BUN 8, Creatinine 0.41 L, Estim Creat Clear Calc 74.33, Est GFR (MDRD) Non-Af 114, BUN/Creatinine Ratio 19.1, Glucose 70, Calcium 8.0, NT pro BNP II 638, Procalcitonin 0.27 H 10/15/24 07:41: POC Glucose 86 Micro: Microbiology 10/13/24 Unknown Bronchial Lavage - Right Middle Lobe Gram Stain - Final 10/13/24 Unknown Bronchial Lavage - Right Middle Lobe Respiratory Culture - Preliminary Staphylococcus species 10/10/24 13:30 Sputum, Expectorated/Coughed Gram Stain - Final 10/10/24 13:30 Sputum, Expectorated/Coughed Respiratory Culture - Final Staphylococcus aureus 10/10/24 13:30 Sputum, Expectorated/Coughed Acid Fast Bacilli Smear - Final 10/10/24 13:30 Sputum, Expectorated/Coughed Acid Fast Bacilli Culture - Preliminary 10/09/24 12:35 Nasal Secretion MRSA (PCR) - Final 10/09/24 12:35 Mucosa - Nose SARS-CoV-2, Influenza & RSV (PCR) - Final 10/09/24 05:17 Urine, Clean Catch Legionella Antigen - Final 10/09/24 05:17 Urine, Clean Catch Streptococcus pneumoniae Antigen (M - Final 10/08/24 22:45 Stool Stool Occult Blood (ARNALDO) - Final Radiography Diagnostic Testing: Radiology Impression Chest X-Ray 10/14/24 08:30 IMPRESSION: Pulmonary congestion and edema. Pneumonia cannot be excluded. Reading Location: [facility] Physical Exam Narrative Seen and examined Patient blood pressure in the low 100s. Clinically looks dry. Chest x-ray shows fluid congestion from yesterday Patient on BiPAP Patient has history ulcerative colitis and he had colectomy and stoma on the right lower quadrant. No fever. Physical exam General: Alert, Oriented x3, Cooperative. BMI 19.7 kg/m? HEENT: Atraumatic, PERRLA, EOMI, Normocephalic Oral: Oral mucosa dry. No Gingival or Mucosal Lesions/ Ulcerations Neck: Supple, No JVD, Negative Carotid Bruits Chest wall/Lungs: Right upper chest Mediport. Air entry diminished in bilateral lung bases. Bilateral expiratory wheezing Cardiovascular: Regular rate, Regular Rhythm, Normal S1, Normal S2, No M/G/R Abdomen: Liquid fecal matter about 150 ml on ileostomy bag bowel Sounds Present, Soft, Non Tender, Non-Distended : No dysuria. No renal angle tenderness. No suprapubic tenderness. Extremities: No edema, Capillary Refill Less than 3 Seconds Skin: No rashes, No breakdown Musculoskeletal: No Tenderness to Palpation of Joints or Extremities Neurological: Cranial nerves II-XII grossly intact, DTR 2+/4. No acute focal neurological deficit. Psych/Mental Status: Flat affect. Assessment & Plan Assessment/Plan (1) Altered mental status: QUALIFIERS: Altered mental status type: disorientation Qualified Code(s): R41.0 - Disorientation, unspecified (2) Cavitary pneumonia: (3) History of alcohol abuse: (4) History of tobacco abuse: PLAN: Plan 74-year-old gentleman was admitted with [facility], shortness of breath/dyspnea and not feeling well. No hemoptysis fever night sweats. No direct contact with TB 1. Acute metabolic encephalopathy: ? Neurology was consulted for possible stroke MRI is negative for stroke, EEG ordered for today ? B12 thiamine folic acid and thiamine IV as recommended by neurologist. Treatment of possible underlying infection. ? In the meantime continue with airborne precautions and sputum samples to be able to definitively rule out TB ? Continue with broad-spectrum antibiotics currently on Unasyn ? Initial respiratory cultures are showing Staph aureus and the MRSA screen was negative. The sputum smear is negative and he can be removed from precautions 4/1: Metabolic encephalopathy resolved Hypotension with increased respiratory distress, acute hypoxic respiratory failure: Patient was hypotensive and required BiPAP on 10/13 night. Blood pressure has recovered I think it was mainly due to hypovolemia from increased ileostomy loss. IV fluid replacement ordered. Imodium ordered. 10/15: BP on lower side 88/62. IV fluid Ringer lactate 1 L bolus ordered over 2 hours. Imodium has already been ordered. Hypokalemia. Magnesium and phosphorus on low normal. Potassium, magnesium and phosphorus replacements ordered. 2. Multiple cavitary lesion: CT scan of the abdomen showed right middle lobe cavitary lesion, subsequent chest CT shows multiple cavitary lesions and groundglass opacities. Epidemiologically, TB seems unlikely as patient had QuantiFERON gold test in June was normal and he has not been any where where TB is endemic ? [employer] and ID were concerned Aspergillus antibodies are pending Echo October 09 shows EF 65%. Normal RV size and systolic function Sputum culture shows Staph aureus 2+. MSSA 10/14: Pulmonary consult reviewed. BAL cultures are pending. On empiric antibiotic. Patient has prolonged history of smoking therefore clinical suspicion of COPD. CT chest shows mild to moderate emphysematous disease. 10/15: ID follow-up appreciated. Recommended ertapenem to cover MSSA and other pathogens including anaerobes for total of 4 weeks. 3. Ulcerative colitis status post colon resection/GERD ? He was transferred to [place] for colon resection. Documentary details of surgery unavailable ? Continue with Bentyl and mesalamine ? Continue PPI 4 4. Hyperlipidemia Continue with statin 5. Hypokalemia: Potassium replacement ordered DVT: Lovenox Charges/Coding Visit Charges Inpatient E&M: 27918 Subs Hosp L2
[2024-10-15] MEDS: Collagenase 30gm Tube 1 APPLIC TOPICAL (08:26)
--- NOTE | 2024-10-15 09:00 | PN.CC_ITS ---
Assessment & Plan Assessment/Plan (1) Abnormal abdominal CT scan: PLAN: Plan RECOMMENDATIONS: 1. Wean supplemental oxygen to maintain saturations at or above 90%. 2. Antimicrobials per ID recommendations. 3. Continue scheduled bronchodilators and steroids. 4. Encourage incentive spirometer use and mobilize patient as tolerated. IMPRESSIONS: 1. Abnormal CT scan of the abdomen Incidental note was made of a right middle lobe cavitary lesion on CT imaging of the abdomen and pelvis. Subsequent dedicated chest CT revealed multiple cavitary lesions and ground glass opacities. Suspicion for underlying tuberculosis is very low. Subsequent sputum culture and BAL from bronchoscopy are demonstrating growth of Staphylococcus aureus. Recommend continuing antimicrobials per ID recommendations. Supplemental oxygen will be weaned as tolerated. The patient will be maintained on scheduled bronchodilators and steroids. Encourage incentive spirometer use and mobilize patient as tolerated. 2. History of ulcerative colitis/GERD/neuropathy/hyperlipidemia/diabetes mellitus Complicates care, management, recovery and prognosis. Continue supportive measures as noted above. This note was generated with [employer] dictation software. It may contain incorrect words, spelling, and punctuation that were not noted in checking the note before signing. Subjective Subjective The patient was seen and examined at the bedside this morning. Events from the last 24 hours have been reviewed. The patient is currently afebrile, hemodynamically stable and maintaining appropriate oxygen saturations on 8 L/min via nasal cannula. The patient is currently documented to be overall net +5 L for the hospitalization. White blood cell count remains normal. Creatinine is within normal limits. Objective Data Objective Data The patient's most recent lab work, culture data and imaging studies have all been personally reviewed. Preliminary sputum culture dated October 10 is demonstrating growth of Staphylococcus aureus. Vital Signs: Vital Signs Temp Pulse Resp BP Pulse Ox O2 Del Method O2 Flow Rate 97.8 F 90 26 H 88/62 L 99 High Flow 8 10/15/24 07:48 10/15/24 07:48 10/15/24 07:48 10/15/24 07:48 10/15/24 07:48 10/15/24 08:26 10/15/24 08:26 FiO2 30 10/15/24 06:00 Oxygen Flow Rate (L/min) 8 Oxygen Delivery Method High Flow Weight: 140 lb 14.006 oz Body Mass Index (BMI) 19.7 Intake & Output: Intake and Output for Last 24 Hours 10/13/24 10/14/24 10/15/24 23:59 23:59 23:59 Intake Total 3948.33 / 3948.33 1500 / 1500 160 / 160 Output Total 1974 3200 / 3550 1100 / 1100 Balance 33 -1700 / -2050 -940 / -940 Lab / Micro Data Attestation: I reviewed the patient's lab results. 10/15/24 06:35 10/15/24 06:35 Labs: Laboratory Results - last 24 hr 10/10/24 05:41: Aspergillus flavus Ab Negative, Aspergill fumigatus Ab Negative, Aspergillus niger Ab Negative 10/10/24 09:55: Whole Bld Vitamin B1 133.2 10/13/24 : Fluid Source BRONCHIAL LAVAGE, Fluid Color SLIGHTLY PINK, Fluid Appearance TURBID, Fluid WBC 3345, Fluid RBC 60, Fluid Tot Cell Count TNP, Fluid Neutrophils 91, Fluid Lymphocytes 3, Fluid Monocytes 6, Fl Pathologist Comment May follow 10/15/24 06:33: POC Glucose 58 L 10/15/24 06:35: WBC 4.5, RBC 2.85 L, Hgb 8.2 L, Hct 25.3 L, MCV 88.8, MCH 28.8, MCHC 32.4, RDW Std Deviation 46.5 H, RDW Coeff of Janice 14.5, Plt Count 157, MPV 9.4, Immature Gran % (Auto) 1.600 H, Neut % (Auto) 74.0 H, Lymph % (Auto) 18.9 L , [place] % (Auto) 4.0, Eos % (Auto) 1.1, Baso % (Auto) 0.4, Absolute Neuts (auto) 3.3, Absolute Lymphs (auto) 0.84, Nucleated RBC % 0, Sodium 136, Potassium 3.0 L , Chloride 106, Carbon Dioxide 21.3, Anion Gap 9, BUN 8, Creatinine 0.41 L, Estim Creat Clear Calc 74.33, Est GFR (MDRD) Non-Af 114, BUN/Creatinine Ratio 19.1, Glucose 70, Calcium 8.0, NT pro BNP II 638, Procalcitonin 0.27 H 10/15/24 07:41: POC Glucose 86 Micro: Microbiology 10/13/24 Unknown Bronchial Lavage - Right Middle Lobe Gram Stain - Final 10/13/24 Unknown Bronchial Lavage - Right Middle Lobe Respiratory Culture - Preliminary Staphylococcus aureus 10/10/24 13:30 Sputum, Expectorated/Coughed Gram Stain - Final 10/10/24 13:30 Sputum, Expectorated/Coughed Respiratory Culture - Final Staphylococcus aureus 10/10/24 13:30 Sputum, Expectorated/Coughed Acid Fast Bacilli Smear - Final 10/10/24 13:30 Sputum, Expectorated/Coughed Acid Fast Bacilli Culture - Preliminary 10/09/24 12:35 Nasal Secretion MRSA (PCR) - Final 10/09/24 12:35 Mucosa - Nose SARS-CoV-2, Influenza & RSV (PCR) - Final 10/09/24 05:17 Urine, Clean Catch Legionella Antigen - Final 10/09/24 05:17 Urine, Clean Catch Streptococcus pneumoniae Antigen (M - Final 10/08/24 22:45 Stool Stool Occult Blood (ARNALDO) - Final Radiography Diagnostic Testing: Radiology Impression Chest X-Ray 10/14/24 08:30 IMPRESSION: Pulmonary congestion and edema. Pneumonia cannot be excluded. Reading Location: [facility] Physical Exam Const alert and no apparent distress General Appearance: cooperative HEENT normocephalic and head/scalp atraumatic Eyes EOMs intact bilaterally, conjunctivae normal and no scleral icterus Neck supple General: trachea midline Chest inspection of chest normal Resp normal respiratory effort Auscultation: diminished lung sounds; Negative for rales, rhonchi or wheezes Cardio regular rate and regular rhythm GI normal to inspection, nondistended, normoactive bowel sounds Extremity no clubbing, cyanosis or edema Skin no rashes or lesions noted Neuro CN's II-XII intact bilaterally, moves all extremities and no focal motor deficits Psych Mood & Affect: flat affect Charges/Coding Visit Charges Inpatient E&M: 44471 Subs Hosp L2
[2024-10-15] MEDS: Multivitamins,Therapeutic Tablet 1 TABLET PO (10:12)
[2024-10-15] MEDS: Lactobacillis Acidophilus 1 CAP PO ×4 (10:13→20:25)
[2024-10-15] MEDS: MESALAMINE 400 MG CAPSULE.DR PO ×2 (10:13→20:25)
[2024-10-15] MEDS: Hydrocortisone 25 MG Suppository RC ×2 (10:13→20:26)
[2024-10-15] MEDS: guaiFENesin/D-Methorphan TAB.SR.12H 1 TABLET PO ×2 (10:14→20:24)
[2024-10-15] MEDS: Pantoprazole Sodium 40 MG Tablet PO (10:15)
[2024-10-15] MEDS: Enoxaparin 40 MG/0.4 ML Syringe SC (10:15)
[2024-10-15] MEDS: Pregabalin 75 MG Capsule 150 MG PO ×2 (10:23→20:24)
[2024-10-15] MEDS: Magnesium Chloride 64 MG Delay Rel.Tablet 128 MG PO ×2 (10:24→20:24)
[2024-10-15 10:27] LABS: Platelet Estimate ADEQUATE (ADEQ)
[2024-10-15 10:28] LABS: Anisocytosis 1+
[2024-10-15] MEDS: Na Biphos/Potassium Phosphate PACKET 1 PACKET PO ×3 (10:35→20:26)
[2024-10-15 11:34] LABS: Bedside Glucose 77 mg/dL (74-106)
[2024-10-15] MEDS: Lactated Ringers 1,000 ML 500 ML IV (11:41)
--- NOTE | 2024-10-15 13:07 | PCM.PN.ID ---
ID ID: Route of nutrition/ use of supplements: [] Nutritional Intake: [] IV Site: [] Orantes Catheter: [] Patient is alert and overall clinically stable. Resting on noninvasive ventilatory support. Apparently he is on 8 L nasal cannula when he is awake. Remains on Solu-Medrol 40 mg IV every 6 hours. Bronchoscopy specimen has MSSA isolated. Alert responsive lungs with some scattered rhonchi heart exam S1-S2 abdomen soft Assessment & Plan Assessment/Plan (1) Cavitary pneumonia: PLAN: Will treat with ertapenem to cover MSSA as well as other pathogen such as anaerobes. Most likely will need 4 weeks of parenteral antibiotic therapy and for ertapenem 1 g IV daily. Hopefully we can wean corticosteroids.
[2024-10-15] MEDS: Methylprednisolone Sod Succ 40 MG/ML VIAL IV ×3 (14:35→23:20)
[2024-10-15 16:30] LABS: Bedside Glucose 111 mg/dL (74-106)
[2024-10-15] MEDS: Atorvastatin Calcium 10 MG Tablet PO (20:27)
[2024-10-15 21:09] LABS: Bedside Glucose 154 mg/dL (74-106)
[2024-10-16] VITALS (14 sets, daily range): BP systolic 84–113; BP diastolic 53–74; PULSE 71–89; RESP 18–30; TEMP 36.1–36.6; O2SAT 85–100
[2024-10-16] MEDS: Ipratropium/Albuterol Sulfate 3 ML AMPUL.NEB INHALATION ×4 (01:13→23:15)
[2024-10-16] MEDS: Acetylcysteine 800 MG/4 ML VIAL.NEB. INHALATION ×4 (01:14→23:15)
--- NOTE | 2024-10-16 01:55 | CPS ---
Patient broke bipap mask when trying to take himself off the machine. Patient now off bipap, on 8L 97%
--- NOTE | 2024-10-16 02:33 | NURSING ---
placed on bipap at 2300. pt removed bipap at approx 0100 and broke the connection tubing. Rt aware of need for replacement equipment. pt now on 10LNC.
[2024-10-16] MEDS: Dicyclomine 10 MG Capsule PO ×3 (06:29→17:27)
[2024-10-16] MEDS: Thiamine Hydrochloride 500 MG in 0.9% Normal Saline (50mL Bag) 50 ML 200 MG IV ×3 (06:29→22:25)
[2024-10-16] MEDS: Loperamide 2 MG Capsule PO (06:29)
[2024-10-16] MEDS: Methylprednisolone Sod Succ 40 MG/ML VIAL IV ×3 (06:32→17:28)
[2024-10-16] MEDS: Na Biphos/Potassium Phosphate PACKET 1 PACKET PO ×3 (06:32→22:25)
[2024-10-16 06:44] LABS: Anion Gap 9 (5-15); BUN 13 mg/dL (4-19); BUN/Creat Ratio 31.4 RATIO (10-20); Calcium,Total 8.1 mg/dL (7.6-11.0); Carbon Dioxide 21.8 mmol/L (21.0-32.0); Chloride 105 mmol/L (98-108); Creatinine, Serum 0.41 mg/dL (0.70-1.20); EST Glomerular Filtration Rate 115 (>60); Estimated Creatinine Clearance 74.33 ml/min (50-250); Glucose 206 mg/dL (70-99); Magnesium 1.7 mg/dL (1.5-2.2); Phosphorus 3.5 mg/dL (2.7-4.5); Potassium 3.6 mmol/L (3.3-5.1); Sodium Level 136 mmol/L (133-145)
[2024-10-16] MEDS: guaiFENesin/D-Methorphan TAB.SR.12H 1 TABLET PO ×2 (08:34→22:25)
[2024-10-16] MEDS: Multivitamins,Therapeutic Tablet 1 TABLET PO (08:34)
[2024-10-16] MEDS: Magnesium Chloride 64 MG Delay Rel.Tablet 128 MG PO ×2 (08:34→22:25)
[2024-10-16] MEDS: Pantoprazole Sodium 40 MG Tablet PO (08:34)
[2024-10-16] MEDS: Lactobacillis Acidophilus 1 CAP PO ×4 (08:34→22:25)
[2024-10-16] MEDS: Enoxaparin 40 MG/0.4 ML Syringe SC (08:35)
[2024-10-16] MEDS: MESALAMINE 400 MG CAPSULE.DR PO ×2 (08:35→22:25)
[2024-10-16] MEDS: Ertapenem Sod 1 GM in 0.9% Normal Saline (50mL MB+) 50 ML IV (08:37)
[2024-10-16] MEDS: Pregabalin 75 MG Capsule 150 MG PO ×2 (08:37→22:25)
--- NOTE | 2024-10-16 09:30 | PCM.PN.INT ---
Assessment & Plan Assessment/Plan (1) Abnormal abdominal CT scan: PLAN: Plan RECOMMENDATIONS: 1. Wean supplemental oxygen to maintain saturations at or above 90%. 2. Antimicrobials per ID recommendations. 3. Continue scheduled bronchodilators and steroids. 4. Encourage incentive spirometer use and mobilize patient as tolerated. IMPRESSIONS: 1. Abnormal CT scan of the abdomen Incidental note was made of a right middle lobe cavitary lesion on CT imaging of the abdomen and pelvis. Subsequent dedicated chest CT revealed multiple cavitary lesions and ground glass opacities. Suspicion for underlying tuberculosis is very low. Subsequent sputum culture and BAL from bronchoscopy are demonstrating growth of MSSA and possible fungus. Recommend continuing antimicrobials per ID recommendations. Supplemental oxygen will be weaned as tolerated. The patient will be maintained on scheduled bronchodilators and steroids. Encourage incentive spirometer use and mobilize patient as tolerated. 2. History of ulcerative colitis/GERD/neuropathy/hyperlipidemia/diabetes mellitus Complicates care, management, recovery and prognosis. Continue supportive measures as noted above. This note was generated with [employer] dictation software. It may contain incorrect words, spelling, and punctuation that were not noted in checking the note before signing. Subjective Subjective The patient was seen and examined at the bedside this morning. Events from the last 24 hours have been reviewed. The patient is currently afebrile, hemodynamically stable and maintaining appropriate oxygen saturations on 5 L/min via nasal cannula. The patient has no specific complaints this morning. Creatinine remains within normal limits. Objective Data Objective Data The patient's most recent lab work, culture data and imaging studies have all been personally reviewed. Sputum culture is demonstrating growth of MSSA, along with possible fungus. Vital Signs: Vital Signs Temp Pulse Resp BP Pulse Ox O2 Del Method O2 Flow Rate 97.5 F L 79 18 113/58 L 96 Nasal Cannula 10 10/16/24 08:00 10/16/24 08:00 10/16/24 08:00 10/16/24 08:00 10/16/24 08:00 10/16/24 08:00 10/16/24 08:00 FiO2 30 10/16/24 00:09 Oxygen Flow Rate (L/min) 10 Oxygen Delivery Method Nasal Cannula Weight: 140 lb 14.006 oz Body Mass Index (BMI) 19.7 Intake & Output: Intake and Output for Last 24 Hours 10/14/24 10/15/24 10/16/24 23:59 23:59 23:59 Intake Total 1500 / 1500 1865 / 1865 110 / 110 Output Total 3200 / 3550 1100 / 1700 1250 / 1250 Balance -1700 / -2050 765 / 165 -1140 / -1140 Lab / Micro Data Attestation: I reviewed the patient's lab results. 10/15/24 06:35 10/16/24 05:48 Labs: Laboratory Results - last 24 hr 10/15/24 06:35: Platelet Estimate ADEQUATE, Anisocytosis 1+ 10/15/24 11:17: POC Glucose 77 10/15/24 16:05: POC Glucose 111 H 10/15/24 20:41: POC Glucose 154 H 10/16/24 05:48: Sodium 136, Potassium 3.6, Chloride 105, Carbon Dioxide 21.8, Anion Gap 9, BUN 13, Creatinine 0.41 L, Estim Creat Clear Calc 74.33, Est GFR (MDRD) Non-Af 115, BUN/Creatinine Ratio 31.4 H, Glucose 206 H, Calcium 8.1, Phosphorus 3.5, Magnesium 1.7 Micro: Microbiology 10/13/24 Unknown Bronchial Lavage - Right Middle Lobe Gram Stain - Final 10/13/24 Unknown Bronchial Lavage - Right Middle Lobe Respiratory Culture - Preliminary Staphylococcus aureus 10/10/24 13:30 Sputum, Expectorated/Coughed Gram Stain - Final 10/10/24 13:30 Sputum, Expectorated/Coughed Respiratory Culture - Final Staphylococcus aureus 10/10/24 13:30 Sputum, Expectorated/Coughed Acid Fast Bacilli Smear - Final 10/10/24 13:30 Sputum, Expectorated/Coughed Acid Fast Bacilli Culture - Preliminary 10/09/24 12:35 Nasal Secretion MRSA (PCR) - Final 10/09/24 12:35 Mucosa - Nose SARS-CoV-2, Influenza & RSV (PCR) - Final 10/09/24 05:17 Urine, Clean Catch Legionella Antigen - Final 10/09/24 05:17 Urine, Clean Catch Streptococcus pneumoniae Antigen (M - Final 10/08/24 22:45 Stool Stool Occult Blood (ARNALDO) - Final Radiography Diagnostic Testing: Radiology Impression Chest X-Ray 10/14/24 08:30 IMPRESSION: Pulmonary congestion and edema. Pneumonia cannot be excluded. Reading Location: [facility] Physical Exam Const alert and no apparent distress General Appearance: cooperative HEENT normocephalic and head/scalp atraumatic Eyes EOMs intact bilaterally, conjunctivae normal and no scleral icterus Neck supple General: trachea midline Chest inspection of chest normal Resp normal respiratory effort Auscultation: diminished lung sounds; Negative for rales, rhonchi or wheezes Cardio regular rate and regular rhythm GI normal to inspection, nondistended, normoactive bowel sounds Extremity no clubbing, cyanosis or edema Skin no rashes or lesions noted Neuro CN's II-XII intact bilaterally, moves all extremities and no focal motor deficits Psych Mood & Affect: flat affect Charges/Coding Visit Charges Inpatient E&M: 18848 Subs Hosp L2
--- NOTE | 2024-10-16 10:44 | CASEMGMT ---
Social Work Per physician, pt may be ready for return to [facility] in the next couple days. Pt will require IV ATB. DC pharmacy assistant notified and to update facility and request to start precert. Plan: Return to [facility], pending precert S ZAYRA Pritchard
--- NOTE | 2024-10-16 10:49 | CASEMGMT ---
Updates sent to [facility] with request to submit precert. Kaity Ramirez DC Planning Asst.
[2024-10-16] MEDS: Acetaminophen 325 MG Tablet 650 MG PO (10:56)
--- NOTE | 2024-10-16 12:40 | PN.HOSP_ITS ---
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) Pneumonia, unspecified organism (10/09/24) Other disorders of lung (10/09/24) Ulcerative colitis, unspecified, without complications (10/09/24) Disorientation, unspecified (10/09/24) Altered mental status, unspecified (10/09/24) Abnormal findings on diagnostic imaging of skull and head, not elsewhere classified (10/09/24) Abnormal findings on diagnostic imaging of other abdominal regions, including retroperitoneum (10/09/24) Personal history of nicotine dependence (10/09/24) Objective Data Objective Data Vital Signs: Vital Signs Temp Pulse Resp BP Pulse Ox O2 Del Method O2 Flow Rate 97.5 F L 79 18 113/58 L 95 Nasal Cannula 8 10/16/24 08:00 10/16/24 08:00 10/16/24 08:00 10/16/24 08:00 10/16/24 09:11 10/16/24 09:34 10/16/24 09:34 FiO2 30 10/16/24 00:09 Oxygen Flow Rate (L/min) 8 Oxygen Delivery Method Nasal Cannula Weight: 140 lb 14.006 oz Body Mass Index (BMI) 19.7 Intake & Output: Intake and Output for Last 24 Hours 10/14/24 10/15/24 10/16/24 23:59 23:59 23:59 Intake Total 1500 / 1500 1865 / 1865 170 / 170 Output Total 3200 / 3550 1100 / 1700 1250 / 1250 Balance -1700 / -2050 765 / 165 -1080 / -1080 Lab / Micro Data 10/15/24 06:35 10/16/24 05:48 Labs: Laboratory Results - last 24 hr 10/15/24 16:05: POC Glucose 111 H 10/15/24 20:41: POC Glucose 154 H 10/16/24 05:48: Sodium 136, Potassium 3.6, Chloride 105, Carbon Dioxide 21.8, Anion Gap 9, BUN 13, Creatinine 0.41 L, Estim Creat Clear Calc 74.33, Est GFR (MDRD) Non-Af 115, BUN/Creatinine Ratio 31.4 H, Glucose 206 H, Calcium 8.1, Phosphorus 3.5, Magnesium 1.7 Micro: Microbiology 10/13/24 22:55 Blood Culture (Wb) - Right Forearm Blood Culture - Preliminary No growth in 48 hours. 10/13/24 Unknown Bronchial Lavage - Right Middle Lobe Gram Stain - Final 10/13/24 Unknown Bronchial Lavage - Right Middle Lobe Respiratory Culture - Preliminary Staphylococcus aureus Possible Fungus 10/10/24 13:30 Sputum, Expectorated/Coughed Gram Stain - Final 10/10/24 13:30 Sputum, Expectorated/Coughed Respiratory Culture - Final Staphylococcus aureus 10/10/24 13:30 Sputum, Expectorated/Coughed Acid Fast Bacilli Smear - Final 10/10/24 13:30 Sputum, Expectorated/Coughed Acid Fast Bacilli Culture - Preliminary 10/09/24 12:35 Nasal Secretion MRSA (PCR) - Final 10/09/24 12:35 Mucosa - Nose SARS-CoV-2, Influenza & RSV (PCR) - Final 10/09/24 05:17 Urine, Clean Catch Legionella Antigen - Final 10/09/24 05:17 Urine, Clean Catch Streptococcus pneumoniae Antigen (M - Final 10/08/24 22:45 Stool Stool Occult Blood (ARNALDO) - Final Physical Exam Narrative Seen and examined Blood pressure low 100-113/58. Patient in the morning was on 5 L currently charted 8 L. Feels short of breath. Patient on BiPAP Patient has history ulcerative colitis and he had colectomy and stoma on the right lower quadrant. No fever. Physical exam General: Alert, Oriented x3, Cooperative. BMI 19.7 kg/m? HEENT: Atraumatic, PERRLA, EOMI, Normocephalic Oral: Oral mucosa dry. No Gingival or Mucosal Lesions/ Ulcerations Neck: Supple, No JVD, Negative Carotid Bruits Chest wall/Lungs: Right upper chest Mediport. Air entry diminished in bilateral lung bases. Mild expiratory rhonchi/crepitations Cardiovascular: Regular rate, Regular Rhythm, Normal S1, Normal S2, No M/G/R Abdomen: Liquid fecal matter about 150 ml on ileostomy bag bowel Sounds Present, Soft, Non Tender, Non-Distended : No dysuria. No renal angle tenderness. No suprapubic tenderness. Extremities: No edema, Capillary Refill Less than 3 Seconds Skin: No rashes, No breakdown Musculoskeletal: No Tenderness to Palpation of Joints or Extremities Neurological: Cranial nerves II-XII grossly intact, DTR 2+/4. No acute focal neurological deficit. Psych/Mental Status: Flat affect. Assessment & Plan Assessment/Plan (1) Altered mental status: QUALIFIERS: Altered mental status type: disorientation Qualified Code(s): R41.0 - Disorientation, unspecified (2) Cavitary pneumonia: (3) History of alcohol abuse: (4) History of tobacco abuse: PLAN: Plan 74-year-old gentleman was admitted with acute onset of confusion at [facility], shortness of breath/dyspnea and not feeling well. No hemoptysis fever night sweats. No direct contact with TB 1. Acute metabolic encephalopathy: ? Neurology was consulted for possible stroke MRI is negative for stroke, EEG ordered for today ? B12 thiamine folic acid and thiamine IV as recommended by neurologist. Treatment of possible underlying infection. ? In the meantime continue with airborne precautions and sputum samples to be able to definitively rule out TB ? Continue with broad-spectrum antibiotics currently on Unasyn ? Initial respiratory cultures are showing Staph aureus and the MRSA screen was negative. The sputum smear is negative and he can be removed from precautions 10/14: Metabolic encephalopathy resolved Hypotension with increased respiratory distress, acute hypoxic respiratory failure: Patient was hypotensive and required BiPAP on 10/13 night. Blood pressure has recovered I think it was mainly due to hypovolemia from increased ileostomy loss. IV fluid replacement ordered. Imodium ordered. 10/15: BP on lower side 88/62. IV fluid Ringer lactate 1 L bolus ordered over 2 hours. Imodium has already been ordered. Hypokalemia. Magnesium and phosphorus on low normal. Potassium, magnesium and phosphorus replacements ordered. 10/16: Electrolytes in normal range. Glucose 206. High because of IV Solu-Medrol added yesterday, 10/15. 2. Acute on chronic hypoxic respiratory failure due to multiple cavitary lesion: CT scan of the abdomen showed right middle lobe cavitary lesion, subsequent chest CT shows multiple cavitary lesions and groundglass opacities. Epidemiologically, TB seems unlikely as patient had QuantiFERON gold test in June was normal and he has not been any where where TB is endemic ? Trip Follower and ID were concerned Aspergillus antibodies are pending Echo October 09 shows EF 65%. Normal RV size and systolic function Sputum culture shows Staph aureus 2+. MSSA 10/14: Pulmonary consult reviewed. BAL cultures are pending. On empiric antibiotic. Patient has prolonged history of smoking therefore clinical suspicion of COPD. CT chest shows mild to moderate emphysematous disease. ertapenem to cover MSSA and other pathogens including anaerobes for total of 4 weeks. 10/16: Chest x-ray shows fluid congestion from 10/14. BP slightly better, 113/58. Lasix 20 mg IV 1 dose ordered. Discussed with ID Dr. Darling. Advised to continue IV ertapenem for 6 weeks that will require PICC line. BAL also shows some fungus but he thinks it might not be significant. Discussed with the fitness and wellness instructor 3. Ulcerative colitis status post colon resection/GERD ? He was transferred to [place] for colon resection. Documentary details of surgery unavailable ? Continue with Bentyl and mesalamine ? Continue PPI 4 Hyperlipidemia Continue with statin 5. Hypokalemia: Potassium replacement ordered DVT: Lovenox Charges/Coding Visit Charges Inpatient E&M: 65371 Subs Hosp L2
--- NOTE | 2024-10-16 13:53 | CASEMGMT ---
SYDNI PRESTON note: SYDNI PRESTON spoke silke/Kailey @ [facility] ([phone], ext [phone]), requesting update on DC plan. She was made aware plan is to return to [facility], possibly tomorrow. She requests dc summary be faxed to [facility] @ [phone] @ discharge. Flaquita LYNN RN, CM
--- NOTE | 2024-10-16 14:11 | CASEMGMT ---
Amarilis has obtained auth to admit. Pt can admit thru 10/22. SW updated. Kaity Ramirez DC Planning Asst.
[2024-10-16] MEDS: Collagenase 30gm Tube 1 APPLIC TOPICAL (14:37)
[2024-10-16] MEDS: Hydrocortisone 25 MG Suppository RC ×2 (14:37→22:25)
[2024-10-16 16:16] LABS: Bedside Glucose 54 mg/dL (74-106)
[2024-10-16 16:16] LABS: Bedside Glucose 70 mg/dL (74-106)
[2024-10-16] MEDS: Glucerna Shake 120 ML LIQUID PO (17:27)
[2024-10-16] MEDS: Atorvastatin Calcium 10 MG Tablet PO (22:25)
[2024-10-17] VITALS (7 sets, daily range): BP systolic 95–106; BP diastolic 54–64; PULSE 62–80; RESP 18–24; TEMP 36.4–36.6; O2SAT 94–98
[2024-10-17] MEDS: 0.9% Saline Lock 10 ML Syringe IV ×2 (00:25→10:14)
[2024-10-17] MEDS: Methylprednisolone Sod Succ 40 MG/ML VIAL IV ×2 (00:25→06:19)
[2024-10-17 05:56] LABS: Absolute Lymphocyte Count 0.59 X10^3/uL (0.83-4.51); Absolute Neutrophil Count 2.5 X10^3/uL (2.0-7.7); Hematocrit 23.3 % (40-54); Hemoglobin 7.4 g/dL (13.0-16.5); Lymphocyte # 0.59 X10^3/ul (0.83-4.51); Lymphocyte % 17.7 % (19-41); Mean Corp Hgb Conc 31.8 g/dL (32-36); Mean Corpuscular Hgb 28.5 pg (27.0-32.0); Mean Corpuscular Volume 89.6 fL (80-94); Mean Platelet Vol. 10.7 fl (6.2-12.0); Monocyte# 0.11 X10^3/uL; Monocyte% 3.3 % (0-10); NRBC Flagged by Analyzer 0 % (0-5); Neutrophil # 2.51 X10^3/uL (2.7-7.7); Neutrophil % 75.4 % (47-70); POSITIVE DIFFERENTIAL YES; POSITIVE MORPHOLOGY YES; Platelet Count 149 K/mm3 (150-450); RBC Distribution Width CV 13.9 % (11.6-14.6); RBC Distribution Width SD 45.8 fl (35.1-43.9); White Blood Count 3.3 K/mm3 (4.4-11.0)
[2024-10-17 06:14] LABS: Differential Indicated SCAN CRITERIA MET
[2024-10-17] MEDS: Na Biphos/Potassium Phosphate PACKET 1 PACKET PO (06:19)
[2024-10-17] MEDS: Dicyclomine 10 MG Capsule PO ×2 (06:19→17:59)
[2024-10-17] MEDS: Thiamine Hydrochloride 500 MG in 0.9% Normal Saline (50mL Bag) 50 ML 200 MG IV ×2 (06:19→15:07)
[2024-10-17] MEDS: Ipratropium/Albuterol Sulfate 3 ML AMPUL.NEB INHALATION ×2 (06:52→12:08)
[2024-10-17 06:53] LABS: Anion Gap 9 (5-15); BUN 11 mg/dL (4-19); BUN/Creat Ratio 32.6 RATIO (10-20); Calcium,Total 8.4 mg/dL (7.6-11.0); Carbon Dioxide 19.8 mmol/L (21.0-32.0); Chloride 109 mmol/L (98-108); Creatinine, Serum 0.35 mg/dL (0.70-1.20); EST Glomerular Filtration Rate 120 (>60); Estimated Creatinine Clearance 74.33 ml/min (50-250); Glucose 194 mg/dL (70-99); Potassium 3.7 mmol/L (3.3-5.1); Sodium Level 138 mmol/L (133-145)
[2024-10-17 07:29] LABS: Ovalocyte 1+; Platelet Estimate SLT DEC (ADEQ); Polychromasia 1+; Reactive Lymphocyte 1+
[2024-10-17] MEDS: Pregabalin 75 MG Capsule 150 MG PO (08:38)
[2024-10-17] MEDS: Magnesium Chloride 64 MG Delay Rel.Tablet 128 MG PO (08:38)
[2024-10-17] MEDS: Multivitamins,Therapeutic Tablet 1 TABLET PO (08:39)
[2024-10-17] MEDS: MESALAMINE 400 MG CAPSULE.DR PO (08:39)
[2024-10-17] MEDS: Pantoprazole Sodium 40 MG Tablet PO (08:39)
[2024-10-17] MEDS: guaiFENesin/D-Methorphan TAB.SR.12H 1 TABLET PO (08:39)
[2024-10-17] MEDS: Lactobacillis Acidophilus 1 CAP PO ×2 (08:39→17:59)
[2024-10-17] MEDS: Glucerna Shake 120 ML LIQUID PO (08:39)
--- NOTE | 2024-10-17 08:40 | PCM.TXEXTCAR ---
Diet Diet Order/Speech Therapy: 10/09/24 11:39 Diet: Carbohydrate Controlled Food consistency:: Easy to Chew Liquid Consistency:: Regular/Thin Dietary Modifications:: Consistent Carbohydrate Type of Dietary Supplement:: Yoly BID Diet Comments: staff to supervise 1st meal then move to distant supervision if tolerated. DC O2, CPAP, BIPAP needs Home O2 Discharge instructions: Yes Type of respiratory needs?: Oxygen Oxygen frequency: Continuous Continuous oxygen liters per minute: 2-4 Wound(s) Sacrum: Wound Type: Pressure Injury left sacrum: Wound Type: Pressure Injury Dressing Change: santyl with Aquacel right sacrum: Wound Type: Pressure Injury Dressing Change: santyl with Aquacel left lateral back: Wound Type: healed abrasion Dressing Change: Adaptic R elbow: Wound Type: Skin Tear R Scapula: Wound Type: Skin Tear Problem/Diagnosis (1) Altered mental status: Status: Acute Code(s): R41.82 - Altered mental status, unspecified (2) Cavitary pneumonia: Status: Acute Code(s): J18.9 - Pneumonia, unspecified organism; J98.4 - Other disorders of lung (3) History of alcohol abuse: Status: Acute Code(s): F10.11 - Alcohol abuse, in remission (4) History of tobacco abuse: Status: Acute Code(s): Z87.891 - Personal history of nicotine dependence Plan 74-year-old gentleman was admitted with acute onset of confusion at [facility], shortness of breath/dyspnea and not feeling well. No hemoptysis fever night sweats. No direct contact with TB 1. Acute metabolic encephalopathy: ? Neurology was consulted for possible stroke MRI is negative for stroke, EEG ordered for today ? B12 thiamine folic acid and thiamine IV as recommended by neurologist. Treatment of possible underlying infection. ? In the meantime continue with airborne precautions and sputum samples to be able to definitively rule out TB ? Continue with broad-spectrum antibiotics currently on Unasyn ? Initial respiratory cultures are showing Staph aureus and the MRSA screen was negative. The sputum smear is negative and he can be removed from precautions 10/14: Metabolic encephalopathy resolved Hypotension with increased respiratory distress, acute hypoxic respiratory failure: Patient was hypotensive and required BiPAP on 10/13 night. Blood pressure has recovered I think it was mainly due to hypovolemia from increased ileostomy loss. IV fluid replacement ordered. Imodium ordered. 10/15: BP on lower side 88/62. IV fluid Ringer lactate 1 L bolus ordered over 2 hours. Imodium has already been ordered. Hypokalemia. Magnesium and phosphorus on low normal. Potassium, magnesium and phosphorus replacements ordered. 10/16: Electrolytes in normal range. Glucose 206. High because of IV Solu-Medrol added yesterday, 10/15. 2. Acute on chronic hypoxic respiratory failure due to multiple cavitary lesion: CT scan of the abdomen showed right middle lobe cavitary lesion, subsequent chest CT shows multiple cavitary lesions and groundglass opacities. Epidemiologically, TB seems unlikely as patient had QuantiFERON gold test in June was normal and he has not been any where where TB is endemic ? Blueberry Grower and ID were concerned Aspergillus antibodies are pending Echo October 09 shows EF 65%. Normal RV size and systolic function Sputum culture shows Staph aureus 2+. MSSA 10/14: Pulmonary consult reviewed. BAL cultures are pending. On empiric antibiotic. Patient has prolonged history of smoking therefore clinical suspicion of COPD. CT chest shows mild to moderate emphysematous disease. ertapenem to cover MSSA and other pathogens including anaerobes for total of 4 weeks. 10/16: Chest x-ray shows fluid congestion from 10/14. BP slightly better, 113/58. Lasix 20 mg IV 1 dose ordered. Discussed with ID Dr. Darling. Advised to continue IV ertapenem for 6 weeks that will require PICC line. BAL also shows some fungus but he thinks it might not be significant. Discussed with the architectural renderer 3. Ulcerative colitis status post colon resection/GERD ? He was transferred to [place] for colon resection. Documentary details of surgery unavailable ? Continue with Bentyl and mesalamine ? Continue PPI 4 Hyperlipidemia Continue with statin 5. Hypokalemia: Potassium replacement ordered DVT: Lovenox Allergies/Procedures Done in Hospital Allergies ibuprofen Adverse Reaction (Verified 10/08/24 16:25) Upset Stomach Type of Care/Length of Stay Estimated LOS: Convalescent Care Less Than 30 days Type of Care Needed: Skilled Rehab Potential: Fair Prognosis: Fair Additional Orders/Day of Discharge Day of Discharge: 10/17/24 Dietary and Speech Recommendations Dietitian Recommendations/Changes: Continue consistent carbohydrate diet with HELP DESK CONSULTANT consistency/texture Continue yoly BID with breakfast and dinner. Will order 120ml glucerna shake 4x daily with medpass. Will monitor weight trends. Discharge Plan Admission Admit Date/Time: 10/09/24 16:02 Attending Provider: Lb Hall Primary Care Provider: Reji Levin Consulting Providers: Khris Landrum; Rodrigo Cameron; Hank De La Rosa; Lynn Watts; Cristy Johnson; Andrew Montgomery; Nael Toledo; Latasha Husain; JOSE M COOLEY; Magdalena Pollard; Janki Clark; Wesley Cerna; Lexus Estes; Karan Chen Discharge Orders/Prescriptions Prescriptions: New prednisone 20 mg Tablet 40 mg PO BREAKFAST 5 Days Qty: 0 0RF Mucinex DM 30-600 mg Tablet Extended Release 12 Hr 1 tab PO BID 7 Days Qty: 14 0RF L.acidoph,saliva-B.bif-S.therm 175 mg Capsule 1 cap PO 3XD Qty: 0 0RF magnesium chloride [Mag 64] 64 mg Tablet,Delayed Release (Dr/Ec) 128 mg PO BID Qty: 0 0RF thiamine HCl (vitamin B1) 100 mg tablet 100 mg PO DAILY Qty: 30 2RF Continued albuterol sulfate 90 mcg/actuation HFA aerosol inhaler 1 inh inhalation Q6H PRN (Reason: shortness of breath or wheezing) Qty: 8.5 1RF simvastatin 20 mg tablet 20 mg PO QHS pregabalin 150 mg capsule 150 mg PO BID pantoprazole 40 mg Tablet,Delayed Release (Dr/Ec) 40 mg PO DAILY Qty: 30 0RF dicyclomine 10 mg Capsule 10 mg PO TIDAC Qty: 60 0RF mesalamine [Pentasa] 500 mg capsule, extended release 500 mg PO BID 30 Days Qty: 60 0RF hydrocortisone acetate 25 mg suppository 25 mg MT Q12H ipratropium-albuterol 0.5 mg-3 mg(2.5 mg base)/3 mL solution for nebulization 3 ml inhalation Q8H PRN (Reason: SOB) multivitamin [Daily Multi-Vitamin] Tablet 1 tab PO DAILY Santyl 250 unit/gram ointment 1 applic topical DAILY dextromethorphan-guaifenesin [Antitussive DM] 10-100 mg/5 mL syrup 10 ml PO Q8H PRN (Reason: cough) acetaminophen [Aminofen] 325 mg tablet 650 mg PO Q6H PRN (Reason: fever or pain) Referrals / Follow Up: Ji Troncoso DO [Med Staff - Active Staff] - Within 1 Month Reji Levin MD [Primary Care Provider] - Within 2 Weeks Rodrigo Cameron MD [Med Staff - Active Staff] - Within 1 Month Brigitte Muse PA [Med Staff - Adv Practice Prof] - Within 1 Month Disposition Disposition (needs filled in before D/C Order can be placed): Alf Facility (1) Altered mental status Qualifiers: Altered mental status type: disorientation Qualified Code(s): R41.0 - Disorientation, unspecified
--- NOTE | 2024-10-17 09:32 | PCM.PN.INT ---
Assessment & Plan Assessment/Plan (1) Abnormal abdominal CT scan: PLAN: Plan RECOMMENDATIONS: 1. Wean supplemental oxygen to maintain saturations at or above 90%. 2. Antimicrobials per ID recommendations. 3. Continue scheduled bronchodilators. 4. Okay to discontinue IV steroids and transition to prednisone 40 mg daily x 5 days. 5. Encourage incentive spirometer use and mobilize patient as tolerated. 6. Will sign off at this time. Please call with any additional questions. IMPRESSIONS: 1. Abnormal CT scan of the abdomen Incidental note was made of a right middle lobe cavitary lesion on CT imaging of the abdomen and pelvis. Subsequent dedicated chest CT revealed multiple cavitary lesions and ground glass opacities. Suspicion for underlying tuberculosis is very low. Subsequent sputum culture and BAL from bronchoscopy are demonstrating growth of MSSA and possible fungus. Recommend continuing antimicrobials per ID recommendations. Supplemental oxygen will be weaned as tolerated. The patient will be maintained on scheduled bronchodilators and steroids. Encourage incentive spirometer use and mobilize patient as tolerated. 2. History of ulcerative colitis/GERD/neuropathy/hyperlipidemia/diabetes mellitus Complicates care, management, recovery and prognosis. Continue supportive measures as noted above. This note was generated with [employer] dictation software. It may contain incorrect words, spelling, and punctuation that were not noted in checking the note before signing. Subjective Subjective The patient was seen and examined at the bedside this morning. Events from the last 24 hours have been reviewed. The patient is currently afebrile, hemodynamically stable and maintaining appropriate oxygen saturations on 2 L/min via nasal cannula. The patient is currently documented to be overall net +4.7 L for the hospitalization. No overnight events are noted by the nursing staff. Objective Data Objective Data The patient's most recent lab work, culture data and imaging studies have all been personally reviewed. Sputum culture is demonstrating growth of MSSA, along with possible fungus. Vital Signs: Vital Signs Temp Pulse Resp BP Pulse Ox O2 Del Method O2 Flow Rate 97.9 F 68 22 H 105/64 95 Nasal Cannula 4 10/17/24 06:00 10/17/24 06:52 10/17/24 06:52 10/17/24 06:00 10/17/24 06:52 10/17/24 06:52 10/17/24 06:52 FiO2 30 10/16/24 00:09 Oxygen Flow Rate (L/min) 4 Oxygen Delivery Method Nasal Cannula Weight: 140 lb 14.006 oz Body Mass Index (BMI) 19.7 Intake & Output: Intake and Output for Last 24 Hours 10/15/24 10/16/24 10/17/24 23:59 23:59 23:59 Intake Total 1865 / 1865 760 / 760 55 / 55 Output Total 1100 / 1700 2200 / 2200 700 / 700 Balance 765 / 165 -1440 / -1440 -645 / -645 Lab / Micro Data Attestation: I reviewed the patient's lab results. 10/17/24 05:00 10/17/24 05:00 Labs: Laboratory Results - last 24 hr 10/14/24 06:09: POC Glucose 54 L 10/14/24 06:10: POC Glucose 70 L 10/17/24 05:00: WBC 3.3 L, RBC 2.60 L, Hgb 7.4 L, Hct 23.3 L, MCV 89.6, MCH 28.5, MCHC 31.8 L, RDW Std Deviation 45.8 H, RDW Coeff of Janice 13.9, Plt Count 149 L, MPV 10.7, Immature Gran % (Auto) 3.600 H, Neut % (Auto) 75.4 H, Lymph % (Auto) 17.7 L, [place] % (Auto) 3.3, Eos % (Auto) 0.0, Baso % (Auto) 0.0, Absolute Neuts (auto) 2.5, Absolute Lymphs (auto) 0.59 L, Nucleated RBC % 0, Reactive Lymphocytes 1+, Platelet Estimate SLT DEC, Polychromasia 1+, Ovalocytes 1+, Sodium 138, Potassium 3.7, Chloride 109 H, Carbon Dioxide 19.8 L, Anion Gap 9, BUN 11, Creatinine 0.35 L, Estim Creat Clear Calc 74.33, Est GFR (MDRD) Non-Af 120, BUN/Creatinine Ratio 32.6 H, Glucose 194 H, Calcium 8.4 Micro: Microbiology 10/13/24 Unknown Bronchial Lavage - Right Middle Lobe Gram Stain - Final 10/13/24 Unknown Bronchial Lavage - Right Middle Lobe Respiratory Culture - Preliminary Staphylococcus aureus Possible Fungus 10/13/24 22:55 Blood Culture (Wb) - Right Forearm Blood Culture - Preliminary No growth in 48 hours. 10/10/24 13:30 Sputum, Expectorated/Coughed Gram Stain - Final 10/10/24 13:30 Sputum, Expectorated/Coughed Respiratory Culture - Final Staphylococcus aureus 10/10/24 13:30 Sputum, Expectorated/Coughed Acid Fast Bacilli Smear - Final 10/10/24 13:30 Sputum, Expectorated/Coughed Acid Fast Bacilli Culture - Preliminary 10/09/24 12:35 Nasal Secretion MRSA (PCR) - Final 10/09/24 12:35 Mucosa - Nose SARS-CoV-2, Influenza & RSV (PCR) - Final 10/09/24 05:17 Urine, Clean Catch Legionella Antigen - Final 10/09/24 05:17 Urine, Clean Catch Streptococcus pneumoniae Antigen (M - Final 10/08/24 22:45 Stool Stool Occult Blood (ARNALDO) - Final Radiography Diagnostic Testing: Radiology Impression Chest X-Ray 10/14/24 08:30 IMPRESSION: Pulmonary congestion and edema. Pneumonia cannot be excluded. Reading Location: [facility] Physical Exam Const alert and no apparent distress General Appearance: cooperative HEENT normocephalic and head/scalp atraumatic Eyes EOMs intact bilaterally, conjunctivae normal and no scleral icterus Neck supple General: trachea midline Chest inspection of chest normal Resp normal respiratory effort Auscultation: diminished lung sounds; Negative for rales, rhonchi or wheezes Cardio regular rate and regular rhythm GI normal to inspection, nondistended, normoactive bowel sounds Extremity no clubbing, cyanosis or edema Skin no rashes or lesions noted Neuro CN's II-XII intact bilaterally, moves all extremities and no focal motor deficits Psych Mood & Affect: flat affect Charges/Coding Visit Charges Inpatient E&M: 31637 Subs Hosp L2
--- NOTE | 2024-10-17 10:03 | PCM.DC.SUM ---
Providers Date of Admission: 10/09/24 Date of Discharge: 10/17/24 Primary Care Physician: Dr. Reji Levin MD Consultations 10/08/24 21:49 Consult: Infectious Disease Routine Consulting Provider: Rodrigo Cameron Reason for Consult: RML cavitary PNA. EMERGENT Consult: No Notified: Yes Date Notified: 10/09/24 Time Notified: 06:44 Method of Notification: Answering Service 10/08/24 22:15 Consult: Tele-Neurology Routine Consulting Provider: [facility] Reason for Consult: Acute Ischemic Stroke/TIA EMERGENT Consult: No MD Notified: Yes Date Notified: 10/08/24 Time Notified: 23:33 Method of Notification: Answering Service Method of Consult:: Telemedicine Nursing Unit Staff Notify [facility] of Tele-Neurology Consult: Yes 10/08/24 22:50 Consult: Activated Sludge Attendant / Pulmonary Medicine Routine Consulting Provider: Intensivists/Pulmonary Med Reason for Consult: RML cavitary PNA. EMERGENT Consult: No Notified: Yes Date Notified: 10/09/24 Time Notified: 06:49 Method of Notification: Text 10/09/24 10:30 Consult: Onc/Wound/activities assistant Routine Comment: Reason for Consult:: Sacral wound, L shoulder breakdown, ostomy Comments:: Has santyl ordered, not sure where to use it Reason For Visit: AMS WITH SUSPECTED CVA AND DEHYDRATION Diagnosis Discharge Diagnosis (1) Altered mental status: Status: Acute Code(s): R41.82 - Altered mental status, unspecified Qualifiers: Altered mental status type: disorientation Qualified Code(s): R41.0 - Disorientation, unspecified (2) Cavitary pneumonia: Status: Acute Code(s): J18.9 - Pneumonia, unspecified organism; J98.4 - Other disorders of lung (3) History of alcohol abuse: Status: Acute Code(s): F10.11 - Alcohol abuse, in remission (4) History of tobacco abuse: Status: Acute Code(s): Z87.891 - Personal history of nicotine dependence Plan 74-year-old gentleman was admitted with acute onset of confusion at [facility], shortness of breath/dyspnea and not feeling well. No hemoptysis fever night sweats. No direct contact with TB 1. Acute metabolic encephalopathy: ? Neurology was consulted for possible stroke MRI is negative for stroke, EEG ordered for today ? B12 thiamine folic acid and thiamine IV as recommended by neurologist. Treatment of possible underlying infection. ? In the meantime continue with airborne precautions and sputum samples to be able to definitively rule out TB ? Continue with broad-spectrum antibiotics currently on Unasyn ? Initial respiratory cultures are showing Staph aureus and the MRSA screen was negative. The sputum smear is negative and he can be removed from precautions 10/14: Metabolic encephalopathy resolved Hypotension with increased respiratory distress, acute hypoxic respiratory failure: Patient was hypotensive and required BiPAP on 10/13 night. Blood pressure has recovered I think it was mainly due to hypovolemia from increased ileostomy loss. IV fluid replacement ordered. Imodium ordered. 10/15: BP on lower side 88/62. IV fluid Ringer lactate 1 L bolus ordered over 2 hours. Imodium has already been ordered. Hypokalemia. Magnesium and phosphorus on low normal. Potassium, magnesium and phosphorus replacements ordered. 10/16: Electrolytes in normal range. Glucose 206. High because of IV Solu-Medrol added yesterday, 10/15. 10/17: 2. Acute on chronic hypoxic respiratory failure due to multiple cavitary lesion: CT scan of the abdomen showed right middle lobe cavitary lesion, subsequent chest CT shows multiple cavitary lesions and groundglass opacities. Epidemiologically, TB seems unlikely as patient had QuantiFERON gold test in June was normal and he has not been any where where TB is endemic ? Multi Site Leasing Consultant and ID were concerned Aspergillus antibodies are pending Echo October 09 shows EF 65%. Normal RV size and systolic function Sputum culture shows Staph aureus 2+. MSSA 10/14: Pulmonary consult reviewed. BAL cultures are pending. On empiric antibiotic. Patient has prolonged history of smoking therefore clinical suspicion of COPD. CT chest shows mild to moderate emphysematous disease. ertapenem to cover MSSA and other pathogens including anaerobes for total of 4 weeks. 10/16: Chest x-ray shows fluid congestion from 10/14. BP slightly better, 113/58. Lasix 20 mg IV 1 dose ordered. Discussed with ID Dr. Darling. Advised to continue IV ertapenem for 6 weeks that will require PICC line. BAL also shows some fungus but he thinks it might not be significant. Discussed with the model and mold maker plaster 3. Ulcerative colitis status post colon resection/GERD ? He was transferred to [place] for colon resection. Documentary details of surgery unavailable ? Continue with Bentyl and mesalamine ? Continue PPI 4 Hyperlipidemia Continue with statin 5. Hypokalemia: Potassium replacement ordered 6. Chronic normocytic normochromic anemia from anemia of chronic disease: Patient baseline hemoglobin stays between 7 to 8 g/dL from multiple previous hospitalizations but recently on few occasions during this hospital his hemoglobin was 10.4 and 11.4. No active bleeding. IV iron regimen ordered. labs monitored twice weekly hemoglobin DVT: Lovenox Medications at Discharge Home Medications albuterol sulfate 90 mcg/actuation aerosol inhaler 1 inh inhalation Q6H PRN shortness of breath or wheezing #8.5 grams 02/26/21 pregabalin 150 mg capsule 150 mg PO BID PAIN 06/19/24 simvastatin 20 mg tablet 20 mg PO QHS HYPERLIPIDEMIA 06/19/24 dicyclomine 10 mg capsule 10 mg PO TIDAC COLITIS #60 caps 07/23/24 mesalamine 500 mg capsule,extended release (Pentasa) 500 mg PO BID pain/inflammation 30 days #60 caps 07/23/24 pantoprazole 40 mg tablet,delayed release 40 mg PO DAILY GERD #30 tabs 07/23/24 acetaminophen 325 mg tablet (Aminofen) 650 mg PO Q6H PRN fever or pain 10/08/24 collagenase clostridium histo. 250 unit/gram topical ointment (Santyl) 1 applic topical DAILY WOUND CARE 10/08/24 dextromethorphan-guaifenesin 10 mg-100 mg/5 mL oral syrup (Antitussive DM) 10 ml PO Q8H PRN cough 10/08/24 hydrocortisone acetate 25 mg rectal suppository 25 mg [place] Q12H MUCOUS MEMBRANE 10/08/24 ipratropium 0.5 mg-albuterol 3 mg (2.5 mg base)/3 mL nebulization soln 3 ml inhalation Q8H PRN SOB 10/08/24 multivitamin (Daily Multi-Vitamin tablet) 1 tab PO DAILY SUPPLEMENT 10/08/24 L.acidophil,salivari-Bifido bifidum-Strep thermoph 175 mg capsule 1 cap PO 3XD #0 caps 10/17/24 dextromethorphan-guaifenesin 30 mg-600 mg tablet extended [id number] hr (Mucinex DM) 1 tab PO BID 7 days #14 tabs 10/17/24 magnesium chloride 64 mg (magnesium chloride) tablet,delayed release (Mag 64) 128 mg (2 x 64 mg) PO BID #0 tabs 10/17/24 prednisone 20 mg tablet 40 mg (2 x 20 mg) PO BREAKFAST 5 days #0 tabs 10/17/24 thiamine HCl (vitamin B1) 100 mg tablet 100 mg PO DAILY #30 tabs 10/17/24 Physical Exam Narrative Seen and examined As per nursing staff he has some problem in swallowing but got better in the afternoon. Multiple chronic comorbidities including anemia, ulcerative colitis status post total colectomy, limited small bowel absorption, pneumonia and lung cavities. BP on baseline low 100s. On BiPAP as needed. On 2 L of oxygen. Patient has history ulcerative colitis and he had colectomy and stoma on the right lower quadrant. No fever. Physical exam General: Alert, Oriented x3, Cooperative. BMI 19.7 kg/m? HEENT: Atraumatic, PERRLA, EOMI, Normocephalic Oral: Oral mucosa dry. No Gingival or Mucosal Lesions/ Ulcerations Neck: Supple, No JVD, Negative Carotid Bruits Chest wall/Lungs: Right upper chest Mediport. Air entry diminished in bilateral lung bases. Mild coarse crepitations but Cardiovascular: Regular rate, Regular Rhythm, Normal S1, Normal S2, No M/G/R Abdomen: Liquid fecal matter about 150 ml on ileostomy bag bowel Sounds Present, Soft, Non Tender, Non-Distended : No dysuria. No renal angle tenderness. No suprapubic tenderness. Extremities: No edema, Capillary Refill Less than 3 Seconds Skin: No rashes, No breakdown Musculoskeletal: No Tenderness to Palpation of Joints or Extremities Neurological: Cranial nerves II-XII grossly intact, DTR 2+/4. No acute focal neurological deficit. Psych/Mental Status: Flat affect. Weight / BMI Weight Weight: 140 lb 14.006 oz Body Mass Index (BMI) 19.7 ABG / Lab / Microbiology Data 10/17/24 05:00 10/17/24 05:00 Laboratory: Laboratory Results - last 24 hr 10/13/24 : Miscellaneous Cytology SEE PATHOLOGY REPORT 10/14/24 06:09: POC Glucose 54 L 10/14/24 06:10: POC Glucose 70 L 10/17/24 05:00: WBC 3.3 L, RBC 2.60 L, Hgb 7.4 L, Hct 23.3 L, MCV 89.6, MCH 28.5, MCHC 31.8 L, RDW Std Deviation 45.8 H, RDW Coeff of Janice 13.9, Plt Count 149 L, MPV 10.7, Immature Gran % (Auto) 3.600 H, Neut % (Auto) 75.4 H, Lymph % (Auto) 17.7 L, [place] % (Auto) 3.3, Eos % (Auto) 0.0, Baso % (Auto) 0.0, Absolute Neuts (auto) 2.5, Absolute Lymphs (auto) 0.59 L, Nucleated RBC % 0, Reactive Lymphocytes 1+, Platelet Estimate SLT DEC, Polychromasia 1+, Ovalocytes 1+, Sodium 138, Potassium 3.7, Chloride 109 H, Carbon Dioxide 19.8 L, Anion Gap 9, BUN 11, Creatinine 0.35 L, Estim Creat Clear Calc 74.33, Est GFR (MDRD) Non-Af 120, BUN/Creatinine Ratio 32.6 H, Glucose 194 H, Calcium 8.4 Microbiology: Microbiology 10/13/24 Unknown Bronchial Lavage - Right Middle Lobe Gram Stain - Final 10/13/24 Unknown Bronchial Lavage - Right Middle Lobe Respiratory Culture - Preliminary Staphylococcus aureus Possible Fungus 10/13/24 22:55 Blood Culture (Wb) - Right Forearm Blood Culture - Preliminary No growth in 48 hours. 10/10/24 13:30 Sputum, Expectorated/Coughed Gram Stain - Final 10/10/24 13:30 Sputum, Expectorated/Coughed Respiratory Culture - Final Staphylococcus aureus 10/10/24 13:30 Sputum, Expectorated/Coughed Acid Fast Bacilli Smear - Final 10/10/24 13:30 Sputum, Expectorated/Coughed Acid Fast Bacilli Culture - Preliminary 10/09/24 12:35 Nasal Secretion MRSA (PCR) - Final 10/09/24 12:35 Mucosa - Nose SARS-CoV-2, Influenza & RSV (PCR) - Final 10/09/24 05:17 Urine, Clean Catch Legionella Antigen - Final 10/09/24 05:17 Urine, Clean Catch Streptococcus pneumoniae Antigen (M - Final 10/08/24 22:45 Stool Stool Occult Blood (ARNALDO) - Final D/C Instructions Discharge Diet: Carb Control Diet (staff to supervise 1st meal then move to distant supervision if tolerated.) Discharge Activity: Return to Normal Activity Weight Bearing Status: Weight bearing as tolerated Additional Activity Instructions: CBC twice weekly. Call your doctor if you observe: Fever of 101 or Higher, Coldness, Increased Pain, Numbness or Tingling, Change in Color, Inability to urinate, Inability to have a bowel movement, Shortness of breath, Dizziness, Fainting spells, Swelling in the ankles, Chest pain, Prolonged hiccupping, Increased palpitations (irregular heartbeat) and Calf discomfort DC O2, CPAP, BIPAP Needs Home O2 Discharge instructions: Yes Type of respiratory needs?: Oxygen Oxygen frequency: Continuous Continuous oxygen liters per minute: 2-4 DC home with Oxygen: Yes Home O2 MD Review: I have reviewed the oxygen testing, and the patient qualifies for home oxygen equipment and portability. The patient is mobile in the home and the community. When: IN 2 WEEKS Meaningful Use Info Meaningful Use Meaningful Use Diagnoses (Choose all that apply): None applicable Ischemic Stroke Statin Dosing Therapy Reference: STATIN DOSE THERAPY REFERENCE: * Patients > 75 years receive moderate or high dose statin therapy. * Patients 75 years or YOUNGER should receive HIGH intensity statin dose unless contraindicated. You will be required to document reason for non-treatment if statin daily dose does not meet guidelines. HIGH DOSE STATIN THERAPY DAILY Atorvastatin > than or = to 40 mg Rosuvastatin > than or = to 20 mg Amlodipine + Atorvastatin > than or = to 2.5/40 mg Ezetimibe + Simvastatin 10/80 mg Simvastatin 80mg Discharge Plan Admission Admit Date/Time: 10/09/24 16:02 Primary Reason for Your Visit: Bilateral lung cavities. Anemia Attending Provider: Lb Hall Primary Care Provider: Reji Levin Consulting Providers: Khris Landrum; Rodrigo Cameron; Hank De La Rosa; Lynn Watts; Cristy Johnson; Andrew Montgomery; Nael Toledo; Latasha Husain; JOSE M COOLEY; Magdalena Pollard; Janki Clark; Wesley Cerna; Lexus Estes; Karan Chen Instructions Additional Instructions / Restrictions: Handwritten prescription for ertapenem given by ID. Bladder scan and straight cath as needed. Discharge Orders/Prescriptions Prescriptions: New prednisone 20 mg Tablet 40 mg PO BREAKFAST 5 Days Qty: 0 0RF Mucinex DM 30-600 mg Tablet Extended Release 12 Hr 1 tab PO BID 7 Days Qty: 14 0RF L.acidoph,saliva-B.bif-S.therm 175 mg Capsule 1 cap PO 3XD Qty: 0 0RF magnesium chloride [Mag 64] 64 mg Tablet,Delayed Release (Dr/Ec) 128 mg PO BID Qty: 0 0RF thiamine HCl (vitamin B1) 100 mg tablet 100 mg PO DAILY Qty: 30 2RF Continued albuterol sulfate 90 mcg/actuation HFA aerosol inhaler 1 inh inhalation Q6H PRN (Reason: shortness of breath or wheezing) Qty: 8.5 1RF simvastatin 20 mg tablet 20 mg PO QHS pregabalin 150 mg capsule 150 mg PO BID pantoprazole 40 mg Tablet,Delayed Release (Dr/Ec) 40 mg PO DAILY Qty: 30 0RF dicyclomine 10 mg Capsule 10 mg PO TIDAC Qty: 60 0RF mesalamine [Pentasa] 500 mg capsule, extended release 500 mg PO BID 30 Days Qty: 60 0RF hydrocortisone acetate 25 mg suppository 25 mg [place] Q12H ipratropium-albuterol 0.5 mg-3 mg(2.5 mg base)/3 mL solution for nebulization 3 ml inhalation Q8H PRN (Reason: SOB) multivitamin [Daily Multi-Vitamin] Tablet 1 tab PO DAILY Santyl 250 unit/gram ointment 1 applic topical DAILY dextromethorphan-guaifenesin [Antitussive DM] 10-100 mg/5 mL syrup 10 ml PO Q8H PRN (Reason: cough) acetaminophen [Aminofen] 325 mg tablet 650 mg PO Q6H PRN (Reason: fever or pain) Referrals / Follow Up: Ji Troncoso DO [Med Staff - Active Staff] - Within 1 Month Reji Levin MD [Primary Care Provider] - Within 2 Weeks Rodrigo Cameron MD [Med Staff - Active Staff] - Within 1 Month Brigitte Muse PA [Med Staff - Adv Practice Prof] - Within 1 Month Disposition Disposition (needs filled in before D/C Order can be placed): Nursing Home Facility
[2024-10-17] MEDS: Ertapenem Sod 1 GM in 0.9% Normal Saline (50mL MB+) 50 ML IV (10:14)
[2024-10-17] MEDS: Sodium Ferric Gluconat/Sucrose 250 MG in 0.9% Normal Saline (250mL Bag) 250 ML 135 MG IV (11:14)
--- NOTE | 2024-10-17 13:03 | PN.ID_ITS ---
ID ID: Route of nutrition/ use of supplements: [] Nutritional Intake: [] IV Site: [] Orantes Catheter: [] Patient was alert and overall clinically stable. Overall in better spirits. Tolerating ertapenem well. No fevers. Currently on 2 L nasal cannula. Broncho alveolar lavage culture data reviewed. Corticosteroids being weaned Alert responsive dentition is poor lungs some coarse breath sounds heart exam S1-S2 abdomen soft nontender Assessment & Plan Assessment/Plan (1) Cavitary pneumonia: PLAN: Plan to continue daily ertapenem 1 g IV through November 12. Prescription written along with weekly blood work. PICC line right arm for IV access.
[2024-10-17] MEDS: Collagenase 30gm Tube 1 APPLIC TOPICAL (13:06)
--- NOTE | 2024-10-17 13:21 | NURSING ---
Report called to Santos at [facility]
--- NOTE | 2024-10-17 13:47 | CASEMGMT ---
Discharge Planning Discharge orders, signed med list, and transport time sent to [facility]. Physicians will transport pt by wheelchair at 4p. Nursing, SW, pt, and his updated. Kaity Ramirez DC Planning Asst.
--- NOTE | 2024-10-17 13:52 | CASEMGMT ---
Patient is ready for discharge back to [facility]. Physicians will transport patient via wheelchair van. Plan: d/c to [facility] under skilled level of care. Rachel AMARAL
--- NOTE | 2024-10-17 14:08 | CASEMGMT ---
Discharge Planning [facility]charge orders [facility]. Fax confirmation rec'd. Kaity Ramirez DC Planning Asst.
--- NOTE | 2024-10-17 18:04 | NURSING ---
notified Amarilis that tranport will not be here until 7pm
== END 2024-10-17 20:45 | disposition skilled nursing facility (03) | DRG 193 ==
LOC: ED 16:43 → PCU 21:43
PROVIDERS: Anesthesiology; Family Medicine; Internal Medicine Critical Care Medicine; Admitting Provider Internal Medicine; Emergency Provider Emergency Medicine; PCP Family Medicine; Visit Provider Internal Medicine
PROC: 0BJ08ZZ Inspection of Tracheobronchial Tree, Via Natural or Artificial Opening Endoscopic (ICD-10-PCS; CPT 31622; principal; 2024-10-13 10:15)
DX: J18.8 Other pneumonia, unspecified organism (principal); G92.8 Other toxic encephalopathy; G93.41 Metabolic encephalopathy; J96.21 Acute and chronic respiratory failure with hypoxia; A04.71 Enterocolitis due to Clostridium difficile, recurrent; K51.90 Ulcerative colitis, unspecified, without complications; L89.150 Pressure ulcer of sacral region, unstageable; E11.40 Type 2 diabetes mellitus with diabetic neuropathy, unspecified; J43.9 Emphysema, unspecified; I10 Essential (primary) hypertension; F10.10 Alcohol abuse, uncomplicated; A48.1 Legionnaires' disease; Z93.2 Ileostomy status; E86.0 Dehydration; J13 Pneumonia due to Streptococcus pneumoniae; E78.00 Pure hypercholesterolemia, unspecified; K21.9 Gastro-esophageal reflux disease without esophagitis; E86.1 Hypovolemia; E87.6 Hypokalemia; E11.622 Type 2 diabetes mellitus with other skin ulcer; S50.901A Unspecified superficial injury of right elbow, initial encounter; S41.011A Laceration without foreign body of right shoulder, initial encounter; I95.9 Hypotension, unspecified; E87.8 Other disorders of electrolyte and fluid balance, not elsewhere classified; J98.4 Other disorders of lung; Z82.49 Family history of ischemic heart disease and other diseases of the circulatory system; Z86.73 Personal history of transient ischemic attack (TIA), and cerebral infarction without residual deficits; Z87.891 Personal history of nicotine dependence; Z90.49 Acquired absence of other specified parts of digestive tract; Z79.899 Other long term (current) drug therapy; Z79.02 Long term (current) use of antithrombotics/antiplatelets; X58.XXXA Exposure to other specified factors, initial encounter
CPT/HCPCS: 36415; 36569; 70450; 70551; 71045; 71250; 74177; 80048; 80061; 80307; 81001; 82077; 82140; 82274; 82607; 82746; 82962; 83036; 83605; 83735; 83880; 84100; 84132; 84145; 84425; 84443; 85025; 86606; 87015; 87040; 87070; 87077; 87101; 87116; 87186; 87205; 87206; 87252; 87278; 87449; 87631; 87641; 88108; 88305; 88313; 89050; 92526; 92610; 93005; 93306; 93880; 94002; 94003; 94640; 94667; 94762; 95819; 97162; 97166; 97530; 97535; 97803; 99285; P9612; Q9967; A4216; J2916

== ENCOUNTER 2024-10-24 21:35 | Observation (INO) | payer OTHER, SELFPAY ==
[2024-10-24 21:37] VITALS: BP 157/61; PULSE 99; RESP 20; TEMP 36.3; O2SAT 97; BMI 20.3
[2024-10-24 21:51] VITALS: BP 100/69; PULSE 99; RESP 18; TEMP 36.3; O2SAT 91
--- NOTE | 2024-10-24 22:02 | EDS_ITS ---
HPI History of Present Illness Chief Complaint: Alt LOC PFSH [facility] Medical History Weakness Colitis Hypertension Irritable bowel Restless legs Diabetes GERD (gastroesophageal reflux disease) GI bleed Ulcerative colitis Alcohol abuse Arthritis Former smoker High cholesterol Diverticulitis Home Medications ?Medication ?Instructions ?Recorded ?Last Taken ?Type albuterol sulfate 90 mcg/actuation 1 inh inhalation Q6 H PRN shortness 02/26/21 Unknown Rx aerosol inhaler of breath or wheezing #8.5 g isis pregabalin 150 mg capsule 150 mg PO BID PAIN 06/19/24 07/27/24 History dicyclomine 10 mg capsule 10 mg PO TIDAC COLITIS #60 c aps 07/23/24 07/27/24 Rx mesalamine 500 mg capsule,extended 500 mg PO BID pain/ inflammation 30 07/23/24 07/27/24 Rx release (Pentasa) days #60 caps pantoprazole 40 mg tablet,delayed 40 mg PO DAILY GERD #30 tabs 07/23/24 07/27/24 Rx release acetaminophen 325 mg tablet 650 mg PO Q6H PRN fever or pain 10/08/24 Unknown History (Aminofen) collagenase clostridium histo. 250 1 applic topical [facility] 10/08/24 Unknown History unit/gram topical ointment (Santyl) dextromethorphan-guaifenesin 10 10 ml PO Q8H PRN cough 10/08/24 Unknown History mg-100 mg/5 mL oral syrup (Antitussive DM) hydrocortisone acetate 25 mg 25 mg MT Q12H MUCOUS MEMB JOHNNY 10/08/24 Unknown History rectal suppository ipratropium 0.5 mg-albuterol 3 mg 3 ml inhalation Q8H PRN SOB 10/08/24 Unknown History (2.5 mg base)/3 mL nebulization soln multivitamin (Daily Multi-Vitamin 1 tab PO DAILY SUPPL EMENT 10/08/24 Unknown History tablet) L.acidophil,salivari-Bifido 1 cap PO 3XD #0 caps 10/17 Unknown Rx bifidum-Strep thermoph 175 mg capsule dextromethorphan-guaifenesin 30 1 tab PO BID 7 days #1 4 tabs 10/17/24 Unknown Rx mg-600 mg tablet extended ifditnt33 hr (Mucinex DM) magnesium chloride 64 mg 128 mg (2 x 64 mg) PO BID #0 tabs 10/17/24 Unknown Rx (magnesium chloride) tablet,delayed release (Mag 64) thiamine HCl (vitamin B1) 100 mg 100 mg PO DAILY #30 t abs 10/17/24 Unknown Rx tablet atorvastatin 10 mg tablet 10 mg PO QHS 10/24/24 Unknow n History docusate sodium 100 mg capsule 100 mg PO DAILY 5 Unknown History (Col-Rite) ertapenem 1 gram solution for 1 g IV Q24H 10/24/24 Unk nown History injection hydroxyzine pamoate 25 mg capsule 25 mg PO TID 5 Unknown History (Vistaril) Allergy/AdvReac Type Severity Reaction Status Date / Time ibuprofen AdvReac Upset Verified 10/24/24 21:37 Stomach Family History Mother COPD (chronic obstructive pulmonary disease) Father Myocardial infarction Surgical History History of bowel resection S/P colonoscopy S/P endoscopy Social History household members: spouse Smoking Status: Former smoker alcohol intake: current alcohol intake frequency: 3 or more drinks per day Alcohol type: beer details: Patient states that he drinks a 12 pack/day of 12 ounce beers substance use type: does not use EXAM Physical Exam Const Vital Signs: 10/24/24 21:37 10/24/24 21:51 10/24/24 21:54 Temperature 97.4 F L 97.4 F L Temperature Source Oral Oral Pulse Rate 99 99 Respiratory Rate 20 H 18 Respiratory Effort Short of Breath Respiratory Depth Shallow Respiratory Pattern Tachypnea Blood Pressure 157/61 H 100/69 Blood Pressure Mean 93 79 Pulse Ox 97 91 Oxygen Delivery Method Room Air Room Air Oxygen Flow Rate (L/min) 10/24/24 22:48 10/25/24 00:00 10/25/24 01:00 Temperature 97.8 F Temperature Source Oral Pulse Rate 94 88 82 Respiratory Rate 22 H 27 H 16 Respiratory Effort Respiratory Depth Respiratory Pattern Blood Pressure 114/67 98/70 151/119 H Blood Pressure Mean 82 79 129 Pulse Ox 94 91 94 Oxygen Delivery Method Nasal Cannula Nasal Cannula Nasal Cannula Oxygen Flow Rate (L/min) 2 4 2 [facility] MDM Narrative Medical decision making narrative: HISTORY OF PRESENT ILLNESS: Chief complaint: Altered mental status 73-year-old male history of ulcerative colitis, regular altered mental status, alcohol abuse, GI bleed, hyperlipidemia presents with per nurse, patient is altered. Per EMS he is mid breast on the right lower lobe with wheezing. Patient currently on IV antibiotics for pneumonia since October 20. Notes patient removed PICC line tonight. Patient denies any specific complaints. REVIEW OF SYSTEMS: Pertinent positives: Shortness of breath, confusion Pertinent negatives: Fever PHYSICAL EXAM: Nursing triage notes reviewed, Vital signs reviewed Constitutional: please see mdm HENT: MMM Eyes: Pupils equal round and reactive to light, Extraocular muscles intact Neck: No stridor, no JVD, full neck ROM Lungs: scattered rhonchi throughout, diminished breath sounds on the right., No wheezing or rales. No increased work of breathing, no conversational dyspnea, no accessory muscle use, no nasal flaring. No respiratory distress noted Heart: Regular rate and rhythm, No murmurs, No rubs and No gallops, 2+ distal pulses (radial, femoral, posterior tibial) in all extremities Abdomen: Soft, there is no tenderness, rigidity, rebound or guarding, no obvious peritoneal signs, no palpable pulsatile abdominal masses, no auscultated abdominal bruit : No CVAT Extremities: No edema Neuro: Patient is alert, oriented to person but not place or time. (Baseline mental status apparently alert and oriented x 3). No new lateralizing findings noted Skin: No rash or lesions noted MEDICAL DECISION MAKING: Chief Complaint: please see HPI External records reviewed: Reviewed recent ED admission. Reviewed recent discharge summary. During his hospital stay he was diagnosed right middle lobe cavitary pneumonia. Echo October 09 shows EF 65%. Per ID recommendations patient was to continue IV ertapenem for 6 weeks. PICC line was placed at that time Factors affecting care: as per HPI Social determinants of health: [facility] resident History obtained from others: EMS Consults: internal medicine (Dr. Melgar) [facility] Narrative: The patient was initially hemodynamically stable, afebrile, nontoxic-appearing saturating 97% on room air. Exam with some slight increased work of breathing, diminished breath sounds on the right. I considered the following differential diagnosis: ICH, metabolic infectious encephalopathy, CO2 retention, PE I obtained a broad lab and imaging workup to further elucidate etiology of the patient's complaints ALL IMAGES (IF OBTAINED) HAVE BEEN PERSONALLY REVIEWED AND INTERPRETED BY MYSELF. EKG with normal sinus rhythm rate of 97, normal, prolonged QT interval 498, no STEMI or other ischemic changes, no sign of heart strain VBG without evidence of CO2 retention, no evidence of metabolic acidosis BNP within normal limit suggestive no heart failure Initial troponin negative CBC without leukocytosis to suggest exacerbation, noted baseline anemia, no thrombocytopenia CMP without evidence of acute kidney injury, significant electrolyte abnormality, anion gap to suggest end organ hypo-perfusion, no evidence of metabolic acidosis with a normal bicarbonate, no evidence of hepatobiliary obstructive pathology. Urinalysis shows no evidence of urinary inflammation suggestive of UTI CT of the chest showed no pulmonary infectious etiology, no PE CT scan of the brain showed no evidence of obvious ICH Given patient is currently on IV antibiotic regiment (ertapenem) and he has no PICC line he requires admission for IV access, IV antibiotics. Discussed with hospitalist The patient and/or family, caregivers express understanding. The patient and/or family, caregivers agrees with the plan. Shared decision making: I will have a discussion with the patient and or visitors regarding risk/benefits of further testing or admission. They will be made aware of of the risk/benefits inherent in this decision they will be given the opportunity to voice understanding. Total critical care time today provided was at least 0 minutes. This excludes separately billable procedures. Critical care time (if documented) is secondary to the patient having high probability of clinically significant/life threatening deterioration in the patient's condition which required my urgent intervention. Impression: 1. Shortness of breath 2. Altered mental status 3. Pneumonia Dispo: Admit to [facility] This note was generated with Docstoc dictation software. It may contain incorrect words, spelling, and punctuation that were not noted in review of the chart prior to signing. Lab Data Labs: Laboratory Results - last 24 hr 10/24/24 10/24/24 22:26 23:00 WBC 8.3 RBC 4.11 L Hgb 11.8 L Hct 37.2 L MCV 90.5 MCH 28.7 MCHC 31.7 L RDW Std Deviation 51.1 H RDW Coeff of Janice 15.8 H Plt Count 213 MPV 9.3 Immature Gran % (Auto) 3.800 H Neut % (Auto) 76.1 H Lymph % (Auto) 13.2 L Brantley % (Auto) 6.0 Eos % (Auto) 0.4 Baso % (Auto) 0.5 Absolute Neuts (auto) 6.4 Absolute Lymphs (auto) 1.10 Nucleated RBC % 0 Sodium 140 Potassium 3.8 Chloride 105 Carbon Dioxide 24.4 Anion Gap 11 BUN 9 Creatinine 0.50 L Estim Creat Clear Calc 74.91 Est GFR (MDRD) Non-Af 108 BUN/Creatinine Ratio 18.2 Glucose 77 Calcium 8.8 Total Bilirubin 0.44 AST 22 ALT 16 Alkaline Phosphatase 98 Troponin T High Sens 43 H NT pro BNP II 177 Total Protein 6.7 Albumin 2.7 L Globulin 4.0 Albumin/Globulin Ratio 0.7 L Urine Color Yellow Urine Clarity Clear Urine pH 7.0 Ur Specific Higden 1.010 Urine Protein Negative Urine Glucose (UA) Normal Urine Ketones Negative Urine Occult Blood Negative Urine Nitrite Negative Urine Bilirubin Negative Urine Urobilinogen Normal Ur Leukocyte Esterase Negative ABG Data ABG results: ABG 10/24/24 23:17 Specimen Type [place] Sample Site Not entered O2 % 2.0 VBG pH 7.45 H VBG pO2 32 VBG HCO3 30 H VBG Total CO2 31 VBG O2 Sat (Calc) 64 VBG Base Excess 6 H POC Mix VBG pCO2 Pt Tmp 43.2 O2 Delivery Device Cannula Radiography Diagnostic Testing: Clinical Impression(s) from Imaging Studies Brain CT 10/24/24 22:21 IMPRESSION: No intracranial hemorrhage, mass effect or CT evidence of large vascular territory acute infarct. Encephalomalacia inferior right supraorbital frontal lobe again noted. Reading Location: [facility] Chest CTA 10/24/24 22:21 IMPRESSION: Motion artifact limits the subsegmental evaluation. Otherwise no evidence of filling defect to suggest pulmonary embolism. Overall the pulmonary picture appears mildly increased as described in detail above and may represent a blooming effect of interval treatment with mildly more patchy areas of opacity in the lungs, mild increase in nonocclusive airway possibly mucus, secretions and increase in size of air-fluid levels associated with cavities as above. Recommend clinical correlation and continued follow-up. Reading Location: [facility] Discharge Plan Triage Chief Complaint: Alt LOC ED Provider: Neel Crandall Dx/Rx/DC Orders Primary Care Provider: Tj Watters
--- NOTE | 2024-10-24 22:21 | CT_ITS ---
PROCEDURE: BRAIN/HEAD WITHOUT CONTRAST 10/24/2024 REASON FOR EXAM: AMS TECHNIQUE: Head CT without intravenous contrast. Coronal and Sagittal reconstruction series were provided. One or more dose reduction techniques were used (e.g., Automated exposure control, adjustment of the mA and/or kV according to patient size, use of iterative reconstruction technique. RADIATION DOSE SUMMARY: CTDlvol: 44.99 mGy DLP: 745.49 mGycm COMPARISON: 10/08/2024 FINDINGS: No intracranial hemorrhage, mass effect or CT evidence of large vascular territory acute infarct. The ventricles are unchanged in size and remain midline. Encephalomalacia inferior right supraorbital frontal lobe again noted. Volume loss. Possible cerumen mostly filling the left external auditory canal again noted, clinically correlate. The mastoids and visualized orbits and paranasal sinuses appear within limits. Old nasal fracture deformity again seen. Bilateral parasellar carotid calcification again noted. CT/Brain/Head without Contrast IMPRESSION: No intracranial hemorrhage, mass effect or CT evidence of large vascular territ ory acute infarct. Encephalomalacia inferior right supraorbital frontal lobe again noted. Reading Location: [id number]
--- NOTE | 2024-10-24 22:21 | CT_ITS ---
PROCEDURE: CTA CHEST W/WO CONTRAST 10/24/2024 REASON FOR EXAM: SOB TECHNIQUE: CTA axial imaging of the chest with intravenous contrast. Coronal and Sagittal reconstruction series were provided. 3D, 3D post processing, 3D reconstructions, Maximum intensity projection (MIPs) Volume rendering and Shaded surface rendering was provided. PATIENT PREPARATION: Per protocol CONTRAST: Patient was administered 2 injections with note of IV dysfunction, disconnection, possible infiltrating on the 1st injection. 2 injections of 100 cc Isovue 370 contrast One or more dose reduction techniques were used (e.g., Automated exposure control, adjustment of the mA and/or kV according to patient size, use of iterative reconstruction technique). RADIATION DOSE SUMMARY: CTDlvol: 11.64 mGy DLP: 800 mGycm . COMPARISON: 10/09/2024 FINDINGS: Motion artifact limits the subsegmental evaluation. Otherwise no evidence of filling defect to suggest pulmonary embolism. Ectatic appearing thoracic aorta appears within limits. Atherosclerotic calcifications noted. Visualized great vessels appear within limits. Mild appearing coronary calcifications noted. No pericardial or pleural effusion seen. Limited images of the upper abdomen appear unremarkable. Previously a small amount of dependent frothy material is seen in the lower trachea on the prior study and bronchus intermedius. Currently more nonocclusive frothy appearing material is seen dependently left mainstem bronchus less than the mid to distal bronchus intermedius and posterior basal division airway, axial 116 series 5 may represent secretions, mucous or less likely aspirate. The central airways appear patent. Overall the appearance of the pulmonary parenchyma with areas of acute on chronic appearing patchy multifocal bilateral upper zone predominant airspace opacities with areas of consolidation and bilateral bronchiectasis is mildly increased in appearance as previously reported. Large thick-walled cavitary areas left upper lobe and right middle lobe again noted now with a more wet appearance, larger component of air-fluid level within the cavity. Bilateral shoulder osteoarthrosis. Spondylosis. CT/CTA Chest W/WO Contrast IMPRESSION: Motion artifact limits the subsegmental evaluation. Otherwise no evidence of fi lling defect to suggest pulmonary embolism. Overall the pulmonary picture appears mildly increased as described in detail a chidi and may represent a blooming effect of interval treatment with mildly more patchy areas of opacity in the lungs, mild increase in nonocclusive airway possibly mucus, secretions and increase in size of air-fluid levels associated with cavities as above. Recommend clinical correlation and continued follow-up. Reading Location: [id number]
--- NOTE | 2024-10-24 22:22 | EKG12_ITS ---
Test Reason : DYSRHYTHMIA Blood Pressure : */* mmHG Vent. Rate : 97 BPM Atrial Rate : 97 BPM P-R Int : 112 ms QRS Dur : 96 ms QT Int : 386 ms P-R-T Axes : 67 20 56 degrees QTcB Int : 490 ms Normal sinus rhythm Normal ECG Confirmed by Edin Fernando ([id number]), food expeditor CARMELO FOREMAN ([id number]) on 10/27/2024 6:56:28 AM Referred By: Confirmed By: Edin Fernando
[2024-10-24 22:43] LABS: Absolute Neutrophil Count 6.4 X10^3/uL (2.0-7.7); Basophil# 0.04 X10^3/uL; Basophil% 0.5 % (0-1); Eosinophil# 0.03 X10^3/uL; Eosinophils% 0.4 % (0-5); Hematocrit 37.2 % (40-54); Hemoglobin 11.8 g/dL (13.0-16.5); Lymphocyte % 13.2 % (19-41); Mean Corp Hgb Conc 31.7 g/dL (32-36); Mean Corpuscular Hgb 28.7 pg (27.0-32.0); Mean Corpuscular Volume 90.5 fL (80-94); Mean Platelet Vol. 9.3 fl (6.2-12.0); NRBC Flagged by Analyzer 0 % (0-5); Neutrophil # 6.35 X10^3/uL (2.7-7.7); Neutrophil % 76.1 % (47-70); Platelet Count 213 K/mm3 (150-450); RBC Distribution Width CV 15.8 % (11.6-14.6); RBC Distribution Width SD 51.1 fl (35.1-43.9); Red Blood Count 4.11 M/mm3 (4.6-6.2); White Blood Count 8.3 K/mm3 (4.4-11.0)
[2024-10-24 22:48] VITALS: BP 114/67; PULSE 94; RESP 22; TEMP 36.6; O2SAT 94
[2024-10-24] MEDS: 0.9% Normal Saline (1000mL) 1,000 ML 1000 ML IV (23:06)
[2024-10-24 23:07] LABS: Color, Urine Yellow (Yellow); Glucose, Dipstick Normal (Normal); Ketone-Dipstick Negative (Negative); Leukocyte Esterase-Dipstick Negative /ul (Negative); Nitrite-Dipstick Negative (Negative); Occult Blood-Urine Negative /ul (Negative); Protein-Dipstick Negative (Negative); Urine Bilirubin Dipstick Negative (Negative); Urine Clarity Clear (Clear); Urine Urobilinogen Normal (Normal)
[2024-10-24 23:09] LABS: ALB/GLOB Ratio 0.7 RATIO (0.9-2.4); AST(SGOT) 22 U/L (<=37); Alanine Aminotransfer ALT/SGPT 16 U/L (<=46); Albumin, Serum 2.7 g/dL (3.4-4.8); Alkaline Phosphatase 98 U/L (40-129); Anion Gap 11 (5-15); BUN 9 mg/dL (4-19); BUN/Creat Ratio 18.2 RATIO (10-20); Calcium,Total 8.8 mg/dL (7.6-11.0); Carbon Dioxide 24.4 mmol/L (21.0-32.0); Chloride 105 mmol/L (98-108); EST Glomerular Filtration Rate 108 (>60); Estimated Creatinine Clearance 74.91 ml/min (50-250); Glucose 77 mg/dL (70-99); Potassium 3.8 mmol/L (3.3-5.1); Pro- Brain NATRIURETIC PEPTIDE 177 pg/mL (<=900); Protein, Total 6.7 g/dL (5.9-8.4); Sodium Level 140 mmol/L (133-145); Total Bilirubin 0.44 mg/dL (0.00-1.30); Troponin T High Sensitivity 43 ng/L (<=22)
[2024-10-24 23:21] LABS: Blood Gas Specimen Type VEN; O2 Delivery Device Cannula; SITE Not entered; VBG BASE EXCESS 6 mmol/L (-1.0-3.5); VBG Bicarbonate 30 mmol/L (22-26); VBG PO2 32 mmHg (25-40); VBG SO2 64 % (50-70); VBG TCO2 31 mmol/L (23-33); VBG pCO2 43.2 mmHg (41-51); VBG pH 7.45 (7.32-7.42)
[2024-10-25] VITALS (9 sets, daily range): BP systolic 95–151; BP diastolic 40–119; PULSE 82–91; RESP 15–27; TEMP 36.3–36.9; O2SAT 91–100; BMI 19.4
--- NOTE | 2024-10-25 01:36 | HP.PCM.HOS_ITS ---
[facility] Date of Admission: 10/25/24 Date of Service: 10/25/24 Chief Complaint: Pulled out PICC at [facility]. HPI Narrative NISHA MARTINS, is a 74 M with a past medical history of hyperlipidemia; on atorvastatin and colestipol, DM-2; of unknown control on insulin glargine 8U daily plus insulin lispro SSI TID AC, diabetic neuropathy; on gabapentin, history of recurrent Clostridium difficile colitis; previously treated with oral vancomycin, history of ulcerative colitis; on mesalamine, prednisone and dicyclomine, history of diverticulitis, GERD; on pantoprazole, chronic anemia; with history of GI bleed, history of bowel resection, history of IBS, RLS, history of EtOH abuse; with patient previously drinking ~12 beers daily, former tobacco abuse; with subsequent COPD, history of hypovolemic hyponatremia and recent admission here from August 21, 2024 to August 24, 2024 for Sepsis attributed to Pneumonia and AE of ulcerative colitis in the setting of a partially treated Clostridium difficile infection along with hyponatremia with patient ultimately transferred to [facility] followed by howard recent admission here from October 08, 2024 to October 17, 2024 for treatment of multiple cavitary lesions (primarily in the RML) with ground-glass opacities and lbgv-te-aoyibpvl emphysematous disease seen on CT due to suspected recurrent aspiration on top of chronic tobacco abuse with suspected superimposed COPD complicated by acute metabolic encephalopathy with patient having underwent neurology consultation, MRI which was negative for CVA, EEG was unremarkable with patient having received B12, folate and thiamine supplementation with patient then noted to have sputum culture positive for MSSA patient then discharged to receive ertapenem IV for 6 weeks via PICC line with patient then sent to [facility] who now re-presents presents to [facility] ER with the staff at his F complaining of altered mental status with patient having pulled his PICC line late out in the evening of October 24, 2024, so he was sent in for further evaluation and treatment. Mr. Martins is not a fully-reliable historian at this time so information was gathered from chart, medical staff and computer. The patient is alert and oriented to self and he denies complaints and has a nontoxic appearance though he is obviously confused. His confusion was fully worked up last admission with discharge hospitalist noting his mental status had improved. According to the records he was noted to have mild shortness of breath and confusion. There was no report of fever, chills, nausea, vomiting, diarrhea, constipation, abdominal pain, chest pain, slurred speech, headache or rash. In the ER he was noted to have a CTA of the chest with and without IV contrast that revealed no filling defect to suggest pulmonary embolism with overall pulmonary picture appearing mildly increased as described in detail and may represent a 'blooming effect' of interval treatment with more patchy areas of opacity in the lungs with mild increase nonocclusive airway possibly mucus secretions and increased size of air-fluid levels of associated cavities as above with recommended clinical correlation and continued follow-up. He underwent a VBG which showed pH 7.45/ PaCO2 31 mmol/L/ PaO2 32 mmHg/HCO3 30 mmol/L at 64% on 2L NC with otherwise essentially unremarkable CBC, CMP and UA. He also underwent a CT scan of the brain without contrast that revealed no acute intracranial hemorrhage, mass effect or CT evidence of large vascular territory acute infarct. Encephalomalacia of the inferior Right supraorbital frontal lobe again noted. This patient is suspected to have recurrent aspiration pneumonia due to his nwxbyu-udy-[id number] mental status that is still progressed and spite of PICC line and IV ertapenem with the patient having been on IV antibiotics for the past 15 days solid indicating this condition is unlikely to fully improve because underlying mechanism of intermittent aspiration is apparently continued unabated. I spoke with the ER physician at length about this patient due to his medical complexity and failure to improve in spite of aggressive medical care indicating it may be prudent to place palliative care consultation, which is pending in the a.m. He was then admitted to the general medical floor under observation status so his PICC line can be replaced or a stay that is expected to be less than 2 midnights. [facility] Medical History (Updated 10/25/24 @ 19:[address] Khris Landrum, DO) Cavitary pneumonia Abnormal abdominal CT scan Weakness Colitis Hypertension Irritable bowel Restless legs Diabetes GERD (gastroesophageal reflux disease) GI bleed Ulcerative colitis Alcohol abuse Arthritis Former smoker High cholesterol Diverticulitis Home Medications ?Medication ?Instructions ?Recorded ?Last Taken ?Type albuterol sulfate 90 mcg/actuation 1 inh inhalation Q6 H PRN shortness 02/26/21 Unknown Rx aerosol inhaler of breath or wheezing #8.5 g isis pregabalin 150 mg capsule 150 mg PO BID PAIN 06/19/24 07/27/24 History dicyclomine 10 mg capsule 10 mg PO TIDAC COLITIS #60 c aps 07/23/24 07/27/24 Rx mesalamine 500 mg capsule,extended 500 mg PO BID pain/ inflammation 30 07/23/24 07/27/24 Rx release (Pentasa) days #60 caps pantoprazole 40 mg tablet,delayed 40 mg PO DAILY GERD #30 tabs 07/23/24 07/27/24 Rx release acetaminophen 325 mg tablet 650 mg PO Q6H PRN fever or pain 10/08/24 Unknown History (Aminofen) collagenase clostridium histo. 250 1 applic topical [facility] 10/08/24 Unknown History unit/gram topical ointment (Santyl) dextromethorphan-guaifenesin 10 10 ml PO Q8H PRN cough 10/08/24 Unknown History mg-100 mg/5 mL oral syrup (Antitussive DM) hydrocortisone acetate 25 mg 25 mg NM Q12H MUCOUS MEMB JOHNNY 10/08/24 Unknown History rectal suppository ipratropium 0.5 mg-albuterol 3 mg 3 ml inhalation Q8H PRN SOB 10/08/24 Unknown History (2.5 mg base)/3 mL nebulization soln multivitamin (Daily Multi-Vitamin 1 tab PO DAILY SUPPL EMENT 10/08/24 Unknown History tablet) L.acidophil,salivari-Bifido 1 cap PO 3XD probotoic #0 caps 10/17/24 Unknown Rx bifidum-Strep thermoph 175 mg capsule dextromethorphan-guaifenesin 30 1 tab PO BID congestio n 7 days #14 10/17/24 Unknown Rx mg-600 mg tablet extended tabs [id number] hr (Mucinex DM) magnesium chloride 64 mg 128 mg (2 x 64 mg) PO BID Unknown Rx (magnesium chloride) supplement #0 tabs tablet,delayed release (Mag 64) thiamine HCl (vitamin B1) 100 mg 100 mg PO DAILY suppl ement #30 tabs 10/17/24 Unknown Rx tablet atorvastatin 10 mg tablet 10 mg PO QHS hld 10/24/24 Un known History docusate sodium 100 mg capsule 100 mg PO DAILY bowel 0 10/24/24 Unknown History (Col-Rite) ertapenem 1 gram solution for 1 g IV Q24H atb 10/24/24 Unknown History injection hydroxyzine pamoate 25 mg capsule 25 mg PO TID anxiety 10/24/24 Unknown History (Vistaril) Allergy/AdvReac Type Severity Reaction Status Date / Time ibuprofen AdvReac Upset Verified 10/24/24 21:37 Stomach Family History Mother COPD (chronic obstructive pulmonary disease) Father Myocardial infarction Surgical History History of bowel resection S/P colonoscopy S/P endoscopy Social History household members: spouse Smoking Status: Former smoker alcohol intake: current alcohol intake frequency: 3 or more drinks per day Alcohol type: beer details: Patient states that he drinks a 12 pack/day of 12 ounce beers substance use type: does not use ROS ROS Narrative Ana M systems was not possible due to this patient's altered mental status. Vital Signs Vital Signs Vital Signs: 10/24/24 21:37 10/24/24 21:51 10/24/24 21:54 Temperature 97.4 F L 97.4 F L Temperature Source Oral Oral Pulse Rate 99 99 Respiratory Rate 20 H 18 Respiratory Effort Short of Breath Respiratory Depth Shallow Respiratory Pattern Tachypnea Blood Pressure 157/61 H 100/69 Blood Pressure Mean 93 79 Pulse Ox 97 91 Oxygen Delivery Method Room Air Room Air Oxygen Flow Rate (L/min) 10/24/24 22:48 10/25/24 00:00 10/25/24 01:00 Temperature 97.8 F Temperature Source Oral Pulse Rate 94 88 82 Respiratory Rate 22 H 27 H 16 Respiratory Effort Respiratory Depth Respiratory Pattern Blood Pressure 114/67 98/70 151/119 H Blood Pressure Mean 82 79 129 Pulse Ox 94 91 94 Oxygen Delivery Method Nasal Cannula Nasal Cannula Nasal Cannula Oxygen Flow Rate (L/min) 2 4 2 Weight Weight: 141 lb 15.643 oz Body Mass Index (BMI) 20.3 Physical Exam Const alert and no apparent distress Constitutional Narrative: Patient is confused this is chronically ill appearance. General Appearance: cooperative Orientation / Consciousness: confused HEENT normocephalic, head/scalp atraumatic, hearing grossly normal bilaterally and moist oral mucous membranes Eyes PERRL and EOMs intact bilaterally Neck no lymphadenopathy and supple Resp Resp Narrative: Diminished breath sounds over right lower lobe with scattered rhonchi throughout. No respiratory distress, labored respirations, conversational dyspnea or increased work of breathing noted. Auscultation: rhonchi Cardio regular rate and regular rhythm GI normal to inspection, nondistended, normoactive bowel sounds, soft to palpation, non-tender and non-distended Extremity normal to inspection, full ROM and no clubbing, cyanosis or edema Skin Skin Narrative: Patient has no evidence of rash, abscess, wounds or jaundice Neuro CN's II-XII intact bilaterally, moves all extremities and no focal motor deficits Sensorium / Orientation: awake, alert and oriented to person Speech: speech normal Psych affect normal Results Medical Records Data Attestation: I reviewed the patient's medical records Lab / Micro Data Attestation: I reviewed the patient's lab results. 10/25/24 06:00 10/25/24 06:00 Labs: Laboratory Results - last 24 hr 10/24/24 22:26: WBC 8.3, RBC 4.11 L, Hgb 11.8 L, Hct 37.2 L, MCV 90.5, MCH 28.7, MCHC 31.7 L, RDW Std Deviation 51.1 H, RDW Coeff of Janice 15.8 H, Plt Count 213, MPV 9.3, Immature Gran % (Auto) 3.800 H, Neut % (Auto) 76.1 H, Lymph % (Auto) 13.2 L, [place] % (Auto) 6.0, Eos % (Auto) 0.4, Baso % (Auto) 0.5, Absolute Neuts (auto) 6.4, Absolute Lymphs (auto) 1.10, Nucleated RBC % 0, Sodium 140, Potassium 3.8, Chloride 105, Carbon Dioxide 24.4, Anion Gap 11, BUN 9, C reatinine 0.50 L, Estim Creat Clear Calc 74.91, Est GFR (MDRD) Non-Af 108, BUN/Creatinine Ratio 18.2, Glucose 77, Calcium 8.8, Total Bilirubin 0.44, AST 22, ALT 16, Alkaline Phosphatase 98, Troponin T High Sens 43 H, NT pro BNP II 177, Total Protein 6.7, Albumin 2.7 L, Globulin 4.0, Albumin/Globulin Ratio 0.7 L 10/24/24 23:00: Urine Color Yellow, Urine Clarity Clear, Urine pH 7.0, Ur Specific [place] 1.010, Urine Protein Negative, Urine Glucose (UA) Normal, Urine Ketones Negative, Urine Occult Blood Negative, Urine Nitrite Negative, Urine Bilirubin Negative, Urine Urobilinogen Normal, Ur Leukocyte Esterase Negative Micro: Microbiology 10/24/24 22:38 Mucosa - Nose SARS-CoV-2, Influenza & RSV (PCR) - Final ABG Data ABG results: ABG 10/24/24 23:17 Specimen Type [place] Sample Site Not entered O2 % 2.0 VBG pH 7.45 H VBG pO2 32 VBG HCO3 30 H VBG Total CO2 31 VBG O2 Sat (Calc) 64 VBG Base Excess 6 H POC Mix VBG pCO2 Pt Tmp 43.2 O2 Delivery Device Cannula Imaging Radiology Impression Brain CT 10/24/24 22:21 IMPRESSION: No intracranial hemorrhage, mass effect or CT evidence of large vascular territory acute infarct. Encephalomalacia inferior right supraorbital frontal lobe again noted. Reading Location: [facility] Chest CTA 10/24/24 22:21 IMPRESSION: Motion artifact limits the subsegmental evaluation. Otherwise no evidence of filling defect to suggest pulmonary embolism. Overall the pulmonary picture appears mildly increased as described in detail above and may represent a blooming effect of interval treatment with mildly more patchy areas of opacity in the lungs, mild increase in nonocclusive airway possibly mucus, secretions and increase in size of air-fluid levels associated with cavities as above. Recommend clinical correlation and continued follow-up. Reading Location: [facility] Assessment & Plan Assessment/Plan (1) PIC line (peripherally inserted central catheter) removal: (2) Cavitary pneumonia: (3) Altered mental status: QUALIFIERS: Altered mental status type: disorientation Qualified Code(s): R41.0 - Disorientation, unspecified (4) History of tobacco abuse: (5) History of alcohol abuse: PLAN: Plan 1. Patient pulled out PICC line needed to give IV or ertapenem to complete a planned 6-week course of therapy - Admit to general medical floor under observation status. Continue IV ertapenem via peripheral IV until PICC line can be reestablished. PICC line should be secured is much as possible to prevent recurrence of self-discontinuation. 2. Kuwiy-hb-ardbzeg metabolic encephalopathy complicating #1 - Patient underwent full neurological workup during his recent previous admission. We will stop hydroxyzine as this agent may be causative in this issue with risks outweigh any potential benefit. We will check UDS and HILARIA but otherwise no further workup will be undertaken at this time with patient having no complaints and otherwise clinically at his baseline at this time. 3. Recent admission here from October 08, 2024 to October 17, 2024 for treatment of multiple cavitary lesions (primarily in the RML) with ground-glass opacities and hyek-hz-djyeoprb emphysematous disease seen on CT due to suspected recurrent aspiration on top of chronic tobacco abuse with suspected superimposed COPD complicated by acute metabolic encephalopathy with patient having underwent neurology consultation, MRI which was negative for CVA, EEG was unremarkable with patient having received B12, folate and thiamine supplementation with patient then noted to have sputum culture positive for MSSA patient then discharged to receive ertapenem IV for 6 weeks via PICC line with patient then sent to ECF with continued pattern of readmission due to suspected recurrent aspiration episodes with patient's pneumonia looking slightly worse on CT this admission with 'blooming effect' indicating relative failure of aggressive medical therapy compounding #1 & #2 - We will consult speech therapy for formal speech evaluation with suspected recurrent aspiration events causing his pneumonia to be resistant to treatment without appreciated in advance. Finally, we we will consult palliative care to see this patient on rounds in the a.m. for further recommendations regarding end-of-life care with help appreciated in advance. 4. Recent admission here from August 21, 2024 to August 24, 2024 for Sepsis attributed to Pneumonia and AE of ulcerative colitis in the setting of a partially treated Clostridium difficile infection along with hyponatremia with patient ultimately transferred to [facility] adding to the medical complexity of #1 - #3 - Noted with patient extending into the third month of an ongoing pattern of serial readmission. 5. History of EtOH abuse; with patient previously drinking ~12 beers daily with suspected permanent brain damage amplifying the pathology of #1 - #4 - Noted. Check HILARIA. Otherwise, continue vitamins and supplements as previous. 6. Hyperlipidemia; on atorvastatin and colestipol - Maintain current treatment. 7. DM-2; of unknown control on insulin glargine 8U daily plus insulin lispro SSI TID AC plus diabetic neuropathy; on gabapentin - Keep NPO except ice chips, sips and medications until Speech fromal Therapy swallowing evaluation has been completed. 8. History of recurrent Clostridium difficile colitis; previously treated with oral vancomycin - Noted. 9. History of ulcerative colitis; on mesalamine, prednisone and dicyclomine - Stable with no evidence of acute flare at this time. 10. History of diverticulitis - Noted. 11. GERD; on pantoprazole - Resume PPI as before. 12. Chronic anemia; with history of GI bleed - Noted with no evidence of recurrence. 13. History of bowel resection - Noted. 14. History of IBS - Stable. 15. RLS - Stable. 16. Former tobacco abuse; with subsequent COPD - Noted with no evidence of acute flare at this time. 17. History of hypovolemic hyponatremia - Resolved with serum sodium of 140 mmol/L present on admission. 18. DVT prophylaxis - Heparin 5,000U sq BID plus SCD's. Total time: Approximately (but not less than) 85 minutes. Charges/Coding Visit Charges OBSV E&M: 77120 Observ/hosp same date L3
--- NOTE | 2024-10-25 01:50 | ED.RN ---
This RN called report to Igor brown [facility] about the patient's plan of care and admission.
[2024-10-25 02:32] LABS: Magnesium 1.9 mg/dL (1.5-2.2)
[2024-10-25] MEDS: 0.9% Normal Saline (1000mL) 1,000 ML 70 ML IV (03:07)
[2024-10-25 03:11] LABS: Alcohol, Blood (Medical)-Serum < 10.1 mg/dL (<=10.0)
[2024-10-25] MEDS: 0.9% Saline Lock 10 ML Syringe IV (03:47)
[2024-10-25] MEDS: Dextrose 5%/0.9% NaCl 1,000 ML 70 ML IV ×2 (04:00→19:31)
[2024-10-25 06:28] LABS: Bedside Glucose 66 mg/dL (74-106)
[2024-10-25 07:11] LABS: Bedside Glucose 81 mg/dL (74-106)
[2024-10-25 07:23] LABS: Absolute Lymphocyte Count 1.05 X10^3/uL (0.83-4.51); Absolute Neutrophil Count 5.1 X10^3/uL (2.0-7.7); Basophil# 0.02 X10^3/uL; Basophil% 0.3 % (0-1); Eosinophil# 0.02 X10^3/uL; Eosinophils% 0.3 % (0-5); Hematocrit 32.2 % (40-54); Hemoglobin 10.1 g/dL (13.0-16.5); Lymphocyte # 1.05 X10^3/ul (0.83-4.51); Lymphocyte % 15.4 % (19-41); Mean Corp Hgb Conc 31.4 g/dL (32-36); Mean Corpuscular Hgb 28.4 pg (27.0-32.0); Mean Corpuscular Volume 90.4 fL (80-94); Mean Platelet Vol. 9.3 fl (6.2-12.0); Monocyte# 0.46 X10^3/uL; Monocyte% 6.7 % (0-10); NRBC Flagged by Analyzer 0 % (0-5); Neutrophil # 5.07 X10^3/uL (2.7-7.7); Neutrophil % 74.4 % (47-70); Platelet Count 192 K/mm3 (150-450); RBC Distribution Width CV 15.7 % (11.6-14.6); RBC Distribution Width SD 51.3 fl (35.1-43.9); Red Blood Count 3.56 M/mm3 (4.6-6.2); White Blood Count 6.8 K/mm3 (4.4-11.0)
[2024-10-25 07:41] LABS: Hemoglobin A1c 6.1 % (<=5.6)
[2024-10-25 07:51] LABS: ALB/GLOB Ratio 0.7 RATIO (0.9-2.4); AST(SGOT) 17 U/L (<=37); Alanine Aminotransfer ALT/SGPT 16 U/L (<=46); Albumin, Serum 2.4 g/dL (3.4-4.8); Alkaline Phosphatase 83 U/L (40-129); Anion Gap 11 (5-15); BUN 8 mg/dL (4-19); BUN/Creat Ratio 18.5 RATIO (10-20); Calcium,Total 8.5 mg/dL (7.6-11.0); Carbon Dioxide 22.3 mmol/L (21.0-32.0); Chloride 107 mmol/L (98-108); Creatinine, Serum 0.45 mg/dL (0.70-1.20); EST Glomerular Filtration Rate 111 (>60); Estimated Creatinine Clearance 71.77 ml/min (50-250); Globulin 3.4 g/dL (2.2-4.2); Glucose 82 mg/dL (70-99); Phosphorus 3.9 mg/dL (2.7-4.5); Potassium 3.7 mmol/L (3.3-5.1); Protein, Total 5.8 g/dL (5.9-8.4); Sodium Level 140 mmol/L (133-145); Total Bilirubin 0.43 mg/dL (0.00-1.30)
[2024-10-25] MEDS: Docusate Sodium 100 MG Capsule PO (09:01)
[2024-10-25] MEDS: Zinc Sulfate 50 mg zinc (220 mg) ORAL capsule PO (09:01)
[2024-10-25] MEDS: Pantoprazole Sodium 40 MG Tablet PO (09:01)
[2024-10-25] MEDS: MESALAMINE 400 MG CAPSULE.DR PO ×2 (09:01→23:00)
[2024-10-25] MEDS: Ascorbic Acid 500 MG Tablet 1000 MG PO ×2 (09:01→17:21)
[2024-10-25] MEDS: Cholecalciferol (Vit D3) 125 MCG CAPSULE (5,000 UNITS) PO (09:02)
[2024-10-25] MEDS: Heparin Injection (Vial) 5,000 UNIT/ML VIAL 5000 UNIT SC ×2 (09:02→20:58)
[2024-10-25] MEDS: Thiamine Hydrochloride 100 MG Tablet PO (09:03)
[2024-10-25] MEDS: Multivitamins,Therapeutic Tablet 1 TABLET PO (09:03)
[2024-10-25] MEDS: Hydrocortisone 25 MG Suppository RC ×2 (09:03→23:00)
[2024-10-25] MEDS: guaiFENesin/D-Methorphan TAB.SR.12H 1 TABLET PO (09:04)
[2024-10-25] MEDS: Collagenase 30gm Tube 1 APPLIC TOPICAL (09:04)
[2024-10-25] MEDS: Magnesium Chloride 64 MG Delay Rel.Tablet 128 MG PO ×2 (09:04→23:00)
[2024-10-25] MEDS: Pregabalin 75 MG Capsule 150 MG PO (09:12)
[2024-10-25] MEDS: Ertapenem Sod 1 GM in 0.9% Normal Saline (50mL MB+) 50 ML IV (10:42)
[2024-10-25] MEDS: Dicyclomine 10 MG Capsule PO ×2 (10:47→17:21)
--- NOTE | 2024-10-25 10:59 | PN.HOSP_ITS ---
Subjective Subjective Poor historian. Denies shortness of breath. Objective Data Objective Data Vital Signs: Vital Signs Temp Pulse Resp BP Pulse Ox O2 Del Method O2 Flow Rate 36.4 C L 88 20 H 95/65 99 Nasal Cannula 2 10/25/24 08:34 10/25/24 08:34 10/25/24 08:34 10/25/24 08:34 10/25/24 08:34 10/25/24 09:25 10/25/24 09:25 Oxygen Flow Rate (L/min) 2 Oxygen Delivery Method Nasal Cannula Weight: 61.7 kg Body Mass Index (BMI) 19.4 Intake & Output: Intake and Output for Last 24 Hours 10/23/24 10/24/24 10/25/24 23:59 23:59 23:59 Intake Total 200 / 200 1047.83 / 1047.83 Balance 200 / 200 1047.83 / 1047.83 Lab / Micro Data 10/25/24 06:00 10/25/24 06:00 Labs: Laboratory Results - last 24 hr 10/24/24 22:26: WBC 8.3, RBC 4.11 L, Hgb 11.8 L, Hct 37.2 L, MCV 90.5, MCH 28.7, MCHC 31.7 L, RDW Std Deviation 51.1 H, RDW Coeff of Janice 15.8 H, Plt Count 213, MPV 9.3, Immature Gran % (Auto) 3.800 H, Neut % (Auto) 76.1 H, Lymph % (Auto) 13.2 L, [place] % (Auto) 6.0, Eos % (Auto) 0.4, Baso % (Auto) 0.5, Absolute Neuts (auto) 6.4, Absolute Lymphs (auto) 1.10, Nucleated RBC % 0, Sodium 140, Potassium 3.8, Chloride 105, Carbon Dioxide 24.4, Anion Gap 11, BUN 9, C reatinine 0.50 L, Estim Creat Clear Calc 74.91, Est GFR (MDRD) Non-Af 108, BUN/Creatinine Ratio 18.2, Glucose 77, Calcium 8.8, Magnesium 1.9, Total Bilirubin 0.44, AST 22, ALT 16, Alkaline Phosphatase 98, Troponin T High Sens 43 H, NT pro BNP II 177, Total Protein 6.7, Albumin 2.7 L, Globulin 4.0, A lbumin/Globulin Ratio 0.7 L 10/24/24 23:00: Urine Color Yellow, Urine Clarity Clear, Urine pH 7.0, Ur Specific [place] 1.010, Urine Protein Negative, Urine Glucose (UA) Normal, Urine Ketones Negative, Urine Occult Blood Negative, Urine Nitrite Negative, Urine Bilirubin Negative, Urine Urobilinogen Normal, Ur Leukocyte Esterase Negative 10/25/24 02:29: Ethyl Alcohol < 10.1 10/25/24 03:42: POC Glucose 66 L 10/25/24 06:00: WBC 6.8, RBC 3.56 L, Hgb 10.1 L, Hct 32.2 L, MCV 90.4, MCH 28.4, MCHC 31.4 L, RDW Std Deviation 51.3 H, RDW Coeff of Janice 15.7 H, Plt Count 192, MPV 9.3, Immature Gran % (Auto) 2.900 H, Neut % (Auto) 74.4 H, Lymph % (Auto) 15.4 L, [place] % (Auto) 6.7, Eos % (Auto) 0.3, Baso % (Auto) 0.3, Absolute Neuts (auto) 5.1, Absolute Lymphs (auto) 1.05, Nucleated RBC % 0, Sodium 140, Potassium 3.7, Chloride 107, Carbon Dioxide 22.3, Anion Gap 11, BUN 8, C reatinine 0.45 L, Estim Creat Clear Calc 71.77, Est GFR (MDRD) Non-Af 111, BUN/Creatinine Ratio 18.5, Glucose 82, Hemoglobin A1c 6.1 H, Calcium 8.5, Phosphorus 3.9, Total Bilirubin 0.43, AST 17, ALT 16, Alkaline Phosphatase 83, T otal Protein 5.8 L, Albumin 2.4 L, Globulin 3.4, Albumin/Globulin Ratio 0.7 L, TSH 1.350 10/25/24 06:53: POC Glucose 81 Micro: Microbiology 10/24/24 22:38 Mucosa - Nose SARS-CoV-2, Influenza & RSV (PCR) - Final ABG Data ABG results: ABG 10/24/24 23:17 Specimen Type [place] Sample Site Not entered O2 % 2.0 VBG pH 7.45 H VBG pO2 32 VBG HCO3 30 H VBG Total CO2 31 VBG O2 Sat (Calc) 64 VBG Base Excess 6 H POC Mix VBG pCO2 Pt Tmp 43.2 O2 Delivery Device Cannula Radiography Diagnostic Testing: Radiology Impression Brain CT 10/24/24 22:21 IMPRESSION: No intracranial hemorrhage, mass effect or CT evidence of large vascular territory acute infarct. Encephalomalacia inferior right supraorbital frontal lobe again noted. Reading Location: [facility] Chest CTA 10/24/24 22:21 IMPRESSION: Motion artifact limits the subsegmental evaluation. Otherwise no evidence of filling defect to suggest pulmonary embolism. Overall the pulmonary picture appears mildly increased as described in detail above and may represent a blooming effect of interval treatment with mildly more patchy areas of opacity in the lungs, mild increase in nonocclusive airway possibly mucus, secretions and increase in size of air-fluid levels associated with cavities as above. Recommend clinical correlation and continued follow-up. Reading Location: [facility] Physical Exam Const alert and no apparent distress Constitutional Narrative: oriented to self, place. Date = Aug 2024. Weak voice. HEENT head/scalp atraumatic Resp normal respiratory effort, no retractions, no use of accessory muscles and clear to auscultation bilaterally Cardio regular rate, regular rhythm, S1 normal heart sound and S2 normal heart sound GI normal to inspection, nondistended, normoactive bowel sounds, soft to palpation and non-tender Neuro Sensorium / Orientation: awake Assessment & Plan Assessment/Plan (1) PIC line (peripherally inserted central catheter) removal: PLAN: self-removal. Unclear if intent PICC to be replaced as he was to continue abx with ertapenem through 11/12 PLAN: Plan Cavitary lung lesions: TB ruled out. Was to continue IV ertapenem through 11/12. CTA chest mild increase overall. Too early to determine if treatment failure. Continue abx as previously prescribed. If worsening, then hospice consult should be consider. Will cancel hospice consult. UC: continue hydrocortisone CT and mesalamine Suspected dementia: recommend geriatric evaluation as outpt. complicates care and recovery. VTE prophylaxis: SQ heparin Charges/Coding Visit Charges Inpatient E&M: 75802 Subs Hosp L2
[2024-10-25 12:33] LABS: Bedside Glucose 121 mg/dL (74-106)
--- NOTE | 2024-10-25 13:14 | PCM.HOSP.N ---
Hospitalist Note Difficult to arouse. I went and saw the patient and he easily victorino and steps eye contact when interacted with him. Speech was difficult to understand. Patient's had called in the interim. I spoke with Nunu, his . Updated her on his current condition that he is stable but expressed concern for his long-term outlook as it appears that his pneumonia is actually getting worse despite the antibiotics but he still has 2 more weeks of antibiotics. I did encourage hospice which she and her are supposed to meet with hospice this coming Sunday but first desire to continue with medical therapy. She does want him to go to a different facility other than [facility]. Advance care planning: Spent additional 20 minutes where I discussed CODE STATUS with her. Explained to her that he is currently full code and I explained in detail that in the event of a cardiac arrest that he would likely not survive. I encouraged DNR Comfort Care arrest which he has been previously. She states that he states that he wants everything done and will defer to his previous sentiment. Told her that we would oblige but I also reinforced that is low likelihood of survival in the event of cardiac arrest. Therefore, patient will remain full code. Procedures Hospitalists Procedures: 88281 Advncd Care Plan 30 Min
[2024-10-25 13:16] LABS: Amphetamine Urine NEGATIVE (<1000 ng/mL); Barbiturate Urine NEGATIVE (< 200 ng/mL); Benzodiazepine Urine NEGATIVE (< 200 ng/mL); Buprenorphine Urine NEGATIVE (< 200 ng/mL); Cocaine Urine NEGATIVE (< 300 ng/mL); Fentanyl, Urine NEGATIVE; Methadone Urine NEGATIVE (< 300 ng/mL); Opiates Urine NEGATIVE (< 300 ng/mL); Oxycodone, Urine NEGATIVE (< 100 ng/mL); PCP Urine NEGATIVE (< 25 ng/mL); THC Urine NEGATIVE (< 50 ng/mL)
--- NOTE | 2024-10-25 13:56 | CASEMGMT ---
Addendum entered by Kamila Acuna 10/25/24 14:12: Social Work SW did ask about LW/POA, states she is pt's POA and is on the paper. SW did ask her to bring in the documents as able. MERCED Medina Original Note: Social Work As per RN, was to meet w/hospice on Sunday. Physician spoke w/ Nunu, at this time she has voiced she wants to look into a different prison. Pt has been at [facility]. SW called Nunu, spoke w/her about changing nursing homes. She would like to change nursing homes, confirms that pt does have [employer] insurance. SW explained will create a prison list of facilities that take his insurance, and leave it in the room for her, she will be here tomorrow. SW explained that the SW on Sunday will follow up. MAUREEN created in [facility] a list of prison facilities in network w/pt's insurance, in pt's preferred geographic area, and complete w/quality and resource use data. SW left the list in pt's room for pt's . SW will follow up on Sunday. MERCED Medina
[2024-10-25 18:01] LABS: Bedside Glucose 99 mg/dL (74-106)
[2024-10-25] MEDS: Atorvastatin Calcium 10 MG Tablet PO (22:00)
[2024-10-26 01:13] LABS: Bedside Glucose 90 mg/dL (74-106)
[2024-10-26 03:00] VITALS: BP 122/73; PULSE 89; RESP 15; TEMP 36.6; O2SAT 92
[2024-10-26] MEDS: Dicyclomine 10 MG Capsule PO ×3 (05:33→18:41)
[2024-10-26 06:00] VITALS: BMI 20.1
[2024-10-26 06:45] LABS: Bedside Glucose 85 mg/dL (74-106)
--- NOTE | 2024-10-26 07:18 | PCM.PN.HOSP ---
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 Objective Data Objective Data Vital Signs: Vital Signs Temp Pulse Resp BP Pulse Ox O2 Del Method O2 Flow Rate 36.6 C 89 15 122/73 H 92 Nasal Cannula 2 10/26/24 03:00 10/26/24 03:00 10/26/24 03:00 10/26/24 03:00 10/26/24 03:00 10/26/24 03:00 10/26/24 03:00 Oxygen Flow Rate (L/min) 2 Oxygen Delivery Method Nasal Cannula Weight: 61.7 kg Body Mass Index (BMI) 19.4 Intake & Output: Intake and Output for Last 24 Hours 10/24/24 10/25/24 10/26/24 23:59 23:59 23:59 Intake Total 200 / 200 2097.83 / 2097.83 Output Total 600 / 600 Balance 200 / 200 1497.83 / 1497.83 Lab / Micro Data 10/25/24 06:00 10/25/24 06:00 Labs: Laboratory Results - last 24 hr 10/25/24 06:00: WBC 6.8, RBC 3.56 L, Hgb 10.1 L, Hct 32.2 L, MCV 90.4, MCH 28.4, MCHC 31.4 L, RDW Std Deviation 51.3 H, RDW Coeff of Janice 15.7 H, Plt Count 192, MPV 9.3, Immature Gran % (Auto) 2.900 H, Neut % (Auto) 74.4 H, Lymph % (Auto) 15.4 L, [place] % (Auto) 6.7, Eos % (Auto) 0.3, Baso % (Auto) 0.3, Absolute Neuts (auto) 5.1, Absolute Lymphs (auto) 1.05, Nucleated RBC % 0, Sodium 140, Potassium 3.7, Chloride 107, Carbon Dioxide 22.3, Anion Gap 11, BUN 8, Creatinine 0.45 L, Estim Creat Clear Calc 71.77, Est GFR (MDRD) Non-Af 111, BUN/Creatinine Ratio 18.5, Glucose 82, Hemoglobin A1c 6.1 H, Calcium 8.5, Phosphorus 3.9, Total Bilirubin 0.43, AST 17, ALT 16, Alkaline Phosphatase 83, Total Protein 5.8 L, Albumin 2.4 L, Globulin 3.4, Albumin/Globulin Ratio 0.7 L, TSH 1.350 10/25/24 12:09: POC Glucose 121 H 10/25/24 12:30: Urine Opiates Screen NEGATIVE, U Buprenorphine Qual NEGATIVE, Ur Oxycodone Screen NEGATIVE, Urine Methadone Screen NEGATIVE, Urine Fentanyl Screen NEGATIVE, Ur Barbiturates Screen NEGATIVE, Ur Phencyclidine Scrn NEGATIVE, Ur Amphetamines Screen NEGATIVE, U Benzodiazepines Scrn NEGATIVE, Urine Cocaine Screen NEGATIVE, U Cannabinoids Screen NEGATIVE 10/25/24 16:10: POC Glucose 99 10/26/24 00:47: POC Glucose 90 10/26/24 05:36: POC Glucose 85 Micro: Microbiology 10/24/24 22:38 Mucosa - Nose SARS-CoV-2, Influenza & RSV (PCR) - Final Physical Exam Const alert and no apparent distress HEENT head/scalp atraumatic and moist oral mucous membranes Resp normal respiratory effort, no retractions, no use of accessory muscles and clear to auscultation bilaterally Cardio regular rate, regular rhythm, S1 normal heart sound and S2 normal heart sound GI normal to inspection, nondistended, normoactive bowel sounds and soft to palpation GI Narrative: colostomy in place with soft light brown stool. Assessment & Plan Assessment/Plan (1) PIC line (peripherally inserted central catheter) removal: PLAN: self-removal. According to his , he had fallen out bed and the PICC line came out along with it. PICC replaced. Continue abx with ertapenem through 11/12 PLAN: Plan Cavitary lung lesions: TB ruled out. Was to continue IV ertapenem through 11/12. CTA chest mild increase overall. Too early to determine if treatment failure. Continue abx as previously prescribed. If worsening, then hospice consult should be consider. Will cancel hospice consult. UC: continue hydrocortisone [place] and mesalamine Dementia: Unclear type, but clearly very advanced. Complicates care and recovery. VTE prophylaxis: SQ heparin Code status: verified with his on 10/25: FULL CODE despite his terrible performance status, it is what he previously wished for. There were plans prior to this hospitalization to meet with hospice, which given his poor condition, would be appropriate. However, she wishes to continue with medical care. Dispostion: upset about his fall and being down for a prolonged period. She does not want him to return to [facility]. Social work to assist on disposition. Pt medically stable for discharge. Charges/Coding Visit Charges Inpatient E&M: 64418 Subs Hosp L2
[2024-10-26 07:23] VITALS: O2SAT 96
[2024-10-26 08:00] VITALS: BP 102/54; PULSE 88; RESP 16; TEMP 36.8; O2SAT 94
[2024-10-26] MEDS: Multivitamins,Therapeutic Tablet 1 TABLET PO (09:17)
[2024-10-26] MEDS: Ascorbic Acid 500 MG Tablet 1000 MG PO ×2 (09:18→18:41)
[2024-10-26] MEDS: Thiamine Hydrochloride 100 MG Tablet PO (09:18)
[2024-10-26] MEDS: Docusate Sodium 100 MG Capsule PO (09:18)
[2024-10-26] MEDS: Heparin Injection (Vial) 5,000 UNIT/ML VIAL 5000 UNIT SC ×2 (09:19→20:50)
[2024-10-26] MEDS: Magnesium Chloride 64 MG Delay Rel.Tablet 128 MG PO ×2 (09:19→22:48)
[2024-10-26] MEDS: MESALAMINE 400 MG CAPSULE.DR PO ×2 (09:19→22:48)
[2024-10-26] MEDS: guaiFENesin/D-Methorphan TAB.SR.12H 1 TABLET PO ×2 (09:19→22:49)
[2024-10-26] MEDS: Collagenase 30gm Tube 1 APPLIC TOPICAL (09:20)
[2024-10-26] MEDS: Hydrocortisone 25 MG Suppository RC ×2 (09:21→22:48)
[2024-10-26] MEDS: Zinc Sulfate 50 mg zinc (220 mg) ORAL capsule PO (09:21)
[2024-10-26] MEDS: Cholecalciferol (Vit D3) 125 MCG CAPSULE (5,000 UNITS) PO (09:21)
[2024-10-26] MEDS: Glucerna Shake 120 ML LIQUID PO ×3 (09:25→18:46)
[2024-10-26] MEDS: Dextrose 5%/0.9% NaCl 1,000 ML 70 ML IV (09:27)
[2024-10-26] MEDS: Ertapenem Sod 1 GM in 0.9% Normal Saline (50mL MB+) 50 ML IV (09:28)
[2024-10-26] MEDS: Pantoprazole Sodium 40 MG Tablet PO (09:29)
[2024-10-26 11:53] LABS: Bedside Glucose 99 mg/dL (74-106)
[2024-10-26 14:00] VITALS: BP 118/62; PULSE 88; RESP 16; TEMP 36.6; O2SAT 93
[2024-10-26] MEDS: Lactobacillis Acidophilus 1 CAP PO ×2 (14:09→22:49)
[2024-10-26 17:09] LABS: Bedside Glucose 138 mg/dL (74-106)
[2024-10-26 20:00] VITALS: BP 112/60; PULSE 82; RESP 15; TEMP 36.4; O2SAT 99
[2024-10-26 22:00] VITALS: RESP 15
[2024-10-26] MEDS: Atorvastatin Calcium 10 MG Tablet PO (22:48)
[2024-10-26 23:11] LABS: Bedside Glucose 105 mg/dL (74-106)
[2024-10-27] VITALS (8 sets, daily range): BP systolic 107–119; BP diastolic 63–71; PULSE 73–81; RESP 15–20; TEMP 36.5–36.8; O2SAT 95–99; BMI 19.7
[2024-10-27] MEDS: Dextrose 5%/0.9% NaCl 1,000 ML 70 ML IV ×2 (01:39→16:36)
[2024-10-27 06:14] LABS: Absolute Lymphocyte Count 0.82 X10^3/uL (0.83-4.51); Absolute Neutrophil Count 2.7 X10^3/uL (2.0-7.7); Basophil# 0.03 X10^3/uL; Basophil% 0.7 % (0-1); Eosinophil# 0.03 X10^3/uL; Eosinophils% 0.7 % (0-5); Hematocrit 27.2 % (40-54); Hemoglobin 8.4 g/dL (13.0-16.5); Lymphocyte # 0.82 X10^3/ul (0.83-4.51); Lymphocyte % 19.8 % (19-41); Mean Corp Hgb Conc 30.9 g/dL (32-36); Mean Corpuscular Volume 90.7 fL (80-94); Mean Platelet Vol. 9.4 fl (6.2-12.0); Monocyte# 0.52 X10^3/uL; Monocyte% 12.6 % (0-10); NRBC Flagged by Analyzer 0 % (0-5); Neutrophil # 2.67 X10^3/uL (2.7-7.7); Neutrophil % 64.5 % (47-70); Platelet Count 124 K/mm3 (150-450); RBC Distribution Width CV 15.1 % (11.6-14.6); RBC Distribution Width SD 49.7 fl (35.1-43.9); White Blood Count 4.1 K/mm3 (4.4-11.0)
[2024-10-27] MEDS: Lactobacillis Acidophilus 1 CAP PO ×3 (06:31→22:22)
[2024-10-27] MEDS: Dicyclomine 10 MG Capsule PO ×3 (06:31→16:37)
[2024-10-27 06:42] LABS: Anion Gap 6 (5-15); BUN 4 mg/dL (4-19); BUN/Creat Ratio 10.9 RATIO (10-20); Calcium,Total 7.9 mg/dL (7.6-11.0); Carbon Dioxide 23.9 mmol/L (21.0-32.0); Chloride 113 mmol/L (98-108); Creatinine, Serum 0.38 mg/dL (0.70-1.20); EST Glomerular Filtration Rate 117 (>60); Glucose 113 mg/dL (70-99); Potassium 3.3 mmol/L (3.3-5.1); Sodium Level 143 mmol/L (133-145)
[2024-10-27 07:10] LABS: Bedside Glucose 116 mg/dL (74-106)
[2024-10-27] MEDS: Thiamine Hydrochloride 100 MG Tablet PO (09:32)
[2024-10-27] MEDS: MESALAMINE 400 MG CAPSULE.DR PO ×2 (09:32→22:25)
[2024-10-27] MEDS: Pantoprazole Sodium 40 MG Tablet PO (09:32)
[2024-10-27] MEDS: Cholecalciferol (Vit D3) 125 MCG CAPSULE (5,000 UNITS) PO (09:32)
[2024-10-27] MEDS: Zinc Sulfate 50 mg zinc (220 mg) ORAL capsule PO (09:32)
[2024-10-27] MEDS: Magnesium Chloride 64 MG Delay Rel.Tablet 128 MG PO ×2 (09:32→22:23)
[2024-10-27] MEDS: Multivitamins,Therapeutic Tablet 1 TABLET PO (09:32)
[2024-10-27] MEDS: Ascorbic Acid 500 MG Tablet 1000 MG PO ×2 (09:32→16:37)
[2024-10-27] MEDS: Docusate Sodium 100 MG Capsule PO (09:32)
[2024-10-27] MEDS: Heparin Injection (Vial) 5,000 UNIT/ML VIAL 5000 UNIT SC ×2 (09:33→22:24)
[2024-10-27] MEDS: guaiFENesin/D-Methorphan TAB.SR.12H 1 TABLET PO ×2 (09:33→22:23)
[2024-10-27] MEDS: Hydrocortisone 25 MG Suppository RC ×2 (09:33→22:22)
[2024-10-27] MEDS: Ertapenem Sod 1 GM in 0.9% Normal Saline (50mL MB+) 50 ML IV (09:39)
[2024-10-27] MEDS: Glucerna Shake 120 ML LIQUID PO ×4 (09:39→22:24)
[2024-10-27] MEDS: Collagenase 30gm Tube 1 APPLIC TOPICAL (09:40)
[2024-10-27 11:55] LABS: Bedside Glucose 149 mg/dL (74-106)
--- NOTE | 2024-10-27 12:04 | CASEMGMT ---
Addendum entered by Kaity Ramirez 10/27/24 12:44: [facility] declined. SW updated. TRAVIS Dawson Planning Asst. Original Note: Discharge Planning Referral sent to [facility]. Kaity Ramirez DC Planning Asst.
--- NOTE | 2024-10-27 12:31 | PN_ITS ---
Subjective Subjective Patient seen and examined. He was lying calmly in be. He had no active complaints and was quite lethargic. He denied any pain, fever, chills, cough, chest pain, palpitations, dizziness, nausea, vomiting or any other symptoms. Review of systems is otherwise negative. he is on 3L of oxygen. Objective Data Objective Data Vital Signs: Vital Signs Temp Pulse Resp BP Pulse Ox O2 Del Method O2 Flow Rate 98.3 F 75 20 H 107/66 99 Nasal Cannula 3 10/27/24 09:18 10/27/24 09:18 10/27/24 09:18 10/27/24 09:18 10/27/24 09:18 10/27/24 09:18 10/27/24 09:18 Oxygen Flow Rate (L/min) 3 Oxygen Delivery Method Nasal Cannula Weight: 137 lb 12.623 oz Body Mass Index (BMI) 19.7 Intake & Output: Intake and Output for Last 24 Hours 10/25/24 10/26/24 10/27/24 23:59 23:59 23:59 Intake Total 2097.83 / 2097.83 1025.33 / 1125.33 1810 / 1810 Output Total 600 / 600 Balance 1497.83 / 1497.83 1025.33 / 1125.33 1810 / 1810 Lab / Micro Data 10/27/24 06:07 10/27/24 06:07 Labs: Laboratory Results - last 24 hr 10/26/24 16:35: POC Glucose 138 H 10/26/24 22:46: POC Glucose 105 10/27/24 06:07: WBC 4.1 L, RBC 3.00 L, Hgb 8.4 L, Hct 27.2 L, MCV 90.7, MCH 28.0, MCHC 30.9 L, RDW Std Deviation 49.7 H, RDW Coeff of Janice 15.1 H, Plt Count 124 L, MPV 9.4, Immature Gran % (Auto) 1.700 H, Neut % (Auto) 64.5, Lymph % (Auto) 19.8, [place] % (Auto) 12.6 H, Eos % (Auto) 0.7, Baso % (Auto) 0.7, Absolute Neuts (auto) 2.7, Absolute Lymphs (auto) 0.82 L, Nucleated RBC % 0, Sodium 143, Potassium 3.3, Chloride 113 H, Carbon Dioxide 23.9, Anion Gap 6, BUN 4, C reatinine 0.38 L, Estim Creat Clear Calc 72.70, Est GFR (MDRD) Non-Af 117, BUN/Creatinine Ratio 10.9, Glucose 113 H, Calcium 7.9 10/27/24 06:36: POC Glucose 116 H 10/27/24 11:32: POC Glucose 149 H Micro: Microbiology 10/24/24 22:38 Mucosa - Nose SARS-CoV-2, Influenza & RSV (PCR) - Final Physical Exam Const alert and oriented x3 Constitutional Narrative: frail, weak General Appearance: cooperative Orientation / Consciousness: lethargic HEENT normocephalic, head/scalp atraumatic, moist oral mucous membranes, oropharynx normal and gingiva normal Eyes PERRL and EOMs intact bilaterally Neck no lymphadenopathy and supple Lymph Lymphatic: no lymphadenopathy noted and no lymphedema noted Resp Resp Narrative: mildly diminished breath sounds bibasally, no wheezes or crackles. On 3L of oxygen by nasal canula Cardio regular rate, regular rhythm, S1 normal heart sound, S2 normal heart sound and no murmurs GI normal to inspection, nondistended, normoactive bowel sounds, soft to palpation, non-tender and non-distended Extremity normal capillary refill, no clubbing, cyanosis or edema and no calf tenderness General Extremity: no tenderness to palpation of joints or extremities Neuro CN's II-XII intact bilaterally, no focal motor deficits and no sensory deficits noted Motor Exam: general weakness Psych thought process normal and cooperative Mood & Affect: flat affect Assessment & Plan Assessment/Plan (1) Cavitary pneumonia: PLAN: Plan #Hypoxia due to cavitary pneumonia * was admitted due to patient pulling out PICC line. * PICC line has been replaced * on IV ertapenem till 11/12/2024 per ID recommendations * #Ulcerative colitis: on hydrocortisone and mesalamine #Anemia: * Hemoglobin is 8.4. Hemoglobin has been fluctuating between 8-10 was as low as 1.4 on 10/17/2024. * This is chronic. Will monitor. * #Thrombocytopenia: * Platelets at 124 today. Was 192 a few days ago. * I will monitor closely. * If it continues to trend downwards will DC heparin. * #DVT prophylaxis: heparin Code status: full code Charges/Coding Visit Charges Inpatient E&M: 74872 Subs Hosp L2
--- NOTE | 2024-10-27 12:31 | CASEMGMT ---
HALLMAN VM left for pts to review HALLMAN. Kaity Ramirez DC Planning Asst.
--- NOTE | 2024-10-27 13:32 | CASEMGMT ---
Discharge Planning Referral sent to [facility]. Kaity Ramirez DC Planning Asst.
--- NOTE | 2024-10-27 14:53 | CASEMGMT ---
Spoke with patients (Nunu) to complete HALLMAN form. HALLMAN form explained to pt who voiced understanding. Original form placed in pt?s chart and copy placed in pts room. Kaity Ramirez, Discharge Planning Asst
--- NOTE | 2024-10-27 16:15 | CASEMGMT ---
Social Work- MAUREEN called Nunu to follow up on selections for SNF. Nunu chose [facility]. Nunu asked MAUREEN to follow up with pt to determine if pt wants to return to [facility]. MAUREEN educated that pt is O x 1 and unable to make that decision at this time. MAUREEN inquired about HCPOA papers. Nunu reports she and pt have been legally for 22 years. Nunu does not know where a HCPOA would be or if pt has one completed. MAUREEN educated on [employer] legal hierarchy making legal decision maker. Pt reports that she had a meeting at [facility] today, but was uncertain who it was with. Nunu could not clarify if there was a hospice consult scheduled. Nunu reports that she would like pt to have hospice, but also wanted pt to be a full code. MAUREEN provided education on hospice. Nunu changed subjects and became fixated on discussing pt having rails on his bed at a facility upon d/c. Nunu was agreeable to MAUREEN calling MAUREEN Torres at [facility] to discuss meeting today. MAUREEN called MAUREEN Torres at [facility] to collaborate on pt care. Melissa reports that meeting was between Nunu and PA of facility, Ann-Marie, to discuss pt deterioration and hospice appropriateness. Melissa reports that facility uses [facility] and if pt is a , irregardless of service connectedness, pt could have hospice services with free room and board at facility. 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 Melissa was uncertain if pt was a despite showing that he has [facility] insurance. MAUREEN called Homero at [facility] to confirm; MAUREEN left a voicemail. MAUREEN called Nunu to collaborate; MAUREEN left a voicemail. MAUREEN remains available to follow. ZAYRA Dela Cruz
[2024-10-27] MEDS: Insulin Lispro 100 UNIT/ML INSULN.PEN SC ×2 (17:04→23:39)
[2024-10-27 17:20] LABS: Bedside Glucose 155 mg/dL (74-106)
--- NOTE | 2024-10-27 18:52 | NURSING ---
Called received from , Nunu regarding suspicion that a friend Herb brought whiskey in and gave some to pt on 10/26. Dr Islas notified, no new orders.
[2024-10-27] MEDS: Atorvastatin Calcium 10 MG Tablet PO (22:23)
--- NOTE | 2024-10-27 23:03 | NURSING ---
Pt called earlier in shift for update; called back at this time but no answer, voicemail left.
[2024-10-27 23:57] LABS: Bedside Glucose 158 mg/dL (74-106)
[2024-10-28] VITALS (9 sets, daily range): BP systolic 107–114; BP diastolic 62–81; PULSE 66–86; RESP 16–18; TEMP 36.4–36.7; O2SAT 94–97; BMI 19.4
[2024-10-28] MEDS: Dicyclomine 10 MG Capsule PO ×3 (04:48→16:46)
[2024-10-28] MEDS: Lactobacillis Acidophilus 1 CAP PO ×3 (04:48→22:54)
[2024-10-28 05:14] LABS: Bedside Glucose 136 mg/dL (74-106)
[2024-10-28 06:07] LABS: Absolute Lymphocyte Count 0.82 X10^3/uL (0.83-4.51); Absolute Neutrophil Count 2.9 X10^3/uL (2.0-7.7); Basophil# 0.01 X10^3/uL; Basophil% 0.2 % (0-1); Eosinophil# 0.03 X10^3/uL; Eosinophils% 0.7 % (0-5); Hematocrit 26.2 % (40-54); Hemoglobin 8.3 g/dL (13.0-16.5); Lymphocyte # 0.82 X10^3/ul (0.83-4.51); Lymphocyte % 19.3 % (19-41); Mean Corp Hgb Conc 31.7 g/dL (32-36); Mean Corpuscular Hgb 28.6 pg (27.0-32.0); Mean Corpuscular Volume 90.3 fL (80-94); Mean Platelet Vol. 9.8 fl (6.2-12.0); Monocyte# 0.46 X10^3/uL; Monocyte% 10.8 % (0-10); NRBC Flagged by Analyzer 0 % (0-5); Neutrophil # 2.88 X10^3/uL (2.7-7.7); Neutrophil % 68.1 % (47-70); Platelet Count 121 K/mm3 (150-450); RBC Distribution Width CV 14.9 % (11.6-14.6); RBC Distribution Width SD 49.3 fl (35.1-43.9); White Blood Count 4.2 K/mm3 (4.4-11.0)
[2024-10-28 07:02] LABS: Anion Gap 8 (5-15); BUN 4 mg/dL (4-19); BUN/Creat Ratio 11.2 RATIO (10-20); Calcium,Total 7.7 mg/dL (7.6-11.0); Carbon Dioxide 21.4 mmol/L (21.0-32.0); Chloride 111 mmol/L (98-108); Creatinine, Serum 0.38 mg/dL (0.70-1.20); EST Glomerular Filtration Rate 117 (>60); Estimated Creatinine Clearance 71.65 ml/min (50-250); Glucose 152 mg/dL (70-99); Potassium 3.4 mmol/L (3.3-5.1); Sodium Level 140 mmol/L (133-145)
[2024-10-28] MEDS: Dextrose 5%/0.9% NaCl 1,000 ML 70 ML IV (08:34)
[2024-10-28] MEDS: Multivitamins,Therapeutic Tablet 1 TABLET PO (08:35)
[2024-10-28] MEDS: Cholecalciferol (Vit D3) 125 MCG CAPSULE (5,000 UNITS) PO (08:35)
[2024-10-28] MEDS: Thiamine Hydrochloride 100 MG Tablet PO (08:36)
[2024-10-28] MEDS: Ascorbic Acid 500 MG Tablet 1000 MG PO ×2 (08:36→16:46)
[2024-10-28] MEDS: Magnesium Chloride 64 MG Delay Rel.Tablet 128 MG PO ×2 (08:36→22:53)
[2024-10-28] MEDS: Docusate Sodium 100 MG Capsule PO (10:29)
[2024-10-28] MEDS: Hydrocortisone 25 MG Suppository RC (10:29)
[2024-10-28] MEDS: MESALAMINE 400 MG CAPSULE.DR PO ×2 (10:29→22:53)
[2024-10-28] MEDS: Ertapenem Sod 1 GM in 0.9% Normal Saline (50mL MB+) 50 ML IV (10:29)
[2024-10-28] MEDS: Collagenase 30gm Tube 1 APPLIC TOPICAL (10:30)
[2024-10-28] MEDS: Pantoprazole Sodium 40 MG Tablet PO (10:30)
[2024-10-28] MEDS: Heparin Injection (Vial) 5,000 UNIT/ML VIAL 5000 UNIT SC ×2 (10:30→22:54)
[2024-10-28] MEDS: guaiFENesin/D-Methorphan TAB.SR.12H 1 TABLET PO (10:30)
[2024-10-28] MEDS: Zinc Sulfate 50 mg zinc (220 mg) ORAL capsule PO (10:31)
--- NOTE | 2024-10-28 10:53 | CASEMGMT ---
Discharge Planning [place] updated that pt has chosen another snf. Kaity Ramirez DC Planning Asst.
--- NOTE | 2024-10-28 10:57 | CASEMGMT ---
Discharge Planning Updates sent to [facility]. Kaity Ramirez DC Planning Asst.
[2024-10-28] MEDS: Glucerna Shake 120 ML LIQUID PO ×3 (11:08→16:47)
--- NOTE | 2024-10-28 11:20 | PN_ITS ---
Subjective Subjective Patient seen and examined. He had no active complaints. He is on 2L of oxygen.Review of systems is otherwise negative. He does not think he nor his met with hospice yesterday. Review of systems is otherwise negative. Objective Data Objective Data Vital Signs: Vital Signs Temp Pulse Resp BP Pulse Ox O2 Del Method O2 Flow Rate 97.6 F L 86 16 114/63 96 Nasal Cannula 2 10/28/24 09:10 10/28/24 09:10 10/28/24 09:10 10/28/24 09:10 10/28/24 09:10 10/28/24 09:10 10/28/24 09:10 Oxygen Flow Rate (L/min) 2 Oxygen Delivery Method Nasal Cannula Weight: 135 lb 12.876 oz Body Mass Index (BMI) 19.4 Intake & Output: Intake and Output for Last 24 Hours 10/26/24 10/27/24 10/28/24 23:59 23:59 23:59 Intake Total 1025.33 / 1125.33 2590 / 2890 1500 / 1500 Balance 1025.33 / 1125.33 2590 / 2890 1500 / 1500 Lab / Micro Data 10/28/24 05:56 10/28/24 05:56 Labs: Laboratory Results - last 24 hr 10/27/24 11:32: POC Glucose 149 H 10/27/24 16:59: POC Glucose 155 H 10/27/24 23:36: POC Glucose 158 H 10/28/24 04:55: POC Glucose 136 H 10/28/24 05:56: WBC 4.2 L, RBC 2.90 L, Hgb 8.3 L, Hct 26.2 L, MCV 90.3, MCH 28.6, MCHC 31.7 L, RDW Std Deviation 49.3 H, RDW Coeff of Janice 14.9 H, Plt Count 121 L, MPV 9.8, Immature Gran % (Auto) 0.900, Neut % (Auto) 68.1, Lymph % (Auto) 19.3, [place] % (Auto) 10.8 H, Eos % (Auto) 0.7, Baso % (Auto) 0.2, Absolute Neuts (auto) 2.9, Absolute Lymphs (auto) 0.82 L, Nucleated RBC % 0, Sodium 140, Potassium 3.4, Chloride 111 H, Carbon Dioxide 21.4, Anion Gap 8, BUN 4, C reatinine 0.38 L, Estim Creat Clear Calc 71.65, Est GFR (MDRD) Non-Af 117, BUN/Creatinine Ratio 11.2, Glucose 152 H, Calcium 7.7 Micro: Microbiology 10/24/24 22:38 Mucosa - Nose SARS-CoV-2, Influenza & RSV (PCR) - Final Physical Exam Const alert, oriented x3 and no apparent distress Constitutional Narrative: frail, weak General Appearance: cooperative HEENT normocephalic, head/scalp atraumatic, hearing grossly normal bilaterally, moist oral mucous membranes, oropharynx normal and gingiva normal Eyes PERRL and EOMs intact bilaterally Neck no lymphadenopathy and supple Lymph Lymphatic: no lymphadenopathy noted and no lymphedema noted Resp Resp Narrative: mildly diminished breath sounds bibasally, no wheezes or crackles. On 3L of oxygen by nasal canula Cardio regular rate, regular rhythm, S1 normal heart sound, S2 normal heart sound and no murmurs GI normal to inspection, nondistended, normoactive bowel sounds, soft to palpation, non-tender and non-distended GI Narrative: colostomy in place with soft light brown stool. Extremity normal to inspection, full ROM, normal capillary refill, no clubbing, cyanosis or edema and no calf tenderness General Extremity: no tenderness to palpation of joints or extremities Skin Skin Narrative: Patient has no evidence of rash, abscess, wounds or jaundice Neuro CN's II-XII intact bilaterally, moves all extremities, no focal motor deficits and no sensory deficits noted Sensorium / Orientation: awake, alert and oriented to person Speech: speech normal Motor Exam: general weakness Psych thought process normal, cooperative and affect normal Appearance: appropriate Mood & Affect: flat affect Assessment & Plan Assessment/Plan (1) Cavitary pneumonia: PLAN: Plan #Hypoxia due to cavitary pneumonia * was admitted due to patient pulling out PICC line. * PICC line has been replaced * on IV ertapenem till 11/12/2024 per ID recommendations * #Ulcerative colitis: on hydrocortisone and mesalamine #Anemia: * Hemoglobin is 8.3 today. Hemoglobin has been fluctuating between 8-10 was as low as 1.4 on 10/17/2024. * This is chronic. Will monitor. * #Thrombocytopenia: * Platelets are down to 121 today from 124 yesterday. Was 192 a few days ago. * I will monitor closely. * If it continues to trend downwards will DC heparin. * #DVT prophylaxis: heparin Code status: full code Disposition: per discussion with case management, wants him to go to a different SNF. Case management helping to facilitate this. Charges/Coding Visit Charges Inpatient E&M: 12798 Subs Hosp L2
[2024-10-28 11:36] LABS: Bedside Glucose 145 mg/dL (74-106)
--- NOTE | 2024-10-28 12:03 | CASEMGMT ---
Social Work- MAUREEN called pt Nunu to notify that [facility] accept pt referral. SW provided information that if the plan is to connect with hospice, [facility] is a [facility] connected facility and reports that they cover room and board through [place] if on hospice. SW provided education regarding LTC medicaid or private pay for other facilities that are not VA connected. MAUREEN called and confirmed with Homero at [facility] that pt is a . Nunu reports that she will plan for pt to return to [facility] with hospice. MAUREEN called [facility] and spoke with MAUREEN Torres, to confirm that [facility] would assess pt upon return to facility. Plan: [facility]; with hospice ZAYRA Dela Cruz
--- NOTE | 2024-10-28 14:37 | CASEMGMT ---
Social Work- MAUREEN received a call from Melissa at [facility] that SW needs to complete GEC form and complete hospice referral through [facility]. MAUREEN completed GEC and documentation. MAUREEN called Homero to confirm receipt. Homero reports that as she was in pt chart, she realized that pt has not seen a VA physician in 2 years and will not be eligible through the [place] for hospice program until pt is reconnected with VA physician. Homero offered that pt could connect via telehealth. MAUREEN updated physician and DCA that pt will need to return skilled until pt can establish services through [facility]. MAUREEN called Nunu to update. Nunu is agreeable to a telehealth appointment, reporting that it became too much for pt to travel to [place] for appointments which is why pt had not seen a VA provider. Nunu requests that SNF implement some safeguards for pt in bed, as he has fallen out of bed twice recently and pt remains concerned about future falls. MAUREEN updated DCA on concerns to pass on to facility. MAUREEN remains available to follow. Plan: [facility]; skilled level of care ZAYRA Del aCruz
--- NOTE | 2024-10-28 14:51 | CASEMGMT ---
Updates sent to [facility] with request to submit for precert. Kaity Ramirez DC Planning Asst.
[2024-10-28] MEDS: 0.9% Saline Lock 10 ML Syringe IV (14:54)
[2024-10-28 17:05] LABS: Bedside Glucose 147 mg/dL (74-106)
[2024-10-28] MEDS: Atorvastatin Calcium 10 MG Tablet PO (22:53)
[2024-10-29] VITALS (8 sets, daily range): BP systolic 107–119; BP diastolic 50–68; PULSE 75–83; RESP 16–22; TEMP 36.2–37; O2SAT 91–96
[2024-10-29 00:29] LABS: Bedside Glucose 142 mg/dL (74-106)
[2024-10-29] MEDS: Dextrose 5%/0.9% NaCl 1,000 ML 70 ML IV (01:25)
[2024-10-29 05:09] LABS: Absolute Neutrophil Count 2.5 X10^3/uL (2.0-7.7); Basophil# 0.01 X10^3/uL; Basophil% 0.3 % (0-1); Eosinophil# 0.04 X10^3/uL; Hematocrit 24.5 % (40-54); Hemoglobin 7.8 g/dL (13.0-16.5); Lymphocyte % 22.8 % (19-41); Mean Corp Hgb Conc 31.8 g/dL (32-36); Mean Corpuscular Hgb 28.4 pg (27.0-32.0); Mean Corpuscular Volume 89.1 fL (80-94); Monocyte# 0.46 X10^3/uL; Monocyte% 11.7 % (0-10); NRBC Flagged by Analyzer 0 % (0-5); Neutrophil # 2.49 X10^3/uL (2.7-7.7); Neutrophil % 63.2 % (47-70); Platelet Count 142 K/mm3 (150-450); RBC Distribution Width SD 48.6 fl (35.1-43.9); Red Blood Count 2.75 M/mm3 (4.6-6.2); White Blood Count 3.9 K/mm3 (4.4-11.0)
[2024-10-29 05:43] LABS: Anion Gap 7 (5-15); BUN 4 mg/dL (4-19); BUN/Creat Ratio 13.3 RATIO (10-20); Calcium,Total 7.6 mg/dL (7.6-11.0); Carbon Dioxide 21.5 mmol/L (21.0-32.0); Chloride 110 mmol/L (98-108); Creatinine, Serum 0.31 mg/dL (0.70-1.20); EST Glomerular Filtration Rate 124 (>60); Glucose 111 mg/dL (70-99); Potassium 3.1 mmol/L (3.3-5.1); Sodium Level 139 mmol/L (133-145)
[2024-10-29] MEDS: Dicyclomine 10 MG Capsule PO ×2 (06:25→11:08)
[2024-10-29] MEDS: Lactobacillis Acidophilus 1 CAP PO (06:25)
[2024-10-29 06:54] LABS: Bedside Glucose 101 mg/dL (74-106)
[2024-10-29] MEDS: Ascorbic Acid 500 MG Tablet 1000 MG PO (07:54)
[2024-10-29] MEDS: Thiamine Hydrochloride 100 MG Tablet PO (07:59)
[2024-10-29] MEDS: Potassium Chloride Oral Tablet 20 MEQ 40 MEQ PO (08:15)
--- NOTE | 2024-10-29 09:11 | ST.MBS ---
Modified Barium Swallow Patient Information Study Date: 10/28/24 Study Time: 13:30 Direct Billable Minutes: 120 Total Minutes procedure & reportin Diagnosis: J18.9 - Pneumonia Referring Physician: Dorothea Islas Medical History: A 74-year-old male was brought to [facility] ER from his extended care facility [facility] due to altered mental status. Staff reported the patient had removed his PICC line late in the evening on October 24, 2024, prompting transfer for further evaluation. He has a complex medical history, including recent hospitalizations?first from August 21 to August 24 for sepsis likely secondary to pneumonia and an acute exacerbation of ulcerative colitis in the context of a partially treated Clostridium difficile infection with concurrent hyponatremia. He was then transferred to [facility]. More recently, he was admitted from October 08 to October 17 for management of cavitary lung lesions, primarily in the right middle lobe, with ground-glass opacities and signs of emphysematous disease, likely from recurrent aspiration and chronic tobacco use. His course was complicated by suspected superimposed COPD and acute metabolic encephalopathy; a neurology consult and MRI ruled out stroke. On this ER visit, a CTA of the chest with and without contrast showed no evidence of pulmonary embolism. However, the scan revealed increased patchy opacities, mildly enlarged air-fluid levels in cavitary lesions, and possible mucus plugging, which may represent a ?blooming effect? from recent antibiotic therapy. Despite a 15-day course of IV ertapenem through a PICC line, the patient's respiratory condition continues to deteriorate, likely due to ongoing aspiration related to fluctuating mental status. Speech therapy has been consulted to assess for dysphagia and aspiration risk. Past medical history includes cavitary pneumonia, ulcerative colitis, C. difficile colitis, colitis, hypertension, diabetes, GERD, GI bleed, diverticulitis, restless legs syndrome, arthritis, irritable bowel syndrome, alcohol abuse, generalized weakness, high cholesterol, and a history of tobacco use (now a former smoker). Dentition: Missing Teeth Mental Status: Impaired Respiratory Status: Oxygenating on 3L/M nasal cannula Penetration-Aspiration Scale Penetration-Aspiration Scale: OBJECTIVE ASSESSMENT OF SWALLOW FUNCTION (QUANTITATIVE ? PER TRIAL): PENETRATION / ASPIRATION SCALE (SNOW): 1 = does not enter airway 2 = enters airway/above vocal folds/ejected 3 = enters airway/above vocal folds/not ejected 4 = enters airway/contacts vocal folds/ejected 5 = enters airway/contacts vocal folds/not ejected 6 = enters airway/below vocal folds/ejected 7 = enters airway/below vocal folds/not ejected despite effort 8 = enters airway/below vocal folds/no effort VIDEOFLOROSCOPIC SCALE SCORE (SNOW): Grade I = aspiration of material that has penetrated into the laryngeal vestibule, intact cough reflex Grade II = aspiration < 10 % of the bolus, intact cough reflex Grade III = aspiration of < 10 % of the bolus, reduced cough reflex or aspiration of > 10 % of the bolus, intact cough reflex Grade IV = aspiration of > 10 % of the bolus, reduced cough reflex Penetration-Aspiration Scale Score Thin Liquid via teaspoon: Result: 1= does not enter airway Thin Liquid via small single sip: cup: Result: 3= enters airways/above vocal folds/not ejected Thin Liquid via small single sip: cup Trial 2: Result: 3= enters airways/above vocal folds/not ejected Thin Liquid via sequential sips: cup: Result: 5= enters airways/contacts vocal folds/not ejected Thin Liquid via small single sip: cup Trial 3: Result: 5= enters airways/contacts vocal folds/not ejected Melrose Thick Liquid via small single sip: cup: Result: 1= does not enter airway [place] Thick Liquid via small single sip: cup Trial 2: Result: 1= does not enter airway Pudding: Result: 1= does not enter airway Cookie: Result: 1= does not enter airway [place] Thick Liquid via small single sip: cup Trial 3: Result: 1= does not enter airway Thin Liquid via small single sip: cup Trial 4: Result: 5= enters airways/contacts vocal folds/not ejected Oral Phase Labial Seal: Escape progressing to mid-chin Tongue Control During Bolus Hold: Posterior escape of less than half of bolus Bolus Preparation/Mastication: Disorganized chewing/mashing with solid pieces of bolus unchewed Bolus Transport/Lingual Motion: Delayed initiation of tongue motion Oral Residue: Residue collection on oral structures Pharyngeal Phase Initiation of Pharyngeal Swallow: Bolus head in valleculae Soft Palate Elevation: No bolus between soft palate and pharyngeal wall Laryngeal Elevation: Partial superior movement thyroid cart/partial apprx aryt-epig petiole Anterior Hyoid Excursion: Partial anterior movement Epiglottic Movement: Partial inversion Laryngeal Vestibule Closure at Height of Swallow: Incomplete; narrow column of air/contrast in laryngeal vestibule Pharyngeal Stripping Wave: Present - diminished Pharyngoesophageal Segment Opening: Parital distension and partial duration; parital obstruction of flow Tongue Base Retraction: Wide column of contrast between tongue base & post. pharyngeal wall Pharyngeal Residue: Collection of residue within or on pharyngeal structures Esophageal Phase Esophageal Clearance: Complete clearance Diagnosis/Impression Diagnosis: OROPHARYNGEAL DYSPHAGIA R13.12 Impression: The patient presents with oropharyngeal dysphagia. Oral phase deficits are likely due to generalized oral weakness, further impacted by poor dentition. Prolonged mastication was observed, likely related to multiple missing teeth, with mildly delayed AP bolus transit. During cookie trials, the patient was seen chewing with the majority of the bolus pooling in the vallecula prior to swallow initiation. With thin liquids via cup, penetration to the level of the vocal folds was consistently observed and not effectively cleared, placing the patient at high risk for aspiration. Decreased airway protection appears to result from inadequate laryngeal vestibule closure, a partial pharyngeal stripping wave, and reduced anterior hyoid excursion. Post-swallow pharyngeal residue was present and did not consistently clear, even with PIPE PRODUCTION WORKER-cued double swallows. Residue was noted in both the vallecula and pyriform sinuses, likely due to a wide tongue base and reduced pharyngeal stripping wave. Some post-swallow spillage into the airway occurred, attributed to pharyngeal residue and partial UES opening. The patient demonstrated improved bolus control and airway protection with nectar-thick liquids, with consistent Penetration-Aspiration Scale (PAS) scores of 1, compared to PAS scores of 3 and 5 with thin liquids. Recommendations Diet: Minced and Moist Textures and Mildly Thick Liquids Compensatory Strategies: Small Bites, Small Sips (intermittent cough and re-swallow), Slow Rate, Feed only when alert, Multiple Swallows, Alternate bites/solids and sips/liquids, Sitting upright and Remain sitting upright for 30 minutes after PO intake Recommend Repeat Modified Barium Swallow: Yes Need for Skilled Speech Therapy Services: Yes Comment: This patient would benefit from skilled speech therapy services to address deficits in both the oral and pharyngeal phases of swallowing, reduce aspiration risk, and improve overall safety and efficiency of swallow function. Therapy should focus on training in oropharyngeal strengthening exercises such as the effortful swallow, Shelbi, Tracy maneuver, and falsetto exercise, as well as implementation of compensatory strategies, safe swallow techniques, and appropriate diet modifications to support adequate nutrition and hydration. Education Completed: 1. Described result of evaluation., 2. Pt understands evaluation & agrees with goals and treatment plan. and 4. Family/caregivers understand evaluation & agree w/ goals & tx plan. Status Active ST Patient: Active Contact Information [facility] Speech Therapy:: Paris Hernández M.A. CCC-PIPE PRODUCTION WORKER Speech-Language Pathologist [facility] [address] [place] [address] [email or web address] [phone]
[2024-10-29] MEDS: Magnesium Chloride 64 MG Delay Rel.Tablet 128 MG PO (11:06)
[2024-10-29] MEDS: MESALAMINE 400 MG CAPSULE.DR PO (11:07)
[2024-10-29] MEDS: Pantoprazole Sodium 40 MG Tablet PO (11:08)
[2024-10-29] MEDS: Zinc Sulfate 50 mg zinc (220 mg) ORAL capsule PO (11:08)
[2024-10-29] MEDS: Docusate Sodium 100 MG Capsule PO (11:09)
[2024-10-29] MEDS: Cholecalciferol (Vit D3) 125 MCG CAPSULE (5,000 UNITS) PO (11:09)
[2024-10-29] MEDS: Ertapenem Sod 1 GM in 0.9% Normal Saline (50mL MB+) 50 ML IV (11:29)
[2024-10-29] MEDS: Heparin Injection (Vial) 5,000 UNIT/ML VIAL 5000 UNIT SC (11:30)
[2024-10-29 12:02] LABS: Bedside Glucose 176 mg/dL (74-106)
--- NOTE | 2024-10-29 12:09 | CASEMGMT ---
Amarilis has obtained auth to admit. SW updated. Kaity Ramirez DC Planning Asst.
--- NOTE | 2024-10-29 12:12 | CASEMGMT ---
Social Work- SW received notice that precert has been obtained. Hospitalist notified. SW remains available to follow. Plan: [facility]; skilled level of care ZAYRA Dela Cruz
--- NOTE | 2024-10-29 13:10 | WOUNDNOTE ---
wound photo: sacrum
--- NOTE | 2024-10-29 13:11 | WOUNDNOTE ---
Ostomy appliance loose at edges. removed the appliance. there was a moderate amount of unformed soft prieto/brown stool. some mild irritation to the peristomal skin. cleansed with soap and water. pat dry. applied a new 2 piece flat Maribel appliance with a small amount of stoma paste. pt tolerated well.
--- NOTE | 2024-10-29 13:27 | TREXTCAR_ITS ---
Diet Diet Order/Speech Therapy: 10/25/24 09:30 Diet: Regular - General Food consistency:: Mechanical (Minced/Moist) Liquid Consistency:: Davidson/Mildly Thick Diet Comments: 1:1 sup, small bites/sips, double swallows, meds whole/crushed in Routine Orders/Code Status Enema Type: Fleetz Enema Frequency: Daily PRN Suppository Type: Dulcolax 10mg Suppository Frequency: Daily PRN DC O2, CPAP, BIPAP needs Home O2 Discharge instructions: No Wound(s) L upper arm: Wound Type: Puncture R hand skin tear: Wound Type: Skin Tear L buttock: Wound Type: Pressure Injury R buttock: Wound Type: Pressure Injury left sacrum: Wound Type: Pressure Injury Dressing Change: Santyl with foam dressing right sacrum: Wound Type: Pressure Injury Dressing Change: santyl with foam dressing Therapies Weight Bearing: Weight bearing as tolerated Physical Therapy: Eval and Treat Occupational Therapy: Eval and Treat Problem/Diagnosis (1) Cavitary pneumonia: Status: Acute Code(s): J18.9 - Pneumonia, unspecified organism; J98.4 - Other disorders of lung Plan #Hypoxia due to cavitary pneumonia * was admitted due to patient pulling out PICC line. * PICC line has been replaced * on IV ertapenem till 11/12/2024 per ID recommendations * #Ulcerative colitis: on hydrocortisone and mesalamine #Anemia: * Hemoglobin is 8.3 today. Hemoglobin has been fluctuating between 8-10 was as low as 1.4 on 10/17/2024. * This is chronic. Will monitor. * #Thrombocytopenia: * Platelets are down to 121 today from 124 yesterday. Was 192 a few days ago. * I will monitor closely. * If it continues to trend downwards will DC heparin. * #DVT prophylaxis: heparin Code status: full code Disposition: per discussion with case management, wants him to go to a different SNF. Case management helping to facilitate this. Allergies/Procedures Done in Hospital Allergies ibuprofen Adverse Reaction (Verified 10/24/24 21:37) Upset Stomach Procedures: None Type of Care/Length of Stay Estimated LOS: Convalescent Care Less Than 30 days Type of Care Needed: Skilled Rehab Potential: Fair Prognosis: Fair Additional Orders/Day of Discharge Day of Discharge: 10/29/24 Dietary and Speech Recommendations Dietitian Recommendations/Changes: Continue liberal regular diet and 120ml glucerna shake 4x daily with medpass due to diabetes. Will monitor weight trends. Discharge Plan Admission Admit Date/Time: 10/25/24 02:06 Primary Reason for Your Visit: cavitary pneumonia Attending Provider: Dorothea Islas Primary Care Provider: Tj Watters Consulting Providers: Khris Landrum; Jus Whitmore Instructions Patient Instructions: ED Pneumonia (Adult) Discharge Orders/Prescriptions Prescriptions: Continued albuterol sulfate 90 mcg/actuation HFA aerosol inhaler 1 inh inhalation Q6H PRN (Reason: shortness of breath or wheezing) Qty: 8.5 1RF pregabalin 150 mg capsule 150 mg PO BID pantoprazole 40 mg Tablet,Delayed Release (Dr/Ec) 40 mg PO DAILY Qty: 30 0RF dicyclomine 10 mg Capsule 10 mg PO TIDAC Qty: 60 0RF mesalamine [Pentasa] 500 mg capsule, extended release 500 mg PO BID 30 Days Qty: 60 0RF hydrocortisone acetate 25 mg suppository 25 mg KS Q12H ipratropium-albuterol 0.5 mg-3 mg(2.5 mg base)/3 mL solution for nebulization 3 ml inhalation Q8H PRN (Reason: SOB) multivitamin [Daily Multi-Vitamin] Tablet 1 tab PO DAILY Santyl 250 unit/gram ointment 1 applic topical DAILY dextromethorphan-guaifenesin [Antitussive DM] 10-100 mg/5 mL syrup 10 ml PO Q8H PRN (Reason: cough) acetaminophen [Aminofen] 325 mg tablet 650 mg PO Q6H PRN (Reason: fever or pain) Mucinex DM 30-600 mg Tablet Extended Release 12 Hr 1 tab PO BID 7 Days Qty: 14 0RF L.acidoph,saliva-B.bif-S.therm 175 mg Capsule 1 cap PO 3XD Qty: 0 0RF magnesium chloride [Mag 64] 64 mg Tablet,Delayed Release (Dr/Ec) 128 mg PO BID Qty: 0 0RF thiamine HCl (vitamin B1) 100 mg tablet 100 mg PO DAILY Qty: 30 2RF atorvastatin 10 mg tablet 10 mg PO QHS docusate sodium [Col-Rite] 100 mg capsule 100 mg PO DAILY ertapenem 1 gram recon soln 1 g IV Q24H hydroxyzine pamoate [Vistaril] 25 mg capsule 25 mg PO TID Referrals / Follow Up: Tj Watters DO [Primary Care Provider] - Within 1 Week Disposition Disposition (needs filled in before D/C Order can be placed): [facility] Facility
--- NOTE | 2024-10-29 14:42 | CASEMGMT ---
Social Work Precert has been obtained.? Physician updated and pt is ready for discharge today. SW met with pt and they are agreeable to discharge plan as stated above.?DCA and bedside nurse notified of discharge. DCA to complete final arrangements and notifications to family. [facility] under convalescent stay. ZAYRA Dela Cruz
--- NOTE | 2024-10-29 15:11 | PHA.DC.MR.R ---
Pharmacy [place] Med Reconciliation Pharmacy Service has performed discharge medication reconciliation for this patient. The patient's discharge medication list was reviewed for discrepancies and discrepancies were resolved. Medications at Discharge Home Medications albuterol sulfate 90 mcg/actuation aerosol inhaler 1 inh inhalation Q6H PRN shortness of breath or wheezing #8.5 grams 02/26/21 pregabalin 150 mg capsule 150 mg PO BID PAIN 06/19/24 dicyclomine 10 mg capsule 10 mg PO TIDAC COLITIS #60 caps 07/23/24 mesalamine 500 mg capsule,extended release (Pentasa) 500 mg PO BID pain/inflammation 30 days #60 caps 07/23/24 pantoprazole 40 mg tablet,delayed release 40 mg PO DAILY GERD #30 tabs 07/23/24 acetaminophen 325 mg tablet (Aminofen) 650 mg PO Q6H PRN fever or pain 10/08/24 collagenase clostridium histo. 250 unit/gram topical ointment (Santyl) 1 applic topical DAILY WOUND CARE 10/08/24 dextromethorphan-guaifenesin 10 mg-100 mg/5 mL oral syrup (Antitussive DM) 10 ml PO Q8H PRN cough 10/08/24 hydrocortisone acetate 25 mg rectal suppository 25 mg NC Q12H MUCOUS MEMBRANE 10/08/24 ipratropium 0.5 mg-albuterol 3 mg (2.5 mg base)/3 mL nebulization soln 3 ml inhalation Q8H PRN SOB 10/08/24 multivitamin (Daily Multi-Vitamin tablet) 1 tab PO DAILY SUPPLEMENT 10/08/24 L.acidophil,salivari-Bifido bifidum-Strep thermoph 175 mg capsule 1 cap PO 3XD probotoic #0 caps 10/17/24 dextromethorphan-guaifenesin 30 mg-600 mg tablet extended [id number] hr (Mucinex DM) 1 tab PO BID congestion 7 days #14 tabs 10/17/24 magnesium chloride 64 mg (magnesium chloride) tablet,delayed release (Mag 64) 128 mg (2 x 64 mg) PO BID supplement #0 tabs 10/17/24 thiamine HCl (vitamin B1) 100 mg tablet 100 mg PO DAILY supplement #30 tabs 10/17/24 atorvastatin 10 mg tablet 10 mg PO QHS hld 10/24/24 docusate sodium 100 mg capsule (Col-Rite) 100 mg PO DAILY bowel 10/24/24 ertapenem 1 gram solution for injection 1 g IV Q24H atb 10/24/24 hydroxyzine pamoate 25 mg capsule (Vistaril) 25 mg PO TID anxiety 10/24/24
--- NOTE | 2024-10-29 16:10 | NURSING ---
All documentation by assistant in nursing Narciso Ascencio reviewed by nursing home director Ysabel STEPHENSN, RN.
--- NOTE | 2024-10-29 16:11 | CASEMGMT ---
Discharge Planning Discharge orders, signed med list, and transport time sent to [facility]. Physicians will transport pt by wheelchair at 5:30p. Nursing, SW, and pt updated. left for pts . Kaity Ramirez DC Planning Asst.
--- NOTE | 2024-10-29 16:41 | DS.PCM_ITS ---
Providers Date of Admission: 10/25/24 Date of Discharge: 10/29/24 Primary Care Physician: Dr. Tj Watters, Reason For Visit: PULLED OUT PICC LINE, ALTERED MENTAL STATUS AND Diagnosis Discharge Diagnosis (1) Cavitary pneumonia: Status: Acute Code(s): J18.9 - Pneumonia, unspecified organism; J98.4 - Other disorders of lung Plan #Hypoxia due to cavitary pneumonia * was admitted due to patient pulling out PICC line. * PICC line has been replaced * on IV ertapenem till 11/12/2024 per ID recommendations * #Ulcerative colitis: on hydrocortisone and mesalamine #Anemia: * Hemoglobin is 8.3 today. Hemoglobin has been fluctuating between 8-10 was as low as 1.4 on 10/17/2024. * This is chronic. Will monitor. * #Thrombocytopenia: * Platelets are down to 121 today from 124 yesterday. Was 192 a few days ago. * I will monitor closely. * If it continues to trend downwards will DC heparin. * #DVT prophylaxis: heparin Code status: full code Disposition: per discussion with case management, wants him to go to a different SNF. Case management helping to facilitate this. Medications at Discharge Home Medications albuterol sulfate 90 mcg/actuation aerosol inhaler 1 inh inhalation Q6H PRN shortness of breath or wheezing #8.5 grams 02/26/21 pregabalin 150 mg capsule 150 mg PO BID PAIN 06/19/24 dicyclomine 10 mg capsule 10 mg PO TIDAC COLITIS #60 caps 07/23/24 mesalamine 500 mg capsule,extended release (Pentasa) 500 mg PO BID pain/inflammation 30 days #60 caps 07/23/24 pantoprazole 40 mg tablet,delayed release 40 mg PO DAILY GERD #30 tabs 07/23/24 acetaminophen 325 mg tablet (Aminofen) 650 mg PO Q6H PRN fever or pain 10/08/24 collagenase clostridium histo. 250 unit/gram topical ointment (Santyl) 1 applic topical DAILY WOUND CARE 10/08/24 dextromethorphan-guaifenesin 10 mg-100 mg/5 mL oral syrup (Antitussive DM) 10 ml PO Q8H PRN cough 10/08/24 hydrocortisone acetate 25 mg rectal suppository 25 mg MD Q12H MUCOUS MEMBRANE 10/08/24 ipratropium 0.5 mg-albuterol 3 mg (2.5 mg base)/3 mL nebulization soln 3 ml inhalation Q8H PRN SOB 10/08/24 multivitamin (Daily Multi-Vitamin tablet) 1 tab PO DAILY SUPPLEMENT 10/08/24 L.acidophil,salivari-Bifido bifidum-Strep thermoph 175 mg capsule 1 cap PO 3XD probotoic #0 caps 10/17/24 dextromethorphan-guaifenesin 30 mg-600 mg tablet extended [id number] hr (Mucinex DM) 1 tab PO BID congestion 7 days #14 tabs 10/17/24 magnesium chloride 64 mg (magnesium chloride) tablet,delayed release (Mag 64) 128 mg (2 x 64 mg) PO BID supplement #0 tabs 10/17/24 thiamine HCl (vitamin B1) 100 mg tablet 100 mg PO DAILY supplement #30 tabs 10/17/24 atorvastatin 10 mg tablet 10 mg PO QHS hld 10/24/24 docusate sodium 100 mg capsule (Col-Rite) 100 mg PO DAILY bowel 10/24/24 ertapenem 1 gram solution for injection 1 g IV Q24H atb 10/24/24 hydroxyzine pamoate 25 mg capsule (Vistaril) 25 mg PO TID anxiety 10/24/24 Hospital Course Operations None Procedures None Summary of Care Provided Minutes Spent on Discharge: 38 Hospital Course: Patient is a 74-year-old male with an extensive past medical history as outlined who was admitted via the ED from his senior living facility on account of altered mental status. Patient had also pulled out his PICC line. Patient had an antecedent history of admission at [facility] from August septic August 24, 2024 for sepsis due to pneumonia and a flareup of ulcerative colitis in the setting of partially treated C. difficile. He was eventually transferred to [facility] for that index admission and was also subsequently admitted at [facility] from October 05 to October 17, 2024 for treatment for cavitary pneumonia in the setting of recurrent aspiration. Sputum cultures from that admission were positive for MSSA he was discharged to the long term on IV ertapenem for 6 weeks via the PICC line. This said PICC line is what he pulled out in the evening of October 24, 2024 when he was brought into the ED on October 25, 2024 for further evaluation. On admission CTA of the chest with and without contrast showed no filling defects to suggest PE and showed blooming effect of interval treatment with more patchy areas of opacity in the lungs with mild increase nonocclusive airway secretions and increase of air-fluid levels of associated cavities. CT of the brain showed no acute intracranial pathology and showed redemonstration of encephalomalacia of the inferior right supraorbital frontal lobe. There was concern for aspiration pneumonia again. He was admitted to manage for acute encephalopathy in the setting of cavitary pneumonia. He had a PICC line inserted again. And he remained stable. He was discharged to a senior living facility on 10/29/2024 for continuation of his IV ertapenem till 11/12/2024 per ID recommendation. Patient seen and examined prior to discharge. He had no active complaints and remained quite lethargic. Review of systems otherwise negative. Labs and vitals reviewed. Medication reviewed and reconciled. Physical Exam Const alert and no apparent distress Constitutional Narrative: frail, weak, flat affect General Appearance: cooperative Orientation / Consciousness: awake, confused and lethargic Exam Limitations: altered mental status HEENT normocephalic, head/scalp atraumatic, hearing grossly normal bilaterally, moist oral mucous membranes, oropharynx normal and gingiva normal Mouth: oral and palatal mucosa normal Eyes PERRL, EOMs intact bilaterally and conjunctivae normal Neck no lymphadenopathy and supple Lymph Lymphatic: no lymphadenopathy noted and no lymphedema noted Resp Resp Narrative: mildly diminished breath sounds bibasally, no wheezes or crackles. On 3L of oxygen by nasal canula Auscultation: rhonchi Cardio regular rate, regular rhythm, S1 normal heart sound, S2 normal heart sound and no murmurs GI normal to inspection, nondistended, normoactive bowel sounds, soft to palpation, non-tender and non-distended GI Narrative: colostomy in place with soft light brown stool. Extremity normal to inspection, full ROM, normal capillary refill, no clubbing, cyanosis or edema and no calf tenderness General Extremity: no tenderness to palpation of joints or extremities Neuro CN's II-XII intact bilaterally and moves all extremities Sensorium / Orientation: awake Motor Exam: general weakness Psych Mood & Affect: flat affect Weight / BMI Weight Weight: 140 lb 6.951 oz Body Mass Index (BMI) 20.0 ABG / Lab / Microbiology Data 10/29/24 03:48 04/16/25 03:48 Laboratory: Laboratory Results - last 24 hr 10/28/24 16:39: POC Glucose 147 H 10/29/24 00:09: POC Glucose 142 H 10/29/24 03:48: WBC 3.9 L, RBC 2.75 L, Hgb 7.8 L, Hct 24.5 L, MCV 89.1, MCH 28.4, MCHC 31.8 L, RDW Std Deviation 48.6 H, RDW Coeff of Janice 15.0 H, Plt Count 142 L, MPV 10.0, Immature Gran % (Auto) 1.000 H, Neut % (Auto) 63.2, Lymph % (Auto) 22.8, Thurston % (Auto) 11.7 H, Eos % (Auto) 1.0, Baso % (Auto) 0.3, Absolute Neuts (auto) 2.5, Absolute Lymphs (auto) 0.90, Nucleated RBC % 0, Sodium 139, P otassium 3.1 L, Chloride 110 H, Carbon Dioxide 21.5, Anion Gap 7, BUN 4, C reatinine 0.31 L, Estim Creat Clear Calc 74.10, Est GFR (MDRD) Non-Af 124, BUN/Creatinine Ratio 13.3, Glucose 111 H, Calcium 7.6 10/29/24 06:24: POC Glucose 101 10/29/24 11:44: POC Glucose 176 H Microbiology: Microbiology 10/24/24 22:38 Mucosa - Nose SARS-CoV-2, Influenza & RSV (PCR) - Final D/C Instructions Discharge Diet: Low fat / Low cholesterol Discharge Activity: Return to Normal Activity Weight Bearing Status: Weight bearing as tolerated Call your doctor if you observe: Fever of 101 or Higher, Shortness of breath, Dizziness and Chest pain DC O2, CPAP, BIPAP Needs Home O2 Discharge instructions: No DC home with Oxygen: No Meaningful Use Info Meaningful Use Meaningful Use Diagnoses (Choose all that apply): None applicable Ischemic Stroke Statin Dosing Therapy Reference: STATIN DOSE THERAPY REFERENCE: * Patients > 75 years receive moderate or high dose statin therapy. * Patients 75 years or YOUNGER should receive HIGH intensity statin dose unless contraindicated. You will be required to document reason for non-treatment if statin daily dose does not meet guidelines. HIGH DOSE STATIN THERAPY DAILY Atorvastatin > than or = to 40 mg Rosuvastatin > than or = to 20 mg Amlodipine + Atorvastatin > than or = to 2.5/40 mg Ezetimibe + Simvastatin 10/80 mg Simvastatin 80mg Discharge Plan Admission Admit Date/Time: 10/25/24 02:06 Primary Reason for Your Visit: cavitary pneumonia Attending Provider: Dorothea Islas Primary Care Provider: Tj Watters Consulting Providers: Khris Landrum; Jus Whitmore Instructions Patient Instructions: ED Pneumonia (Adult) Discharge Orders/Prescriptions Prescriptions: Continued albuterol sulfate 90 mcg/actuation HFA aerosol inhaler 1 inh inhalation Q6H PRN (Reason: shortness of breath or wheezing) Qty: 8.5 1RF pregabalin 150 mg capsule 150 mg PO BID pantoprazole 40 mg Tablet,Delayed Release (Dr/Ec) 40 mg PO DAILY Qty: 30 0RF dicyclomine 10 mg Capsule 10 mg PO TIDAC Qty: 60 0RF mesalamine [Pentasa] 500 mg capsule, extended release 500 mg PO BID 30 Days Qty: 60 0RF hydrocortisone acetate 25 mg suppository 25 mg MD Q12H ipratropium-albuterol 0.5 mg-3 mg(2.5 mg base)/3 mL solution for nebulization 3 ml inhalation Q8H PRN (Reason: SOB) multivitamin [Daily Multi-Vitamin] Tablet 1 tab PO DAILY Santyl 250 unit/gram ointment 1 applic topical DAILY dextromethorphan-guaifenesin [Antitussive DM] 10-100 mg/5 mL syrup 10 ml PO Q8H PRN (Reason: cough) acetaminophen [Aminofen] 325 mg tablet 650 mg PO Q6H PRN (Reason: fever or pain) Mucinex DM 30-600 mg Tablet Extended Release 12 Hr 1 tab PO BID 7 Days Qty: 14 0RF L.acidoph,saliva-B.bif-S.therm 175 mg Capsule 1 cap PO 3XD Qty: 0 0RF magnesium chloride [Mag 64] 64 mg Tablet,Delayed Release (Dr/Ec) 128 mg PO BID Qty: 0 0RF thiamine HCl (vitamin B1) 100 mg tablet 100 mg PO DAILY Qty: 30 2RF atorvastatin 10 mg tablet 10 mg PO QHS docusate sodium [Col-Rite] 100 mg capsule 100 mg PO DAILY ertapenem 1 gram recon soln 1 g IV Q24H hydroxyzine pamoate [Vistaril] 25 mg capsule 25 mg PO TID Referrals / Follow Up: Tj Watters DO [Primary Care Provider] - Within 1 Week Disposition Disposition (needs filled in before D/C Order can be placed): Senior Care Facility Charges/Coding Visit Charges Inpatient E&M: 22412 Disch Hosp >30min
== END 2024-10-29 17:50 | disposition skilled nursing facility (03) ==
LOC: ED 22:26 → MS3 10-25 02:41
PROVIDERS: Admitting Provider Internal Medicine; Emergency Provider Emergency Medicine; PCP Internal Medicine; Visit Provider Student in an Organized Health Care Education/Training Program
DX: Z45.2 Encounter for adjustment and management of vascular access device (principal); Z93.3 Colostomy status; J44.0 Chronic obstructive pulmonary disease with (acute) lower respiratory infection; K51.90 Ulcerative colitis, unspecified, without complications; E11.40 Type 2 diabetes mellitus with diabetic neuropathy, unspecified; J18.9 Pneumonia, unspecified organism; I10 Essential (primary) hypertension; G93.41 Metabolic encephalopathy; K21.9 Gastro-esophageal reflux disease without esophagitis; D69.6 Thrombocytopenia, unspecified; R09.02 Hypoxemia; D64.9 Anemia, unspecified; F10.11 Alcohol abuse, in remission; Z11.52 Encounter for screening for COVID-19; E78.00 Pure hypercholesterolemia, unspecified; G93.89 Other specified disorders of brain; Z79.2 Long term (current) use of antibiotics; Z79.899 Other long term (current) drug therapy; Z87.891 Personal history of nicotine dependence
CPT/HCPCS: 36569; 36415; 70450; 71275; 74230; 80048; 80053; 81002; 82803; 82962; 83880; 84484; 85025; 87631; 92526; 92610; 92611; 93005; 96361; 96365; 96366; 96372; 97162; 97166; 97803; 99221; 99252; 99285; 99406; P9612; A4216; G0378; G0463